=== PATIENT | male | born 2000 | race Caucasian/White ===

== ENCOUNTER 2023-08-29 20:22 | Inpatient (IN) | payer SELFPAY ==
[2023-08-29 20:26] VITALS: BP 163/84; PULSE 115; RESP 16; TEMP 36.7; O2SAT 96; BMI 30.4
--- NOTE | 2023-08-29 20:32 | ED.C_ITS ---
HPI - Psych 2 General: Chief Complaint: Psychiatric Symptoms Stated Complaint: SI Time Seen by Provider: 08/29/23 20:22 History of Present Illness: 24-year-old male presents emergency depa rtment via EMS personnel with complaints of feeling like he is very depressed and having significant thoughts of harming himself. He states that he recently got out of detention and since that time he is been more and more depressed. He states that he did get an argument with his mother earlier that this evening and when he was leaving the house and decided to walk down the street he thought about turning around and going back to the house getting a gun and putting it to his head and pulling the trigger just so he could end his life. He states his sister recently approximately 1 month ago and the thing that kept him from killing himself today was that he did not want to put additional burden on his mother. Patient is very tearful during our discussion. He states he has attempted previously to take his life by overdosing on pills. He states he has not taken any pills today. He states he realizes he needs some help and just does not know where to go or what to do. He denies homicidal ideation Associated symptoms: Reports depression and suicidal ideation; Deny auditory hallucinations, visual hallucinations or homicidal ideation Review of Systems 2 General: Reports: 10 or more systems reviewed and unremarkable except in HPI and below Psych: Reports: anxiety, depression and suicidal ideation; Denies: visual hallucinations, auditory hallucinations, tactile hallucinations or homicidal ideation Physical Exam 2 Narrative: EXAM NARRATIVE: Constitutional: the patient appears well nourished and with normal development. Vital signs reviewed as documented. HENMT: Normocephalic, atraumatic. External ears normal appearance without drainage. Nose without drainage, normal appearance. Mucus membranes moist. Neck is supple, No jugular venous distension, trachea is midline, no appreciable carotid bruits. No lymphadenopathy. No meningeal signs. Flexion, extension and lateral rotation is without pain. Eyes: Pupils are equal, round, reactive to light and accommodation. No scleral icterus. Extra-ocular movement are intact. Thorax is symmetrical and with equal rise and fall with respirations. Resp: Lungs are clear to auscultation. No wheezes, rales, crackles or ronchi at present. Cardio: Regular rate and rhythm. Positive S1, S2. No appreciable murmurs, rubs or gallops. GI: Abdominal exam reveals normal bowel sounds to all quadrants. No organomegaly. Soft, non-tender to palpation. Extremity: Extremities are non-edematous and both femoral and pedal pulses are 2+ and equal bilaterally. Moves all extremities well, sensation in all extremities. Neuro: Alert and oriented x4, person, place, time and situation. Cranial nerves II through XII are grossly intact, there is no focal neurological deficits that I can appreciate at present. Motor strength in the upper and lower extremities are equal and bilateral 5/5. Psych: Cooperative, calm, tearful, depressed, suicidal ideation. Skin: No lesions, rashes. No gross abnormalities noted. Back: Symmetrical, no obvious deformity, No CVA tenderness Course 2 Vital Signs: Vital signs: Vital Signs Temperature 98.0 F 08/29/23 20: Pulse Rate 115 H 08/29/23 20: Respiratory Rate 16 08/29/23 20: Blood Pressure 163/84 08/29/23 20: Pulse Oximetry 96 08/29/23 20:26 Oxygen Delivery Me thod Room Air 08/29/23 20:26 MDM - Psych Medical Decision Making Physical exam completed and documented I will obtain psychiatric medical clearance labs and contact the neuro psychiatry unit for placement Medical Records I reviewed the patient's medical records. Lab Data I reviewed the patient's lab results. 08/29/23 20:33 08/29/23 20:33 Laboratory Results WBC 9.02 10^3/uL (4.5-13.0) 08/29/23 20: RBC 5.14 10^6/uL (3.85-5.65) 08/29/23 20: Hgb 15.80 g/dL (13.2-15.6) H 08/29/23 20:33 Hct 47.1 % (37-53) 08/29/23 20: MCV 91.6 fl (82-101) 08/29/23 20: MCH 30.7 pg (27-33) 08/29/23 20: MCHC 33.5 g/dL (30-55) 08/29/23 20: RDW 12.3 % (12.1-15.1) 08/29/23 20: Plt Count 256 10^3/cmm (157-399) 08/29/23 20: MPV 9.0 fL (7.4-10.4) 08/29/23 20: Neut % (Auto) 68.1 % 08/29/23 20: Lymph % (Auto) 22.9 % 08/29/23 20: [place] % (Auto) 7.0 % 08/29/23 20: Eos % (Auto) 0.8 % 08/29/23 20: Baso % (Auto) 0.3 % 08/29/23: Neut # (Auto) 6.14 10^3/uL (1.8-8.0) 08/29/23 20: Lymph # (Auto) 2.1 10^3/uL (1.5-6.5) 08/29/23: [place] # (Auto) 0.6 10^3/uL (0.2-0.9) 08/29/23 20: Eos # (Auto) 0.1 10^3/uL (0.0-0.8) 08/29/23: Baso # (Auto) 0.0 10^3/uL (0.0-0.1) 08/29/23 20: Nucleated RBC % (auto) 0 % 08/29/23: Nucleated RBCs # 0.0 /100WBC 08/29/23 20: Sodium 141 mmol/L (136-145) 08/29/23 20: Potassium 4.2 mmol/L (3.5-5.1) 08/29/23 20: Chloride 104 mmol/L (98-107) 08/29/23 20: Carbon Dioxide 26 mmol/L (22-29) 08/29/23 20:33 Anion Gap 15.2 (5-19) 08/29/23 20:33 BUN 12 mg/dL (6-20) 08/29/23 20: Creatinine 0.7 mg/dL (0.7-1.2) 08/29/23 20: GFR Calculation 143.8 mL/min (90-130) H 08/29/23 20: Glucose 107 mg/dL (65-115) 08/29/23 20: Calculated Osmolality 292 mOsm/kg (285-295) 08/29/23 20: Calcium 9.6 mg/dL (8.5-10.5) 08/29/23 20:33 Total Bilirubin 0.2 mg/dL (0.15-1.2) 08/29/23 20:33 AST 51 U/L (0-40) H 08/29/23 20:33 ALT 89 U/L (0-41) H 08/29/23 20:33 Alkaline Phosphatase 74 U/L (40-130) 08/29/23 20: Total Protein 7.2 g/dL (6.6-8.7) 08/29/23 20: Albumin 4.7 g/dL (3.5-5.2) 08/29/23 20: Globulin 2.5 g/dL (1.3-4.6) 08/29/23 20: Urine Color Yellow (Yellow) 08/29/23 21:08 Urine Appearance Sl hazy (CLEAR) A 08/29/23 21:08 Urine pH 6.5 (5-7) 08/29/23 21:08 Ur Specific [place] 1.020 (1.005-1.030) 08/29/23 21:08 Urine Protein Neg (Negative) 08/29/23 21:08 Urine Glucose (UA) Norm (Normal) 08/29/23 21:08 Urine Ketones Negative (Negative) 08/29/23 21: Urine Blood Neg (Negative) 08/29/23 21:08 Urine Nitrate Negative (Negative) 08/29/23 21:08 Urine Bilirubin Neg (Negative) 08/29/23 21:08 Urine Urobilinogen Norm mg/dL (Negative) 08/29/23 21:08 Ur Leukocyte Esterase Negative (Negative) 08/29/23 21:08 Urine RBC 0-4 /hpf (0-2) H 08/29/23 21:08 Urine WBC 0-4 /hpf (0-5) H 08/29/23 21:08 Ur Squamous Epith Cells 0-4 /hpf (0-5) H 08/29/23 21:08 Amorphous Sediment 3+ /hpf 08/29/23 21:08 Urine Bacteria 1+ /hpf (NONE) H 08/29/23 21:08 Salicylates < 0.3 mg/dL (3-10) L 08/29/23 20:33 Urine Opiates Screen Negative ng/mL (Negative) 02/13/24 21:08 Acetaminophen < 5.0 ug/mL (10-30) L 08/29/23 20:33 Ur Barbiturates Screen Negative ng/mL (Negative) 08/29/23 21:08 Ur Phencyclidine Scrn Negative ng/mL (Negative) 08/29/23 21:08 Ur Amphetamines Screen Negative ng/mL (Negative) 08/29/23 21:08 U Benzodiazepines Scrn Positive ng/mL (Negative) H 08/29/23 21:08 Urine Cocaine Screen Negative ng/mL (Negative) 08/29/23 21:08 U Marijuana (THC) Screen Positive ng/mL (Negative) H 08/29/23 21:08 Ethyl Alcohol < 10 mg/dL (0-10) 08/29/23 20:33 No radiology studies performed this visit Discharge Plan Discharge Patient Disposition: Admitted As Inpatient Clinical Impression: Major depressive disorder, Suicidal ideations Condition: Stable Coding Level of Care Code ED Manager Landscape for Nish Stapleton
[2023-08-29 20:39] LABS: Basophils % 0.3 %; Eosinophils # 0.1 10^3/uL (0.0-0.8); Eosinophils % 0.8 %; Hematocrit 47.1 % (37-53); Lymphocytes # 2.1 10^3/uL (1.5-6.5); Lymphocytes % 22.9 %; Mean Corpuscular HGB Conc 33.5 g/dL (30-55); Mean Corpuscular Hemoglobin 30.7 pg (27-33); Mean Corpuscular Volume 91.6 fl (82-101); Monocytes # 0.6 10^3/uL (0.2-0.9); Neutrophils # 6.14 10^3/uL (1.8-8.0); Neutrophils % 68.1 %; Nucleated Red Blood Cells % 0 %; Platelet Count 256 10^3/cmm (157-399); Red Blood Count 5.14 10^6/uL (3.85-5.65); Red Cell Distribution Width 12.3 % (12.1-15.1); White Blood Count 9.02 10^3/uL (4.5-13.0)
[2023-08-29 20:56] LABS: Alanine Aminotransferase 89 U/L (0-41); Albumin Level 4.7 g/dL (3.5-5.2); Alkaline Phosphatase 74 U/L (40-130); Anion Gap 15.2 (5-19); Aspartate Amino Transferase 51 U/L (0-40); Blood Urea Nitrogen 12 mg/dL (6-20); Calcium 9.6 mg/dL (8.5-10.5); Carbon Dioxide 26 mmol/L (22-29); Chloride 104 mmol/L (98-107); Globulin 2.5 g/dL (1.3-4.6); Glomerular Filtration Rate 143.8 mL/min (90-130); Glucose 107 mg/dL (65-115); Osmolality Calculated 292 mOsm/kg (285-295); Potassium 4.2 mmol/L (3.5-5.1); Sodium 141 mmol/L (136-145); Total Bilirubin 0.2 mg/dL (0.15-1.2); Total Protein 7.2 g/dL (6.6-8.7)
[2023-08-29 21:00] LABS: Acetaminophen < 5.0 ug/mL (10-30); Alcohol Level < 10 mg/dL (0-10); Salicylate < 0.3 mg/dL (3-10)
[2023-08-29 21:30] LABS: Amphetamines Screen Urine Negative (Negative); Barbiturates Screen Urine Negative (Negative); Benzodiazepines Screen Urine Positive (Negative); Cocaine Screen Urine Negative (Negative); Opiate Screen Urine Negative (Negative); PCP Screen Urine Negative (Negative); THC Screen Urine Positive (Negative)
[2023-08-29 22:20] LABS: Add Urine Culture? No; Add Urine Microscopic? YES; Amorphous Sediment Urine 3+ /hpf; Bacteria Urine 1+ /hpf; Bilirubin Urine Neg (Negative); Blood Urine Neg (Negative); Glucose Urine UA Norm (Normal); Ketones Urine Negative (Negative); Leukocyte Esterase Urine Negative (Negative); Nitrate Urine Negative (Negative); Protein Urine Neg (Negative); RBC Urine 0-4 /hpf (0-2); Squamous Epithelial Cell Urine 0-4 /hpf (0-5); Urine Appearance SL Hazy (CLEAR); Urine Color Yellow (Yellow); Urobilinogen Urine Norm (Negative); WBC Urine 0-4 /hpf (0-5); pH Urine 6.5 (5-7)
[2023-08-29 23:40] VITALS: BP 124/71; PULSE 98; RESP 17; O2SAT 94
[2023-08-30 00:13] VITALS: BP 124/71; PULSE 98; RESP 17; O2SAT 94
[2023-08-30 06:00] VITALS: BP 131/87; PULSE 84; RESP 16; TEMP 36.6; O2SAT 98
[2023-08-30 08:02] LABS: Basophils % 0.3 %; Eosinophils # 0.1 10^3/uL (0.0-0.8); Eosinophils % 1.4 %; Hematocrit 47.4 % (37-53); Lymphocytes # 1.8 10^3/uL (1.5-6.5); Lymphocytes % 26.8 %; Mean Corpuscular HGB Conc 32.9 g/dL (30-55); Mean Corpuscular Hemoglobin 30.4 pg (27-33); Mean Corpuscular Volume 92.4 fl (82-101); Monocytes # 0.7 10^3/uL (0.2-0.9); Monocytes % 10.8 %; Neutrophils # 3.95 10^3/uL (1.8-8.0); Neutrophils % 60.2 %; Nucleated Red Blood Cells % 0 %; Platelet Count 234 10^3/cmm (157-399); Red Blood Count 5.13 10^6/uL (3.85-5.65); Red Cell Distribution Width 12.4 % (12.1-15.1); White Blood Count 6.56 10^3/uL (4.5-13.0)
[2023-08-30 08:23] LABS: Anion Gap 15.6 (5-19); Blood Urea Nitrogen 18 mg/dL (6-20); Calcium 9.2 mg/dL (8.5-10.5); Carbon Dioxide 28 mmol/L (22-29); Chloride 101 mmol/L (98-107); Glomerular Filtration Rate 123.2 mL/min (90-130); Glucose 101 mg/dL (65-115); Osmolality Calculated 292 mOsm/kg (285-295); Potassium 4.6 mmol/L (3.5-5.1); Sodium 140 mmol/L (136-145)
[2023-08-30] MEDS: nicotine 2 mg Gum BUCCAL ×3 (10:15→20:33)
[2023-08-30] MEDS: hyDROXYzine 25 mg Capsule 50 MG PO (10:15)
--- NOTE | 2023-08-30 10:39 | PC.NURSE ---
SPOKE WITH [facility] @[phone] VERIFING PT HOME MEDICATION. PT WAS DISCHARGED FROM THEIR FACILITY ON 08/04/2023, PT RETURNED TO [facility] WHERE HE WAS INCARCERATED FROM 07/25/23-08-23-23. UPON RELEASE PT WAS UNABLE TO HAT SIZER HIS PRESCRIPTION DO TO LACK OF FUNDS AND NO INSURANCE.
[2023-08-30] MEDS: ARIPiprazole 30 mg Tablet PO (12:38)
[2023-08-30] MEDS: nicotine 21 mg Patch 1 PATCH TRANSDERMA (13:16)
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
[2023-08-30 14:00] VITALS: BP 126/80; PULSE 99; RESP 16; TEMP 36.8; O2SAT 98
[2023-08-30] MEDS: CLONazepam 0.5 mg Tablet PO ×2 (14:28→20:05)
[2023-08-30] MEDS: trazodone 100 mg Tablet PO (20:05)
[2023-08-30 21:13] VITALS: BP 151/80; PULSE 93; RESP 20; TEMP 36.7; O2SAT 99
[2023-08-31 06:00] VITALS: BP 139/69; PULSE 99; RESP 17; TEMP 36.4; O2SAT 99
--- NOTE | 2023-08-31 06:35 | PC.NURSE ---
At the beginning of the shift patient approached this tech requesting to speak. 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 Patient stated that he knew that he was not on a hold and inquired about leaving AMA. This tech spoke with patient about his concerns and told patient that I would speak with the Charge nurse and get back to him. After speaking with the CN, this tech spoke with the patient and asked if he would consider staying the night tonight and speaking with the Doctor about his concerns in the morning. Patient agreed and stated that his mother has the next couple of days off and he was wanting to help her around the house. 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 I let patient know to make sure that he addresses his concerns with the Doctor. Patient was very appreciative and thankful for the talk.
[2023-08-31] MEDS: CLONazepam 0.5 mg Tablet PO ×3 (08:13→20:06)
[2023-08-31] MEDS: ARIPiprazole 30 mg Tablet PO (08:13)
[2023-08-31] MEDS: nicotine 21 mg Patch 1 PATCH TRANSDERMA (08:13)
[2023-08-31] MEDS: OLANZapine 5 mg ODT PO (12:42)
--- NOTE | 2023-08-31 12:57 | PC.NURSE ---
pt in hallway tearful, stating he is ready to explode if he isn't discharged today, pt started to cry saying this place is just [facility] and I want to go home.spoke with pt about the importance of having his medication back in his system so that he is able to cope with his emotions more efficiently. pt stated understanding.
[2023-08-31 14:00] VITALS: BP 120/69; PULSE 111; RESP 18; TEMP 36.8; O2SAT 97
--- NOTE | 2023-08-31 14:37 | P.NPUPN_ITS ---
Subjective NPU 2 Subjective: 22-year-old male with a history of bipolar depression along with panic attacks and PTSD admitted with suicidal ideation with a plan to shoot himself with a gun. The patient reports that he did not feel comfortable being here. He reported not having suicidal thoughts at this time. He had endorsed some depression but stated that he would feel comfortable with going home soon. Patient had appeared to ruminate about things and reported that he continued to have problems with obsessing about various things in his life. He had reported history of mood instability but stated the Abilify had been helpful for him. He reported no panic attacks last night while remaining on Klonopin routinely. He had reported some improved sleep. Mental Status Exam 2 MSE Comments: Well-nourished well-developed male who appeared his stated age with fair grooming and fleeting eye contact. There was no evidence of any abnormal involuntary motor movements other than mild psychomotor retardation. He was cooperative with exam and appeared in mild to moderate distress. His speech was normal in regards to rate rhythm and prosody. His mood was described as depressed. His affect was less tearful. His thought process was linear, logical, and organized. His thought content showed no evidence of suicidal ideation with no current plan or intent reported. He denied any homicidal ideation. He did not appear to be responding to internal stimuli. There was no clear evidence of delusional thinking. He denied any auditory or visual hallucinations. He was alert and oriented x 3. His insight was fair. His judgment was poor. His impulse control appeared limited at this time. Vitals/I&O/Wt Last Vital Signs Temp 97.5 F L 08/31/23 06:00 Pulse 99 08/31/23 06:00 Resp 17 08/31/23 06:00 BP 139/69 08/31/23 06:00 Pulse Ox 99 08/31/23 06:00 O2 Del Method Room Air 08/31/23 06:00 Weight last 48 hrs Weight 90.718 kg Data NPU 08/30/23 07:46 08/30/23 07:46 A&P Assessment and plan (1) Bipolar disorder with depression: (2) Panic attacks: (3) History of OCD (obsessive compulsive disorder): (4) Suicidal ideations: (5) PTSD (post-traumatic stress disorder): Plan 22-year-old white male extended history of depression currently diagnosed with bipolar disorder admitted with suicidal ideation and worsening depression along with a history of increased anxiety accompanied by panic attacks. 1. ?Encourage individual, group and milieu therapy. 2. Recommend sober living treatment at the highest level of care to which the patient is willing to commit. 3. Continue q-15 minute checks for safety 4.Continue klonopin, aripiprazole, luvox and trazodone as prescribed Involuntary Hold Information 2 96 Hour Hold: 96 Hour Involuntary Admission: No Attestations NPU 2 Medical Necessity Statement*: Inpatient hospitalization is medically necessary and deemed to be the clinically appropriate intervention at this time.? Medications will be initiated and adjusted as clinically indicated.?The patient?s likely length of stay is 2-3 days.? Coding Level of Care Code Acute Code for [facility] Fwd Diagnoses Bipolar disorder with depression F31.9 Panic attacks F41.0 History of OCD (obsessive compulsive disorder) Z86.59 Suicidal ideations R45.851 PTSD (post-traumatic stress disorder) F43.10
[2023-08-31] MEDS: nicotine 2 mg Gum BUCCAL ×2 (16:44→19:48)
[2023-08-31 19:24] VITALS: BP 126/67; PULSE 97; RESP 18; TEMP 36.6; O2SAT 98
[2023-08-31] MEDS: trazodone 100 mg Tablet PO (20:06)
[2023-08-31] MEDS: NON-FORMULARY MEDICATION (Fluvoxamine 100 MG) 100 EACH PO (20:06)
[2023-09-01 06:00] VITALS: BP 148/87; PULSE 73; RESP 15; TEMP 36.4; O2SAT 98
[2023-09-01] MEDS: CLONazepam 0.5 mg Tablet PO (08:07)
[2023-09-01] MEDS: ARIPiprazole 30 mg Tablet PO (08:07)
[2023-09-01] MEDS: nicotine 2 mg Gum BUCCAL ×2 (08:09→10:28)
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
[2023-09-01 12:14] VITALS: BP 148/87; PULSE 73; RESP 15; TEMP 36.4; O2SAT 98
[2023-09-01] MEDS: hyDROXYzine 25 mg Capsule 50 MG PO (13:11)
== END 2023-09-01 13:45 | disposition home or self-care (01) | DRG 885 ==
LOC: ER 21:52 → NP 23:47
PROVIDERS: Admitting Provider Psychiatry & Neurology Psychiatry; Emergency Provider Internal Medicine; PCP Nurse Practitioner Family; Visit Provider Psychiatry & Neurology Psychiatry
DX: F31.9 Bipolar disorder, unspecified (principal); R45.851 Suicidal ideations; F41.0 Panic disorder [episodic paroxysmal anxiety]; F43.10 Post-traumatic stress disorder, unspecified; Z72.0 Tobacco use
CPT/HCPCS: 36415; 80048; 80053; 80306; 80307; 81001; 85025; 97165; 99285

== ENCOUNTER 2023-09-27 00:21 | Inpatient (IN) | payer SELFPAY ==
[2023-09-27] VITALS (8 sets, daily range): BP systolic 111–135; BP diastolic 67–82; PULSE 72–83; RESP 16–18; TEMP 36.3–36.7; O2SAT 96–98; BMI 31.0
--- NOTE | 2023-09-27 00:25 | ECG_ITS ---
[facility] Test Date: 2023-09-26 Pat Name: Parth Newman Department: Room: 150 Gender: Male [employer]: : 2000 Requested By: Atilio Mack Order Number: [id number] Brneden MD: Chang Russell M.D. Measurements Intervals [place] Rate: 68 P: 15 WI: 156 QRS: 34 QRSD: 103 T: 5 QT: 336 QTc: 359 Interpretive Statements SINUS RHYTHM WITH MARKED SINUS ARRHYTHMIA NONSPECIFIC T-WAVE ABNORMALITY No previous ECG available for comparison Electronically Signed On 09-27-2023 10:56:19 CDT by Chang Russell M.D. [id number]
--- NOTE | 2023-09-27 00:26 | ED.C_ITS ---
HPI - Psych 2 General: Chief Complaint: Psychiatric Symptoms Stated Complaint: SI Time Seen by Provider: 09/27/23 00:25 History of Present Illness: 22-year-old male [facility] Patient states that he has had a recent family member and became very depressed. He states he has had history in the past of attempted suicide and tonight he became depressed enough that he had collected 7 or 8 different bottles of pills and was initially going to take the pills but then got an argument with his mother who stated that she reminded him that there was other people think about besides himself at which time the police were called and he came voluntarily to the emergency department to seek help. He states that he has not having thoughts of homicidal ideation. He states he is very depressed and needs to get help. He denies auditory or visual hallucinations. Patient states he is previously admitted here to the neuropsychiatric unit and was discharged on September 01, 2023. Associated symptoms: Reports depression and suicidal ideation; Deny auditory hallucinations, visual hallucinations or homicidal ideation Review of Systems 2 General: Reports: 10 or more systems reviewed and unremarkable except in HPI and below Psych: Reports: depression and suicidal ideation; Denies: visual hallucinations, auditory hallucinations, tactile hallucinations or homicidal ideation PFS ED 2 PFSH: Social History Smoking and tobacco/nicotine status: current every day tobacco/nicotine user Physical Exam 2 Narrative: EXAM NARRATIVE: Constitutional: the patient appears well nourished and with normal development. Vital signs reviewed as documented. HENMT: Normocephalic, atraumatic. External ears normal appearance without drainage. Nose without drainage, normal appearance. Mucus membranes moist. Neck is supple, No jugular venous distension, trachea is midline, no appreciable carotid bruits. No lymphadenopathy. No meningeal signs. Flexion, extension and lateral rotation is without pain. Eyes: Pupils are equal, round, reactive to light and accommodation. No scleral icterus. Extra-ocular movement are intact. Thorax is symmetrical and with equal rise and fall with respirations. Resp: Lungs are clear to auscultation. No wheezes, rales, crackles or ronchi at present. Cardio: Regular rate and rhythm. Positive S1, S2. No appreciable murmurs, rubs or gallops. GI: Abdominal exam reveals normal bowel sounds to all quadrants. No organomegaly. No obvious palpable masses noted. No hepatomegally appreciated. Soft, non-tender to palpation. Extremity: Extremities are non-edematous and both femoral and pedal pulses are 2+ and equal bilaterally. Moves all extremities well, sensation in all extremities. Neuro: Alert and oriented x4, person, place, time and situation. Cranial nerves II through XII are grossly intact, there is no focal neurological deficits that I can appreciate at present. Sensation intact to all extremities. Motor strength in the upper and lower extremities are equal and bilateral 5/5. Psych: Cooperative, calm, depressed, suicidal ideation, Skin: No lesions, rashes. No gross abnormalities noted. Back: Symmetrical, no obvious deformity, No CVA tenderness Course 2 Vital Signs: Vital signs: Vital Signs Temperature 97.4 F L 09/27/23 20:15 Pulse Rate 72 09/27/23 20:15 Respiratory Rate 16 09/27/23 20:15 Blood Pressure 124/82 09/27/23 20:15 Pulse Oximetry 97 09/27/23 20:15 Oxygen Delivery Me thod Room Air 09/27/23 20:15 MDM - Psych Medical Decision Making Physical exam completed and documented I will obtain psychiatric medical clearance labs and request admission to the neuropsych unit. Medical Records I reviewed the patient's medical records. Lab Data I reviewed the patient's lab results. 09/27/23 08:20 09/27/23 08:20 Laboratory Results WBC 8.83 10^3/uL (4.5-13.0) 09/27/23 00:30 RBC 5.12 10^6/uL (3.85-5.65) 09/27/23 00:30 Hgb 15.60 g/dL (13.2-15.6) 09/27/23 00:30 Hct 45.3 % (37-53) 09/27/23 00:30 MCV 88.5 fl (82-101) 09/27/23 00:30 MCH 30.5 pg (27-33) 09/27/23 00:30 MCHC 34.4 g/dL (30-55) 09/27/23 00:30 RDW 12.2 % (12.1-15.1) 09/27/23 00:30 Plt Count 314 10^3/cmm (157-399) 09/27/23 00:30 MPV 8.5 fL (7.4-10.4) 09/27/23 00:30 Neut % (Auto) 64.1 % 09/27/23 00:30 Lymph % (Auto) 27.1 % 09/27/23 00:30 [place] % (Auto) 7.8 % 09/27/23 00:30 Eos % (Auto) 0.3 % 09/27/23 00:30 Baso % (Auto) 0.5 % 09/27/23 00:30 Neut # (Auto) 5.66 10^3/uL (1.8-8.0) 09/27/23 00:30 Lymph # (Auto) 2.4 10^3/uL (1.5-6.5) 09/27/23 00:30 [place] # (Auto) 0.7 10^3/uL (0.2-0.9) 09/27/23 00:30 Eos # (Auto) 0.0 10^3/uL (0.0-0.8) 09/27/23 00:30 Baso # (Auto) 0.0 10^3/uL (0.0-0.1) 09/27/23 00:30 Nucleated RBC % (auto) 0 % 09/27/23 00:30 Nucleated RBCs # 0.0 /100WBC 09/27/23 00:30 Sodium 139 mmol/L (136-145) 09/27/23 00:30 Potassium 3.7 mmol/L (3.5-5.1) 09/27/23 00:30 Chloride 103 mmol/L (98-107) 09/27/23 00:30 Carbon Dioxide 20 mmol/L (22-29) L 09/27/23 00:30 Anion Gap 19.7 (5-19) H 09/27/23 00:30 BUN 13 mg/dL (6-20) 09/27/23 00:30 Creatinine 0.9 mg/dL (0.7-1.2) 09/27/23 00:30 GFR Calculation 107.6 mL/min (90-130) 09/27/23 00:30 Glucose 84 mg/dL (65-115) 09/27/23 00:30 Calculated Osmolality 287 mOsm/kg (285-295) 09/27/23 00:30 Calcium 9.5 mg/dL (8.5-10.5) 09/27/23 00:30 Total Bilirubin 0.4 mg/dL (0.15-1.2) 09/27/23 00:30 AST 19 U/L (0-40) 09/27/23 00:30 ALT 26 U/L (0-41) 09/27/23 00:30 Alkaline Phosphatase 81 U/L (40-130) 09/27/23 00:30 Total Protein 7.8 g/dL (6.6-8.7) 09/27/23 00:30 Albumin 5.2 g/dL (3.5-5.2) 09/27/23 00:30 Globulin 2.6 g/dL (1.3-4.6) 09/27/23 00:30 Urine Color Yellow (Yellow) 09/27/23 00:38 Urine Appearance Sl hazy (CLEAR) A 09/27/23 00:38 Urine pH 5 (5-7) 09/27/23 00:38 Ur Specific Fox 1.030 (1.005-1.030) 09/27/23 00:38 Urine Protein Trace (Negative) 09/27/23 00:38 Urine Glucose (UA) Norm (Normal) 09/27/23 00:38 Urine Ketones 1+ (Negative) H 09/27/23 00:38 Urine Blood 2+ (Negative) H 09/27/23 00:38 Urine Nitrate Negative (Negative) 09/27/23 00:38 Urine Bilirubin Neg (Negative) 09/27/23 00:38 Urine Urobilinogen Neg mg/dL (Negative) 09/27/23 00:38 Ur Leukocyte Esterase Negative (Negative) 09/27/23 00:38 Urine RBC 0-4 /hpf (0-2) H 09/27/23 00:38 Urine WBC None /hpf (0-5) 09/27/23 00:38 Ur Squamous Epith Cells None /hpf (0-5) 09/27/23 00:38 Calcium Oxalate Crystal 0-4 /hpf H 09/27/23 00:38 Amorphous Sediment Not Reportable 09/27/23 00:38 Urine Bacteria Trace /hpf (NONE) 09/27/23 00:38 Urine Mucus 3+ /hpf 09/27/23 00:38 Salicylates < 0.3 mg/dL (3-10) L 09/27/23 00:30 Urine Opiates Screen Negative ng/mL (Negative) 09/27/23 00:38 Acetaminophen < 5.0 ug/mL (10-30) L 09/27/23 00:30 Ur Barbiturates Screen Negative ng/mL (Negative) 09/27/23 00:38 Ur Phencyclidine Scrn Negative ng/mL (Negative) 09/27/23 00:38 Ur Amphetamines Screen Negative ng/mL (Negative) 09/27/23 00:38 U Benzodiazepines Scrn Positive ng/mL (Negative) H 09/27/23 00:38 Urine Cocaine Screen Negative ng/mL (Negative) 09/27/23 00:38 U Marijuana (THC) Screen Positive ng/mL (Negative) H 09/27/23 00:38 Ethyl Alcohol < 10 mg/dL (0-10) 09/27/23 00:30 No radiology studies performed this visit Discharge Plan Discharge Patient Disposition: Admitted As Inpatient Admit Provider: Fadi Bowie Clinical Impression: Suicidal ideation Depression Qualifiers: Depression Type: unspecified Qualified Code(s): F32.A - Depression, unspecified Condition: Stable Coding Level of Care Code ED Flatbed [employer] 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
[2023-09-27 00:37] LABS: Basophils % 0.5 %; Eosinophils % 0.3 %; Hematocrit 45.3 % (37-53); Lymphocytes # 2.4 10^3/uL (1.5-6.5); Lymphocytes % 27.1 %; Mean Corpuscular HGB Conc 34.4 g/dL (30-55); Mean Corpuscular Hemoglobin 30.5 pg (27-33); Mean Corpuscular Volume 88.5 fl (82-101); Mean Platelet Volume 8.5 fL (7.4-10.4); Monocytes # 0.7 10^3/uL (0.2-0.9); Monocytes % 7.8 %; Neutrophils # 5.66 10^3/uL (1.8-8.0); Neutrophils % 64.1 %; Nucleated Red Blood Cells % 0 %; Platelet Count 314 10^3/cmm (157-399); Red Blood Count 5.12 10^6/uL (3.85-5.65); Red Cell Distribution Width 12.2 % (12.1-15.1); White Blood Count 8.83 10^3/uL (4.5-13.0)
[2023-09-27 00:54] LABS: Amphetamines Screen Urine Negative (Negative); Barbiturates Screen Urine Negative (Negative); Benzodiazepines Screen Urine Positive (Negative); Cocaine Screen Urine Negative (Negative); Opiate Screen Urine Negative (Negative); PCP Screen Urine Negative (Negative); THC Screen Urine Positive (Negative)
[2023-09-27 00:55] LABS: Alanine Aminotransferase 26 U/L (0-41); Albumin Level 5.2 g/dL (3.5-5.2); Alkaline Phosphatase 81 U/L (40-130); Anion Gap 19.7 (5-19); Aspartate Amino Transferase 19 U/L (0-40); Blood Urea Nitrogen 13 mg/dL (6-20); Calcium 9.5 mg/dL (8.5-10.5); Carbon Dioxide 20 mmol/L (22-29); Chloride 103 mmol/L (98-107); Creatinine Clr Calc Pharmacy 149.1141; Globulin 2.6 g/dL (1.3-4.6); Glomerular Filtration Rate 107.6 mL/min (90-130); Glucose 84 mg/dL (65-115); Osmolality Calculated 287 mOsm/kg (285-295); Potassium 3.7 mmol/L (3.5-5.1); Sodium 139 mmol/L (136-145); Total Bilirubin 0.4 mg/dL (0.15-1.2); Total Protein 7.8 g/dL (6.6-8.7)
[2023-09-27] MEDS: haloperidol inj 5 mg/mL INJ 1 mL IM (01:18)
[2023-09-27 01:20] LABS: Urine Color Yellow (Yellow)
[2023-09-27 01:21] LABS: Add Urine Microscopic? YES; Bacteria Urine TRACE /hpf; Bilirubin Urine Neg (Negative); Blood Urine 2+ (Negative); Calcium Oxalate Crystals Urine 0-4 /hpf; Glucose Urine UA Norm (Normal); Ketones Urine 1+ (Negative); Leukocyte Esterase Urine Negative (Negative); Mucus Urine 3+ /hpf; Nitrate Urine Negative (Negative); Protein Urine Trace (Negative); RBC Urine 0-4 /hpf (0-2); Urine Appearance SL Hazy (CLEAR); Urobilinogen Urine Neg (Negative); pH Urine 5 (5-7)
[2023-09-27 01:22] LABS: Acetaminophen < 5.0 ug/mL (10-30); Alcohol Level < 10 mg/dL (0-10); Salicylate < 0.3 mg/dL (3-10)
[2023-09-27 01:22] LABS: Add Urine Culture? No
--- NOTE | 2023-09-27 01:37 | PC.NURSE ---
Patient report was called to CALVIN Martinez in [facility]. All questions and concerns were addressed at time of report.
--- NOTE | 2023-09-27 02:40 | PC.NURSE ---
Admission Note Pt arrived to [facility] by wheelchair at 0145. Pt complains of suicidal ideation, Pt stated that he is here because he is having at lot of stressors at home. Pt had a plan to overdose of medications he found at home but voluntarily went with police officers to get help. During assessment pt denies SI/HI/AVH. Pt also told staff that he has not taken any of his medications since he was last admitted. Pt was dressed into [facility] scrubs and is now observed resting in bed with eyes closed. Behavioral monitoring continues.
--- NOTE | 2023-09-27 06:48 | PC.NURSE ---
Due to patient arriving late to until, per CN on RR documented.
[2023-09-27 08:34] LABS: Basophils % 0.4 %; Eosinophils # 0.1 10^3/uL (0.0-0.8); Hematocrit 45.9 % (37-53); Lymphocytes # 2.4 10^3/uL (1.5-6.5); Lymphocytes % 34.4 %; Mean Corpuscular HGB Conc 34.2 g/dL (30-55); Mean Corpuscular Hemoglobin 30.8 pg (27-33); Mean Corpuscular Volume 90.2 fl (82-101); Mean Platelet Volume 8.7 fL (7.4-10.4); Monocytes # 0.5 10^3/uL (0.2-0.9); Monocytes % 7.7 %; Neutrophils # 3.95 10^3/uL (1.8-8.0); Neutrophils % 56.4 %; Nucleated Red Blood Cells % 0 %; Platelet Count 285 10^3/cmm (157-399); Red Blood Count 5.09 10^6/uL (3.85-5.65); Red Cell Distribution Width 12.4 % (12.1-15.1); White Blood Count 7.01 10^3/uL (4.5-13.0)
[2023-09-27 09:14] LABS: Blood Urea Nitrogen 15 mg/dL (6-20); Carbon Dioxide 21 mmol/L (22-29); Chloride 102 mmol/L (98-107); Creatinine Clr Calc Pharmacy 149.1141; Glomerular Filtration Rate 107.6 mL/min (90-130); Glucose 128 mg/dL (65-115); Osmolality Calculated 286 mOsm/kg (285-295); Sodium 137 mmol/L (136-145)
[2023-09-27 09:18] LABS: Anion Gap 18.2 (5-19); Potassium 4.2 mmol/L (3.5-5.1)
[2023-09-27] MEDS: hyDROXYzine 25 mg Capsule 50 MG PO ×2 (12:09→20:29)
[2023-09-27] MEDS: nicotine 2 mg Gum BUCCAL (12:15)
[2023-09-27] MEDS: OLANZapine 5 mg ODT PO ×2 (12:36→20:30)
[2023-09-27] MEDS: haloperidol 5 mg Tablet PO (12:52)
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
--- NOTE | 2023-09-27 13:12 | PC.NURSE ---
Patient tearful, upset and anxious about the possibility of going to care home. Patient given zyprexa 5mg ODT first, a short time later, patient given haldol 5mg PO.
[2023-09-28 06:00] VITALS: BP 115/77; PULSE 78; RESP 16; TEMP 36.4; O2SAT 98
[2023-09-28] MEDS: hyDROXYzine 25 mg Capsule 50 MG PO ×3 (08:16→19:45)
[2023-09-28] MEDS: ARIPiprazole 30 mg Tablet PO (08:17)
[2023-09-28] MEDS: nicotine 2 mg Gum BUCCAL (08:18)
[2023-09-28] MEDS: OLANZapine 5 mg ODT PO ×2 (09:05→14:14)
--- NOTE | 2023-09-28 09:05 | PC.NURSE ---
Patient visibly anxious, tearful, pacing the halls. Patient given zyprexa 5mg ODT
--- NOTE | 2023-09-28 10:51 | P.NPUPN_ITS ---
Subjective NPU 2 Subjective: Patient presented today reporting that he is appreciative of being here and feels he is probably fine to go home. He discussed how he has bouts of anxiety that leads to him overreacting at times. We discussed that these are things medication could be helpful with and that we would make sure he has medication at discharge. Additionally we had a lengthy discussion about the crisis stabilization center and how it could act as a middle ground for moments where he is struggling. Instead of coming to the emergency department we discussed him going to the crisis stabilization center and having someone he could speak to and help deconstruct the situation. He denies any side effects of the medication. We discussed the likelihood of discharge tomorrow. Mental Status Exam 2 MSE Comments: This is a well-nourished, well-developed, white male, in hospital scrubs with adequate grooming and limited contact. No abnormal movements, except for mild psychomotor agitation. Cooperative with exam in mild to moderate distress. Speech was mostly normal rate and slightly decreased volume, quivering a lot secondary to being on the verge of tears. Mood described as depressed and anxious; affect emotional and occasionally tearful. Thought process, organized. Thought content: patient denies active suicidal or homicidal ideation; patient endorsed paranoia but he feels that is related to his situation may be; patient denied any auditory or visual hallucinations. Attention, concentration, and memory appeared intact, but none were formally tested. Alert and oriented times three. Insight and judgment appear fair. Impulse control is limited. Vitals/I&O/Wt Last Vital Signs Temp 97.5 F L 09/28/23 06:00 Pulse 78 09/28/23 06:00 Resp 16 09/28/23 06:00 BP 115/77 09/28/23 06:00 Pulse Ox 98 09/28/23 06:00 O2 Del Method Room Air 09/28/23 06:00 Weight last 48 hrs Weight 95.254 kg Data NPU 09/27/23 08:20 09/27/23 08:20 A&P Assessment and plan (1) Bipolar disorder with depression: (2) Panic attacks: (3) History of OCD (obsessive compulsive disorder): (4) Suicidal ideations: (5) PTSD (post-traumatic stress disorder): Plan 22-year-old white male extended history of depression currently diagnosed with bipolar disorder admitted with suicidal ideation and worsening depression along with a history of increased anxiety accompanied by panic attacks. 1. ?Encourage individual, group and milieu therapy. 2. Recommend sober living treatment at the highest level of care to which the patient is willing to commit. 3. Continue q-15 minute checks for safety 4. Restart medications at appropriate doses. Involuntary Hold Information 2 96 Hour Hold: 96 Hour Involuntary Admission: No Attestations NPU 2 Medical Necessity Statement*: Inpatient hospitalization is medically necessary and the clinically appropriate intervention at this time. We will monitor medications and make changes as indicated. Likely length of stay 1 day. Coding Level of Care Code Acute Code for [facility] Fwd Diagnoses Bipolar disorder with depression F31.9 Panic attacks F41.0 History of OCD (obsessive compulsive disorder) Z86.59 Suicidal ideations R45.851 PTSD (post-traumatic stress disorder) F43.10
[2023-09-28] MEDS: haloperidol 5 mg Tablet PO (11:15)
[2023-09-28 13:54] VITALS: BP 121/73; PULSE 97; RESP 17; TEMP 36.5; O2SAT 97
--- NOTE | 2023-09-28 15:34 | PC.NURSE ---
PT HAS RECEIVED MULTIPLE PRN MEDIATIONS FOR ANXIETY. VISTARIL 50 MG TIMES 2, ZYDIS 5 MG TIMES 2 AND HALDOL 5 MG TIMES ONE. PT CONTINUES TO STATE HE IS VERY ANXIOUS AND NOTHING HAS HELPED, IT ONLY PUTS ME TO SLEEP. DR. MONTGOMERY WAS NOTIFIED OF PT STATUS AND MULTIPLE USE OF PRNS. NEW ORDERS WERE RECEIVED FOR CLONAZEPAM 0.5 MG PO DAILY PRN FOR ANXIEY/AGITATION. PT WAS EDUCATED ON NEW ORDERS, ALL QUESTIONS ANSWERED AND SUPPORT WAS VOICED.
[2023-09-28] MEDS: CLONazepam 0.5 mg Tablet PO (18:05)
[2023-09-28] MEDS: trazodone 100 mg Tablet PO (19:46)
[2023-09-28 20:40] VITALS: BP 115/59; PULSE 71; RESP 17; TEMP 36.8; O2SAT 96
[2023-09-29 06:00] VITALS: BP 159/79; PULSE 95; RESP 15; TEMP 36.6; O2SAT 97
[2023-09-29] MEDS: ARIPiprazole 30 mg Tablet PO (07:41)
[2023-09-29] MEDS: hyDROXYzine 25 mg Capsule 50 MG PO (07:41)
--- NOTE | 2023-09-29 07:47 | PC.NURSE ---
Patient reports mild anxiety because he is ready to be discharged so he won't miss his niece's birthday constitution party today. Patient denies SI, HI, AVH. Patient states that he is try to stay even and calm despite his anxiety. Administered vistaril 50mg PO to patient.
[2023-09-29] MEDS: nicotine 2 mg Gum BUCCAL (09:06)
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
[2023-09-29] MEDS: CLONazepam 0.5 mg Tablet PO (12:26)
[2023-09-29 12:50] VITALS: BP 159/79; PULSE 95; RESP 15; TEMP 36.6; O2SAT 97
== END 2023-09-29 14:00 | disposition home or self-care (01) | DRG 885 ==
LOC: ER 00:36 → NP 01:31
PROVIDERS: Admitting Provider Psychiatry & Neurology Psychiatry; Emergency Provider Internal Medicine; PCP Nurse Practitioner Family; Visit Provider Psychiatry & Neurology Psychiatry
DX: F31.9 Bipolar disorder, unspecified (principal); R45.851 Suicidal ideations; F41.1 Generalized anxiety disorder; F41.0 Panic disorder [episodic paroxysmal anxiety]; F90.9 Attention-deficit hyperactivity disorder, unspecified type; F42.9 Obsessive-compulsive disorder, unspecified; F43.10 Post-traumatic stress disorder, unspecified; F17.210 Nicotine dependence, cigarettes, uncomplicated; F12.90 Cannabis use, unspecified, uncomplicated; Z81.8 Family history of other mental and behavioral disorders; Z81.3 Family history of other psychoactive substance abuse and dependence; Z91.51 Personal history of suicidal behavior; Z62.812 Personal history of neglect in childhood; Z62.810 Personal history of physical and sexual abuse in childhood; Z62.811 Personal history of psychological abuse in childhood; Z91.410 Personal history of adult physical and sexual abuse; J45.909 Unspecified asthma, uncomplicated
CPT/HCPCS: 36415; 80048; 80053; 80306; 80307; 81001; 85025; 93005; 96372; 97165; 99285; J1630

== ENCOUNTER 2023-11-18 13:56 | Inpatient (IN) | payer SELFPAY ==
[2023-11-18 13:57] VITALS: BP 147/86; PULSE 69; RESP 18; TEMP 36.6; O2SAT 97
--- NOTE | 2023-11-18 14:01 | W.ED.PSYCHS ---
HPI - Psych General: Chief Complaint: Psychiatric Symptoms Stated Complaint: MHE Time Seen by Provider: 11/18/23 14:00 Source: patient Mode of arrival: EMS History of Present Illness: 23-year-old male presents to the emergency room via EMS. He had called 911 because he was concerned he would hurt himself medications in a bag been keeping by his bed thinking about harming himself but he has not yet done anything to this point. He has been seen by [facility] [place] for an intake but did not have any follow-up response to be on several medications and not been taking it because it logistically cannot afford them and cannot get anywhere to refill his medications. Self last couple weeks is collected large number of [id number] MD complaint: suicidal ideation Onset (ago): week(s) Relieving factors: none Exacerbating factors: none Associated symptoms: Reports depression and suicidal ideation; Deny auditory hallucinations, visual hallucinations, delusions, homicidal ideation, racing thoughts or other Treatments prior to arrival: none If self harm: admits thoughts of self harm and has plan Review of Systems Const: Denies: fever(s) or chills Card: Denies: chest pain Resp: Denies: dyspnea GI: Denies: abdominal pain : Denies: dysuria, urinary frequency or urinary urgency Musc: Denies: neck pain or back pain Skin/Breast: Denies: rash Psych: Reports: depression and suicidal ideation; Denies: visual hallucinations, auditory hallucinations or homicidal ideation [facility] PFSH: Medical History Psychiatric care Depression Social History Smoking and tobacco/nicotine status: current every day tobacco/nicotine user Physical Exam Const: GENERAL APPEARANCE: cooperative and comfortable ORIENTATION/CONSCIOUSNESS: Yes awake, Yes oriented to person, Yes oriented to place and Yes oriented to time HENMT: COMMON NORMALS: normocephalic, atraumatic and hearing grossly normal bilaterally HEAD & SCALP: normocephalic and atraumatic Resp: COMMON NORMALS: normal respiratory effort, No retractions, No use of accessory muscles and clear to auscultation bilaterally AUSCULTATION: clear to auscultation bilaterally Cardio: COMMON NORMALS: regular rate, regular rhythm and No murmurs present (Cardio) RATE: regular rate RHYTHM: regular rhythm Extremity: COMMON NORMALS: normal to inspection, capillary refill normal, no clubbing, cyanosis or edema, no calf tenderness and no pedal edema Neuro: SENSORIUM/ORIENTATION: Yes oriented to person, Yes oriented to place and Yes oriented to time Psych: THOUGHT CONTENT: No delusions Skin: COMMON NORMALS: no rashes or lesions noted GENERAL SKIN EXAM: no rashes or lesions noted Course Vital Signs: Vital signs: Vital Signs Temperature 98 F 11/18/23 13:57 Pulse Rate 69 11/18/23 13:57 Respiratory Rate 18 11/18/23 13:57 Blood Pressure 147/86 11/18/23 13:57 Pulse Oximetry 97 11/18/23 13:57 Oxygen Delivery Me thod Room Air 11/18/23 13:57 MDM - Psych Medical Decision Making Patient has had been planning for several weeks to harm himself has not yet advance lethality. He was previously on medications but was unable to get them. Discussed with Dr. Bowie on-call for hospitalist will admit. Orders written Medical Records I reviewed the patient's medical records. Lab Data I reviewed the patient's lab results. 11/18/23 14:21 11/18/23 14:21 Laboratory Results WBC 6.33 10^3/uL (3.29-11.43) 11/18/23 14:21 RBC 4.95 10^6/uL (3.85-5.65) 11/18/23 14:21 Hgb 15.30 g/dL (11.27-16.99) 11/18/23 14:21 Hct 44.7 % (37-53) 11/18/23 14:21 MCV 90.3 fl (82-101) 11/18/23 14:21 MCH 30.9 pg (27-33) 11/18/23 14:21 MCHC 34.2 g/dL (30-55) 11/18/23 14:21 RDW 11.9 % (12.1-15.1) L 11/18/23 14:21 Plt Count 265 10^3/cmm (157-399) 11/18/23 14:21 MPV 9.3 fL (7.4-10.4) 11/18/23 14:21 Neut % (Auto) 58.5 % 11/18/23 14:21 Lymph % (Auto) 31.0 % 11/18/23 14:21 [place] % (Auto) 8.5 % 11/18/23 14:21 Eos % (Auto) 1.3 % 11/18/23 14:21 Baso % (Auto) 0.5 % 11/18/23 14:21 Neut # (Auto) 3.71 10^3/uL (1.8-7.7) 11/18/23 14:21 Lymph # (Auto) 2.0 10^3/uL (0.8-4.8) 11/18/23 14:21 [place] # (Auto) 0.5 10^3/uL (0.2-0.9) 11/18/23 14:21 Eos # (Auto) 0.1 10^3/uL (0.0-0.8) 11/18/23 14:21 Baso # (Auto) 0.0 10^3/uL (0.0-0.1) 11/18/23 14:21 Nucleated RBC % (auto) 0 % 11/18/23 14:21 Nucleated RBCs # 0.0 /100WBC 11/18/23 14:21 No radiology studies performed this visit Discharge Plan Discharge Patient Disposition: Admitted As Inpatient Clinical Impression: Suicidal ideation, Depression Condition: Stable Prescriptions: No Action Zyrtec 10 mg Tablet 10 mg PO DAILY Tylenol Ex Str Rapid Release 500 mg Tablet 1,000 mg PO Q6H PRN (Reason: Pain) ibuprofen 200 mg Tablet 400 mg PO Q6H PRN (Reason: Pain) Referrals: Ludmila Goncalves FNP [Primary Care Provider] - Coding Level of Care Code ED Supply Chain Generalist for Nsih Stapleton
--- NOTE | 2023-11-18 14:40 | PC.PHAR ---
pt states he takes care of his own medications-pt states hasnt taken his prescription medications in a month-ext shows aripiprazole 30mg daily filled 09/29/23 30d/s-trazodone 100mg hs filled 09/29/23 30d/s-hydroxyzine pamoate 50mg po q6h prn filled 09/29/23 15d/s-rx written fluvoxamine 100mg take 50mg po daily for 6 days then 100mg daily thereafter and clonazepam 0.5mg daily prn 09/29/23-pt states only taken the medications entered
[2023-11-18 14:42] LABS: Basophils % 0.5 %; Eosinophils # 0.1 10^3/uL (0.0-0.8); Eosinophils % 1.3 %; Hematocrit 44.7 % (37-53); Mean Corpuscular HGB Conc 34.2 g/dL (30-55); Mean Corpuscular Hemoglobin 30.9 pg (27-33); Mean Corpuscular Volume 90.3 fl (82-101); Mean Platelet Volume 9.3 fL (7.4-10.4); Monocytes # 0.5 10^3/uL (0.2-0.9); Monocytes % 8.5 %; Neutrophils # 3.71 10^3/uL (1.8-7.7); Neutrophils % 58.5 %; Nucleated Red Blood Cells % 0 %; Platelet Count 265 10^3/cmm (157-399); Red Blood Count 4.95 10^6/uL (3.85-5.65); Red Cell Distribution Width 11.9 % (12.1-15.1); White Blood Count 6.33 10^3/uL (3.29-11.43)
[2023-11-18 15:07] LABS: Alanine Aminotransferase 10 U/L (0-41); Albumin Level 4.8 g/dL (3.5-5.2); Alkaline Phosphatase 75 U/L (40-130); Aspartate Amino Transferase 15 U/L (0-40); Blood Urea Nitrogen 13 mg/dL (6-20); Calcium 9.5 mg/dL (8.5-10.5); Carbon Dioxide 20 mmol/L (22-29); Chloride 105 mmol/L (98-107); Creatinine Clr Calc Pharmacy 144.5395; Globulin 2.6 g/dL (1.3-4.6); Glomerular Filtration Rate 106.5 mL/min (90-130); Glucose 86 mg/dL (65-115); Osmolality Calculated 287 mOsm/kg (285-295); Sodium 139 mmol/L (136-145); Total Bilirubin 0.6 mg/dL (0.15-1.2); Total Protein 7.4 g/dL (6.6-8.7)
[2023-11-18 15:16] LABS: Acetaminophen < 5.0 ug/mL (10-30); Salicylate < 0.3 mg/dL (3-10)
[2023-11-18 15:55] VITALS: BP 153/91; PULSE 61; RESP 16; TEMP 36.4; O2SAT 99
[2023-11-18] MEDS: hyDROXYzine 25 mg Capsule 50 MG PO (16:23)
[2023-11-18] MEDS: OLANZapine 5 mg ODT PO (17:02)
--- NOTE | 2023-11-18 17:03 | PC.NURSE ---
patient crying, pacing the ibarra. This nurse administered zyprexa 5mg odt.
[2023-11-18] MEDS: haloperidol 5 mg Tablet PO (17:39)
--- NOTE | 2023-11-18 17:39 | PC.NURSE ---
Patient anxious, crying and pacing the ibarra. Patient states that the previous medications this nurse has administered were unsuccessful at alleviating his anxiety. Attempts to verbally de-esculate were unsuccessful. Administered haldol 5mg PO to patient
[2023-11-18] MEDS: nicotine 2 mg Gum BUCCAL (17:49)
[2023-11-18 18:33] LABS: Amphetamines Screen Urine Negative (Negative); Barbiturates Screen Urine Negative (Negative); Benzodiazepines Screen Urine Negative (Negative); Cocaine Screen Urine Negative (Negative); Opiate Screen Urine Negative (Negative); PCP Screen Urine Negative (Negative); THC Screen Urine Positive (Negative)
[2023-11-18 19:51] VITALS: BP 136/73; PULSE 59; RESP 18; TEMP 36.6; O2SAT 97
[2023-11-19 06:00] VITALS: BP 131/80; PULSE 66; RESP 18; TEMP 36.6; O2SAT 99
[2023-11-19] MEDS: ARIPiprazole 30 mg Tablet PO (08:34)
[2023-11-19 14:00] VITALS: BP 140/73; PULSE 89; RESP 17; TEMP 36.6; O2SAT 96
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
[2023-11-19] MEDS: nicotine 2 mg Gum BUCCAL (18:06)
[2023-11-19] MEDS: quetiapine XR (24HR) 50 mg Tablet 200 MG PO (19:57)
[2023-11-19 20:53] VITALS: BP 149/79; PULSE 90; RESP 18; TEMP 36.4; O2SAT 97
[2023-11-20 06:00] VITALS: BP 136/76; PULSE 90; RESP 16; O2SAT 99
[2023-11-20] MEDS: hyDROXYzine 25 mg Capsule 50 MG PO (09:59)
[2023-11-20] MEDS: ARIPiprazole 30 mg Tablet PO (10:00)
[2023-11-20] MEDS: nicotine 2 mg Gum BUCCAL ×2 (10:12→13:36)
[2023-11-20 14:00] VITALS: BP 127/82; PULSE 85; RESP 16; TEMP 36.6; O2SAT 98
--- NOTE | 2023-11-20 15:35 | P.NPUPN_ITS ---
Subjective NPU 2 Subjective: patient is a 23-year-old male with bipolar depression admitted with suicidal ideation. Patient had reported that she had slept better on Seroquel given last night. He had endorsed that he continued to have periods of sadness but stated that he would try to be patient and go home when he was better. He had reported having continued recurring thoughts about being but states that he did not have any particular plan. He stated that he had a tendency to ruminate about these thoughts and stated that he had hoped that therapy could help him with better managing his stress and help him better manage the recurring thoughts that often overwhelmed him. He was compliant and attended groups. He reported no other side effects from his Seroquel. He had again reported that he had not been taking Abilify for greater than a month and was agreeable to discontinuing this medication today. Mental Status Exam 2 MSE Comments: This is a well-nourished, well-developed, white male, in hospital scrubs with adequate grooming and limited contact. No abnormal movements, except for mild psychomotor retardation today. He was cooperative with exam in mild to moderate distress. Speech was mostly normal rate and normal in volume. Mood described as down. His affect was less anxious with decreased intensity appreciated. Thought process was linear and organized. Thought content: patient denies active homicidal ideation but endorsed passive suicidal ideation with no plan today; Patient denied any auditory or visual hallucinations. There was no evidence of delusional thinking. Attention, concentration, and memory appeared intact, but none were formally tested. Alert and oriented times three. Insight was poor and judgment appear limited. Impulse control is limited. Vitals/I&O/Wt Last Vital Signs Temp 98 F 11/20/23 14:00 Pulse 85 11/20/23 14:00 Resp 16 11/20/23 14:00 BP 127/82 11/20/23 14:00 Pulse Ox 98 11/20/23 14:00 O2 Del Method Room Air 11/20/23 14:00 Weight last 48 hrs Weight 90.718 kg Data NPU 11/18/23 14:21 11/18/23 14:21 A&P Assessment and plan (1) Bipolar disorder with depression: (2) Panic attacks: (3) History of OCD (obsessive compulsive disorder): (4) Suicidal ideations: (5) PTSD (post-traumatic stress disorder): Plan 22-year-old white male extended history of bipolar disorder admitted with suicidal ideation and worsening depression along with a history of increased anxiety accompanied by panic attacks. He has a history of noncompliance with medications and reports substantial use of THC. 1. ?Encourage individual, group and milieu therapy. 2. Recommend sober living treatment at the highest level of care to which the patient is willing to commit. 3. Continue q-15 minute checks for safety 4. Increase seroquel xr 300mg at 8Pm to target bipolar depression. D/C abilify. Involuntary Hold Information 2 96 Hour Hold: 96 Hour Involuntary Admission: No Attestations NPU 2 Medical Necessity Statement*: Inpatient hospitalization is medically necessary and the clinically appropriate intervention at this time. We will monitor medications and make changes as indicated. He will be in the hospital for over 2 midnights. The patient's likely length of stay 3 to 5 days. Coding Level of Care Code Acute Code for g Fwd Diagnoses Bipolar disorder with depression F31.9 Panic attacks F41.0 History of OCD (obsessive compulsive disorder) Z86.59 Suicidal ideations R45.851 PTSD (post-traumatic stress disorder) F43.10
[2023-11-20] MEDS: nicotine 4 mg lozenge MUCOUS MEM (17:53)
[2023-11-20] MEDS: quetiapine XR (24HR) 300 mg Tablet PO (19:34)
[2023-11-20] MEDS: docusate sodium 100 mg Capsule PO (19:34)
[2023-11-20 20:06] VITALS: BP 142/86; PULSE 89; RESP 16; TEMP 36.7; O2SAT 96
[2023-11-21 06:00] VITALS: BP 143/87; PULSE 91; RESP 18; TEMP 36.4; O2SAT 97
[2023-11-21] MEDS: nicotine 2 mg Gum BUCCAL ×5 (10:08→20:11)
[2023-11-21 14:00] VITALS: BP 143/86; PULSE 89; RESP 16; TEMP 36.6; O2SAT 97
--- NOTE | 2023-11-21 15:15 | P.NPUPN_ITS ---
Subjective NPU 2 Subjective: 23-year-old male with bipolar disorder, PTSD and borderline personality traits admitted with suicidal ideation and worsening depression. Patient had reported that he was feeling better with the Seroquel XR currently. He had reported feeling less tired this morning. He had continued to report having some crying spells. He had reported that he was having less frequent thoughts about hurting himself. He had reported that he wished to communicate better with his family and was hopeful about getting started with psychotherapy again. He had not endorsed any panic attacks. He had endorsed having chronic problems with sustaining attention since childhood. He had reported having chronic problems with managing anxiety. Patient was able to attend groups with some prompting. Mental Status Exam 2 MSE Comments: This is a well-nourished, well-developed, white male, in hospital scrubs with adequate grooming and limited contact. No abnormal movements, except for mild psychomotor retardation today. He was cooperative with exam in moderate distress. Speech was mostly normal rate and normal in volume. Mood described as a liitle better. His affect was less anxious with decreased intensity appreciated. Thought process was linear and organized. Thought content: patient denies active homicidal ideation but endorsed passive suicidal ideation with no plan today; Patient denied any auditory or visual hallucinations. He reported decreased rumination about suicide. There was no evidence of delusional thinking. Attention, concentration, and memory appeared intact, but none were formally tested. Alert and oriented times three. Insight was improving and judgment appear limited. Impulse control is limited. Vitals/I&O/Wt Last Vital Signs Temp 97.9 F 11/21/23 14:00 Pulse 89 11/21/23 14:00 Resp 16 11/21/23 14:00 BP 143/86 11/21/23 14:00 Pulse Ox 97 11/21/23 14:00 O2 Del Method Room Air 11/21/23 14:00 11/21/23 11/21/23 11/21/23 06:59 14:59 22:59 Intake Total 900 / 900 Balance 900 / 900 Data NPU 11/18/23 14:21 11/18/23 14:21 A&P Assessment and plan (1) Bipolar disorder with depression: (2) Panic attacks: (3) History of OCD (obsessive compulsive disorder): (4) Suicidal ideations: (5) PTSD (post-traumatic stress disorder): Plan 22-year-old white male extended history of bipolar disorder admitted with suicidal ideation and worsening depression along with a history of increased anxiety accompanied by panic attacks. He has a history of noncompliance with medications and reports substantial use of THC. 1. ?Encourage individual, group and milieu therapy. 2. Recommend sober living treatment at the highest level of care to which the patient is willing to commit. 3. Continue q-15 minute checks for safety 4. Continue seroquel xr 300mg at 8Pm to target bipolar depression. Patient showing improvement in last two days. Involuntary Hold Information 2 96 Hour Hold: 96 Hour Involuntary Admission: No Attestations NPU 2 Medical Necessity Statement*: Inpatient hospitalization is medically necessary and the clinically appropriate intervention at this time. We will monitor medications and make changes as indicated. The patient's likely length of stay 1-3 days. Coding Level of Care Code Acute Code for g Fwd Diagnoses Bipolar disorder with depression F31.9 Panic attacks F41.0 History of OCD (obsessive compulsive disorder) Z86.59 Suicidal ideations R45.851 PTSD (post-traumatic stress disorder) F43.10
[2023-11-21 19:40] VITALS: BP 154/95; PULSE 103; RESP 20; TEMP 36.8; O2SAT 99
[2023-11-21] MEDS: docusate sodium 100 mg Capsule PO (20:09)
[2023-11-21] MEDS: quetiapine XR (24HR) 300 mg Tablet PO (20:09)
[2023-11-22 05:59] VITALS: BP 135/90; PULSE 78; RESP 18; TEMP 36.3; O2SAT 97
[2023-11-22] MEDS: nicotine 2 mg Gum BUCCAL (08:38)
[2023-11-22] MEDS: nicotine 4 mg lozenge MUCOUS MEM (10:37)
[2023-11-22 14:00] VITALS: BP 133/79; PULSE 92; RESP 20; TEMP 36.8; O2SAT 98
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
[2023-11-22 15:59] VITALS: BP 133/79; PULSE 92; RESP 20; TEMP 36.8; O2SAT 98
== END 2023-11-22 16:47 | disposition home or self-care (01) | DRG 885 ==
LOC: ER 15:04 → NP 15:08
PROVIDERS: Admitting Provider Psychiatry & Neurology Psychiatry; Emergency Provider Family Medicine; PCP Nurse Practitioner Family; Visit Provider Psychiatry & Neurology Psychiatry
DX: F31.9 Bipolar disorder, unspecified (principal); R45.851 Suicidal ideations; F41.0 Panic disorder [episodic paroxysmal anxiety]; F42.9 Obsessive-compulsive disorder, unspecified; F43.11 Post-traumatic stress disorder, acute; F17.210 Nicotine dependence, cigarettes, uncomplicated; F41.1 Generalized anxiety disorder; Z63.4 Disappearance and death of family member; Z91.51 Personal history of suicidal behavior
CPT/HCPCS: 36415; 80053; 80306; 80307; 85025; 97150; 97165; 99285

== ENCOUNTER 2023-11-28 00:01 | Emergency (ER) | payer SELFPAY ==
[2023-11-28 00:17] VITALS: BMI 29.5
[2023-11-28] MEDS: dexamethasone 10 mg/mL INJ 6 MG IM (00:32)
[2023-11-28] MEDS: ketorolac 10 mg Tablet PO (00:33)
[2023-11-28 00:43] VITALS: BP 126/92; PULSE 73; RESP 18; O2SAT 98
--- NOTE | 2023-11-28 00:44 | XRR_ITS ---
PROCEDURE INFORMATION: Exam: XR Spine; Lumbar Exam date and time: 11/28/2023 12:55 AM Age: 23 years old Clinical indication: Pain: Pain after splitting wood yesterday; Additional info: Low back pain TECHNIQUE: Imaging protocol: XR of the spine. Exam focused on the lumbar spine. Views: 1 view. 1 view. COMPARISON: No relevant prior studies available. FINDINGS: Bones/joints: Normal. No acute fracture. Normal alignment. Gastrointestinal tract: Moderate colonic stool burden. Soft tissues: Normal. XR/XR lumbar spine 1V port [id number] IMPRESSION: 1. No acute or aggressive osseous abnormality given single projection. 2. Moderate colonic stool burden.
[2023-11-28] MEDS: ondansetron 2 mg/ML SDV 2 mL 4 MG IVP (02:27)
[2023-11-28 02:28] VITALS: RESP 16
[2023-11-28] MEDS: morphine 4 mg/mL SDV 1 mL 2 MG IVP (02:28)
[2023-11-28] MEDS: midazolam 1 mg/mL INJ 2 mL IVP (02:30)
[2023-11-28 02:32] VITALS: BP 125/78; PULSE 64; RESP 14; O2SAT 97
[2023-11-28] MEDS: sodium chloride 0.9% 1,000 ML 999 ML IV (02:36)
--- NOTE | 2023-11-28 02:42 | W.ED.BACK ---
HPI - Back Pain/Injury General: Chief Complaint: Back Pain/Injury Stated Complaint: BACK PAIN Time Seen by Provider: 11/28/23 00:14 Source: patient Mode of arrival: EMS Limitations: no limitations History of Present Illness: pt reports he was splitting wood yesterday when he felt his back pull/ache. but just finished the cord of wood. then woke up this morning in severe pain when moving. only comfort is laying flat. Trying to sit up or roll over causes pain. It radiates up his back not down his legs. Review of Systems General: Reports: 10 or more systems reviewed and unremarkable except in HPI and below PFSH ED PFSH: Medical History Psychiatric care History of OCD (obsessive compulsive disorder) Depression Social History Smoking and tobacco/nicotine status: current every day tobacco/nicotine user Physical Exam Const: COMMON NORMALS: no acute distress, average body habitus, patient oriented x3, healthy appearing, alert and well nourished GENERAL APPEARANCE: well kempt and well developed HENMT: COMMON NORMALS: normocephalic, atraumatic, external ears normal and moist oral mucous membranes HEAD & SCALP: normocephalic and atraumatic EXTERNAL EAR: Yes external ears normal Eye: COMMON NORMALS: Equal, round and reactive pupils present, EOMs intact bilaterally and conjunctivae normal CONJUNCTIVA: Yes conjunctivae normal PUPIL: Yes Equal, round and reactive pupils present Neck/C-Spine: COMMON NORMALS: full ROM, no lymphadenopathy and supple Chest: CHEST: Yes Symmetrical chest wall rise and No Surgical scars present (Chest) Resp: COMMON NORMALS: normal respiratory effort, No retractions, No use of accessory muscles and clear to auscultation bilaterally AUSCULTATION: clear to auscultation bilaterally Cardio: COMMON NORMALS: regular rate, regular rhythm, S1 normal heart sound present, S2 normal heart sound present, No gallops present (Cardio), No clicks present (Cardio), No murmurs present (Cardio) and No rub (Cardio) RATE: regular rate RHYTHM: regular rhythm HEART SOUNDS: S1 normal heart sound present, S2 normal heart sound present and no murmurs PERIPHERAL PULSES: other (Radial pulses 2+ and symmetric) GI: COMMON NORMALS: Soft to palpation, non-tender and no masses INSPECTION: No abdominal distension PALPATION: Yes Soft to palpation, No Guarding due to palpation present (GI) and No Rebound tenderness present : COMMON NORMALS: Yes no CVA tenderness BLADDER/KIDNEY EXAM: Yes no CVA tenderness Back/Pelvis: COMMON NORMALS: no CVA tenderness Extremity: COMMON NORMALS: normal to inspection, full ROM, capillary refill normal and no clubbing, cyanosis or edema Neuro: COMMON NORMALS: patient oriented x3 and CN's II-XII intact bilaterally SENSORIUM/ORIENTATION: Yes alert MOTOR EXAM: 5/5 motor strength present throughout and Normal motor muscle tone present throughout OTHER: straight leg raise negative for pain bilaterally. Psych: APPEARANCE: Yes well kempt Skin: COMMON NORMALS: no rashes or lesions noted, no wounds, turgor normal and no jaundice GENERAL SKIN EXAM: no rashes or lesions noted and turgor normal Course Reevaluation(s): Reevaluation #1: no improvement Time: 01:35 Reevaluation #2: minimal to no improvement Time: 02:15 Reevaluation #3: Pain now much improved. Will discharge home. Time: 03:17 Vital Signs: Vital signs: Vital Signs Pulse Rate 64 11/28/23 02:32 Respiratory Rate 14 11/28/23 02:32 Blood Pressure 125/78 11/28/23 02:32 Pulse Oximetry 97 11/28/23 02:32 Oxygen Delivery Me thod Room Air 11/28/23 02:32 MDM - Back Pain/Injury Medical Decision Making Patient given Toradol Decadron. no improvement. Then given morphine Versed and Zofran along with a liter of fluids. Pain much improved. Will discharge home with prescription for Valium. Differential Diagnosis Likely lumbar radiculopathy, sciatica, strain of lumbar region and thoracic back pain; Unlikely renal colic, pyelonephritis, AAA or discitis Medical Records I reviewed the patient's medical records. XR interpretation done by ED provider, pending radiology final review Discharge Plan Discharge Patient Disposition: Home Clinical Impression: Strain of lumbar region Condition: Stable Prescriptions: New methocarbamol 750 mg tablet 750 mg PO TID PRN (Reason: back pain/soreness) 10 Days Qty: 30 0RF diazepam [Valium] 2 mg tablet 2 mg PO BID PRN (Reason: back pain) Qty: 4 0RF Rx Instructions: don't take if you need to drive. No Action Zyrtec 10 mg Tablet 10 mg PO DAILY acetaminophen 500 mg Tablet 1,000 mg PO Q6H PRN (Reason: Pain) ibuprofen 200 mg Tablet 400 mg PO Q6H PRN (Reason: Pain) quetiapine 300 mg Tablet Extended Release 24 Hr 300 mg PO 1999 30 Days Qty: 30 1RF Discharge Orders: Discharge ED (Routine); Ordered 11/28/23 Ordered By: Bandar Palaciso Referrals: Ludmila Goncalves FNP [Primary Care Provider] - Discharge Diet: Usual diet Discharge Activity: Resume usual activity and Limit activity as instructed Patient Instructions: Low Back Strain (ED) Activity Restrictions/Additional Instructions: No heavy lifting for 1 week. 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
== END 2023-11-28 03:32 | disposition home or self-care (01) ==
PROVIDERS: Emergency Provider Emergency Medicine; PCP Nurse Practitioner Family
DX: S39.012A Strain of muscle, fascia and tendon of lower back, initial encounter (principal); X50.3XXA Overexertion from repetitive movements, initial encounter
CPT/HCPCS: 72020; 96361; 96372; 96374; 96375; 99284; J1100; J2250; J2270; J2405; J7030

== ENCOUNTER 2023-12-21 14:10 | Emergency (ER) | payer SELFPAY ==
--- NOTE | 2023-12-21 14:16 | ED_ITS ---
HPI - Nausea/Vomiting/Diarrhea 2 General: Chief complaint: Nausea/Vomiting/Diarrhea Stated complaint: n/v Time Seen by Provider: 12/21/23 14:11 Source: patient and EMS Mode of arrival: EMS Limitations: no limitations History of Present Illness: 43-year-old male states he been have [place] vomiting over the last 2 days. He states he had multiple episodes of vomiting today not able to tolerate any p.o. States he had some abdominal cramping he has been around sick contacts states his mother had the same denies any fevers denies any worse improved factors. Associated nausea: Yes Associated symtoms: Reports nausea; Denies chest pain, dysuria or headache(s) Review of Systems 2 Const: Denies: fever(s), chills, body aches or change in appetite ENMT: Denies: throat pain or dental pain Card: Denies: chest pain Resp: Denies: dyspnea GI: Reports: nausea and vomiting; Denies: abdominal pain or diarrhea : Denies: dysuria Musc: Denies: neck pain or back pain Skin/Breast: Denies: rash Neuro: Denies: headache(s) PFSH ED 2 PFSH: Medical History Psychiatric care History of OCD (obsessive compulsive disorder) Depression Social History Smoking and tobacco/nicotine status: current every day tobacco/nicotine user Physical Exam 2 Const: COMMON NORMALS: no acute distress, patient oriented x3 and healthy appearing HENMT: COMMON NORMALS: normocephalic and atraumatic HEAD & SCALP: n ormocephalic and atraumatic Eye: COMMON NORMALS: conjunctivae normal CONJUNCTIVA: Yes conjunctivae normal Neck/C-Spine: COMMON NORMALS: full ROM and supple Chest: COMMONS NORMALS: normal inspection of the chest Resp: COMMON NORMALS: normal respiratory effort Cardio: COMMON NORMALS: regular rate, regular rhythm and No murmurs present (Cardio) RATE: regular rate RHYTHM: regular rhythm Extremity: COMMON NORMALS: normal to inspection and full ROM Neuro: COMMON NORMALS: patient oriented x3, moves all extremities and no focal motor deficits Psych: COMMON NORMALS: mental status grossly normal, Normal thought process present and cooperative THOUGHT PROCESS: Normal thought process present Skin: COMMON NORMALS: no rashes or lesions noted and no wounds GENERAL SKIN EXAM: no rashes or lesions noted Course 2 Vital Signs: Vital signs: Vital Signs Temperature 97.6 F 12/21/23 17:02 Pulse Rate 59 L 12/21/23 17:02 Respiratory Rate 16 12/21/23 17:02 Blood Pressure 128/76 12/21/23 17:02 Pulse Oximetry 100 12/21/23 17:02 Oxygen Delivery Me thod Room Air 12/21/23 16:38 MDM - Nausea/Vomiting/Diarrhea Medical Decision Making Patient presents here with nausea vomiting and diarrhea is likely viral in origin he is well-appearing here he feels much improved after nausea meds he is tolerated p.o. here. Blood works normal he stable for discharge follow-up PCP return if worsening. Medical Records I reviewed the patient's medical records. Lab Data I reviewed the patient's lab results. 12/21/23 15:14 12/21/23 15:14 Laboratory Results WBC 8.58 10^3/uL (3.29-11.43) 12/21/23 15:14 RBC 5.05 10^6/uL (3.85-5.65) 12/21/23 15:14 Hgb 15.50 g/dL (11.27-16.99) 12/21/23 15:14 Hct 46.8 % (37-53) 12/21/23 15:14 MCV 92.7 fl (82-101) 12/21/23 15:14 MCH 30.7 pg (27-33) 12/21/23 15:14 MCHC 33.1 g/dL (30-55) 12/21/23 15:14 RDW 12.1 % (12.1-15.1) 12/21/23 15:14 Plt Count 291 10^3/cmm (157-399) 12/21/23 15:14 MPV 9.0 fL (7.4-10.4) 12/21/23 15:14 Neut % (Auto) 72.6 % 12/21/23 15:14 Lymph % (Auto) 19.7 % 12/21/23 15:14 [place] % (Auto) 7.0 % 12/21/23 15:14 Eos % (Auto) 0.3 % 12/21/23 15:14 Baso % (Auto) 0.3 % 12/21/23 15:14 Neut # (Auto) 6.22 10^3/uL (1.8-7.7) 12/21/23 15:14 Lymph # (Auto) 1.7 10^3/uL (0.8-4.8) 12/21/23 15:14 [place] # (Auto) 0.6 10^3/uL (0.2-0.9) 12/21/23 15:14 Eos # (Auto) 0.0 10^3/uL (0.0-0.8) 12/21/23 15:14 Baso # (Auto) 0.0 10^3/uL (0.0-0.1) 12/21/23 15:14 Nucleated RBC % (auto) 0 % 12/21/23 15:14 Nucleated RBCs # 0.0 /100WBC 12/21/23 15:14 Sodium 140 mmol/L (136-145) 12/21/23 15:14 Potassium 3.7 mmol/L (3.5-5.1) 12/21/23 15:14 Chloride 104 mmol/L (98-107) 12/21/23 15:14 Carbon Dioxide 23 mmol/L (22-29) 12/21/23 15:14 Anion Gap 16.7 (5-19) 12/21/23 15:14 BUN 12 mg/dL (6-20) 12/21/23 15:14 Creatinine 0.8 mg/dL (0.7-1.2) 12/21/23 15:14 GFR Calculation 122.0 mL/min (90-130) 12/21/23 15:14 Glucose 93 mg/dL (65-115) 12/21/23 15:14 Calculated Osmolality 289 mOsm/kg (285-295) 12/21/23 15:14 Calcium 9.5 mg/dL (8.5-10.5) 12/21/23 15:14 Total Bilirubin 0.4 mg/dL (0.15-1.2) 12/21/23 15:14 AST 16 U/L (0-40) 12/21/23 15:14 ALT 22 U/L (0-41) 12/21/23 15:14 Alkaline Phosphatase 89 U/L (40-130) 12/21/23 15:14 Total Protein 7.5 g/dL (6.6-8.7) 12/21/23 15:14 Albumin 4.5 g/dL (3.5-5.2) 12/21/23 15:14 Globulin 3.0 g/dL (1.3-4.6) 12/21/23 15:14 Lipase 26 U/L (13-60) 12/21/23 15:14 All radiology interpretation(s) finalized by discharge Discharge Plan Discharge Patient Disposition: Home Clinical Impression: Vomiting Qualifiers: Vomiting type: unspecified Nausea presence: with nausea Qualified Code(s): R 11.2 - Nausea with vomiting, unspecified Condition: Stable Prescriptions: New ondansetron 4 mg tablet,disintegrating 4 mg PO Q6H PRN (Reason: nausea and vomiting) Qty: 14 0RF No Action fluvoxamine 50 mg tablet 50 mg PO .at bedtime Qty: 30 1RF Rx Instructions: Take one tablet daily at bedtime quetiapine 300 mg tablet extended release 24 hr 300 mg PO 1999 30 Days Qty: 30 1RF Valium 2 mg tablet 2 mg PO BID PRN (Reason: back pain) Qty: 4 0RF Rx Instructions: don't take if you need to drive. 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
[2023-12-21 14:25] VITALS: BP 136/87; PULSE 67; TEMP 36.4; O2SAT 97; BMI 31.3
[2023-12-21 14:32] VITALS: BP 134/74; PULSE 72; RESP 16; O2SAT 98
[2023-12-21] MEDS: metoclopramide 5 mg/mL SDV 2 mL 10 MG IVP (14:35)
[2023-12-21] MEDS: sodium chloride 0.9% 1,000 ML 999 ML IV ×2 (14:35→15:24)
[2023-12-21] MEDS: diphenhydrAMINE 50 mg/mL SDV 1mL IVP (14:39)
[2023-12-21 15:38] LABS: Basophils % 0.3 %; Eosinophils % 0.3 %; Hematocrit 46.8 % (37-53); Lymphocytes # 1.7 10^3/uL (0.8-4.8); Lymphocytes % 19.7 %; Mean Corpuscular HGB Conc 33.1 g/dL (30-55); Mean Corpuscular Hemoglobin 30.7 pg (27-33); Mean Corpuscular Volume 92.7 fl (82-101); Monocytes # 0.6 10^3/uL (0.2-0.9); Neutrophils # 6.22 10^3/uL (1.8-7.7); Neutrophils % 72.6 %; Nucleated Red Blood Cells % 0 %; Platelet Count 291 10^3/cmm (157-399); Red Blood Count 5.05 10^6/uL (3.85-5.65); Red Cell Distribution Width 12.1 % (12.1-15.1); White Blood Count 8.58 10^3/uL (3.29-11.43)
[2023-12-21 16:10] LABS: Alanine Aminotransferase 22 U/L (0-41); Albumin Level 4.5 g/dL (3.5-5.2); Alkaline Phosphatase 89 U/L (40-130); Anion Gap 16.7 (5-19); Aspartate Amino Transferase 16 U/L (0-40); Blood Urea Nitrogen 12 mg/dL (6-20); Calcium 9.5 mg/dL (8.5-10.5); Carbon Dioxide 23 mmol/L (22-29); Chloride 104 mmol/L (98-107); Creatinine Clr Calc Pharmacy 162.0053; Glucose 93 mg/dL (65-115); Lipase 26 U/L (13-60); Osmolality Calculated 289 mOsm/kg (285-295); Potassium 3.7 mmol/L (3.5-5.1); Sodium 140 mmol/L (136-145); Total Bilirubin 0.4 mg/dL (0.15-1.2); Total Protein 7.5 g/dL (6.6-8.7)
[2023-12-21 16:38] VITALS: PULSE 51; RESP 14; O2SAT 97
[2023-12-21 17:02] VITALS: BP 128/76; PULSE 59; RESP 16; TEMP 36.4; O2SAT 100
== END 2023-12-21 17:03 | disposition home or self-care (01) ==
PROVIDERS: Emergency Provider Emergency Medicine; PCP Nurse Practitioner Family
DX: R11.2 Nausea with vomiting, unspecified (principal); Z72.0 Tobacco use
CPT/HCPCS: 36415; 80053; 83690; 85025; 96361; 96374; 96375; 99284; J1200; J2765; J7030

== ENCOUNTER 2023-12-23 17:49 | Emergency (ER) | payer SELFPAY ==
[2023-12-23 18:15] VITALS: BP 120/77; PULSE 62; RESP 16; TEMP 36.6; O2SAT 98
[2023-12-23] MEDS: sodium chloride 0.9% 1,000 ML 999 ML IV ×2 (19:04→20:13)
[2023-12-23] MEDS: ondansetron 2 mg/ML SDV 2 mL 4 MG IVP (19:05)
[2023-12-23 19:12] LABS: Basophils % 0.3 %; Eosinophils # 0.1 10^3/uL (0.0-0.8); Eosinophils % 0.8 %; Hematocrit 46.3 % (37-53); Lymphocytes # 2.2 10^3/uL (0.8-4.8); Lymphocytes % 29.3 %; Mean Corpuscular HGB Conc 34.6 g/dL (30-55); Mean Corpuscular Hemoglobin 30.8 pg (27-33); Mean Corpuscular Volume 89.2 fl (82-101); Mean Platelet Volume 8.9 fL (7.4-10.4); Monocytes # 0.5 10^3/uL (0.2-0.9); Monocytes % 7.1 %; Neutrophils # 4.73 10^3/uL (1.8-7.7); Neutrophils % 62.2 %; Nucleated Red Blood Cells % 0 %; Platelet Count 294 10^3/cmm (157-399); Red Blood Count 5.19 10^6/uL (3.85-5.65); Red Cell Distribution Width 11.9 % (12.1-15.1)
--- NOTE | 2023-12-23 19:26 | ED_ITS ---
HPI - Nausea/Vomiting/Diarrhea 2 General: Chief complaint: Nausea/Vomiting/Diarrhea Stated complaint: headache, dehydration, n/v Time Seen by Provider: 12/23/23 18:57 History of Present Illness: Patient presents to the ER with complaints of epigastric pain nausea vomiting and unable to keep anything down for about the last 4 days. Patient did say coming here couple days ago got some fluids and medicine and felt better then but when he went home the next day it all came back and he has been just the same ever since. Patient states he does not get this way very often and has been around no known sick contacts. Review of Systems 2 General: Reports: 10 or more systems reviewed and unremarkable except in HPI and below PFSH ED 2 PFSH: Medical History Psychiatric care History of OCD (obsessive compulsive disorder) Depression Social History Smoking and tobacco/nicotine status: current every day tobacco/nicotine user Physical Exam 2 Const: COMMON NORMALS: no acute distress, average body habitus, patient oriented x3, no limitations, healthy appearing, alert and well nourished HENMT: COMMON NORMALS: normocephalic, atraumatic, hearing grossly normal bilaterally, external ears normal, Normal external nose present and moist oral mucous membranes HEAD & SCALP: normocephalic and atraumatic NOSE: Normal external nose present EXTERNAL EAR: Yes external ears normal Neck/C-Spine: COMMON NORMALS: no JVD Chest: COMMONS NORMALS: normal inspection of the chest and normal palpation of entire chest wall Resp: COMMON NORMALS: normal respiratory effort, No retractions, No use of accessory muscles and clear to auscultation bilaterally AUSCULTATION: clear to auscultation bilaterally Cardio: COMMON NORMALS: no JVD, regular rate, regular rhythm, S1 normal heart sound present, S2 normal heart sound present, No gallops present (Cardio), No clicks present (Cardio), No murmurs present (Cardio) and No rub (Cardio) R ATE: regular rate RHYTHM: regular rhythm HEART SOUNDS: S1 normal heart sound present and S2 normal heart sound present GI: COMMON NORMALS: Normal to inspection, nondistended, normoactive bowel sounds present, Soft to palpation and No hepatosplenomegaly present; negative for non-tender (Minimal tenderness to palpation over epigastric region) PALPATION: Yes Soft to palpation and Yes No hepatosplenomegaly present Neuro: COMMON NORMALS: patient oriented x3 SENSORIUM/ORIENTATION: Yes alert Course 2 Vital Signs: Vital signs: Vital Signs Temperature 97.8 F 12/23/23 18:15 Pulse Rate 65 12/23/23 20:30 Respiratory Rate 16 12/23/23 18:15 Blood Pressure 120/70 12/23/23 20:30 Pulse Oximetry 98 12/23/23 20:30 Oxygen Delivery Me thod Room Air 12/23/23 20:30 MDM - Nausea/Vomiting/Diarrhea Medical Decision Making Reviewed the ER note and labs from visit on 12/21/2023, lab work was obtained included CBC CMP lipase all of which essentially benign. Patient was given 1 L bolus normal saline and 4 mg Zofran which helped him feel better and relieve some of his nausea. Patient will be discharged on Reglan to see if this helps any better he still has Zofran at home to take as needed. Patient to follow-up with his PCP within next 7 days. Lab Data 12/23/23 19:03 12/23/23 19:03 Laboratory Results WBC 7.60 10^3/uL (3.29-11.43) 12/23/23 19:03 RBC 5.19 10^6/uL (3.85-5.65) 12/23/23 19:03 Hgb 16.00 g/dL (11.27-16.99) 12/23/23 19:03 Hct 46.3 % (37-53) 12/23/23 19:03 MCV 89.2 fl (82-101) 12/23/23 19:03 MCH 30.8 pg (27-33) 12/23/23 19:03 MCHC 34.6 g/dL (30-55) 12/23/23 19:03 RDW 11.9 % (12.1-15.1) L 12/23/23 19:03 Plt Count 294 10^3/cmm (157-399) 12/23/23 19:03 MPV 8.9 fL (7.4-10.4) 12/23/23 19:03 Neut % (Auto) 62.2 % 12/23/23 19:03 Lymph % (Auto) 29.3 % 12/23/23 19:03 [place] % (Auto) 7.1 % 12/23/23 19:03 Eos % (Auto) 0.8 % 12/23/23 19:03 Baso % (Auto) 0.3 % 12/23/23 19:03 Neut # (Auto) 4.73 10^3/uL (1.8-7.7) 12/23/23 19:03 Lymph # (Auto) 2.2 10^3/uL (0.8-4.8) 12/23/23 19:03 [place] # (Auto) 0.5 10^3/uL (0.2-0.9) 12/23/23 19:03 Eos # (Auto) 0.1 10^3/uL (0.0-0.8) 12/23/23 19:03 Baso # (Auto) 0.0 10^3/uL (0.0-0.1) 12/23/23 19:03 Nucleated RBC % (auto) 0 % 12/23/23 19:03 Nucleated RBCs # 0.0 /100WBC 12/23/23 19:03 Sodium 137 mmol/L (136-145) 12/23/23 19:03 Potassium 4.0 mmol/L (3.5-5.1) 12/23/23 19:03 Chloride 103 mmol/L (98-107) 12/23/23 19:03 Carbon Dioxide 24 mmol/L (22-29) 12/23/23 19:03 Anion Gap 14.0 (5-19) 12/23/23 19:03 BUN 10 mg/dL (6-20) 12/23/23 19:03 Creatinine 0.8 mg/dL (0.7-1.2) 12/23/23 19:03 GFR Calculation 122.0 mL/min (90-130) 12/23/23 19:03 Glucose 94 mg/dL (65-115) 12/23/23 19:03 Calculated Osmolality 283 mOsm/kg (285-295) L 12/23/23 19:03 Calcium 9.7 mg/dL (8.5-10.5) 12/23/23 19:03 Magnesium 2.3 mg/dL (1.7-2.3) 12/23/23 19:03 Total Bilirubin 0.4 mg/dL (0.15-1.2) 12/23/23 19:03 AST 17 U/L (0-40) 12/23/23 19:03 ALT 21 U/L (0-41) 12/23/23 19:03 Alkaline Phosphatase 86 U/L (40-130) 12/23/23 19:03 Total Protein 7.8 g/dL (6.6-8.7) 12/23/23 19:03 Albumin 4.9 g/dL (3.5-5.2) 12/23/23 19:03 Globulin 2.9 g/dL (1.3-4.6) 12/23/23 19:03 Lipase 21 U/L (13-60) 12/23/23 19:03 All radiology interpretation(s) finalized by discharge Discharge Plan Discharge Patient Disposition: Home Clinical Impression: Gastroenteritis Condition: Stable Prescriptions: New Reglan 10 mg tablet 10 mg PO Q6H PRN (Reason: nausea and vomiting) Qty: 10 0RF No Action fluvoxamine 50 mg tablet 50 mg PO .at bedtime Qty: 30 1RF Rx Instructions: Take one tablet daily at bedtime quetiapine 300 mg tablet extended release 24 hr 300 mg PO 1999 30 Days Qty: 30 1RF Valium 2 mg tablet 2 mg PO BID PRN (Reason: back pain) Qty: 4 0RF Rx Instructions: don't take if you need to drive. Zyrtec 10 mg Tablet 10 mg PO DAILY acetaminophen 500 mg Tablet 1,000 mg PO Q6H PRN (Reason: Pain) ibuprofen 200 mg Tablet 400 mg PO Q6H PRN (Reason: Pain) ondansetron 4 mg tablet,disintegrating 4 mg PO Q6H PRN (Reason: nausea and vomiting) Qty: 14 0RF Discharge Orders: Discharge ED (Routine); Ordered 12/23/23 Ordered By: Thomas Alicea Referrals: Ludmila Goncalves FNP [Primary Care Provider] - 1 week Patient Instructions: Acute Nausea and Vomiting (ED) Activity Restrictions/Additional Instructions: Your lab work in ER was unremarkable. You will be prescribed Reglan to take instead of the Zofran you have prescribed the other night to see if it helps your nausea and vomiting more. Please follow-up with your family practice physician within next 7 days for further evaluation and treatment as needed. 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
[2023-12-23 19:34] LABS: Alanine Aminotransferase 21 U/L (0-41); Albumin Level 4.9 g/dL (3.5-5.2); Alkaline Phosphatase 86 U/L (40-130); Aspartate Amino Transferase 17 U/L (0-40); Blood Urea Nitrogen 10 mg/dL (6-20); Calcium 9.7 mg/dL (8.5-10.5); Carbon Dioxide 24 mmol/L (22-29); Chloride 103 mmol/L (98-107); Creatinine Clr Calc Pharmacy 159.7558; Globulin 2.9 g/dL (1.3-4.6); Glucose 94 mg/dL (65-115); Lipase 21 U/L (13-60); Osmolality Calculated 283 mOsm/kg (285-295); Sodium 137 mmol/L (136-145); Total Bilirubin 0.4 mg/dL (0.15-1.2); Total Protein 7.8 g/dL (6.6-8.7)
[2023-12-23 19:53] LABS: Magnesium 2.3 mg/dL (1.7-2.3)
[2023-12-23 20:30] VITALS: BP 120/70; PULSE 65; O2SAT 98
== END 2023-12-23 21:15 | disposition home or self-care (01) ==
PROVIDERS: Emergency Medicine; Emergency Provider Emergency Medicine; PCP Nurse Practitioner Family
DX: K52.9 Noninfective gastroenteritis and colitis, unspecified (principal); Z72.0 Tobacco use
CPT/HCPCS: 80053; 83690; 83735; 85025; 96361; 96374; 99284; J2405; J7030

== ENCOUNTER 2024-02-10 09:27 | Inpatient (IN) | payer MEDICAID, SELFPAY ==
[2024-02-10] VITALS (92 sets, daily range): BP systolic 109–153; BP diastolic 64–96; PULSE 52–103; RESP 12–24; TEMP 36.2–37; O2SAT 94–99; BMI 29.5
--- NOTE | 2024-02-10 09:42 | PC.NURSE ---
pt took the medication approx. 1.5hr prior to arrival.
[2024-02-10 10:02] LABS: Basophils % 0.4 %; Eosinophils # 0.1 10^3/uL (0.0-0.8); Eosinophils % 0.9 %; Hematocrit 47.5 % (37-53); Lymphocytes # 2.8 10^3/uL (0.8-4.8); Lymphocytes % 28.6 %; Mean Corpuscular HGB Conc 33.5 g/dL (30-55); Mean Corpuscular Hemoglobin 30.2 pg (27-33); Mean Corpuscular Volume 90.1 fl (82-101); Monocytes # 0.7 10^3/uL (0.2-0.9); Monocytes % 6.9 %; Neutrophils # 6.07 10^3/uL (1.8-7.7); Nucleated Red Blood Cells % 0 %; Platelet Count 425 10^3/cmm (157-399); Red Blood Count 5.27 10^6/uL (3.85-5.65); Red Cell Distribution Width 13.1 % (12.1-15.1); White Blood Count 9.63 10^3/uL (3.29-11.43)
[2024-02-10] MEDS: sodium chloride 0.9% 1,000 ML 999 ML IV (10:16)
--- NOTE | 2024-02-10 10:21 | PC.NURSE ---
this RN contacted [facility] and spoke with CALVIN Lucio. I informed Naveed of the medication that pt took. [employer] stated that we needed to manage airway, manage symptoms, get a baseline EKG, order a CMP with [facility] as well as a tox screen. PC stated that pt could experience drowsiness, N/V, ataxia, and tachycardia. Monitoring for anticholenergic effects Peak Times are as follows: Fluoxitine- 6-8 hours Benadryl- 2-3 hours Zyprexa- 6 hours
--- NOTE | 2024-02-10 10:30 | W.ED.PSYCHS ---
HPI - Psych General: Chief Complaint: Psychiatric Symptoms Stated Complaint: MHE Time Seen by Provider: 02/10/24 09:37 History of Present Illness: 23-year-old man with a history of bipolar depression with his last admission being a couple months ago who presents emergency room after taking an overdose of pills this morning. He says that life is just too much in any did not want to live, however shortly after taking the medications he called 911. Apparently he took 20 to 3020 mg fluoxetine. Currently he is alert. Awake. No acute distress. Review of Systems Narrative: Constitutional symptoms: Negative except as documented in HPI. Skin symptoms: Negative except as documented in HPI. Eye symptoms: Negative except as documented in HPI. ENMT symptoms: Negative except as documented in HPI. Respiratory symptoms: Negative except as documented in HPI. Cardiovascular symptoms: Negative except as documented in HPI. Gastrointestinal symptoms: Negative except as documented in HPI. Genitourinary symptoms: Negative except as documented in HPI. Musculoskeletal symptoms: Negative except as documented in HPI. Neurologic symptoms: Negative except as documented in HPI. Psychiatric symptoms: Negative except as documented in HPI. Endocrine symptoms: Negative except as documented in HPI. PFSH ED PFSH: Medical History Psychiatric care History of OCD (obsessive compulsive disorder) Depression Social History Smoking and tobacco/nicotine status: current every day tobacco/nicotine user Physical Exam Narrative: EXAM NARRATIVE: General: Alert, no acute distress. Skin: Warm, dry. Head: Normocephalic, atraumatic. Neck: Supple, trachea midline. Eye: Extraocular movements are intact. Ears, nose, mouth and throat: mucosa moist. Cardiovascular: Regular, Normal peripheral perfusion. Respiratory: Lungs are clear to auscultation, respirations are non-labored, breath sounds are equal, Symmetrical chest wall expansion. Gastrointestinal: Soft, Nontender, Non distended Musculoskeletal: Normal ROM, no deformity. Neurological: Alert and oriented, No focal neurological deficit observed. Psychiatric: Cooperative, appropriate mood & affect. Course Vital Signs: Vital signs: Vital Signs Temperature 98.6 F 02/10/24 09:27 Pulse Rate 62 02/10/24 13:25 Respiratory Rate 22 H 02/10/24 13:25 Blood Pressure 142/77 02/10/24 13:25 Pulse Oximetry 95 02/10/24 13:25 MDM - Psych Medical Decision Making Differential diagnosis: Patient with reported depression and suicidal ideation and overdose. concerns for infection, alcohol intoxication, cardiac issues or other medical problems prior to psychiatric admission. Workup: labwork, ekg ordered to evaluate the pathologies and to clear the patient medically prior to psychiatric admission Consultation: Poison control was contacted. They recommend symptomatic management. Protection of the airway if needed. Basic workup as normally done with any psychiatric patient including CMP and an EKG and a tox screen. Lab Review: Laboratory results were reviewed and interpreted by myself the emergency room physician. Lab review: - Medically cleared. - EKG shows no ischemic changes. - Blood alcohol level is negative, -Tylenol and salicylate levels are negative. - Drug screen is positive for benzodiazepines and marijuana - No signs of infection, urinalysis clear and white count is not elevated - No anemia. - BUN and creatinine are within normal limits. Consultation: I spoke with Dr. Bowie who is on-call for psychiatry who agrees to admission. Reexamination: Patient has been slightly somnolent but easily arousable. He is had no changes on the EKG or on cardiac monitoring. We have watched him on a monitor for greater than 6 hours which would put him past the time for PE symptoms. No altered mental status. No focal motor deficits. No increased work of breathing. Maintaining sats on room air. Assessment and plan: Intentional drug overdose Suicidal ideation Suicide attempt -Admission to neuropsychiatric unit for continued evaluation and treatment. - All lab work was reviewed and interpreted personally by myself, the ER physician - Evaluation and treatment of this problem were appropriate in the emergency setting Lab Data 02/10/24 09:30 02/10/24 09:30 Laboratory Results WBC 9.63 10^3/uL (3.29-11.43) 02/10/24 09:30 RBC 5.27 10^6/uL (3.85-5.65) 02/10/24 09:30 Hgb 15.90 g/dL (11.27-16.99) 02/10/24 09:30 Hct 47.5 % (37-53) 02/10/24 09:30 MCV 90.1 fl (82-101) 02/10/24 09:30 MCH 30.2 pg (27-33) 02/10/24 09:30 MCHC 33.5 g/dL (30-55) 02/10/24 09:30 RDW 13.1 % (12.1-15.1) 02/10/24 09:30 Plt Count 425 10^3/cmm (157-399) H 02/10/24 09:30 MPV 9.0 fL (7.4-10.4) 02/10/24 09:30 Neut % (Auto) 63.0 % 02/10/24 09:30 Lymph % (Auto) 28.6 % 02/10/24 09:30 [place] % (Auto) 6.9 % 02/10/24 09:30 Eos % (Auto) 0.9 % 02/10/24 09:30 Baso % (Auto) 0.4 % 02/10/24 09:30 Neut # (Auto) 6.07 10^3/uL (1.8-7.7) 02/10/24 09:30 Lymph # (Auto) 2.8 10^3/uL (0.8-4.8) 02/10/24 09:30 [place] # (Auto) 0.7 10^3/uL (0.2-0.9) 02/10/24 09:30 Eos # (Auto) 0.1 10^3/uL (0.0-0.8) 02/10/24 09:30 Baso # (Auto) 0.0 10^3/uL (0.0-0.1) 02/10/24 09:30 Nucleated RBC % (auto) 0 % 02/10/24 09:30 Nucleated RBCs # 0.0 /100WBC 02/10/24 09:30 Specimen Type Arterial 02/10/24 11:20 Sample Site Radial, right 02/10/24 11:20 ABG pH 7.42 (7.35-7.45) 02/10/24 11:20 ABG pCO2 33.3 mmHg (35-45) L 02/10/24 11:20 ABG pO2 95.0 mmHg (80.0-100.0) 02/10/24 11:20 ABG PO2/FiO2 Ratio 452 02/10/24 11:20 ABG HCO3 21.6 mmol/L (22-26) L 02/10/24 11:20 ABG O2 Saturation 98.1 02/10/24 11:20 ABG Base Excess -2.0 mmol/L (-2.0-2.0) 02/10/24 11:20 Artur Test Pos 02/10/24 11:20 A-a O2 Gradient 1.6 mmHg (5-10) L 02/10/24 11:20 Hematocrit 45.9 % (42-52) 02/10/24 11:20 Hgb O2 Saturation 95.6 % (95-100) 02/10/24 11:20 Carboxyhemoglobin 2.1 %THgb (0.4-20.1) 02/10/24 11:20 Methemoglobin 0.4 % (0.4-1.5) 02/10/24 11:20 Total Hemoglobin 15.0 g/dL (14-18) 02/10/24 11:20 Sodium 138.0 mmol/L (131-143) 02/10/24 11:20 Potassium 4.4 mmol/L (3.5-5.0) 02/10/24 11:20 Glucose 83.0 mg/dL (70-115) 02/10/24 11:20 Ionized Calcium 1.2 mmol/L (1.1-1.4) 02/10/24 11:20 O2 Delivery Device Not Reportable 02/10/24 11:20 FiO2 21.0 % 02/10/24 11:20 Diesel Automotive Technician ID glc 02/10/24 11:20 Sodium 138 mmol/L (136-145) 02/10/24 09:30 Potassium 5.0 mmol/L (3.5-5.1) 02/10/24 09:30 Chloride 104 mmol/L (98-107) 02/10/24 09:30 Carbon Dioxide 15 mmol/L (22-29) L 02/10/24 09:30 Anion Gap 24.0 (5-19) H 02/10/24 09:30 BUN 12 mg/dL (6-20) 02/10/24 09:30 Creatinine 0.8 mg/dL (0.7-1.2) 02/10/24 09:30 GFR Calculation 122.0 mL/min (90-130) 02/10/24 09:30 Glucose 82 mg/dL (65-115) 02/10/24 09:30 Calculated Osmolality 285 mOsm/kg (285-295) 02/10/24 09:30 Calcium 9.5 mg/dL (8.5-10.5) 02/10/24 09:30 Magnesium 2.5 mg/dL (1.7-2.3) H 02/10/24 09:30 Total Bilirubin 0.3 mg/dL (0.15-1.2) 02/10/24 09:30 AST 23 U/L (0-40) 02/10/24 09:30 ALT 26 U/L (0-41) 02/10/24 09:30 Alkaline Phosphatase 109 U/L (40-130) 02/10/24 09:30 Total Protein 7.7 g/dL (6.6-8.7) 02/10/24 09:30 Albumin 4.8 g/dL (3.5-5.2) 02/10/24 09:30 Globulin 2.9 g/dL (1.3-4.6) 02/10/24 09:30 Urine Color Yellow (Yellow) 02/10/24 11:09 Urine Appearance Slightly cloudy (CLEAR) 02/10/24 11:09 Urine pH 5 (5-7) 02/10/24 11:09 Ur Specific [place] 1.025 (1.005-1.030) 02/10/24 11:09 Urine Protein Neg (Negative) 02/10/24 11:09 Urine Glucose (UA) Norm (Normal) 02/10/24 11:09 Urine Ketones Negative (Negative) 02/10/24 11:09 Urine Blood Neg (Negative) 02/10/24 11:09 Urine Nitrate Negative (Negative) 02/10/24 11:09 Urine Bilirubin Neg (Negative) 02/10/24 11:09 Urine Urobilinogen Norm mg/dL (Negative) 02/10/24 11:09 Ur Leukocyte Esterase Negative (Negative) 02/10/24 11:09 Urine RBC None /hpf (0-2) 02/10/24 11:09 Urine WBC Rare /hpf (0-5) 02/10/24 11:09 Ur Squamous Epith Cells Rare /hpf (0-5) 02/10/24 11:09 Amorphous Sediment 2+ /hpf 02/10/24 11:09 Urine Bacteria 1+ /hpf (NONE) H 02/10/24 11:09 Urine Mucus 1+ /hpf 02/10/24 11:09 Salicylates < 0.3 mg/dL (3-10) L 02/10/24 09:30 Urine Opiates Screen Negative ng/mL (Negative) 02/10/24 11:09 Acetaminophen < 5.0 ug/mL (10-30) L 02/10/24 09:30 Ur Barbiturates Screen Negative ng/mL (Negative) 02/10/24 11:09 Ur Phencyclidine Scrn Negative ng/mL (Negative) 02/10/24 11:09 Ur Amphetamines Screen Negative ng/mL (Negative) 02/10/24 11:09 U Benzodiazepines Scrn Positive ng/mL (Negative) H 02/10/24 11:09 Urine Cocaine Screen Negative ng/mL (Negative) 02/10/24 11:09 U Marijuana (THC) Screen Positive ng/mL (Negative) H 02/10/24 11:09 Ethyl Alcohol < 10 mg/dL (0-10) 02/10/24 09:30 No radiology studies performed this visit Discharge Plan Discharge Patient Disposition: Admitted As Inpatient Clinical Impression: Suicidal ideation, Depression, Overdose Condition: Stable Coding Level of Care Code ED Senior Technologist for Nish Stapleton
--- NOTE | 2024-02-10 10:33 | ECG_ITS ---
[facility] Test Date: 2024-02-10 Pat Name: Parth Newman Department: Room: Gender: Male [employer] Faculty Member: : 2000 Requested By: Esther Lange Order Number: [id number] Brenden MD: Yadira Alegria M.D. Measurements Intervals [place] Rate: 60 P: 14 FL: 145 QRS: 46 QRSD: 102 T: 24 QT: 390 QTc: 390 Interpretive Statements SINUS RHYTHM Compared to ECG 09/26/2023 23:35:58 Sinus arrhythmia no longer present T-wave abnormality no longer present Electronically Signed On 02-10-2024 16:20:04 CDT by Yadira Alegria M.D. [id number]
[2024-02-10 10:37] LABS: Alanine Aminotransferase 26 U/L (0-41); Albumin Level 4.8 g/dL (3.5-5.2); Alkaline Phosphatase 109 U/L (40-130); Blood Urea Nitrogen 12 mg/dL (6-20); Calcium 9.5 mg/dL (8.5-10.5); Carbon Dioxide 15 mmol/L (22-29); Chloride 104 mmol/L (98-107); Creatinine Clr Calc Pharmacy 162.6069; Globulin 2.9 g/dL (1.3-4.6); Glucose 82 mg/dL (65-115); Osmolality Calculated 285 mOsm/kg (285-295); Sodium 138 mmol/L (136-145); Total Bilirubin 0.3 mg/dL (0.15-1.2); Total Protein 7.7 g/dL (6.6-8.7)
[2024-02-10 10:45] LABS: Acetaminophen < 5.0 ug/mL (10-30); Alcohol Level < 10 mg/dL (0-10); Salicylate < 0.3 mg/dL (3-10)
[2024-02-10 10:46] LABS: Aspartate Amino Transferase 23 U/L (0-40)
[2024-02-10 11:02] LABS: Magnesium 2.5 mg/dL (1.7-2.3)
[2024-02-10 11:32] LABS: ABG PCO2 33.3 mmHg (35-45); ABG PH Result 7.42 (7.35-7.45); Alveolar-Arterial Oxygen Gradi 1.6 mmHg (5-10); Arterial Blood Gas Hematocrit 45.9 % (42-52); Blood Gas Allen Test Pos; Blood Gas Operator Identificat glc; Blood Gas Sample Site Radial, right; Blood Gas Sample Type Arterial; Carboxyhemoglobin 2.1 %THgb (0.4-20.1); HCO3 ABG 21.6 mmol/L (22-26); HGB O2 Sat 95.6 % (95-100); Ionized Calcium Level - ABG 1.2 mmol/L (1.1-1.4); Methemoglobin 0.4 % (0.4-1.5); Oxygen Saturation ABG 98.1; PO2 FiO2 Ratio Arterial Blood 452; Potassium Level - ABG 4.4 mmol/L (3.5-5.0)
[2024-02-10 11:40] LABS: Amphetamines Screen Urine Negative (Negative); Barbiturates Screen Urine Negative (Negative); Benzodiazepines Screen Urine Positive (Negative); Cocaine Screen Urine Negative (Negative); Opiate Screen Urine Negative (Negative); PCP Screen Urine Negative (Negative); THC Screen Urine Positive (Negative)
[2024-02-10 11:41] LABS: Add Urine Microscopic? YES; Bilirubin Urine Neg (Negative); Blood Urine Neg (Negative); Glucose Urine UA Norm (Normal); Ketones Urine Negative (Negative); Leukocyte Esterase Urine Negative (Negative); Nitrate Urine Negative (Negative); Protein Urine Neg (Negative); Specific Gravity, Urine 1.025 (1.005-1.030); Urine Appearance Slightly Cloudy (CLEAR); Urine Color Yellow (Yellow); Urobilinogen Urine Norm (Negative); pH Urine 5 (5-7)
[2024-02-10 11:42] LABS: Add Urine Culture? No; Amorphous Sediment Urine 2+ /hpf; Bacteria Urine 1+ /hpf; Mucus Urine 1+ /hpf; Squamous Epithelial Cell Urine RARE /hpf (0-5); WBC Urine RARE /hpf (0-5)
--- NOTE | 2024-02-10 16:50 | PC.NURSE ---
received pt from ER as NPU overflow. admitting dr is Dr. Bowie. Pt is alert, orientedx4, cooperative and calm at this moment. IV access placed by ER is removed,cath tip intact.
--- NOTE | 2024-02-10 17:51 | P.HP_ITS ---
Providers/Chief Complaint 2 Admitting Physician: Fadi Bowie MD Primary Care Provider: EDUARDO Vick Chief Complaint: MHE History of Present Illness Parth Newman is a 23 year old male with a past medical history of depression, bipolar disorder, generalized anxiety disorder, who presents to [facility] from home due to suicide attempt, intentional overdose on fluoxetine/Zyprexa/Benadryl. Currently patient is alert oriented x 4, follows all commands, currently asymptomatic, he tells me that he lives in [place], he lives with his mom, and his stepfather. 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 He does admit to using marijuana, smokes cigarettes, uses a vape, does report drinking alcohol, last drink of alcohol was over 24 hours ago, he had 3 shots of bourbon, he tells me that he was suicidal, actively suicidal, suicide attempt, intentionally took 20 or so pills of fluoxetine, 10 pills of Zyprexa, 10 pills of Zofran. When EMS was called out to his home, he felt nauseous, felt flushed, but since then he has been feeling okay, no nausea, no vomiting, no flushing sensation, no fevers, no chills, no abdominal pain, no lightheadedness, dizziness, no chest pain, no palpitations. Currently he is in [facility] awaiting a bed in neuropsychiatric unit, has a one-on-one sitter, hospitalist team was called for medical management Medications/Allergies Home Medications Medication Instructions Recorded Confirmed Last Taken Type acetaminophen 500 mg tablet 1,000 mg PO Q6H PRN Pain 11/18/23 01/02/24 Unknown History cetirizine 10 mg tablet (Zyrtec) 10 mg PO DAILY 11/18/23 01/02/24 Unknown History ibuprofen 200 mg tablet 400 mg PO Q6H PRN Pain 11/18/23 01/02/24 Unknown History diazepam 2 mg tablet (Valium) 2 mg PO BID PRN back pain #4 tabs 11/28/23 01/02/24 Unknown Rx ondansetron 4 mg disintegrating 4 mg PO Q6H PRN nausea and 12/21/23 01/02/24 Unknown Rx tablet vomiting #14 tabs metoclopramide HCl 10 mg tablet 10 mg PO Q6H PRN nausea and 12/23/23 01/02/24 Unknown Rx (Reglan) vomiting #10 tabs fluoxetine 20 mg capsule 20 mg PO .q am #30 caps 01/02/24 01/02/24 Unknown Rx olanzapine 5 mg tablet 5 mg PO .q hs #30 tabs 01/02/24 01/02/24 Unknown Rx Allergies Allergy/AdvReac Type Severity Reaction Status Date / Time No Known Allergies Allergy Verified 01/02/24 14:24 PFSH Acute 2 PFSH: Medical History Psychiatric care History of OCD (obsessive compulsive disorder) Depression Social History Smoking and tobacco/nicotine status: current every day tobacco/nicotine user Vitals/I&O/Wt Last Vital Signs Temp 97.8 F 02/10/24 17:19 Pulse 69 02/10/24 17:19 Resp 14 02/10/24 16:15 BP 153/83 02/10/24 17:19 Pulse Ox 97 02/10/24 17:19 O2 Del Method Room Air 02/10/24 17:19 02/10/24 02/10/24 02/10/24 06:59 14:59 22:59 Intake Total 1000 / 1000 Balance 1000 / 1000 Weight last 48 hrs Weight 90.718 kg Physical Exam 2 Const: COMMON NORMALS: no acute distress and patient oriented x3 HENMT: COMMON NORMALS: normocephalic HEAD & SCALP: normocephalic Neck/C-Spine: COMMON NORMALS: no JVD Resp: COMMON NORMALS: normal respiratory effort, No retractions, No use of accessory muscles and clear to auscultation bilaterally AUSCULTATION: clear to auscultation bilaterally Cardio: COMMON NORMALS: no JVD, regular rate, regular rhythm, S1 normal heart sound present and S2 normal heart sound present RATE: regular rate RHYTHM: regular rhythm HEART SOUNDS: S1 normal heart sound present and S2 normal heart sound present GI: COMMON NORMALS: Normal to inspection, nondistended, normoactive bowel sounds present, Soft to palpation and non-tender Extremity: COMMON NORMALS: no calf tenderness and no pedal edema Neuro: COMMON NORMALS: patient oriented x3, CN's II-XII intact bilaterally and moves all extremities Psych: COMMON NORMALS: mental status grossly normal Data 02/10/24 09:30 02/10/24 09:30 A&P Assessment and plan (1) Intentional drug overdose: (2) Suicide attempt by drug overdose: Plan Suicide attempt by drug overdose ? Poison control has been contacted by the ER ? Blood work does show metabolic acidosis ? Will monitor telemetry, monitor QRS intervals, QT interval -Seizure precautions, monitor for delirium, hypotension ? Monitor for serotonin syndrome ?repeat BMP in the morning, IV fluids ? Full code ? SCDs for DVT prophylaxis, ? Suicide precautions Attestations 2 Medical Necessity Statement*: Patient requires hospitalization, for suicide attempt, intentional drug overdose, Zyprexa, fluoxetine, Benadryl Diagnoses Intentional drug overdose T50.902A Suicide attempt by drug overdose T50.902A
[2024-02-10 18:16] LABS: Thyroid Stimulating Hormone 2.15 uIU/mL (0.27-4.20)
[2024-02-10] MEDS: acetaminophen 325 mg Tablet 650 MG PO (18:33)
[2024-02-10] MEDS: sodium chloride 0.9% 1,000 ML 75 ML IV (18:33)
--- NOTE | 2024-02-10 19:39 | PC.NURSE ---
Called and spoke with regarding patient with complaints of anxiety and has nothing PRN for anxiety. spoke with nurse on NPU and asked her to put in PRN orders for patient.
[2024-02-10] MEDS: hyDROXYzine 25 mg Capsule 50 MG PO (19:50)
[2024-02-10] MEDS: haloperidol inj 5 mg/mL INJ 1 mL IM (20:56)
[2024-02-10] MEDS: diphenhydrAMINE 50 mg/mL SDV 1mL IM (20:56)
[2024-02-10] MEDS: LORazepam 2 mg/mL INJ 1 mL IM (20:59)
[2024-02-11] VITALS (7 sets, daily range): BP systolic 121–131; BP diastolic 79–94; PULSE 51–79; RESP 16–21; TEMP 36.6–36.7; O2SAT 97–100; BMI 32.1
[2024-02-11 04:14] LABS: Basophils % 0.5 %; Eosinophils # 0.1 10^3/uL (0.0-0.8); Eosinophils % 0.8 %; Hematocrit 42.5 % (37-53); Lymphocytes # 2.7 10^3/uL (0.8-4.8); Lymphocytes % 34.4 %; Mean Corpuscular HGB Conc 33.4 g/dL (30-55); Mean Corpuscular Hemoglobin 30.3 pg (27-33); Mean Corpuscular Volume 90.6 fl (82-101); Mean Platelet Volume 8.6 fL (7.4-10.4); Monocytes # 0.5 10^3/uL (0.2-0.9); Monocytes % 6.8 %; Neutrophils # 4.43 10^3/uL (1.8-7.7); Neutrophils % 57.1 %; Nucleated Red Blood Cells % 0 %; Platelet Count 306 10^3/cmm (157-399); Red Blood Count 4.69 10^6/uL (3.85-5.65); Red Cell Distribution Width 12.7 % (12.1-15.1); White Blood Count 7.76 10^3/uL (3.29-11.43)
[2024-02-11 04:34] LABS: Alanine Aminotransferase 18 U/L (0-41); Alkaline Phosphatase 82 U/L (40-130); Anion Gap 17.3 (5-19); Aspartate Amino Transferase 23 U/L (0-40); Blood Urea Nitrogen 14 mg/dL (6-20); Carbon Dioxide 23 mmol/L (22-29); Chloride 105 mmol/L (98-107); Creatinine Clr Calc Pharmacy 162.6069; Globulin 2.7 g/dL (1.3-4.6); Glucose 121 mg/dL (65-115); Osmolality Calculated 294 mOsm/kg (285-295); Potassium 4.3 mmol/L (3.5-5.1); Sodium 141 mmol/L (136-145); Total Bilirubin 0.5 mg/dL (0.15-1.2); Total Protein 6.7 g/dL (6.6-8.7)
--- NOTE | 2024-02-11 07:48 | PC.NURSE ---
Shift note: Patient has 1:1 sitter for intentional OD since admission.
--- NOTE | 2024-02-11 09:16 | P.PN_ITS ---
Subjective 2 Subjective: Patient was seen this morning, he is alert oriented x 3, following all commands, denies any chest pain, no palpitations had his breakfast this morning he did have episode of agitation overnight requiring Haldol Vitals/I&O/Wt Last Vital Signs Temp 97.8 F 02/11/24 07:58 Pulse 51 L 02/11/24 07:58 Resp 16 02/11/24 07:58 BP 121/94 02/11/24 07:58 Pulse Ox 97 02/11/24 07:58 O2 Del Method Room Air 02/11/24 07:58 02/10/24 02/11/24 02/11/24 22:59 06:59 14:59 Intake Total 1480 / 1480 660 / 660 Balance 1480 / 1480 660 / 660 Weight last 48 hrs Weight 99.11 kg Weight 90.718 kg Physical Exam 2 Const: COMMON NORMALS: no acute distress and patient oriented x3 Resp: COMMON NORMALS: normal respiratory effort, No retractions, No use of accessory muscles and clear to auscultation bilaterally AUSCULTATION: clear to auscultation bilaterally Cardio: COMMON NORMALS: regular rate, regular rhythm, S1 normal heart sound present and S2 normal heart sound present RATE: regular rate RHYTHM: r egular rhythm HEART SOUNDS: S1 normal heart sound present and S2 normal heart sound present GI: COMMON NORMALS: Normal to inspection, nondistended, normoactive bowel sounds present and non-tender Extremity: COMMON NORMALS: no pedal edema Neuro: COMMON NORMALS: patient oriented x3 Psych: COMMON NORMALS: mental status grossly normal Data 02/11/24 03:57 02/11/24 03:57 A&P Assessment and plan (1) Intentional drug overdose: (2) Suicide attempt by drug overdose: Plan Suicide attempt by drug overdose ? Poison control has been contacted by the ER ? Metabolic acidosis has corrected ? Will monitor telemetry, monitor QRS intervals, QT interval -Seizure precautions, monitor for delirium, hypotension ? Monitor for serotonin syndrome ? Full code ? SCDs for DVT prophylaxis, ? Suicide precautions Will transfer to neuropsychiatric unit Attestations 2 Medical Necessity Statement*: Patient requires hospitalization for suicide attempt Diagnoses Intentional drug overdose T50.902A Suicide attempt by drug overdose T50.902A
[2024-02-11] MEDS: OLANZapine 5 mg ODT PO ×2 (12:26→16:56)
--- NOTE | 2024-02-11 15:28 | PC.NURSE ---
report given to NPU hand off report given to Yanna.
--- NOTE | 2024-02-11 15:35 | P.NPUCON_ITS ---
Providers/Reason for Consult 2 Consulting Physican/Specialty*: Ricki Carey MD/Psychiatry Reason for Consult*: overdose, depression Attending Physician: Fadi Bowie MD Primary Care Provider: EDUARDO Vick Psych Consult HPI History of Present Illness Parth Newman is a 23 year old male Meds Home Medications and Allergies Home Medications Medication Instructions Recorded Confirmed Last Taken Type acetaminophen 500 mg tablet 1,000 mg PO Q6H PRN Pain 11/18/23 01/02/24 Unknown History cetirizine 10 mg tablet (Zyrtec) 10 mg PO DAILY 11/18/23 01/02/24 Unknown History ibuprofen 200 mg tablet 400 mg PO Q6H PRN Pain 11/18/23 01/02/24 Unknown History diazepam 2 mg tablet (Valium) 2 mg PO BID PRN back pain #4 tabs 11/28/23 01/02/24 Unknown Rx ondansetron 4 mg disintegrating 4 mg PO Q6H PRN nausea and 12/21/23 01/02/24 Unknown Rx tablet vomiting #14 tabs metoclopramide HCl 10 mg tablet 10 mg PO Q6H PRN nausea and 12/23/23 01/02/24 Unknown Rx (Reglan) vomiting #10 tabs fluoxetine 20 mg capsule 20 mg PO .q am #30 caps 01/02/24 01/02/24 Unknown Rx olanzapine 5 mg tablet 5 mg PO .q hs #30 tabs 01/02/24 01/02/24 Unknown Rx Allergies Allergy/AdvReac Type Severity Reaction Status Date / Time No Known Allergies Allergy Verified 01/02/24 14:24 Current Medications Current Medications Generic Name Dose Route Start Last Admin Trade Name Freq PRN Reason Stop Dose Admin Acetaminophen 650 mg 02/10/24 17:47 02/10/24 18:33 Acetaminophen 325 Mg Tablet PO 650 mg Q6H PRN Administration Mild/Mod Pain Or Temp >/= 101 Diphenhydramine HCl 50 mg 02/10/24 19:39 02/10/24 20:56 Diphenhydramine 50 Mg/Ml Sdv 1ml IM 50 mg Q4H PRN Administration Severe Aggression Haloperidol Lactate 5 mg 02/10/24 19:39 02/10/24 20:56 Haloperidol Inj 5 Mg/Ml Inj 1 Ml IM 5 mg Q4H PRN Administration Severe Aggression Hydroxyzine Pamoate 50 mg 02/10/24 19:39 02/10/24 19:50 Hydroxyzine 25 Mg Capsule PO 50 mg Q6H PRN Administration ANXIETY Lorazepam 2 mg 02/10/24 19:39 02/10/24 20:59 Lorazepam 2 Mg/Ml Inj 1 Ml IM 2 mg Q4H PRN Administration Severe Aggression Olanzapine 5 mg 02/10/24 19:39 02/11/24 12:26 Olanzapine 5 Mg Odt PO 5 mg Q4H PRN Administration Agitation/Psychosis PFSH NPU 2 PFSH: Medical History Psychiatric care History of OCD (obsessive compulsive disorder) Depression Social History Smoking and tobacco/nicotine status: current every day tobacco/nicotine user Vitals/I&O/Wt Last Vital Signs Temp 98.0 F 02/11/24 11:47 Pulse 72 02/11/24 11:47 Resp 21 H 02/11/24 11:47 BP 127/79 02/11/24 11:47 Pulse Ox 97 02/11/24 11:47 O2 Del Method Room Air 02/11/24 11:47 02/11/24 02/11/24 02/11/24 06:59 14:59 22:59 Intake Total 1900 / 1900 Balance 1900 / 1900 Weight last 48 hrs Weight 99.11 kg Weight 90.718 kg Data NPU 02/11/24 03:57 02/11/24 03:57 Involuntary Hold Information 2 96 Hour Hold: 96 Hour Involuntary Admission: No Coding Level of Care Code Acute Code for Chg Fwd
--- NOTE | 2024-02-11 16:12 | PC.NURSE ---
ushered pt to NPU all pt's belongings sent with to npu.
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
--- NOTE | 2024-02-11 16:49 | PC.NURSE ---
CSU nurse gave report to this RN and said that Mr. Newman was reported to have taken approximately 10 tablets of zyprexa, 20 tablets of fluoxetine, and 10 tablets of benadryl in an overdose attempt to end his life. She stated that EMS said when they arrived he was vomiting and they administered zofran. She says he had mentioned that he had wanted to harm himself because he had no reason to live due to him losing his job and his sister earlier this year.
--- NOTE | 2024-02-11 16:57 | PC.NURSE ---
Patient crying in hallway, stated that he is anxious and does not want to be here. administered zyprexa 5mg ODT to patient. security talking with patient currently
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
[2024-02-11] MEDS: haloperidol 5 mg Tablet PO (17:57)
--- NOTE | 2024-02-11 17:58 | PC.NURSE ---
Patient crying in hallway. Patient asking for something for anxiety. administered haldol 5mg ODT. This nurse asked if there is anything that staff can do to help him feel better. Patient shook his head no
--- NOTE | 2024-02-12 03:43 | NUR.SHIFT ---
no reported symptoms of teeth problems reported by Pt to this RN
--- NOTE | 2024-02-12 04:32 | PC.NURSE ---
SEIZURE PRECAUTIONS ARE MAINTAINED BY ENSURING THAT PT HAS AN APPROPRIATE FALL KENDRA/SEIZURE KENDRA AT HIS BEDSIDE
[2024-02-12 06:00] VITALS: BP 134/83; PULSE 90; RESP 18; TEMP 36.8; O2SAT 99
[2024-02-12] MEDS: OLANZapine 5 mg ODT PO (06:29)
--- NOTE | 2024-02-12 06:31 | PC.NURSE ---
Pt has been pacing outside in the hallway with an intermittent scowl. RN offered Pt snacks and coffee to which he declined. Pt finally opened up to this RN and admitted to feeling very high anxiety. RN assurred Pt that he is going to be started on his home medications this morning as well as the latuda at 5pm like he expects. Pt agred to take something PRN for anxiety this morning. PO zydis given, Pt continues to pace and will continue to monitor
[2024-02-12] MEDS: benztropine 1 mg Tablet PO ×2 (06:54→17:51)
--- NOTE | 2024-02-12 06:59 | PC.NURSE ---
pt up to nurse's desk and states that his anxiety is getting worse and he thinks that he is having extra pyramidal symptoms because he feels as if he is only able to walk on the side of his right foot and he feels like his whole right leg is tensing up and won't release. Pt is shaking his right leg very fast and states tho this RN that he wants to stay seated by the nurse's station until it passes. This RN discussed Pt's care with NPU battery recharger and gave junito GOMEZ
[2024-02-12] MEDS: cetirizine 10 mg Tablet PO (08:54)
[2024-02-12] MEDS: fluoxetine 20 mg Capsule PO (08:54)
--- NOTE | 2024-02-12 10:05 | PC.NURSE ---
Patient denies avh and si/hi. He denies any issues with sleep. Patient only gave yes or no answers this morning and appears to be very depressed. He has been withdrawn to his room this morning.
[2024-02-12] MEDS: tizanidine 4 mg Tablet PO (13:43)
[2024-02-12 13:51] VITALS: BP 137/80; PULSE 103; RESP 16; O2SAT 96
--- NOTE | 2024-02-12 14:05 | PC.NURSE ---
Patient came to nurses' station with c/o pain in his feet. He stated that he was having to walk on the sides of his feet because his toes were curling and the bottom of both of them hurt. Dr. Carey was notified and he requested tizanidine prn be added to the patient's medication list. Despite reporting pain in his feet, patient continued to pace up and down the hallway after given the medication and came back to nurses' station to report that the medication didn't seem to be helping. This RN suggested to the patient that he rest his feet for a bit because walking on them while they are hurting might be irritating them further. However, patient is continuing to walk up and down the hallways.
--- NOTE | 2024-02-12 15:56 | XRR_ITS ---
PROCEDURE INFORMATION: Exam: XR Right Foot Exam date and time: 02/12/2024 4:44 PM Age: 23 years old Clinical indication: Pain; Foot; Right TECHNIQUE: Imaging protocol: Radiologic exam of the right foot. Views: 3 or more views. COMPARISON: No relevant prior studies available. FINDINGS: Bones/joints: No evidence of acute fracture or subluxation. Tarsometatarsal alignment is maintained. Soft tissues: No gross soft tissue abnormality. XR/XR foot RT min 3V* [id number] IMPRESSION: 1. No evidence of acute fracture or subluxation. If there is concern for ligamentous or tendon pathology, follow-up outpatient MRI may be helpful.
--- NOTE | 2024-02-12 16:36 | W.PM.NPUPNS ---
Subjective NPU Subjective: 23-year-old male with a history of multiple suicide attempts with a history of borderline personality disorder, and mood disorder NOS, admitted after overdose on medications. the patient had reported that he had been doing better previously on lithium and continue to report general sense of hopelessness. He reported that his family had grown tired of his inability to manage his problems. He had reported significant problems with low self-esteem and reported feeling chronically suicidal. He had reported that the olanzapine had made him excessively tired and wished to consider another medication in its place. He had continued to isolate himself on the milieu but was able to attend groups briefly today. Mental Status Exam MSE Comments: This is a well-nourished, well-developed, white male, in hospital scrubs with adequate grooming and limited contact. No abnormal movements, except for mild psychomotor agitation. He was cooperative with exam in moderate to severe distress. Speech was mostly normal rate and slightly decreased volume, and normal in production. Mood described as depressed. Affect was tearful and labile. He was tearful throughout the interview. Thought process was linear and organized. Thought content: patient denies active homicidal ideation but endorsed suicidal ideation with reports of i dont want to be here. Patient denied any auditory or visual hallucinations. There was no evidence of delusional thinking. Attention, concentration, and memory appeared intact, but none were formally tested. Alert and oriented times three. Insight was poor and judgment appear limited. Impulse control is impaired. Vitals/I&O/Wt Last Vital Signs Temp 98.2 F 02/12/24 06:00 Pulse 103 H 02/12/24 13:51 Resp 16 02/12/24 13:51 BP 137/80 02/12/24 13:51 Pulse Ox 96 02/12/24 13:51 O2 Del Method Room Air 02/12/24 13:51 Weight last 48 hrs Weight 98.883 kg Weight 99.11 kg Data NPU 02/11/24 03:57 02/11/24 03:57 A&P Assessment and plan (1) Bipolar disorder with depression: (2) Borderline personality disorder: (3) Suicidal ideations: (4) PTSD (post-traumatic stress disorder): (5) History of OCD (obsessive compulsive disorder): Plan 23-year-old white male extended history of bipolar disorder admitted with suicidal ideation and worsening depression along with multiple suicide attempts this time via overdose and a history of chronic suicidal ideation and mood dysregulation. He has a history of noncompliance with medications. 1. ?Encourage individual, group and milieu therapy. 2. Recommend sober living treatment at the highest level of care to which the patient is willing to commit. 3. Continue q-15 minute checks for safety 4. Initiate Seroquel [id number] at 7PM, and lithium 150mg bid with plan to titrate both of these medication. Involuntary Hold Information 96 Hour Hold: 96 Hour Involuntary Admission: No Attestations NPU Medical Necessity Statement*: Inpatient hospitalization is medically necessary and the clinically appropriate intervention at this time. We will monitor medications and make changes as indicated. The patient's likely length of stay 7-10 days. Coding Level of Care Code Acute Code for [facility] Fwd Diagnoses Bipolar disorder with depression F31.9 Borderline personality disorder F60.3 Suicidal ideations R45.851 PTSD (post-traumatic stress disorder) F43.10 History of OCD (obsessive compulsive disorder) Z86.59
--- NOTE | 2024-02-12 17:33 | PC.NURSE ---
PT IS TEARFUL ABOUT HIS FOOT. PT HAS BEEN INFORMED AND EDUCATED THAT HE NEEDS TO STAY OFF OF IT UNTIL IT FEELS BETTER. PHYSICIAN NOTIFIED ORDERS FOR X-RAY AND MUSCLE RELAXERS PLACED. PT IS UNWILLING TO STAY OFF FOOT AND REDIRECTION IS NEEDED FREQUENTLY.
[2024-02-12] MEDS: lithium carbonate 150 mg Capsule PO (17:49)
[2024-02-12] MEDS: quetiapine XR (24HR) 50 mg Tablet 200 MG PO (17:49)
[2024-02-12] MEDS: acetaminophen 500 mg Tablet 1000 MG PO (17:49)
[2024-02-12] MEDS: haloperidol 5 mg Tablet PO (17:49)
[2024-02-12 21:32] VITALS: BP 138/83; PULSE 87; RESP 16; TEMP 36.3; O2SAT 99
[2024-02-13 06:00] VITALS: BP 151/99; PULSE 72; RESP 14; TEMP 36.6; O2SAT 98
[2024-02-13] MEDS: OLANZapine 5 mg ODT PO ×2 (07:33→19:05)
[2024-02-13] MEDS: tizanidine 4 mg Tablet PO (08:33)
[2024-02-13] MEDS: fluoxetine 20 mg Capsule PO (08:33)
[2024-02-13] MEDS: lithium carbonate 150 mg Capsule PO ×3 (08:34→20:16)
[2024-02-13] MEDS: cetirizine 10 mg Tablet PO (08:34)
[2024-02-13] MEDS: nicotine 2 mg Gum BUCCAL (12:28)
[2024-02-13 14:00] VITALS: BP 133/89; PULSE 97; RESP 17; TEMP 36.6; O2SAT 95
--- NOTE | 2024-02-13 18:22 | P.NPUPN_ITS ---
Subjective NPU 2 Subjective: 23-year-old male with a history of multi ple suicide attempts with a history of borderline personality disorder, and mood disorder NOS, admitted after overdose on medications. The patient continued to report low self-esteem and reported that he did not want to be here. He had continued to report having thoughts of suicide. He had reported continuing to struggle with battling frequent mood swings and reported a previous improvement with mood lability with lithium. He reported no current side effects from the reinitiation of Seroquel. Patient had continued to report feelings of hopelessness. Mental Status Exam 2 MSE Comments: This is a well-nourished, well-developed, white male, in hospital scrubs with adequate grooming and limited contact. No abnormal movements, except for moderate psychomotor retardation. He was cooperative with exam in moderate to severe distress. Speech was mostly normal rate and slightly decreased volume, and normal in production. Mood described as depressed. Affect was remained restricted. He remained tearful throughout the interview. Thought process was linear and organized. Thought content: patient denies active homicidal ideation but endorsed suicidal ideation with reports of i dont want to be here. Patient denied any auditory or visual hallucinations. There was no evidence of delusional thinking. Attention, concentration, and memory appeared intact, but none were formally tested. Alert and oriented times three. Insight was poor and judgment appear limited. Impulse control is impaired. Vitals/I&O/Wt Last Vital Signs Temp 97.9 F 02/13/24 14:00 Pulse 97 02/13/24 14:00 Resp 17 02/13/24 14:00 BP 133/89 02/13/24 14:00 Pulse Ox 95 02/13/24 14:00 O2 Del Method Room Air 02/13/24 14:00 Data NPU 02/11/24 03:57 02/11/24 03:57 A&P Assessment and plan (1) Bipolar disorder with depression: (2) Borderline personality disorder: (3) Suicidal ideations: (4) PTSD (post-traumatic stress disorder): (5) History of OCD (obsessive compulsive disorder): Plan 23-year-old white male extended history of bipolar disorder admitted with suicidal ideation and worsening depression along with multiple suicide attempts this time via overdose and a history of chronic suicidal ideation and mood dysregulation. He has a history of noncompliance with medications. 1. ?Encourage individual, group and milieu therapy. 2. Recommend sober living treatment at the highest level of care to which the patient is willing to commit. 3. Continue q-15 minute checks for safety 4. Increase Seroquel [id number] at 7PM, and increase lithium 150mg in am, 300 mg at night. Involuntary Hold Information 2 96 Hour Hold: 96 Hour Involuntary Admission: No Attestations NPU 2 Medical Necessity Statement*: Inpatient hospitalization is medically necessary and the clinically appropriate intervention at this time. We will monitor medications and make changes as indicated. The patient's likely length of stay 3-4 days. Coding Level of Care Code Acute Code for [facility] Fwd Diagnoses Bipolar disorder with depression F31.9 Borderline personality disorder F60.3 Suicidal ideations R45.851 PTSD (post-traumatic stress disorder) F43.10 History of OCD (obsessive compulsive disorder) Z86.59
[2024-02-13] MEDS: hyDROXYzine 25 mg Capsule 50 MG PO (18:29)
[2024-02-13] MEDS: quetiapine XR (24HR) 50 mg Tablet 200 MG PO (20:16)
[2024-02-13] MEDS: trazodone 50 mg Tablet PO (20:16)
[2024-02-13 21:23] VITALS: BP 145/98; PULSE 65; RESP 16; TEMP 36.6; O2SAT 98
[2024-02-14 06:00] VITALS: BP 114/62; PULSE 62; RESP 14; TEMP 36.4; O2SAT 98
[2024-02-14] MEDS: lithium carbonate 150 mg Capsule PO (08:02)
[2024-02-14] MEDS: hyDROXYzine 25 mg Capsule 50 MG PO ×2 (08:02→15:53)
[2024-02-14] MEDS: cetirizine 10 mg Tablet PO (08:02)
[2024-02-14] MEDS: fluoxetine 20 mg Capsule PO (08:02)
--- NOTE | 2024-02-14 08:53 | PC.NURSE ---
PATIENT PACING THE CHAIDEZ. PATIENT COOPERATIVE AND CALM DURING ASSESSMENT. PATIENT CURRENTLY DENIES ALL, STATING THAT HE JUST WANNA GET OUT OF HERE.
[2024-02-14] MEDS: OLANZapine 5 mg ODT PO ×2 (09:34→16:33)
[2024-02-14] MEDS: haloperidol 5 mg Tablet PO (11:31)
--- NOTE | 2024-02-14 11:33 | PC.NURSE ---
Patient at window, reports anxiety 02/23. Patient says that he does not want to be here on the unit, that he is ready to go home. Patient tearful. Administered haldol 5mg PO. Will continue to monitor.
[2024-02-14] MEDS: nicotine 21 mg Patch 1 PATCH TRANSDERMA (11:36)
[2024-02-14 14:00] VITALS: BP 133/82; PULSE 87; RESP 17; TEMP 36.3; O2SAT 96
--- NOTE | 2024-02-14 15:34 | W.PM.NPUPNS ---
Subjective NPU Subjective: 23-year-old male with a history of multiple suicide attempts with a history of borderline personality disorder, and mood disorder NOS, admitted after overdose on medications. The patient continued to endorse mood dysregulation. He had reported continued worry and desire to leave here. He remained amenable to treatment with psychotherapy to manage his chronic suicidal thoughts. Continue to show evidence of poor impulse control at home as he had reported that he was very sensitive to criticism. He had continued to endorse feelings of hopelessness and worthlessness. He had reported no side effects currently from the reinitiation of lithium that he had taken many years ago to help with his mood swings. Mental Status Exam MSE Comments: This is a well-nourished, well-developed, white male, in hospital scrubs with adequate grooming and limited contact. No abnormal movements, except for moderate psychomotor retardation. He was cooperative with exam in moderate to severe distress. Speech was mostly normal rate and slightly decreased volume, and normal in production. Mood described as depressed. Affect was anxious but less labile on the unit. Thought process was linear and organized. Thought content: patient denies active homicidal ideation and denied suicidal ideation. Patient denied any auditory or visual hallucinations. There was no evidence of delusional thinking. Attention, concentration, and memory appeared intact, but none were formally tested. Alert and oriented times three. Insight was poor and judgment appear limited. Impulse control is impaired. Vitals/I&O/Wt Last Vital Signs Temp 97.3 F L 02/14/24 14:00 Pulse 87 02/14/24 14:00 Resp 17 02/14/24 14:00 BP 133/82 02/14/24 14:00 Pulse Ox 96 02/14/24 14:00 O2 Del Method Room Air 02/14/24 06:00 Data NPU 02/11/24 03:57 02/11/24 03:57 A&P Assessment and plan (1) Bipolar disorder with depression: (2) Borderline personality disorder: (3) Suicidal ideations: (4) PTSD (post-traumatic stress disorder): (5) History of OCD (obsessive compulsive disorder): Plan 23-year-old white male extended history of bipolar disorder admitted with suicidal ideation and worsening depression along with multiple suicide attempts this time via overdose and a history of chronic suicidal ideation and mood dysregulation. He has a history of noncompliance with medications. 1. ?Encourage individual, group and milieu therapy. 2. Recommend sober living treatment at the highest level of care to which the patient is willing to commit. 3. Continue q-15 minute checks for safety 4. Increase Seroquel [id number] at 7PM, and continue lithium 150mg in am, 300 mg at night. [place] level on monday am 02/16/24 Involuntary Hold Information 96 Hour Hold: 96 Hour Involuntary Admission: No Attestations NPU Medical Necessity Statement*: Inpatient hospitalization is medically necessary and the clinically appropriate intervention at this time. We will monitor medications and make changes as indicated. The patient's likely length of stay 2-3 days. Coding Level of Care Code Acute Code for [facility] Fwd Diagnoses Bipolar disorder with depression F31.9 Borderline personality disorder F60.3 Suicidal ideations R45.851 PTSD (post-traumatic stress disorder) F43.10 History of OCD (obsessive compulsive disorder) Z86.59
--- NOTE | 2024-02-14 15:51 | PC.NURSE ---
Removed abdirizak patch at 1550. this nurse disposes of it properly.
[2024-02-14] MEDS: quetiapine XR (24HR) 50 mg Tablet 250 MG PO (17:28)
[2024-02-14] MEDS: lithium carbonate 300 mg Capsule PO (20:25)
[2024-02-14] MEDS: trazodone 50 mg Tablet PO (20:25)
[2024-02-14 20:56] VITALS: BP 131/83; PULSE 77; RESP 15; TEMP 36.4; O2SAT 96
[2024-02-15 06:00] VITALS: BP 119/78; PULSE 61; RESP 14; TEMP 36.6; O2SAT 99
[2024-02-15] MEDS: cetirizine 10 mg Tablet PO (08:11)
[2024-02-15] MEDS: fluoxetine 20 mg Capsule PO (08:11)
[2024-02-15] MEDS: lithium carbonate 150 mg Capsule PO (08:12)
[2024-02-15 14:00] VITALS: BP 135/78; PULSE 70; RESP 18; TEMP 36.6; O2SAT 99
--- NOTE | 2024-02-15 15:14 | P.NPUPN_ITS ---
Subjective NPU 2 Subjective: 23-year-old male with a history of multi ple suicide attempts with a history of borderline personality disorder, and mood disorder NOS, admitted after overdose on medications. Patient reported that he was crying less on the unit. He had reported feeling bored. The patient had continued to report feeling more hopeful with his current medication regimen. He continued to report some periods of intense sadness but stated that he was not having any current thoughts of overdosing. He had been able to attend groups. He had reported having anxiety and was often critical of negative comments made to him. He had endorsed continued PTSD related symptoms although he had minimized any nightmares recently. Mental Status Exam 2 MSE Comments: This is a well-nourished, well-developed, white male, in hospital scrubs with adequate grooming and limited contact. No abnormal movements, except for moderate psychomotor retardation. He was cooperative with exam in mild distress today. Speech was mostly normal rate and slightly decreased in volume, and normal in production. Mood described as depressed. Affect was anxious but less labile on the unit. Thought process was linear and organized. Thought content: patient denies active homicidal ideation and denied suicidal ideation. Patient denied any auditory or visual hallucinations. There was no evidence of delusional thinking. Attention, concentration, and memory appeared intact, but none were formally tested. Alert and oriented times three. Insight was poor and judgment appear limited. Impulse control is limited. Vitals/I&O/Wt Last Vital Signs Temp 97.9 F 02/15/24 14:00 Pulse 70 02/15/24 14:00 Resp 18 02/15/24 14:00 BP 135/78 02/15/24 14:00 Pulse Ox 99 02/15/24 14:00 O2 Del Method Room Air 02/15/24 14:00 Data NPU 02/11/24 03:57 02/11/24 03:57 A&P Assessment and plan (1) Bipolar disorder with depression: (2) Borderline personality disorder: (3) Suicidal ideations: (4) PTSD (post-traumatic stress disorder): (5) History of OCD (obsessive compulsive disorder): Plan 23-year-old white male extended history of bipolar disorder admitted with suicidal ideation and worsening depression along with multiple suicide attempts this time via overdose and a history of chronic suicidal ideation and mood dysregulation. He has a history of noncompliance with medications. 1. ?Encourage individual, group and milieu therapy. 2. Recommend sober living treatment at the highest level of care to which the patient is willing to commit. 3. Continue q-15 minute checks for safety 4. Increase Seroquel [id number] at 7PM, and continue lithium 150mg in am, 300 mg at night. [place] level, CMP, UA on monday am 02/16/24 prior to discharge. Involuntary Hold Information 2 96 Hour Hold: 96 Hour Involuntary Admission: No Attestations NPU 2 Medical Necessity Statement*: Inpatient hospitalization is medically necessary and the clinically appropriate intervention at this time. We will monitor medications and make changes as indicated. The patient's likely length of stay 1-2 days. Coding Level of Care Code Acute Code for [facility] Diagnoses Bipolar disorder with depression F31.9 Borderline personality disorder F60.3 Suicidal ideations R45.851 PTSD (post-traumatic stress disorder) F43.10 History of OCD (obsessive compulsive disorder) Z86.59
[2024-02-15] MEDS: quetiapine XR (24HR) 50 mg Tablet 300 MG PO (17:13)
[2024-02-15 17:41] LABS: Bacteria Urine None Seen /hpf; Bilirubin Urine Negative (Negative); Blood Urine Negative (Negative); Glucose Urine UA Negative (Normal); Hyaline Casts Urine 0-4 /lpf; Ketones Urine Negative (Negative); Leukocyte Esterase Urine Negative (Negative); Nitrate Urine Negative (Negative); Protein Urine Negative (Negative); RBC Urine 0-2 /hpf (0-2); Specific Gravity, Urine 1.019 (1.005-1.030); Squamous Epithelial Cell Urine 0-5 /hpf (0-5); Urine Appearance Clear (CLEAR); Urine Color Yellow (Yellow); Urobilinogen Urine 0.2 mg/dL (Negative); WBC Urine 0-5 /hpf (0-5); pH Urine 5.5 (5-7)
[2024-02-15] MEDS: nicotine 2 mg Gum BUCCAL (19:38)
[2024-02-15] MEDS: trazodone 50 mg Tablet PO (19:39)
[2024-02-15] MEDS: lithium carbonate 300 mg Capsule PO (19:39)
[2024-02-15 22:00] VITALS: BP 127/87; PULSE 95; RESP 16; TEMP 37; O2SAT 98
[2024-02-16 06:00] VITALS: BP 130/87; PULSE 81; RESP 15; TEMP 36.6; O2SAT 97
[2024-02-16 06:23] LABS: Lithium 0.2 mmol/L (0.6-1.2)
[2024-02-16 06:28] LABS: Alanine Aminotransferase 26 U/L (0-41); Albumin Level 4.6 g/dL (3.5-5.2); Alkaline Phosphatase 83 U/L (40-130); Aspartate Amino Transferase 22 U/L (0-40); Blood Urea Nitrogen 18 mg/dL (6-20); Calcium 9.6 mg/dL (8.5-10.5); Carbon Dioxide 20 mmol/L (22-29); Chloride 103 mmol/L (98-107); Creatinine Clr Calc Pharmacy 169.3544; Globulin 3.1 g/dL (1.3-4.6); Glucose 94 mg/dL (65-115); Osmolality Calculated 286 mOsm/kg (285-295); Sodium 137 mmol/L (136-145); Thyroid Stimulating Hormone 2.09 uIU/mL (0.27-4.20); Total Bilirubin 0.4 mg/dL (0.15-1.2); Total Protein 7.7 g/dL (6.6-8.7)
[2024-02-16 06:29] LABS: Anion Gap 18.5 (5-19); Potassium 4.5 mmol/L (3.5-5.1)
--- NOTE | 2024-02-16 07:51 | PC.NURSE ---
During assessment, patient stated that he is anxious as all get out about being released from the unit. Patient denies SI, HI, AVH, and depression. Patient cooperative and calm during assessment. Patient's only question is when he will be discharged.
[2024-02-16] MEDS: fluoxetine 20 mg Capsule PO (08:02)
[2024-02-16] MEDS: lithium carbonate 150 mg Capsule PO ×2 (08:02→08:51)
[2024-02-16] MEDS: cetirizine 10 mg Tablet PO (08:02)
--- NOTE | 2024-02-16 08:39 | PC.NURSE ---
Order from Dr. Carey to increase patient's lithium from 150mg to 300mg BID d/t lithium level being 0.2
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
[2024-02-16 10:33] VITALS: BP 130/87; PULSE 81; RESP 15; TEMP 36.6; O2SAT 97
== END 2024-02-16 12:04 | disposition home or self-care (01) | DRG 918 ==
LOC: ER 13:56 → CSU 15:51 → NP 02-11 16:11
PROVIDERS: Family Medicine; Psychiatry & Neurology Psychiatry; Admitting Provider Psychiatry & Neurology Psychiatry; Emergency Provider Emergency Medicine; PCP Nurse Practitioner Family; Visit Provider Psychiatry & Neurology Psychiatry
DX: T43.592A Poisoning by other antipsychotics and neuroleptics, intentional self-harm, initial encounter (principal); R45.851 Suicidal ideations; T45.0X2A Poisoning by antiallergic and antiemetic drugs, intentional self-harm, initial encounter; T43.222A Poisoning by selective serotonin reuptake inhibitors, intentional self-harm, initial encounter; Y99.9 Unspecified external cause status; F31.9 Bipolar disorder, unspecified; F60.3 Borderline personality disorder; F43.10 Post-traumatic stress disorder, unspecified; Z91.148 Patient's other noncompliance with medication regimen for other reason; F41.1 Generalized anxiety disorder; Z91.51 Personal history of suicidal behavior; Z62.810 Personal history of physical and sexual abuse in childhood; Z72.0 Tobacco use
CPT/HCPCS: 36415; 36600; 73630; 80051; 80053; 80178; 80306; 80307; 81001; 82330; 82805; 83735; 84443; 85025; 93005; 96360; 96372; 96376; 97150; 97165; 99285; A9270; J1200; J1630; J2060; J7030

== ENCOUNTER → 2024-02-18 11:52 | Outpatient (BNVA) | payer MEDICAID, SELFPAY | PROVIDERS: PCP Nurse Practitioner Family; Visit Provider Emergency Medicine | DX: R42 Dizziness and giddiness (principal) | CPT/HCPCS: 93005 ==

== ENCOUNTER 2024-02-21 15:43 | Emergency (ER) | payer MEDICAID, SELFPAY ==
--- NOTE | 2024-02-21 15:46 | CTR_ITS ---
PROCEDURE INFORMATION: Exam: CT Head Without Contrast Exam date and time: 02/21/2024 4:08 PM Age: 23 years old Clinical indication: Other: Syncope; Additional info: Head injury TECHNIQUE: Imaging protocol: Computed tomography of the head without contrast. Radiation optimization: All CT scans at this facility use at least one of these dose optimization techniques: automated exposure control; mA and/or kV adjustment per patient size (includes targeted exams where dose is matched to clinical indication); or iterative reconstruction. COMPARISON: No relevant prior studies available. RADIATION DOSE METRICS: Total DLP (mGy-cm): 1101 FINDINGS: Brain: Normal. No hemorrhage. Unremarkable white matter. No mass effect or acute infarct. Cerebral ventricles: No ventriculomegaly. No midline shift. Paranasal sinuses: Visualized sinuses are unremarkable. No fluid levels. Mastoid air cells: Visualized mastoid air cells are well aerated. Bones: Unremarkable. No acute fracture. Soft tissues: Unremarkable. CT/CT head wo con* [id number] IMPRESSION: No acute intracranial abnormality.
[2024-02-21 15:49] VITALS: BP 141/85; PULSE 91; TEMP 36.8; O2SAT 96; BMI 30.4
--- NOTE | 2024-02-21 15:51 | ED_ITS ---
HPI - Syncope 2 General: Chief Complaint: Syncope Stated Complaint: Fall, Hit head Time Seen by Provider: 02/21/24 15:44 Source: patient and EMS Mode of arrival: EMS Limitations: no limitations History of Present Illness: 22-year-old male states that for months he has been having near syncopal events with standing he states that today just before arrival he had stood and did pass out states it hit his head he states he feels back to normal size a slight headache. States he has been seen by urgent care for this and has only had EKG done. He denies any chest pain denies any vomiting. Associated symptoms: Deny abdominal pain, chest pain, fever(s), headache(s) or nausea Review of Systems 2 Const: Denies: fever(s), chills, body aches or change in appetite ENMT: Denies: throat pain or dental pain Card: Reports: syncope; Denies: chest pain Resp: Denies: dyspnea GI: Denies: abdominal pain, nausea, vomiting or diarrhea Musc: Denies: neck pain or back pain Skin/Breast: Denies: rash Neuro: Denies: headache(s) PFSH ED 2 PFSH: Medical History Psychiatric care History of OCD (obsessive compulsive disorder) Depression Social History Smoking and tobacco/nicotine status: unknown if used tobacco/nicotine Physical Exam 2 Const: COMMON NORMALS: no acute distress, patient oriented x3 and healthy appearing HENMT: COMMON NORMALS: normocephalic and atraumatic HEAD & SCALP: n ormocephalic and atraumatic Eye: COMMON NORMALS: Equal, round and reactive pupils present and EOMs intact bilaterally PUPIL: Yes Equal, round and reactive pupils present Neck/C-Spine: COMMON NORMALS: full ROM and supple Chest: COMMONS NORMALS: normal inspection of the chest Resp: COMMON NORMALS: normal respiratory effort, No retractions, No use of accessory muscles and clear to auscultation bilaterally AUSCULTATION: clear to auscultation bilaterally Cardio: COMMON NORMALS: regular rate, regular rhythm and No murmurs present (Cardio) RATE: regular rate RHYTHM: regular rhythm GI: COMMON NORMALS: non-tender Extremity: COMMON NORMALS: normal to inspection and full ROM Neuro: COMMON NORMALS: patient oriented x3, moves all extremities and no focal motor deficits Psych: COMMON NORMALS: mental status grossly normal, Normal thought process present and cooperative THOUGHT PROCESS: Normal thought process present Skin: COMMON NORMALS: no rashes or lesions noted and no wounds GENERAL SKIN EXAM: no rashes or lesions noted Course 2 Vital Signs: Vital signs: Vital Signs Temperature 98.3 F 02/21/24 15:49 Pulse Rate 76 02/21/24 16:34 Blood Pressure 141/67 02/21/24 16:34 Pulse Oximetry 96 02/21/24 16:34 Oxygen Delivery Me thod Room Air 02/21/24 16:34 MDM - Syncope Medical Decision Making Patient presents here with syncopal event he is well-appearing here vitals are normal head CT blood work here is all normal he is stable for discharge follow- up with PCP return if worsening. Medical Records I reviewed the patient's medical records. Lab Data I reviewed the patient's lab results. 02/21/24 15:55 02/21/24 16:[address] 02/21/24 15:46 IMPRESSION: No acute intracranial abnormality. Laboratory Results WBC 7.55 10^3/uL (3.29-11.43) 02/21/24 15:55 RBC 4.92 10^6/uL (3.85-5.65) 02/21/24 15:55 Hgb 15.40 g/dL (11.27-16.99) 02/21/24 15:55 Hct 42.7 % (37-53) 02/21/24 15:55 MCV 86.8 fl (82-101) 02/21/24 15:55 MCH 31.3 pg (27-33) 02/21/24 15:55 MCHC 36.1 g/dL (30-55) 02/21/24 15:55 RDW 12.3 % (12.1-15.1) 02/21/24 15:55 Plt Count 338 10^3/cmm (157-399) 02/21/24 15:55 MPV 10.4 fL (7.4-10.4) 02/21/24 15:55 Neut % (Auto) 64.6 % 02/21/24 15:55 Lymph % (Auto) 26.1 % 02/21/24 15:55 [place] % (Auto) 6.9 % 02/21/24 15:55 Eos % (Auto) 1.7 % 02/21/24 15:55 Baso % (Auto) 0.4 % 02/21/24 15:55 Neut # (Auto) 4.88 10^3/uL (1.8-7.7) 02/21/24 15:55 Lymph # (Auto) 2.0 10^3/uL (0.8-4.8) 02/21/24 15:55 [place] # (Auto) 0.5 10^3/uL (0.2-0.9) 02/21/24 15:55 Eos # (Auto) 0.1 10^3/uL (0.0-0.8) 02/21/24 15:55 Baso # (Auto) 0.0 10^3/uL (0.0-0.1) 02/21/24 15:55 Nucleated RBC % (auto) 0 % 02/21/24 15:55 Nucleated RBCs # 0.0 /100WBC 02/21/24 15:55 Sodium 139 mmol/L (136-145) 02/21/24 16:26 Potassium 4.1 mmol/L (3.5-5.1) 02/21/24 16:26 Chloride 105 mmol/L (98-107) 02/21/24 16:26 Carbon Dioxide 20 mmol/L (22-29) L 02/21/24 16:26 Anion Gap 18.1 (5-19) 02/21/24 16:26 BUN 15 mg/dL (6-20) 02/21/24 16:26 Creatinine 1.0 mg/dL (0.7-1.2) 02/21/24 16:26 GFR Calculation 94.3 mL/min (90-130) 02/21/24 16:26 Glucose 81 mg/dL (65-115) 02/21/24 16:26 Calculated Osmolality 288 mOsm/kg (285-295) 02/21/24 16:26 Calcium 8.9 mg/dL (8.5-10.5) 02/21/24 16:26 Total Bilirubin 0.2 mg/dL (0.15-1.2) 02/21/24 16:26 AST 14 U/L (0-40) 02/21/24 16:26 ALT 20 U/L (0-41) 02/21/24 16:26 Alkaline Phosphatase 83 U/L (40-130) 02/21/24 16:26 Total Protein 7.1 g/dL (6.6-8.7) 02/21/24 16:26 Albumin 4.6 g/dL (3.5-5.2) 02/21/24 16:26 Globulin 2.5 g/dL (1.3-4.6) 02/21/24 16:26 All radiology interpretation(s) finalized by discharge EKG Data EKG 1: I personally reviewed and interpreted this EKG as follows: EKG interpretation date: 02/21/24 EKG interpretation time: 15:58 Interpretation: nsr hr [address] or t wave abnormalities qrs 99 qtc 380 Discharge Plan Discharge Patient Disposition: Home Clinical Impression: Syncope Condition: Stable Prescriptions: No Action fluoxetine 20 mg capsule 20 mg PO DAILY Rx Instructions: Take one capsule by mouth every morning quetiapine 300 mg tablet extended release 24 hr 300 mg PO 1800 30 Days Qty: 30 1RF fluoxetine 20 mg Capsule 20 mg PO DAILY 30 Days Qty: 30 1RF lithium carbonate 300 mg Capsule 300 mg PO BID 30 Days Qty: 60 1RF cetirizine [Zyrtec] 10 mg Tablet 10 mg PO DAILY acetaminophen 500 mg Tablet 1,000 mg PO Q6H PRN (Reason: Pain) ibuprofen 200 mg Tablet 400 mg PO Q6H PRN (Reason: Pain) Discharge Orders: Discharge ED (Routine); Ordered 02/21/24 Ordered By: Ubaldo Epperson Referrals: Ludmila Goncalves FNP [Primary Care Provider] - Discharge Diet: Advance as tolerated Discharge Activity: Resume usual activity Patient Instructions: Syncope (ED) Coding Level of Care Code ED Benefits Counselor for Nish Stapleton
--- NOTE | 2024-02-21 15:58 | ECG_ITS ---
[facility] Test Date: 2024-02-21 Pat Name: Parth Newman Department: Room: Gender: Male Internal Medicine Physician Assistant: : 2000 Requested By: Ubaldo Epperson Order Number: [id number] Brenden MD: Chang Russell M.D. Measurements Intervals [place] Rate: 64 P: 24 NM: 153 QRS: 39 QRSD: 99 T: 18 QT: 371 QTc: 383 Interpretive Statements SINUS RHYTHM Compared to ECG 02/10/2024 10:33:22 No significant changes Electronically Signed On 02-21-2024 16:10:54 CDT by Chang Russell M.D. [id number]
[2024-02-21 16:16] LABS: Basophils % 0.4 %; Eosinophils # 0.1 10^3/uL (0.0-0.8); Eosinophils % 1.7 %; Hematocrit 42.7 % (37-53); Lymphocytes % 26.1 %; Mean Corpuscular HGB Conc 36.1 g/dL (30-55); Mean Corpuscular Hemoglobin 31.3 pg (27-33); Mean Corpuscular Volume 86.8 fl (82-101); Mean Platelet Volume 10.4 fL (7.4-10.4); Monocytes # 0.5 10^3/uL (0.2-0.9); Monocytes % 6.9 %; Neutrophils # 4.88 10^3/uL (1.8-7.7); Neutrophils % 64.6 %; Nucleated Red Blood Cells % 0 %; Platelet Count 338 10^3/cmm (157-399); Red Blood Count 4.92 10^6/uL (3.85-5.65); Red Cell Distribution Width 12.3 % (12.1-15.1); White Blood Count 7.55 10^3/uL (3.29-11.43)
[2024-02-21] MEDS: sodium chloride 0.9% 1,000 ML 999 ML IV (16:31)
[2024-02-21 16:34] VITALS: BP 141/67; PULSE 76; O2SAT 96
[2024-02-21 17:11] LABS: Alanine Aminotransferase 20 U/L (0-41); Albumin Level 4.6 g/dL (3.5-5.2); Alkaline Phosphatase 83 U/L (40-130); Anion Gap 18.1 (5-19); Aspartate Amino Transferase 14 U/L (0-40); Blood Urea Nitrogen 15 mg/dL (6-20); Calcium 8.9 mg/dL (8.5-10.5); Carbon Dioxide 20 mmol/L (22-29); Chloride 105 mmol/L (98-107); Creatinine Clr Calc Pharmacy 131.8851; Globulin 2.5 g/dL (1.3-4.6); Glomerular Filtration Rate 94.3 mL/min (90-130); Glucose 81 mg/dL (65-115); Osmolality Calculated 288 mOsm/kg (285-295); Potassium 4.1 mmol/L (3.5-5.1); Sodium 139 mmol/L (136-145); Total Bilirubin 0.2 mg/dL (0.15-1.2); Total Protein 7.1 g/dL (6.6-8.7)
[2024-02-21 17:32] VITALS: BP 134/82; PULSE 79; O2SAT 98
[2024-02-21 18:05] VITALS: BP 136/92; PULSE 63; O2SAT 99
== END 2024-02-21 18:07 | disposition home or self-care (01) ==
PROVIDERS: Emergency Provider Emergency Medicine; PCP Nurse Practitioner Family
DX: R55 Syncope and collapse (principal)
CPT/HCPCS: 36415; 70450; 80053; 85025; 93005; 99284; J7030

== ENCOUNTER → 2024-02-26 14:52 | Outpatient (BNVA) | payer OTHER, SELFPAY | PROVIDERS: PCP Nurse Practitioner Family; Visit Provider Nurse Practitioner Psychiatric/Mental Health | DX: Z51.81 Encounter for therapeutic drug level monitoring (principal) | CPT/HCPCS: 80178 ==

== ENCOUNTER 2024-03-01 07:46 | Emergency (ER) | payer SELFPAY ==
--- NOTE | 2024-03-01 07:50 | ED.C_ITS ---
HPI - Psych 2 General: Chief Complaint: Psychiatric Symptoms Stated Complaint: mhe Time Seen by Provider: 03/01/24 07:49 Source: patient and EMS Mode of arrival: EMS Limitations: no limitations History of Present Illness: 23-year-old male is very well-known to [facility] has a history of depression bipolar PTSD and borderline personality also history of drug and alcohol abuse. Patient is currently at [facility] for rehab he has been there he states for couple days. He states been having some increased depression some passing suicidal thoughts he denies any specific plans triangulated sitting up here for an evaluation. He had multiple admissions to [facility] this year including in the last month. Associated symptoms: Reports depression and suicidal ideation Related Data Home Medications Medication Instructions Recorded Confirmed acetaminophen 500 mg tablet 1,000 mg PO Q6H PRN Pain 11/18/23 03/01/24 cetirizine 10 mg tablet (Zyrtec) 10 mg PO DAILY 11/18/23 03/01/24 ibuprofen 200 mg tablet 400 mg PO Q6H PRN Pain 11/18/23 03/01/24 olanzapine 5 mg tablet 5 mg PO BEDTIME 03/01/24 03/01/24 Previous Rx's Medication Instructions Recorded lithium carbonate 300 mg capsule 300 mg PO BID 30 days #60 caps 02/22/24 quetiapine 300 mg tablet,extended 300 mg PO 1800 30 days #30 tabs 02/22/24 release 24 hr fluoxetine 40 mg capsule (Prozac) 40 mg PO DAILY #30 caps 03/01/24 Allergies Allergy/AdvReac Type Severity Reaction Status Date / Time No Known Allergies Allergy Verified 02/21/24 16:02 Review of Systems 2 Const: Denies: fever(s), chills, body aches or change in appetite ENMT: Denies: throat pain or dental pain Card: Denies: chest pain Resp: Denies: dyspnea GI: Denies: abdominal pain, nausea, vomiting or diarrhea Musc: Denies: neck pain or back pain Skin/Breast: Denies: rash Neuro: Denies: headache(s) Psych: Reports: depression and suicidal ideation PFS ED 2 PFSH: Medical History Psychiatric care History of OCD (obsessive compulsive disorder) Depression Social History Smoking and tobacco/nicotine status: unknown if used tobacco/nicotine Physical Exam 2 Const: COMMON NORMALS: no acute distress, patient oriented x3 and healthy appearing HENMT: COMMON NORMALS: normocephalic and atraumatic HEAD & SCALP: n ormocephalic and atraumatic Eye: COMMON NORMALS: Equal, round and reactive pupils present and EOMs intact bilaterally PUPIL: Yes Equal, round and reactive pupils present Neck/C-Spine: COMMON NORMALS: full ROM and supple Chest: COMMONS NORMALS: normal inspection of the chest Resp: COMMON NORMALS: normal respiratory effort Cardio: COMMON NORMALS: regular rate, regular rhythm and No murmurs present (Cardio) RATE: regular rate RHYTHM: regular rhythm Extremity: COMMON NORMALS: normal to inspection and full ROM Neuro: COMMON NORMALS: patient oriented x3, moves all extremities and no focal motor deficits Psych: COMMON NORMALS: mental status grossly normal, Normal thought process present and cooperative THOUGHT PROCESS: Normal thought process present Skin: COMMON NORMALS: no rashes or lesions noted and no wounds GENERAL SKIN EXAM: no rashes or lesions noted Course 2 Reevaluation(s): Reevaluation #1: Patient valuated by Dr. Bowie who is planning on discharging back to [facility] he is got very upset states that he will cut his wrists will attempt to transfer at this time as we have no bed availability Time: 11:56 [facility] - Psych Medical Decision Making Patient presents here with suicidal ideations he is medically cleared will transfer to psychiatric facility [facility] in [facility] as we have no bed availability here. Medical Records I reviewed the patient's medical records. Lab Data I reviewed the patient's lab results. 03/01/24 08:05 03/01/24 08:05 Laboratory Results WBC 6.05 10^3/uL (3.29-11.43) 03/01/24 08:05 RBC 4.71 10^6/uL (3.85-5.65) 03/01/24 08:05 Hgb 14.40 g/dL (11.27-16.99) 03/01/24 08:05 Hct 43.6 % (37-53) 03/01/24 08:05 MCV 92.6 fl (82-101) 03/01/24 08:05 MCH 30.6 pg (27-33) 03/01/24 08:05 MCHC 33.0 g/dL (30-55) 03/01/24 08:05 RDW 13.0 % (12.1-15.1) 03/01/24 08:05 Plt Count 292 10^3/cmm (157-399) 03/01/24 08:05 MPV 8.6 fL (7.4-10.4) 03/01/24 08:05 Neut % (Auto) 64.6 % 03/01/24 08:05 Lymph % (Auto) 26.8 % 03/01/24 08:05 [place] % (Auto) 6.1 % 03/01/24 08:05 Eos % (Auto) 1.8 % 03/01/24 08:05 Baso % (Auto) 0.5 % 03/01/24 08:05 Neut # (Auto) 3.91 10^3/uL (1.8-7.7) 03/01/24 08:05 Lymph # (Auto) 1.6 10^3/uL (0.8-4.8) 03/01/24 08:05 [place] # (Auto) 0.4 10^3/uL (0.2-0.9) 03/01/24 08:05 Eos # (Auto) 0.1 10^3/uL (0.0-0.8) 03/01/24 08:05 Baso # (Auto) 0.0 10^3/uL (0.0-0.1) 03/01/24 08:05 Nucleated RBC % (auto) 0 % 03/01/24 08:05 Nucleated RBCs # 0.0 /100WBC 03/01/24 08:05 Sodium 141 mmol/L (136-145) 03/01/24 08:05 Potassium 4.5 mmol/L (3.5-5.1) 03/01/24 08:05 Chloride 108 mmol/L (98-107) H 03/01/24 08:05 Carbon Dioxide 21 mmol/L (22-29) L 03/01/24 08:05 Anion Gap 16.5 (5-19) 03/01/24 08:05 BUN 16 mg/dL (6-20) 03/01/24 08:05 Creatinine 0.9 mg/dL (0.7-1.2) 03/01/24 08:05 GFR Calculation 106.5 mL/min (90-130) 03/01/24 08:05 Glucose 82 mg/dL (65-115) 03/01/24 08:05 Calculated Osmolality 292 mOsm/kg (285-295) 03/01/24 08:05 Calcium 8.9 mg/dL (8.5-10.5) 03/01/24 08:05 Total Bilirubin 0.2 mg/dL (0.15-1.2) 03/01/24 08:05 AST 18 U/L (0-40) 03/01/24 08:05 ALT 29 U/L (0-41) 03/01/24 08:05 Alkaline Phosphatase 76 U/L (40-130) 03/01/24 08:05 Total Protein 6.9 g/dL (6.6-8.7) 03/01/24 08:05 Albumin 4.3 g/dL (3.5-5.2) 03/01/24 08:05 Globulin 2.6 g/dL (1.3-4.6) 03/01/24 08:05 Urine Color Yellow (Yellow) 03/01/24 13:14 Urine Appearance Clear (CLEAR) 03/01/24 13:14 Urine pH 7.0 (5-7) 03/01/24 13:14 Ur Specific [place] 1.012 (1.005-1.030) 03/01/24 13:14 Urine Protein Negative (Negative) 03/01/24 13:14 Urine Glucose (UA) Negative (Normal) 03/01/24 13:14 Urine Ketones Negative (Negative) 03/01/24 13:14 Urine Blood Negative (Negative) 03/01/24 13:14 Urine Nitrate Negative (Negative) 03/01/24 13:14 Urine Bilirubin Negative (Negative) 03/01/24 13:14 Urine Urobilinogen 1.0 mg/dL (Negative) 03/01/24 13:14 Ur Leukocyte Esterase Negative (Negative) 03/01/24 13:14 Urine RBC 0-2 /hpf (0-2) 03/01/24 13:14 Urine WBC 0-5 /hpf (0-5) 03/01/24 13:14 Ur Squamous Epith Cells 0-5 /hpf (0-5) 03/01/24 13:14 Amorphous Sediment Not Reportable 03/01/24 13:14 Urine Bacteria None seen /hpf (NONE) 03/01/24 13:14 Hyaline Casts 0-4 /lpf H 03/01/24 13:14 Salicylates < 0.3 mg/dL (3-10) L 03/01/24 08:05 Urine Opiates Screen Negative ng/mL (Negative) 03/01/24 13:14 Acetaminophen < 5.0 ug/mL (10-30) L 03/01/24 08:05 Ur Barbiturates Screen Negative ng/mL (Negative) 03/01/24 13:14 Ur Phencyclidine Scrn Negative ng/mL (Negative) 03/01/24 13:14 Ur Amphetamines Screen Negative ng/mL (Negative) 03/01/24 13:14 U Benzodiazepines Scrn Negative ng/mL (Negative) 03/01/24 13:14 [place] 0.5 mmol/L (0.6-1.2) L 03/01/24 08:05 Urine Cocaine Screen Negative ng/mL (Negative) 03/01/24 13:14 U Marijuana (THC) Screen Negative ng/mL (Negative) 03/01/24 13:14 Ethyl Alcohol < 10 mg/dL (0-10) 03/01/24 08:05 Influenza Type A Ag negative (Negative) 03/01/24 12:33 Influenza Type B Ag negative (Negative) 03/01/24 12:33 RSV Antigen Negative (Negative) 03/01/24 12:33 SARS-CoV-2 Ag (Rapid) negative (Negative) 03/01/24 12:33 No radiology studies performed this visit EKG Data EKG 1: I personally reviewed and interpreted this EKG as follows: EKG interpretation date: 03/01/24 EKG interpretation time: 08:01 Interpretation: nsr hr [address] or t wave abnormalities qrs 102 qtc 385 Discharge Plan Discharge Patient Disposition: Xfer Psychiatric Hosp Clinical Impression: Suicidal ideation Prescriptions: New Prozac 40 mg capsule 40 mg PO DAILY Qty: 30 0RF Discontinued fluoxetine 20 mg capsule 20 mg PO DAILY 30 Days Qty: 30 1RF No Action lithium carbonate 300 mg capsule 300 mg PO BID 30 Days Qty: 60 1RF quetiapine 300 mg tablet extended release 24 hr 300 mg PO 1800 30 Days Qty: 30 1RF cetirizine [Zyrtec] 10 mg Tablet 10 mg PO DAILY acetaminophen 500 mg Tablet 1,000 mg PO Q6H PRN (Reason: Pain) ibuprofen 200 mg Tablet 400 mg PO Q6H PRN (Reason: Pain) olanzapine 5 mg tablet 5 mg PO BEDTIME Referrals: Ludmila Goncalves, STATEMENT CLERK [Primary Care Provider] - Coding Level of Care Code ED Salon Receptionist for Nish Stapleton
--- NOTE | 2024-03-01 08:01 | ECG_ITS ---
[facility] Test Date: 2024-03-01 Pat Name: Parth Newman Department: Room: Gender: Male Tug Captain: : 2000 Requested By: Ubaldo Epperson Order Number: [id number] Brenden MD: Chang Russell M.D. Measurements Intervals [place] Rate: 75 P: -12 NV: 155 QRS: 15 QRSD: 102 T: -20 QT: 357 QTc: 399 Interpretive Statements SINUS RHYTHM NONSPECIFIC T-WAVE ABNORMALITY Compared to ECG 02/21/2024 15:58:49 T-wave abnormality now present Electronically Signed On 03-01-2024 13:31:50 CDT by Chang Russell M.D. [id number]
[2024-03-01 08:13] LABS: Basophils % 0.5 %; Eosinophils # 0.1 10^3/uL (0.0-0.8); Eosinophils % 1.8 %; Hematocrit 43.6 % (37-53); Lymphocytes # 1.6 10^3/uL (0.8-4.8); Lymphocytes % 26.8 %; Mean Corpuscular Hemoglobin 30.6 pg (27-33); Mean Corpuscular Volume 92.6 fl (82-101); Mean Platelet Volume 8.6 fL (7.4-10.4); Monocytes # 0.4 10^3/uL (0.2-0.9); Monocytes % 6.1 %; Neutrophils # 3.91 10^3/uL (1.8-7.7); Neutrophils % 64.6 %; Nucleated Red Blood Cells % 0 %; Platelet Count 292 10^3/cmm (157-399); Red Blood Count 4.71 10^6/uL (3.85-5.65); White Blood Count 6.05 10^3/uL (3.29-11.43)
[2024-03-01 08:31] LABS: Acetaminophen < 5.0 ug/mL (10-30); Alanine Aminotransferase 29 U/L (0-41); Albumin Level 4.3 g/dL (3.5-5.2); Alcohol Level < 10 mg/dL (0-10); Alkaline Phosphatase 76 U/L (40-130); Anion Gap 16.5 (5-19); Aspartate Amino Transferase 18 U/L (0-40); Blood Urea Nitrogen 16 mg/dL (6-20); Calcium 8.9 mg/dL (8.5-10.5); Carbon Dioxide 21 mmol/L (22-29); Chloride 108 mmol/L (98-107); Globulin 2.6 g/dL (1.3-4.6); Glomerular Filtration Rate 106.5 mL/min (90-130); Glucose 82 mg/dL (65-115); Osmolality Calculated 292 mOsm/kg (285-295); Potassium 4.5 mmol/L (3.5-5.1); Salicylate < 0.3 mg/dL (3-10); Sodium 141 mmol/L (136-145); Total Bilirubin 0.2 mg/dL (0.15-1.2); Total Protein 6.9 g/dL (6.6-8.7)
[2024-03-01 08:37] LABS: Lithium 0.5 mmol/L (0.6-1.2)
[2024-03-01] MEDS: fluoxetine 20 mg Capsule PO (12:11)
[2024-03-01 12:55] LABS: Influenza A by IFA negative (Negative); Influenza B by IFA negative (Negative)
[2024-03-01 12:56] LABS: SARS Covid-2 Antigen negative (Negative)
[2024-03-01 13:02] LABS: RSV Transfer Patient (ED) Negative (Negative)
[2024-03-01 13:19] LABS: Bilirubin Urine Negative (Negative); Blood Urine Negative (Negative); Glucose Urine UA Negative (Normal); Ketones Urine Negative (Negative); Leukocyte Esterase Urine Negative (Negative); Nitrate Urine Negative (Negative); Protein Urine Negative (Negative); Specific Gravity, Urine 1.012 (1.005-1.030); Urine Appearance Clear (CLEAR); Urine Color Yellow (Yellow)
[2024-03-01 13:24] LABS: Bacteria Urine None Seen /hpf; Hyaline Casts Urine 0-4 /lpf; RBC Urine 0-2 /hpf (0-2); Squamous Epithelial Cell Urine 0-5 /hpf (0-5); WBC Urine 0-5 /hpf (0-5)
[2024-03-01 13:28] LABS: Amphetamines Screen Urine Negative (Negative); Barbiturates Screen Urine Negative (Negative); Benzodiazepines Screen Urine Negative (Negative); Cocaine Screen Urine Negative (Negative); Opiate Screen Urine Negative (Negative); PCP Screen Urine Negative (Negative); THC Screen Urine Negative (Negative)
== END 2024-03-01 17:17 ==
PROVIDERS: Emergency Provider Emergency Medicine; PCP Nurse Practitioner Family
DX: R45.851 Suicidal ideations (principal); Z11.52 Encounter for screening for COVID-19
CPT/HCPCS: 36415; 80053; 80178; 80306; 80307; 81001; 85025; 87426; 87804; 87899; 93005; 99285

== ENCOUNTER 2024-05-30 22:05 | Emergency (ER) | payer MEDICAID, SELFPAY ==
[2024-05-30] VITALS (15 sets, daily range): BP systolic 116–138; BP diastolic 71–84; PULSE 55–74; RESP 16–20; TEMP 36.8; O2SAT 97–100; BMI 32.5
--- NOTE | 2024-05-30 22:34 | ED_ITS ---
HPI - Nausea/Vomiting/Diarrhea 2 General: Chief complaint: Nausea/Vomiting/Diarrhea Stated complaint: NVD Time Seen by Provider: 05/30/24 22:13 History of Present Illness: 23-year-old male who presents emergency room with nausea and vomiting. He says he has been feeling bad all week but became much worse tonight and he has not been able keeping things down. He is having some diffuse burning in his upper abdomen. No diarrhea. No dysuria. No chest pain. No fevers. Related Data Home Medications Medication Instructions Recorded Confirmed acetaminophen 500 mg tablet 1,000 mg PO Q6H PRN Pain 11/18/23 05/07/24 ibuprofen 200 mg tablet 400 mg PO Q6H PRN Pain 11/18/23 05/07/24 cetirizine 10 mg tablet (Zyrtec) 10 mg PO DAILY PRN 03/21/24 05/07/24 Previous Rx's Medication Instructions Recorded buspirone 15 mg tablet 15 mg PO TID 30 days #90 tabs 05/07/24 lithium carbonate 300 mg capsule 300 mg PO BID 30 days #60 caps 05/07/24 quetiapine 400 mg tablet 400 mg PO .q hs 30 days #30 tabs 05/07/24 venlafaxine 150 mg 150 mg PO QAM #30 caps 05/07/24 capsule,extended release 24 hr ondansetron 8 mg disintegrating 8 mg PO Q6H #14 tabs 05/31/24 tablet promethazine 25 mg rectal 25 mg TN Q6H PRN nausea and 05/31/24 suppository vomiting #12 ea Allergies Allergy/AdvReac Type Severity Reaction Status Date / Time No Known Allergies Allergy Verified 05/30/24 22:11 Review of Systems 2 Narrative: Constitutional symptoms: Negative except as documented in HPI. Skin symptoms: Negative except as documented in HPI. Eye symptoms: Negative except as documented in HPI. ENMT symptoms: Negative except as documented in HPI. Respiratory symptoms: Negative except as documented in HPI. Cardiovascular symptoms: Negative except as documented in HPI. Gastrointestinal symptoms: Negative except as documented in HPI. Genitourinary symptoms: Negative except as documented in HPI. Musculoskeletal symptoms: Negative except as documented in HPI. Neurologic symptoms: Negative except as documented in HPI. Psychiatric symptoms: Negative except as documented in HPI. Endocrine symptoms: Negative except as documented in HPI. PFSH ED 2 PFSH: Medical History Psychiatric care History of OCD (obsessive compulsive disorder) Depression Social History Smoking and tobacco/nicotine status: unknown if used tobacco/nicotine Physical Exam 2 Narrative: EXAM NARRATIVE: General: Alert, no acute distress. Skin: Warm, dry. Head: Normocephalic, atraumatic. Neck: Supple, trachea midline. Eye: Extraocular movements are intact. Ears, nose, mouth and throat: mucosa moist. Cardiovascular: Regular, Normal peripheral perfusion. Respiratory: Lungs are clear to auscultation, respirations are non-labored, breath sounds are equal, Symmetrical chest wall expansion. Gastrointestinal: Soft, mild upper abdominal tenderness, Non distended Musculoskeletal: Normal ROM, no deformity. Neurological: Alert and oriented, No focal neurological deficit observed. Psychiatric: Cooperative, appropriate mood & affect. Course 2 Vital Signs: Vital signs: Vital Signs Temperature 98.2 F 05/30/24 22:06 Pulse Rate 60 05/30/24 23:24 Respiratory Rate 20 H 05/30/24 23:24 Blood Pressure 123/66 05/31/24 01:15 Pulse Oximetry 98 05/31/24 01:15 Oxygen Delivery Me thod Room Air 05/30/24 22:24 MDM - Nausea/Vomiting/Diarrhea Medical Decision Making Medical decision making: Differential diagnosis for this patient with nausea and vomiting including but not limited to and based on the above HPI, review of systems and physical exam: Urinary tract infection. Appendicitis. Cholecystis. colitis. small bowel obstruction. crohn's flare. pancreatitis. gastritis. peptic ulcer. cyclic vomiting. Viral illness. Influenza. COVID. - Workup - labwork and imaging ordered to evaluate, rule in and rule out above pathologies. Lab Review: Laboratory results were reviewed and interpreted by myself the emergency room physician. Lab work is unremarkable. No leukocytosis. No anemia. No renal failure. CT of the abdomen pelvis: No acute process. This was reviewed and interpreted by myself the emergency room physician. I also reviewed the radiology report. I reviewed the patient's medical record. Reexamination: Patient says he feels quite a bit better. He is tolerated 2 cans of Sprite. Patient remained stable. No increased work of breathing. No altered mental status. No focal motor deficits. Assessment and plan: Nausea and vomiting ?IV Zofran in the emergency room with improvement - Discharged home - Discussed findings and plan with patient. Answered any questions. - All laboratory values were reviewed and interpreted personally by myself, the ER physician - All imaging was reviewed and interpreted personally by myself, the ER physician. - Evaluation and treatment of this problem were appropriate in the emergency setting Lab Data 05/30/24 23:15 05/30/24 23:15 Radiology Impressions Abdomen/Pelvis CT 05/31/24 00:26 IMPRESSION: No acute intra-abdominal findings. COMMENTS: Consistent with the [employer]'s Incidental Findings Committee white paper (J Am Ana Rosa Radiol 2018): Any incidental renal lesion less than 1 cm or classified as too small to characterize, or any incidental cystic renal lesion characterized as simple-appearing, is likely benign. No follow-up imaging is recommended for these lesions per consensus recommendations based on imaging criteria. Laboratory Results WBC 10.10 10^3/uL (3.29-11.43) 05/30/24 23:15 RBC 4.91 10^6/uL (3.85-5.65) 05/30/24 23:15 Hgb 14.90 g/dL (11.27-16.99) 05/30/24 23:15 Hct 44.5 % (37-53) 05/30/24 23:15 MCV 90.6 fl (82-101) 05/30/24 23:15 MCH 30.3 pg (27-33) 05/30/24 23:15 MCHC 33.5 g/dL (30-55) 05/30/24 23:15 RDW 12.1 % (12.1-15.1) 05/30/24 23:15 Plt Count 305 10^3/cmm (157-399) 05/30/24 23:15 MPV 8.9 fL (7.4-10.4) 05/30/24 23:15 Neut % (Auto) 65.8 % 05/30/24 23:15 Lymph % (Auto) 27.1 % 05/30/24 23:15 [place] % (Auto) 6.0 % 05/30/24 23:15 Eos % (Auto) 0.6 % 05/30/24 23:15 Baso % (Auto) 0.3 % 05/30/24 23:15 Neut # (Auto) 6.64 10^3/uL (1.8-7.7) 05/30/24 23:15 Lymph # (Auto) 2.7 10^3/uL (0.8-4.8) 05/30/24 23:15 [place] # (Auto) 0.6 10^3/uL (0.2-0.9) 05/30/24 23:15 Eos # (Auto) 0.1 10^3/uL (0.0-0.8) 05/30/24 23:15 Baso # (Auto) 0.0 10^3/uL (0.0-0.1) 05/30/24 23:15 Nucleated RBC % (auto) 0 % 05/30/24 23:15 Nucleated RBCs # 0.0 /100WBC 05/30/24 23:15 Sodium 139 mmol/L (136-145) 05/30/24 23:15 Potassium 4.1 mmol/L (3.5-5.1) 05/30/24 23:15 Chloride 102 mmol/L (98-107) 05/30/24 23:15 Carbon Dioxide 27 mmol/L (22-29) 05/30/24 23:15 Anion Gap 14.1 (5-19) 05/30/24 23:15 BUN 6 mg/dL (6-20) 05/30/24 23:15 Creatinine 0.8 mg/dL (0.7-1.2) 05/30/24 23:15 GFR Calculation 122.0 mL/min (90-130) 05/30/24 23:15 Glucose 100 mg/dL (65-115) 05/30/24 23:15 Calculated Osmolality 286 mOsm/kg (285-295) 05/30/24 23:15 Calcium 9.0 mg/dL (8.5-10.5) 05/30/24 23:15 Total Bilirubin 0.3 mg/dL (0.15-1.2) 05/30/24 23:15 AST 19 U/L (0-40) 05/30/24 23:15 ALT 15 U/L (0-41) 05/30/24 23:15 Alkaline Phosphatase 80 U/L (40-130) 05/30/24 23:15 Total Protein 7.3 g/dL (6.6-8.7) 05/30/24 23:15 Albumin 4.8 g/dL (3.5-5.2) 05/30/24 23:15 Globulin 2.5 g/dL (1.3-4.6) 05/30/24 23:15 Lipase 21 U/L (13-60) 05/30/24 23:15 All radiology interpretation(s) finalized by discharge Discharge Plan Discharge Patient Disposition: Home Clinical Impression: Nausea & vomiting Condition: Stable Prescriptions: New promethazine 25 mg suppository 25 mg TN Q6H PRN (Reason: nausea and vomiting) Qty: 12 0RF ondansetron 8 mg tablet,disintegrating 8 mg PO Q6H Qty: 14 0RF Rx Instructions: Take 1/2-1 tab every 6 hours as needed for nausea and vomiting No Action venlafaxine 150 mg capsule,extended release 24hr 150 mg PO QAM Qty: 30 1RF Rx Instructions: Take one capsule by mouth every morning; stop 75 mg dose buspirone 15 mg tablet 15 mg PO TID 30 Days Qty: 90 1RF Rx Instructions: Take one tablet by mouth three times daily at least 6 hours apart lithium carbonate 300 mg capsule 300 mg PO BID 30 Days Qty: 60 1RF Rx Instructions: Take one capsule by mouth twice a day-morning and evening quetiapine 400 mg tablet 400 mg PO .q hs 30 Days Qty: 30 1RF Rx Instructions: Take one tablet daily before bedtime acetaminophen 500 mg Tablet 1,000 mg PO Q6H PRN (Reason: Pain) ibuprofen 200 mg Tablet 400 mg PO Q6H PRN (Reason: Pain) cetirizine [Zyrtec] 10 mg tablet 10 mg PO DAILY PRN Discharge Orders: Discharge ED (Routine); Ordered 05/31/24 Ordered By: Esther Handy Referrals: Ludmila Goncalves FNP [Primary Care Provider] - Discharge Diet: Advance as tolerated Patient Instructions: Gastroenteritis (ED), Acute Nausea and Vomiting (ED), Opioid Safety, Pain Management Activity Restrictions/Additional Instructions: Thank you for choosing [facility] for your healthcare needs today. Please realize this is an emergency room and that we are providing you with a medical screening exam and this may not be complete and all inclusive of all the testing and or work up that you may need to determine your ailment or severity of your illness. You have been screened and evaluated and felt safe for discharge. Health conditions do change or evolve sometimes and as such it is important that you follow up with your Primary Doctor to be re checked, 3-5 days is a general good time frame for follow up. 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
[2024-05-30] MEDS: ondansetron 2 mg/ML SDV 2 mL 8 MG IVP (23:31)
[2024-05-30 23:33] LABS: Basophils % 0.3 %; Eosinophils # 0.1 10^3/uL (0.0-0.8); Eosinophils % 0.6 %; Hematocrit 44.5 % (37-53); Lymphocytes # 2.7 10^3/uL (0.8-4.8); Lymphocytes % 27.1 %; Mean Corpuscular HGB Conc 33.5 g/dL (30-55); Mean Corpuscular Hemoglobin 30.3 pg (27-33); Mean Corpuscular Volume 90.6 fl (82-101); Mean Platelet Volume 8.9 fL (7.4-10.4); Monocytes # 0.6 10^3/uL (0.2-0.9); Neutrophils # 6.64 10^3/uL (1.8-7.7); Neutrophils % 65.8 %; Nucleated Red Blood Cells % 0 %; Platelet Count 305 10^3/cmm (157-399); Red Blood Count 4.91 10^6/uL (3.85-5.65); Red Cell Distribution Width 12.1 % (12.1-15.1)
[2024-05-30 23:50] LABS: Alanine Aminotransferase 15 U/L (0-41); Albumin Level 4.8 g/dL (3.5-5.2); Alkaline Phosphatase 80 U/L (40-130); Anion Gap 14.1 (5-19); Aspartate Amino Transferase 19 U/L (0-40); Blood Urea Nitrogen 6 mg/dL (6-20); Carbon Dioxide 27 mmol/L (22-29); Chloride 102 mmol/L (98-107); Creatinine Clr Calc Pharmacy 170.1039; Globulin 2.5 g/dL (1.3-4.6); Glucose 100 mg/dL (65-115); Lipase 21 U/L (13-60); Osmolality Calculated 286 mOsm/kg (285-295); Potassium 4.1 mmol/L (3.5-5.1); Sodium 139 mmol/L (136-145); Total Bilirubin 0.3 mg/dL (0.15-1.2); Total Protein 7.3 g/dL (6.6-8.7)
[2024-05-31] VITALS (12 sets, daily range): BP systolic 102–132; BP diastolic 66–84; PULSE 61–79; RESP 18; O2SAT 96–100
--- NOTE | 2024-05-31 00:26 | CTR_ITS ---
PROCEDURE INFORMATION: Exam: CT Abdomen And Pelvis With Contrast Exam date and time: 05/31/2024 12:26 AM Age: 23 years old Clinical indication: Nausea and vomiting; Additional info: Abdominal pain TECHNIQUE: Imaging protocol: Computed tomography of the abdomen and pelvis with contrast. Radiation optimization: All CT scans at this facility use at least one of these dose optimization techniques: automated exposure control; mA and/or kV adjustment per patient size (includes targeted exams where dose is matched to clinical indication); or iterative reconstruction. Contrast material: OMNI 350; Contrast volume: 100 ml; Contrast route: INTRAVENOUS (IV); COMPARISON: CR XR lumbar spine 1V port 62522 11/28/2023 12:55 AM RADIATION DOSE METRICS: Total DLP (mGy-cm): 860 FINDINGS: Liver: Unremarkable. No mass. Gallbladder and biliary ducts: Unremarkable. No calcified stones. No ductal dilation. Pancreas: Unremarkable. No ductal dilation. Spleen: Unremarkable. No mass. Adrenal glands: Unremarkable. No mass. Kidneys and ureters: Small left renal cyst. No hydronephrosis. Stomach and bowel: Unremarkable. No obstruction. No significant mucosal thickening. Appendix: No evidence of appendicitis. Intraperitoneal space: No free air. No significant fluid collection. Vasculature: No abdominal aortic aneurysm. Lymph nodes: No enlarged lymph nodes. Urinary bladder: Unremarkable as visualized. Reproductive: Unremarkable as visualized. Bones/joints: No acute fracture. No suspicious lesion. Soft tissues: No bowel containing hernia. CT/CT abdomen pelvis w con* [id number] IMPRESSION: No acute intra-abdominal findings. COMMENTS: Consistent with the [employer]'s Incidental Findings Committee white paper (J Am Ana Rosa Radiol 2018): Any incidental renal lesion less than 1 cm or classified as too small to characterize, or any incidental cystic renal lesion characterized as simple-appearing, is likely benign. No follow-up imaging is recommended for these lesions per consensus recommendations based on imaging criteria.
[2024-05-31] MEDS: iohexol 350 mg/mL 500 mL Btl (per mL) IV (00:34)
== END 2024-05-31 02:32 | disposition home or self-care (01) ==
PROVIDERS: Emergency Provider Emergency Medicine; PCP Nurse Practitioner Family
DX: R11.2 Nausea with vomiting, unspecified (principal)
CPT/HCPCS: 36415; 74177; 80053; 83690; 85025; 96374; 99285; J2405

== ENCOUNTER 2024-06-14 00:22 | Emergency (ER) | payer MEDICAID, SELFPAY ==
[2024-06-14 00:29] VITALS: BP 159/112; PULSE 80; RESP 24; TEMP 36.9; O2SAT 100; BMI 31.0
--- NOTE | 2024-06-14 00:33 | ED.C_ITS ---
HPI - Psych General: Chief Complaint: Psychiatric Symptoms Stated Complaint: anxiety Time Seen by Provider: 06/14/24 00:25 History of Present Illness: Patient says he was feeling a lot of stress, depression and anxiety related to health problems of his family. His mother has cancer in his father is on dialysis. He decided to smokes marijuana to deal with this and it made his anxiety much worse. He is currently crying and hyperventilating. He denies any suicidal ideation or homicidal ideation. He says he just needs something to help with the anxiety Related Data Home Medications Medication Instructions Recorded Confirmed acetaminophen 500 mg tablet 1,000 mg PO Q6H PRN Pain 11/18/23 05/07/24 ibuprofen 200 mg tablet 400 mg PO Q6H PRN Pain 11/18/23 05/07/24 cetirizine 10 mg tablet (Zyrtec) 10 mg PO DAILY PRN 03/21/24 05/07/24 Previous Rx's Medication Instructions Recorded buspirone 15 mg tablet 15 mg PO TID 30 days #90 tabs 05/07/24 lithium carbonate 300 mg capsule 300 mg PO BID 30 days #60 caps 05/07/24 quetiapine 400 mg tablet 400 mg PO .q hs 30 days #30 tabs 05/07/24 venlafaxine 150 mg 150 mg PO QAM #30 caps 05/07/24 capsule,extended release 24 hr ondansetron 8 mg disintegrating 8 mg PO Q6H #14 tabs 05/31/24 tablet promethazine 25 mg rectal 25 mg MS Q6H PRN nausea and 05/31/24 suppository vomiting #12 ea Allergies Allergy/AdvReac Type Severity Reaction Status Date / Time No Known Allergies Allergy Verified 06/14/24 00:32 Review of Systems Narrative: Constitutional symptoms: Negative except as documented in HPI. Skin symptoms: Negative except as documented in HPI. Eye symptoms: Negative except as documented in HPI. ENMT symptoms: Negative except as documented in HPI. Respiratory symptoms: Negative except as documented in HPI. Cardiovascular symptoms: Negative except as documented in HPI. Gastrointestinal symptoms: Negative except as documented in HPI. Genitourinary symptoms: Negative except as documented in HPI. Musculoskeletal symptoms: Negative except as documented in HPI. Neurologic symptoms: Negative except as documented in HPI. Psychiatric symptoms: Negative except as documented in HPI. Endocrine symptoms: Negative except as documented in HPI. [facility] ED PFSH: Medical History Psychiatric care History of OCD (obsessive compulsive disorder) Depression Social History Smoking and tobacco/nicotine status: unknown if used tobacco/nicotine Physical Exam Narrative: EXAM NARRATIVE: General: Alert, no acute distress. Skin: Warm, dry. Head: Normocephalic, atraumatic. Neck: Supple, trachea midline. Eye: Extraocular movements are intact. Ears, nose, mouth and throat: mucosa moist. Cardiovascular: Regular, Normal peripheral perfusion. Respiratory: Lungs are clear to auscultation, respirations are non-labored, breath sounds are equal, Symmetrical chest wall expansion. Gastrointestinal: Soft, Nontender, Non distended Musculoskeletal: Normal ROM, no deformity. Neurological: Alert and oriented, No focal neurological deficit observed. Psychiatric: Cooperative, crying and hyperventilating. Appears very anxious Course Vital Signs: Vital signs: Vital Signs Temperature 98.5 F 06/14/24 00:29 Pulse Rate 80 06/14/24 00:29 Respiratory Rate 24 H 06/14/24 00:29 Blood Pressure 159/112 06/14/24 00:29 Pulse Oximetry 100 06/14/24 00:29 Oxygen Delivery Me thod Room Air 06/14/24 00:29 MDM - Psych Medical Decision Making Assessment and plan: Anxiety ?IM Ativan in the emergency room - Discharged home - Discussed plan with patient. Answered any questions. - Evaluation and treatment of this problem were appropriate in the emergency setting. No radiology studies performed this visit Discharge Plan Discharge Patient Disposition: Home Clinical Impression: Acute anxiety Condition: Stable Prescriptions: No Action venlafaxine 150 mg capsule,extended release 24hr 150 mg PO QAM Qty: 30 1RF Rx Instructions: Take one capsule by mouth every morning; stop 75 mg dose buspirone 15 mg tablet 15 mg PO TID 30 Days Qty: 90 1RF Rx Instructions: Take one tablet by mouth three times daily at least 6 hours apart lithium carbonate 300 mg capsule 300 mg PO BID 30 Days Qty: 60 1RF Rx Instructions: Take one capsule by mouth twice a day-morning and evening quetiapine 400 mg tablet 400 mg PO .q hs 30 Days Qty: 30 1RF Rx Instructions: Take one tablet daily before bedtime promethazine 25 mg suppository 25 mg MS Q6H PRN (Reason: nausea and vomiting) Qty: 12 0RF ondansetron 8 mg tablet,disintegrating 8 mg PO Q6H Qty: 14 0RF Rx Instructions: Take 1/2-1 tab every 6 hours as needed for nausea and vomiting acetaminophen 500 mg Tablet 1,000 mg PO Q6H PRN (Reason: Pain) ibuprofen 200 mg Tablet 400 mg PO Q6H PRN (Reason: Pain) cetirizine [Zyrtec] 10 mg tablet 10 mg PO DAILY PRN Discharge Orders: Discharge ED (Routine); Ordered 06/14/24 Ordered By: Esther Handy Referrals: Ludmila Goncalves FNP [Primary Care Provider] - Discharge Diet: Usual diet Discharge Activity: Increase activity as tolerated Patient Instructions: Anxiety (ED), Opioid Safety, Pain Management Activity Restrictions/Additional Instructions: Please follow-up with the [facility] behavioral health crisis center tomorrow or the next day. Phone number is [phone]. There is a 24-hour crisis hotline with the number of [id number]. Hours of operation are 8 AM to 6 PM. If you develop any homicidal or suicidal thoughts please return to the emergency room or seek help elsewhere Thank you for choosing [facility] for your healthcare needs today. Please realize this is an emergency room and that we are providing you with a medical screening exam and this may not be complete and all inclusive of all the testing and or work up that you may need to determine your ailment or severity of your illness. You have been screened and evaluated and felt safe for discharge. Health conditions do change or evolve sometimes and as such it is important that you follow up with your Primary Doctor to be re checked, 3-5 days is a general good time frame for follow up. 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
[2024-06-14] MEDS: LORazepam 2 mg/mL INJ 1 mL IM (00:37)
[2024-06-14 01:01] VITALS: BP 124/72; PULSE 86; RESP 18; O2SAT 98
[2024-06-14 01:30] VITALS: BP 117/69; PULSE 83; RESP 17; O2SAT 98
--- NOTE | 2024-06-14 01:54 | PC.NURSE ---
Pt discharged and trying to get a ride home.
[2024-06-14 02:07] VITALS: BP 142/80; PULSE 76; RESP 16; O2SAT 99
== END 2024-06-14 02:08 | disposition home or self-care (01) ==
PROVIDERS: Emergency Provider Emergency Medicine; PCP Nurse Practitioner Family
DX: F41.8 Other specified anxiety disorders (principal)
CPT/HCPCS: 96372; 99284; J2060

== ENCOUNTER → 2024-06-20 10:06 | Outpatient (BNVA) | payer MEDICAID, SELFPAY | PROVIDERS: PCP Nurse Practitioner Family; Visit Provider Nurse Practitioner Psychiatric/Mental Health | DX: Z51.81 Encounter for therapeutic drug level monitoring (principal) | CPT/HCPCS: 80178 ==

== ENCOUNTER 2024-06-25 18:31 | Inpatient (IN) | payer MEDICAID, SELFPAY ==
--- NOTE | 2024-06-25 18:35 | W.ED.PSYCHS ---
HPI - Psych General: Chief Complaint: Psychiatric Symptoms Stated Complaint: SI Time Seen by Provider: 06/25/24 18:32 Source: patient and EMS Mode of arrival: EMS Limitations: no limitations History of Present Illness: 23-year-old male who is here with EMS for suicidality states he has been severely depressed he is cut his arms multiple times and multiple superficial lacerations states that he wants to kill himself with a plan of slitting his wrist. He has been admitted previously. Associated symptoms: Reports depression and suicidal ideation Related Data Home Medications Medication Instructions Recorded Confirmed acetaminophen 500 mg tablet 1,000 mg PO Q6H PRN Pain 11/18/23 06/20/24 ibuprofen 200 mg tablet 400 mg PO Q6H PRN Pain 11/18/23 06/20/24 cetirizine 10 mg tablet (Zyrtec) 10 mg PO DAILY PRN 03/21/24 06/20/24 Previous Rx's Medication Instructions Recorded ondansetron 8 mg disintegrating 8 mg PO Q6H #14 tabs 05/31/24 tablet promethazine 25 mg rectal 25 mg [place] Q6H PRN nausea and 05/31/24 suppository vomiting #12 ea buspirone 15 mg tablet 15 mg PO TID 30 days #90 tabs 06/20/24 lithium carbonate 300 mg capsule 300 mg PO BID 30 days #60 caps 06/20/24 quetiapine 400 mg tablet 400 mg PO .q hs 30 days #30 tabs 06/20/24 venlafaxine 150 mg 150 mg PO QAM #30 caps 06/20/24 capsule,extended release 24 hr Allergies Allergy/AdvReac Type Severity Reaction Status Date / Time No Known Allergies Allergy Verified 06/25/24 18:43 Review of Systems Const: Denies: fever(s), chills, body aches or change in appetite ENMT: Denies: throat pain or dental pain Card: Denies: chest pain Resp: Denies: dyspnea GI: Denies: abdominal pain, nausea, vomiting or diarrhea Musc: Denies: neck pain or back pain Skin/Breast: Denies: rash Neuro: Denies: headache(s) Psych: Reports: depression and suicidal ideation PFS ED PFSH: Medical History Psychiatric care History of OCD (obsessive compulsive disorder) Depression Social History Smoking and tobacco/nicotine status: unknown if used tobacco/nicotine Physical Exam Const: COMMON NORMALS: no acute distress, patient oriented x3 and healthy appearing HENMT: COMMON NORMALS: normocephalic and atraumatic HEAD & SCALP: normocephalic and atraumatic Neck/C-Spine: COMMON NORMALS: full ROM and supple Chest: COMMONS NORMALS: normal inspection of the chest Resp: COMMON NORMALS: normal respiratory effort Cardio: COMMON NORMALS: regular rate RATE: regular rate Extremity: COMMON NORMALS: full ROM Neuro: COMMON NORMALS: patient oriented x3, moves all extremities and no focal motor deficits Psych: COMMON NORMALS: mental status grossly normal, Normal thought process present and cooperative MOOD & AFFECT: Yes depressed mood THOUGHT PROCESS: Normal thought process present THOUGHT CONTENT: Yes Suicidality present Skin: COMMON NORMALS: no rashes or lesions noted NARRATIVE SKIN EXAM: Multiple superficial lacerations to forearms GENERAL SKIN EXAM: no rashes or lesions noted Course Vital Signs: Vital signs: Vital Signs Temperature 98.5 F 06/25/24 18:39 Pulse Rate 82 06/25/24 21:03 Respiratory Rate 18 06/25/24 20:49 Blood Pressure 126/77 06/25/24 21:03 Pulse Oximetry 95 06/25/24 21:03 Oxygen Delivery Me thod Room Air 06/25/24 20:49 MDM - Psych Medical Decision Making Patient presents here with suicidal ideation patient's medically cleared I spoke Dr. Bowie will place on nine 8-year-old and admit. Medical Records I reviewed the patient's medical records. Lab Data I reviewed the patient's lab results. 06/25/24 18:53 06/25/24 18:53 Laboratory Results WBC 7.78 10^3/uL (3.29-11.43) 06/25/24 18:53 RBC 5.06 10^6/uL (3.85-5.65) 06/25/24 18:53 Hgb 15.10 g/dL (11.27-16.99) 06/25/24 18:53 Hct 45.0 % (37-53) 06/25/24 18:53 MCV 88.9 fl (82-101) 06/25/24 18:53 MCH 29.8 pg (27-33) 06/25/24 18:53 MCHC 33.6 g/dL (30-55) 06/25/24 18:53 RDW 12.9 % (12.1-15.1) 06/25/24 18:53 Plt Count 315 10^3/cmm (157-399) 06/25/24 18:53 MPV 8.8 fL (7.4-10.4) 06/25/24 18:53 Neut % (Auto) 64.5 % 06/25/24 18:53 Lymph % (Auto) 27.6 % 06/25/24 18:53 Bartholomew % (Auto) 6.7 % 06/25/24 18:53 Eos % (Auto) 0.6 % 06/25/24 18:53 Baso % (Auto) 0.3 % 06/25/24 18:53 Neut # (Auto) 5.02 10^3/uL (1.8-7.7) 06/25/24 18:53 Lymph # (Auto) 2.2 10^3/uL (0.8-4.8) 06/25/24 18:53 Bartholomew # (Auto) 0.5 10^3/uL (0.2-0.9) 06/25/24 18:53 Eos # (Auto) 0.1 10^3/uL (0.0-0.8) 06/25/24 18:53 Baso # (Auto) 0.0 10^3/uL (0.0-0.1) 06/25/24 18:53 Nucleated RBC % (auto) 0 % 06/25/24 18:53 Nucleated RBCs # 0.0 /100WBC 06/25/24 18:53 Sodium 139 mmol/L (136-145) 06/25/24 18:53 Potassium 4.0 mmol/L (3.5-5.1) 06/25/24 18:53 Chloride 105 mmol/L (98-107) 06/25/24 18:53 Carbon Dioxide 19 mmol/L (22-29) L 06/25/24 18:53 Anion Gap 19.0 (5-19) 06/25/24 18:53 BUN 12 mg/dL (6-20) 06/25/24 18:53 Creatinine 0.8 mg/dL (0.7-1.2) 06/25/24 18:53 GFR Calculation 122.0 mL/min (90-130) 06/25/24 18:53 Glucose 85 mg/dL (65-115) 06/25/24 18:53 Calculated Osmolality 287 mOsm/kg (285-295) 06/25/24 18:53 Calcium 9.8 mg/dL (8.5-10.5) 06/25/24 18:53 Total Bilirubin 0.3 mg/dL (0.15-1.2) 06/25/24 18:53 AST 17 U/L (0-40) 06/25/24 18:53 ALT 12 U/L (0-41) 06/25/24 18:53 Alkaline Phosphatase 81 U/L (40-130) 06/25/24 18:53 Total Protein 7.7 g/dL (6.6-8.7) 06/25/24 18:53 Albumin 4.8 g/dL (3.5-5.2) 06/25/24 18:53 Globulin 2.9 g/dL (1.3-4.6) 06/25/24 18:53 Salicylates 0.5 mg/dL (3-10) L 06/25/24 18:53 Urine Opiates Screen Negative ng/mL (Negative) 06/25/24 19:01 Acetaminophen < 5.0 ug/mL (10-30) L 06/25/24 18:53 Ur Barbiturates Screen Negative ng/mL (Negative) 06/25/24 19:01 Ur Phencyclidine Scrn Negative ng/mL (Negative) 06/25/24 19:01 Ur Amphetamines Screen Negative ng/mL (Negative) 06/25/24 19:01 U Benzodiazepines Scrn Negative ng/mL (Negative) 06/25/24 19:01 Urine Cocaine Screen Negative ng/mL (Negative) 06/25/24 19:01 U Marijuana (THC) Screen Positive ng/mL (Negative) H 06/25/24 19:01 Ethyl Alcohol < 10 mg/dL (0-10) 06/25/24 18:53 No radiology studies performed this visit Discharge Plan Discharge Patient Disposition: Admitted As Inpatient Admit Provider: Fadi Bowie Clinical Impression: Suicidal ideation Condition: Stable Coding Level of Care Code ED Circuit 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
[2024-06-25 18:39] VITALS: BP 158/89; PULSE 69; RESP 18; TEMP 36.9; O2SAT 98
[2024-06-25 19:03] LABS: Basophils % 0.3 %; Eosinophils # 0.1 10^3/uL (0.0-0.8); Eosinophils % 0.6 %; Lymphocytes # 2.2 10^3/uL (0.8-4.8); Lymphocytes % 27.6 %; Mean Corpuscular HGB Conc 33.6 g/dL (30-55); Mean Corpuscular Hemoglobin 29.8 pg (27-33); Mean Corpuscular Volume 88.9 fl (82-101); Mean Platelet Volume 8.8 fL (7.4-10.4); Monocytes # 0.5 10^3/uL (0.2-0.9); Monocytes % 6.7 %; Neutrophils # 5.02 10^3/uL (1.8-7.7); Neutrophils % 64.5 %; Nucleated Red Blood Cells % 0 %; Platelet Count 315 10^3/cmm (157-399); Red Blood Count 5.06 10^6/uL (3.85-5.65); Red Cell Distribution Width 12.9 % (12.1-15.1); White Blood Count 7.78 10^3/uL (3.29-11.43)
[2024-06-25 19:26] LABS: Alanine Aminotransferase 12 U/L (0-41); Albumin Level 4.8 g/dL (3.5-5.2); Alkaline Phosphatase 81 U/L (40-130); Aspartate Amino Transferase 17 U/L (0-40); Blood Urea Nitrogen 12 mg/dL (6-20); Calcium 9.8 mg/dL (8.5-10.5); Carbon Dioxide 19 mmol/L (22-29); Chloride 105 mmol/L (98-107); Creatinine Clr Calc Pharmacy 166.3554; Globulin 2.9 g/dL (1.3-4.6); Glucose 85 mg/dL (65-115); Osmolality Calculated 287 mOsm/kg (285-295); Salicylate 0.5 mg/dL (3-10); Sodium 139 mmol/L (136-145); Total Bilirubin 0.3 mg/dL (0.15-1.2); Total Protein 7.7 g/dL (6.6-8.7)
[2024-06-25 19:30] LABS: Acetaminophen < 5.0 ug/mL (10-30); Alcohol Level < 10 mg/dL (0-10)
[2024-06-25 19:32] LABS: Amphetamines Screen Urine Negative (Negative); Barbiturates Screen Urine Negative (Negative); Benzodiazepines Screen Urine Negative (Negative); Cocaine Screen Urine Negative (Negative); Opiate Screen Urine Negative (Negative); PCP Screen Urine Negative (Negative); THC Screen Urine Positive (Negative)
[2024-06-25] MEDS: LORazepam 2 mg/mL INJ 1 mL IM ×2 (19:52→20:49)
[2024-06-25] MEDS: haloperidol inj 5 mg/mL INJ 1 mL IM (19:53)
--- NOTE | 2024-06-25 19:56 | PC.NURSE ---
Pt crying, rocking back and forth with signs of anxiety stating he doesn't like everything being taken away from him. Dr amin and meds given.
[2024-06-25 20:49] VITALS: BP 126/77; PULSE 82; RESP 18; O2SAT 95
--- NOTE | 2024-06-25 20:54 | PC.NURSE ---
pt report called to Atilio at 2054 for NPU.
--- NOTE | 2024-06-25 20:58 | PC.NURSE ---
96 HH Pt served with copy of 96 HH by this RN and security. Pt was A&O x 3. Pt became tearful and angry when asking about 96 HH does this mean I've got to go to court? Pt crying, sweating and rocking in the bed. Numerous superficial lacerations noted to bilateral forearms. Pt stated that were fresh . Pt went on to say my friend was in town on Monday and I missed the call . Pt reassured that a phone was available in NPU.
[2024-06-25 21:00] VITALS: BP 136/82; PULSE 80; RESP 18; TEMP 36.9; O2SAT 97
[2024-06-25 21:03] VITALS: BP 126/77; PULSE 82; O2SAT 95
[2024-06-25 22:00] VITALS: BP 136/82; PULSE 80; RESP 18; TEMP 36.9; O2SAT 97
[2024-06-25] MEDS: quetiapine 100 mg Tablet 400 MG PO (22:15)
[2024-06-25] MEDS: BuSPIRONE 10 mg Tablet 15 MG PO (22:15)
[2024-06-26 06:00] VITALS: RESP 18
--- NOTE | 2024-06-26 06:27 | PC.NURSE ---
Patient refused nurse was notified.
[2024-06-26] MEDS: lithium carbonate 300 mg Capsule PO ×2 (08:32→20:00)
[2024-06-26] MEDS: venlafaxine ER (24HR) 150 mg Capsule PO (08:32)
[2024-06-26] MEDS: BuSPIRONE 10 mg Tablet 15 MG PO ×3 (08:32→20:00)
[2024-06-26] MEDS: flu vacc pf 24-25 (6 mos+) SYRINGE 45 MCG IM (08:33)
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
[2024-06-26 14:00] VITALS: BP 104/46; PULSE 95; RESP 16; TEMP 36.9; O2SAT 97
[2024-06-26] MEDS: nicotine 2 mg Gum BUCCAL (17:17)
[2024-06-26] MEDS: quetiapine 100 mg Tablet 400 MG PO (20:01)
[2024-06-26 22:00] VITALS: BP 144/95; PULSE 78; RESP 17; TEMP 37.2; O2SAT 100
[2024-06-27 06:00] VITALS: BP 130/79; PULSE 79; RESP 17; TEMP 36.8; O2SAT 99
[2024-06-27] MEDS: hyDROXYzine 25 mg Capsule 50 MG PO (07:50)
[2024-06-27] MEDS: venlafaxine ER (24HR) 150 mg Capsule PO (08:18)
[2024-06-27] MEDS: BuSPIRONE 10 mg Tablet 15 MG PO ×3 (08:18→20:23)
[2024-06-27] MEDS: OLANZapine 5 mg ODT PO (09:34)
[2024-06-27] MEDS: lithium carbonate 300 mg Capsule PO ×2 (09:36→20:23)
[2024-06-27 14:00] VITALS: BP 144/94; PULSE 117; RESP 17; TEMP 36.8; O2SAT 96
--- NOTE | 2024-06-27 14:46 | W.PM.NPUPNS ---
Subjective NPU Subjective: Patient presented today reporting that he is doing better. He spoke with his family and advised him to work with us to help him get to a better place. We discussed the risks, benefits and alternatives of increasing his Effexor XR and he understood and agreed to proceed as is documented in this note. He denied any side effects to his medications. Mental Status Exam MSE Comments: This is a well-nourished, well-developed, white male, in hospital scrubs with adequate grooming and limited contact. No abnormal movements, except for mild psychomotor agitation. Cooperative with exam in mild distress. Speech was mostly normal rate and slightly decreased volume. Mood described as depressed and overwhelmed; affect congruent. Thought process, organized. Thought content: patient denies active suicidal or homicidal ideation; patient denied delusions and none were noted; patient denied any auditory or visual hallucinations. Attention, concentration, and memory appeared intact, but none were formally tested. Alert and oriented times three. Insight and judgment appear fair. Impulse control is limited. Vitals/I&O/Wt Last Vital Signs Temp 98.3 F 06/27/24 14:00 Pulse 117 H 06/27/24 14:00 Resp 17 06/27/24 14:00 BP 144/94 06/27/24 14:00 Pulse Ox 96 06/27/24 14:00 O2 Del Method Room Air 06/27/24 14:00 Weight last 48 hrs Weight 95.254 kg Data NPU 06/25/24 18:53 06/25/24 18:53 A&P Assessment and plan (1) Bipolar disorder with depression: (2) Panic attacks: (3) History of OCD (obsessive compulsive disorder): (4) Suicidal ideations: (5) PTSD (post-traumatic stress disorder): Plan 23-year-old white male extensive history of bipolar disorder admitted with suicidal ideation and worsening depression along with multiple suicide attempts and a history of chronic suicidal ideation and mood dysregulation. He has a history of noncompliance with medications. 1. Encourage individual, group and milieu therapy. 2. Recommend sober living treatment at the highest level of care to which the patient is willing to commit. 3. Continue q-15 minute checks for safety 4. Continue current medication and consider increases in doses.. Increase Effexor XR to 187.5 mg on the path 225 mg at discharge. Involuntary Hold Information 96 Hour Hold: 96 Hour Involuntary Admission: Yes 96 Hour Hold Ending Date: 07/01/24 96 Hour Hold Ending Time: 18:49 Other Hold: Hold End Date: 07/01/24 Attestations NPU Medical Necessity Statement*: Inpatient hospitalization is medically necessary and the clinically appropriate intervention at this time. We will monitor medications and make changes as indicated. He will be in the hospital for over 2 midnights. The patient's likely length of stay 4-5 days. Coding Level of Care Code Acute Code for [facility] Fwd Diagnoses Bipolar disorder with depression F31.9 Panic attacks F41.0 History of OCD (obsessive compulsive disorder) Z86.59 Suicidal ideations R45.851 PTSD (post-traumatic stress disorder) F43.10
[2024-06-27] MEDS: nicotine 2 mg Gum BUCCAL ×3 (15:46→20:22)
[2024-06-27] MEDS: quetiapine 100 mg Tablet 400 MG PO (20:22)
[2024-06-27 22:00] VITALS: BP 139/84; PULSE 87; RESP 17; TEMP 37; O2SAT 97
[2024-06-28 06:00] VITALS: BP 122/77; PULSE 76; RESP 17; TEMP 36.3; O2SAT 99
[2024-06-28] MEDS: BuSPIRONE 10 mg Tablet 15 MG PO ×3 (08:19→20:52)
[2024-06-28] MEDS: venlafaxine ER (24HR) 150 mg Capsule PO (08:19)
[2024-06-28] MEDS: venlafaxine ER (24HR) 37.5 mg Capsule PO (08:20)
[2024-06-28] MEDS: lithium carbonate 300 mg Capsule PO ×2 (08:22→20:54)
[2024-06-28] MEDS: nicotine 2 mg Gum BUCCAL ×3 (08:24→17:44)
[2024-06-28] MEDS: OLANZapine 5 mg ODT PO ×2 (09:48→16:19)
--- NOTE | 2024-06-28 10:16 | P.NPUPN_ITS ---
Subjective NPU 2 Subjective: Patient presented today reporting that he is still struggling somewhat. He reports that he had multiple crying episodes. We were able to discussed the risks, benefits and alternatives of increasing his Effexor XR and he understood and agreed to proceed as is documented in this note. He reports that he is okay with staying through the weekend and we discussed the likelihood of Dr. Carey discharging him at the beginning of the week. He denied any side effects to medication. Mental Status Exam 2 MSE Comments: This is a well-nourished, well-developed, white male, in hospital scrubs with adequate grooming and limited contact. No abnormal movements, except for mild psychomotor agitation. Cooperative with exam in mild distress. Speech was mostly normal rate and slightly decreased volume. Mood described as depressed and overwhelmed; affect congruent. Thought process, organized. Thought content: patient denies active suicidal or homicidal ideation; patient denied delusions and none were noted; patient denied any auditory or visual hallucinations. Attention, concentration, and memory appeared intact, but none were formally tested. Alert and oriented times three. Insight and judgment appear fair. Impulse control is limited. Vitals/I&O/Wt Last Vital Signs Temp 97.4 F L 06/28/24 06:00 Pulse 76 06/28/24 06:00 Resp 17 06/28/24 06:00 BP 122/77 06/28/24 06:00 Pulse Ox 99 06/28/24 06:00 O2 Del Method Room Air 06/28/24 06:00 Data NPU 06/25/24 18:53 06/25/24 18:53 A&P Assessment and plan (1) Bipolar disorder with depression: (2) Panic attacks: (3) History of OCD (obsessive compulsive disorder): (4) Suicidal ideations: (5) PTSD (post-traumatic stress disorder): Plan 23-year-old white male extensive history of bipolar disorder admitted with suicidal ideation and worsening depression along with multiple suicide attempts and a history of chronic suicidal ideation and mood dysregulation. He has a history of noncompliance with medications. 1. Encourage individual, group and milieu therapy. 2. Recommend sober living treatment at the highest level of care to which the patient is willing to commit. 3. Continue q-15 minute checks for safety 4. Continue current medication and consider increases in doses.. Increase Effexor XR to 187.5 mg on the path 225 mg at discharge. Involuntary Hold Information 2 96 Hour Hold: 96 Hour Involuntary Admission: Yes 96 Hour Hold Ending Date: 07/01/24 96 Hour Hold Ending Time: 18:49 Other Hold: Hold End Date: 07/01/24 Attestations NPU 2 Medical Necessity Statement*: Inpatient hospitalization is medically necessary and the clinically appropriate intervention at this time. We will monitor medications and make changes as indicated. The patient's likely length of stay 3-4 days. Coding Level of Care Code Acute Code for Chg Fwd Diagnoses Bipolar disorder with depression F31.9 Panic attacks F41.0 History of OCD (obsessive compulsive disorder) Z86.59 Suicidal ideations R45.851 PTSD (post-traumatic stress disorder) F43.10
[2024-06-28] MEDS: hyDROXYzine 25 mg Capsule 50 MG PO (11:05)
[2024-06-28 14:00] VITALS: BP 145/83; PULSE 75; RESP 12; TEMP 36.7; O2SAT 98
--- NOTE | 2024-06-28 16:20 | PC.NURSE ---
pt pacing up and down hallway crying and hitting himself in the head. states that just like this morning he was doing fine then all of a sudden he went to feeling low an wanting to burst out into tears.
[2024-06-28 20:27] VITALS: BP 126/80; PULSE 108; RESP 18; TEMP 37; O2SAT 98
[2024-06-28] MEDS: quetiapine 100 mg Tablet 400 MG PO (20:53)
[2024-06-28] MEDS: ibuprofen 600 mg Tablet PO (21:46)
[2024-06-29 06:00] VITALS: BP 116/70; PULSE 75; RESP 16; TEMP 36.9; O2SAT 97
[2024-06-29] MEDS: venlafaxine ER (24HR) 37.5 mg Capsule PO ×2 (08:46→12:45)
[2024-06-29] MEDS: venlafaxine ER (24HR) 150 mg Capsule PO (08:46)
[2024-06-29] MEDS: BuSPIRONE 10 mg Tablet 15 MG PO ×3 (08:46→20:20)
[2024-06-29] MEDS: lithium carbonate 300 mg Capsule PO ×2 (08:46→20:20)
--- NOTE | 2024-06-29 09:33 | P.NPUPN_ITS ---
Subjective NPU 2 Subjective: Patient presented today reporting that he is still struggling. He continued to vacillate between being okay with being here to being totally consumed with needing to go home. He reports that he had multiple crying episodes. We were able to discussed the risks, benefits and alternatives of increasing his Effexor XR to 225 mg daily and he understood and agreed to proceed as is documented in this note. We discussed Dr. Carey returning tomorrow and likely discharging him at the beginning of the week. He denied any side effects to medication. Mental Status Exam 2 MSE Comments: This is a well-nourished, well-developed, white male, in hospital scrubs with adequate grooming and limited contact. No abnormal movements, except for mild psychomotor agitation. Cooperative with exam in mild to moderate distress. Speech was mostly normal rate and slightly decreased volume. Mood described asanxious and overwhelmed; affect congruent. Thought process, organized. Thought content: patient denies active suicidal or homicidal ideation; patient denied delusions and none were noted; patient denied any auditory or visual hallucinations. Attention, concentration, and memory appeared intact, but none were formally tested. Alert and oriented times three. Insight and judgment appear fair. Impulse control is limited. Vitals/I&O/Wt Last Vital Signs Temp 98.4 F 06/29/24 06:00 Pulse 75 06/29/24 06:00 Resp 16 06/29/24 06:00 BP 116/70 06/29/24 06:00 Pulse Ox 97 06/29/24 06:00 O2 Del Method Room Air 06/28/24 14:00 Data NPU 06/25/24 18:53 06/25/24 18:53 A&P Assessment and plan (1) Bipolar disorder with depression: (2) Panic attacks: (3) History of OCD (obsessive compulsive disorder): (4) Suicidal ideations: (5) PTSD (post-traumatic stress disorder): Plan 23-year-old white male extensive history of bipolar disorder admitted with suicidal ideation and worsening depression along with multiple suicide attempts and a history of chronic suicidal ideation and mood dysregulation. He has a history of noncompliance with medications. 1. Encourage individual, group and milieu therapy. 2. Recommend sober living treatment at the highest level of care to which the patient is willing to commit. 3. Continue q-15 minute checks for safety 4. Continue current medication and consider increases in doses.. Increased Effexor XR to 187.5 mg . Will increase to 225 mg today. Involuntary Hold Information 2 96 Hour Hold: 96 Hour Involuntary Admission: Yes 96 Hour Hold Ending Date: 07/01/24 96 Hour Hold Ending Time: 18:49 Other Hold: Hold End Date: 07/01/24 Attestations NPU 2 Medical Necessity Statement*: Inpatient hospitalization is medically necessary and the clinically appropriate intervention at this time. We will monitor medications and make changes as indicated. The patient's likely length of stay 2-4 days. Coding Level of Care Code Acute Code for Chg Fwd Diagnoses Bipolar disorder with depression F31.9 Panic attacks F41.0 History of OCD (obsessive compulsive disorder) Z86.59 Suicidal ideations R45.851 PTSD (post-traumatic stress disorder) F43.10
[2024-06-29] MEDS: nicotine 2 mg Gum BUCCAL ×2 (10:51→17:32)
[2024-06-29] MEDS: hyDROXYzine 25 mg Capsule 50 MG PO (10:53)
[2024-06-29] MEDS: OLANZapine 5 mg ODT PO (12:44)
[2024-06-29] MEDS: haloperidol 5 mg Tablet PO (13:05)
[2024-06-29 14:00] VITALS: BP 118/85; PULSE 105; RESP 16; TEMP 36.4; O2SAT 96
[2024-06-29] MEDS: quetiapine 100 mg Tablet 400 MG PO (20:21)
[2024-06-29 20:55] VITALS: BP 124/81; PULSE 64; RESP 18; TEMP 36.7; O2SAT 98
[2024-06-30] MEDS: hyDROXYzine 25 mg Capsule 50 MG PO ×3 (03:04→20:58)
[2024-06-30] MEDS: OLANZapine 5 mg ODT PO (04:31)
[2024-06-30] MEDS: haloperidol 5 mg Tablet PO (05:52)
[2024-06-30 06:00] VITALS: BP 127/87; PULSE 80; RESP 18; TEMP 36.7; O2SAT 96
[2024-06-30] MEDS: BuSPIRONE 10 mg Tablet 15 MG PO ×3 (08:39→20:12)
[2024-06-30] MEDS: lithium carbonate 300 mg Capsule PO ×2 (08:39→20:13)
[2024-06-30] MEDS: venlafaxine ER (24HR) 75 mg Capsule 225 MG PO (08:39)
--- NOTE | 2024-06-30 08:43 | PC.NURSE ---
refused scheduled Nystatin powder
[2024-06-30] MEDS: nicotine 2 mg Gum BUCCAL ×2 (10:48→17:40)
[2024-06-30] MEDS: benztropine 1 mg/mL SDV 2 mL 2 MG IM (12:30)
--- NOTE | 2024-06-30 12:39 | PC.NURSE ---
Patient at window reporting stiffness in leg muscles. This nurse notified Dr. Carey, who gave verbal order for 2mg cogentin IM into patient's right deltoid muscle. Patient tolerated well. Patient reports a history of EPS, calling it a stroke. Patiemnt reports anxiety related to his past history but denies need for anti-anxiety medication. Dr. Carey ordered this comic writer to hold the [employer] MOD.
[2024-06-30 14:00] VITALS: BP 106/74; PULSE 68; RESP 16; TEMP 36.6; O2SAT 98
[2024-06-30] MEDS: ibuprofen 600 mg Tablet PO (15:08)
[2024-06-30] MEDS: acetaminophen 325 mg Tablet 650 MG PO (16:03)
--- NOTE | 2024-06-30 16:24 | W.PM.NPUPNS ---
Subjective NPU Subjective: 23-year-old male with borderline personality disorder and bipolar disorder admitted with suicidal ideation. The patient had continued to report having a myriad of problems. He reported that he had had anxiety and requested medication to help him with his anxiety. At the same time, the patient had reported that he felt uncomfortable and wished to leave here. He had also complained today of having muscle stiffness. He had received significant as needed medications of Zyprexa for agitation and anxiety. He had continued to report mood continuity disruption. He continues to have periods of intense crying and reported that he was uncertain why he had this problem. Mental Status Exam MSE Comments: This is a well-nourished, well-developed, white male, in hospital scrubs with adequate grooming and limited contact. No abnormal movements, except for mild psychomotor agitation. He was cooperative with exam in moderate distress. His speech was mostly normal rate and slightly decreased volume. Mood described as anxious and overwhelmed; His affect was labile and intense. Thought process, was linear and organized. Thought content: patient denies active suicidal or homicidal ideation; patient denied delusions and none were noted; patient denied any auditory or visual hallucinations. Attention, concentration, and memory appeared intact, but none were formally tested. Alert and oriented x3. Insight was limited and judgment appear fair. Impulse control is limited. Vitals/I&O/Wt Last Vital Signs Temp 98 F 06/30/24 14:00 Pulse 68 06/30/24 14:00 Resp 16 06/30/24 14:00 BP 106/74 06/30/24 14:00 Pulse Ox 98 06/30/24 14:00 O2 Del Method Room Air 06/30/24 14:00 Weight last 48 hrs Weight 95.889 kg Data NPU 06/25/24 18:53 06/25/24 18:53 A&P Assessment and plan (1) Bipolar disorder with depression: (2) Panic attacks: (3) History of OCD (obsessive compulsive disorder): (4) Suicidal ideations: (5) PTSD (post-traumatic stress disorder): Plan 23-year-old white male extensive history of bipolar disorder admitted with suicidal ideation and worsening depression along with multiple suicide attempts and a history of chronic suicidal ideation and mood dysregulation. He has a history of noncompliance with medications. 1. Encourage individual, group and milieu therapy. 2. Recommend sober living treatment at the highest level of care to which the patient is willing to commit. 3. Continue q-15 minute checks for safety 4. Continue current medication and consider increases in doses.. Increased Effexor xr to 225mg in am, continue buspar 15mg tid. 5. Check lithium level, electrolytes. Involuntary Hold Information 96 Hour Hold: 96 Hour Involuntary Admission: Yes 96 Hour Hold Ending Date: 07/01/24 96 Hour Hold Ending Time: 18:49 Other Hold: Hold End Date: 07/01/24 Attestations NPU Medical Necessity Statement*: Inpatient hospitalization is medically necessary and the clinically appropriate intervention at this time. We will monitor medications and make changes as indicated. The patient's likely length of stay 2-4 days. Coding Level of Care Code Acute Code for [facility] Fwd Diagnoses Bipolar disorder with depression F31.9 Panic attacks F41.0 History of OCD (obsessive compulsive disorder) Z86.59 Suicidal ideations R45.851 PTSD (post-traumatic stress disorder) F43.10
[2024-06-30] MEDS: nystatin powder 15 gm Btl 1 APPLIC TOPICAL (16:42)
[2024-06-30 19:48] LABS: Basophils % 0.3 %; Eosinophils # 0.1 10^3/uL (0.0-0.8); Eosinophils % 1.1 %; Lymphocytes # 2.3 10^3/uL (0.8-4.8); Lymphocytes % 29.7 %; Mean Corpuscular HGB Conc 33.5 g/dL (30-55); Mean Corpuscular Hemoglobin 30.3 pg (27-33); Mean Corpuscular Volume 90.3 fl (82-101); Mean Platelet Volume 9.5 fL (7.4-10.4); Monocytes # 0.6 10^3/uL (0.2-0.9); Monocytes % 7.5 %; Neutrophils # 4.67 10^3/uL (1.8-7.7); Neutrophils % 61.3 %; Nucleated Red Blood Cells % 0 %; Platelet Count 307 10^3/cmm (157-399); Red Blood Count 4.76 10^6/uL (3.85-5.65); Red Cell Distribution Width 12.6 % (12.1-15.1); White Blood Count 7.61 10^3/uL (3.29-11.43)
[2024-06-30 20:07] LABS: Alanine Aminotransferase 16 U/L (0-41); Albumin Level 4.8 g/dL (3.5-5.2); Alkaline Phosphatase 72 U/L (40-130); Blood Urea Nitrogen 14 mg/dL (6-20); Calcium 9.9 mg/dL (8.5-10.5); Carbon Dioxide 22 mmol/L (22-29); Chloride 104 mmol/L (98-107); Creatinine Clr Calc Pharmacy 166.8801; Globulin 2.6 g/dL (1.3-4.6); Glucose 96 mg/dL (65-115); Osmolality Calculated 292 mOsm/kg (285-295); Sodium 141 mmol/L (136-145); Total Bilirubin 0.2 mg/dL (0.15-1.2); Total Protein 7.4 g/dL (6.6-8.7)
[2024-06-30] MEDS: quetiapine 100 mg Tablet 400 MG PO (20:13)
[2024-06-30 20:25] LABS: Anion Gap 19.3 (5-19); Aspartate Amino Transferase 22 U/L (0-40); Potassium 4.3 mmol/L (3.5-5.1)
[2024-06-30 22:00] VITALS: BP 134/84; PULSE 96; RESP 18; TEMP 37.2; O2SAT 98
[2024-07-01] MEDS: hyDROXYzine 25 mg Capsule 50 MG PO (04:35)
[2024-07-01 05:26] VITALS: BP 124/87; PULSE 64; RESP 18; TEMP 36.7; O2SAT 99
[2024-07-01] MEDS: haloperidol 5 mg Tablet PO (05:58)
[2024-07-01 07:37] LABS: Lithium 0.3 mmol/L (0.6-1.2)
[2024-07-01] MEDS: BuSPIRONE 10 mg Tablet 15 MG PO (08:12)
[2024-07-01] MEDS: lithium carbonate 300 mg Capsule PO (08:12)
[2024-07-01] MEDS: nicotine 2 mg Gum BUCCAL ×3 (08:13→15:15)
[2024-07-01] MEDS: venlafaxine ER (24HR) 75 mg Capsule 225 MG PO (08:16)
[2024-07-01] MEDS: acetaminophen 325 mg Tablet 650 MG PO (13:19)
[2024-07-01 14:00] VITALS: BP 124/82; PULSE 90; RESP 16; TEMP 36.7; O2SAT 96
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
[2024-07-01 16:02] VITALS: BP 124/82; PULSE 90; RESP 16; TEMP 36.7; O2SAT 96
== END 2024-07-01 16:57 | disposition home or self-care (01) | DRG 885 ==
LOC: ER 20:31 → NP 20:57
PROVIDERS: Psychiatry & Neurology Psychiatry; Admitting Provider Psychiatry & Neurology Psychiatry; Emergency Provider Emergency Medicine; Visit Provider Psychiatry & Neurology Psychiatry
DX: F31.9 Bipolar disorder, unspecified (principal); R45.851 Suicidal ideations; F41.0 Panic disorder [episodic paroxysmal anxiety]; F43.10 Post-traumatic stress disorder, unspecified; Z91.51 Personal history of suicidal behavior; Z91.148 Patient's other noncompliance with medication regimen for other reason; Z86.59 Personal history of other mental and behavioral disorders
CPT/HCPCS: 36415; 80053; 80178; 80306; 80307; 85025; 90471; 90686; 96372; 97150; 97165; 99285; J0515; J1630; J2060

== ENCOUNTER 2024-07-05 17:41 | Emergency (ER) | payer MEDICAID, SELFPAY ==
[2024-07-05 18:26] VITALS: BP 140/90; PULSE 100; RESP 18; TEMP 36.9; O2SAT 98; BMI 32.5
--- NOTE | 2024-07-05 19:16 | ED_ITS ---
HPI - Headache General: Chief Complaint: Headache Stated Complaint: walked into tree, head and shoulder injury Time Seen by Provider: 07/05/24 18:36 Source: patient Mode of arrival: EMS Limitations: no limitations History of Present Illness: Patient is a 23-year-old male who presents the emergency department by ambulance due to a head injury that occurred a couple of hours prior to presenting. Quique delon states that he remembers standing up quickly bumping his head on a tree branch, knocking him to the ground. Denies losing consciousness but states he did throw up afterwards. States he was suffering from some amnesia to the event as he called EMS multiple times despite them already being on their way to pick him up. He states this has since resolved, and he only came in because his dad told him to get checked out. Reports playing football in the past and this feels identical to prior concussions. States that he is feeling drowsy at this time, has had no subsequent episodes of vomiting or focal neurological deficits. His vitals are stable at this time. He is reporting headache to the left temporoparietal side of his head where he hit the branch. EMS gave him Zofran on the way to the ER he states this helped with his nausea. MD elicited complaint: headache Pertinent past history: recent trauma Onset (ago): hour(s) Location: left, temporal and parietal Context: recent head injury Associated symptoms: Reports nausea and vomiting; Deny chest pain, fever(s) or lightheadedness Related Data Home Medications Medication Instructions Recorded Confirmed ibuprofen 200 mg tablet 400 mg PO Q6H PRN Pain 11/18/23 06/25/24 cetirizine 10 mg tablet (Zyrtec) 10 mg PO DAILY PRN Allergic 03/21/24 06/25/24 Symptoms Previous Rx's Medication Instructions Recorded buspirone 15 mg tablet 15 mg PO TID 30 days #90 tabs 06/20/24 lithium carbonate 300 mg capsule 300 mg PO BID 30 days #60 caps 06/20/24 quetiapine 400 mg tablet (Seroquel) 400 mg PO 2100 #30 tabs 07/01/24 venlafaxine 150 mg 150 mg PO DAILY #30 caps 07/01/24 capsule,extended release 24 hr venlafaxine 75 mg capsule,extended 75 mg PO QAM #30 caps 07/01/24 release 24 hr (Effexor XR) Allergies Allergy/AdvReac Type Severity Reaction Status Date / Time No Known Allergies Allergy Verified 06/25/24 18:43 Review of Systems General: Reports: 10 or more systems reviewed and unremarkable except in HPI and below Const: Reports: other (Drowsiness, head injury); Denies: fever(s), chills or fatigue Eyes: Denies: change in vision Card: Denies: chest pain, palpitations or lightheadedness Resp: Denies: dyspnea GI: Reports: nausea and vomiting; Denies: diarrhea or constipation Musc: Denies: neck pain, back pain or joint pain Neuro: Reports: headache(s) and other (Amnesia); Denies: numbness in extremities, weakness in extremities, sensory changes, lack of coordination, difficulty walking, frequent falls, dizziness, behavioral changes, Slurred speech present or seizure-like activity PFS ED PFSH: Medical History Psychiatric care History of OCD (obsessive compulsive disorder) Depression Social History Smoking and tobacco/nicotine status: unknown if used tobacco/nicotine Physical Exam Const: COMMON NORMALS: no acute distress, patient oriented x3 and no limitations GENERAL APPEARANCE: cooperative, comfortable and well developed ORIENTATION/CONSCIOUSNESS: Yes awake, Yes oriented to person, Yes oriented to place and Yes oriented to time HENMT: COMMON NORMALS: normocephalic, atraumatic and hearing grossly normal bilaterally HEAD & SCALP: normocephalic and atraumatic Eye: COMMON NORMALS: Equal, round and reactive pupils present, EOMs intact bilaterally and conjunctivae normal CONJUNCTIVA: Yes conjunctivae normal PUPIL: Yes Equal, round and reactive pupils present OTHER: No nystagmus Neck/C-Spine: COMMON NORMALS: full ROM, supple and no JVD Resp: COMMON NORMALS: normal respiratory effort, No retractions, No use of accessory muscles and clear to auscultation bilaterally AUSCULTATION: clear t o auscultation bilaterally Cardio: COMMON NORMALS: no JVD, regular rate, regular rhythm, No clicks present (Cardio), No murmurs present (Cardio) and No rub (Cardio) RATE: regular rate RHYTHM: regular rhythm Back/Pelvis: COMMON NORMALS: thoracic and lumbar spine normal to inspection, no thoracic nor lumbar tenderness and thoraco-lumbar ROM normal Extremity: COMMON NORMALS: normal to inspection, full ROM and capillary refill normal Neuro: COMMON NORMALS: patient oriented x3, CN's II-XII intact bilaterally, moves all extremities, no focal motor deficits, no sensory deficits noted and gait normal SENSORIUM/ORIENTATION: Yes oriented to person, Yes oriented to place and Yes oriented to time COORDINATION/BALANCE: [id number] test normal MOTOR EXAM: 5/5 motor strength present throughout, no tremor noted, no asterixis, Motor fasciculations not present and Normal motor muscle tone present throughout COORDINATION: [id number] test normal Psych: COMMON NORMALS: mental status grossly normal and Normal thought process present THOUGHT PROCESS: Normal thought process present Skin: COMMON NORMALS: no rashes or lesions noted GENERAL SKIN EXAM: no rashes or lesions noted Course Vital Signs: Vital signs: Vital Signs Temperature 98.5 F 07/05/24 18:26 Pulse Rate 100 07/05/24 18:26 Respiratory Rate 18 07/05/24 18:26 Blood Pressure 140/90 07/05/24 18:26 Pulse Oximetry 98 07/05/24 18:26 Oxygen Delivery Me thod Room Air 07/05/24 18:26 MDM - Headache Medical Decision Making Based on [place] head CT rule, recommended no CT at this time. Neurologically was completely intact and low mechanism of injury. With his vomiting and drowsiness, likely this is a postconcussive picture and discussed this thoroughly with the patient. States he has had concussions in the past due to playing football, and agrees that this feels identical to prior. States that he can be monitored tonight by family member, currently he is awaiting a ride home. All other questions and concerns were addressed and return precautions were given. No radiology studies performed this visit Discharge Plan Discharge Patient Disposition: Home Clinical Impression: Postconcussion syndrome, CHI (closed head injury) Condition: Stable Prescriptions: No Action buspirone 15 mg tablet 15 mg PO TID 30 Days Qty: 90 1RF Rx Instructions: Take one tablet by mouth three times daily at least 6 hours apart lithium carbonate 300 mg capsule 300 mg PO BID 30 Days Qty: 60 1RF Rx Instructions: Take one capsule by mouth twice a day-morning and evening quetiapine [Seroquel] 400 mg tablet 400 mg PO 2100 Qty: 30 1RF venlafaxine 150 mg capsule,extended release 24hr 150 mg PO DAILY Qty: 30 1RF venlafaxine [Effexor XR] 75 mg capsule,extended release 24hr 75 mg PO QAM Qty: 30 1RF ibuprofen 200 mg Tablet 400 mg PO Q6H PRN (Reason: Pain) cetirizine [Zyrtec] 10 mg tablet 10 mg PO DAILY PRN (Reason: Allergic Symptoms) Discharge Orders: Discharge ED (Routine); Ordered 07/05/24 Ordered By: Saad Lehman Patient Instructions: Post Concussion Syndrome (ED) Activity Restrictions/Additional Instructions: See attached patient instructions for further education. Please have someone monitor you for the next 24 hours. You may likely have a concussion, you may have symptoms up to 3 weeks of vomiting, dizziness, minor confusion, amongst other symptoms. Please return with any severe vomiting, severe lethargy, decreased respiratory drive, or other major symptoms. Coding Level of Care Code ED Director Of Testing for Nish Stapleton
== END 2024-07-05 19:03 | disposition home or self-care (01) ==
PROVIDERS: Emergency Provider Physician Assistant
DX: F07.81 Postconcussional syndrome (principal); S09.8XXA Other specified injuries of head, initial encounter; X58.XXXA Exposure to other specified factors, initial encounter
CPT/HCPCS: 99283

== ENCOUNTER 2024-07-06 03:55 | Inpatient (IN) | payer MEDICAID, SELFPAY ==
[2024-07-06] VITALS (141 sets, daily range): BP systolic 104–172; BP diastolic 53–102; PULSE 76–110; RESP 12–28; TEMP 36.5–36.6; O2SAT 93–100; BMI 32.5; BMI 31.4
--- NOTE | 2024-07-06 04:01 | ECG_ITS ---
[facility] Test Date: 2024-07-06 Pat Name: Parth Newman Department: Room: Gender: Male [employer] Supervisor: : 2000 Requested By: Thomas Alicea Order Number: [id number] Brenden MD: Chang Russell M.D. Measurements Intervals [place] Rate: 107 P: 35 DE: 141 QRS: 56 QRSD: 104 T: 28 QT: 347 QTc: 465 Interpretive Statements SINUS TACHYCARDIA NONSPECIFIC ST & T-WAVE ABNORMALITY Compared to ECG 03/01/2024 08:01:12 Sinus rhythm no longer present T-wave abnormality still present Electronically Signed On 07-08-2024 20:23:14 ASSISTANT FITNESS MANAGER by Chang Russell M.D. [email or web address]
--- NOTE | 2024-07-06 04:07 | XRR_ITS ---
PROCEDURE INFORMATION: Exam: XR Chest Exam date and time: 07/06/2024 4:07 AM Age: 23 years old Clinical indication: Device placement; Ett placement (vent status); Prior surgery; Surgery date: 6+ months; Surgery type: Clavicular fixation; Patient HX: Check S/P et and og placement. ; Additional info: Intubation TECHNIQUE: Imaging protocol: Radiologic exam of the chest. Views: 1 view. COMPARISON: CT abdomen pelvis w con* [id number] 05/31/2024 12:26 AM FINDINGS: Tubes, catheters and devices: An endotracheal tube is placed with its tip 4.6 cm from the nora. An orogastric tube is placed with its tip in the proximal stomach. EKG leads overlie the chest. Lungs: There are patchy perihilar opacity seen on the left, findings could represent atelectasis although a left-sided bronchitis and/pneumonitis cannot be excluded. Pleural spaces: Unremarkable. No pleural effusion. No pneumothorax. Heart/Mediastinum: Unremarkable. No cardiomegaly. Bones/joints: Unremarkable. XR/XR chest 1V portable [id number] IMPRESSION: 1. Endotracheal tube tip 4.6 cm from nora 2. Orogastric tube tip in proximal stomach 3. Patchy left perihilar opacities may represent atelectasis versus bronchitis and or pneumonitis.
--- NOTE | 2024-07-06 04:10 | PC.NURSE ---
Poison Control notified of overdose on EMS alert of incoming pt. Recommendations given to MD. Poison control faxed information sheet to .
[2024-07-06] MEDS: succinylcholine 20 mg/mL SDV 10mL 100 MG IVP (04:12)
[2024-07-06] MEDS: etomidate 2 mg/mL INJ SDV 10 mL 20 MG IVP ×2 (04:12→04:15)
[2024-07-06] MEDS: fentaNYL 1,000 MCG/100 ML BAG 2.5 MCG IV (04:15)
[2024-07-06] MEDS: midazolam hcl 100 MG/100 ML BAG IV (04:16)
--- NOTE | 2024-07-06 04:22 | ED_ITS ---
HPI - Overdose 2 General: Chief Complaint: Overdose Stated Complaint: OD Time Seen by Provider: 07/06/24 04:15 Source: EMS Mode of arrival: EMS Limitations: altered mental status History of Present Illness: Patient brought in by EMS for overdose of Seroquel. Supposedly patient took 20 tablets of 400 mg each of Seroquel for a total of 8 g. They said that he told them that he was overwhelmed with life. Patient was only minimally responsive to painful stimuli with sonorous respirations. It was not felt like he could adequately keep his airway intact. Related Data Home Medications Medication Instructions Recorded Confirmed ibuprofen 200 mg tablet 400 mg PO Q6H PRN Pain 11/18/23 06/25/24 cetirizine 10 mg tablet (Zyrtec) 10 mg PO DAILY PRN Allergic 03/21/24 06/25/24 Symptoms Previous Rx's Medication Instructions Recorded buspirone 15 mg tablet 15 mg PO TID 30 days #90 tabs 06/20/24 lithium carbonate 300 mg capsule 300 mg PO BID 30 days #60 caps 06/20/24 quetiapine 400 mg tablet (Seroquel) 400 mg PO 2100 #30 tabs 07/01/24 venlafaxine 150 mg 150 mg PO DAILY #30 caps 07/01/24 capsule,extended release 24 hr venlafaxine 75 mg capsule,extended 75 mg PO QAM #30 caps 07/01/24 release 24 hr (Effexor XR) Allergies Allergy/AdvReac Type Severity Reaction Status Date / Time No Known Allergies Allergy Verified 06/25/24 18:43 Review of Systems 2 General: Reports: ROS unobtainable due to mental status PFS ED 2 PFSH: Medical History Psychiatric care History of OCD (obsessive compulsive disorder) Depression Social History Smoking and tobacco/nicotine status: unknown if used tobacco/nicotine Physical Exam 2 Const: OTHER: Minimally responsive to painful stimuli's, sonorous respirations, patient was felt not to be able to maintain his own airway. Patient was intubated shortly after arrival. HENMT: COMMON NORMALS: normocephalic, atraumatic, external ears normal, Normal external nose present, moist oral mucous membranes and oropharynx normal HEAD & SCALP: normocephalic and atraumatic NOSE: Normal external nose present E XTERNAL EAR: Yes external ears normal Eye: COMMON NORMALS: Equal, round and reactive pupils present, EOMs intact bilaterally, conjunctivae normal and no scleral icterus CONJUNCTIVA: Yes conjunctivae normal PUPIL: Yes Equal, round and reactive pupils present Neck/C-Spine: COMMON NORMALS: no JVD Chest: COMMONS NORMALS: normal inspection of the chest and normal palpation of entire chest wall Resp: COMMON NORMALS: clear to auscultation bilaterally AUSCULTATION: clear to auscultation bilaterally OTHER: Sonorous respirations Cardio: COMMON NORMALS: no JVD, regular rhythm, S1 normal heart sound present, S2 normal heart sound present, No gallops present (Cardio), No clicks present (Cardio), No murmurs present (Cardio) and No rub (Cardio); negative for regular rate (Mildly tachycardic) RATE: abnormal rate (Mildly tachycardic) RHYTHM: regular rhythm HEART SOUNDS: S1 normal heart sound present and S2 normal heart sound present GI: COMMON NORMALS: Normal to inspection, nondistended, normoactive bowel sounds present, Soft to palpation, non-tender, No hepatosplenomegaly present and no masses PALPATION: Yes Soft to palpation and Yes No hepatosplenomegaly present Procedures Intubation Time out performed: Yes sedative: Etomidate Mg Given: 20 paralytic: Succinylcholine Mg Given: 100 Laryngoscope: fiber optic video scope ET Tube Size: 8 Tube Secured Depth (cm): 23 Tube Secured Location: teeth Tube Placement Confirmation: visualized tube passing through cords, equal breath sounds bilaterally and no breath sounds over epigastrium Patient Tolerated Procedure: well Additional Comments: first attempt was successful however balloon would not stay inflated and was thought to have been punctured or defective. This tube was removed and second tube was inserted 8-0, 23 cm at the teeth, balloon inflated and maintained inflation adequately. No other complications. Course 2 Vital Signs: Vital signs: Vital Signs Temperature 97.7 F 07/06/24 12:40 Pulse Rate 87 07/06/24 12:40 Respiratory Rate 14 07/06/24 11:38 Blood Pressure 126/69 07/06/24 12:40 Pulse Oximetry 99 07/06/24 12:40 Oxygen Delivery Me thod Mechanical Ventil ation 07/06/24 12:40 Fraction of Inspir ed Oxygen 30 07/06/24 11:38 MDM - Overdose Medical Decision Making Patient upon arrival was not alert and minimally responsive to painful stimuli. It is felt that he could not keep his airway open dependently, therefore he was electively intubated and sedated. Poison control was contacted. Discussed this case with Dr. Garcia who agreed to take the patient to ICU as long as a head CT was negative. Medical Records I reviewed the patient's medical records. Lab Data I reviewed the patient's lab results. 07/06/24 04:42 07/06/24 04:42 Radiology Impressions Chest X-Ray 07/06/24 04:07 IMPRESSION: 1. Endotracheal tube tip 4.6 cm from nora 2. Orogastric tube tip in proximal stomach 3. Patchy left perihilar opacities may represent atelectasis versus bronchitis and or pneumonitis. Head CT 07/06/24 05:10 IMPRESSION: No acute intracranial abnormality. Laboratory Results WBC 6.83 10^3/uL (3.29-11.43) 07/06/24 04:42 RBC 4.18 10^6/uL (3.85-5.65) 07/06/24 04:42 Hgb 12.60 g/dL (11.27-16.99) 07/06/24 04:42 Hct 38.1 % (37-53) 07/06/24 04:42 MCV 91.1 fl (82-101) 07/06/24 04:42 MCH 30.1 pg (27-33) 07/06/24 04:42 MCHC 33.1 g/dL (30-55) 07/06/24 04:42 RDW 13.0 % (12.1-15.1) 07/06/24 04:42 Plt Count 240 10^3/cmm (157-399) 07/06/24 04:42 MPV 8.9 fL (7.4-10.4) 07/06/24 04:42 Neut % (Auto) 69.2 % 07/06/24 04:42 Lymph % (Auto) 19.9 % 07/06/24 04:42 [place] % (Auto) 9.2 % 07/06/24 04:42 Eos % (Auto) 1.0 % 07/06/24 04:42 Baso % (Auto) 0.1 % 07/06/24 04:42 Neut # (Auto) 4.72 10^3/uL (1.8-7.7) 07/06/24 04:42 Lymph # (Auto) 1.4 10^3/uL (0.8-4.8) 07/06/24 04:42 [place] # (Auto) 0.6 10^3/uL (0.2-0.9) 07/06/24 04:42 Eos # (Auto) 0.1 10^3/uL (0.0-0.8) 07/06/24 04:42 Baso # (Auto) 0.0 10^3/uL (0.0-0.1) 07/06/24 04:42 Nucleated RBC % (auto) 0 % 07/06/24 04:42 Nucleated RBCs # 0.0 /100WBC 07/06/24 04:42 Specimen Type Arterial 07/06/24 04:44 Sample Site Brachial, right 07/06/24 04:44 ABG pH 7.32 (7.35-7.45) L 07/06/24 04:44 ABG pCO2 45.0 mmHg (35-45) 07/06/24 04:44 ABG pO2 113.0 mmHg (80.0-100.0) H 07/06/24 04:44 ABG PO2/FiO2 Ratio 282 07/06/24 04:44 ABG HCO3 23.0 mmol/L (22-26) 07/06/24 04:44 ABG O2 Saturation 98.6 07/06/24 04:44 ABG Base Excess -3.2 mmol/L (-2.0-2.0) L 07/06/24 04:44 Artur Test N/a 07/06/24 04:44 A-a O2 Gradient 15.6 mmHg (5-10) H 07/06/24 04:44 Hematocrit 39.5 % (42-52) L 07/06/24 04:44 Hgb O2 Saturation 93.5 % (95-100) L 07/06/24 04:44 Carboxyhemoglobin 4.7 %THgb (0.4-20.1) 07/06/24 04:44 Methemoglobin 0.6 % (0.4-1.5) 07/06/24 04:44 Total Hemoglobin 12.9 g/dL (14-18) L 07/06/24 04:44 Sodium 139.0 mmol/L (131-143) 07/06/24 04:44 Potassium 3.3 mmol/L (3.5-5.0) L 07/06/24 04:44 Glucose 129.0 mg/dL (70-115) H 07/06/24 04:44 Ionized Calcium 1.2 mmol/L (1.1-1.4) 07/06/24 04:44 O2 Delivery Device Vent 07/06/24 04:44 FiO2 40.0 % 07/06/24 04:44 Tidal Volume 0.45 07/06/24 04:44 PEEP 5.0 cmH20 07/06/24 04:44 Poll Clerk ID [place] 07/06/24 04:44 Sodium 137 mmol/L (136-145) 07/06/24 04:42 Potassium 3.7 mmol/L (3.5-5.1) 07/06/24 04:42 Chloride 104 mmol/L (98-107) 07/06/24 04:42 Carbon Dioxide 22 mmol/L (22-29) 07/06/24 04:42 Anion Gap 14.7 (5-19) 07/06/24 04:42 BUN 12 mg/dL (6-20) 07/06/24 04:42 Creatinine 1.0 mg/dL (0.7-1.2) 07/06/24 04:42 GFR Calculation 94.3 mL/min (90-130) 07/06/24 04:42 Glucose 143 mg/dL (65-115) H 07/06/24 04:42 Estimat Average Glucose 103 07/06/24 04:42 Hemoglobin A1c 5.2 % (4.0-6.0) 07/06/24 04:42 Calculated Osmolality 286 mOsm/kg (285-295) 07/06/24 04:42 Lactic Acid 2.1 mmol/L (0.5-2.2) 07/06/24 04:42 Calcium 8.4 mg/dL (8.5-10.5) L 07/06/24 04:42 Magnesium 2.3 mg/dL (1.7-2.3) 07/06/24 04:42 Total Bilirubin 0.2 mg/dL (0.15-1.2) 07/06/24 04:42 AST 24 U/L (0-40) 07/06/24 04:42 ALT 20 U/L (0-41) 07/06/24 04:42 Alkaline Phosphatase 96 U/L (40-130) 07/06/24 04:42 Troponin T Baseline < 6 ng/L (0-15) 07/06/24 04:42 Total Protein 6.1 g/dL (6.6-8.7) L 07/06/24 04:42 Albumin 4.1 g/dL (3.5-5.2) 07/06/24 04:42 Globulin 2.0 g/dL (1.3-4.6) 07/06/24 04:42 Urine Color Yellow (Yellow) 07/06/24 04:29 Urine Appearance Clear (CLEAR) 07/06/24 04:29 Urine pH 5.0 (5-7) 07/06/24 04:29 Ur Specific [place] 1.022 (1.005-1.030) 07/06/24 04:29 Urine Protein Negative (Negative) 07/06/24 04:29 Urine Glucose (UA) Negative (Normal) 07/06/24 04:29 Urine Ketones Trace (Negative) 07/06/24 04:29 Urine Blood Negative (Negative) 07/06/24 04:29 Urine Nitrate Negative (Negative) 07/06/24 04:29 Urine Bilirubin Negative (Negative) 07/06/24 04:29 Urine Urobilinogen 0.2 mg/dL (Negative) 07/06/24 04:29 Ur Leukocyte Esterase Negative (Negative) 07/06/24 04:29 Urine RBC 0-2 /hpf (0-2) 07/06/24 04:29 Urine WBC 0-5 /hpf (0-5) 07/06/24 04:29 Ur Squamous Epith Cells 0-5 /hpf (0-5) 07/06/24 04:29 Amorphous Sediment Not Reportable 07/06/24 04:29 Urine Bacteria None seen /hpf (NONE) 07/06/24 04:29 Hyaline Casts 13.63 /lpf 07/06/24 04:29 Urine Mucus 1+ /hpf 07/06/24 04:29 Salicylates < 0.3 mg/dL (3-10) L 07/06/24 04:42 Urine Opiates Screen Negative ng/mL (Negative) 07/06/24 04:29 Acetaminophen < 5.0 ug/mL (10-30) L 07/06/24 04:42 Ur Barbiturates Screen Negative ng/mL (Negative) 07/06/24 04:29 Ur Phencyclidine Scrn Negative ng/mL (Negative) 07/06/24 04:29 Ur Amphetamines Screen Negative ng/mL (Negative) 07/06/24 04:29 U Benzodiazepines Scrn Negative ng/mL (Negative) 07/06/24 04:29 [place] 1.0 mmol/L (0.6-1.2) 07/06/24 04:42 Urine Cocaine Screen Negative ng/mL (Negative) 07/06/24 04:29 U Marijuana (THC) Screen Positive ng/mL (Negative) H 07/06/24 04:29 Ethyl Alcohol < 10 mg/dL (0-10) 07/06/24 04:42 All radiology interpretation(s) finalized by discharge Discharge Plan Discharge Patient Disposition: Admitted As Inpatient Admit Provider: Cholo Garcia Clinical Impression: Drug overdose Condition: Stable Coding Level of Care Code ED Metal Spinner for Nish Stapleton
--- NOTE | 2024-07-06 04:36 | PC.NURSE ---
0410 20 etomidate and 100 succs given for intubation. pt intubated with 8.0 ET tube measuring 23 at the teeth @ 0412. ET tube found to be defective (cuff not staying inflated). Second dose of 20 of etomidate given. Pt re-intubated with new 8.0 ET tube measuring 23 at the teeth without difficulty @ 0415. At no point did pt O2 saturation drop below 95%. placement verified by color change/auscultation/xray.
[2024-07-06 04:39] LABS: Bilirubin Urine Negative (Negative); Blood Urine Negative (Negative); Glucose Urine UA Negative (Normal); Ketones Urine Trace (Negative); Leukocyte Esterase Urine Negative (Negative); Nitrate Urine Negative (Negative); Protein Urine Negative (Negative); Specific Gravity, Urine 1.022 (1.005-1.030); Urine Appearance Clear (CLEAR); Urine Color Yellow (Yellow); Urobilinogen Urine 0.2 mg/dL (Negative)
[2024-07-06 04:43] LABS: Add Urine Microscopic? YES; Bacteria Urine None Seen /hpf; Hyaline Casts Urine 13.63 /lpf; RBC Urine 0-2 /hpf (0-2); Squamous Epithelial Cell Urine 0-5 /hpf (0-5); Universal Test for UA Present (0); WBC Urine 0-5 /hpf (0-5)
[2024-07-06 04:48] LABS: Basophils % 0.1 %; Eosinophils # 0.1 10^3/uL (0.0-0.8); Hematocrit 38.1 % (37-53); Lymphocytes # 1.4 10^3/uL (0.8-4.8); Lymphocytes % 19.9 %; Mean Corpuscular HGB Conc 33.1 g/dL (30-55); Mean Corpuscular Hemoglobin 30.1 pg (27-33); Mean Corpuscular Volume 91.1 fl (82-101); Mean Platelet Volume 8.9 fL (7.4-10.4); Monocytes # 0.6 10^3/uL (0.2-0.9); Monocytes % 9.2 %; Neutrophils # 4.72 10^3/uL (1.8-7.7); Neutrophils % 69.2 %; Nucleated Red Blood Cells % 0 %; Platelet Count 240 10^3/cmm (157-399); Red Blood Count 4.18 10^6/uL (3.85-5.65); White Blood Count 6.83 10^3/uL (3.29-11.43)
[2024-07-06 04:56] LABS: ABG PH Result 7.32 (7.35-7.45); Alveolar-Arterial Oxygen Gradi 15.6 mmHg (5-10); Arterial Blood Gas Hematocrit 39.5 % (42-52); Base Excess ABG -3.2 mmol/L (-2.0-2.0); Blood Gas Operator Identificat SAM; Blood Gas Sample Site Brachial, right; Blood Gas Sample Type Arterial; Blood Gas Tidal Volume 0.45; Carboxyhemoglobin 4.7 %THgb (0.4-20.1); HGB O2 Sat 93.5 % (95-100); Ionized Calcium Level - ABG 1.2 mmol/L (1.1-1.4); Methemoglobin 0.6 % (0.4-1.5); Oxygen Device VENT; Oxygen Saturation ABG 98.6; PO2 FiO2 Ratio Arterial Blood 282; Potassium Level - ABG 3.3 mmol/L (3.5-5.0); Total Hemoglobin 12.9 g/dL (14-18)
[2024-07-06 05:00] LABS: Add Urine Culture? No; Mucus Urine 1+ /hpf
[2024-07-06 05:05] LABS: Troponin(5th) Baseline < 6 ng/L (0-15)
[2024-07-06 05:08] LABS: Alanine Aminotransferase 20 U/L (0-41); Albumin Level 4.1 g/dL (3.5-5.2); Alkaline Phosphatase 96 U/L (40-130); Blood Urea Nitrogen 12 mg/dL (6-20); Calcium 8.4 mg/dL (8.5-10.5); Carbon Dioxide 22 mmol/L (22-29); Chloride 104 mmol/L (98-107); Creatinine Clr Calc Pharmacy 136.0831; Glomerular Filtration Rate 94.3 mL/min (90-130); Glucose 143 mg/dL (65-115); Magnesium 2.3 mg/dL (1.7-2.3); Osmolality Calculated 286 mOsm/kg (285-295); Sodium 137 mmol/L (136-145); Total Bilirubin 0.2 mg/dL (0.15-1.2); Total Protein 6.1 g/dL (6.6-8.7)
[2024-07-06 05:09] LABS: Lactic Sepsis W/Reflex 2.1 mmol/L (0.5-2.2)
[2024-07-06 05:10] LABS: Acetaminophen < 5.0 ug/mL (10-30); Alcohol Level < 10 mg/dL (0-10); Anion Gap 14.7 (5-19); Aspartate Amino Transferase 24 U/L (0-40); Potassium 3.7 mmol/L (3.5-5.1); Salicylate < 0.3 mg/dL (3-10)
--- NOTE | 2024-07-06 05:10 | CTR_ITS ---
PROCEDURE INFORMATION: Exam: CT Head Without Contrast Exam date and time: 07/06/2024 5:35 AM Age: 23 years old Clinical indication: Patient HX: EMS arrival for drug overdose. Intubated. ; Additional info: AMS, overdose TECHNIQUE: Imaging protocol: Computed tomography of the head without contrast. Radiation optimization: All CT scans at this facility use at least one of these dose optimization techniques: automated exposure control; mA and/or kV adjustment per patient size (includes targeted exams where dose is matched to clinical indication); or iterative reconstruction. COMPARISON: CT head wo con* [id number] 02/21/2024 4:08 PM RADIATION DOSE METRICS: Total DLP (mGy-cm): 1143.13 FINDINGS: Brain: Normal. No hemorrhage. Unremarkable white matter. No mass effect. Cerebral ventricles: No ventriculomegaly. Paranasal sinuses: Visualized sinuses are unremarkable. No fluid levels. Mastoid air cells: Visualized mastoid air cells are well aerated. Bones: Unremarkable. No acute fracture. Soft tissues: Unremarkable. CT/CT head wo con* [id number] IMPRESSION: No acute intracranial abnormality.
--- NOTE | 2024-07-06 05:59 | PC.NURSE ---
Pt taken to CT with RN, tech, RT. Pt tolerated well. On arrival back to ER, incontinence care provided. Pt in gown and on appropriate monitoring.
--- NOTE | 2024-07-06 06:17 | P.HP_ITS ---
Providers/Chief Complaint 2 Chief Complaint: OD History of Present Illness Parth Newman is a 23 year old male with a past medical history of bipolar disorder with depression, panic attacks, obstructive compulsive disorder, PTSD, suicidal ideation, who presents [facility] due to Concern for intentional drug overdose. Patient was brought in by EMS for overdose of Seroquel, supposedly patient had taken 20 tablets of 400 mg of Seroquel totaling 8 g. EMS providers had told staff that patient had said he was overwhelmed with life, concerns for suicide attempt. On arrival he was been responsive to painful stimuli, concerns for airway was intubated for airway protection. Currently patient is intubated, sedated on mechanical ventilation. Poison control has been contacted. In the evening of 07/05/2024, he did come to the emergency room as he had stood up and bumped his head on a tree branch, knocking him to the ground, no apparent loss of consciousness but did throw up after, there was concern for him having some amnesia to the event, called EMS multiple times despite the moderate to be on their way to pick him up, reported feeling drowsy, no reported focal neurologic deficits. Review of Systems 2 General: Reports: ROS unobtainable due to endotracheal tube Medications/Allergies Home Medications Medication Instructions Recorded Confirmed Last Taken Type ibuprofen 200 mg tablet 400 mg PO Q6H PRN Pain 11/18/23 06/25/24 Unknown History cetirizine 10 mg tablet (Zyrtec) 10 mg PO DAILY PRN Allergic 03/21/24 06/25/24 Unknown History Symptoms buspirone 15 mg tablet 15 mg PO TID 30 days #90 tabs 06/20/24 06/25/24 Unknown Rx lithium carbonate 300 mg capsule 300 mg PO BID 30 days #60 caps 06/20/24 06/25/24 Unknown Rx quetiapine 400 mg tablet (Seroquel) 400 mg PO 2100 #30 tabs 07/01/24 Unknown Rx venlafaxine 150 mg 150 mg PO DAILY #30 caps 07/01/24 Unknown Rx capsule,extended release 24 hr venlafaxine 75 mg capsule,extended 75 mg PO QAM #30 caps 07/01/24 Unknown Rx release 24 hr (Effexor XR) Allergies Allergy/AdvReac Type Severity Reaction Status Date / Time No Known Allergies Allergy Verified 06/25/24 18:43 PFSH Acute 2 PFSH: Medical History Psychiatric care History of OCD (obsessive compulsive disorder) Depression Social History Smoking and tobacco/nicotine status: unknown if used tobacco/nicotine Vitals/I&O/Wt Last Vital Signs Pulse 108 H 07/06/24 06:06 Resp 16 07/06/24 06:06 BP 157/92 07/06/24 06:06 Pulse Ox 99 07/06/24 06:06 FiO2 40 07/06/24 05:47 07/05/24 07/05/24 07/06/24 14:59 22:59 06:59 Intake Total 19.882 / 19.882 Balance 19.882 / 19.882 Weight last 48 hrs Weight 99.79 kg Physical Exam 2 Const: COMMON NORMALS: no acute distress OTHER: Intubated, sedated on mechanical ventilation HENMT: COMMON NORMALS: normocephalic HEAD & SCALP: normocephalic Eye: OTHER: Pupils are reactive to light, Neck/C-Spine: COMMON NORMALS: no JVD Resp: COMMON NORMALS: normal respiratory effort, No retractions, No use of accessory muscles and clear to auscultation bilaterally AUSCULTATION: clear to auscultation bilaterally Cardio: COMMON NORMALS: no JVD, regular rate, regular rhythm, S1 normal heart sound present and S2 normal heart sound present RATE: regular rate RHYTHM: regular rhythm HEART SOUNDS: S1 normal heart sound present and S2 normal heart sound present GI: COMMON NORMALS: Normal to inspection, nondistended, normoactive bowel sounds present, Soft to palpation and non-tender Extremity: COMMON NORMALS: no calf tenderness and no pedal edema Skin: NARRATIVE SKIN EXAM: Multiple superficial skin lacerations bilateral arms Urinary Catheter Management: Perez: Cath Placed During This Visit: yes Urinary Catheter Date of Insertion: 07/06/24 Urinary Catheter Time of Insertion: 04:21 Data 07/06/24 04:42 07/06/24 04:42 A&P Assessment and plan (1) Intentional drug overdose: (2) Suicide attempt: (3) Acute respiratory failure: Plan Intentional drug overdose, suicide attempt -Drug-overdose of Seroquel took about 8 g of Seroquel # Is also on Effexor, lithium, BuSpar possible overdose of these medications in addition ? Although lithium levels are within normal limits # Intubated for airway protection, currently intubated, sedated ? Poison control contacted ? Plan ? Monitor in ICU # Minimize FiO2, -Minimize tidal volume # Propofol for sedation # Fentanyl for sedation # Neurochecks, monitor serum sodium, monitor telemetry monitoring -Monitor EKGs every4 4 hours # Monitor for fevers # Follow-up with poison control ? Full code # Lovenox for DVT prophylaxis -Due to concerns for closed head injury, CT head ordered -Multiple superficial skin lacerations bilateral arms, monitor -Once neurologic status improves, once patient to be extubated he will need psychiatric evaluation Attestations 2 Medical Necessity Statement*: Patient requires hospitalization for intentional drug overdose, suicide attempt, currently intubated, sedated on mechanical ventilation for airway protection Coding Level of Care Code Critical Care >/= 30 minutes Critical care time (in minutes): 40 The high probability of a clinically significant, sudden or life threatening deterioration, as referenced in this documentation, required my full and direct attention, intervention and personal management. The critical care time shown is in addition to time spent performing any reported separately billable procedures and includes the following: [x] Data and vital sign review and interpretation [x ] Patient assessment, examination and intervention [x] Medication orders and management [x] Patient/Family updates as able [x] Care Coordination and Documentation. Diagnoses Intentional drug overdose T50.902A Suicide attempt T14.91XA Acute respiratory failure J96.00
--- NOTE | 2024-07-06 06:21 | ECG_ITS ---
[facility] Date: 2024-07-06 Pat Name: Parth Newman Department: Room: [facility] Gender: Male Cartography Supervisor: : 2000 Requested By: Thomas Alicea Order Number: [id number] Brenden MD: Chang Russell M.D. Measurements Intervals [place] Rate: 104 P: 45 [place]: 170 QRS: 58 QRSD: 103 T: -72 QT: 339 QTc: 447 Interpretive Statements [address]US T[address] DEVIATION AND MODERATE T-WAVE ABNORMALITY, CONSIDER LATERAL ISCHEMIA [-0.1+ mV T-WAVE IN I/aVL/V5/V6] ST DEVIATION AND MODERATE T-WAVE ABNORMALITY, CONSIDER INFERIOR ISCHEMIA [-0.1+ mV T-WAVE IN II/aVF] Compared to ECG 07/06/2024 04:01:07 Possible ischemia now present T-wave abnormality still present Electronically Signed On 07-08-2024 20:35:20 QUALITY CHECKER by Chang Russell M.D. [id number]
[2024-07-06 06:33] LABS: Reflex Lactate Order REFLEX LACTIC ORDERD
--- NOTE | 2024-07-06 06:40 | PC.NURSE ---
Updated mother, Aly, on plan of care.
--- NOTE | 2024-07-06 06:42 | PC.NURSE ---
Late entry note. Pt had been given 1LNS enroute to ER. This was infused on arrival to ER.
[2024-07-06 07:22] LABS: Amphetamines Screen Urine Negative (Negative); Barbiturates Screen Urine Negative (Negative); Benzodiazepines Screen Urine Negative (Negative); Cocaine Screen Urine Negative (Negative); Opiate Screen Urine Negative (Negative); PCP Screen Urine Negative (Negative); THC Screen Urine Positive (Negative)
[2024-07-06 07:39] LABS: C Reactive Protein 7.5 mg/L (0.0-4.9); Lactic Acid level (Lactate) 0.9 mmol/L (0.5-2.2)
[2024-07-06 07:40] LABS: Troponin 5 2HR 7.57 ng/L (0-15); Troponin 5 2HR Delta 1.57001 ABS# (0-10)
--- NOTE | 2024-07-06 07:46 | ECG_ITS ---
[facility] Date: 2024-07-06 Pat Name: Parth Newman Department: Room: [facility]02 Gender: Male Blood Bank Calendar Control Clerk: : 2000 Requested By: Cholo Garcia Order Number: [id number] Wilcox MD: Chang Russell M.D. Measurements Intervals [place] Rate: 99 P: 44 [place]: 158 QRS: 58 QRSD: 104 T: -49 QT: 339 QTc: 436 Interpretive Statements SINUS RHYTHM MODERATE T-WAVE ABNORMALITY, CONSIDER ANTEROLATERAL ISCHEMIA [-0.1+ mV T-WAVE IN V3-V6] Compared to ECG 07/06/2024 06:23:20 Sinus tachycardia no longer present T-wave abnormality still present Possible ischemia still present Electronically Signed On 07-08-2024 20:35:03 TRAFFIC SURVEY TECHNICIAN by Chang Russell M.D. [id number]
--- NOTE | 2024-07-06 07:50 | PC.NURSE ---
Patient arrived to ICU 2 at 0730 via stretcher with RT and PICKLE PROCESSOR, Fentanyl at 125mcg, Versed at 6, pink fluid in OG, see charted vitals and assessment.
--- NOTE | 2024-07-06 08:01 | PC.NURSE ---
Belongings at beside include Grinch pajama pants, Cigarettes, black crocks shoes, a Samsung cellphone. All placed in patient locker.
[2024-07-06] MEDS: pantoprazole 40 mg SDV IVP (08:26)
[2024-07-06] MEDS: sodium chloride 0.9% 1,000 ML 75 ML IV ×2 (08:26→21:25)
[2024-07-06 08:37] LABS: Estmated Average Glucose 103; Hemoglobin A1C 5.2 % (4.0-6.0)
[2024-07-06 08:45] LABS: Chol HDL Ratio 3.29 mg/dL (1.0-5.00); Cholesterol 112 mg/dL (0-200); HDL Cholesterol 34 mg/dL (60-100); LDL Cholesterol Calculated 46 mg/dL (50-129); LDL HDL Ratio 1.35 RATIO (0.00-3.22); Thyroid Stimulating Hormone 3.98 uIU/mL (0.27-4.20); Triglycerides 159 mg/dL (0-150)
--- NOTE | 2024-07-06 08:48 | PC.NURSE ---
Addendum entered by ERIC Michael RN 07/07/24 15:53: witness waste Original Note: ERIC Michael RN, witnessed waste of remaining midazolam.
[2024-07-06 10:26] LABS: ABG PH Result 7.32 (7.35-7.45); Alveolar-Arterial Oxygen Gradi 5.3 mmHg (5-10); Base Excess ABG -2.9 mmol/L (-2.0-2.0); Blood Gas Allen Test Pos; Blood Gas Operator Identificat GD; Blood Gas Sample Site Radial, left; Blood Gas Sample Type Arterial; Blood Gas Tidal Volume 0.45; HCO3 ABG 23.4 mmol/L (22-26); HGB O2 Sat 95.6 % (95-100); Ionized Calcium Level - ABG 1.2 mmol/L (1.1-1.4); Methemoglobin 1.3 % (0.4-1.5); Oxygen Device VENT; Oxygen Saturation ABG 98.8; PO2 FiO2 Ratio Arterial Blood 396; Potassium Level - ABG 3.3 mmol/L (3.5-5.0); Total Hemoglobin 13.1 g/dL (14-18)
[2024-07-06] MEDS: fentaNYL 1,000 MCG/100 ML BAG 12.5 MCG IV (10:27)
--- NOTE | 2024-07-06 11:30 | ECG_ITS ---
[facility] Test Date: 2024-07-06 Pat Name: Parth Newman Department: Room: [facility] Gender: Male Border Inspector: : 2000 Requested By: Faith Randall Order Number: [id number] Brenden MD: Chang Russell M.D. Measurements Intervals [place] Rate: 87 P: 32 [place]: 158 QRS: 49 QRSD: 107 T: 18 QT: 329 QTc: 398 Interpretive Statements SINUS RHYTHM NONSPECIFIC T-WAVE ABNORMALITY Compared to ECG 07/06/2024 09:34:31 Possible ischemia no longer present T-wave abnormality still present Electronically Signed On 07-08-2024 20:34:11 DEVULCANIZER TENDER by Chang Russell M.D. [id number]
[2024-07-06 11:34] LABS: Troponin 5 6HR Delta 0.00001 ng/L (0-12)
--- NOTE | 2024-07-06 12:47 | PM.MISC ---
Miscellaneous Note Purpose of Documentation: Overnight labs and H&P reviewed. Patient currently on fentanyl 125 mics. Currently off propofol. Has a gag reflex. Does not follow commands as of now. CT head noted normal. Poison control recommends close lithium level monitoring. Ordered again for this evening and again with morning labs. No arrhythmias noted on EKGs. Continue telemetry monitoring, ICU care for acute overdose. His mother is currently at bedside. All updates given. ABG reviewed this morning, shows respiratory acidosis. Ventilator settings changed to increase tidal volume. Repeat gas this afternoon. Bicarb reviewed normal at 23.4.
[2024-07-06] MEDS: propofol 1,000 MG/100 ML INJ 2.99 MG IV (16:43)
[2024-07-06] MEDS: enoxaparin 40 mg/0.4 mL Syringe SUBCUT (17:01)
[2024-07-06] MEDS: fentaNYL 1,000 MCG/100 ML BAG 15 MCG IV (18:10)
[2024-07-06 18:54] LABS: Lithium 0.2 mmol/L (0.6-1.2)
--- NOTE | 2024-07-06 19:30 | ECG_ITS ---
[facility] Date: 2024-07-06 Pat Name: Parth Newman Department: Room: [facility]02 Gender: Male Site Coordinator: : 2000 Requested By: Faith Randall Order Number: [id number] Reading MD: Chang Russell M.D. Measurements Intervals [place] Rate: 82 P: 20 [place]: 160 QRS: 42 QRSD: 103 T: -5 QT: 340 QTc: 398 Interpretive Statements SINUS RHYTHM NONSPECIFIC T-WAVE ABNORMALITY Compared to ECG 07/06/2024 11:59:01 No significant changes Electronically Signed On 07-08-2024 20:32:47 THERAPIST by Chang Russell M.D. [id number]
--- NOTE | 2024-07-06 19:40 | PC.NURSE ---
Unable to assess NIH as patient is sedated.
--- NOTE | 2024-07-06 21:55 | PC.NURSE ---
Spoke with poison control who wanted a patient update. Discussed ECG information and current medications, no further recommendations tonight from poison control. They will call back in the morning for another update.
[2024-07-06] MEDS: propofol 1,000 MG/100 ML INJ 17.96 MG IV (22:05)
[2024-07-07] VITALS (51 sets, daily range): BP systolic 92–146; BP diastolic 47–75; PULSE 81–113; RESP 14–18; TEMP 36.3–37.8; O2SAT 87–99
[2024-07-07] MEDS: fentaNYL 1,000 MCG/100 ML BAG 17.5 MCG IV ×3 (00:18→21:17)
[2024-07-07] MEDS: propofol 1,000 MG/100 ML INJ 32.93 MG IV ×4 (01:25→18:27)
--- NOTE | 2024-07-07 02:00 | PC.NURSE ---
Patient to the time of this note has produced approximately 300mL of dark urine since 12:35 on 07/06/2024. Bladder scan preformed, only finding 4mL of retained urine. Dr. Garcia notified.
[2024-07-07] MEDS: chlorhexidine gluconate 4% Btl 118 mL 1 APPLIC TOPICAL (02:20)
--- NOTE | 2024-07-07 03:12 | PC.NURSE ---
With assistance, this nurse turned patient to change sheets and clean the patient's backside. Patient's oxygen desatted down to aprox. 58 quickly. 100% O2 delivered via mechanical vent, ventillator suctioning preformed twice with a small amount of phlegm removed, and patient repositioned to allow for better ventilation. Respiratory notified and responded promptly to the bedside to assess. Patient O2 returned to high 90's.
[2024-07-07] MEDS: ipratropium-albuterol 3 mL Neb INHALATION ×2 (03:46→07:26)
[2024-07-07 03:50] LABS: Basophils % 0.2 %; Eosinophils # 0.1 10^3/uL (0.0-0.8); Eosinophils % 1.9 %; Hematocrit 38.4 % (37-53); Lymphocytes # 1.4 10^3/uL (0.8-4.8); Lymphocytes % 21.5 %; Mean Corpuscular HGB Conc 32.6 g/dL (30-55); Mean Corpuscular Hemoglobin 30.3 pg (27-33); Mean Platelet Volume 8.7 fL (7.4-10.4); Monocytes # 0.5 10^3/uL (0.2-0.9); Monocytes % 8.4 %; Neutrophils # 4.26 10^3/uL (1.8-7.7); Neutrophils % 67.8 %; Nucleated Red Blood Cells % 0 %; Platelet Count 206 10^3/cmm (157-399); Red Blood Count 4.13 10^6/uL (3.85-5.65); Red Cell Distribution Width 13.4 % (12.1-15.1); White Blood Count 6.28 10^3/uL (3.29-11.43)
[2024-07-07 04:15] LABS: Alanine Aminotransferase 12 U/L (0-41); Albumin Level 3.6 g/dL (3.5-5.2); Alkaline Phosphatase 100 U/L (40-130); Anion Gap 11.9 (5-19); Aspartate Amino Transferase 20 U/L (0-40); Blood Urea Nitrogen 8 mg/dL (6-20); Calcium 8.1 mg/dL (8.5-10.5); Carbon Dioxide 22 mmol/L (22-29); Chloride 107 mmol/L (98-107); Creatinine Clr Calc Pharmacy 133.9841; Glomerular Filtration Rate 94.3 mL/min (90-130); Glucose 95 mg/dL (65-115); Osmolality Calculated 282 mOsm/kg (285-295); Potassium 3.9 mmol/L (3.5-5.1); Sodium 137 mmol/L (136-145); Total Bilirubin 0.2 mg/dL (0.15-1.2); Total Protein 5.6 g/dL (6.6-8.7)
[2024-07-07 04:21] LABS: ABG PCO2 44.4 mmHg (35-45); ABG PH Result 7.31 (7.35-7.45); Arterial Blood Gas Hematocrit 39.5 % (42-52); Base Excess ABG -3.7 mmol/L (-2.0-2.0); Blood Gas Sample Type Arterial; Carboxyhemoglobin 0.8 %THgb (0.4-20.1); HCO3 ABG 22.5 mmol/L (22-26); HGB O2 Sat 92.5 % (95-100); Ionized Calcium Level - ABG 1.2 mmol/L (1.1-1.4); Methemoglobin 1.3 % (0.4-1.5); Oxygen Saturation ABG 94.4; PO2 ABG 70.6 mmHg (80.0-100.0); Potassium Level - ABG 3.6 mmol/L (3.5-5.0); Total Hemoglobin 12.9 g/dL (14-18)
[2024-07-07 04:23] LABS: Alveolar-Arterial Oxygen Gradi 21.2 mmHg (5-10); Blood Gas Operator Identificat ED; Blood Gas Sample Site Brachial, left; Blood Gas Tidal Volume 0.52; Oxygen Device VENT; PO2 FiO2 Ratio Arterial Blood 176
[2024-07-07 04:28] LABS: Lithium 0.2 mmol/L (0.6-1.2)
--- NOTE | 2024-07-07 06:00 | XRR_ITS ---
PROCEDURE INFORMATION: Exam: XR Chest Exam date and time: 07/07/2024 6:19 AM Age: 23 years old Clinical indication: Prior surgery; Surgery date: 6+ months; Surgery type: Clavicular fixation; Patient HX: F/u resp failure. Intubated. TECHNIQUE: Imaging protocol: Radiologic exam of the chest. Views: 1 view. COMPARISON: CR (CHEST, ) 07/06/2024 4:07 AM FINDINGS: Lungs: Minimally increased density in the left retrocardiac region, atelectasis versus infiltrate. Pleural spaces: Unremarkable. No pleural effusion. No pneumothorax. Heart/Mediastinum: Stable life-support lines. Borderline cardiomegaly. Bones/joints: Unremarkable. XR/XR chest 1V portable [id number] IMPRESSION: No significant change.
[2024-07-07] MEDS: propofol 1,000 MG/100 ML INJ 29.94 MG IV ×2 (07:19→21:51)
[2024-07-07] MEDS: dexmedeTOMIDine 0.9 % NaCL 400 MCG/100 ML PREMIX IV (08:18)
[2024-07-07] MEDS: pantoprazole 40 mg SDV IVP (08:24)
[2024-07-07] MEDS: piperacillin-tazobactam 3.375 GM in sodium chloride 0.9% (plus) 50 ML IV ×2 (08:42→17:11)
[2024-07-07] MEDS: BuSPIRONE 10 mg Tablet 15 MG PO ×3 (08:42→21:07)
[2024-07-07] MEDS: venlafaxine 75 mg Tablet 150 MG PO (08:42)
[2024-07-07 10:27] LABS: MRSA PCR OZH (swab) NOT DETECTED (Negative)
[2024-07-07] MEDS: fentaNYL 1,000 MCG/100 ML BAG 20 MCG IV ×2 (10:45→15:40)
[2024-07-07 11:41] LABS: Glucose Point of Care 84 mg/dL (70-110)
[2024-07-07] MEDS: propofol 1,000 MG/100 ML INJ 35.92 MG IV ×2 (12:51→15:40)
[2024-07-07] MEDS: ipratropium 0.5 mg/2.5 mL Neb INHALATION ×3 (13:34→21:37)
[2024-07-07] MEDS: levalbuterol 0.63 mg/3 mL Neb INHALATION ×3 (13:34→21:37)
--- NOTE | 2024-07-07 15:00 | P.PN_ITS ---
Subjective 2 Subjective: Hospital course, labs appreciated. Seen with family at bedside. Earlier today morning patient was on 200 of fentanyl, propofol of 50. Patient was awake and thrashing in the bed after which she was started on Precedex and he is more calm. As per nursing staff overnight patient had 2 events of hypoxia when he had to be suctioned and a thick mucous plug was removed after which his saturations improved. Currently he is on 40% FiO2, tidal volume of 520, PEEP of 6. Appreciate ABG. Has remained hemodynamically stable. Tmax of 100 Fahrenheit earlier today morning. Vitals/I&O/Wt Last Vital Signs Temp 98.9 F 07/07/24 13:42 Pulse 105 H 07/07/24 13:37 Resp 18 07/07/24 13:37 BP 128/56 07/07/24 12:00 Pulse Ox 94 07/07/24 13:37 O2 Del Method Mechanical Ventilation 07/07/24 13:37 FiO2 40 07/07/24 13:37 07/07/24 07/07/24 07/07/24 06:59 14:59 22:59 Intake Total 450.880 / 1689.630 386.848 / 386.848 Output Total 450 / 850 500 / 500 Balance 0.880 / 839.630 -113.152 / -113.152 Weight last 48 hrs Weight 97.278 kg Weight 96.615 kg Weight 99.79 kg Physical Exam 2 Narrative: General: Intubated, sedated HEENT: PERRLA, pupils bilaterally equal and reactive Chest: Normal vesicular breath sounds, no added sounds, equal good air entry bilaterally CVS: S1-S2 regular, no murmurs, no tachycardia, no gallops, no rubs Abdomen: Soft, nontender, no organomegaly, bowel sounds present Neuro: No focal deficits, no facial deformity, Urinary Catheter Management: Perez: Cath Placed During This Visit: yes Reason for Continuing Indwelling Catheter: Accurate Measurement of Urinary Output in Critically Ill Patients Urinary Catheter Date of Insertion: 07/06/24 Urinary Catheter Time of Insertion: 04:21 Data 07/07/24 03:44 07/07/24 03:44 Micro: Microbiology 07/06/24 07:45 Gram Stain - Final Sputum - Endotracheal Tube Aspirate Sputum Culture - Preliminary 07/06/24 06:54 Blood Culture - Preliminary Blood NEGATIVE TO DATE 07/06/24 06:47 Blood Culture - Preliminary Blood NEGATIVE TO DATE A&P Assessment and plan (1) Intentional drug overdose: (2) Suicide attempt: (3) Acute respiratory failure: Plan Intentional drug overdose, suicide attempt: Drug overdose of Seroquel. Possibly took up to 8 g Seroquel. Patient is also on other medications including Effexor, BuSpar and lithium. Not sure if patient overdose on those medications as well. Appreciate recommendations from poison control. Monitor lithium levels. EKG daily for now. For QTc. Medication half-life of around 6 hours. Will consult psychiatry. Possible 96-hour hold once patient is extubated and transition to Neuropsych Unit once medically stable. Patient getting agitated on propofol and fentanyl maximum dose. Will add Precedex. Seems patient's takes buspirone 15 mg 3 times daily, Seroquel 400 mg nightly, Effexor to 25 mg daily along with lithium 300 mg twice daily. Restart home BuSpar 15 mg 3 times daily and Effexor at 150 mg daily. Will see if he can start Seroquel at a lower dose of 50 mg at bedtime. [place] level so far for subtherapeutic. Restart home dose of lithium carbonate 300 mg twice daily. Follow continue sedation with propofol, fentanyl and Precedex. Respiratory failure: Most likely in setting of overdose. Having episodes of mucous plugging. Repeat chest x-ray, ABG. Hold off on extubation for now. Check sputum culture. Follow-up blood culture. Start on IV Zosyn for now. Start on nebulization with Pulmicort twice daily, DuoNeb every 6 hour, Mucomyst every 6 hours and as needed. Plan to possibly extubate within next 24 to 48 hours. Full code N.p.o. Protonix OPD prophylaxis Lovenox for DVT prophylaxis Attestations 2 Medical Necessity Statement*: Requires further hospitalization for management of respiratory failure in setting of Seroquel overdose for suicide attempt as patient remains mechanically ventilated Critical Care Time: The high probability of a clinically significant, sudden or life threatening deterioration of the patient's [cardiac, Poison control, pulmonary] system(s) required my full and direct attention, intervention and personal management. The critical care time is as shown. This time is in addition to time spent performing any reported procedures but includes the following: [x] Data and vital sign review and interpretation [x] Patient assessment, examination and intervention [x] Documentation [x] Medication orders and management Critical Care Time (min): 70 Coding Level of Care Code Critical Care >/= 30 minutes Critical care time (in minutes): 70 The high probability of a clinically significant, sudden or life threatening deterioration, as referenced in this documentation, required my full and direct attention, intervention and personal management. The critical care time shown is in addition to time spent performing any reported separately billable procedures and includes the following: [x] Data and vital sign review and interpretation [x ] Patient assessment, examination and intervention [x] Medication orders and management [x] Patient/Family updates as able [x] Care Coordination and Documentation. Other Coding Information This patient has a high probability of clinically significant, sudden or life threatening deterioration of the patient's (neurological/pulmonary/cardiac/renal/ID/endocrine) systems required my full, direct attention, the highest level of physician preparedness for urgent intervention and personal management. I managed/supervised life or organ supporting interventions that required frequent physician assessment. I devoted my full attention in the ICU to the direct care of this patient for the period of time indicated above. Time I spent with family or surrogate(s) is included only if the patient was incapable of providing necessary information or participating in decision making. This time includes the following services provided: Telemetry review Mechanical Ventilation Hemodynamic interpretation, assessment and management Review and interpretation of CXR Review and interpretation of lab values Review and interpretation of microbiologic data and culture results Review of medications and administration Review and interpretation of Nutrition requirements and management Discussion of management with other consultants and services Clinical update to family members Diagnoses Intentional drug overdose T50.902A Suicide attempt T14.91XA Acute respiratory failure J96.00
[2024-07-07] MEDS: dexmedeTOMIDine 0.9 % NaCL 400 MCG/100 ML PREMIX 17.02 MCG IV ×2 (17:03→21:50)
[2024-07-07] MEDS: lithium carbonate 300 mg Capsule PO (17:11)
[2024-07-07] MEDS: enoxaparin 40 mg/0.4 mL Syringe SUBCUT (17:11)
[2024-07-07 18:04] LABS: Glucose Point of Care 91 mg/dL (70-110)
[2024-07-07] MEDS: quetiapine 25 mg Tablet 50 MG PO (21:08)
[2024-07-07] MEDS: acetylcysteine 200 mg/mL MDV 10 mL 100 MG INHALATION (21:37)
[2024-07-07] MEDS: budesonide 0.5 mg/2 mL Neb INHALATION (21:38)
--- NOTE | 2024-07-07 23:31 | XRR_ITS ---
PROCEDURE INFORMATION: Exam: XR Chest Exam date and time: 07/08/2024 12:37 AM Age: 23 years old Clinical indication: Shortness of breath; Prior surgery; Surgery date: 6+ months; Surgery type: Clavicular fixation; Patient HX: Worsening hypoxia. Intubated. ; Additional info: Respiratory/o2 decline, potential worsening pneumonia. TECHNIQUE: Imaging protocol: Radiologic exam of the chest. Views: 1 view. COMPARISON: CR XR chest 1V portable [id number] 07/07/2024 6:19 AM FINDINGS: Tubes, catheters and devices: An endotracheal tube is placed with its tip 4.3 cm from the nora. Nasogastric tube is placed with its tip coiled in the proximal stomach. Lungs: There is increasing density seen in the retrocardiac region as well as within the right lower hemithorax, findings suggesting worsening left pneumonia and new infiltrates in right lower lobe pneumonia as well. Pleural spaces: Unremarkable. No pleural effusion. No pneumothorax. Heart/Mediastinum: Unremarkable. No cardiomegaly. Bones/joints: Bone plate and bone screws transfix a healed fracture of the left clavicle. XR/XR chest 1V portable [id number] IMPRESSION: 1. Bilateral basilar pneumonia appears worse today compared with yesterday's examination. 2. Stable life support tubing
--- NOTE | 2024-07-07 23:34 | PC.NURSE ---
Patient's monitoring alarmed to 86% O2. Assessed patient immediately with RT. Suctioning both oral and vent suctioning preformed, with foul smelling green phlegm suctioned from ET tube. Vent setting raised to 80FiO2, 8 PEEP, patient then satting 88-91% O2. Dr. Garcia notified, orders received for chest xray and BNP.
[2024-07-08] VITALS (70 sets, daily range): BP systolic 89–106; BP diastolic 51–63; PULSE 81–102; RESP 14–25; TEMP 36.4–38.9; O2SAT 82–94
[2024-07-08] LABS: Glucose Point of Care 94 mg/dL (70-110)
[2024-07-08 00:17] LABS: NT Pro B Type Natriuretic Pept 239 pg/mL (0-125)
[2024-07-08] MEDS: piperacillin-tazobactam 3.375 GM in sodium chloride 0.9% (plus) 50 ML IV ×3 (00:44→17:48)
[2024-07-08] MEDS: propofol 1,000 MG/100 ML INJ 29.94 MG IV ×2 (01:11→10:00)
[2024-07-08] MEDS: levalbuterol 0.63 mg/3 mL Neb INHALATION ×4 (01:55→20:56)
[2024-07-08] MEDS: acetylcysteine 200 mg/mL MDV 10 mL 100 MG INHALATION ×3 (01:55→13:57)
[2024-07-08] MEDS: ipratropium 0.5 mg/2.5 mL Neb INHALATION ×4 (01:55→20:56)
[2024-07-08] MEDS: fentaNYL 1,000 MCG/100 ML BAG 17.5 MCG IV ×3 (03:10→14:28)
[2024-07-08] MEDS: acetaminophen 325 mg Tablet 650 MG PO (03:22)
[2024-07-08 03:34] LABS: ABG PCO2 42.8 mmHg (35-45); ABG PH Result 7.36 (7.35-7.45); Alveolar-Arterial Oxygen Gradi 59.9 mmHg (5-10); Arterial Blood Gas Hematocrit 39.8 % (42-52); Base Excess ABG -1.6 mmol/L (-2.0-2.0); Blood Gas Allen Test Pos; Blood Gas Operator Identificat ED; Blood Gas Sample Site Radial, left; Blood Gas Sample Type Arterial; Blood Gas Tidal Volume 0.52; Carboxyhemoglobin 0.6 %THgb (0.4-20.1); HGB O2 Sat 90.5 % (95-100); Ionized Calcium Level - ABG 1.2 mmol/L (1.1-1.4); Methemoglobin 1.3 % (0.4-1.5); Oxygen Device VENT; Oxygen Saturation ABG 92.2; PO2 ABG 60.2 mmHg (80.0-100.0); PO2 FiO2 Ratio Arterial Blood 75
[2024-07-08] MEDS: dexmedeTOMIDine 0.9 % NaCL 400 MCG/100 ML PREMIX 17.02 MCG IV ×4 (03:53→21:00)
[2024-07-08 04:12] LABS: Glucose Point of Care 92 mg/dL (70-110)
[2024-07-08] MEDS: propofol 1,000 MG/100 ML INJ 32.93 MG IV ×2 (04:18→07:11)
[2024-07-08] MEDS: venlafaxine 75 mg Tablet 150 MG PO (05:59)
--- NOTE | 2024-07-08 06:00 | XRR_ITS ---
PROCEDURE INFORMATION: Exam: XR Chest Exam date and time: 07/08/2024 6:23 AM Age: 23 years old Clinical indication: Shortness of breath; Additional info: Intubated TECHNIQUE: Imaging protocol: Radiologic exam of the chest. Views: 1 view. COMPARISON: CR (CHEST, ) 07/08/2024 12:37 AM FINDINGS: Tubes, catheters and devices: An endotracheal tube is placed its tip 5.2 cm from the nora. A nasogastric tube is placed its tip coiled in the proximal stomach. EKG leads overlie the chest. Lungs: There are increasing hazy opacities in the mid and lower arlette thoraces and continued mild prominence and indistinctness of pulmonary vasculature, findings that may represent pulmonary edema. Worsening bilateral basilar pneumonia cannot excluded as well. Pleural spaces: Unremarkable. No pleural effusion. No pneumothorax. Heart/Mediastinum: Unremarkable. No cardiomegaly. Bones/joints: Bone plate bone screws transfixing a healed fracture of the left clavicle. XR/XR chest 1V portable [id number] IMPRESSION: There is a pattern of worsening pulmonary edema although worsening basilar pneumonia cannot be excluded well.
--- NOTE | 2024-07-08 06:26 | PC.NURSE ---
Contacted Dr. Garcia in reference to patient's continued fever, Tmax 102.0 axillary, currently 101.4 axillary. Ice packs are currently applied. Received orders for 200mg motrin through OG tube once for fever.
[2024-07-08] MEDS: ibuprofen Oral Susp 100 mg/5mL UDC 200 MG OG-TUBE (06:31)
[2024-07-08 07:04] LABS: Basophils % 0.2 %; Eosinophils # 0.1 10^3/uL (0.0-0.8); Eosinophils % 0.5 %; Hematocrit 40.7 % (37-53); Lymphocytes # 0.8 10^3/uL (0.8-4.8); Lymphocytes % 5.4 %; Mean Corpuscular HGB Conc 32.4 g/dL (30-55); Mean Corpuscular Hemoglobin 30.1 pg (27-33); Mean Corpuscular Volume 92.9 fl (82-101); Mean Platelet Volume 9.5 fL (7.4-10.4); Monocytes # 0.7 10^3/uL (0.2-0.9); Monocytes % 4.8 %; Neutrophils # 13.36 10^3/uL (1.8-7.7); Neutrophils % 87.5 %; Nucleated Red Blood Cells % 0 %; Platelet Count 194 10^3/cmm (157-399); Red Blood Count 4.38 10^6/uL (3.85-5.65); Red Cell Distribution Width 12.8 % (12.1-15.1); White Blood Count 15.27 10^3/uL (3.29-11.43)
[2024-07-08 07:24] LABS: Alanine Aminotransferase 13 U/L (0-41); Albumin Level 3.4 g/dL (3.5-5.2); Alkaline Phosphatase 106 U/L (40-130); Blood Urea Nitrogen 8 mg/dL (6-20); Calcium 8.5 mg/dL (8.5-10.5); Carbon Dioxide 22 mmol/L (22-29); Chloride 102 mmol/L (98-107); Creatinine Clr Calc Pharmacy 135.5608; Globulin 2.8 g/dL (1.3-4.6); Glomerular Filtration Rate 94.3 mL/min (90-130); Glucose 91 mg/dL (65-115); Osmolality Calculated 280 mOsm/kg (285-295); Sodium 136 mmol/L (136-145); Total Bilirubin 0.6 mg/dL (0.15-1.2); Total Protein 6.2 g/dL (6.6-8.7)
[2024-07-08 07:25] LABS: Anion Gap 16.4 (5-19); Aspartate Amino Transferase 20 U/L (0-40); Potassium 4.4 mmol/L (3.5-5.1)
[2024-07-08 07:26] LABS: Lithium 0.2 mmol/L (0.6-1.2)
[2024-07-08] MEDS: budesonide 0.5 mg/2 mL Neb INHALATION ×2 (07:44→20:56)
--- NOTE | 2024-07-08 07:57 | CT_ITS ---
WS: [id number] CT CHEST ANGIOGRAPHY WITH REFORMATS HISTORY: resp failure TECHNIQUE: Contiguous axial images are obtained through the chest during arterial injection of intrav enous contrast. Images are reconstructed to evaluate the pulmonary arteries. MIP imaging also reviewe d. All CT scans at [facility] use at least one of these dose optimization techniques: automat ed exposure control; mA and/or kV adjustment per patient size (includes targeted exams where dose is matched to clinical indication); or iterative reconstruction. CONTRAST: Omnipaque 350; 100 mL IV. DLP: 469.65 mGy.cm COMPARISON: None available. Lung volumes are decreased. Adequate opacification of the pulmonary artery. Pulmonary artery is tao l size. No central pulmonary embolism. No proximal pulmonary artery embolism. Beyond the segmental br anches the pulmonary artery opacification becomes decreased due to areas of consolidation. No RIGHT heart strain. LEFT heart is enlarged. Normal size aorta. Endotracheal tube in good position. Nasogastric tube in good position. Very dense areas of consolidation with air bronchograms in the lower lung shepherd. Partial consolidati on of the RIGHT lower lobe. Additional scattered opacifications RIGHT upper lobe. Hilar lymph nodes are enlarged. The largest lymph node is on the RIGHT at 17 mm. No adrenal mass. Spleen is incompletely visualized but appears slightly prominent measuring at least [address]/CT angio chest PE protcl [id number] IMPRESSION: 1. No pulmonary embolism. 2. Dense consolidations with air bronchograms at the in the lower lobes with a dditional scattered smaller opacifications in the RIGHT upper lobe. Partial ate lectasis RIGHT middle lobe. Findings are to a combination of atelectasis and pn eumonia. The dense consolidations with air bronchograms are predominantly atele ctasis. 3. Mild enlargement of the LEFT heart. 4. Endotracheal tube and nasogastric tubes in good position. 5. Bilateral hilar lymph nodes, largest is 17 mm on the RIGHT. Probably reacti ve.
[2024-07-08] MEDS: pantoprazole 40 mg SDV IVP (08:16)
[2024-07-08] MEDS: lithium carbonate 300 mg Capsule PO ×2 (08:16→17:49)
[2024-07-08] MEDS: BuSPIRONE 10 mg Tablet 15 MG PO ×3 (08:16→22:37)
[2024-07-08] MEDS: chlorhexidine gluconate 4% Btl 118 mL 1 APPLIC TOPICAL (08:17)
--- NOTE | 2024-07-08 09:12 | ECG_ITS ---
[facility] 2024[facility]08 Pat Name: Parth Newman Department: Room: [facility] Gender: Male Inletter: : 2000 Requested By: Henrique Becker Order Number: [id number] Reading MD: Chang Russell M.D. Measurements Intervals [place] Rate: 88 P: 13 DC: 170 QRS: 22 QRSD: 104 T: 8 QT: 347 QTc: 422 Interpretive Statements SINUS RHYTHM NONSPECIFIC T-WAVE ABNORMALITY Compared to ECG 07/06/2024 19:34:20 No significant changes Electronically Signed On 07-08-2024 20:28:16 AIR POLLUTION AUDITOR by Chang Russell M.D. [id number]
[2024-07-08] MEDS: iohexol 350 mg/mL 500 mL Btl (per mL) IV (13:52)
[2024-07-08 14:19] LABS: HIV 1 & 2 Antibody Non-Reactive (Non-Reactiv); HIV 1 & 2 Antigen Non-Reactive (Non-Reactiv)
--- NOTE | 2024-07-08 14:22 | USCV_ITS ---
Parth Newman Age: 23 Gender: M : 2000 Exam Date: 07/08/2024 15:10 Ordering Phys: Henrique Becker MD Technologist: [place] [facility] [place]: resp failure BP: 104 / 61 HR: 914 Rhythm: Sinus Technical Quality: Adequate MEASUREMENTS (Male / Female) Normal Values 2D ECHO LV Diastolic Diameter PLAX 5.0 cm 4.2 - 5.9 / 3.9 - 5.3 cm IVS Diastolic Thickness 1.2 cm 0.6 - 1.0 / 0.6 - 0.9 cm IVS Systolic Thickness 1.7 cm LVPW Diastolic Thickness 1.4 cm 0.6 - 1.0 / 0.6 - 0.9 cm LVPW Systolic Thickness 1.7 cm LVOT Diameter 2.2 cm LV Ejection Fraction 2D Teich 63.8 % LV Ejection Fraction MOD 4C 46.1 % LV Ejection Fraction MOD 2C 48.9 % LV Ejection Fraction 2C AL 53.6 % LA Diameter 4.3 cm RA Systolic Volume 4C AL 42.6 ml RA Systolic Volume 4C MOD 42.2 ml Aorta at Sinotubular Diameter 2.7 cm M-MODE LA Ao Ratio MM 1.2 AV Cusp Separation MM 2.4 cm DOPPLER AV Peak Velocity 100.0 cm/s LVOT Peak Velocity 45.0 cm/s AV Area Cont Eq vti 2.1 cm squared AV Area Cont Eq pk 1.8 cm squared MV Area PHT 4.2 cm squared Mitral E to A Ratio 1.5 TV Peak Velocity 176.0 cm/s TR Peak Velocity 223.0 cm/s TR Peak Gradient 19.9 mmHg TV Peak E Velocity 83.0 cm/s PV Peak Velocity 88.0 cm/s FINDINGS Left Ventricle Mild diffuse hypokinesia left-ventricular ejection fraction of 47.5%. Mildly dilated LV cavity Right Ventricle Possibly normal size and ejection fraction Right Atrium The right atrium is normal in size. Left Atrium Mildly increased left atrial size. Mitral Valve No gross abnormalities Aortic Valve No gross abnormalities Tricuspid Valve No gross abnormalities Pulmonic Valve Pulmonic valve not well visualized. Pericardium No pericardial effusion. Aorta Normal aortic annulus size. IVC Inferior vena cava not visualized. CONCLUSIONS Mild diffuse hypokinesia left-ventricular ejection fraction of 47.5%. Mildly dilated LV cavity. Mildly increased left atrial size. No pericardial effusion. There is no pericardial effusion. No significant stenotic or regurgitant lesions Dr Tomi Dempsey MD [facility] (Electronically Signed) Final Date: 08 July 2024 23:54 S
[2024-07-08] MEDS: propofol 1,000 MG/100 ML INJ 26.94 MG IV (14:28)
--- NOTE | 2024-07-08 15:21 | PHA.VACGOAL ---
Vancomycin Goal - Goal Vancomycin Goal:: 15-20 mg/L Vancomycin Indication:: Other - Therapy Current therapy:: Pip/Tazo Day of therpy:: Day []of [] . Actual body weight (kg): 218 lb 4.122 oz - Data Labs: WBC 15.27 10^3/uL (3.29-11.43) H 07/08/24 06:49 RBC 4.38 10^6/uL (3.85-5.65) 07/08/24 06:49 Hgb 13.20 g/dL (11.27-16.99) 07/08/24 06:49 Hct 40.7 % (37-53) 07/08/24 06:49 MCV 92.9 fl (82-101) 07/08/24 06:49 MCH 30.1 pg (27-33) 07/08/24 06:49 MCHC 32.4 g/dL (30-55) 07/08/24 06:49 RDW 12.8 % (12.1-15.1) 07/08/24 06:49 Sodium 136 mmol/L (136-145) 07/08/24 06:49 Potassium 4.4 mmol/L (3.5-5.1) 07/08/24 06:49 Chloride 102 mmol/L (98-107) 07/08/24 06:49 Carbon Dioxide 22 mmol/L (22-29) 07/08/24 06:49 Anion Gap 16.4 (5-19) 07/08/24 06:49 BUN 8 mg/dL (6-20) 07/08/24 06:49 Creatinine 1.0 mg/dL (0.7-1.2) 07/08/24 06:49 GFR Calculation 94.3 mL/min (90-130) 07/08/24 06:49 Last dialysis session:: N/A Treatment plan:: new consult Regimen:: LOADING DOSE 2500 mg PER DOSING PROTOCOL MAINTENANCE DOSE 1250 mg Q8H Follow up:: WILL CONTINUE TO MONITOR AND FOLLOW UP DAILY
--- NOTE | 2024-07-08 16:13 | PM.PN ---
Subjective Subjective: Overnight patient's oxygen requirements have gone up. Currently he is on 80% FiO2. Tmax in last 24 hours 102 Fahrenheit. Patient currently on examination on propofol of 50, fentanyl 175, Precedex 0.7. A currently on ventilator setting of tidal volume of 520, FiO2 of 80% with PEEP of 8. Vitals/I&O/Wt Last Vital Signs Temp 97.5 F L 07/08/24 12:00 Pulse 91 07/08/24 14:11 Resp 14 07/08/24 15:13 BP 98/53 07/08/24 13:00 Pulse Ox 94 07/08/24 15:13 O2 Del Method Mechanical Ventilation 07/08/24 14:00 FiO2 80 07/08/24 15:13 07/08/24 07/08/24 07/08/24 06:59 14:59 22:59 Intake Total 510.000 / 1587.509 712.673 / 712.673 Output Total 400 / 1150 Balance 110 / 437.509 712.673 / 712.673 Weight last 48 hrs Weight 99 kg Weight 97.278 kg Physical Exam Narrative: General: Intubated, sedated HEENT: PERRLA, pupils bilaterally equal and reactive Chest: Normal vesicular breath sounds, no added sounds, equal good air entry bilaterally CVS: S1-S2 regular, no murmurs, no tachycardia, no gallops, no rubs Abdomen: Soft, nontender, no organomegaly, bowel sounds present Neuro: No focal deficits, no facial deformity, Urinary Catheter Management: Perez: Cath Placed During This Visit: yes Reason for Continuing Indwelling Catheter: Accurate Measurement of Urinary Output in Critically Ill Patients Urinary Catheter Date of Insertion: 07/06/24 Urinary Catheter Time of Insertion: 04:21 Data 07/08/24 06:49 07/08/24 06:49 Micro: Microbiology 07/07/24 13:33 Gram Stain - Final Sputum - Endotracheal Tube Aspirate Sputum Culture - Preliminary Coag positive Staphylococcus 07/06/24 07:45 Gram Stain - Final Sputum - Endotracheal Tube Aspirate Sputum Culture - Preliminary A&P Assessment and plan (1) Intentional drug overdose: (2) Suicide attempt: (3) Acute respiratory failure: (4) Drug overdose: Qualifiers: Encounter type: initial encounter Injury intent: intentional self-harm Qualified Code(s): T50.902A - Poisoning by unspecified drugs, medicaments and biological substances, intentional self-harm, initial encounter (5) ARDS (adult respiratory distress syndrome): Plan ARDS: Respiratory failure: Patient requiring high oxygen supplementation. PF ratio on ABG from today morning worsening. PF ratio: 75: Follow-up sputum culture. Check blood culture. For now continue with IV Zosyn. Add vancomycin. MRSA swab negative but as patient is critically sick we will add vancomycin for now. Check CTA chest to rule out pulmonary embolism and for further review of consolidation. Sputum culture from admission growing possible mold. Patient does not have any history of immunocompromisation in the past. For now we will request lab for further identification. Hold off on treatment for now. If patient continues to have worsening PF ratio we will consider starting on antifungals. Check HIV. Continue nebulization treatment with Pulmicort, DuoNeb every 6 hour, Mucomyst every 6 hour. No history of COPD. Intentional drug overdose, suicide attempt: Drug overdose of Seroquel. Possibly took up to 8 g Seroquel. Patient is also on other medications including Effexor, BuSpar and lithium. Not sure if patient overdose on those medications as well. Appreciate recommendations from poison control. Monitor lithium levels. EKG daily for now. For QTc. Medication half-life of around 6 hours. Will consult psychiatry. Possible 96-hour hold once patient is extubated and transition to Neuropsych Unit once medically stable. Plan to wean propofol and fentanyl. Continue Precedex. Plan to get propofol down to 30 and fentanyl around 100 while continuing Precedex. Monitor hemodynamics. Bolus 1 L of IV fluids. Strict and proper charting. Seems patient's takes buspirone 15 mg 3 times daily, Seroquel 400 mg nightly, Effexor to 25 mg daily along with lithium 300 mg twice daily. Restart home BuSpar 15 mg 3 times daily and Effexor at 150 mg daily. Will see if he can start Seroquel at a lower dose of 50 mg at bedtime. [place] level so far for subtherapeutic. Continue with home dose of lithium carbonate 300 mg twice daily. Sedation: Propofol, fentanyl, Precedex Glycemic control: Not needed Nutrition: N.p.o. CODE STATUS: Full code PUD prophylaxis: Protonix DVT prophylaxis: Lovenox Discharge planning: Neuropsych Unit once patient is medically stable Continue with care at ICU This documentation was created by dragon polisher and buffer software. Every effort was made to ensure accuracy of polisher and buffer. Any obvious errors or omissions should be clarified with the author of the document. Care discussed in detail with patient's family at bedside. All the questions were answered. Attestations Medical Necessity Statement*: Requires further hospitalization for management of respiratory failure with ARDS in a patient admitted for suicide attempt with intentional prescription drug overdose Critical Care Time: The high probability of a clinically significant, sudden or life threatening deterioration of the patient's [pulmonary, cardiac, renal, neurology] system(s) required my full and direct attention, intervention and personal management. The critical care time is as shown. This time is in addition to time spent performing any reported procedures but includes the following: [x] Data and vital sign review and interpretation [x] Patient assessment, examination and intervention [x] Documentation [x] Medication orders and management Critical Care Time (min): 80 Coding Level of Care Code Critical Care >/= 30 minutes Critical care time (in minutes): 80 The high probability of a clinically significant, sudden or life threatening deterioration, as referenced in this documentation, required my full and direct attention, intervention and personal management. The critical care time shown is in addition to time spent performing any reported separately billable procedures and includes the following: [x] Data and vital sign review and interpretation [x] Patient assessment, examination and intervention [x] Medication orders and management [x] Patient/Family updates as able [x] Care Coordination and Documentation. Other Coding Information This patient has a high probability of clinically significant, sudden or life threatening deterioration of the patient's (neurological/pulmonary/cardiac/renal/ID/endocrine) systems required my full, direct attention, the highest level of physician preparedness for urgent intervention and personal management. I managed/supervised life or organ supporting interventions that required frequent physician assessment. I devoted my full attention in the ICU to the direct care of this patient for the period of time indicated above. Time I spent with family or surrogate(s) is included only if the patient was incapable of providing necessary information or participating in decision making. This time includes the following services provided: Telemetry review Mechanical Ventilation Hemodynamic interpretation, assessment and management Review and interpretation of CXR Review and interpretation of lab values Review and interpretation of microbiologic data and culture results Review of medications and administration Review and interpretation of Nutrition requirements and management Discussion of management with other consultants and services Clinical update to family members Diagnoses Intentional drug overdose T50.902A Suicide attempt T14.91XA Acute respiratory failure J96.00 Drug overdose T50.902A Encounter type: initial encounter Injury intent: intentional self-harm ARDS (adult respiratory distress syndrome) J80
[2024-07-08] MEDS: enoxaparin 40 mg/0.4 mL Syringe SUBCUT (17:49)
[2024-07-08] MEDS: sodium chloride 0.9% 1,000 ML 999 ML IV (17:49)
[2024-07-08] MEDS: propofol 1,000 MG/100 ML INJ 20.96 MG IV (17:55)
--- NOTE | 2024-07-08 18:40 | XRR_ITS ---
PROCEDURE INFORMATION: Exam: XR Chest Exam date and time: 07/08/2024 6:48 PM Age: 23 years old Clinical indication: Other: Possible pneumonia; Additional info: Low o2 TECHNIQUE: Imaging protocol: Radiologic exam of the chest. Views: 1 view. COMPARISON: CT angio chest PE protcl [id number] 07/08/2024 1:41 PM FINDINGS: Tubes, catheters and devices: The ET tube is positioned 2.9 cm above the nora. There is an NG tube positioned in the proximal stomach. Lungs: Large opacity in the right lower lung field. Pleural spaces: Unremarkable. No pleural effusion. No pneumothorax. Heart/Mediastinum: Unremarkable. No cardiomegaly. Bones/joints: Fixation hardware along the left clavicle. XR/XR chest 1V portable [id number] IMPRESSION: 1. Large opacity in the right lower lung field. 2. The ET tube is positioned 2.9 cm above the nora.
[2024-07-08 18:51] LABS: ABG PCO2 44.5 mmHg (35-45); ABG PH Result 7.32 (7.35-7.45); Alveolar-Arterial Oxygen Gradi 80.6 mmHg (5-10); Arterial Blood Gas Hematocrit 35.9 % (42-52); Base Excess ABG -3.2 mmol/L (-2.0-2.0); Blood Gas Allen Test Pos; Blood Gas Operator Identificat CAK; Blood Gas Sample Site Radial, left; Blood Gas Sample Type Arterial; Blood Gas Tidal Volume 0.52; Carboxyhemoglobin 0.6 %THgb (0.4-20.1); HGB O2 Sat 78.8 % (95-100); Ionized Calcium Level - ABG 1.2 mmol/L (1.1-1.4); Methemoglobin 0.4 % (0.4-1.5); Oxygen Device VENT; Oxygen Saturation ABG 79.5; PO2 ABG 43.5 mmHg (80.0-100.0); PO2 FiO2 Ratio Arterial Blood 43; Total Hemoglobin 11.7 g/dL (14-18)
[2024-07-08] MEDS: levalbuterol 1.25 mg/3 mL Neb INHALATION (18:57)
[2024-07-08] MEDS: methylPREDNISolone sod succ 40 mg/mL INJ IVP (19:33)
[2024-07-08] MEDS: methylPREDNISolone sod succ 125 mg/2 mL INJ IVP (19:33)
--- NOTE | 2024-07-08 19:36 | P.PNCC_ITS ---
Critical Care Event Note Patient had episode of desaturation in the evening. Sedation has been continued to wean down during the day currently on propofol of 35, fentanyl 125. Patient became agitated after that he had episode of desaturation down to high 60s. Currently on 100% FiO2 with saturation of 80% and rising very gradually. Heart rate of 80 bpm with blood pressure of 98/60 mmHg. Plan: Stat ABG showing worsening of ARDS with PaO2 of 40% on 100% Fio2 Stat chest x-ray showing right lower lobe mucous plug by my read Continue nebulization treatment as above. Hold off on Mucomyst. Will plan to paralyze patient with Nimbex. Aggressive pulmonary toilet chest vest every 6 hour. If needed will prone the patient. Patient's care discussed in detail with his mother over the phone. We discussed unfortunately patient's oxygen requirement has been going up and currently he is on 100% FiO2 with maximal ventilatory support and would be important for him to be paralyzed to maximize his chances of survival. We discussed that there is a high chance that he requires a music grapher and tan room supervisor for need for bronchoscopy and further management. Family verbalized understanding and is agreeable for transfer. They state they would prefer to be transferred to [facility] if possible. Patient's care discussed in detail with tan room supervisor Dr. Olmos at [facility] who has accepted patient's care. Will transfer patient for further management at the earliest. The high probability of a clinically significant, sudden or life threatening deterioration of the patient's [pulmonary, sedation] system(s) required my full and direct attention, intervention and personal management. The critical care time is as shown. This time is in addition to time spent performing any reported procedures but includes the following: [x] Data and vital sign review and interpretation [x] Patient assessment, examination and intervention [x] Documentation [x] Medication orders and management 60 mins Of additional time required for management of worsening ARDS, ventilator setting, paralyzing the patient and arranging transfer for tertiary center. Critical Care Time Code activated: No Critical Care Time (min): 60 Additional information about critical care time: Paralyzing, mechanical ventilator settings Coding Level of Care Code Critical Care Other Coding Information Prolonged care (total time indicated above or notated here) Time Spent (min) 60
[2024-07-08] MEDS: cisatracurium 100 MG in sodium chloride 0.9% 50 ML IV (20:04)
--- NOTE | 2024-07-08 20:30 | P.TS_ITS ---
Transfer Summary Providers Date of Admission: 07/06/24 05:33 Date of Discharge/Transfer: 07/09/24 Attending Provider at Admission: Cholo Garcia MD Attending Provider at Transfer: Henrique Becker MD Transfer Plans: Anticipated date of transfer: 07/08/24 . Receiving Facility: [facility] . Receiving Provider: Dr. Olmos . Diagnoses at Discharge Discharge Diagnosis (1) Intentional drug overdose: Status: Resolved (2) Suicide attempt: Status: Acute (3) Acute respiratory failure: Status: Acute (4) Drug overdose: Status: Acute Qualifiers: Encounter type: initial encounter Injury intent: intentional self-harm Qualified Code(s): T50.902A - Poisoning by unspecified drugs, medicaments and biological substances, intentional self-harm, initial encounter (5) ARDS (adult respiratory distress syndrome): Status: Acute Reason for Visit Reason for Visit OD Brief History: Parth Newman is a 23 year old male with a past medical history of bipolar disorder with depression, panic attacks, obstructive compulsive disorder, PTSD, suicidal ideation, who presents [facility] due to Concern for intentional drug overdose. Patient was brought in by EMS for overdose of Seroquel, supposedly patient had taken 20 tablets of 400 mg of Seroquel totaling 8 g. EMS providers had told staff that patient had said he was overwhelmed with life, concerns for suicide attempt. On arrival he was been responsive to painful stimuli, concerns for airway was intubated for airway protection. Currently patient is intubated, sedated on mechanical ventilation. Poison control has been contacted. In the evening of 07/05/2024, he did come to the emergency room as he had stood up and bumped his head on a tree branch, knocking him to the ground, no apparent loss of consciousness but did throw up after, there was concern for him having some amnesia to the event, called EMS multiple times despite the moderate to be on their way to pick him up, reported feeling drowsy, no reported focal neurologic deficits. Hospital Course Hospital Course Patient was admitted to the hospital further evaluation and management of respiratory failure in setting of drug overdose of prescription medication Seroquel. Poison control was contacted. He was being monitored for serotonin syndrome, QTc prolongation and elevation in lithium levels. Patient's respiratory failure worsened in setting of increased secretions leading to multiple mucous plugs. He was started on broad-spectrum IV antibiotics. 2 separate sputum cultures so far is growing coag negative staph and mild mold. He has been continued on aggressive nebulization along with pulmonary toilet and hide the date of medications with propofol of 50, fentanyl of 175, Precedex at 0.7. Patient continued to have occasional episodes of agitation leading to worsening respiratory failure and ARDS. CTA was done which was negative for pulm embolism but was consistent with significant consolidation. Given worsening respiratory status, recurrent mucous plugging, rapid development of ARDS requiring paralyzing agent to maintain saturation patient would benefit with tertiary care center where pulmonology and dehorner is available. Patient's family was agreeable for transfer and would prefer to be transferred to [facility] if possible. Patient's care were discussed in detail with dehorner at [facility] for a possible transfer for bronchoscopy and dehorner care. Patient has been accepted by Dr. Olmos at [facility] for further evaluation and management. Physical Exam Narrative: General: Intubated, sedated HEENT: PERRLA, pupils bilaterally equal and reactive Chest: Normal vesicular breath sounds, no added sounds, equal good air entry bilaterally CVS: S1-S2 regular, no murmurs, no tachycardia, no gallops, no rubs Abdomen: Soft, nontender, no organomegaly, bowel sounds present Neuro: No focal deficits, no facial deformity, Urinary Catheter Management: Perez: Cath Placed During This Visit: yes Reason for Continuing Indwelling Catheter: Accurate Measurement of Urinary Output in Critically Ill Patients Urinary Catheter Date of Insertion: 07/06/24 Urinary Catheter Time of Insertion: 04:21 TS Data Studies Completed and Pending Pending at discharge Category Date Time Status Blood Culture Stat Lab 07/06/24 06:54 Results Fungal Isolate Identification Routine Lab 07/07/24 13:33 Received Sputum Culture and Gram Stain Routine Lab 07/07/24 13:33 Results Sputum Culture and Gram Stain Stat Lab 07/06/24 07:45 Results Completed Studies During Hospitalization Category Date Time Status CT head wo con* [id number] Stat Cat Scan 07/06/24 05:10 Completed CTA chest [CT angio chest PE protcl [id number]] Routine Cat Scan 07/08/24 07:57 Completed XR chest 1V portable [id number] QAM Exams 07/07/24 06:00 Completed XR chest 1V portable [id number] QAM Exams 07/08/24 06:00 Completed XR chest 1V portable [id number] Stat Exams 07/06/24 04:07 Completed XR chest 1V portable [id number] Stat Exams 07/07/24 23:31 Completed XR chest 1V portable [id number] Stat Exams 07/08/24 18:40 Completed CV. echo complete* [id number] Routine Ultrasound 07/08/24 14:22 Completed Laboratory Last Values WBC 15.27 10^3/uL (3.29-11.43) H 07/08/24 06:49 RBC 4.38 10^6/uL (3.85-5.65) 07/08/24 06:49 Hgb 13.20 g/dL (11.27-16.99) 07/08/24 06:49 Hct 40.7 % (37-53) 07/08/24 06:49 MCV 92.9 fl (82-101) 07/08/24 06:49 MCH 30.1 pg (27-33) 07/08/24 06:49 MCHC 32.4 g/dL (30-55) 07/08/24 06:49 RDW 12.8 % (12.1-15.1) 07/08/24 06:49 Plt Count 194 10^3/cmm (157-399) 07/08/24 06:49 MPV 9.5 fL (7.4-10.4) 07/08/24 06:49 Neut % (Auto) 87.5 % 07/08/24 06:49 Lymph % (Auto) 5.4 % 07/08/24 06:49 [place] % (Auto) 4.8 % 07/08/24 06:49 Eos % (Auto) 0.5 % 07/08/24 06:49 Baso % (Auto) 0.2 % 07/08/24 06:49 Neut # (Auto) 13.36 10^3/uL (1.8-7.7) H 07/08/24 06:49 Lymph # (Auto) 0.8 10^3/uL (0.8-4.8) 07/08/24 06:49 [place] # (Auto) 0.7 10^3/uL (0.2-0.9) 07/08/24 06:49 Eos # (Auto) 0.1 10^3/uL (0.0-0.8) 07/08/24 06:49 Baso # (Auto) 0.0 10^3/uL (0.0-0.1) 07/08/24 06:49 Nucleated RBC % (auto) 0 % 07/08/24 06:49 Nucleated RBCs # 0.0 /100WBC 07/08/24 06:49 Specimen Type Arterial 07/08/24 18:39 Sample Site Radial, left 07/08/24 18:39 ABG pH 7.32 (7.35-7.45) L 07/08/24 18:39 ABG pCO2 44.5 mmHg (35-45) 07/08/24 18:39 ABG pO2 43.5 mmHg (80.0-100.0) L 07/08/24 18:39 ABG PO2/FiO2 Ratio 43 07/08/24 18:39 ABG HCO3 23.0 mmol/L (22-26) 07/08/24 18:39 ABG O2 Saturation 79.5 07/08/24 18:39 ABG Base Excess -3.2 mmol/L (-2.0-2.0) L 07/08/24 18:39 Artur Test Pos 07/08/24 18:39 A-a O2 Gradient 80.6 mmHg (5-10) H 07/08/24 18:39 Hematocrit 35.9 % (42-52) L 07/08/24 18:39 Hgb O2 Saturation 78.8 % (95-100) L 07/08/24 18:39 Carboxyhemoglobin 0.6 %THgb (0.4-20.1) 07/08/24 18:39 Methemoglobin 0.4 % (0.4-1.5) 07/08/24 18:39 Total Hemoglobin 11.7 g/dL (14-18) L 07/08/24 18:39 Sodium 136.0 mmol/L (131-143) 07/08/24 18:39 Potassium 4.0 mmol/L (3.5-5.0) 07/08/24 18:39 Glucose 105.0 mg/dL (70-115) 07/08/24 18:39 Ionized Calcium 1.2 mmol/L (1.1-1.4) 07/08/24 18:39 O2 Delivery Device Vent 07/08/24 18:39 FiO2 100.0 % 07/08/24 18:39 Tidal Volume 0.52 07/08/24 18:39 PEEP 8.0 cmH20 07/08/24 18:39 Art Glass Setter ID Cak 07/08/24 18:39 Sodium 136 mmol/L (136-145) 07/08/24 06:49 Potassium 4.4 mmol/L (3.5-5.1) 07/08/24 06:49 Chloride 102 mmol/L (98-107) 07/08/24 06:49 Carbon Dioxide 22 mmol/L (22-29) 07/08/24 06:49 Anion Gap 16.4 (5-19) 07/08/24 06:49 BUN 8 mg/dL (6-20) 07/08/24 06:49 Creatinine 1.0 mg/dL (0.7-1.2) 07/08/24 06:49 GFR Calculation 94.3 mL/min (90-130) 07/08/24 06:49 Glucose 91 mg/dL (65-115) 07/08/24 06:49 POC Glucose 92 mg/dL (70-110) 07/08/24 04:09 Estimat Average Glucose 103 07/06/24 04:42 Hemoglobin A1c 5.2 % (4.0-6.0) 07/06/24 04:42 Calculated Osmolality 280 mOsm/kg (285-295) L 07/08/24 06:49 Lactic Acid 2.1 mmol/L (0.5-2.2) 07/06/24 04:42 Lactic Acid (Sepsis) 0.9 mmol/L (0.5-2.2) 07/06/24 06:47 Calcium 8.5 mg/dL (8.5-10.5) 07/08/24 06:49 Magnesium 2.3 mg/dL (1.7-2.3) 07/06/24 04:42 Total Bilirubin 0.6 mg/dL (0.15-1.2) 07/08/24 06:49 AST 20 U/L (0-40) 07/08/24 06:49 ALT 13 U/L (0-41) 07/08/24 06:49 Alkaline Phosphatase 106 U/L (40-130) 07/08/24 06:49 Troponin T Baseline < 6 ng/L (0-15) 07/06/24 04:42 Troponin T 120 Minute 7.57 ng/L (0-15) 07/06/24 06:47 Delta Troponin T 1.27651 ABS# (0-10) 07/06/24 06:47 Troponin T Hi Sens 6Hr 6.00 ng/L (0-15) 07/06/24 11:05 Troponin T Hi Sens 6Hr Delta 0.29974 ng/L (0-12) 07/06/24 11:05 C-Reactive Protein 7.5 mg/L (0.0-4.9) H 07/06/24 06:47 NT-Pro-B Natriuret Pep 239 pg/mL (0-125) H 07/07/24 23:43 Total Protein 6.2 g/dL (6.6-8.7) L 07/08/24 06:49 Albumin 3.4 g/dL (3.5-5.2) L 07/08/24 06:49 Globulin 2.8 g/dL (1.3-4.6) 07/08/24 06:49 Triglycerides 159 mg/dL (0-150) H 07/06/24 06:41 Cholesterol 112 mg/dL (0-200) 07/06/24 06:41 LDL Cholesterol, Calc 46 mg/dL (50-129) L 07/06/24 06:41 HDL Cholesterol 34 mg/dL (60-100) L 07/06/24 06:41 LDL/HDL Ratio 1.35 RATIO (0.00-3.22) 07/06/24 06:41 Cholesterol/HDL Ratio 3.29 mg/dL (1.0-5.00) 07/06/24 06:41 Procalcitonin 0.20 ng/mL (0-0.5) 07/06/24 06:47 TSH 3.98 uIU/mL (0.27-4.20) 07/06/24 06:41 Urine Color Yellow (Yellow) 07/06/24 04:29 Urine Appearance Clear (CLEAR) 07/06/24 04:29 Urine pH 5.0 (5-7) 07/06/24 04:29 Ur Specific [place] 1.022 (1.005-1.030) 07/06/24 04:29 Urine Protein Negative (Negative) 07/06/24 04:29 Urine Glucose (UA) Negative (Normal) 07/06/24 04:29 Urine Ketones Trace (Negative) 07/06/24 04:29 Urine Blood Negative (Negative) 07/06/24 04:29 Urine Nitrate Negative (Negative) 07/06/24 04:29 Urine Bilirubin Negative (Negative) 07/06/24 04:29 Urine Urobilinogen 0.2 mg/dL (Negative) 07/06/24 04:29 Ur Leukocyte Esterase Negative (Negative) 07/06/24 04:29 Urine RBC 0-2 /hpf (0-2) 07/06/24 04:29 Urine WBC 0-5 /hpf (0-5) 07/06/24 04:29 Ur Squamous Epith Cells 0-5 /hpf (0-5) 07/06/24 04:29 Amorphous Sediment Not Reportable 07/06/24 04:29 Urine Bacteria None seen /hpf (NONE) 07/06/24 04:29 Hyaline Casts 13.63 /lpf 07/06/24 04:29 Urine Mucus 1+ /hpf 07/06/24 04:29 Nasal MRSA (PCR) Not detected (Negative) 07/07/24 08:54 Salicylates < 0.3 mg/dL (3-10) L 07/06/24 04:42 Urine Opiates Screen Negative ng/mL (Negative) 07/06/24 04:29 Acetaminophen < 5.0 ug/mL (10-30) L 07/06/24 04:42 Ur Barbiturates Screen Negative ng/mL (Negative) 07/06/24 04:29 Ur Phencyclidine Scrn Negative ng/mL (Negative) 07/06/24 04:29 Ur Amphetamines Screen Negative ng/mL (Negative) 07/06/24 04:29 U Benzodiazepines Scrn Negative ng/mL (Negative) 07/06/24 04:29 Reservoir 0.2 mmol/L (0.6-1.2) L 07/08/24 06:49 Urine Cocaine Screen Negative ng/mL (Negative) 07/06/24 04:29 U Marijuana (THC) Screen Positive ng/mL (Negative) H 07/06/24 04:29 Ethyl Alcohol < 10 mg/dL (0-10) 07/06/24 04:42 HIV 1&2 Ab & HIV 1 Ag Non-reactive (Non-Reactiv) 07/08/24 06:49 HIV 1&2 Antibody Non-reactive (Non-Reactiv) 07/08/24 06:[address] 07/06/24 05:10 IMPRESSION: No acute intracranial abnormality. Chest CTA 07/08/24 07:57 IMPRESSION: 1. No pulmonary embolism. 2. Dense consolidations with air bronchograms at the in the lower lobes with a dditional scattered smaller opacifications in the RIGHT upper lobe. Partial atelectasis RIGHT middle lobe. Findings are to a combination of atelectasis and pneumonia. The dense consolidations with air bronchograms are predominantly atelectasis. 3. Mild enlargement of the LEFT heart. 4. Endotracheal tube and nasogastric tubes in good position. 5. Bilateral hilar lymph nodes, largest is 17 mm on the RIGHT. Probably reactive. Chest X-Ray 07/08/24 18:40 IMPRESSION: 1. Large opacity in the right lower lung field. 2. The ET tube is positioned 2.9 cm above the nora. Microbiology 07/07/24 13:33 Sputum - Endotracheal Tube Aspirate Gram Stain - Final 07/07/24 13:33 Sputum - Endotracheal Tube Aspirate Sputum Culture - Pr eliminary Staphylococcus aureus 07/06/24 07:45 Sputum - Endotracheal Tube Aspirate Gram Stain - Final 07/06/24 07:45 Sputum - Endotracheal Tube Aspirate Sputum Culture - Preliminary 07/06/24 06:54 Blood Blood Culture - Preliminary NEGATIVE TO DATE 07/06/24 06:47 Blood Blood Culture - Preliminary NEGATIVE TO DATE Recent Clincial Data Last Vital Signs Temp 99.2 F 07/09/24 03:44 Pulse 80 07/09/24 03:44 Resp 14 07/09/24 03:44 BP 98/60 07/09/24 03:44 Pulse Ox 94 07/09/24 03:44 O2 Del Method Mechanical Ventilation 07/09/24 01:00 FiO2 100 07/09/24 01:00 Vital Signs Temp Pulse Resp BP Pulse Ox 07/09/24 03:44 99.2 F 80 14 98/60 94 Intake & Output/Weight 07/07/24 07/08/24 07/09/24 07/10/24 06:59 06:59 06:59 06:59 Intake Total 1689.630 / 8175.243 4326.509 / 6650.006 7850.957 / 1867.957 Output Total 850 / 850 1150 / 1150 200 / 200 Balance 839.630 / 839.630 437.509 / 749.592 8520.957 / 1667.957 Weight 97.278 kg 99 kg Vitals Last Vital Signs Temp 99.2 F 07/09/24 03:44 Pulse 80 07/09/24 03:44 Resp 14 07/09/24 03:44 BP 98/60 07/09/24 03:44 Pulse Ox 94 07/09/24 03:44 O2 Del Method Mechanical Ventilation 07/09/24 01:00 FiO2 100 07/09/24 01:00 TS Medications Medications Discontinued Medications Acetaminophen (Acetaminophen 325 Mg Tablet) 650 mg PO Q6H PRN PRN Reason: Mild/Mod Pain Or Temp >/= 101 Last Admin: 07/08/24 03:22 Dose: 650 mg Acetylcysteine (Acetylcysteine 200 Mg/Ml Mdv 10 Ml) 100 mg INHALATION Q6H.RESP ELLIOT Acetylcysteine (Acetylcysteine 200 Mg/Ml Mdv 10 Ml) 100 mg INHALATION Q6H.RESP ELLIOT Last Admin: 07/08/24 13:57 Dose: 100 mg Albuterol/Ipratropium (Ipratropium-Albuterol 3 Ml Neb) 3 ml INHALATION Q6H PRN PRN Reason: SHORTNESS OF BREATH Last Admin: 07/07/24 07:26 Dose: 3 ml Artificial Tears (Artificial Tears Op Oint 3.5 Gm) 1 applic EYE-BOTH PRN PRN PRN Reason: DRY EYE(S) Budesonide (Budesonide 0.5 Mg/2 Ml Neb) 0.5 mg INHALATION BID ELLIOT Budesonide (Budesonide 0.5 Mg/2 Ml Neb) 0.5 mg INHALATION BID.RESPIRATORY ELLIOT Last Admin: 07/08/24 20:56 Dose: 0.5 mg Buspirone HCl (Buspirone 10 Mg Tablet) 15 mg PO TID ELLIOT Last Admin: 07/08/24 22:37 Dose: 15 mg Chlorhexidine Gluconate (Chlorhexidine Gluconate 4% Btl 118 Ml) 1 applic TOPICAL DAILY ELLIOT Chlorhexidine Gluconate (Chlorhexidine Gluconate 4% Btl 118 Ml) 1 applic TOPICAL DAILY ELLIOT Last Admin: 07/08/24 08:17 Dose: 1 applic Enoxaparin Sodium (Enoxaparin 40 Mg/0.4 Ml Syringe) 40 mg SUBCUT Q24H ELLIOT Last Admin: 07/08/24 17:49 Dose: 40 mg Etomidate (Etomidate 2 Mg/Ml Inj Sdv 10 Ml) 20 mg IVP NOW ONE Stop: 07/06/24 04:08 Last Admin: 07/06/24 04:12 Dose: 20 mg Etomidate (Etomidate 2 Mg/Ml Inj Sdv 10 Ml) 20 mg IVP NOW ONE Stop: 07/06/24 04:22 Last Admin: 07/06/24 04:15 Dose: 20 mg Midazolam HCl (Versed) 100 mg in 100 mls @ 0 mls/hr IV .Q0M ELLIOT; Protocol Last Titration: 07/06/24 07:49 Dose: 0 mg/hr, 0 mls/hr Fentanyl (Sublimaze) 1,000 mcg in 100 mls @ 0 mls/hr IV .Q0M ELLIOT; Protocol Last Titration: 07/08/24 21:02 Dose: Infused Propofol (Diprivan) 1,000 mg in 100 mls @ 0 mls/hr IV .Q0M ELLIOT; Protocol Last Admin: 07/09/24 00:39 Dose: 70 mcg/kg/min, 41.91 mls/hr Sodium Chloride (Sodium Chloride 0.9%) 1,000 mls @ 75 mls/hr IV .[id number] ELLIOT Last Admin: 07/06/24 21:25 Dose: 75 mls/hr Dexmedetomidine/Sodium Chloride (Precedex) 400 mcg in 100 mls @ 0 mls/hr IV .Q0M ELLIOT; Protocol Dexmedetomidine/Sodium Chloride (Precedex) 400 mcg in 100 mls @ 0 mls/hr IV .Q0M ELLIOT; Protocol Last Admin: 07/08/24 21:00 Dose: 0.7 mcg/kg/hr, 17.02 mls/hr Piperacillin Sod/Tazobactam (Sod / Sodium Chloride) 50 mls @ 0 mls/hr [id number] CONT ELLIOT; Protocol Piperacillin Sod/Tazobactam (Sod 3.375 gm/ Sodium Chloride) 50 mls @ 12.5 mls/hr IV Q8H ELLIOT Last Infusion: 07/08/24 21:50 Dose: Infused Vancomycin HCl / Sodium (Chloride) 250 mls @ 0 mls/hr [id number] PROTOCOL [facility]; Protocol Vancomycin HCl (Vancocin) 2,500 mg in 500 mls @ 166.667 mls/hr IV ONCE ONE Stop: 07/08/24 18:29 Last Infusion: 07/08/24 18:41 Dose: Infused Vancomycin HCl (Vancocin) 1,250 mg in 250 mls @ 166.667 mls/hr IV Q8H ELLIOT Last Admin: 07/08/24 22:37 Dose: 166.67 mls/hr Sodium Chloride (Sodium Chloride 0.9%) 1,000 mls @ 999 mls/hr IV .Q1H1M ONE Stop: 07/08/24 18:31 Last Admin: 07/08/24 17:49 Dose: 999 mls/hr Fentanyl (Sublimaze) 2,500 mcg in 250 mls @ 0 mls/hr IV .Q0M [facility]; Protocol Last Admin: 07/08/24 21:02 Dose: 175 mcg/hr, 17.5 mls/hr Cisatracurium Besylate 100 mg/ (Sodium Chloride) 100 mls @ 0 mls/hr IV .Q0M [facility]; Protocol Last Titration: 07/08/24 23:30 Dose: 4 mcg/kg/min, 23.76 mls/hr Ibuprofen (Ibuprofen Oral Susp 100 Mg/5ml Udc) 200 mg OG-TUBE ONCE ONE Stop: 07/08/24 06:31 Last Admin: 07/08/24 06:31 Dose: 200 mg Iohexol (Iohexol 350 Mg/Ml 500 Ml Btl (Per Ml)) 0 ml IV ONCE ONE Stop: 07/08/24 13:53 Last Admin: 07/08/24 13:52 Dose: 83 ml Ipratropium [place] (Ipratropium 0.5 Mg/2.5 Ml Neb) 0.5 mg INHALATION Q6H.RESP ELLIOT Last Admin: 07/07/24 13:34 Dose: 0.5 mg Ipratropium [place] (Ipratropium 0.5 Mg/2.5 Ml Neb) 0.5 mg INHALATION Q6H.RESP [facility] Last Admin: 07/08/24 20:56 Dose: 0.5 mg Levalbuterol HCl (Levalbuterol 0.63 Mg/3 Ml Neb) 0.63 mg INHALATION Q6H.RESP ELLIOT Last Admin: 07/07/24 13:34 Dose: 0.63 mg Levalbuterol HCl (Levalbuterol 0.63 Mg/3 Ml Neb) 0.63 mg INHALATION Q6H.RESP [facility] Last Admin: 07/08/24 20:56 Dose: 0.63 mg Levalbuterol HCl (Levalbuterol 1.25 Mg/3 Ml Neb) 1.25 mg INHALATION ONCE ONE Stop: 07/08/24 18:42 Last Admin: 07/08/24 18:57 Dose: 1.25 mg Reservoir Carbonate (Reservoir Carbonate 300 Mg Capsule) 300 mg PO BID [facility] Last Admin: 07/08/24 17:49 Dose: 300 mg Methylprednisolone Sodium Succinate (Methylprednisolone Sod Succ 125 Mg/2 Ml Inj) 125 mg IVP ONCE ONE Stop: 07/08/24 19:03 Last Admin: 07/08/24 19:33 Dose: 125 mg Methylprednisolone Sodium Succinate (Methylprednisolone Sod Succ 40 Mg/Ml Inj) 40 mg IVP Q8H [facility] Last Admin: 07/08/24 19:33 Dose: 40 mg Naloxone HCl (Naloxone 0.4 Mg/Ml Sdv) 0.1 mg IVP Q2M PRN PRN Reason: OPIATERV Ondansetron HCl (Ondansetron 2 Mg/Ml Sdv 2 Ml) 4 mg IVP Q8H PRN PRN Reason: vomiting, or N/V if npo Pantoprazole Sodium (Pantoprazole 40 Mg Sdv) 40 mg IVP Q24H [facility] Last Admin: 07/08/24 08:16 Dose: 40 mg Quetiapine Fumarate (Quetiapine 25 Mg Tablet) 50 mg PO BEDTIME [facility] Last Admin: 07/07/24 21:08 Dose: 50 mg Succinylcholine Chloride (Succinylcholine 20 Mg/Ml Sdv 10ml) 100 mg IVP NOW ONE Stop: 07/06/24 04:07 Last Admin: 07/06/24 04:12 Dose: 100 mg Vancomycin HCl (Vancomycin 1,000 Mg Sdv (Pharmacy Mix)) 0 mg XX PRN PRN PRN Reason: Pharmacy to Dose Venlafaxine HCl (Venlafaxine 75 Mg Tablet) 150 mg PO QAM [facility] Last Admin: 07/08/24 05:59 Dose: 150 mg Allergies No Known Allergies Allergy (Verified 06/25/24 18:43) Home Medications ibuprofen 200 mg tablet 400 mg PO Q6H PRN Pain 11/18/23 [History Confirmed 07/06/24] cetirizine 10 mg tablet (Zyrtec) 10 mg PO DAILY PRN Allergic Symptoms 03/21/24 [History Confirmed 07/06/24] buspirone 15 mg tablet 15 mg PO TID 30 days #90 tabs 06/20/24 [Rx Confirmed 07/06/24] lithium carbonate 300 mg capsule 300 mg PO BID 30 days #60 caps 06/20/24 [Rx Confirmed 07/06/24] quetiapine 400 mg tablet (Seroquel) 400 mg PO 2100 #30 tabs 07/01/24 [Rx Confirmed 07/06/24] venlafaxine 150 mg capsule,extended release 24 hr 150 mg PO DAILY #30 caps 07/01/24 [Rx Confirmed 07/06/24] venlafaxine 75 mg capsule,extended release 24 hr (Effexor XR) 75 mg PO QAM #30 caps 07/01/24 [Rx Confirmed 07/06/24] Discharge Plan Discharge Patient Disposition: Xfer Short-Term Hosp Condition: Stable Prescriptions: No Action buspirone 15 mg tablet 15 mg PO TID 30 Days Qty: 90 1RF Rx Instructions: Take one tablet by mouth three times daily at least 6 hours apart lithium carbonate 300 mg capsule 300 mg PO BID 30 Days Qty: 60 1RF Rx Instructions: Take one capsule by mouth twice a day-morning and evening quetiapine [Seroquel] 400 mg tablet 400 mg PO 2100 Qty: 30 1RF venlafaxine 150 mg capsule,extended release 24hr 150 mg PO DAILY Qty: 30 1RF venlafaxine [Effexor XR] 75 mg capsule,extended release 24hr 75 mg PO QAM Qty: 30 1RF ibuprofen 200 mg Tablet 400 mg PO Q6H PRN (Reason: Pain) cetirizine [Zyrtec] 10 mg tablet 10 mg PO DAILY PRN (Reason: Allergic Symptoms) Discharge Orders: Transfer Out of Facility (Order); Ordered 07/08/24 Ordered By: Henrique Becker Patient Instructions: Opioid Safety Transfer Attestations Time Spent in Transfer Care: critical care time Critical Care Time (min): 60 Specific Discharge Activities: educating and/or supporting family/caregiver, discussing with pcp/other providers, discussing with renal case manager/social workers/dc planners, documenting/other paperwork and evaluating patient/reviewing data Quality Metrics Clinical Quality Measures [ No reported AMI, CVA or VTE this stay] Coding Level of Care Code Acute Code for Chg Fwd Diagnoses Intentional drug overdose T50.902A Suicide attempt T14.91XA Acute respiratory failure J96.00 Drug overdose T50.902A Encounter type: initial encounter Injury intent: intentional self-harm ARDS (adult respiratory distress syndrome) J80
[2024-07-08] MEDS: fentaNYL 2,500 MCG/250 ML BAG 17.5 MCG IV (21:02)
[2024-07-08] MEDS: propofol 1,000 MG/100 ML INJ 41.91 MG IV ×2 (21:35→23:35)
[2024-07-08] MEDS: vancomycin 1,250 MG/250 ML PIGGYBACK 166.67 MG IV (22:37)
--- NOTE | 2024-07-08 23:00 | PC.NURSE ---
Addendum entered by Melvi Serrano RN 07/09/24 03:42: Verified consent obtained from Aly for transfer to [facility]. Original Note: Consent for transfer obtained from Aly, patient's mother, over the phone with myself and a second nurse, Abdoul Serrano RN.
[2024-07-09] VITALS (7 sets, daily range): BP systolic 97–103; BP diastolic 60–64; PULSE 76–80; RESP 14–17; TEMP 37.3–37.9; O2SAT 94–98
--- NOTE | 2024-07-09 00:10 | PC.NURSE ---
Report called to Trisha at [facility] for room 5116 on 6A.
[2024-07-09] MEDS: propofol 1,000 MG/100 ML INJ 41.91 MG IV (00:39)
--- NOTE | 2024-07-09 02:29 | PC.NURSE ---
[employer] lo: 10/18 2028: 10/18 2050: 10/18 2107: 10/18 2122: 10/18 2138: 10/18 2155: 10/18 2210: 09/17 2235: 09/17 2254: 09/17 2330: 08/20 2345: 08/20 0000: 08/20 0015: 08/20 0030: 08/20 0045: 08/20 0100: 08/20
--- NOTE | 2024-07-09 03:19 | PC.NURSE ---
Patient left with EMS at 0105, with sedation and paralytic medications to ensure enough for the trip to [facility]. Report given to EMS crew and questions answered. Patient belongings in a clear bag also sent with patient. Patient's mother was called to advise of transfer and room number in [facility].
== END 2024-07-09 01:05 | disposition short-term general hospital (02) | DRG 917 ==
LOC: ER 05:23 → ICU 06:19
PROVIDERS: Student in an Organized Health Care Education/Training Program; Admitting Provider Family Medicine; Emergency Provider Emergency Medicine; Visit Provider Student in an Organized Health Care Education/Training Program
DX: T43.592A Poisoning by other antipsychotics and neuroleptics, intentional self-harm, initial encounter (principal); J80 Acute respiratory distress syndrome; F43.12 Post-traumatic stress disorder, chronic; F42.9 Obsessive-compulsive disorder, unspecified; F31.9 Bipolar disorder, unspecified; I45.81 Long QT syndrome
CPT/HCPCS: 36415; 36416; 36600; 51702; 70450; 71045; 71275; 80051; 80053; 80061; 80178; 80306; 80307; 81001; 82330; 82805; 82962; 83036; 83605; 83735; 83880; 84145; 84443; 84484; 85025; 86140; 87040; 87070; 87077; 87106; 87186; 87205; 87806; 93005; 93306; 94002; 94003; 94640; 94669; 94799; 96365; 96366; 96367; 96372; 96374; 96376; 99291; 99292; J0330; J1650; J2250; J2470; J2543; J2704; J2919; J3010; J3370; J3490; J7030; J7608; J7614; J7626; J7644

== ENCOUNTER → 2024-07-30 16:01 | Outpatient (BNVA) | payer MEDICAID, SELFPAY | PROVIDERS: Visit Provider Psychiatry & Neurology Neurology | DX: Z51.81 Encounter for therapeutic drug level monitoring (principal) | CPT/HCPCS: 80164 ==

== ENCOUNTER 2024-08-05 01:20 | Emergency (ER) | payer MEDICAID, SELFPAY ==
[2024-08-05] VITALS (10 sets, daily range): BP systolic 112–167; BP diastolic 56–87; PULSE 65–94; RESP 16–20; TEMP 36.7; O2SAT 95–98; BMI 29.5
[2024-08-05 02:22] LABS: Basophils % 0.2 %; Eosinophils % 0.3 %; Hematocrit 42.6 % (37-53); Lymphocytes # 1.1 10^3/uL (0.8-4.8); Lymphocytes % 17.7 %; Mean Corpuscular HGB Conc 31.5 g/dL (30-55); Mean Corpuscular Hemoglobin 30.4 pg (27-33); Mean Corpuscular Volume 96.6 fl (82-101); Monocytes # 0.2 10^3/uL (0.2-0.9); Neutrophils # 4.94 10^3/uL (1.8-7.7); Neutrophils % 78.6 %; Nucleated Red Blood Cells % 0 %; Platelet Count 322 10^3/cmm (157-399); Red Blood Count 4.41 10^6/uL (3.85-5.65); Red Cell Distribution Width 13.9 % (12.1-15.1); White Blood Count 6.28 10^3/uL (3.29-11.43)
[2024-08-05 02:38] LABS: Bilirubin Urine Negative (Negative); Blood Urine Negative (Negative); Glucose Urine UA Negative (Normal); Ketones Urine Trace (Negative); Leukocyte Esterase Urine Negative (Negative); Nitrate Urine Negative (Negative); Protein Urine 1+ (Negative); Urine Appearance Cloudy (CLEAR); Urine Color Yellow (Yellow); pH Urine 8.5 (5-7)
[2024-08-05 02:43] LABS: Bacteria Urine None Seen /hpf; Hyaline Casts Urine 2.46 /lpf; RBC Urine 0-2 /hpf (0-2); Squamous Epithelial Cell Urine 0-5 /hpf (0-5); WBC Urine 0-5 /hpf (0-5)
[2024-08-05 02:43] LABS: Alanine Aminotransferase 141 U/L (0-41); Albumin Level 4.2 g/dL (3.5-5.2); Alkaline Phosphatase 129 U/L (40-130); Aspartate Amino Transferase 48 U/L (0-40); Blood Urea Nitrogen 7 mg/dL (6-20); Calcium 9.4 mg/dL (8.5-10.5); Carbon Dioxide 21 mmol/L (22-29); Chloride 100 mmol/L (98-107); Creatinine Clr Calc Pharmacy 216.8092; Globulin 2.8 g/dL (1.3-4.6); Glomerular Filtration Rate 170.1 mL/min (90-130); Glucose 104 mg/dL (65-115); Osmolality Calculated 284 mOsm/kg (285-295); Sodium 138 mmol/L (136-145); Total Bilirubin 0.2 mg/dL (0.15-1.2)
[2024-08-05 02:50] LABS: Anion Gap 21.9 (5-19); Potassium 4.9 mmol/L (3.5-5.1)
[2024-08-05] MEDS: prochlorperazine 10 mg/2 mL Inj 5 MG IVP (02:57)
[2024-08-05] MEDS: orphenadrine 30 mg/mL Inj 2 mL 60 MG IVP (02:58)
[2024-08-05] MEDS: dexamethasone 4 mg/mL INJ IVP (03:02)
[2024-08-05] MEDS: ketorolac 30 mg/mL INJ 15 MG IVP (03:09)
[2024-08-05] MEDS: sodium chloride 0.9% 1,000 ML 999 ML IV (03:11)
--- NOTE | 2024-08-05 05:13 | ED_ITS ---
HPI - Headache 2 General: Chief Complaint: Headache Stated Complaint: HEADACHE Time Seen by Provider: 08/05/24 01:57 Source: patient Mode of arrival: ambulatory Limitations: no limitations History of Present Illness: Severe headache with tightness of the right neck and numbness of the left occiput. Reports has had occasional migraines in the past but is not a regular problem. Does not take any medications for migraines. Recently overdosed on Seroquel and was in the ICU for couple weeks. Is had some headache since that time. No vision changes. Has caused him to vomit a few times. Related Data Home Medications Medication Instructions Recorded Confirmed ibuprofen 200 mg tablet 400 mg PO Q6H PRN Pain 11/18/23 08/01/24 cetirizine 10 mg tablet (Zyrtec) 10 mg PO DAILY PRN Allergic 03/21/24 08/01/24 Symptoms buspirone 10 mg tablet 10 mg PO BID 07/30/24 08/01/24 clonazepam 0.5 mg tablet (Klonopin) 0.5 mg PO BID 07/30/24 08/01/24 divalproex 500 mg tablet,delayed 500 mg PO BID 07/30/24 08/01/24 release (Depakote) hydroxyzine HCl 50 mg tablet 50 mg PO Q4H PRN 07/30/24 08/01/24 propranolol 20 mg tablet 20 mg PO BID 07/30/24 08/01/24 trazodone 100 mg tablet 100 mg PO DAILY 07/30/24 08/01/24 Allergies Allergy/AdvReac Type Severity Reaction Status Date / Time No Known Allergies Allergy Verified 08/01/24 10:04 Review of Systems 2 General: Reports: 10 or more systems reviewed and unremarkable except in HPI and below PFSH ED 2 PFSH: Medical History (Updated 08/05/24 @ 05:39 by Bandar Palacios MD) Psychiatric care History of OCD (obsessive compulsive disorder) Depression Family History (Updated 08/01/24 @ 11:02 by Dori Sims RN) Other Cancer Hypertension Social History (Updated 08/01/24 @ 11:08 by Dori Sims RN) Smoking and tobacco/nicotine status: current every day tobacco/nicotine user cigarettes Packs smoked per day: 10 Years cigarettes smoked: 10, e-cigarettes E- Cigarette Details: e-cigarette and with nicotine E-cig/vape details: 10,000 puff last only a week and smokeless tobacco Smokeless tobacco user: chewing tobacco Smokeless tobacco details: from time to time Quit status (tobacco/nicotine): considering quitting Second hand smoke exposure: Yes Alcohol intake: never Substance/Drug Use: current Substance/Drug use frequency: daily Adopted: No Caregiver/support person: No Lives independently: Yes Household members: family Housing: House Marital status: Single Number of children: 0 Number of grandchildren: 0 Highest education level completed: Some College, No Degree service: No Current occupational status: other Details: filing for disability Pets and animals: Yes Pets & animals: cat(s) and dog(s) Leisure activites: music and other Leisure activities details: watching TV Sexually active: No Do you think of yourself as: Straight/Heterosexual Current gender identity: Male Patricia/Sikh: Other Special patricia needs: No Agree to transfusion: Yes Physical Exam 2 Const: COMMON NORMALS: no acute distress, average body habitus, patient oriented x3, healthy appearing, alert and well nourished GENERAL APPEARANCE: well kempt and well developed HENMT: COMMON NORMALS: normocephalic, atraumatic, external ears normal and moist oral mucous membranes HEAD & SCALP: normocephalic and atraumatic E XTERNAL EAR: Yes external ears normal Eye: COMMON NORMALS: Equal, round and reactive pupils present, EOMs intact bilaterally and conjunctivae normal CONJUNCTIVA: Yes conjunctivae normal P UPIL: Yes Equal, round and reactive pupils present Neck/C-Spine: COMMON NORMALS: full ROM, no lymphadenopathy and supple Chest: CHEST: Yes Symmetrical chest wall rise and No Surgical scars present (Chest) Resp: COMMON NORMALS: normal respiratory effort, No retractions, No use of accessory muscles and clear to auscultation bilaterally AUSCULTATION: clear to auscultation bilaterally Cardio: COMMON NORMALS: regular rate, regular rhythm, S1 normal heart sound present, S2 normal heart sound present, No gallops present (Cardio), No clicks present (Cardio), No murmurs present (Cardio) and No rub (Cardio) RATE: r egular rate RHYTHM: regular rhythm HEART SOUNDS: S1 normal heart sound present, S2 normal heart sound present and no murmurs PERIPHERAL PULSES: o ther (Radial pulses 2+ and symmetric) GI: COMMON NORMALS: Soft to palpation, non-tender and no masses INSPECTION: No abdominal distension PALPATION: Yes Soft to palpation, No Guarding due to palpation present (GI) and No Rebound tenderness present : COMMON NORMALS: Yes no CVA tenderness BLADDER/KIDNEY EXAM: Yes no CVA tenderness Back/Pelvis: COMMON NORMALS: no CVA tenderness Extremity: COMMON NORMALS: normal to inspection, full ROM, capillary refill normal and no clubbing, cyanosis or edema Neuro: COMMON NORMALS: patient oriented x3 SENSORIUM/ORIENTATION: Yes alert Psych: APPEARANCE: Yes well kempt Skin: COMMON NORMALS: no rashes or lesions noted, no wounds, turgor normal and no jaundice GENERAL SKIN EXAM: no rashes or lesions noted and turgor normal Course 2 Vital Signs: Vital signs: Vital Signs Temperature 98.1 F 08/05/24 01:22 Pulse Rate 85 08/05/24 04:00 Respiratory Rate 20 H 08/05/24 03:00 Blood Pressure 122/60 08/05/24 04:00 Pulse Oximetry 98 08/05/24 04:00 Oxygen Delivery Me thod Room Air 08/05/24 03:30 MDM - Headache Medical Decision Making Patient severe headache likely tension and likely related to his prolonged ICU stay recently. Patient will be given migraine cocktail and will follow-up on how it works. Patient much improved headache free. Will be discharged. Differential Diagnosis Likely migraine, tension headache and headache Medical Records I reviewed the patient's medical records. Lab Data I reviewed the patient's lab results. 08/05/24 02:00 08/05/24 02:00 Laboratory Results WBC 6.28 10^3/uL (3.29-11.43) 08/05/24 02:00 RBC 4.41 10^6/uL (3.85-5.65) 08/05/24 02:00 Hgb 13.40 g/dL (11.27-16.99) 08/05/24 02:00 Hct 42.6 % (37-53) 08/05/24 02:00 MCV 96.6 fl (82-101) 08/05/24 02:00 MCH 30.4 pg (27-33) 08/05/24 02:00 MCHC 31.5 g/dL (30-55) 08/05/24 02:00 RDW 13.9 % (12.1-15.1) 08/05/24 02:00 Plt Count 322 10^3/cmm (157-399) 08/05/24 02:00 MPV 9.0 fL (7.4-10.4) 08/05/24 02:00 Neut % (Auto) 78.6 % 08/05/24 02:00 Lymph % (Auto) 17.7 % 08/05/24 02:00 [place] % (Auto) 3.0 % 08/05/24 02:00 Eos % (Auto) 0.3 % 08/05/24 02:00 Baso % (Auto) 0.2 % 08/05/24 02:00 Neut # (Auto) 4.94 10^3/uL (1.8-7.7) 08/05/24 02:00 Lymph # (Auto) 1.1 10^3/uL (0.8-4.8) 08/05/24 02:00 [place] # (Auto) 0.2 10^3/uL (0.2-0.9) 08/05/24 02:00 Eos # (Auto) 0.0 10^3/uL (0.0-0.8) 08/05/24 02:00 Baso # (Auto) 0.0 10^3/uL (0.0-0.1) 08/05/24 02:00 Nucleated RBC % (auto) 0 % 08/05/24 02:00 Nucleated RBCs # 0.0 /100WBC 08/05/24 02:00 Sodium 138 mmol/L (136-145) 08/05/24 02:00 Potassium 4.9 mmol/L (3.5-5.1) 08/05/24 02:00 Chloride 100 mmol/L (98-107) 08/05/24 02:00 Carbon Dioxide 21 mmol/L (22-29) L 08/05/24 02:00 Anion Gap 21.9 (5-19) H 08/05/24 02:00 BUN 7 mg/dL (6-20) 08/05/24 02:00 Creatinine 0.6 mg/dL (0.7-1.2) L 08/05/24 02:00 GFR Calculation 170.1 mL/min (90-130) H 08/05/24 02:00 Glucose 104 mg/dL (65-115) 08/05/24 02:00 Calculated Osmolality 284 mOsm/kg (285-295) L 08/05/24 02:00 Calcium 9.4 mg/dL (8.5-10.5) 08/05/24 02:00 Total Bilirubin 0.2 mg/dL (0.15-1.2) 08/05/24 02:00 AST 48 U/L (0-40) H 08/05/24 02:00 ALT 141 U/L (0-41) H 08/05/24 02:00 Alkaline Phosphatase 129 U/L (40-130) 08/05/24 02:00 Total Protein 7.0 g/dL (6.6-8.7) 08/05/24 02:00 Albumin 4.2 g/dL (3.5-5.2) 08/05/24 02:00 Globulin 2.8 g/dL (1.3-4.6) 08/05/24 02:00 Urine Color Yellow (Yellow) 08/05/24 02: Urine Appearance Cloudy (CLEAR) A 08/05/24 02:27 Urine pH 8.5 (5-7) A 08/05/24 02:27 Ur Specific [place] 1.020 (1.005-1.030) 08/05/24 02: Urine Protein 1+ (Negative) A 08/05/24 02:27 Urine Glucose (UA) Negative (Normal) 08/05/24 02: Urine Ketones Trace (Negative) 08/05/24 02: Urine Blood Negative (Negative) 08/05/24 02: Urine Nitrate Negative (Negative) 08/05/24 02:27 Urine Bilirubin Negative (Negative) 08/05/24 02: Urine Urobilinogen 1.0 mg/dL (Negative) 08/05/24 02:27 Ur Leukocyte Esterase Negative (Negative) 08/05/24 02: Urine RBC 0-2 /hpf (0-2) 08/05/24 02:27 Urine WBC 0-5 /hpf (0-5) 08/05/24 02:27 Ur Squamous Epith Cells 0-5 /hpf (0-5) 08/05/24 02: Amorphous Sediment Not Reportable 08/05/24 02:27 Urine Bacteria None seen /hpf (NONE) 08/05/24 02:27 Hyaline Casts 2.46 /lpf 08/05/24 02:27 No radiology studies performed this visit Discharge Plan Discharge Patient Disposition: Home Clinical Impression: Headache Qualifiers: Headache type: tension-type Headache chronicity pattern: acute headache I ntractability: not intractable Qualified Code(s): G44.209 - Tension-type headache, unspecified, not intractable Condition: Stable Prescriptions: No Action buspirone 10 mg tablet 10 mg PO BID clonazepam [Klonopin] 0.5 mg tablet 0.5 mg PO BID divalproex [Depakote] 500 mg tablet,delayed release (DR/EC) 500 mg PO BID propranolol 20 mg tablet 20 mg PO BID trazodone 100 mg tablet 100 mg PO DAILY hydroxyzine HCl 50 mg tablet 50 mg PO Q4H PRN ibuprofen 200 mg Tablet 400 mg PO Q6H PRN (Reason: Pain) cetirizine [Zyrtec] 10 mg tablet 10 mg PO DAILY PRN (Reason: Allergic Symptoms) Discharge Orders: Discharge ED (Routine); Ordered 08/05/24 Ordered By: Bandar Palacios Patient Instructions: Acute Headache (ED), Pain Management Coding Level of Care Code ED Hand Button Splitter for Nish Stapleton
== END 2024-08-05 05:57 | disposition home or self-care (01) ==
PROVIDERS: Emergency Provider Emergency Medicine
DX: G44.209 Tension-type headache, unspecified, not intractable (principal); F17.290 Nicotine dependence, other tobacco product, uncomplicated
CPT/HCPCS: 36415; 80053; 81001; 85025; 96374; 96375; 99284; J0780; J1100; J1885; J2360; J7030

== ENCOUNTER 2024-08-08 11:48 | Outpatient (CLI) | payer MEDICAID, SELFPAY ==
[2024-08-05 13:09] VITALS: BP 124/79; BMI 30.4
[2024-08-08 13:05] LABS: Alanine Aminotransferase 71 U/L (0-41); Albumin Level 4.2 g/dL (3.5-5.2); Alkaline Phosphatase 103 U/L (40-130); Blood Urea Nitrogen 8 mg/dL (6-20); Calcium 9.5 mg/dL (8.5-10.5); Carbon Dioxide 25 mmol/L (22-29); Chloride 103 mmol/L (98-107); Globulin 2.8 g/dL (1.3-4.6); Glomerular Filtration Rate 209.9 mL/min (90-130); Glucose 77 mg/dL (65-115); Osmolality Calculated 285 mOsm/kg (285-295); Sodium 139 mmol/L (136-145); Total Bilirubin 0.2 mg/dL (0.15-1.2)
[2024-08-08 13:09] LABS: Anion Gap 15.6 (5-19); Potassium 4.6 mmol/L (3.5-5.1)
[2024-08-08 13:10] LABS: Aspartate Amino Transferase 39 U/L (0-40)
== END 2024-08-08 11:49 | disposition home or self-care (01) ==
LOC: LAB 11:49
PROVIDERS: Visit Provider Nurse Practitioner Psychiatric/Mental Health
DX: Z79.899 Other long term (current) drug therapy (principal)
CPT/HCPCS: 36415; 80053

== ENCOUNTER 2024-10-01 18:38 | Emergency (ER) | payer MEDICAID, SELFPAY ==
[2024-09-25 10:36] VITALS: BP 124/79; BMI 30.4
[2024-10-01] VITALS (7 sets, daily range): BP systolic 120–145; BP diastolic 71–91; PULSE 57–77; RESP 15–18; TEMP 36.6; O2SAT 94–98; BMI 30.2
--- NOTE | 2024-10-01 18:54 | W.ED.HA ---
HPI - Headache General: Chief Complaint: Headache Stated Complaint: Head Pain Time Seen by Provider: 10/01/24 18:41 Source: patient Mode of arrival: EMS Limitations: no limitations History of Present Illness: Patient is a 23-year-old male with a past medical history of psychiatric care who is brought into the emergency department by ambulance due to a headache that has been intermittent for the past 3 months. Patient has been seen here in the ED prior for headache, last was in July where he was seen status post acute respiratory distress syndrome from Seroquel overdose, was in the ICU at that time. Patient notes that since then he has been having these headaches, and has had a head CT in June that did not show any abnormalities. He notes that he has not seen his primary care for these headaches. Recently has been getting dizzy when he stands up and feels that he is going to pass out. He comments that he thinks he just needs to see a specialist for this, and does not want imaging of the head again. States that in July he was started on Depakote and has been taking this as prescribed. No other new medications or substance abuse reported. No recent head trauma. He is not reporting any fevers or neurological deficits. Vitals within normal limits at this time. He notes that the headache is specifically worse with light or sound. While it is intermittent, he notes that it will come on very quickly with exacerbations. MD elicited complaint: headache Onset (ago): month(s) Location: diffuse Severity: severe Quality & Timing: intermittent Exacerbating factors: light and noise Relieving factors: rest Associated symptoms: Reports pre-syncope; Deny chest pain, fever(s), lightheadedness, nausea, rash or vomiting Treatments prior to arrival: none Related Data Home Medications ?Medication ?Instructions ?Recorded ?Confirmed ibuprofen 200 mg tablet 400 mg PO Q6H PRN Pain 11/18/23 09/10/24 cetirizine 10 mg tablet (Zyrtec) 10 mg PO DAILY PRN Allergic 03/21/24 09/10/24 Symptoms Previous Rx's ?Medication ?Instructions ?Recorded buspirone 10 mg tablet 10 mg PO BID #60 tabs 09/10/24 divalproex 500 mg tablet,delayed 500 mg PO BID 30 days #60 tabs 09/10/24 release (Depakote) hydroxyzine HCl 50 mg tablet 50 mg PO BID PRN anxiety #60 tabs 09/10/24 propranolol 20 mg tablet 20 mg PO BID PRN anxiety #60 tabs 09/10/24 trazodone 100 mg tablet 100 mg PO .q hs PRN insomnia 30 09/10/24 days #30 tabs venlafaxine 150 mg 150 mg PO DAILY #30 caps 09/19/24 capsule,extended release 24 hr venlafaxine 75 mg capsule,extended 75 mg PO DAILY #30 caps 09/19/24 release 24 hr Allergies Allergy/AdvReac Type Severity Reaction Status Date / Time No Known Allergies Allergy Verified 10/01/24 18:43 Review of Systems General: Reports: 10 or more systems reviewed and unremarkable except in HPI and below Const: Denies: fever(s), chills or fatigue Eyes: Denies: change in vision ENMT: Denies: throat pain, ear or mastoid pain or nasal discharge Card: Reports: pre-syncope; Denies: chest pain, palpitations, swelling of feet/ankles or lightheadedness Resp: Denies: dyspnea, productive cough or wheezing GI: Denies: abdominal pain, nausea, vomiting, diarrhea or constipation : Denies: flank pain, difficulty urinating, dysuria or urinary frequency Musc: Denies: neck pain, back pain or joint pain Skin/Breast: Denies: rash Neuro: Reports: headache(s) and dizziness; Denies: numbness in extremities, weakness in extremities, lack of coordination or seizure-like activity [facility] ED PFSH: Medical History Psychiatric care History of OCD (obsessive compulsive disorder) Depression Family History Other Cancer Hypertension Social History Smoking and tobacco/nicotine status: current every day tobacco/nicotine user cigarettes Packs smoked per day: 10 Years cigarettes smoked: 10, e-cigarettes E-Cigarette Details: e-cigarette and with nicotine E-cig/vape details: 10,000 puff last only a week and smokeless tobacco Smokeless tobacco user: chewing tobacco Smokeless tobacco details: from time to time Quit status (tobacco/nicotine): considering quitting Second hand smoke exposure: Yes Alcohol intake: never Substance/Drug Use: current Substance/Drug use frequency: daily Adopted: No Caregiver/support person: No Lives independently: Yes Household members: family Housing: House Marital status: Single Number of children: 0 Number of grandchildren: 0 Highest education level completed: Some College, No Degree service: No Current occupational status: other Details: filing for disability Pets and animals: Yes Pets & animals: cat(s) and dog(s) Leisure activites: music and other Leisure activities details: watching TV Sexually active: No Do you think of yourself as: Straight/Heterosexual Current gender identity: Male Patricia/Orthodoxy: Other Special patricia needs: No Agree to transfusion: Yes Physical Exam Const: COMMON NORMALS: no acute distress, patient oriented x3 and no limitations GENERAL APPEARANCE: cooperative, comfortable and well developed ORIENTATION/CONSCIOUSNESS: Yes awake, Yes oriented to person, Yes oriented to place and Yes oriented to time HENMT: COMMON NORMALS: normocephalic, atraumatic and hearing grossly normal bilaterally HEAD & SCALP: normocephalic and atraumatic Eye: COMMON NORMALS: Equal, round and reactive pupils present, EOMs intact bilaterally and conjunctivae normal CONJUNCTIVA: Yes conjunctivae normal PUPIL: Yes Equal, round and reactive pupils present Neck/C-Spine: COMMON NORMALS: full ROM, supple and no JVD Resp: COMMON NORMALS: normal respiratory effort, No retractions, No use of accessory muscles and clear to auscultation bilaterally AUSCULTATION: clear to auscultation bilaterally Cardio: COMMON NORMALS: no JVD, regular rate, regular rhythm, No clicks present (Cardio), No murmurs present (Cardio) and No rub (Cardio) RATE: regular rate RHYTHM: regular rhythm GI: COMMON NORMALS: Normal to inspection, nondistended, normoactive bowel sounds present, Soft to palpation and non-tender AUSCULTATION: Yes normoactive bowel sounds PALPATION: Yes Soft to palpation RECTAL EXAM: Yes deferred Extremity: COMMON NORMALS: normal to inspection, full ROM and capillary refill normal Neuro: COMMON NORMALS: patient oriented x3, CN's II-XII intact bilaterally, moves all extremities, no focal motor deficits and no sensory deficits noted SENSORIUM/ORIENTATION: Yes oriented to person, Yes oriented to place and Yes oriented to time Psych: COMMON NORMALS: mental status grossly normal and Normal thought process present THOUGHT PROCESS: Normal thought process present Skin: COMMON NORMALS: no rashes or lesions noted GENERAL SKIN EXAM: no rashes or lesions noted Course Vital Signs: Vital signs: Vital Signs Temperature 97.9 F 10/01/24 18:39 Pulse Rate 60 10/01/24 20:30 Respiratory Rate 15 10/01/24 20:30 Blood Pressure 129/71 10/01/24 20:30 Pulse Oximetry 98 10/01/24 20:30 Oxygen Delivery Me thod Room Air 10/01/24 18:39 MDM - Headache Medical Decision Making This patient presented by ambulance for persistent headache for the past 3 months. Was in the ICU late last year for Seroquel overdose, he states headache has been persistent since. He has also since had a normal head CT. He did specifically right stating he did not want a head CT just wanted referral to neurology for further workup. I told him we would check some labs and try to treat his headache to see if there is any improvement. His labs are unremarkable and valproic acid level was therapeutic. Neurologically intact on exam. I do suspect a migraine headache and do think that he needs further workup with neurology, so we will refer him and have them call to schedule an appointment. Patient agrees with this plan and verbalizes understanding to the return precautions. Lab Data 10/01/24 19:03 10/01/24 19:38 Laboratory Results WBC 7.11 10^3/uL (3.29-11.43) 10/01/24 19:03 RBC 5.08 10^6/uL (3.85-5.65) 10/01/24 19:03 Hgb 15.40 g/dL (11.27-16.99) 10/01/24 19:03 Hct 45.9 % (37-53) 10/01/24 19:03 MCV 90.4 fl (82-101) 10/01/24 19:03 MCH 30.3 pg (27-33) 10/01/24 19:03 MCHC 33.6 g/dL (30-55) 10/01/24 19:03 RDW 11.9 % (12.1-15.1) L 10/01/24 19:03 Plt Count 315 10^3/cmm (157-399) 10/01/24 19:03 MPV 9.2 fL (7.4-10.4) 10/01/24 19:03 Neut % (Auto) 55.9 % 10/01/24 19:03 Lymph % (Auto) 37.4 % 10/01/24 19:03 [place] % (Auto) 5.5 % 10/01/24 19:03 Eos % (Auto) 0.6 % 10/01/24 19:03 Baso % (Auto) 0.3 % 10/01/24 19:03 Neut # (Auto) 3.98 10^3/uL (1.8-7.7) 10/01/24 19:03 Lymph # (Auto) 2.7 10^3/uL (0.8-4.8) 10/01/24 19:03 [place] # (Auto) 0.4 10^3/uL (0.2-0.9) 10/01/24 19:03 Eos # (Auto) 0.0 10^3/uL (0.0-0.8) 10/01/24 19:03 Baso # (Auto) 0.0 10^3/uL (0.0-0.1) 10/01/24 19:03 Nucleated RBC % (auto) 0 % 10/01/24 19:03 Nucleated RBCs # 0.0 /100WBC 10/01/24 19:03 Sodium 142 mmol/L (136-145) 10/01/24 19:38 Potassium 4.4 mmol/L (3.5-5.1) 10/01/24 19:38 Chloride 105 mmol/L (98-107) 10/01/24 19:38 Carbon Dioxide 22 mmol/L (22-29) 10/01/24 19:38 Anion Gap 19.4 (5-19) H 10/01/24 19:38 BUN 13 mg/dL (6-20) 10/01/24 19:38 Creatinine 0.7 mg/dL (0.7-1.2) 10/01/24 19:38 GFR Calculation 142.4 mL/min (90-130) H 10/01/24 19:38 Glucose 85 mg/dL (65-115) 10/01/24 19:38 Calculated Osmolality 293 mOsm/kg (285-295) 10/01/24 19:38 Calcium 9.8 mg/dL (8.5-10.5) 10/01/24 19:38 Total Bilirubin 0.2 mg/dL (0.15-1.2) 10/01/24 19:38 AST 17 U/L (0-40) 10/01/24 19:38 ALT 8 U/L (0-41) 10/01/24 19:38 Alkaline Phosphatase 76 U/L (40-130) 10/01/24 19:38 Total Protein 7.6 g/dL (6.6-8.7) 10/01/24 19:38 Albumin 5.0 g/dL (3.5-5.2) 10/01/24 19:38 Globulin 2.6 g/dL (1.3-4.6) 10/01/24 19:38 Valproic Acid 65.5 ug/mL (50-100) 10/01/24 19:38 No radiology studies performed this visit Discharge Plan Discharge Patient Disposition: Home Clinical Impression: Headache Condition: Stable Prescriptions: No Action divalproex [Depakote] 500 mg tablet,delayed release (DR/EC) 500 mg PO BID 30 Days Qty: 60 2RF trazodone 100 mg tablet 100 mg PO .q hs PRN (Reason: insomnia) 30 Days Qty: 30 2RF buspirone 10 mg tablet 10 mg PO BID Qty: 60 2RF Rx Instructions: Take one tablet twice a day propranolol 20 mg tablet 20 mg PO BID PRN (Reason: anxiety) Qty: 60 2RF hydroxyzine HCl 50 mg tablet 50 mg PO BID PRN (Reason: anxiety) Qty: 60 2RF venlafaxine 75 mg capsule,extended release 24hr 75 mg PO DAILY Qty: 30 0RF venlafaxine 150 mg capsule,extended release 24hr 150 mg PO DAILY Qty: 30 2RF ibuprofen 200 mg Tablet 400 mg PO Q6H PRN (Reason: Pain) cetirizine [Zyrtec] 10 mg tablet 10 mg PO DAILY PRN (Reason: Allergic Symptoms) Discharge Orders: Discharge ED (Routine); Ordered 10/01/24 Ordered By: Saad Lehman Patient Instructions: Headache Activity Restrictions/Additional Instructions: Follow-up with neurology, await call to set up appointment. Continue taking your home medications. Make sure you are drinking plenty of fluids. Please return to the ED with any new or concerning symptoms. Print Language: Ethiopian Coding Level of Care Code ED [employer] Law Clerk for Nish Stapleton
[2024-10-01 19:11] LABS: Basophils % 0.3 %; Eosinophils % 0.6 %; Hematocrit 45.9 % (37-53); Lymphocytes # 2.7 10^3/uL (0.8-4.8); Lymphocytes % 37.4 %; Mean Corpuscular HGB Conc 33.6 g/dL (30-55); Mean Corpuscular Hemoglobin 30.3 pg (27-33); Mean Corpuscular Volume 90.4 fl (82-101); Mean Platelet Volume 9.2 fL (7.4-10.4); Monocytes # 0.4 10^3/uL (0.2-0.9); Monocytes % 5.5 %; Neutrophils # 3.98 10^3/uL (1.8-7.7); Neutrophils % 55.9 %; Nucleated Red Blood Cells % 0 %; Platelet Count 315 10^3/cmm (157-399); Red Blood Count 5.08 10^6/uL (3.85-5.65); Red Cell Distribution Width 11.9 % (12.1-15.1); White Blood Count 7.11 10^3/uL (3.29-11.43)
[2024-10-01] MEDS: ketorolac 60 mg/2 mL INJ 30 MG IVP (19:51)
[2024-10-01] MEDS: diphenhydrAMINE 50 mg/mL SDV 1mL IVP (19:52)
[2024-10-01] MEDS: ondansetron 2 mg/ML SDV 2 mL 4 MG IVP (19:53)
[2024-10-01] MEDS: dexamethasone 10 mg/mL INJ IVP (19:55)
[2024-10-01] MEDS: sodium chloride 0.9% 1,000 ML 999 ML IV (19:56)
[2024-10-01 20:10] LABS: Alanine Aminotransferase 8 U/L (0-41); Alkaline Phosphatase 76 U/L (40-130); Anion Gap 19.4 (5-19); Aspartate Amino Transferase 17 U/L (0-40); Blood Urea Nitrogen 13 mg/dL (6-20); Calcium 9.8 mg/dL (8.5-10.5); Carbon Dioxide 22 mmol/L (22-29); Chloride 105 mmol/L (98-107); Creatinine Clr Calc Pharmacy 187.9784; Globulin 2.6 g/dL (1.3-4.6); Glomerular Filtration Rate 142.4 mL/min (90-130); Glucose 85 mg/dL (65-115); Osmolality Calculated 293 mOsm/kg (285-295); Potassium 4.4 mmol/L (3.5-5.1); Sodium 142 mmol/L (136-145); Total Bilirubin 0.2 mg/dL (0.15-1.2); Total Protein 7.6 g/dL (6.6-8.7)
[2024-10-01 20:36] LABS: Valproic Acid Level 65.5 ug/mL (50-100)
--- NOTE | 2024-10-02 08:28 | DCPLANNER ---
Message sent to Neurology for a follow up- Patient is a 23-year-old male with a past medical history of psychiatric care who is brought into the emergency department by ambulance due to a headache that has been intermittent for the past 3 months. Patient has been seen here in the ED prior for headache, last was in July where he was seen status post acute respiratory distress syndrome from Seroquel overdose, was in the ICU at that time. Patient notes that since then he has been having these headaches, and has had a head CT in June that did not show any abnormalities. He notes that he has not seen his primary care for these headaches. Recently has been getting dizzy when he stands up and feels that he is going to pass out. He comments that he thinks he just needs to see a specialist for this, and does not want imaging of the head again. States that in July he was started on Depakote and has been taking this as prescribed. No other new medications or substance abuse reported. No recent head trauma. He is not reporting any fevers or neurological deficits. Vitals within normal limits at this time. He notes that the headache is specifically worse with light or sound. While it is intermittent, he notes that it will come on very quickly with exacerbations.
== END 2024-10-01 21:03 | disposition home or self-care (01) ==
PROVIDERS: Emergency Provider Physician Assistant
DX: R51.9 Headache, unspecified (principal); F17.210 Nicotine dependence, cigarettes, uncomplicated
CPT/HCPCS: 80053; 80164; 85025; 96361; 96374; 96375; 99284; J1100; J1200; J1885; J2405; J7030

== ENCOUNTER 2024-10-12 22:58 | Emergency (ER) | payer MEDICAID, SELFPAY ==
[2024-09-25 10:36] VITALS: BP 124/79; BMI 30.4
[2024-10-12 22:58] VITALS: BP 146/94; PULSE 100; RESP 17; TEMP 37.1; O2SAT 95; BMI 31.7
[2024-10-12] MEDS: OLANZapine 10 mg ODT 20 MG PO (23:24)
[2024-10-12] MEDS: LORazepam 2 mg/mL INJ 1 mL IM (23:26)
[2024-10-12 23:32] LABS: Basophils % 0.5 %; Eosinophils % 0.3 %; Hematocrit 50.6 % (37-53); Lymphocytes # 2.6 10^3/uL (0.8-4.8); Lymphocytes % 29.6 %; Mean Corpuscular HGB Conc 33.2 g/dL (30-55); Mean Corpuscular Hemoglobin 30.1 pg (27-33); Mean Corpuscular Volume 90.5 fl (82-101); Monocytes # 0.6 10^3/uL (0.2-0.9); Monocytes % 7.4 %; Neutrophils # 5.38 10^3/uL (1.8-7.7); Neutrophils % 62.1 %; Nucleated Red Blood Cells % 0 %; Platelet Count 320 10^3/cmm (157-399); Red Blood Count 5.59 10^6/uL (3.85-5.65); Red Cell Distribution Width 11.8 % (12.1-15.1); White Blood Count 8.66 10^3/uL (3.29-11.43)
[2024-10-12 23:48] LABS: Valproic Acid Level 2.8 ug/mL (50-100)
--- NOTE | 2024-10-12 23:59 | ED.C_ITS ---
Documented by User: James Zamudio DO 10/13/24 18:17 HPI - Psych 2 General: Chief Complaint: Psychiatric Symptoms Stated Complaint: SI Time Seen by Provider: 10/12/24 23:00 History of Present Illness: 23-year-old male patient who comes in [facility] [employer] [facility] office voluntarily. He has been having increasing suicidal ideations for the past few days. He has a prior suicide attempt with overdosing on Seroquel back in July requiring intubation and ventilation. He has not overdosed on any of his medications currently. He states he called help, because I do not want to get to that point again . Related Data Home Medications ?Medication ?Instructions ?Recorded ?Confirmed ibuprofen 200 mg tablet 400 mg PO Q6H PRN Pain 11/1710/13/24 cetirizine 10 mg tablet (Zyrtec) 10 mg PO DAILY PRN Al lergic 03/21/24 10/13/24 Symptoms trazodone 100 mg tablet 100 mg PO BEDTIME PRN insomn ia 10/13/24 10/13/24 Previous Rx's ?Medication ?Instructions ?Recorded buspirone 10 mg tablet 10 mg PO BID #60 tabs divalproex 500 mg tablet,delayed 500 mg PO BID 30 days #60 tabs 09/10/24 release (Depakote) hydroxyzine HCl 50 mg tablet 50 mg PO BID PRN anxiety #60 tabs 09/10/24 propranolol 20 mg tablet 20 mg PO BID PRN anxiety #60 tabs 09/10/24 venlafaxine 150 mg 150 mg PO DAILY #30 caps 01/08 capsule,extended release 24 hr venlafaxine 75 mg capsule,extended 75 mg PO DAILY #30 caps 09/19/24 release 24 hr Allergies Allergy/AdvReac Type Severity Reaction Status Date / Time No Known Allergies Allergy Verified 10/01/24 18:43 PFSH ED 2 PFSH: Medical History Psychiatric care History of OCD (obsessive compulsive disorder) Depression Family History Other Cancer Hypertension Social History Smoking and tobacco/nicotine status: current every day tobacco/nicotine user cigarettes Packs smoked per day: 10 Years cigarettes smoked: 10, e-cigarettes E- Cigarette Details: e-cigarette and with nicotine E-cig/vape details: 10,000 puff last only a week and smokeless tobacco Smokeless tobacco user: chewing tobacco Smokeless tobacco details: from time to time Quit status (tobacco/nicotine): considering quitting Second hand smoke exposure: Yes Alcohol intake: never Substance/Drug Use: current Substance/Drug use frequency: daily Adopted: No Caregiver/support person: No Lives independently: Yes Household members: family Housing: House Marital status: Single Number of children: 0 Number of grandchildren: 0 Highest education level completed: Some College, No Degree service: No Current occupational status: other Details: filing for disability Pets and animals: Yes Pets & animals: cat(s) and dog(s) Leisure activites: music and other Leisure activities details: watching TV Sexually active: No Do you think of yourself as: Straight/Heterosexual Current gender identity: Male Patricia/Islam: Other Special patricia needs: No Agree to transfusion: Yes Physical Exam 2 Const: GENERAL APPEARANCE: cooperative and anxious; not ill appearing and not frail appearing HENMT: COMMON NORMALS: normocephalic, atraumatic and Normal external nose present HEAD & SCALP: normocephalic and atraumatic FACE & SINUS: normal facial exam and face symmetric NOSE: Normal external nose present Eye: COMMON NORMALS: Equal, round and reactive pupils present and EOMs intact bilaterally PUPIL: Yes Equal, round and reactive pupils present Neck/C-Spine: GENERAL: Yes trachea midline Chest: CHEST: Yes Symmetrical chest wall rise Resp: COMMON NORMALS: normal respiratory effort, No retractions, No use of accessory muscles and clear to auscultation bilaterally AUSCULTATION: clear to auscultation bilaterally Cardio: COMMON NORMALS: regular rate and regular rhythm RATE: regular rate RHYTHM: regular rhythm GI: COMMON NORMALS: Normal to inspection, nondistended, normoactive bowel sounds present Extremity: COMMON NORMALS: no pedal edema Neuro: TAI COMA SCALE: document GCS findings Tai coma scale eye opening: Spontaneous Tai coma scale verbal response: Orientated [place] coma scale motor response: Obey commands [place] coma scale total score: 15 S ENSORY EXAM: Yes extremities (intact) Psych: COMMON NORMALS: speech normal SPEECH: Yes normal speech Skin: COMMON NORMALS: no rashes or lesions noted GENERAL SKIN EXAM: no rashes or lesions noted Course 2 Vital Signs: Vital signs: Vital Signs Temperature 98.8 F 10/12/24 22:58 Pulse Rate 100 10/12/24 22:58 Respiratory Rate 17 10/12/24 22:58 Blood Pressure 146/94 10/12/24 22:58 Pulse Oximetry 95 10/12/24 22:58 Oxygen Delivery Me thod Room Air 10/12/24 22:58 MDM - Psych Medical Decision Making Patient asked for something for anxiety on my evaluation. He is given oral Zyprexa, and Ativan intramuscular. He is voluntary at this point is suicidal. Medically appears stable. Laboratories pending. Currently, we have no beds available at this facility. Will attempt transfer once labs are returned. Laboratory is stable. The patient remains stable. He has not had to be medicated or confronted in any way here. Behaviorally, he has been fine. He is going to [place] for psychiatric evaluation. Lab Data 10/12/24 23:27 10/12/24 23:27 Laboratory Results WBC 8.66 10^3/uL (3.29-11.43) 10/12/24 23: RBC 5.59 10^6/uL (3.85-5.65) 10/12/24 23:27 Hgb 16.80 g/dL (11.27-16.99) 10/12/24 23:27 Hct 50.6 % (37-53) 10/12/24 23: MCV 90.5 fl (82-101) 10/12/24 23: MCH 30.1 pg (27-33) 10/12/24 23: MCHC 33.2 g/dL (30-55) 10/12/24 23: RDW 11.8 % (12.1-15.1) L 10/12/24 23: Plt Count 320 10^3/cmm (157-399) 10/12/24 23:27 MPV 9.0 fL (7.4-10.4) 10/12/24 23:27 Neut % (Auto) 62.1 % 10/12/24 23: Lymph % (Auto) 29.6 % 10/12/24 23:27 Elk % (Auto) 7.4 % 10/12/24 23: Eos % (Auto) 0.3 % 10/12/24 23: Baso % (Auto) 0.5 % 10/12/24 23: Neut # (Auto) 5.38 10^3/uL (1.8-7.7) 10/12/24 23: Lymph # (Auto) 2.6 10^3/uL (0.8-4.8) 10/12/24 23: Elk # (Auto) 0.6 10^3/uL (0.2-0.9) 10/12/24 23: Eos # (Auto) 0.0 10^3/uL (0.0-0.8) 10/12/24: Baso # (Auto) 0.0 10^3/uL (0.0-0.1) 10/12/24 23: Nucleated RBC % (auto) 0 % 10/12/24: Nucleated RBCs # 0.0 /100WBC 10/12/24 23: Sodium 142 mmol/L (136-145) 10/12/24 23: Potassium 4.4 mmol/L (3.5-5.1) 10/12/24 23: Chloride 105 mmol/L (98-107) 10/12/24: Carbon Dioxide 23 mmol/L (22-29) 10/12/24 23: Anion Gap 18.4 (5-19) 10/12/24 23: BUN 13 mg/dL (6-20) 10/12/24: Creatinine 0.8 mg/dL (0.7-1.2) 10/12/24 23: GFR Calculation 122.0 mL/min (90-130) 10/12/24 23: Glucose 87 mg/dL (65-115) 10/12/24: Calculated Osmolality 293 mOsm/kg (285-295) 10/12/24: Calcium 9.6 mg/dL (8.5-10.5) 10/12/24: Total Bilirubin 0.2 mg/dL (0.15-1.2) 10/12/24: AST 21 U/L (0-40) 10/12/24: ALT 21 U/L (0-41) 10/12/24 23: Alkaline Phosphatase 82 U/L (40-130) 10/12/24 23: Total Protein 8.0 g/dL (6.6-8.7) 10/12/24 23: Albumin 5.3 g/dL (3.5-5.2) H 10/12/24: Globulin 2.7 g/dL (1.3-4.6) 10/12/24: TSH 3.53 uIU/mL (0.27-4.20) 10/12/24 23: Urine Color Yellow (Yellow) 10/13/24 00:51 Urine Appearance Clear (CLEAR) 10/13/24 00:51 Urine pH 6 (5-7) 10/13/24 00:51 Ur Specific [place] 1.020 (1.005-1.030) 10/13/24 00:51 Urine Protein 1+ (Negative) H 10/13/24 00:51 Urine Glucose (UA) Norm (Normal) 10/13/24 00:51 Urine Ketones 1+ (Negative) H 10/13/24 00:51 Urine Blood Neg (Negative) 10/13/24 00:51 Urine Nitrate Negative (Negative) 10/13/24 00:51 Urine Bilirubin Neg (Negative) 10/13/24 00:51 Urine Urobilinogen Norm mg/dL (Negative) 10/13/24 00:51 Ur Leukocyte Esterase Negative (Negative) 10/13/24 00:51 Urine RBC 0-2 /hpf (0-2) 10/13/24 00:51 Urine WBC 0-5 /hpf (0-5) 10/13/24 00:51 Ur Squamous Epith Cells 0-5 /hpf (0-5) 10/13/24 00:51 Amorphous Sediment Not Reportable 10/13/24 00:51 Urine Bacteria None seen /hpf (NONE) 10/13/24 00:51 Hyaline Casts 0.81 /lpf 10/13/24 00:51 Salicylates < 0.3 mg/dL (3-10) L 10/12/24 23: Urine Opiates Screen Negative ng/mL (Negative) 10/13/24 00:51 Acetaminophen < 5.0 ug/mL (10-30) L 10/12/24 23:27 Ur Barbiturates Screen Negative ng/mL (Negative) 10/13/24 00:51 Valproic Acid 2.8 ug/mL (50-100) L 10/12/24 23:27 Ur Phencyclidine Scrn Negative ng/mL (Negative) 10/13/24 00:51 Ur Amphetamines Screen Negative ng/mL (Negative) 10/13/24 00:51 U Benzodiazepines Scrn Negative ng/mL (Negative) 10/13/24 00:51 Urine Cocaine Screen Negative ng/mL (Negative) 10/13/24 00:51 U Marijuana (THC) Screen Positive ng/mL (Negative) H 10/13/24 00:51 Ethyl Alcohol 77 mg/dL (0-10) H 10/12/24 23:27 Discharge Plan Discharge Patient Disposition: er Psychiatric Hosp Clinical Impression: Suicidal ideation Condition: Stable Prescriptions: No Action divalproex [Depakote] 500 mg tablet,delayed release (DR/EC) 500 mg PO BID 30 Days Qty: 60 2RF buspirone 10 mg tablet 10 mg PO BID Qty: 60 2RF propranolol 20 mg tablet 20 mg PO BID PRN (Reason: anxiety) Qty: 60 2RF hydroxyzine HCl 50 mg tablet 50 mg PO BID PRN (Reason: anxiety) Qty: 60 2RF venlafaxine 75 mg capsule,extended release 24hr 75 mg PO DAILY Qty: 30 0RF venlafaxine 150 mg capsule,extended release 24hr 150 mg PO DAILY Qty: 30 2RF trazodone 100 mg tablet 100 mg PO BEDTIME PRN (Reason: insomnia) ibuprofen 200 mg Tablet 400 mg PO Q6H PRN (Reason: Pain) cetirizine [Zyrtec] 10 mg tablet 10 mg PO DAILY PRN (Reason: Allergic Symptoms) Print Language: Paraguayan Coding Level of Care Code ED Customer Insight Analyst for Chg Fwd Documented by User: Thomas Alicea DO 10/13/24 14:21 HPI - Psych 2 General: Chief Complaint: Psychiatric Symptoms Stated Complaint: SI Time Seen by Provider: 10/12/24 23:00 Related Data Home Medications ?Medication ?Instructions ?Recorded ?Confirmed ibuprofen 200 mg tablet 400 mg PO Q6H PRN Pain 11/1710/13/24 cetirizine 10 mg tablet (Zyrtec) 10 mg PO DAILY PRN Al lergic 03/21/24 10/13/24 Symptoms trazodone 100 mg tablet 100 mg PO BEDTIME PRN insomn ia 10/13/24 10/13/24 Previous Rx's ?Medication ?Instructions ?Recorded buspirone 10 mg tablet 10 mg PO BID #60 tabs divalproex 500 mg tablet,delayed 500 mg PO BID 30 days #60 tabs 09/10/24 release (Depakote) hydroxyzine HCl 50 mg tablet 50 mg PO BID PRN anxiety #60 tabs 09/10/24 propranolol 20 mg tablet 20 mg PO BID PRN anxiety #60 tabs 09/10/24 venlafaxine 150 mg 150 mg PO DAILY #30 caps 01/08 capsule,extended release 24 hr venlafaxine 75 mg capsule,extended 75 mg PO DAILY #30 caps 09/19/24 release 24 hr Allergies Allergy/AdvReac Type Severity Reaction Status Date / Time No Known Allergies Allergy Verified 10/01/24 18:43 PFSH ED 2 PFSH: Medical History Psychiatric care History of OCD (obsessive compulsive disorder) Depression Family History Other Cancer Hypertension Social History Smoking and tobacco/nicotine status: current every day tobacco/nicotine user cigarettes Packs smoked per day: 10 Years cigarettes smoked: 10, e-cigarettes E- Cigarette Details: e-cigarette and with nicotine E-cig/vape details: 10,000 puff last only a week and smokeless tobacco Smokeless tobacco user: chewing tobacco Smokeless tobacco details: from time to time Quit status (tobacco/nicotine): considering quitting Second hand smoke exposure: Yes Alcohol intake: never Substance/Drug Use: current Substance/Drug use frequency: daily Adopted: No Caregiver/support person: No Lives independently: Yes Household members: family Housing: House Marital status: Single Number of children: 0 Number of grandchildren: 0 Highest education level completed: Some College, No Degree service: No Current occupational status: other Details: filing for disability Pets and animals: Yes Pets & animals: cat(s) and dog(s) Leisure activites: music and other Leisure activities details: watching TV Sexually active: No Do you think of yourself as: Straight/Heterosexual Current gender identity: Male Patricia/Islam: Other Special patricia needs: No Agree to transfusion: Yes Physical Exam 2 Neuro: TAI COMA SCALE: document GCS findings Tai coma scale total score: 15 Course 2 Vital Signs: Vital signs: Vital Signs Temperature 98.8 F 10/12/24 22:58 Pulse Rate 100 10/12/24 22:58 Respiratory Rate 17 10/12/24 22:58 Blood Pressure 146/94 10/12/24 22:58 Pulse Oximetry 95 10/12/24 22:58 Oxygen Delivery Me thod Room Air 10/12/24 22:58 MDM - Psych Lab Data 10/12/24 23:27 10/12/24 23:27 Laboratory Results WBC 8.66 10^3/uL (3.29-11.43) 10/12/24 23:27 RBC 5.59 10^6/uL (3.85-5.65) 10/12/24 23:27 Hgb 16.80 g/dL (11.27-16.99) 10/12/24 23:27 Hct 50.6 % (37-53) 10/12/24 23:27 MCV 90.5 fl (82-101) 10/12/24 23:27 MCH 30.1 pg (27-33) 10/12/24 23:27 MCHC 33.2 g/dL (30-55) 10/12/24 23:27 RDW 11.8 % (12.1-15.1) L 10/12/24 23:27 Plt Count 320 10^3/cmm (157-399) 10/12/24 23:27 MPV 9.0 fL (7.4-10.4) 10/12/24 23:27 Neut % (Auto) 62.1 % 10/12/24 23:27 Lymph % (Auto) 29.6 % 10/12/24 23:27 Elk % (Auto) 7.4 % 10/12/24 23: Eos % (Auto) 0.3 % 10/12/24 23: Baso % (Auto) 0.5 % 10/12/24 23: Neut # (Auto) 5.38 10^3/uL (1.8-7.7) 10/12/24 23: Lymph # (Auto) 2.6 10^3/uL (0.8-4.8) 10/12/24 23: Elk # (Auto) 0.6 10^3/uL (0.2-0.9) 10/12/24 23: Eos # (Auto) 0.0 10^3/uL (0.0-0.8) 10/12/24: Baso # (Auto) 0.0 10^3/uL (0.0-0.1) 10/12/24 23: Nucleated RBC % (auto) 0 % 10/12/24: Nucleated RBCs # 0.0 /100WBC 10/12/24 23: Sodium 142 mmol/L (136-145) 10/12/24 23: Potassium 4.4 mmol/L (3.5-5.1) 10/12/24 23: Chloride 105 mmol/L (98-107) 10/12/24: Carbon Dioxide 23 mmol/L (22-29) 10/12/24 23: Anion Gap 18.4 (5-19) 10/12/24 23: BUN 13 mg/dL (6-20) 10/12/24 23: Creatinine 0.8 mg/dL (0.7-1.2) 10/12/24 23: GFR Calculation 122.0 mL/min (90-130) 10/12/24 23: Glucose 87 mg/dL (65-115) 10/12/24 23: Calculated Osmolality 293 mOsm/kg (285-295) 10/12/24: Calcium 9.6 mg/dL (8.5-10.5) 10/12/24 23: Total Bilirubin 0.2 mg/dL (0.15-1.2) 10/12/24: AST 21 U/L (0-40) 10/12/24 23:27 ALT 21 U/L (0-41) 10/12/24 23: Alkaline Phosphatase 82 U/L (40-130) 10/12/24: Total Protein 8.0 g/dL (6.6-8.7) 10/12/24 23: Albumin 5.3 g/dL (3.5-5.2) H 10/12/24: Globulin 2.7 g/dL (1.3-4.6) 10/12/24: TSH 3.53 uIU/mL (0.27-4.20) 10/12/24: Urine Color Yellow (Yellow) 10/13/24 00:51 Urine Appearance Clear (CLEAR) 10/13/24 00:51 Urine pH 6 (5-7) 10/13/24 00:51 Ur Specific [place] 1.020 (1.005-1.030) 10/13/24 00:51 Urine Protein 1+ (Negative) H 10/13/24 00:51 Urine Glucose (UA) Norm (Normal) 10/13/24 00:51 Urine Ketones 1+ (Negative) H 10/13/24 00:51 Urine Blood Neg (Negative) 10/13/24 00:51 Urine Nitrate Negative (Negative) 10/13/24 00:51 Urine Bilirubin Neg (Negative) 10/13/24 00:51 Urine Urobilinogen Norm mg/dL (Negative) 10/13/24 00:51 Ur Leukocyte Esterase Negative (Negative) 10/13/24 00:51 Urine RBC 0-2 /hpf (0-2) 10/13/24 00:51 Urine WBC 0-5 /hpf (0-5) 10/13/24 00:51 Ur Squamous Epith Cells 0-5 /hpf (0-5) 10/13/24 00:51 Amorphous Sediment Not Reportable 10/13/24 00:51 Urine Bacteria None seen /hpf (NONE) 10/13/24 00:51 Hyaline Casts 0.81 /lpf 10/13/24 00:51 Salicylates < 0.3 mg/dL (3-10) L 10/12/24 23: Urine Opiates Screen Negative ng/mL (Negative) 10/13/24 00:51 Acetaminophen < 5.0 ug/mL (10-30) L 10/12/24 23:27 Ur Barbiturates Screen Negative ng/mL (Negative) 10/13/24 00:51 Valproic Acid 2.8 ug/mL (50-100) L 10/12/24 23:27 Ur Phencyclidine Scrn Negative ng/mL (Negative) 10/13/24 00:51 Ur Amphetamines Screen Negative ng/mL (Negative) 10/13/24 00:51 U Benzodiazepines Scrn Negative ng/mL (Negative) 10/13/24 00:51 Urine Cocaine Screen Negative ng/mL (Negative) 10/13/24 00:51 U Marijuana (THC) Screen Positive ng/mL (Negative) H 10/13/24 00:51 Ethyl Alcohol 77 mg/dL (0-10) H 10/12/24 23:27 All radiology interpretation(s) finalized by discharge Discharge Plan Discharge Patient Disposition: Xfer Psychiatric Hosp Clinical Impression: Suicidal ideation Condition: Stable Prescriptions: No Action divalproex [Depakote] 500 mg tablet,delayed release (DR/EC) 500 mg PO BID 30 Days Qty: 60 2RF buspirone 10 mg tablet 10 mg PO BID Qty: 60 2RF propranolol 20 mg tablet 20 mg PO BID PRN (Reason: anxiety) Qty: 60 2RF hydroxyzine HCl 50 mg tablet 50 mg PO BID PRN (Reason: anxiety) Qty: 60 2RF venlafaxine 75 mg capsule,extended release 24hr 75 mg PO DAILY Qty: 30 0RF venlafaxine 150 mg capsule,extended release 24hr 150 mg PO DAILY Qty: 30 2RF trazodone 100 mg tablet 100 mg PO BEDTIME PRN (Reason: insomnia) ibuprofen 200 mg Tablet 400 mg PO Q6H PRN (Reason: Pain) cetirizine [Zyrtec] 10 mg tablet 10 mg PO DAILY PRN (Reason: Allergic Symptoms) Print Language: [place]aguayan Coding Level of Care Code ED Customer Insight Analyst for Nish Stapleton
[2024-10-13 00:07] LABS: Alanine Aminotransferase 21 U/L (0-41); Albumin Level 5.3 g/dL (3.5-5.2); Alcohol Level 77 mg/dL (0-10); Alkaline Phosphatase 82 U/L (40-130); Aspartate Amino Transferase 21 U/L (0-40); Blood Urea Nitrogen 13 mg/dL (6-20); Calcium 9.6 mg/dL (8.5-10.5); Carbon Dioxide 23 mmol/L (22-29); Chloride 105 mmol/L (98-107); Globulin 2.7 g/dL (1.3-4.6); Glucose 87 mg/dL (65-115); Osmolality Calculated 293 mOsm/kg (285-295); Sodium 142 mmol/L (136-145); Thyroid Stimulating Hormone 3.53 uIU/mL (0.27-4.20); Total Bilirubin 0.2 mg/dL (0.15-1.2)
[2024-10-13 00:12] LABS: Acetaminophen < 5.0 ug/mL (10-30); Anion Gap 18.4 (5-19); Potassium 4.4 mmol/L (3.5-5.1); Salicylate < 0.3 mg/dL (3-10)
[2024-10-13 01:05] LABS: Bacteria Urine None Seen /hpf; Hyaline Casts Urine 0.81 /lpf; RBC Urine 0-2 /hpf (0-2); Squamous Epithelial Cell Urine 0-5 /hpf (0-5); WBC Urine 0-5 /hpf (0-5)
[2024-10-13 01:06] LABS: Add Urine Microscopic? YES; Bilirubin Urine Neg (Negative); Blood Urine Neg (Negative); Glucose Urine UA Norm (Normal); Ketones Urine 1+ (Negative); Leukocyte Esterase Urine Negative (Negative); Nitrate Urine Negative (Negative); Protein Urine 1+ (Negative); Urine Appearance Clear (CLEAR); Urine Color Yellow (Yellow); Urobilinogen Urine Norm (Negative); pH Urine 6 (5-7)
[2024-10-13 01:28] LABS: Amphetamines Screen Urine Negative (Negative); Barbiturates Screen Urine Negative (Negative); Benzodiazepines Screen Urine Negative (Negative); Cocaine Screen Urine Negative (Negative); Opiate Screen Urine Negative (Negative); PCP Screen Urine Negative (Negative); THC Screen Urine Positive (Negative)
--- NOTE | 2024-10-13 09:37 | PC.NURSE ---
report called to Larisa at [facility]. informed her that it will probably be this afternoon before EMS transport is available.
[2024-10-13] MEDS: LORazepam 2 mg Tablet PO (13:16)
== END 2024-10-13 19:55 ==
PROVIDERS: Emergency Provider Emergency Medicine
DX: R45.851 Suicidal ideations (principal); F17.210 Nicotine dependence, cigarettes, uncomplicated
CPT/HCPCS: 36415; 80053; 80164; 80306; 80307; 81001; 84443; 85025; 96372; 99283; J2060; J9999

== ENCOUNTER 2024-11-10 03:01 | Inpatient (IN) | payer MEDICAID, SELFPAY ==
[2024-10-31 12:58] VITALS: BP 124/79; BMI 30.4
[2024-11-10 03:14] VITALS: BP 112/66; PULSE 83; RESP 20; TEMP 36.4; O2SAT 97; BMI 32.5
--- NOTE | 2024-11-10 03:18 | XRR_ITS ---
PROCEDURE INFORMATION: Exam: XR Chest Exam date and time: 11/10/2024 3:29 AM Age: 24 years old Clinical indication: Prior surgery; Surgery date: 6+ months; Surgery type: Clavicular fixation; Medical clearance for psych transfer. TECHNIQUE: Imaging protocol: Radiologic exam of the chest. Views: 1 view. COMPARISON: CR XR chest 1V portable [id number] 07/08/2024 6:48 PM FINDINGS: Lungs: Unremarkable. No consolidation. Pleural spaces: Unremarkable. No pleural effusion. No pneumothorax. Heart/Mediastinum: Unremarkable. No cardiomegaly. Bones/joints: Unremarkable. Left clavicle surgical plate fixation with unremarkable alignment. XR/XR chest 1V portable [id number] IMPRESSION: No acute findings.
--- NOTE | 2024-11-10 03:47 | W.ED.PSYCHS ---
Documented by User: James Zamudio, DO 11/10/24 19:01 HPI - Psych General: Chief Complaint: Psychiatric Symptoms Stated Complaint: MHE Time Seen by Provider: 11/10/24 03:22 History of Present Illness: 24-year-old male with a history of bipolar disorder. He has a history of multiple psychiatric admissions. He overdosed in June of this past year requiring intubation and development of ARDS. He has since been admitted to the hospital for psychiatric complaints in July. He presents with worsening feelings of depression. Suicidal ideation. His plan was to take all of his medications again. He did not do this. He is here voluntarily. Related Data Home Medications ?Medication ?Instructions ?Recorded ?Confirmed ibuprofen 200 mg tablet 400 mg PO Q6H PRN Pain 11/18/23 11/10/24 cetirizine 10 mg tablet (Zyrtec) 10 mg PO DAILY PRN Allergic 03/21/24 11/10/24 Symptoms Previous Rx's ?Medication ?Instructions ?Recorded hydroxyzine HCl 50 mg tablet 50 mg PO BID PRN anxiety #60 tabs 09/10/24 propranolol 20 mg tablet 20 mg PO BID PRN anxiety #60 tabs 09/10/24 buspirone 15 mg tablet 15 mg PO TID #90 tabs 10/23/24 divalproex 500 mg tablet,delayed 500 mg PO BID 30 days #60 tabs 10/23/24 release (Depakote) naltrexone 50 mg tablet 50 mg PO DAILY #30 tabs 10/23/24 trazodone 100 mg tablet 200 mg (2 x 100 mg) PO BEDTIME PRN 10/23/24 insomnia #60 tabs venlafaxine 150 mg 150 mg PO DAILY #30 caps 10/23/24 capsule,extended release 24 hr venlafaxine 75 mg capsule,extended 75 mg PO DAILY #30 caps 10/23/24 release 24 hr Allergies Allergy/AdvReac Type Severity Reaction Status Date / Time No Known Allergies Allergy Verified 10/01/24 18:43 Review of Systems Const: Denies: fever(s), chills or body aches Eyes: Denies: change in vision Card: Denies: chest pain or palpitations Resp: Denies: dyspnea, productive cough, non-productive cough or wheezing GI: Denies: abdominal pain, nausea, vomiting, diarrhea or hematochezia Skin/Breast: Denies: rash Neuro: Denies: headache(s), weakness in extremities, dizziness or confusion PFSH ED PFSH: Medical History Psychiatric care History of OCD (obsessive compulsive disorder) Depression Family History Other Cancer Hypertension Social History Smoking and tobacco/nicotine status: current every day tobacco/nicotine user cigarettes Packs smoked per day: 10 Years cigarettes smoked: 10, e-cigarettes E-Cigarette Details: e-cigarette and with nicotine E-cig/vape details: 10,000 puff last only a week and smokeless tobacco Smokeless tobacco user: chewing tobacco Smokeless tobacco details: from time to time Quit status (tobacco/nicotine): considering quitting Second hand smoke exposure: Yes Alcohol intake: never Substance/Drug Use: current Substance/Drug use frequency: daily Adopted: No Caregiver/support person: No Lives independently: Yes Household members: family Housing: House Marital status: Single Number of children: 0 Number of grandchildren: 0 Highest education level completed: Some College, No Degree service: No Current occupational status: other Details: filing for disability Pets and animals: Yes Pets & animals: cat(s) and dog(s) Leisure activites: music and other Leisure activities details: watching TV Sexually active: No Do you think of yourself as: Straight/Heterosexual Current gender identity: Male Patricia/Nondenominational: Other Special patricia needs: No Agree to transfusion: Yes Physical Exam Const: COMMON NORMALS: no acute distress GENERAL APPEARANCE: cooperative; not ill appearing and not frail appearing HENMT: COMMON NORMALS: normocephalic, atraumatic and Normal external nose present HEAD & SCALP: normocephalic and atraumatic FACE & SINUS: normal facial exam and face symmetric NOSE: Normal external nose present Eye: COMMON NORMALS: Equal, round and reactive pupils present and EOMs intact bilaterally PUPIL: Yes Equal, round and reactive pupils present Neck/C-Spine: GENERAL: Yes trachea midline Chest: CHEST: Yes Symmetrical chest wall rise Resp: COMMON NORMALS: normal respiratory effort, No retractions, No use of accessory muscles and clear to auscultation bilaterally AUSCULTATION: clear to auscultation bilaterally Cardio: COMMON NORMALS: regular rate and regular rhythm RATE: regular rate RHYTHM: regular rhythm GI: COMMON NORMALS: Normal to inspection, nondistended, normoactive bowel sounds present Extremity: COMMON NORMALS: no pedal edema Neuro: TAI COMA SCALE: document GCS findings Tai coma scale eye opening: Spontaneous [place] coma scale verbal response: Orientated [place] coma scale motor response: Obey commands [place] coma scale total score: 15 SENSORY EXAM: Yes extremities (intact) Psych: COMMON NORMALS: speech normal SPEECH: Yes normal speech Skin: COMMON NORMALS: no rashes or lesions noted GENERAL SKIN EXAM: no rashes or lesions noted Course Vital Signs: Vital signs: Vital Signs Temperature 97.5 F L 11/10/24 14:00 Pulse Rate 69 11/10/24 14:00 Respiratory Rate 18 11/10/24 14:00 Blood Pressure 116/74 11/10/24 14:00 Pulse Oximetry 95 11/10/24 14:00 Oxygen Delivery Me thod Room Air 11/10/24 08:07 MDM - Psych Medical Decision Making 24-year-old male with suicidal ideation. He is here voluntarily. We currently do not have any beds available at our facility. He appears stable. When labs are back, if unremarkable, we will begin transfer attempt. Lab Data 11/10/24 03:58 11/10/24 03:58 Radiology Impressions Chest X-Ray 11/10/24 03:18 IMPRESSION: No acute findings. Laboratory Results WBC 8.54 10^3/uL (3.29-11.43) 11/10/24 03:58 RBC 4.80 10^6/uL (3.85-5.65) 11/10/24 03:58 Hgb 14.70 g/dL (11.27-16.99) 11/10/24 03:58 Hct 43.3 % (37-53) 11/10/24 03:58 MCV 90.2 fl (82-101) 11/10/24 03:58 MCH 30.6 pg (27-33) 11/10/24 03:58 MCHC 33.9 g/dL (30-55) 11/10/24 03:58 RDW 12.2 % (12.1-15.1) 11/10/24 03:58 Plt Count 251 10^3/cmm (157-399) 11/10/24 03:58 MPV 9.0 fL (7.4-10.4) 11/10/24 03:58 Neut % (Auto) 67.2 % 11/10/24 03:58 Lymph % (Auto) 25.6 % 11/10/24 03:58 Quay % (Auto) 6.2 % 11/10/24 03:58 Eos % (Auto) 0.4 % 11/10/24 03:58 Baso % (Auto) 0.4 % 11/10/24 03:58 Neut # (Auto) 5.74 10^3/uL (1.8-7.7) 11/10/24 03:58 Lymph # (Auto) 2.2 10^3/uL (0.8-4.8) 11/10/24 03:58 Quay # (Auto) 0.5 10^3/uL (0.2-0.9) 11/10/24 03:58 Eos # (Auto) 0.0 10^3/uL (0.0-0.8) 11/10/24 03:58 Baso # (Auto) 0.0 10^3/uL (0.0-0.1) 11/10/24 03:58 Nucleated RBC % (auto) 0 % 11/10/24 03:58 Nucleated RBCs # 0.0 /100WBC 11/10/24 03:58 Sodium 136 mmol/L (136-145) 11/10/24 03:58 Potassium 3.4 mmol/L (3.5-5.1) L 11/10/24 03:58 Chloride 102 mmol/L (98-107) 11/10/24 03:58 Carbon Dioxide 23 mmol/L (22-29) 11/10/24 03:58 Anion Gap 14.4 (5-19) 11/10/24 03:58 BUN 11 mg/dL (6-20) 11/10/24 03:58 Creatinine 0.7 mg/dL (0.7-1.2) 11/10/24 03:58 GFR Calculation 141.0 mL/min (90-130) H 11/10/24 03:58 Glucose 97 mg/dL (65-115) 11/10/24 03:58 Calculated Osmolality 281 mOsm/kg (285-295) L 11/10/24 03:58 Calcium 9.1 mg/dL (8.5-10.5) 11/10/24 03:58 Total Bilirubin 0.2 mg/dL (0.15-1.2) 11/10/24 03:58 AST 18 U/L (0-40) 11/10/24 03:58 ALT 25 U/L (0-41) 11/10/24 03:58 Alkaline Phosphatase 71 U/L (40-130) 11/10/24 03:58 Total Protein 6.8 g/dL (6.6-8.7) 11/10/24 03:58 Albumin 4.4 g/dL (3.5-5.2) 11/10/24 03:58 Globulin 2.4 g/dL (1.3-4.6) 11/10/24 03:58 TSH 1.67 uIU/mL (0.27-4.20) 11/10/24 03:58 Salicylates < 0.3 mg/dL (3-10) L 11/10/24 03:58 Acetaminophen < 5.0 ug/mL (10-30) L 11/10/24 03:58 Valproic Acid 13.4 ug/mL (50-100) L 11/10/24 03:58 Ethyl Alcohol < 10 mg/dL (0-10) 11/10/24 03:58 Influenza A (PCR) Negative (Negative) 11/10/24 03:57 Influenza Type B (PCR) Negative (Negative) 11/10/24 03:57 RSV (PCR) Negative (Negative) 11/10/24 03:57 SARS-CoV-2 (PCR) Negative (Negative) 11/10/24 03:57 Discharge Plan Discharge Patient Disposition: Admitted As Inpatient Admit Provider: Fadi Bowie Clinical Impression: Suicidal ideation Condition: Stable Coding Level of Care Code ED Psychology Technician for Chg Fwd Documented by User: Ubaldo Epperson MD 11/10/24 06:34 HPI - Psych General: Chief Complaint: Psychiatric Symptoms Stated Complaint: MHE Time Seen by Provider: 11/10/24 03:22 Related Data Home Medications ?Medication ?Instructions ?Recorded ?Confirmed ibuprofen 200 mg tablet 400 mg PO Q6H PRN Pain 11/18/23 11/10/24 cetirizine 10 mg tablet (Zyrtec) 10 mg PO DAILY PRN Allergic 03/21/24 11/10/24 Symptoms Previous Rx's ?Medication ?Instructions ?Recorded hydroxyzine HCl 50 mg tablet 50 mg PO BID PRN anxiety #60 tabs 09/10/24 propranolol 20 mg tablet 20 mg PO BID PRN anxiety #60 tabs 09/10/24 buspirone 15 mg tablet 15 mg PO TID #90 tabs 10/23/24 divalproex 500 mg tablet,delayed 500 mg PO BID 30 days #60 tabs 10/23/24 release (Depakote) naltrexone 50 mg tablet 50 mg PO DAILY #30 tabs 10/23/24 trazodone 100 mg tablet 200 mg (2 x 100 mg) PO BEDTIME PRN 10/23/24 insomnia #60 tabs venlafaxine 150 mg 150 mg PO DAILY #30 caps 10/23/24 capsule,extended release 24 hr venlafaxine 75 mg capsule,extended 75 mg PO DAILY #30 caps 10/23/24 release 24 hr Allergies Allergy/AdvReac Type Severity Reaction Status Date / Time No Known Allergies Allergy Verified 10/01/24 18:43 PFSH ED PFSH: Medical History Psychiatric care History of OCD (obsessive compulsive disorder) Depression Family History Other Cancer Hypertension Social History Smoking and tobacco/nicotine status: current every day tobacco/nicotine user cigarettes Packs smoked per day: 10 Years cigarettes smoked: 10, e-cigarettes E-Cigarette Details: e-cigarette and with nicotine E-cig/vape details: 10,000 puff last only a week and smokeless tobacco Smokeless tobacco user: chewing tobacco Smokeless tobacco details: from time to time Quit status (tobacco/nicotine): considering quitting Second hand smoke exposure: Yes Alcohol intake: never Substance/Drug Use: current Substance/Drug use frequency: daily Adopted: No Caregiver/support person: No Lives independently: Yes Household members: family Housing: House Marital status: Single Number of children: 0 Number of grandchildren: 0 Highest education level completed: Some College, No Degree service: No Current occupational status: other Details: filing for disability Pets and animals: Yes Pets & animals: cat(s) and dog(s) Leisure activites: music and other Leisure activities details: watching TV Sexually active: No Do you think of yourself as: Straight/Heterosexual Current gender identity: Male Patricia/Nondenominational: Other Special patricia needs: No Agree to transfusion: Yes Physical Exam Neuro: TAI COMA SCALE: document GCS findings Tai coma scale total score: 15 Course Vital Signs: Vital signs: Vital Signs Temperature 97.5 F L 11/10/24 14:00 Pulse Rate 69 11/10/24 14:00 Respiratory Rate 18 11/10/24 14:00 Blood Pressure 116/74 11/10/24 14:00 Pulse Oximetry 95 11/10/24 14:00 Oxygen Delivery Me thod Room Air 11/10/24 08:07 MDM - Psych Medical Decision Making 24-year-old male with suicidal ideation. Patient placed under 96-hour hold spoke to psychiatrist will admit here he is medically cleared. Lab Data 11/10/24 03:58 11/10/24 03:58 Radiology Impressions Chest X-Ray 11/10/24 03:18 IMPRESSION: No acute findings. Laboratory Results WBC 8.54 10^3/uL (3.29-11.43) 11/10/24 03:58 RBC 4.80 10^6/uL (3.85-5.65) 11/10/24 03:58 Hgb 14.70 g/dL (11.27-16.99) 11/10/24 03:58 Hct 43.3 % (37-53) 11/10/24 03:58 MCV 90.2 fl (82-101) 11/10/24 03:58 MCH 30.6 pg (27-33) 11/10/24 03:58 MCHC 33.9 g/dL (30-55) 11/10/24 03:58 RDW 12.2 % (12.1-15.1) 11/10/24 03:58 Plt Count 251 10^3/cmm (157-399) 11/10/24 03:58 MPV 9.0 fL (7.4-10.4) 11/10/24 03:58 Neut % (Auto) 67.2 % 11/10/24 03:58 Lymph % (Auto) 25.6 % 11/10/24 03:58 Quay % (Auto) 6.2 % 11/10/24 03:58 Eos % (Auto) 0.4 % 11/10/24 03:58 Baso % (Auto) 0.4 % 11/10/24 03:58 Neut # (Auto) 5.74 10^3/uL (1.8-7.7) 11/10/24 03:58 Lymph # (Auto) 2.2 10^3/uL (0.8-4.8) 11/10/24 03:58 Quay # (Auto) 0.5 10^3/uL (0.2-0.9) 11/10/24 03:58 Eos # (Auto) 0.0 10^3/uL (0.0-0.8) 11/10/24 03:58 Baso # (Auto) 0.0 10^3/uL (0.0-0.1) 11/10/24 03:58 Nucleated RBC % (auto) 0 % 11/10/24 03:58 Nucleated RBCs # 0.0 /100WBC 11/10/24 03:58 Sodium 136 mmol/L (136-145) 11/10/24 03:58 Potassium 3.4 mmol/L (3.5-5.1) L 11/10/24 03:58 Chloride 102 mmol/L (98-107) 11/10/24 03:58 Carbon Dioxide 23 mmol/L (22-29) 11/10/24 03:58 Anion Gap 14.4 (5-19) 11/10/24 03:58 BUN 11 mg/dL (6-20) 11/10/24 03:58 Creatinine 0.7 mg/dL (0.7-1.2) 11/10/24 03:58 GFR Calculation 141.0 mL/min (90-130) H 11/10/24 03:58 Glucose 97 mg/dL (65-115) 11/10/24 03:58 Calculated Osmolality 281 mOsm/kg (285-295) L 11/10/24 03:58 Calcium 9.1 mg/dL (8.5-10.5) 11/10/24 03:58 Total Bilirubin 0.2 mg/dL (0.15-1.2) 11/10/24 03:58 AST 18 U/L (0-40) 11/10/24 03:58 ALT 25 U/L (0-41) 11/10/24 03:58 Alkaline Phosphatase 71 U/L (40-130) 11/10/24 03:58 Total Protein 6.8 g/dL (6.6-8.7) 11/10/24 03:58 Albumin 4.4 g/dL (3.5-5.2) 11/10/24 03:58 Globulin 2.4 g/dL (1.3-4.6) 11/10/24 03:58 TSH 1.67 uIU/mL (0.27-4.20) 11/10/24 03:58 Salicylates < 0.3 mg/dL (3-10) L 11/10/24 03:58 Acetaminophen < 5.0 ug/mL (10-30) L 11/10/24 03:58 Valproic Acid 13.4 ug/mL (50-100) L 11/10/24 03:58 Ethyl Alcohol < 10 mg/dL (0-10) 11/10/24 03:58 Influenza A (PCR) Negative (Negative) 11/10/24 03:57 Influenza Type B (PCR) Negative (Negative) 11/10/24 03:57 RSV (PCR) Negative (Negative) 11/10/24 03:57 SARS-CoV-2 (PCR) Negative (Negative) 11/10/24 03:57 No radiology studies performed this visit Discharge Plan Discharge Patient Disposition: Admitted As Inpatient Admit Provider: Fadi Bowie Clinical Impression: Suicidal ideation Condition: Stable Coding Level of Care Code ED Psychology Technician for Nish Stapleton
[2024-11-10 04:05] LABS: Basophils % 0.4 %; Eosinophils % 0.4 %; Hematocrit 43.3 % (37-53); Lymphocytes # 2.2 10^3/uL (0.8-4.8); Lymphocytes % 25.6 %; Mean Corpuscular HGB Conc 33.9 g/dL (30-55); Mean Corpuscular Hemoglobin 30.6 pg (27-33); Mean Corpuscular Volume 90.2 fl (82-101); Monocytes # 0.5 10^3/uL (0.2-0.9); Monocytes % 6.2 %; Neutrophils # 5.74 10^3/uL (1.8-7.7); Neutrophils % 67.2 %; Nucleated Red Blood Cells % 0 %; Platelet Count 251 10^3/cmm (157-399); Red Cell Distribution Width 12.2 % (12.1-15.1); White Blood Count 8.54 10^3/uL (3.29-11.43)
[2024-11-10 04:28] LABS: Valproic Acid Level 13.4 ug/mL (50-100)
[2024-11-10 04:32] LABS: Acetaminophen < 5.0 ug/mL (10-30); Alanine Aminotransferase 25 U/L (0-41); Albumin Level 4.4 g/dL (3.5-5.2); Alcohol Level < 10 mg/dL (0-10); Alkaline Phosphatase 71 U/L (40-130); Anion Gap 14.4 (5-19); Aspartate Amino Transferase 18 U/L (0-40); Blood Urea Nitrogen 11 mg/dL (6-20); Calcium 9.1 mg/dL (8.5-10.5); Carbon Dioxide 23 mmol/L (22-29); Chloride 102 mmol/L (98-107); Creatinine Clr Calc Pharmacy 192.7708; Globulin 2.4 g/dL (1.3-4.6); Glucose 97 mg/dL (65-115); Osmolality Calculated 281 mOsm/kg (285-295); Potassium 3.4 mmol/L (3.5-5.1); Salicylate < 0.3 mg/dL (3-10); Sodium 136 mmol/L (136-145); Total Bilirubin 0.2 mg/dL (0.15-1.2); Total Protein 6.8 g/dL (6.6-8.7)
[2024-11-10 04:33] LABS: Thyroid Stimulating Hormone 1.67 uIU/mL (0.27-4.20)
[2024-11-10 04:56] LABS: Influenza A NEGATIVE (Negative); Influenza B NEGATIVE (Negative); Respiratory Syncytial Virus Ce NEGATIVE (Negative); SARS-CoV-2 PCR NEGATIVE (Negative)
--- NOTE | 2024-11-10 06:57 | PC.NURSE ---
96 Hour Involuntary Hold Patient Rights have been reviewed with the patient and a copy of the same has been provided to him. Brand Specialist Abimael was present at bedside during the time of presentation of Rights.
[2024-11-10 07:52] VITALS: BP 114/64; PULSE 76; O2SAT 94
[2024-11-10 08:06] VITALS: BP 123/87; PULSE 86; RESP 18; TEMP 36.3; O2SAT 96
--- NOTE | 2024-11-10 09:28 | PC.ADMIT ---
[email or web address] [facility] Admission Note:Pt was brought to the ED by PD after he had texted someone (pt states he doesn't recall who he texted)and made a statement about harming himself. Pt has been placed on a 96 hour hold. Pt did a have a significant OD in Jun 2024. BAL was neg and a UDS has not been collected. This nurse asked pt what is going on to make him feel SI at this time. Pt states that he is feeling overwhelemed lately. States that his mother has Cncr and was recently in the hosp with kidney problems. He states that his Step Dad also has significant health concerns along with a recent knee surgery and this is causing him to have to take on the housework for all three of them along with helping them too. He states that he just became overwhelmed and wanted to harm himself. He doesn't like that [place] so [place] out of town, it makes him feel isolated and lonely. Pt does have a brace on his Rt wrist and will require a 1:1 sitter. The patient,Parth Newman,24 y/o, was given written information regarding hospital policies, unit procedures and contact persons. Patient's smoking status: current every day smoker. Vital Signs - 8 hr 11/10/24 03:14 11/10/24 07:52 11/10/24 08:06 Temperature 97.5 F L 97.4 F L Pulse Rate 83 76 86 Respiratory Rate 20 H 18 Blood Pressure 112/66 114/64 123/87 Pulse Oximetry 97 94 96 Oxygen Delivery Method 11/10/24 08:07 Temperature Pulse Rate Respiratory Rate Blood Pressure Pulse Oximetry Oxygen Delivery Method Room Air
[2024-11-10 14:00] VITALS: BP 116/74; PULSE 69; RESP 18; TEMP 36.4; O2SAT 95
[2024-11-10] MEDS: nicotine 2 mg Gum BUCCAL ×2 (15:05→20:26)
[2024-11-10 15:31] LABS: Bilirubin Urine Negative (Negative); Blood Urine Negative (Negative); Glucose Urine UA Negative (Normal); Ketones Urine Trace (Negative); Leukocyte Esterase Urine Negative (Negative); Nitrate Urine Negative (Negative); Protein Urine Trace (Negative); Urine Appearance Cloudy (CLEAR); Urine Color Dark Yellow (Yellow); pH Urine 5.5 (5-7)
[2024-11-10 15:33] LABS: Add Urine Microscopic? YES; Universal Test for UA Present (0)
[2024-11-10 15:41] LABS: Amphetamines Screen Urine Negative (Negative); Barbiturates Screen Urine Negative (Negative); Benzodiazepines Screen Urine Negative (Negative); Cocaine Screen Urine Negative (Negative); Opiate Screen Urine Negative (Negative); PCP Screen Urine Negative (Negative); THC Screen Urine Positive (Negative)
[2024-11-10 15:44] LABS: Bacteria Urine TRACE /hpf; RBC Urine RARE /hpf (0-2); Specific Gravity, Urine 1.031 (1.005-1.030); Squamous Epithelial Cell Urine 0-4 /hpf (0-5); UA Manual Slide Review YES; WBC Urine 0-4 /hpf (0-5)
[2024-11-10 15:45] LABS: Mucus Urine 2+ /hpf
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
[2024-11-10] MEDS: hyDROXYzine 25 mg Capsule 50 MG PO (18:10)
[2024-11-10] MEDS: OLANZapine 5 mg ODT PO (18:50)
[2024-11-10] MEDS: BuSPIRONE 10 mg Tablet 15 MG PO (20:09)
[2024-11-10] MEDS: trazodone 100 mg Tablet 200 MG PO (20:09)
[2024-11-10] MEDS: propranolol 20 mg Tablet PO (20:09)
[2024-11-10 22:00] VITALS: BP 117/73; PULSE 91; RESP 18; TEMP 36.9; O2SAT 95
[2024-11-11 06:00] VITALS: BP 116/81; PULSE 59; RESP 16; O2SAT 92
[2024-11-11] MEDS: venlafaxine ER (24HR) 75 mg Capsule PO (09:15)
[2024-11-11] MEDS: venlafaxine ER (24HR) 150 mg Capsule PO (09:15)
[2024-11-11] MEDS: divalproex DR 500 mg Tablet PO ×2 (09:15→18:11)
[2024-11-11] MEDS: naltrexone hcl 50 mg Tablet PO (09:15)
[2024-11-11] MEDS: BuSPIRONE 10 mg Tablet 15 MG PO ×3 (09:16→19:36)
[2024-11-11] MEDS: nicotine 2 mg Gum BUCCAL ×3 (10:15→19:36)
[2024-11-11] MEDS: hyDROXYzine 25 mg Capsule 50 MG PO (12:26)
[2024-11-11] MEDS: OLANZapine 5 mg ODT PO ×2 (12:59→19:58)
[2024-11-11 14:00] VITALS: BP 139/87; PULSE 59; RESP 19; TEMP 36.4; O2SAT 97
--- NOTE | 2024-11-11 16:27 | W.PM.NPUPNS ---
Subjective NPU Subjective: Patient presented today reporting he is having lots of depression and negative thoughts. He was endorsing some issue with his right hand and we determined that the likely injury occurred less than 3 weeks ago. We discussed the risks, benefits and alternatives of getting a 3 view of the right hand and he understood and agreed to proceed as is documented in this note as well as agreeing to increasing to Effexor XR 300 mg p.o. daily after discussion of risks and benefits. He denied any side effects to his medications. Mental Status Exam MSE Comments: This is a well-nourished, well-developed, white male, in hospital scrubs with adequate grooming and limited eye contact. No abnormal movements, except for significant psychomotor retardation. Cooperative with exam in moderate distress. Speech was decreased rate and volume. Mood described as depressed; affect congruent and subdued. Thought process, organized. Thought content: patient endorses suicidal but denies homicidal ideation; patient denied delusions and none were noted; patient denied any auditory or visual hallucinations. Attention, concentration, and memory appeared intact, but none were formally tested. He was alert and oriented times three. Insight appears fair, but judgment and judgment is poor. Impulse control is limited versus impaired. Vitals/I&O/Wt Last Vital Signs Temp 98 F 11/11/24 20:42 Pulse 82 11/11/24 20:42 Resp 18 11/11/24 20:42 BP 128/89 11/11/24 20:42 Pulse Ox 96 11/11/24 20:42 O2 Del Method Room Air 11/11/24 20:42 Data NPU 11/10/24 03:58 11/10/24 03:58 A&P Assessment and plan (1) Bipolar disorder with depression: (2) Panic attacks: (3) History of OCD (obsessive compulsive disorder): (4) Suicidal ideations: (5) PTSD (post-traumatic stress disorder): Plan 24-year-old white male extensive history of bipolar disorder last admitted in June of last year with similar presentation of suicidal ideation and worsening depression. Patient with significant history of suicide attempts and a history of chronic suicidal ideation and mood dysregulation presenting suicidal and continuing to endorse significant psychosocial challenges from being in his home. He has a history of noncompliance with medications, but he endorses being consistent with his medication this time. 1. Encourage individual, group and milieu therapy. 2. Recommend sober living treatment at the highest level of care to which the patient is willing to commit. 3. Continue q-15 minute checks for safety 4. Continue current medication and consider increases in doses after we have confirmed at least regular filling of medications at the pharmacy. PDMP PDMP Reviewed: Not Reviewed Involuntary Hold Information Hold Status: Legal Status: 96 Hour Hold Date/Time Hold Expires: 11/15/2024 @ 0001 96 Hour Hold: 96 Hour Involuntary Admission: Yes Other Hold: Hold End Date: 07/01/24 Attestations NPU Medical Necessity Statement*: Inpatient hospitalization is medically necessary and the clinically appropriate intervention at this time. We will monitor medications and make changes as indicated. The patient's likely length of stay 3-5 days. Coding Level of Care Code Acute Code for [facility] Fwd Diagnoses Bipolar disorder with depression F31.9 Panic attacks F41.0 History of OCD (obsessive compulsive disorder) Z86.59 Suicidal ideations R45.851 PTSD (post-traumatic stress disorder) F43.10
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
[2024-11-11] MEDS: trazodone 100 mg Tablet 200 MG PO (19:36)
--- NOTE | 2024-11-11 19:43 | PC.NURSE ---
1:1 SITTER PATIENT 3 VIEW X-RAY OF RIGHT WRIST RESULTS OBTAINED. NO ACUTE FINDINGS NOTED. OBTAINED VERBAL ORDER FROM DOCTOR VALENTINA TO REMOVE METAL PIECE FROM WRIST BRACE & FOR 1:1 SITTER BE ABLE TO BE REMOVED.
--- NOTE | 2024-11-11 20:00 | PC.NURSE ---
ANXIETY PATIENT CAME TO DESK, ARMS CROSSED, FACIAL SCOWL. WHEN ASKED WHAT CAN I DO FOR YOU , PATIENT STATED HE WAS HAVING THOUGHTS OF WANTING TO HARM HIMSELF. PATIENT STATED HE HAD NO PLAN. REQUESTED ANXIETY MED, ZYPREXA 5MG SL GIVEN.
[2024-11-11 20:42] VITALS: BP 128/89; PULSE 82; RESP 18; TEMP 36.6; O2SAT 96
--- NOTE | 2024-11-11 22:03 | PC.NURSE ---
MED FOLLOWUP PATIENT IN ROOM RESTING QUIETLY WITH BOTH EYES CLOSED.
[2024-11-12 06:00] VITALS: BP 125/80; PULSE 61; RESP 18; O2SAT 97
[2024-11-12] MEDS: venlafaxine ER (24HR) 150 mg Capsule PO (09:30)
[2024-11-12] MEDS: BuSPIRONE 10 mg Tablet 15 MG PO ×3 (09:30→20:43)
[2024-11-12] MEDS: nicotine 2 mg Gum BUCCAL ×3 (09:30→19:44)
[2024-11-12] MEDS: divalproex DR 500 mg Tablet PO ×2 (09:30→18:02)
[2024-11-12] MEDS: naltrexone hcl 50 mg Tablet PO (09:30)
[2024-11-12] MEDS: venlafaxine ER (24HR) 75 mg Capsule PO ×2 (09:30→11:39)
--- NOTE | 2024-11-12 10:52 | PC.NURSE ---
Dr. Bowie gave a v/o to increase Effexor XR to 225mg. States that if pt already had his 150mg today to do an additional 75mg now to get him up to the 225mg today.
[2024-11-12 14:00] VITALS: BP 136/89; PULSE 90; RESP 16; TEMP 36.6; O2SAT 96
--- NOTE | 2024-11-12 15:02 | W.PM.NPUPNS ---
Subjective NPU Subjective: Patient presented today reporting that he is fine and wanting to leave. He got very irritable when this song writer did not say that he would be discharged moments after our conversation. We discussed that he has been heard and that we will discuss this in treatment team but that we want to make sure we are being appropriate and our plan given that he has had significant suicide attempts after leaving the hospital on a discharge. He reports that he plans to go home and get a job and look to obtain his freedom from home that way. We discussed the fact that his scans suggest that there is no fracture. He denied any side effects to the medication. Mental Status Exam MSE Comments: This is a well-nourished, well-developed, white male, in hospital scrubs with adequate grooming and limited eye contact. No abnormal movements, except for significant psychomotor retardation. Cooperative with exam in moderate distress. Speech was decreased rate and volume. Mood described as depressed, but I will be fine I am ready to go; affect congruent and subdued. Thought process, organized. Thought content: patient endorses suicidal but denies homicidal ideation; patient denied delusions and none were noted; patient denied any auditory or visual hallucinations. Attention, concentration, and memory appeared intact, but none were formally tested. He was alert and oriented times three. Insight appears fair, but judgment and judgment is poor. Impulse control is limited versus impaired. Vitals/I&O/Wt Last Vital Signs Temp 98 F 11/11/24 20:42 Pulse 61 11/12/24 06:00 Resp 18 11/12/24 06:00 BP 125/80 11/12/24 06:00 Pulse Ox 97 11/12/24 06:00 O2 Del Method Room Air 11/12/24 06:00 Data NPU 11/10/24 03:58 11/10/24 03:58 A&P Assessment and plan (1) Bipolar disorder with depression: (2) Panic attacks: (3) History of OCD (obsessive compulsive disorder): (4) Suicidal ideations: (5) PTSD (post-traumatic stress disorder): Plan 24-year-old white male extensive history of bipolar disorder last admitted in June of last year with similar presentation of suicidal ideation and worsening depression. Patient with significant history of suicide attempts and a history of chronic suicidal ideation and mood dysregulation presenting suicidal and continuing to endorse significant psychosocial challenges from being in his home. He has a history of noncompliance with medications, but he endorses being consistent with his medication this time. 1. Encourage individual, group and milieu therapy. 2. Recommend sober living treatment at the highest level of care to which the patient is willing to commit. 3. Continue q-15 minute checks for safety 4. Continue current medication and consider increases in doses after we have confirmed at least regular filling of medications at the pharmacy. Increase Effexor XR to 300 mg p.o. daily PDMP PDMP Reviewed: Not Reviewed Involuntary Hold Information Hold Status: Legal Status: 96 Hour Hold Date/Time Hold Expires: 11/15/2024 @ 0001 96 Hour Hold: 96 Hour Involuntary Admission: Yes Other Hold: Hold End Date: 07/01/24 Attestations NPU Medical Necessity Statement*: Inpatient hospitalization is medically necessary and the clinically appropriate intervention at this time. We will monitor medications and make changes as indicated. The patient's likely length of stay 2-4 days. Coding Level of Care Code Acute Code for [facility] Fwd Diagnoses Bipolar disorder with depression F31.9 Panic attacks F41.0 History of OCD (obsessive compulsive disorder) Z86.59 Suicidal ideations R45.851 PTSD (post-traumatic stress disorder) F43.10
[2024-11-12] MEDS: OLANZapine 5 mg ODT PO (18:02)
--- NOTE | 2024-11-12 18:14 | PC.NURSE ---
Pt has become very agitated and required medication to help calm him down. Pt received 5mg Sublingul Zyprexa. Pt was angry and punched the wall with his right fist in the North hallway. Pt stated that he banged his head on the wall, pt does have a red spot on his forehead where he has been hitting it on the wall. Nurse spoke with pt about his coping skills.
[2024-11-12] MEDS: haloperidol 5 mg Tablet PO (18:48)
[2024-11-12] MEDS: propranolol 20 mg Tablet PO (18:48)
[2024-11-12 19:36] VITALS: BP 120/83; PULSE 86; RESP 18; TEMP 36.7; O2SAT 97
[2024-11-12] MEDS: trazodone 100 mg Tablet 200 MG PO (20:43)
--- NOTE | 2024-11-12 21:00 | PC.NURSE ---
This nurse informed Dr. Bowie at 2014 that pt had hit his head on a wall sometime before shift change. Pts head now has a red bump in the middle of his forehead. Pts only complaint at this time is that it hurts. No new orders were given by provider at this time.
[2024-11-13 06:00] VITALS: BP 114/69; PULSE 72; RESP 16; O2SAT 97
[2024-11-13] MEDS: nicotine 2 mg Gum BUCCAL ×5 (08:09→20:12)
[2024-11-13] MEDS: divalproex DR 500 mg Tablet PO ×2 (08:40→17:39)
[2024-11-13] MEDS: naltrexone hcl 50 mg Tablet PO (08:40)
[2024-11-13] MEDS: BuSPIRONE 10 mg Tablet 15 MG PO ×3 (08:40→20:27)
[2024-11-13] MEDS: venlafaxine ER (24HR) 150 mg Capsule 300 MG PO (08:44)
--- NOTE | 2024-11-13 13:39 | P.NPUPN_ITS ---
Subjective NPU 2 Subjective: Patient presented today reporting that he is feeling better in general and optimistic about the future. He continues to report a plan to get some employment and hopefully be less tethered to his home. Need to be without complaint and reporting that he is certain that he will do it fine at home. He denied any side effects of the medication changes or side effects overall. We discussed the tentative plan for discharge tomorrow. Mental Status Exam 2 MSE Comments: This is a well-nourished, well-developed, white male, in hospital scrubs with adequate grooming and limited eye contact. No abnormal movements, except for resolving psychomotor retardation. Cooperative with exam in mild distress. Speech was more normal rate and volume. Mood described as I feel better and think I will be ready to go; affect congruent and brighter. Thought process, organized. Thought content: patient denies suicidal or homicidal ideation; patient denied delusions and none were noted; patient denied any auditory or visual hallucinations. Attention, concentration, and memory appeared intact, but none were formally tested. He was alert and oriented times three. Insight appears fair, but judgment and judgment is poor. Impulse control is limited versus impaired. Vitals/I&O/Wt Last Vital Signs Temp 98.1 F 11/12/24 19:36 Pulse 72 11/13/24 06:00 Resp 16 11/13/24 06:00 BP 114/69 11/13/24 06:00 Pulse Ox 97 11/13/24 06:00 O2 Del Method Room Air 11/12/24 14:00 Data NPU 11/10/24 03:58 11/10/24 03:58 A&P Assessment and plan (1) Bipolar disorder with depression: (2) Panic attacks: (3) History of OCD (obsessive compulsive disorder): (4) Suicidal ideations: (5) PTSD (post-traumatic stress disorder): Plan 24-year-old white male extensive history of bipolar disorder last admitted in June of last year with similar presentation of suicidal ideation and worsening depression. Patient with significant history of suicide attempts and a history of chronic suicidal ideation and mood dysregulation presenting suicidal and continuing to endorse significant psychosocial challenges from being in his home. He has a history of noncompliance with medications, but he endorses being consistent with his medication this time. 1. Encourage individual, group and milieu therapy. 2. Recommend sober living treatment at the highest level of care to which the patient is willing to commit. 3. Continue q-15 minute checks for safety 4. Continue current medication and consider increases in doses after we have confirmed at least regular filling of medications at the pharmacy. Increased Effexor XR to 300 mg p.o. daily PDMP PDMP Reviewed: Not Reviewed Involuntary Hold Information 2 Hold Status: Legal Status: 96 Hour Hold Date/Time Hold Expires: 11/15/2024 @ 0001 96 Hour Hold: 96 Hour Involuntary Admission: Yes Other Hold: Hold End Date: 07/01/24 Attestations NPU 2 Medical Necessity Statement*: Inpatient hospitalization is medically necessary and the clinically appropriate intervention at this time. We will monitor medications and make changes as indicated. The patient's likely length of stay 1-3 days. Coding Level of Care Code Acute Code for g Fwd Diagnoses Bipolar disorder with depression F31.9 Panic attacks F41.0 History of OCD (obsessive compulsive disorder) Z86.59 Suicidal ideations R45.851 PTSD (post-traumatic stress disorder) F43.10
[2024-11-13 14:00] VITALS: BP 148/98; PULSE 98; RESP 16; TEMP 36.9; O2SAT 98
[2024-11-13] MEDS: propranolol 20 mg Tablet PO ×2 (14:00→22:13)
[2024-11-13] MEDS: neomycin-poly-bacitracin oint 28 gm 1 APPLIC TOPICAL (17:39)
[2024-11-13 20:09] VITALS: BP 121/85; PULSE 108; RESP 20; TEMP 36.7; O2SAT 97
[2024-11-13] MEDS: trazodone 100 mg Tablet 200 MG PO (20:27)
[2024-11-13] MEDS: hyDROXYzine 25 mg Capsule 50 MG PO (20:51)
[2024-11-14 06:00] VITALS: BP 116/73; PULSE 54; RESP 16; O2SAT 97
[2024-11-14] MEDS: divalproex DR 500 mg Tablet PO (09:06)
[2024-11-14] MEDS: venlafaxine ER (24HR) 150 mg Capsule 300 MG PO (09:06)
[2024-11-14] MEDS: naltrexone hcl 50 mg Tablet PO (09:06)
[2024-11-14] MEDS: BuSPIRONE 10 mg Tablet 15 MG PO (09:06)
[2024-11-14] MEDS: nicotine 2 mg Gum BUCCAL (09:07)
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
[2024-11-14 11:39] VITALS: BP 121/85; PULSE 108; RESP 20; TEMP 36.9; O2SAT 97
[2024-11-14] MEDS: propranolol 20 mg Tablet PO (11:44)
== END 2024-11-14 12:42 | disposition home or self-care (01) | DRG 880 ==
LOC: ER 06:39 → NP 07:39
PROVIDERS: Emergency Medicine; Admitting Provider Psychiatry & Neurology Psychiatry; Emergency Provider Emergency Medicine; Visit Provider Psychiatry & Neurology Psychiatry
DX: F41.0 Panic disorder [episodic paroxysmal anxiety] (principal); R45.851 Suicidal ideations; F42.9 Obsessive-compulsive disorder, unspecified; F43.10 Post-traumatic stress disorder, unspecified; F60.3 Borderline personality disorder; F17.210 Nicotine dependence, cigarettes, uncomplicated; F17.290 Nicotine dependence, other tobacco product, uncomplicated; F17.220 Nicotine dependence, chewing tobacco, uncomplicated
CPT/HCPCS: 71045; 73130; 80053; 80164; 80306; 80307; 81001; 84443; 85025; 87637; 97150; 97165; 99285; J9999

== ENCOUNTER 2024-11-15 01:36 | Emergency (ER) | payer MEDICAID, SELFPAY ==
[2024-10-31 12:58] VITALS: BP 124/79; BMI 30.4
[2024-11-15 01:37] VITALS: BP 147/91; PULSE 122; RESP 16; TEMP 36.9; O2SAT 98; BMI 31.0
--- NOTE | 2024-11-15 01:46 | W.ED.ANXIETY ---
HPI - Anxiety General: Chief Complaint: Anxiety Stated Complaint: SI Time Seen by Provider: 11/15/24 01:37 History of Present Illness: 24-year-old man with a history of anxiety and depression who presents emergency room by ambulance after having a panic attack during which time he had had some thoughts about hurting himself which have since resolved. Along with the anxiety. He says he is feeling better now. He would like to go home. He said he really just needed somebody to talk to. He has an appointment with therapy in the morning. Related Data Home Medications ?Medication ?Instructions ?Recorded ?Confirmed ibuprofen 200 mg tablet 400 mg PO Q6H PRN Pain 11/18/23 11/10/24 cetirizine 10 mg tablet (Zyrtec) 10 mg PO DAILY PRN Allergic 03/21/24 11/10/24 Symptoms Previous Rx's ?Medication ?Instructions ?Recorded hydroxyzine HCl 50 mg tablet 50 mg PO BID PRN anxiety #60 tabs 09/10/24 propranolol 20 mg tablet 20 mg PO BID PRN anxiety #60 tabs 09/10/24 buspirone 15 mg tablet 15 mg PO TID #90 tabs 10/23/24 divalproex 500 mg tablet,delayed 500 mg PO BID 30 days #60 tabs 10/23/24 release (Depakote) naltrexone 50 mg tablet 50 mg PO DAILY #30 tabs 10/23/24 trazodone 100 mg tablet 200 mg (2 x 100 mg) PO BEDTIME PRN 10/23/24 insomnia #60 tabs venlafaxine 150 mg 300 mg (2 x 150 mg) PO DAILY 30 11/14/24 capsule,extended release 24 hr days #60 caps Allergies Allergy/AdvReac Type Severity Reaction Status Date / Time No Known Allergies Allergy Verified 10/01/24 18:43 Review of Systems Narrative: Constitutional symptoms: Negative except as documented in HPI. Skin symptoms: Negative except as documented in HPI. Eye symptoms: Negative except as documented in HPI. ENMT symptoms: Negative except as documented in HPI. Respiratory symptoms: Negative except as documented in HPI. Cardiovascular symptoms: Negative except as documented in HPI. Gastrointestinal symptoms: Negative except as documented in HPI. Genitourinary symptoms: Negative except as documented in HPI. Musculoskeletal symptoms: Negative except as documented in HPI. Neurologic symptoms: Negative except as documented in HPI. Psychiatric symptoms: Negative except as documented in HPI. Endocrine symptoms: Negative except as documented in HPI. PFSH ED PFSH: Medical History Psychiatric care History of OCD (obsessive compulsive disorder) Depression Family History Other Cancer Hypertension Social History Smoking and tobacco/nicotine status: current every day tobacco/nicotine user cigarettes Packs smoked per day: 10 Years cigarettes smoked: 10, e-cigarettes E-Cigarette Details: e-cigarette and with nicotine E-cig/vape details: 10,000 puff last only a week and smokeless tobacco Smokeless tobacco user: chewing tobacco Smokeless tobacco details: from time to time Quit status (tobacco/nicotine): considering quitting Second hand smoke exposure: Yes Alcohol intake: never Substance/Drug Use: current Substance/Drug use frequency: daily Adopted: No Caregiver/support person: No Lives independently: Yes Household members: family Housing: House Marital status: Single Number of children: 0 Number of grandchildren: 0 Highest education level completed: Some College, No Degree service: No Current occupational status: other Details: filing for disability Pets and animals: Yes Pets & animals: cat(s) and dog(s) Leisure activites: music and other Leisure activities details: watching TV Sexually active: No Do you think of yourself as: Straight/Heterosexual Current gender identity: Male Patricia/Christian: Other Special patricia needs: No Agree to transfusion: Yes Physical Exam Narrative: EXAM NARRATIVE: General: Alert, no acute distress. Skin: Warm, dry. Head: Normocephalic, atraumatic. Neck: Supple, trachea midline. Eye: Extraocular movements are intact. Ears, nose, mouth and throat: mucosa moist. Cardiovascular: Regular, Normal peripheral perfusion. Respiratory: Lungs are clear to auscultation, respirations are non-labored, breath sounds are equal, Symmetrical chest wall expansion. Gastrointestinal: Soft, Nontender, Non distended Musculoskeletal: Normal ROM, no deformity. Neurological: Alert and oriented, No focal neurological deficit observed. Psychiatric: Cooperative, appropriate mood & affect. Course Vital Signs: Vital signs: Vital Signs Temperature 98.4 F 11/15/24 01:37 Pulse Rate 122 H 11/15/24 01:37 Respiratory Rate 16 11/15/24 01:37 Blood Pressure 147/91 11/15/24 01:37 Pulse Oximetry 98 11/15/24 01:37 Oxygen Delivery Me thod Room Air 11/15/24 01:37 MDM - Anxiety Medical Decision Making Consultation: I spoke with Dr. Bowie who is on-call for psychiatry. He is quite familiar with the patient. He just left the unit less than 24 hours ago. Given that the patient is resolved and wants to go to his clinic appointment the morning Dr. Johnson agrees that we can let him go for now. He is consistent and seeking help whenever he has suicidal thoughts. Assessment and plan: Anxiety - Discharged home - Discussed plan with patient. Answered any questions. - Evaluation and treatment of this problem were appropriate in the emergency setting. No radiology studies performed this visit Discharge Plan Discharge Patient Disposition: Home Clinical Impression: Acute anxiety Condition: Stable Prescriptions: No Action propranolol 20 mg tablet 20 mg PO BID PRN (Reason: anxiety) Qty: 60 2RF hydroxyzine HCl 50 mg tablet 50 mg PO BID PRN (Reason: anxiety) Qty: 60 2RF buspirone 15 mg tablet 15 mg PO TID Qty: 90 11RF divalproex [Depakote] 500 mg tablet,delayed release (DR/EC) 500 mg PO BID 30 Days Qty: 60 11RF trazodone 100 mg tablet 200 mg PO BEDTIME PRN (Reason: insomnia) Qty: 60 11RF naltrexone 50 mg tablet 50 mg PO DAILY Qty: 30 11RF ibuprofen 200 mg Tablet 400 mg PO Q6H PRN (Reason: Pain) cetirizine [Zyrtec] 10 mg tablet 10 mg PO DAILY PRN (Reason: Allergic Symptoms) venlafaxine 150 mg capsule,extended release 24hr 300 mg PO DAILY 30 Days Qty: 60 1RF Discharge Orders: Discharge ED (Routine); Ordered 11/15/24 Ordered By: Esther Handy Discharge Diet: As Directed Discharge Activity: Increase activity as tolerated Patient Instructions: Opioid Safety, Pain Management Activity Restrictions/Additional Instructions: Please keep your therapist appointment for the morning. If you develop any suicidal thoughts please seek help immediately. Thank you for choosing [facility] for your healthcare needs today. You have been screened and evaluated and felt safe for discharge. Health conditions do change or evolve sometimes and as such it is important that you follow up with your Primary Doctor to be re checked, 3-5 days is a general good time frame for follow up. You are always welcome to return to the ED for re assessment if your symptoms are worsening or you have new concerns Print Language: Amharic Coding Level of Care Code ED Ip/Mosaic Technician for Nish Stapleton
[2024-11-15 01:57] VITALS: BP 147/91; PULSE 122; RESP 16; O2SAT 98
--- NOTE | 2024-11-15 01:59 | PC.NURSE ---
PT WAS D/C. PROVIDER CALLED [facility] AND ADVISED THAT PT COULD BE LET GO AND GO TO THERAPY APPT IN THE MORNING.
== END 2024-11-15 01:59 | disposition home or self-care (01) ==
PROVIDERS: Emergency Provider Emergency Medicine
DX: F41.8 Other specified anxiety disorders (principal); F17.210 Nicotine dependence, cigarettes, uncomplicated
CPT/HCPCS: 99283

== ENCOUNTER 2024-11-16 21:03 | Inpatient (IN) | payer MEDICAID, SELFPAY ==
[2024-10-31 12:58] VITALS: BP 124/79; BMI 30.4
[2024-11-16] VITALS (23 sets, daily range): BP systolic 120–154; BP diastolic 81–98; PULSE 61–93; RESP 16–30; TEMP 36.4–36.8; O2SAT 95–100; BMI 31.7
--- NOTE | 2024-11-16 21:21 | ED_ITS ---
Documented by User: Ac Hong DO 11/16/24 21:40 HPI - Overdose 2 General: Chief Complaint: Overdose Stated Complaint: overdose Time Seen by Provider: 11/16/24 21:16 History of Present Illness: 24-year-old male presents with intention al overdose. Patient states that he took 50-75 of his BuSpar 50 mg tablets and 15-20 of his Effexor approximately 40 minutes prior to arrival. Patient reports he took the pills late about 5 minutes and then called PD and ambulance. Patient has a psych history and has been here multiple times her last couple days wanting admitted for psych. Patient reports he did it because his parents were fighting at this time patient does not have any symptoms. Patient's medications were filled on 10/23/2024. He reports that he has been taking them on and off and does not know exactly how much of his meds he actually took. Related Data Home Medications ?Medication ?Instructions ?Recorded ?Confirmed ibuprofen 200 mg tablet 400 mg PO Q6H PRN Pain 11/1711/15/24 cetirizine 10 mg tablet (Zyrtec) 10 mg PO DAILY PRN Al lergic 03/21/24 11/15/24 Symptoms Previous Rx's ?Medication ?Instructions ?Recorded hydroxyzine HCl 50 mg tablet 50 mg PO BID PRN anxiety #60 tabs 09/10/24 propranolol 20 mg tablet 20 mg PO BID PRN anxiety #60 tabs 09/10/24 buspirone 15 mg tablet 15 mg PO TID #90 tabs divalproex 500 mg tablet,delayed 500 mg PO BID 30 days #60 tabs 10/23/24 release (Depakote) naltrexone 50 mg tablet 50 mg PO DAILY #30 tabs 04/10 trazodone 100 mg tablet 200 mg (2 x 100 mg) PO BEDTI ME PRN 10/23/24 insomnia #60 tabs nicotine (polacrilex) 4 mg buccal 4 mg buccal Q1H PRN nicotine 11/15/24 lozenge (Nicorette) cravings #108 ea nicotine 21 mg/24 hr daily 1 patch transdermal DAILY # 28 ea 11/15/24 transdermal patch varenicline tartrate 1 mg tablet 1 mg PO BID #56 tabs 11/15/24 venlafaxine 150 mg 300 mg (2 x 150 mg) PO DAILY 30 11/15/24 capsule,extended release 24 hr days #60 caps Allergies Allergy/AdvReac Type Severity Reaction Status Date / Time No Known Allergies Allergy Verified 11/15/24 10:05 Review of Systems 2 Const: Denies: fever(s) or chills Card: Denies: chest pain or palpitations Resp: Denies: dyspnea or wheezing : Denies: flank pain Psych: Reports: depression and suicidal ideation PFSH ED 2 PFSH: Medical History (Updated 11/17/24 @ 04:38 by James Zamudio DO) Septic arthritis of knee Psychiatric care History of OCD (obsessive compulsive disorder) Depression Family History Other Cancer Hypertension Social History (Updated 11/16/24 @ 23:26 by Alvarado Kim MD) Smoking and tobacco/nicotine status: current every day tobacco/nicotine user cigarettes Packs smoked per day: 10 Years cigarettes smoked: 10, e-cigarettes E- Cigarette Details: e-cigarette and with nicotine E-cig/vape details: 10,000 puff last only a week and smokeless tobacco Smokeless tobacco user: chewing tobacco Smokeless tobacco details: from time to time Quit status (tobacco/nicotine): considering quitting Second hand smoke exposure: Yes Alcohol intake: never Substance/Drug Use: current Substance/Drug use frequency: daily Additional social history: Patient states he wants full code on 11/16/2024 Adopted: No Caregiver/support person: No Lives independently: Yes Household members: family Housing: House Marital status: Single Number of children: 0 Number of grandchildren: 0 Highest education level completed: Some College, No Degree service: No Current occupational status: other Details: filing for disability Pets and animals: Yes Pets & animals: cat(s) and dog(s) Leisure activites: music and other Leisure activities details: watching TV Sexually active: No Do you think of yourself as: Straight/Heterosexual Current gender identity: Male Patricia/Orthodox: Other Special patricia needs: No Agree to transfusion: Yes Physical Exam 2 Const: COMMON NORMALS: no acute distress, patient oriented x3 and alert Resp: COMMON NORMALS: normal respiratory effort, No use of accessory muscles and clear to auscultation bilaterally AUSCULTATION: clear to auscultation bilaterally Cardio: COMMON NORMALS: regular rate and regular rhythm RATE: regular rate RHYTHM: regular rhythm GI: COMMON NORMALS: Soft to palpation and non-tender PALPATION: Yes Soft to palpation Extremity: COMMON NORMALS: normal to inspection, full ROM and capillary refill normal Neuro: COMMON NORMALS: patient oriented x3 SENSORIUM/ORIENTATION: Yes alert Course 2 Vital Signs: Vital signs: Vital Signs Temperature 98.2 F 11/17/24 03:19 Pulse Rate 80 11/17/24 03:30 Respiratory Rate 18 11/16/24 22:52 Blood Pressure 141/96 11/17/24 03:30 Pulse Oximetry 93 11/17/24 03:30 Oxygen Delivery Me thod Room Air 11/16/24 23:05 MDM - Overdose Medical Decision Making Patient's care was turned over to Dr. Zamudio at end of shift pending evaluation and workup. Patient was stable at that time. awaiting recommendations from poison control. Lab Data 11/16/24 20:35 11/16/24 20:35 Laboratory Results WBC 16.40 10^3/uL (3.29-11.43) H 11/16/24 20:35 RBC 5.16 10^6/uL (3.85-5.65) 11/16/24 20:35 Hgb 15.70 g/dL (11.27-16.99) 11/16/24 20:35 Hct 47.4 % (37-53) 11/16/24 20:35 MCV 91.9 fl (82-101) 11/16/24 20:35 MCH 30.4 pg (27-33) 11/16/24 20:35 MCHC 33.1 g/dL (30-55) 11/16/24 20:35 RDW 12.3 % (12.1-15.1) 11/16/24 20:35 Plt Count 311 10^3/cmm (157-399) 11/16/24 20:35 MPV 9.5 fL (7.4-10.4) 11/16/24 20:35 Neut % (Auto) 79.2 % 11/16/24 20:35 Lymph % (Auto) 14.0 % 11/16/24 20:35 [place] % (Auto) 5.7 % 11/16/24 20:35 Eos % (Auto) 0.5 % 11/16/24 20:35 Baso % (Auto) 0.2 % 11/16/24 20:35 Neut # (Auto) 12.98 10^3/uL (1.8-7.7) H 11/16/24 20:35 Lymph # (Auto) 2.3 10^3/uL (0.8-4.8) 11/16/24 20:35 [place] # (Auto) 0.9 10^3/uL (0.2-0.9) 11/16/24 20:35 Eos # (Auto) 0.1 10^3/uL (0.0-0.8) 11/16/24 20:35 Baso # (Auto) 0.0 10^3/uL (0.0-0.1) 11/16/24 20:35 Nucleated RBC % (auto) 0 % 11/16/24 20:35 Nucleated RBCs # 0.0 /100WBC 11/16/24 20:35 Sodium 140 mmol/L (136-145) 11/16/24 20:35 Potassium 3.9 mmol/L (3.5-5.1) 11/16/24 20:35 Chloride 102 mmol/L (98-107) 11/16/24 20:35 Carbon Dioxide 22 mmol/L (22-29) 11/16/24 20:35 Anion Gap 19.9 (5-19) H 11/16/24 20:35 BUN 13 mg/dL (6-20) 11/16/24 20:35 Creatinine 0.8 mg/dL (0.7-1.2) 11/16/24 20:35 GFR Calculation 120.9 mL/min (90-130) 11/16/24 20:35 Glucose 133 mg/dL (65-115) H 11/16/24 20:35 Calculated Osmolality 292 mOsm/kg (285-295) 11/16/24 20:35 Calcium 9.9 mg/dL (8.5-10.5) 11/16/24 20:35 Total Bilirubin 0.5 mg/dL (0.15-1.2) 11/16/24 20:35 AST 15 U/L (0-40) 11/16/24 20:35 ALT 13 U/L (0-41) 11/16/24 20:35 Alkaline Phosphatase 70 U/L (40-130) 11/16/24 20:35 Total Protein 8.0 g/dL (6.6-8.7) 11/16/24 20:35 Albumin 5.1 g/dL (3.5-5.2) 11/16/24 20:35 Globulin 2.9 g/dL (1.3-4.6) 11/16/24 20:35 Urine Color Yellow (Yellow) 11/16/24 22:13 Urine Appearance Clear (CLEAR) 11/16/24 22:13 Urine pH 7.0 (5-7) 11/16/24 22:13 Ur Specific [place] 1.021 (1.005-1.030) 11/16/24 22:13 Urine Protein Negative (Negative) 11/16/24 22:13 Urine Glucose (UA) Negative (Normal) 11/16/24 22:13 Urine Ketones Trace (Negative) 11/16/24 22:13 Urine Blood Negative (Negative) 11/16/24 22:13 Urine Nitrate Negative (Negative) 11/16/24 22:13 Urine Bilirubin Negative (Negative) 11/16/24 22:13 Urine Urobilinogen 1.0 mg/dL (Negative) 11/16/24 22:13 Ur Leukocyte Esterase Trace (Negative) A 11/16/24 22:13 Urine RBC 0-2 /hpf (0-2) 11/16/24 22:13 Urine WBC 11-20 /hpf (0-5) H 11/16/24 22:13 Ur Squamous Epith Cells 0-5 /hpf (0-5) 11/16/24 22:13 Amorphous Sediment Not Reportable 11/16/24 22:13 Urine Bacteria None seen /hpf (NONE) 11/16/24 22:13 Hyaline Casts 1.21 /lpf 11/16/24 22:13 Salicylates < 0.3 mg/dL (3-10) L 11/16/24 20:35 Urine Opiates Screen Negative ng/mL (Negative) 11/16/24 22:13 Acetaminophen < 5.0 ug/mL (10-30) L 11/16/24 20:35 Ur Barbiturates Screen Negative ng/mL (Negative) 11/16/24 22:13 Ur Phencyclidine Scrn Negative ng/mL (Negative) 11/16/24 22:13 Ur Amphetamines Screen Negative ng/mL (Negative) 11/16/24 22:13 U Benzodiazepines Scrn Negative ng/mL (Negative) 11/16/24 22:13 Urine Cocaine Screen Negative ng/mL (Negative) 11/16/24 22:13 U Marijuana (THC) Screen Positive ng/mL (Negative) H 11/16/24 22:13 Ethyl Alcohol < 10 mg/dL (0-10) 11/16/24 20:35 No radiology studies performed this visit Discharge Plan Discharge Patient Disposition: Admitted As Inpatient Admit Provider: Alvarado Kim Clinical Impression: Drug overdose, Suicide attempt Condition: Stable Coding Level of Care Code ED Saxophone Player for Chg Fwd Documented by User: James Zamudio DO 11/17/24 04:38 HPI - Overdose 2 General: Chief Complaint: Overdose Stated Complaint: overdose Time Seen by Provider: 11/16/24 21:16 Related Data Home Medications ?Medication ?Instructions ?Recorded ?Confirmed ibuprofen 200 mg tablet 400 mg PO Q6H PRN Pain 11/1711/15/24 cetirizine 10 mg tablet (Zyrtec) 10 mg PO DAILY PRN Al lergic 03/21/24 11/15/24 Symptoms Previous Rx's ?Medication ?Instructions ?Recorded hydroxyzine HCl 50 mg tablet 50 mg PO BID PRN anxiety #60 tabs 09/10/24 propranolol 20 mg tablet 20 mg PO BID PRN anxiety #60 tabs 09/10/24 buspirone 15 mg tablet 15 mg PO TID #90 tabs divalproex 500 mg tablet,delayed 500 mg PO BID 30 days #60 tabs 10/23/24 release (Depakote) naltrexone 50 mg tablet 50 mg PO DAILY #30 tabs 04/10 trazodone 100 mg tablet 200 mg (2 x 100 mg) PO BEDTI ME PRN 10/23/24 insomnia #60 tabs nicotine (polacrilex) 4 mg buccal 4 mg buccal Q1H PRN nicotine 11/15/24 lozenge (Nicorette) cravings #108 ea nicotine 21 mg/24 hr daily 1 patch transdermal DAILY # 28 ea 11/15/24 transdermal patch varenicline tartrate 1 mg tablet 1 mg PO BID #56 tabs 11/15/24 venlafaxine 150 mg 300 mg (2 x 150 mg) PO DAILY 30 11/15/24 capsule,extended release 24 hr days #60 caps Allergies Allergy/AdvReac Type Severity Reaction Status Date / Time No Known Allergies Allergy Verified 11/15/24 10:05 PFSH ED 2 PFSH: Medical History (Updated 11/17/24 @ 04:38 by James Zamudio DO) Septic arthritis of knee Psychiatric care History of OCD (obsessive compulsive disorder) Depression Family History Other Cancer Hypertension Social History (Updated 11/16/24 @ 23:26 by Alvarado Kim MD) Smoking and tobacco/nicotine status: current every day tobacco/nicotine user cigarettes Packs smoked per day: 10 Years cigarettes smoked: 10, e-cigarettes E- Cigarette Details: e-cigarette and with nicotine E-cig/vape details: 10,000 puff last only a week and smokeless tobacco Smokeless tobacco user: chewing tobacco Smokeless tobacco details: from time to time Quit status (tobacco/nicotine): considering quitting Second hand smoke exposure: Yes Alcohol intake: never Substance/Drug Use: current Substance/Drug use frequency: daily Additional social history: Patient states he wants full code on 11/16/2024 Adopted: No Caregiver/support person: No Lives independently: Yes Household members: family Housing: House Marital status: Single Number of children: 0 Number of grandchildren: 0 Highest education level completed: Some College, No Degree service: No Current occupational status: other Details: filing for disability Pets and animals: Yes Pets & animals: cat(s) and dog(s) Leisure activites: music and other Leisure activities details: watching TV Sexually active: No Do you think of yourself as: Straight/Heterosexual Current gender identity: Male Patricia/Orthodox: Other Special patricia needs: No Agree to transfusion: Yes Course 2 Vital Signs: Vital signs: Vital Signs Temperature 98.2 F 11/17/24 03:19 Pulse Rate 80 11/17/24 03:30 Respiratory Rate 18 11/16/24 22:52 Blood Pressure 141/96 11/17/24 03:30 Pulse Oximetry 93 11/17/24 03:30 Oxygen Delivery Me thod Room Air 11/16/24 23:05 MDM - Overdose Medical Decision Making Patient's care was turned over to Dr. Zamudio at end of shift pending evaluation and workup. Patient was stable at that time. awaiting recommendations from poison control. Patient remained stable. The problem with venlafaxine ingestion is potential for delayed onset seizure. This can happen for up to 24 hours after ingestion. Because of this, the patient will be observed in the ICU until medically cleared. He has been placed under 96-hour hold. Spoke with psychiatry. They will consult in the morning. Hospitalist will see the patient. Lab Data 11/16/24 20:35 11/16/24 20:35 Laboratory Results WBC 16.40 10^3/uL (3.29-11.43) H 11/16/24 20:35 RBC 5.16 10^6/uL (3.85-5.65) 11/16/24 20:35 Hgb 15.70 g/dL (11.27-16.99) 11/16/24 20:35 Hct 47.4 % (37-53) 11/16/24 20:35 MCV 91.9 fl (82-101) 11/16/24 20:35 MCH 30.4 pg (27-33) 11/16/24 20:35 MCHC 33.1 g/dL (30-55) 11/16/24 20:35 RDW 12.3 % (12.1-15.1) 11/16/24 20:35 Plt Count 311 10^3/cmm (157-399) 11/16/24 20:35 MPV 9.5 fL (7.4-10.4) 11/16/24 20:35 Neut % (Auto) 79.2 % 11/16/24 20:35 Lymph % (Auto) 14.0 % 11/16/24 20:35 [place] % (Auto) 5.7 % 11/16/24 20:35 Eos % (Auto) 0.5 % 11/16/24 20:35 Baso % (Auto) 0.2 % 11/16/24 20:35 Neut # (Auto) 12.98 10^3/uL (1.8-7.7) H 11/16/24 20:35 Lymph # (Auto) 2.3 10^3/uL (0.8-4.8) 11/16/24 20:35 [place] # (Auto) 0.9 10^3/uL (0.2-0.9) 11/16/24 20:35 Eos # (Auto) 0.1 10^3/uL (0.0-0.8) 11/16/24 20:35 Baso # (Auto) 0.0 10^3/uL (0.0-0.1) 11/16/24 20:35 Nucleated RBC % (auto) 0 % 11/16/24 20:35 Nucleated RBCs # 0.0 /100WBC 11/16/24 20:35 Sodium 140 mmol/L (136-145) 11/16/24 20:35 Potassium 3.9 mmol/L (3.5-5.1) 11/16/24 20:35 Chloride 102 mmol/L (98-107) 11/16/24 20:35 Carbon Dioxide 22 mmol/L (22-29) 11/16/24 20:35 Anion Gap 19.9 (5-19) H 11/16/24 20:35 BUN 13 mg/dL (6-20) 11/16/24 20:35 Creatinine 0.8 mg/dL (0.7-1.2) 11/16/24 20:35 GFR Calculation 120.9 mL/min (90-130) 11/16/24 20:35 Glucose 133 mg/dL (65-115) H 11/16/24 20:35 Calculated Osmolality 292 mOsm/kg (285-295) 11/16/24 20:35 Calcium 9.9 mg/dL (8.5-10.5) 11/16/24 20:35 Total Bilirubin 0.5 mg/dL (0.15-1.2) 11/16/24 20:35 AST 15 U/L (0-40) 11/16/24 20:35 ALT 13 U/L (0-41) 11/16/24 20:35 Alkaline Phosphatase 70 U/L (40-130) 11/16/24 20:35 Total Protein 8.0 g/dL (6.6-8.7) 11/16/24 20:35 Albumin 5.1 g/dL (3.5-5.2) 11/16/24 20:35 Globulin 2.9 g/dL (1.3-4.6) 11/16/24 20:35 Urine Color Yellow (Yellow) 11/16/24 22:13 Urine Appearance Clear (CLEAR) 11/16/24 22:13 Urine pH 7.0 (5-7) 11/16/24 22:13 Ur Specific [place] 1.021 (1.005-1.030) 11/16/24 22:13 Urine Protein Negative (Negative) 11/16/24 22:13 Urine Glucose (UA) Negative (Normal) 11/16/24 22:13 Urine Ketones Trace (Negative) 11/16/24 22:13 Urine Blood Negative (Negative) 11/16/24 22:13 Urine Nitrate Negative (Negative) 11/16/24 22:13 Urine Bilirubin Negative (Negative) 11/16/24 22:13 Urine Urobilinogen 1.0 mg/dL (Negative) 11/16/24 22:13 Ur Leukocyte Esterase Trace (Negative) A 11/16/24 22:13 Urine RBC 0-2 /hpf (0-2) 11/16/24 22:13 Urine WBC 11-20 /hpf (0-5) H 11/16/24 22:13 Ur Squamous Epith Cells 0-5 /hpf (0-5) 11/16/24 22:13 Amorphous Sediment Not Reportable 11/16/24 22:13 Urine Bacteria None seen /hpf (NONE) 11/16/24 22:13 Hyaline Casts 1.21 /lpf 11/16/24 22:13 Salicylates < 0.3 mg/dL (3-10) L 11/16/24 20:35 Urine Opiates Screen Negative ng/mL (Negative) 11/16/24 22:13 Acetaminophen < 5.0 ug/mL (10-30) L 11/16/24 20:35 Ur Barbiturates Screen Negative ng/mL (Negative) 11/16/24 22:13 Ur Phencyclidine Scrn Negative ng/mL (Negative) 11/16/24 22:13 Ur Amphetamines Screen Negative ng/mL (Negative) 11/16/24 22:13 U Benzodiazepines Scrn Negative ng/mL (Negative) 11/16/24 22:13 Urine Cocaine Screen Negative ng/mL (Negative) 11/16/24 22:13 U Marijuana (THC) Screen Positive ng/mL (Negative) H 11/16/24 22:13 Ethyl Alcohol < 10 mg/dL (0-10) 11/16/24 20:35 Discharge Plan Discharge Patient Disposition: Admitted As Inpatient Admit Provider: Alvarado Kim Clinical Impression: Drug overdose, Suicide attempt Condition: Stable Coding Level of Care Code ED Saxophone Player for Nish Stapleton
[2024-11-16 21:24] LABS: Basophils % 0.2 %; Eosinophils # 0.1 10^3/uL (0.0-0.8); Eosinophils % 0.5 %; Hematocrit 47.4 % (37-53); Lymphocytes # 2.3 10^3/uL (0.8-4.8); Mean Corpuscular HGB Conc 33.1 g/dL (30-55); Mean Corpuscular Hemoglobin 30.4 pg (27-33); Mean Corpuscular Volume 91.9 fl (82-101); Mean Platelet Volume 9.5 fL (7.4-10.4); Monocytes # 0.9 10^3/uL (0.2-0.9); Monocytes % 5.7 %; Neutrophils # 12.98 10^3/uL (1.8-7.7); Neutrophils % 79.2 %; Nucleated Red Blood Cells % 0 %; Platelet Count 311 10^3/cmm (157-399); Red Blood Count 5.16 10^6/uL (3.85-5.65); Red Cell Distribution Width 12.3 % (12.1-15.1)
[2024-11-16 21:44] LABS: Alanine Aminotransferase 13 U/L (0-41); Albumin Level 5.1 g/dL (3.5-5.2); Alkaline Phosphatase 70 U/L (40-130); Anion Gap 19.9 (5-19); Aspartate Amino Transferase 15 U/L (0-40); Blood Urea Nitrogen 13 mg/dL (6-20); Calcium 9.9 mg/dL (8.5-10.5); Carbon Dioxide 22 mmol/L (22-29); Chloride 102 mmol/L (98-107); Creatinine Clr Calc Pharmacy 166.8159; Globulin 2.9 g/dL (1.3-4.6); Glomerular Filtration Rate 120.9 mL/min (90-130); Glucose 133 mg/dL (65-115); Osmolality Calculated 292 mOsm/kg (285-295); Potassium 3.9 mmol/L (3.5-5.1); Sodium 140 mmol/L (136-145); Total Bilirubin 0.5 mg/dL (0.15-1.2)
[2024-11-16 21:45] LABS: Acetaminophen < 5.0 ug/mL (10-30); Alcohol Level < 10 mg/dL (0-10); Salicylate < 0.3 mg/dL (3-10)
--- NOTE | 2024-11-16 21:50 | ECG_ITS ---
[facility] Test Date: 2024-11-16 Pat Name: Parth Newman Department: Room: Gender: Male Sample Stitcher: : 2000 Requested By: Ac Hong Order Number: [id number] Brenden MD: Chang Russell M.D. Measurements Intervals [place] Rate: 59 P: 35 OR: 146 QRS: 16 QRSD: 103 T: 0 QT: 389 QTc: 387 Interpretive Statements SINUS BRADYCARDIA NONSPECIFIC T-WAVE ABNORMALITY Compared to ECG 07/08/2024 09:12:14 Sinus rhythm no longer present T-wave abnormality still present Electronically Signed On 11-18-2024 09:17:51 CDT by Chang Russell M.D. [email or web address]
--- NOTE | 2024-11-16 22:25 | PC.NURSE ---
96 Hour Involuntary Hold Patient Rights have been reviewed with the patient and a copy of the same has been provided to him. Security Officers Len and Britni were present at bedside during presentation of Rights.
[2024-11-16 22:35] LABS: Bacteria Urine None Seen /hpf; Hyaline Casts Urine 1.21 /lpf; RBC Urine 0-2 /hpf (0-2); Squamous Epithelial Cell Urine 0-5 /hpf (0-5)
[2024-11-16 22:37] LABS: Add Urine Microscopic? YES; Bilirubin Urine Negative (Negative); Blood Urine Negative (Negative); Glucose Urine UA Negative (Normal); Ketones Urine Trace (Negative); Leukocyte Esterase Urine Trace (Negative); Nitrate Urine Negative (Negative); Protein Urine Negative (Negative); Specific Gravity, Urine 1.021 (1.005-1.030); Urine Appearance Clear (CLEAR); Urine Color Yellow (Yellow)
[2024-11-16 22:39] LABS: Amphetamines Screen Urine Negative (Negative); Barbiturates Screen Urine Negative (Negative); Benzodiazepines Screen Urine Negative (Negative); Cocaine Screen Urine Negative (Negative); Opiate Screen Urine Negative (Negative); PCP Screen Urine Negative (Negative); THC Screen Urine Positive (Negative)
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
[2024-11-16] MEDS: lactated ringers 1,000 ML 100 ML IV (23:33)
[2024-11-16] MEDS: hyDROXYzine 25 mg Capsule 50 MG PO (23:59)
[2024-11-17] VITALS (84 sets, daily range): BP systolic 100–163; BP diastolic 59–108; PULSE 59–120; RESP 18; TEMP 36.1–37.5; O2SAT 87–100
[2024-11-17] MEDS: LORazepam 1 MG/0.5 ML injection IVP ×2 (01:17→03:09)
[2024-11-17] MEDS: ondansetron 2 mg/ML SDV 2 mL 4 MG IVP (01:39)
[2024-11-17] MEDS: ibuprofen 200 mg Tablet 400 MG PO (02:36)
[2024-11-17] MEDS: nicotine 2 mg Gum 4 MG BUCCAL (04:09)
[2024-11-17] MEDS: LORazepam 1 MG/0.5 ML injection 2 MG IVP ×5 (04:25→19:38)
[2024-11-17] MEDS: potassium chloride ER 20 mEq Tablet 40 MEQ PO (06:01)
[2024-11-17] MEDS: lactated ringers 1,000 ML 999 ML IV ×2 (06:02→07:27)
[2024-11-17] MEDS: midazolam hcl 100 MG/100 ML BAG IV (06:10)
--- NOTE | 2024-11-17 06:17 | P.PN_ITS ---
Subjective 2 Subjective: 24-year-old male with buspiron e and bupropion overdose has had increase clonus of his legs, sweating tachycardia and hypertension. He has been receiving lorazepam 2 mg every 1 hour but not completely effective in controlling his progression of symptoms. I have started since cyproheptadine 12 mg dose x 1 and ordered a midazolam drip Medications: Medication Review Details: Start midazolam drip and cyproheptadine Vitals/I&O/Wt Last Vital Signs Temp 98.2 F 11/17/24 03:19 Pulse 79 11/17/24 05:33 Resp 18 11/16/24 22:52 BP 146/108 11/17/24 05:30 Pulse Ox 94 11/17/24 05:30 O2 Del Method Room Air 11/16/24 23:05 11/16/24 11/16/24 11/17/24 14:59 22:59 06:59 Intake Total 500 / 500 2090 / 2590 Balance 500 / 500 2090 / 2590 Weight last 48 hrs Weight 97.522 kg Weight 97.522 kg Physical Exam 2 Narrative: General Well-developed well-nourished overweight male diaphoretic intermittently tremulous legs are shaking in bed CV regular rate and rhythm lungs clear to auscultation bilaterally Skin diaphoretic Mood and affect anxious but cooperative Data 11/16/24 20:35 11/16/24 20:35 A&P Assessment and plan (1) Serotonin syndrome: Patient was counseled regarding his temperature, blood pressure and muscle clonus abnormalities in response to serotonin toxicity. I counseled him that he may require intubation as part of his treatment and he is agreeable. Fluid bolus lactated Ringer's x 2 L, continue cyproheptadine 4 mg every 2 hours as needed and start Versed drip. RN is starting additional IV at this time. PDMP PDMP Reviewed: Not Reviewed Attestations 2 Medical Necessity Statement*: Patient will require greater than 2 midnights in the hospital and then subsequently mental health admission Critical Care Time: 45 minutes spent in evaluation and coord ination of care for this critically ill patient Coding Level of Care Code Critical Care >/= 30 minutes Diagnoses Serotonin syndrome G90.81 Time Spent (min) 45
--- NOTE | 2024-11-17 07:14 | PC.NURSE ---
0714 Patient awake watching tv. ASk if it is time to have another dose of ativan, when told it is, he requested another does, just helps him feel better he says. Intermittent legs shaking, says hurts ivana like cramping, just hurts. Pyxsis is out of stock at this moment. Notified pharmacy.
--- NOTE | 2024-11-17 08:27 | ECG_ITS ---
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 Measurements Intervals [place] Rate: 85 P: 21 VT: 157 QRS: 22 QRSD: 99 T: -3 QT: 322 QTc: 383 Interpretive Statements SINUS RHYTHM NONSPECIFIC T-WAVE ABNORMALITY Compared to ECG 11/16/2024 21:50:55 Sinus bradycardia no longer present T-wave abnormality still present Electronically Signed On 11-18-2024 09:17:35 CDT by Chang Russell M.D. [email or web address]
[2024-11-17] MEDS: lactated ringers 1,000 ML 150 ML IV ×3 (08:34→21:56)
[2024-11-17 08:40] LABS: Blood Urea Nitrogen 8 mg/dL (6-20); Calcium 9.9 mg/dL (8.5-10.5); Carbon Dioxide 23 mmol/L (22-29); Chloride 105 mmol/L (98-107); Creatine Phosphokinase 130 U/L (39-308); Creatinine Clr Calc Pharmacy 190.6468; Glucose 76 mg/dL (65-115); Osmolality Calculated 291 mOsm/kg (285-295); Sodium 142 mmol/L (136-145)
[2024-11-17 08:41] LABS: Anion Gap 17.8 (5-19); Lactate (Lactic Acid level) 1.8 mmol/L (0.5-2.2); Potassium 3.8 mmol/L (3.5-5.1)
[2024-11-17 08:46] LABS: Alcohol Level < 10 mg/dL (0-10); NT Pro B Type Natriuretic Pept 103 pg/mL (0-125)
[2024-11-17] MEDS: divalproex DR 500 mg Tablet PO ×2 (08:53→17:37)
[2024-11-17] MEDS: naltrexone hcl 50 mg Tablet PO (08:53)
[2024-11-17] MEDS: dexmedeTOMIDine 0.9 % NaCL 400 MCG/100 ML PREMIX IV (09:37)
--- NOTE | 2024-11-17 12:12 | PC.NURSE ---
1200 patient sleeping well. no further legs shaking, does occasionally have a jerk of the legs.
--- NOTE | 2024-11-17 14:13 | PC.NURSE ---
1410 Has been sleeping well for past two hours, occasionally moving around a small amount. Now woke up, sat up, let me replace a couple EKG patches, used urinal, pulled blankets up, and laid back down. No c/o's.
--- NOTE | 2024-11-17 15:13 | P.PN_ITS ---
Subjective 2 Subjective: - Patient was seen early this morning, h e is alert to person, place, time, is diaphoretic, tachycardic, has a tremor pleasant, has inducible clonus, no hyperthermia, no hallucinations, - Does report to me that he attempted to kill himself by taking BuSpar, Effexor - No active suicidal ideation, no halluc inations - He has received cyproheptadine earlier this morning, he is on a Versed drip going at 2 - Discussed with nursing staff, will giv e another dose of cyproheptadine, wean off Versed drip - Patient is off Versed drip, given a do se of Ativan, continues to have agitation, inducible clonus, diaphoretic, tachycardic, -continues to have symptomatology we will start him on a Precedex drip - Spoke to poison control Vitals/I&O/Wt Last Vital Signs Temp 97.1 F L 11/17/24 14:15 Pulse 71 11/17/24 15:00 Resp 18 11/17/24 09:21 BP 126/74 11/17/24 15:00 Pulse Ox 97 11/17/24 15:00 O2 Del Method Room Air 11/17/24 09:21 11/17/24 11/17/24 11/17/24 06:59 14:59 22:59 Intake Total 2356.717 / 2856.717 2100.512 / 2100.512 985 / 3085.512 Output Total 1999 Balance 2356.717 / 2856.717 100.512 / 100.512 985 / 1085.512 Weight last 48 hrs Weight 97.522 kg Weight 97.522 kg Physical Exam 2 Const: COMMON NORMALS: no acute distress and patient oriented x3 OTHER: Diaphoretic, clonus present, spontaneous, Resp: COMMON NORMALS: normal respiratory effort, No retractions, No use of accessory muscles and clear to auscultation bilaterally AUSCULTATION: clear to auscultation bilaterally Cardio: COMMON NORMALS: regular rhythm, S1 normal heart sound present and S2 normal heart sound present RATE: tachycardic RHYTHM: regular rhythm H EART SOUNDS: S1 normal heart sound present and S2 normal heart sound present GI: COMMON NORMALS: Normal to inspection, nondistended, normoactive bowel sounds present and non-tender Extremity: COMMON NORMALS: no pedal edema Neuro: COMMON NORMALS: patient oriented x3, CN's II-XII intact bilaterally and moves all extremities Psych: COMMON NORMALS: mental status grossly normal Data 11/16/24 20:35 11/17/24 08:11 A&P Assessment and plan (1) Drug overdose: (2) Bipolar disorder with depression: Hold bupropion and BuSpar for now (3) Borderline personality disorder: Unclear diagnosis (4) Major depressive disorder: (5) Serotonin syndrome: (6) Suicide attempt: Plan Serotonin syndrome - No hyperthermia, - Does have inducible clonus, tachycardia, hypertension, diaphoresis, agitation Plan - Has received loading dose of Cipro hepta Onel 12 mg p.o. once, will continue cyproheptadine 4 mg p.o. every 6 hours as needed - Ativan 2 mg IV push every 4 hours as needed anxiety, agitation, nausea -continue Precedex drip - Monitor vitals closely, monitor for fevers, monitor respiratory status -Suicide attempt, currently under 96-hour hold -Continue Depakote, no risk of serotonin syndrome exacerbation -Continue ReVia, no risk of serotonin syndrome -Zofran for nausea, but will limit use due to risk of serotonin syndrome - Full code PDMP PDMP Reviewed: Not Reviewed Attestations 2 Medical Necessity Statement*: Patient requires hospitalization for suicide attempt, serotonin syndrome, on Precedex drip requiring ICU level care Diagnoses Drug overdose T50.902A Encounter type: initial encounter Injury intent: intentional self-harm Bipolar disorder with depression F31.9 Borderline personality disorder F60.3 Major depressive disorder F32.9 Serotonin syndrome G90.81 Suicide attempt T14.91XA
--- NOTE | 2024-11-17 15:44 | PC.NURSE ---
1544 Placed patients clothing bag in locker in ICU, and counted Rx meds and placed in pyxsis.
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
[2024-11-17] MEDS: dexmedeTOMIDine 0.9 % NaCL 400 MCG/100 ML PREMIX 7.31 MCG IV (23:34)
[2024-11-18] VITALS (69 sets, daily range): BP systolic 92–154; BP diastolic 50–104; PULSE 50–128; RESP 16–18; TEMP 29.4–36.9; O2SAT 92–100
[2024-11-18] MEDS: lactated ringers 1,000 ML 150 ML IV (04:35)
[2024-11-18] MEDS: LORazepam 1 MG/0.5 ML injection 2 MG IVP ×3 (04:56→13:55)
[2024-11-18 05:38] LABS: Basophils % 0.5 %; Eosinophils # 0.2 10^3/uL (0.0-0.8); Eosinophils % 2.3 %; Hematocrit 47.9 % (37-53); Lymphocytes # 2.7 10^3/uL (0.8-4.8); Lymphocytes % 40.8 %; Mean Corpuscular HGB Conc 32.2 g/dL (30-55); Mean Corpuscular Volume 93.2 fl (82-101); Mean Platelet Volume 9.2 fL (7.4-10.4); Monocytes # 0.6 10^3/uL (0.2-0.9); Monocytes % 8.8 %; Neutrophils # 3.15 10^3/uL (1.8-7.7); Neutrophils % 47.4 %; Nucleated Red Blood Cells % 0 %; Platelet Count 245 10^3/cmm (157-399); Red Blood Count 5.14 10^6/uL (3.85-5.65); Red Cell Distribution Width 12.4 % (12.1-15.1); White Blood Count 6.62 10^3/uL (3.29-11.43)
[2024-11-18 05:55] LABS: Alanine Aminotransferase < 5 U/L (0-41); Albumin Level 4.4 g/dL (3.5-5.2); Alkaline Phosphatase 56 U/L (40-130); Anion Gap 17.3 (5-19); Aspartate Amino Transferase 12 U/L (0-40); Blood Urea Nitrogen 10 mg/dL (6-20); C Reactive Protein 5.6 mg/L (0.0-4.9); Calcium 9.3 mg/dL (8.5-10.5); Carbon Dioxide 23 mmol/L (22-29); Chloride 105 mmol/L (98-107); Creatinine Clr Calc Pharmacy 166.8159; Globulin 2.8 g/dL (1.3-4.6); Glomerular Filtration Rate 120.9 mL/min (90-130); Glucose 90 mg/dL (65-115); Magnesium 2.3 mg/dL (1.7-2.3); Osmolality Calculated 291 mOsm/kg (285-295); Phosphorus 3.6 mg/dL (2.5-4.5); Potassium 4.3 mmol/L (3.5-5.1); Sodium 141 mmol/L (136-145); Total Bilirubin 0.6 mg/dL (0.15-1.2); Total Protein 7.2 g/dL (6.6-8.7)
[2024-11-18 05:56] LABS: Creatine Phosphokinase 98 U/L (39-308)
--- NOTE | 2024-11-18 06:00 | PC.NURSE ---
Patient laying in bed, occasional trembling of lower ext following Lorazepam administration, but overall less anxious. Inquired about nicotine, informed that it had been discontinued but he may be able to get it back with discussion with physician or at least ask why it was discontinued. Voice became more raised at that point and patient stated he was not going to be transferring to NPU in this facility, he would agree to inpatient tx at another facility but it was his right to go somewhere else for treatment. Began kicking bed and this nurse asked him to stop. Patient glared at this nurse and stated he was done and he was giving up . When asked why patient stated I just don't care anymore. and refused to speak further.
[2024-11-18] MEDS: naltrexone hcl 50 mg Tablet PO (08:31)
[2024-11-18] MEDS: divalproex DR 500 mg Tablet PO (08:31)
[2024-11-18] MEDS: CLONazepam 0.5 mg Tablet PO (08:31)
--- NOTE | 2024-11-18 09:03 | PC.NURSE ---
Killian reported to the Nurse that the patient stated he needs anxiety medication and he made non specific threats to harm himself and we better restrain him. Patient received anxiety medications about 30 minutes ago but demands more. Nurse alerted Dr meade, No additional medication ordered.
--- NOTE | 2024-11-18 09:26 | PC.NURSE ---
At approximately 0915, patient became increasingly agitated, Security called to bedside. Patient screaming very loudly, started punching himself in the face and demanding we do something for his anxiety. then attempted to pull IVs out but stopped after verbal intervention.
--- NOTE | 2024-11-18 12:14 | P.PN_ITS ---
Subjective 2 Subjective: Patient was seen this morning, currently alert oriented x 3, following all commands, denies any chest pain, shortness of breath, abdominal pain, no tremors, he has been reported to nursing staff that he wants to hurt himself, he does not he does not want to go to the neuropsychiatric unit, at times he starts yelling and swearing in the ICU, easily becomes agitated, at times breaks down crying Vitals/I&O/Wt Last Vital Signs Temp 97.7 F 11/18/24 07:30 Pulse 75 11/18/24 11:00 Resp 18 11/17/24 09:21 BP 137/84 11/18/24 09:00 Pulse Ox 95 11/18/24 11:00 O2 Del Method Room Air 11/18/24 07:30 11/17/24 11/18/24 11/18/24 22:59 06:59 14:59 Intake Total 2901.334 / 5001.846 1029.639 / 6031.485 1245 / 1245 Output Total 450 / 2450 1999 Balance 2451.334 / 2551.846 1029.639 / 3581.485 -755 / -755 Weight last 48 hrs Weight 97.522 kg Weight 97.522 kg Physical Exam 2 Const: COMMON NORMALS: no acute distress and patient oriented x3 Resp: COMMON NORMALS: normal respiratory effort, No retractions, No use of accessory muscles and clear to auscultation bilaterally AUSCULTATION: clear to auscultation bilaterally Cardio: COMMON NORMALS: regular rate, regular rhythm, S1 normal heart sound present and S2 normal heart sound present RATE: regular rate RHYTHM: r egular rhythm HEART SOUNDS: S1 normal heart sound present and S2 normal heart sound present GI: COMMON NORMALS: Normal to inspection, nondistended, normoactive bowel sounds present and non-tender Extremity: COMMON NORMALS: no pedal edema Neuro: COMMON NORMALS: patient oriented x3 Psych: COMMON NORMALS: mental status grossly normal Data 11/18/24 05:29 11/18/24 05:29 A&P Assessment and plan (1) Drug overdose: (2) Bipolar disorder with depression: Hold bupropion and BuSpar for now (3) Borderline personality disorder: Unclear diagnosis (4) Major depressive disorder: (5) Serotonin syndrome: (6) Suicide attempt: Plan Serotonin syndrome -Resolved -Continue Depakote, no risk of serotonin syndrome exacerbation -Continue ReVia, no risk of serotonin syndrome -Zofran for nausea, but will limit use due to risk of serotonin syndrome - Full code Will moved to neuropsychiatric unit, for suicide attempt, active thoughts of hurting himself, on a one-to-one sitter PDMP PDMP Reviewed: Not Reviewed Attestations 2 Medical Necessity Statement*: Patient requires hospitalization for serotonin syndrome, suicide attempt, Diagnoses Drug overdose T50.902A Encounter type: initial encounter Injury intent: intentional self-harm Bipolar disorder with depression F31.9 Borderline personality disorder F60.3 Major depressive disorder F32.9 Serotonin syndrome G90.81 Suicide attempt T14.91XA
[2024-11-18] MEDS: nicotine 2 mg Gum BUCCAL (13:45)
[2024-11-18] MEDS: haloperidol inj 5 mg/mL INJ 1 mL 1 MG IM (15:04)
--- NOTE | 2024-11-18 15:45 | PC.NURSE ---
Addendum entered by Cheikh Otero RN 11/18/24 15:55: Received by Lela Vincent Note: Home medications delivered to NPU. Still in tamper resistant tape. Current log sheet shows 15mg Buspirone tablets, 24 count.
--- NOTE | 2024-11-18 17:24 | W.PM.NPUPNS ---
Subjective NPU Subjective: 24-year-old male with borderline personality disorder and depression admitted after an overdose on multiple medications. The patient had appeared agitated initially prior to coming onto the unit while in the intensive care unit. He had continued to insist that he be placed in a long-term inpatient psychiatric facility. He had reported continued feelings of hopelessness and reported that he had been angry that his family continued to put pressure on him. He had endorsed some continued feelings of hopelessness and reported low self-esteem. He had reported compliance with his medications currently prior to admission. Mental Status Exam MSE Comments: This is a well-nourished, well-developed, white male, in hospital scrubs seen with poor grooming and good eye contact. There was no evidence of any abnormal involuntary motor movements, except for mild psychomotor agitation. He was cooperative with exam. Speech was mostly normal in rate and normal in volume, and normal in production. Mood described as down. Affect remained dysphoric. Thought process was linear and organized. Thought content: patient denies active homicidal ideation and endorsed suicidal ideation with acknowledgment of desire to after overdosing. Patient denied any auditory or visual hallucinations. There was no evidence of delusional thinking. Attention, concentration, and memory appeared intact. Alert and oriented times three. Insight was impaired. Judgment was impaired. Impulse control was poor. Vitals/I&O/Wt Last Vital Signs Temp 98.3 F 11/18/24 15:54 Pulse 128 H 11/18/24 15:54 Resp 16 11/18/24 15:54 BP 128/87 11/18/24 15:54 Pulse Ox 97 11/18/24 15:54 O2 Del Method Room Air 11/18/24 15:54 11/18/24 11/18/24 11/18/24 06:59 14:59 22:59 Intake Total 1029.639 / 6031.485 1245 / 1245 Output Total 1999 Balance 1029.639 / 3581.485 -755 / -755 Weight last 48 hrs Weight 97.522 kg Weight 97.522 kg Data NPU 11/18/24 05:29 11/18/24 05:29 A&P Assessment and plan (1) Drug overdose: (2) Bipolar disorder with depression: Hold bupropion and BuSpar for now (3) Borderline personality disorder: Unclear diagnosis (4) Major depressive disorder: (5) Serotonin syndrome: (6) Suicide attempt: (7) Panic attacks: (8) History of OCD (obsessive compulsive disorder): (9) Suicidal ideations: (10) PTSD (post-traumatic stress disorder): Plan 24-year-old white male extensive history of multiple inpatient hospitalizations with borderline personality traits, dysthymia, extremely poor coping skills and signficant attention seeking behavior who presents once again with dangerous potentially lethal overdose requesting intermediate placement. 1. Encourage individual, group and milieu therapy. 2. Recommend sober living treatment at the highest level of care to which the patient is willing to commit. 3. Continue q-15 minute checks for safety 4. Will simplify medication regimen, these medications have been unhelpful and patient requires more intense psychotherapy possibly in superintendent container terminal facility. 5. Hold effexor and buspar. PDMP PDMP Reviewed: Not Reviewed Involuntary Hold Information Hold Status: Legal Status: 96 Hour Hold 96 Hour Hold: 96 Hour Involuntary Admission: Yes Other Hold: Hold End Date: 07/01/24 Attestations NPU Medical Necessity Statement*: Inpatient psychiatric hospitalization is medically necessary and the clinically appropriate intervention at this time. We will monitor medications and make changes as indicated. The patient's likely length of stay 5-7 days once stabilized on medical unit. Coding Level of Care Code Acute Code for g Fwd Diagnoses Drug overdose T50.902A Encounter type: initial encounter Injury intent: intentional self-harm Bipolar disorder with depression F31.9 Borderline personality disorder F60.3 Major depressive disorder F32.9 Serotonin syndrome G90.81 Suicide attempt T14.91XA Panic attacks F41.0 History of OCD (obsessive compulsive disorder) Z86.59 Suicidal ideations R45.851 PTSD (post-traumatic stress disorder) F43.10
[2024-11-18] MEDS: hyDROXYzine 25 mg Capsule 50 MG PO (20:52)
[2024-11-18] MEDS: trazodone 50 mg Tablet PO (20:52)
[2024-11-19 04:00] VITALS: BP 123/76; PULSE 75; RESP 17; TEMP 36.6; O2SAT 96
[2024-11-19] MEDS: naltrexone hcl 50 mg Tablet PO (08:31)
[2024-11-19] MEDS: divalproex DR 500 mg Tablet PO (08:32)
[2024-11-19] MEDS: LORazepam 2 mg/mL INJ 1 mL IM (09:50)
[2024-11-19] MEDS: haloperidol inj 5 mg/mL INJ 1 mL IM (09:50)
[2024-11-19] MEDS: diphenhydrAMINE 50 mg/mL SDV 1mL IM (09:51)
--- NOTE | 2024-11-19 09:52 | PC.NURSE ---
PR[facility] MED PT GIVEN 5MG HALDOL IM, 2MG ATIVAN IM, AND 50MG BENADRYL IM, FOR PT GETTING OUT OF CONTROL YELLING IN THE HALLWAY, WANTING TO SEE THE , AND WANTING TO BELOVED TO ANOTHER HOSPITAL, WILL CONTINUE TO MONITOR.
[2024-11-19 12:00] VITALS: RESP 16
--- NOTE | 2024-11-19 12:29 | PC.NURSE ---
PT IS RESTING AFTER RECEIVING A IM B52 THIS MORNING.RESPIRATIONS WERE OBTAINED AT 16. CHARGE NURSE NOTIFIED.
[2024-11-19] MEDS: nicotine 2 mg Gum BUCCAL (15:09)
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
[2024-11-19] MEDS: OLANZapine 5 mg ODT PO (18:14)
[2024-11-19 20:00] VITALS: BP 101/62; PULSE 86; RESP 17; TEMP 36.6; O2SAT 97
[2024-11-19] MEDS: hyDROXYzine 25 mg Capsule 50 MG PO (20:15)
[2024-11-19] MEDS: trazodone 50 mg Tablet PO (20:15)
[2024-11-20 04:00] VITALS: BP 115/69; PULSE 75; RESP 18; TEMP 36.5; O2SAT 99
[2024-11-20] MEDS: nicotine 2 mg Gum BUCCAL ×4 (05:47→18:21)
[2024-11-20] MEDS: divalproex DR 500 mg Tablet PO (08:01)
[2024-11-20] MEDS: naltrexone hcl 50 mg Tablet PO (08:01)
[2024-11-20] MEDS: OLANZapine 5 mg ODT PO ×2 (08:01→15:51)
[2024-11-20] MEDS: hyDROXYzine 25 mg Capsule 50 MG PO ×2 (08:33→18:14)
--- NOTE | 2024-11-20 09:26 | PC.NURSE ---
Pt states that he slept good last night. He rates his anxiety 8/10 and depression a 6/10. No reports of hallucinations. Denies SI/HI. Denies pain at this time. Pt is very anxious this morning and asking about his home medications. He understands that he OD on these meds, but he states that they did help him and is wondering what the cook chili plan is for himself. I spoke with Dr. Carey about pt increased anxiety today. I have already tried vistaril and zydis with no relief. Dr. Carey gave a v/o for Ativan 1 mg. Pt agrees to try this and Doc will talk with him about his relief when he rounds.
[2024-11-20] MEDS: LORazepam 1 mg Tablet PO (09:34)
[2024-11-20 12:00] VITALS: BP 128/79; PULSE 110; RESP 18; O2SAT 97
--- NOTE | 2024-11-20 16:57 | W.PM.NPUPNS ---
Subjective NPU Subjective: 24-year-old male with borderline personality disorder and depression admitted after an overdose on multiple medications. The patient had continued to report intense feelings of hopelessness. He had reported feeling guilty that he was here in the hospital and reported that he wanted to return home despite there being significant problems with managing the stress at home which ultimately led to his overdose. The patient had reported trouble with maintaining a job and living independently. He had reported that he needed to rest. He had continued to report that he would like to continue with therapy on a weekly basis. He had periods of increased agitation today and appeared to be more calm after receiving 1 mg of Ativan. He reported no side effects from the reduction in tapering of his medications. The patient had admitted that the Effexor, BuSpar, and Depakote had not been effective for helping with mood fluctuations. He did not endorse any clear history of peggy. He denied racing thoughts. He denied any psychotic symptoms. Mental Status Exam MSE Comments: This is a well-nourished, well-developed, white male, in hospital scrubs seen with poor grooming and good eye contact. There was no evidence of any abnormal involuntary motor movements, except for moderate psychomotor agitation. He was cooperative with exam. Speech was mostly normal in rate and normal in volume, and normal in production. Mood described as depressed. Affect remained restricted in range. Thought process was linear and organized. Thought content: patient denies active homicidal ideation and endorsed suicidal ideation with acknowledgment of desire to after overdosing. Patient denied any auditory or visual hallucinations. There was no evidence of delusional thinking. Attention, concentration, and memory appeared intact. Alert and oriented times three. Insight was impaired. Judgment was impaired. Impulse control was poor. Vitals/I&O/Wt Last Vital Signs Temp 97.7 F 11/20/24 04:00 Pulse 110 H 11/20/24 12:00 Resp 18 11/20/24 12:00 BP 128/79 11/20/24 12:00 Pulse Ox 97 11/20/24 12:00 O2 Del Method Room Air 11/20/24 04:00 Data NPU 11/18/24 05:29 11/18/24 05:29 A&P Assessment and plan (1) Drug overdose: (2) Bipolar disorder with depression: (3) Borderline personality disorder: Unclear diagnosis (4) Major depressive disorder: (5) Serotonin syndrome: (6) Suicide attempt: (7) Panic attacks: (8) History of OCD (obsessive compulsive disorder): (9) Suicidal ideations: (10) PTSD (post-traumatic stress disorder): Plan 24-year-old white male extensive history of multiple inpatient hospitalizations with borderline personality traits, dysthymia, extremely poor coping skills and signficant attention seeking behavior who presents once again with dangerous potentially lethal overdose requesting extermination inspector placement. 1. Encourage individual, group and milieu therapy. 2. Recommend sober living treatment at the highest level of care to which the patient is willing to commit. 3. Continue q-15 minute checks for safety 4. Will simplify medication regimen, these medications have been unhelpful and patient requires more intense psychotherapy possibly in extermination inspector facility. Patient requires case management services, intense DBT services. 5. Continue Naltrexone 50mg daily. Reduce Depakote to 500mg ER daily with plan for its discontinuation. Will discuss trial of an antidepressant for depression/anxiety while attempting to simplify his medication regimen. PDMP PDMP Reviewed: Not Reviewed Involuntary Hold Information Hold Status: Legal Status: 96 Hour Hold Date/Time Hold Expires: 11/22/24@1918 96 Hour Hold: 96 Hour Involuntary Admission: Yes Other Hold: Hold End Date: 07/01/24 Attestations NPU Medical Necessity Statement*: Inpatient psychiatric hospitalization is medically necessary and the clinically appropriate intervention at this time. We will monitor medications and make changes as indicated. The patient's likely length of stay 5-7 days once stabilized on medical unit. Coding Level of Care Code Acute Code for [facility] Fwd Diagnoses Drug overdose T50.902A Encounter type: initial encounter Injury intent: intentional self-harm Bipolar disorder with depression F31.9 Borderline personality disorder F60.3 Major depressive disorder F32.9 Serotonin syndrome G90.81 Suicide attempt T14.91XA Panic attacks F41.0 History of OCD (obsessive compulsive disorder) Z86.59 Suicidal ideations R45.851 PTSD (post-traumatic stress disorder) F43.10
[2024-11-20] MEDS: haloperidol 5 mg Tablet PO (19:12)
[2024-11-20 20:00] VITALS: BP 114/68; PULSE 92; RESP 18; TEMP 36.3; O2SAT 98
[2024-11-21] MEDS: trazodone 50 mg Tablet PO ×2 (01:54→20:11)
[2024-11-21] MEDS: hyDROXYzine 25 mg Capsule 50 MG PO ×2 (01:54→20:11)
[2024-11-21 04:00] VITALS: BP 118/77; PULSE 65; RESP 17; TEMP 36.4; O2SAT 97
[2024-11-21] MEDS: OLANZapine 5 mg ODT PO ×2 (07:39→17:24)
[2024-11-21] MEDS: nicotine 2 mg Gum BUCCAL ×4 (08:31→19:41)
[2024-11-21] MEDS: divalproex DR 500 mg Tablet PO ×2 (08:31→17:14)
[2024-11-21] MEDS: naltrexone hcl 50 mg Tablet PO (08:31)
[2024-11-21] MEDS: haloperidol 5 mg Tablet PO (09:15)
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
[2024-11-21] MEDS: LORazepam 1 mg Tablet PO (11:39)
--- NOTE | 2024-11-21 11:39 | PC.NURSE ---
Dr. Carey gave this nurse a verbal order to administer Ativan 1mg PO once to the pt. The pt took the medication w/out issue.
[2024-11-21 12:00] VITALS: BP 125/80; PULSE 125; RESP 18; O2SAT 96
[2024-11-21] MEDS: venlafaxine ER (24HR) 75 mg Capsule 225 MG PO (14:24)
[2024-11-21 19:38] VITALS: BP 112/76; PULSE 81; RESP 17; TEMP 36.7; O2SAT 99
[2024-11-21] MEDS: quetiapine 100 mg Tablet PO (20:11)
[2024-11-22 06:00] VITALS: BP 137/79; PULSE 76; RESP 17; TEMP 36.6; O2SAT 98
[2024-11-22] MEDS: venlafaxine ER (24HR) 75 mg Capsule 225 MG PO (07:23)
[2024-11-22] MEDS: nicotine 2 mg Gum BUCCAL ×2 (07:24→15:20)
[2024-11-22] MEDS: divalproex ER 500 mg Tablet (24H) 1000 MG PO (07:24)
[2024-11-22] MEDS: naltrexone hcl 50 mg Tablet PO (07:24)
[2024-11-22] MEDS: benztropine 1 mg Tablet PO (07:51)
[2024-11-22] MEDS: hyDROXYzine 25 mg Capsule 50 MG PO (08:28)
--- NOTE | 2024-11-22 08:54 | CT_ITS ---
WS: [id number] CT HEAD TECHNIQUE: Noncontrast CT of the head obtained from the skullbase to the vertex. CLINICAL INFORMATION: unwitnessed fall COMPARISON: 07/06/2024 DLP: 1162.[address] scans at [facility] use at least one of these dose optimization techniques: automated exposure control; mA and/or kV adjustment per patient size (includes targeted exams where dose is matched to clinical indication); or iterative reconstruction. FINDINGS: No evidence of intracranial hemorrhage or mass effect. Ventricular system and basal cisterns are patent. No extra-axial fluid collections. No evidence of mass or mass effect. Low-lying cerebellar tonsils unchanged. Paranasal sinuses and mastoid air cells are well aerated. .Normal visualized soft tissues. CT/CT head wo con* [id number] IMPRESSION: 1. No evidence of intracranial hemorrhage or mass effect. 2. No acute intracranial findings.
[2024-11-22] MEDS: acetaminophen 325 mg Tablet 650 MG PO ×2 (09:01→17:22)
[2024-11-22] MEDS: OLANZapine 5 mg ODT PO (10:01)
--- NOTE | 2024-11-22 10:03 | PC.NURSE ---
At around 0835 the pt had an unwitnessed fall near the nurses station. The pt stated I stretched my arms up and I got fuzzy and fell on my tailbone but I don't think I hit my head . Pt was sat on the bench near the nurses station and vitals were performed and are as follows: BP: 127/71 HR: 101 RR: 18 Temp: 97.5 and O2: 98% on RA. Pt was examined and had no visible injuries. Security reviewed footage and stated that the pt had looked wobbly and he tried to sit near the bench by the nurses station and fell on his tailbone and then just laid back on the ground. Dr. Carey and facility maintenance supervisor were notified. The pt was ordered a head CT w/o contrast w/ no acute findings noted on the report.
[2024-11-22] MEDS: ibuprofen 600 mg Tablet PO (10:21)
--- NOTE | 2024-11-22 10:47 | PC.NURSE ---
Per Dr. Carey, 1mg lorazapam PO Once one ordered for now.
[2024-11-22] MEDS: LORazepam 1 mg Tablet PO (10:51)
--- NOTE | 2024-11-22 10:53 | PC.NURSE ---
PRNs Administered vistaril 50mg PO for moderate anxiety. Within an hour, patient requesting a second PRN for increase in anxiety. Administered zyprexa 5mg ODT. Patient then went down to group. Patient frequently pacing the ibarra, wringing his hands. Verbalizes anxiety and appears anxious.
[2024-11-22 14:45] VITALS: BP 125/79; PULSE 59; RESP 18; TEMP 36.3; O2SAT 99
[2024-11-22] MEDS: haloperidol 5 mg Tablet PO (15:09)
--- NOTE | 2024-11-22 16:14 | P.NPUPN_ITS ---
Subjective NPU 2 Subjective: 24-year-old male with borderline persona lity disorder and depression admitted after an overdose on multiple medications. The patient had complained of being lightheaded and stated that he had fallen earlier today. CT head was negative. He had reported continued struggles with having panic attacks but reported relief with lorazepam. He had continued to report chronic feelings of abandonment and reported struggles with managing PTSD symptoms. He had reported improved sleep with no nightmares last night with the initiation of Seroquel. He had reported often feeling anxious about going to sleep. He had reported that he was hopeful about going home soon. He had reported that he did feel that it was necessary to potentially get some help with managing his coping skills. He had denied any history currently of self injury. He had reported having frequent episodes of depression. He had also reported having chronic problems with controlling worry. He had reported frequently feeling something bad was going to happen to him. He continued to report triggers for nightmares and flashbacks. Mental Status Exam 2 MSE Comments: This is a well-nourished, well-developed, white male, in hospital scrubs seen with poor grooming and good eye contact. There was no evidence of any abnormal involuntary motor movements, except for moderate psychomotor retardation. He was cooperative with exam. Speech was mostly normal in rate and normal in volume, and normal in production. Mood described as depressed. Affect was flat. Thought process was linear and organized. Thought content: patient denies active homicidal ideation and endorsed suicidal ideation with acknowledgment of desire to after overdosing. Patient denied any auditory or visual hallucinations. There was no evidence of delusional thinking. Attention, concentration, and memory appeared intact. Alert and oriented times three. Insight was impaired. Judgment was impaired. Impulse control was poor. Vitals/I&O/Wt Last Vital Signs Temp 97.4 F L 11/22/24 14:45 Pulse 59 L 11/22/24 14:45 Resp 18 11/22/24 14:45 BP 125/79 11/22/24 14:45 Pulse Ox 99 11/22/24 14:45 O2 Del Method Room Air 11/22/24 14:45 Data NPU 11/18/24 05:29 11/18/24 05:29 A&P Assessment and plan (1) Major depressive disorder: (2) PTSD (post-traumatic stress disorder): (3) Drug overdose: (4) Bipolar disorder with depression: (5) Borderline personality disorder: Unclear diagnosis (6) Serotonin syndrome: (7) Suicide attempt: (8) Panic attacks: (9) History of OCD (obsessive compulsive disorder): (10) Suicidal ideations: Plan 24-year-old white male extensive history of multiple inpatient hospitalizations with borderline personality traits, dysthymia, extremely poor coping skills and signficant attention seeking behavior who presents once again with dangerous potentially lethal overdose requesting terminal operations supervisor placement. 1. Encourage individual, group and milieu therapy. 2. Recommend sober living treatment at the highest level of care to which the patient is willing to commit. 3. Continue q-15 minute checks for safety 4. Will simplify medication regimen, these medications have been unhelpful and patient requires more intense psychotherapy possibly in terminal operations supervisor facility. Patient requires case management services, intense DBT services. 5. Continue Naltrexone 50mg daily. Continue Effexor xr initially at 225mg daily with plan to increase to Effexor xr 300mg daily. Hold buspar. Restart Depakote ER 1000mg in am to target aggression and impulsivity. Seroquel 100mg at night for PTSD symptoms. 6. Involuntary 21 day hold filed with hearing on 11/25/24. PDMP PDMP Reviewed: Not Reviewed Involuntary Hold Information 2 Hold Status: Legal Status: 96 Hour Hold Date/Time Hold Expires: 11/22/24@1918 96 Hour Hold: 96 Hour Involuntary Admission: Yes Other Hold: Hold End Date: 07/01/24 Attestations NPU 2 Medical Necessity Statement*: Inpatient psychiatric hospitalization is medically necessary and the clinically appropriate intervention at this time. We will monitor medications and make changes as indicated. The patient's likely length of stay 5-7 days once stabilized on medical unit. Coding Level of Care Code Acute Code for [facility] Fwd Diagnoses Major depressive disorder F32.9 PTSD (post-traumatic stress disorder) F43.10 Drug overdose T50.902A Encounter type: initial encounter Injury intent: intentional self-harm Bipolar disorder with depression F31.9 Borderline personality disorder F60.3 Serotonin syndrome G90.81 Suicide attempt T14.91XA Panic attacks F41.0 History of OCD (obsessive compulsive disorder) Z86.59 Suicidal ideations R45.851
[2024-11-22 20:25] VITALS: BP 122/81; PULSE 62; RESP 17; TEMP 36.4; O2SAT 96
[2024-11-22] MEDS: trazodone 50 mg Tablet PO (20:54)
[2024-11-22] MEDS: quetiapine 100 mg Tablet PO (20:54)
[2024-11-23] MEDS: hyDROXYzine 25 mg Capsule 50 MG PO ×3 (01:57→20:05)
[2024-11-23] MEDS: trazodone 50 mg Tablet PO ×2 (01:58→20:05)
[2024-11-23] MEDS: nicotine 2 mg Gum BUCCAL ×4 (02:00→20:05)
[2024-11-23 06:00] VITALS: BP 118/75; PULSE 97; RESP 18; TEMP 36.5; O2SAT 99
--- NOTE | 2024-11-23 07:46 | PC.NURSE ---
pt standing at nurses station with cup of coffee pt at that time started stumbling backwards until he his back came u against the wall at that time pt rolled to his left sliding down room 151 door as it opened up landing on his left hip and right elbow, pt did not appear to loose conciousness, did not hit his head, vital signs were taken they with in normal limit. pt states pain in right elbow and left thumb, doctor kareem notified, xrays ordered.
--- NOTE | 2024-11-23 07:58 | PC.NURSE ---
Witnessed Fall This food writer, DAMIR Bills, and GRACIE Vogel witnessed patient fall in front of the nurses' station at approximately 0738. Patient was seen stumbling backward from about the center of the hallway to the door and wall, where he was able to slide down to the floor. Patient spilt his coffee on the floor during this. Patient did not lose consciousness. Patient did not hit his head against the wall or floor. Patient reports right elbow pain and left thumb pain. Patient's VS quickly obtained and are as followed: 119/78, HR 89, RR 18. Patient alert and oriented times 4. Dr. Carey notified. process supervisor Melly notified. Director Of Midwifery/Staff Midwife Esther notified. Verbal orders from Dr. Carey for orthostatics and for XRay of right elbow and left hand. Patient does not appear distressed. Patient endorses mild to moderate anxiety. Denies static feeling in head that experienced yesterday prior to fall.
[2024-11-23 08:14] VITALS: BP 109/62; BP 117/71; BP 124/74; PULSE 75; PULSE 80; PULSE 87
--- NOTE | 2024-11-23 08:15 | XRR_ITS ---
PROCEDURE INFORMATION: Exam: XR Right Elbow Exam date and time: 11/23/2024 1:23 PM Age: 24 years old Clinical indication: Right; RT elbow pain post fall; Additional info: Witnessed fall, elbow pain, scrapes TECHNIQUE: Imaging protocol: Radiologic exam of the right elbow. Views: 3 or more views. COMPARISON: CR (UP EX, ) 11/11/2024 5:53 PM FINDINGS: Bones/joints: No evidence of fracture or subluxation. No evidence of joint effusion. Radiocapitellar alignment is maintained. Soft tissues: Grossly unremarkable. XR/XR elbow RT min 3V* 99616 IMPRESSION: 1. No evidence of fracture or subluxation.
--- NOTE | 2024-11-23 08:17 | XRR_ITS ---
PROCEDURE INFORMATION: Exam: XR Left Hand Exam date and time: 11/23/2024 1:23 PM Age: 24 years old Clinical indication: Left; Lt hand pain post fall; Additional info: Witnessed fall, left thumb pain TECHNIQUE: Imaging protocol: Radiologic exam of the left hand. Views: 3 or more views. COMPARISON: No relevant prior studies available. FINDINGS: Bones/joints: Subtle submillimeter flake like calcification along the ulnar aspect of the base of the thumb metacarpal, possibly projectional though raising the question of avulsive injury in the proper clinical setting. Otherwise no evidence of fracture or subluxation. Radiocarpal articulation and carpal rows are grossly intact. Soft tissues: Mild soft tissue edema. No radiopaque foreign body. XR/XR hand LT min 3V* 15001 IMPRESSION: 1. No convincing evidence of fracture or subluxation. There is a subtle submillimeter flake like calcification along the ulnar aspect of the base of the thumb metacarpal, possibly projectional though raising the question of avulsive injury in the proper clinical setting. Consider correlation with point tenderness and if warranted follow-up outpatient MRI for further detail.
[2024-11-23] MEDS: venlafaxine ER (24HR) 75 mg Capsule 225 MG PO (08:22)
[2024-11-23] MEDS: divalproex ER 500 mg Tablet (24H) 1000 MG PO (08:23)
[2024-11-23] MEDS: naltrexone hcl 50 mg Tablet PO (08:23)
--- NOTE | 2024-11-23 08:29 | PC.NURSE ---
Vistaril Vistaril 50mg PO administered for moderated anxiety. Patient states that he is too anxious to sit down and that he wants to sit down so that he doesn't have another fall today.
[2024-11-23] MEDS: acetaminophen 325 mg Tablet 650 MG PO (08:44)
[2024-11-23] MEDS: OLANZapine 5 mg ODT PO (09:26)
[2024-11-23] MEDS: ibuprofen 600 mg Tablet PO ×2 (09:26→20:05)
--- NOTE | 2024-11-23 09:54 | PC.NURSE ---
Patient at window, reports experiencing auditory hallucinations. States that he heard a little girl tell him hi. Patient says that he hears something similar earlier in the day. Patient says that he is unsure if he has experienced auditory hallucinations in the past, saying it is hard to tell Administered haldol 5mg PO for hallucinations. Dr. Carey notified.
[2024-11-23] MEDS: haloperidol 5 mg Tablet PO (09:56)
--- NOTE | 2024-11-23 10:12 | PC.NURSE ---
Fall risk assessment increased from moderate fall risk to high fall risk. This is due to the observation that patient appears to be forgetful of his limitations when he falls.
[2024-11-23] MEDS: nicotine 4 mg lozenge MUCOUS MEM ×2 (10:32→16:07)
--- NOTE | 2024-11-23 12:56 | P.NPUPN_ITS ---
Subjective NPU 2 Subjective: 24-year-old male with borderline persona lity disorder and depression admitted after an overdose on multiple medications. The patient had reported continued problems with anxiety and reported frequent flashbacks about various traumatic events in his life. He had reported that he had chronic problems as a child with staying on task and continued to report problems with being bored and having problems with sustaining attention. He had reported having previously been diagnosed with ADHD as a child and an adolescent but stated that he never took medications for this problem as his mother had been opposed to these medications. He had described having difficulties with frequent daydreaming and reported problems with concentration even in the absence of anxiety. He had reported feeling bored here. He had reported that he was motivated to consider psychotherapy. He had reported that he had been doing well with his medications until he had received information stating that his mother was threatening suicide. He had reported that he had poor impulse control and reported that his overdose prior to this most recent overdose had been nearly lethal in june of 2024. Mental Status Exam 2 MSE Comments: This is a well-nourished, well-developed, white male, in hospital scrubs seen with poor grooming and good eye contact. There was no evidence of any abnormal involuntary motor movements, except for moderate psychomotor retardation. He was hyperkinetic. He was cooperative with exam. Speech was mostly normal in rate and normal in volume, and normal in production. Mood described as depressed. Affect was flat. Thought process was linear and organized. Thought content: patient denies active homicidal ideation and endorsed no suicidal ideation with acknowledgment of desire to after overdosing recently Patient denied any auditory or visual hallucinations. There was no evidence of delusional thinking. Attention span was poor. Alert and oriented times three. Insight was impaired. Judgment was impaired. Impulse control was poor. Vitals/I&O/Wt Last Vital Signs Temp 97.7 F 11/23/24 06:00 Pulse 75 11/23/24 08:14 Resp 18 11/23/24 06:00 BP 109/62 11/23/24 08:14 Pulse Ox 99 11/23/24 06:00 O2 Del Method Room Air 11/22/24 14:45 11/22/24 11/23/24 11/23/24 22:59 06:59 14:59 Intake Total 980 / 980 Output Total 1999 Balance -1020 / -1020 Data NPU 05/05/25 05:29 11/18/24 05:29 A&P Assessment and plan (1) Major depressive disorder: (2) PTSD (post-traumatic stress disorder): (3) Drug overdose: (4) Bipolar disorder with depression: (5) Borderline personality disorder: Unclear diagnosis (6) Serotonin syndrome: (7) Suicide attempt: (8) Panic attacks: (9) History of OCD (obsessive compulsive disorder): (10) Suicidal ideations: Plan 24-year-old white male extensive history of multiple inpatient hospitalizations with borderline personality traits, dysthymia, extremely poor coping skills and signficant attention seeking behavior who presents once again with dangerous potentially lethal overdose requesting jail placement. 1. Encourage individual, group and milieu therapy. 2. Recommend sober living treatment at the highest level of care to which the patient is willing to commit. 3. Continue q-15 minute checks for safety 4. Will simplify medication regimen, these medications have been unhelpful and patient requires more intense psychotherapy possibly in jail facility. Patient requires case management services, intense DBT services. 5. Continue Naltrexone 50mg daily. Continue Effexor xr initially at 225mg daily with plan to increase to Effexor xr 300mg daily. Restart Depakote ER 1000mg in am to target aggression and impulsivity. Seroquel 100mg at night for PTSD symptoms. Add Ritalin 10mg bid (8, 1pm). 6. Involuntary 21 day hold filed with hearing on 11/25/24. PDMP PDMP Reviewed: Not Reviewed Involuntary Hold Information 2 Hold Status: Legal Status: 96 Hour Hold Date/Time Hold Expires: 11/22/24@1918 96 Hour Hold: 96 Hour Involuntary Admission: Yes Other Hold: Hold End Date: 07/01/24 Attestations NPU 2 Medical Necessity Statement*: Inpatient psychiatric hospitalization is medically necessary and the clinically appropriate intervention at this time. We will monitor medications and make changes as indicated. The patient's likely length of stay 5-7 days although if patient requires guardianship it will be much longer. Coding Level of Care Code Acute Code for [facility] Fwd Diagnoses Major depressive disorder F32.9 PTSD (post-traumatic stress disorder) F43.10 Drug overdose T50.902A Encounter type: initial encounter Injury intent: intentional self-harm Bipolar disorder with depression F31.9 Borderline personality disorder F60.3 Serotonin syndrome G90.81 Suicide attempt T14.91XA Panic attacks F41.0 History of OCD (obsessive compulsive disorder) Z86.59 Suicidal ideations R45.851
[2024-11-23] MEDS: methylphenidate 10 mg Tablet PO (13:41)
[2024-11-23 14:00] VITALS: BP 132/82; PULSE 79; RESP 17; TEMP 36.3; O2SAT 99
[2024-11-23 19:19] VITALS: BP 125/84; PULSE 78; RESP 18; TEMP 36.4; O2SAT 98
--- NOTE | 2024-11-23 19:30 | PC.NURSE ---
Unwitnessed Fall During shift change, this nurse and CALVIN Trimble were notified by DAMIR To that patient had fallen. Patient's VS were quickly obtained and are as follows: 97.5, HR 78, RR 18, 125/84, 98%. Patient's face appears sweaty. Patient says that he was standing at the window when he suddenly became light-headed. Patient then crumpled to the floor, landing on his left knee and falling backward. patient reports moderate pain. Knee is red. No open wounds. Patient denies hitting his head. Patient says that the onset of light-headedness was sudden. Dr. Carey notified. Watershed Engineer Michelle notified. Fauzia Keith RN notified. Floor not wet. Patient wearing grippy socks and fall-risk bracelet. Patient alert and oriented times 4. Patient did not lose consciousness. Blood glucose obtained by DAMIR, Katie is result.
[2024-11-23 19:53] LABS: Glucose Point of Care 83 mg/dL (70-110)
--- NOTE | 2024-11-23 19:53 | PC.NURSE ---
While receiving shift commander report; patient had reported to the off-going CHANDELIER MAKER that he had became light headed outside the nurses station and fell down onto his left knee. Upon assessment his Vital signs were all WNL (see chart). His left knee appeared to have a 3.5cm in diameter reddened area just below his patella and possibly very slight edema. Patient C/O mild discomfort (3-4/10) with ambulation. Patient is able to bend his knee without any added discomfort. He can ambulate freely with no noted added discomfort. Patient was given 600mg Motrin PO and an ice pack. He was instructed to rest, Ice and elevate his knee. The Nursing warehouse processor, NPU spooling supervisor and Dr. Carey were all notified; No additional orders were received. A fall huddle worksheet was completed by myself, and an incident report was completed by off going charge nurse Asha SIMPSON.
[2024-11-23] MEDS: quetiapine 100 mg Tablet PO (20:04)
[2024-11-24 06:00] VITALS: BP 106/65; PULSE 56; RESP 16; O2SAT 97
[2024-11-24] MEDS: nicotine 2 mg Gum BUCCAL ×3 (07:26→21:20)
[2024-11-24] MEDS: venlafaxine ER (24HR) 75 mg Capsule 225 MG PO (08:10)
[2024-11-24] MEDS: methylphenidate 10 mg Tablet PO ×2 (08:10→12:33)
[2024-11-24] MEDS: divalproex ER 500 mg Tablet (24H) 1000 MG PO (08:10)
[2024-11-24] MEDS: naltrexone hcl 50 mg Tablet PO (08:10)
[2024-11-24] MEDS: ibuprofen 600 mg Tablet PO (10:21)
[2024-11-24] MEDS: nicotine 4 mg lozenge MUCOUS MEM ×2 (12:35→14:44)
--- NOTE | 2024-11-24 12:39 | P.NPUPN_ITS ---
Subjective NPU 2 Subjective: 24-year-old male with borderline persona lity disorder and depression admitted after an overdose on multiple medications. The patient had reported some improved ability to manage frustration with the initiation of Ritalin. He had stated that it did initially made him tired but he stated that he felt like he was focusing better. He reported that it had been helpful for his thoughts being more organized and less scattered. He had reported adequate sleep but stated that he had awoken at 2 AM. He had not endorsed a nightmare. He had reported not feeling suicidal and did admit that his home environment would often be a source of stress for him. He said he would consider staying at another place if he had a chance to be independent eventually. Patient reports occasional feelings of hopelessness. Mental Status Exam 2 MSE Comments: This is a well-nourished, well-developed, white male, in hospital scrubs seen with poor grooming and good eye contact. There was no evidence of any abnormal involuntary motor movements, except for moderate psychomotor retardation. He was calmer today. He was cooperative with exam. Speech was mostly normal in rate and normal in volume, and normal in production. Mood described as better. Affect was still restricted. Thought process was linear and organized. Thought content: patient denies active homicidal ideation and endorsed no suicidal ideation currently. Patient denied any auditory or visual hallucinations. There was no evidence of delusional thinking. Attention span was poor. Alert and oriented times three. Insight was impaired. Judgment was impaired. Impulse control appeared slightly improved. Vitals/I&O/Wt Last Vital Signs Temp 97.5 F L 11/23/24 19:19 Pulse 56 L 11/24/24 06:00 Resp 16 11/24/24 06:00 BP 106/65 11/24/24 06:00 Pulse Ox 97 11/24/24 06:00 O2 Del Method Room Air 11/22/24 14:45 11/23/24 11/24/24 11/24/24 22:59 06:59 14:59 Intake Total 500 / 500 Output Total 1999 / 1999 Balance -1500 / -1500 Weight last 48 hrs Weight 96.887 kg Data NPU 11/18/24 05:29 11/18/24 05:29 A&P Assessment and plan (1) Major depressive disorder: (2) PTSD (post-traumatic stress disorder): (3) Drug overdose: (4) Bipolar disorder with depression: (5) Borderline personality disorder: Unclear diagnosis (6) Serotonin syndrome: (7) Suicide attempt: (8) Panic attacks: (9) History of OCD (obsessive compulsive disorder): (10) Suicidal ideations: Plan 24-year-old white male extensive history of multiple inpatient hospitalizations with borderline personality traits, dysthymia, extremely poor coping skills and signficant attention seeking behavior who presents once again with dangerous potentially lethal overdose requesting ferry terminal supervisor placement. 1. Encourage individual, group and milieu therapy. 2. Recommend sober living treatment at the highest level of care to which the patient is willing to commit. 3. Continue q-15 minute checks for safety 4. Will simplify medication regimen, these medications have been unhelpful and patient requires more intense psychotherapy possibly in snf facility. Patient requires case management services, intense DBT services. 5. Continue Naltrexone 50mg daily. Continue Effexor xr initially at 225mg daily with plan to increase to Effexor xr 300mg daily. Restart Depakote ER 1000mg in am to target aggression and impulsivity. Seroquel 100mg at night for PTSD symptoms. Add Ritalin 10mg bid (8, 1pm). 6. Involuntary 21 day hold filed with hearing on 11/25/24. PDMP PDMP Reviewed: Not Reviewed Involuntary Hold Information 2 Hold Status: Legal Status: 96 Hour Hold Date/Time Hold Expires: 11/22/24@1918 96 Hour Hold: 96 Hour Involuntary Admission: Yes Other Hold: Hold End Date: 07/01/24 Attestations NPU 2 Medical Necessity Statement*: Inpatient psychiatric hospitalization is medically necessary and the clinically appropriate intervention at this time. We will monitor medications and make changes as indicated. The patient's likely length of stay 5-7 days although if patient requires guardianship it will be much longer. Coding Level of Care Code Acute Code for [facility] Fwd Diagnoses Major depressive disorder F32.9 PTSD (post-traumatic stress disorder) F43.10 Drug overdose T50.902A Encounter type: initial encounter Injury intent: intentional self-harm Bipolar disorder with depression F31.9 Borderline personality disorder F60.3 Serotonin syndrome G90.81 Suicide attempt T14.91XA Panic attacks F41.0 History of OCD (obsessive compulsive disorder) Z86.59 Suicidal ideations R45.851
[2024-11-24] MEDS: acetaminophen 325 mg Tablet 650 MG PO (13:18)
[2024-11-24 14:00] VITALS: BP 128/75; PULSE 76; RESP 18; TEMP 36.4; O2SAT 98
[2024-11-24] MEDS: hyDROXYzine 25 mg Capsule 50 MG PO (15:51)
[2024-11-24] MEDS: OLANZapine 5 mg ODT PO (17:32)
[2024-11-24] MEDS: ziprasidone 20 mg/mL SDV IM (18:00)
[2024-11-24] MEDS: water for injection-sterile 10 ML (18:01)
--- NOTE | 2024-11-24 18:01 | PC.NURSE ---
At approx. 1450 pt had asked if he could have his ritalin increased to three times daily. I informed him it would be best to ask Dr. Carey about that tomorrow as it was too late in the day to add that extra dose on at the moment. Pt agreed with this plan. Pt had an increase in activity at about 1550 and stated that he didn't feel it was anxiety but rather his ritalin dose dropping off and he just couldn't focus as well anymore. He requested a vistaril to try and help with this. At approx 1630 we began having some minor issues with another pt. Pt then came to nurses station and requested to see the bathhouse attendant. This nurse asked him what he was needing. Pt stated that he was wanting to move to a different side of the unit, d/t this other pt having his behaviors and this same pt saying something to his mother when she came to visit. I attempted to get pt to tell me what was said to his mother so we could deal with the complaint. Pt stated that it didn't matter, no one was listening to him anyways that he was going to have to take his shirt off and act like a toddler too in order to get anyone to pay attention to him. Pt cont to escalate and went to his room and slammed the door. Myself and aids Jessie and Alanis went down to speak with pt. He began yelling about being moved, the other pt upsetting him and saying something to his mother. He was not specific in his story. He was informed that he couldn't be slamming doors. I offered pt another prn medication to help with his anger and anxiety. He declined. in security came down and spoke with pt for a while as well. Dinner was served and pt refused stated that it didn't matter because he was going to kill himself anyways. I came up and called Dr. Carey to see if he wanted us to put him closed to the nurses station and get a sitter or just close to us. Dr. Carey stated that close to the nurses station was enough and he would address the Ritalin increase tomorrow. I got off the phone with Dr. Carey and pt came to nurses station with his neck all scratched up. Stated that he used his allergy bracelet. @1725 milan superviosr was contacted to send us a 1:1 sitter. Went down to pt room and pt was allowing me to look at his neck. I moved him to the room closest to the nurses station and retrieved items to clean the scratches. At this time I also gave the pt a zydis. @1741 Dr. Carey was notified again of the incident with the bracelet. Dr. Carey agreed to the one to one sitter and gave a v/o for one time Geodon 20mg IM or PO let the pt choose how he would like it delivered. Pt chose IM. @1742 [facility] sr. strategic sourcing manager was notified. Injection was given at 1801 see MAR. Pt and I spoke for a little while to calm him down, I gave water and a cool cloth to wash his face. He called his mother as well. Pt has asked for food and snack. Is now resting in bed with eyes closed.
--- NOTE | 2024-11-24 19:41 | PC.NURSE ---
This patient has a 1:1 sitter. 15 minute rounding was taken off at 1920.
--- NOTE | 2024-11-24 19:42 | PC.NURSE ---
Patient has a 1:1 sitter. Sitter was discontined about 1919 on the computer.
[2024-11-24 19:59] VITALS: BP 129/74; PULSE 105; RESP 17; TEMP 36.7; O2SAT 97
[2024-11-24] MEDS: benztropine 1 mg Tablet PO (21:20)
[2024-11-24] MEDS: quetiapine 100 mg Tablet PO (21:20)
[2024-11-24] MEDS: trazodone 50 mg Tablet PO (21:20)
--- NOTE | 2024-11-25 06:42 | PC.NURSE ---
vs not collected per charge resp 16
[2024-11-25] MEDS: divalproex ER 500 mg Tablet (24H) 1000 MG PO (08:07)
[2024-11-25] MEDS: venlafaxine ER (24HR) 75 mg Capsule 225 MG PO (08:07)
[2024-11-25] MEDS: naltrexone hcl 50 mg Tablet PO (08:07)
[2024-11-25] MEDS: methylphenidate 10 mg Tablet PO ×3 (08:07→15:06)
[2024-11-25] MEDS: nicotine 21 mg Patch 1 PATCH TRANSDERMA (08:11)
[2024-11-25] MEDS: hyDROXYzine 25 mg Capsule 50 MG PO (10:00)
[2024-11-25] MEDS: OLANZapine 5 mg ODT PO (13:01)
[2024-11-25] MEDS: acetaminophen 325 mg Tablet 650 MG PO (13:35)
[2024-11-25 14:00] VITALS: BP 126/76; PULSE 79; RESP 17; TEMP 36.3; O2SAT 97
--- NOTE | 2024-11-25 14:15 | P.NPUDS_ITS ---
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 paperwork Coding Level of Care Code Acute Code for Chg Fwd Diagnoses Major depressive disorder F32.9 PTSD (post-traumatic stress disorder) F43.10 Attention-deficit hyperactivity disorder, unspecified type F90.9 Drug overdose T50.902A Encounter type: initial encounter Injury intent: intentional self-harm Borderline personality disorder F60.3 Serotonin syndrome G90.81 Suicide attempt T14.91XA Panic attacks F41.0 History of OCD (obsessive compulsive disorder) Z86.59 Suicidal ideations R45.851
[2024-11-25 14:42] VITALS: BP 126/76; PULSE 79; RESP 17; TEMP 36.3; O2SAT 97
== END 2024-11-25 15:20 | disposition home or self-care (01) | DRG 918 ==
LOC: ER 22:04 → ICU 22:56 → NP 11-18 15:38
PROVIDERS: Family Medicine; Admitting Provider Internal Medicine; Emergency Provider Student in an Organized Health Care Education/Training Program; Visit Provider Psychiatry & Neurology Psychiatry
DX: T43.592A Poisoning by other antipsychotics and neuroleptics, intentional self-harm, initial encounter (principal); T43.212A Poisoning by selective serotonin and norepinephrine reuptake inhibitors, intentional self-harm, initial encounter; F32.9 Major depressive disorder, single episode, unspecified; F43.10 Post-traumatic stress disorder, unspecified; F90.9 Attention-deficit hyperactivity disorder, unspecified type; F60.3 Borderline personality disorder; G90.81 Serotonin syndrome; F41.0 Panic disorder [episodic paroxysmal anxiety]; F42.9 Obsessive-compulsive disorder, unspecified; F17.210 Nicotine dependence, cigarettes, uncomplicated; F17.290 Nicotine dependence, other tobacco product, uncomplicated; F17.220 Nicotine dependence, chewing tobacco, uncomplicated
CPT/HCPCS: 36416; 70450; 73080; 73130; 80048; 80053; 80306; 80307; 81001; 82550; 82962; 83605; 83735; 83880; 84100; 85025; 86140; 93005; 96372; 96374; 96376; 97150; 97165; 99285; J1200; J1630; J2060; J2250; J2405; J3486; J7120; J9999

== ENCOUNTER 2024-11-30 20:19 | Emergency (ER) | payer MEDICAID, SELFPAY ==
[2024-10-31 12:58] VITALS: BP 124/79; BMI 30.4
[2024-11-30 20:25] VITALS: BP 148/97; PULSE 53; RESP 18; TEMP 36.8; O2SAT 97; BMI 31.0
--- NOTE | 2024-11-30 20:50 | ECG_ITS ---
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 Measurements Intervals [place] Rate: 54 P: 11 [place]: 146 QRS: 30 QRSD: 107 T: 13 QT: 378 QTc: 360 Interpretive Statements SINUS BRADYCARDIA Compared to ECG 11/17/2024 09:28:38 Sinus rhythm no longer present T-wave abnormality no longer present Electronically Signed On 12-01-2024 12:31:09 CDT by Yadira Alegria M.D. [id number]
--- NOTE | 2024-11-30 20:59 | PC.NURSE ---
spoke to poison control regarding possible propanolol OD Poison control stated symptoms to watch for includes bradycardia, hypotension, hypoglycemia, ASSEMBLY ASSOCIATE depression. recommended glucagon IVP and glucagon drip if needed. advised ED monitoring for 4 hours (until 1230 am). informed [facility] ED physician
[2024-11-30 22:32] VITALS: BP 144/102; PULSE 57; RESP 18; O2SAT 98
--- NOTE | 2024-12-01 00:09 | ECG_ITS ---
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 Measurements Intervals [place] Rate: 55 P: 19 [place]: 145 QRS: 64 QRSD: 106 T: 42 QT: 384 QTc: 369 Interpretive Statements SINUS BRADYCARDIA Compared to ECG 11/17/2024 09:28:38 Sinus rhythm no longer present T-wave abnormality no longer present Electronically Signed On 12-01-2024 12:29:53 CDT by Yadira Alegria M.D. [email or web address] [id number]
[2024-12-01 00:32] LABS: Glucose Point of Care 89 mg/dL (70-110)
--- NOTE | 2024-12-01 00:43 | ED_ITS ---
HPI - Overdose General: Chief Complaint: Overdose Stated Complaint: overdose Time Seen by Provider: 11/30/24 20:26 History of Present Illness: 24-year-old male patient with a history of generalized anxiety disorder, and overdose in the past. He was brought in by law enforcement, because there was a disturbance at the house. The patient states he was very distraught, anxious, and does not remember if he took extra propranolol or not. He denies suicidality or homicidality. He is asymptomatic at this point. Related Data Previous Rx's ?Medication ?Instructions ?Recorded hydroxyzine HCl 50 mg tablet 50 mg PO BID PRN anxiety #60 tabs 09/10/24 propranolol 20 mg tablet 20 mg PO BID PRN anxiety #60 tabs 09/10/24 naltrexone 50 mg tablet 50 mg PO DAILY #30 tabs 04/10 nicotine (polacrilex) 4 mg buccal 4 mg buccal Q1H PRN nicotine 11/15/24 lozenge (Nicorette) cravings #108 ea nicotine 21 mg/24 hr daily 1 patch transdermal DAILY # 28 ea 11/15/24 transdermal patch varenicline tartrate 1 mg tablet 1 mg PO BID #56 tabs 11/15/24 venlafaxine 150 mg 300 mg (2 x 150 mg) PO DAILY 30 11/15/24 capsule,extended release 24 hr days #60 caps divalproex 500 mg tablet,extended 1,000 mg (2 x 500 mg ) PO .AM 30 11/25/24 release 24 hr days #60 tabs quetiapine 150 mg tablet 150 mg PO BEDTIME 30 days #3 0 tabs 11/25/24 Allergies Allergy/AdvReac Type Severity Reaction Status Date / Time No Known Allergies Allergy Verified 11/15/24 10:05 [facility] ED PFS: Medical History (Updated 12/01/24 @ 00:44 by James Zamudio DO) Septic arthritis of knee Psychiatric care History of OCD (obsessive compulsive disorder) Depression Family History Other Cancer Hypertension Social History Smoking and tobacco/nicotine status: current every day tobacco/nicotine user cigarettes Packs smoked per day: 10 Years cigarettes smoked: 10, e-cigarettes E- Cigarette Details: e-cigarette and with nicotine E-cig/vape details: 10,000 puff last only a week and smokeless tobacco Smokeless tobacco user: chewing tobacco Smokeless tobacco details: from time to time Quit status (tobacco/nicotine): considering quitting Second hand smoke exposure: Yes Alcohol intake: never Substance/Drug Use: current Substance/Drug use frequency: daily Additional social history: Patient states he wants full code on 11/16/2024 Adopted: No Caregiver/support person: No Lives independently: Yes Household members: family Housing: House Marital status: Single Number of children: 0 Number of grandchildren: 0 Highest education level completed: Some College, No Degree service: No Current occupational status: other Details: filing for disability Pets and animals: Yes Pets & animals: cat(s) and dog(s) Leisure activites: music and other Leisure activities details: watching TV Sexually active: No Do you think of yourself as: Straight/Heterosexual Current gender identity: Male Patricia/Evangelical: Other Special patricia needs: No Agree to transfusion: Yes Physical Exam Const: COMMON NORMALS: no acute distress GENERAL APPEARANCE: cooperative; not ill appearing and not frail appearing HENMT: COMMON NORMALS: normocephalic, atraumatic and Normal external nose present HEAD & SCALP: normocephalic and atraumatic FACE & SINUS: normal facial exam and face symmetric NOSE: Normal external nose present Eye: COMMON NORMALS: Equal, round and reactive pupils present and EOMs intact bilaterally PUPIL: Yes Equal, round and reactive pupils present Neck/C-Spine: GENERAL: Yes trachea midline Chest: CHEST: Yes Symmetrical chest wall rise Resp: COMMON NORMALS: normal respiratory effort, No retractions, No use of accessory muscles and clear to auscultation bilaterally AUSCULTATION: clear to auscultation bilaterally Cardio: COMMON NORMALS: regular rate and regular rhythm RATE: regular rate RHYTHM: regular rhythm GI: COMMON NORMALS: Normal to inspection, nondistended, normoactive bowel sounds present Extremity: COMMON NORMALS: no pedal edema Neuro: TAI COMA SCALE: document GCS findings [place] coma scale eye opening: Spontaneous Tai coma scale verbal response: Orientated [place] coma scale motor response: Obey commands [place] coma scale total score: 15 SENSORY EXAM: Yes extremities (intact) Psych: COMMON NORMALS: speech normal SPEECH: Yes normal speech Skin: COMMON NORMALS: no rashes or lesions noted GENERAL SKIN EXAM: no rashes or lesions noted Course Vital Signs: Vital signs: Vital Signs Temperature 98.2 F 11/30/24 20:25 Pulse Rate 68 12/01/24 01:05 Respiratory Rate 21 H 12/01/24 01:04 Blood Pressure 136/82 12/01/24 01:05 Pulse Oximetry 98 12/01/24 01:05 Oxygen Delivery Me thod Room Air 11/30/24 22:32 MDM - Overdose Medical Decision Making Poison control was contacted. They would like us to hold the patient until 1230, as this is well after the peak of propranolol. He was placed on the monitor. He had mild bradycardia initially. He was never hypotensive. Heart rate is 68 on discharge. He remains asymptomatic. Unlikely there was an overdose of propranolol given history and story. The patient maintains that he is not suicidal or homicidal and did not wish to harm himself. He will be discharged for outpatient follow-up. He tells me he is supposed to go to a rehab facility within the next couple of weeks as an inpatient. Lab Data Laboratory Results POC Glucose 89 mg/dL (70-110) 12/01/24 00:25 No radiology studies performed this visit Discharge Plan Discharge Patient Disposition: Home Clinical Impression: JIMY (generalized anxiety disorder) Condition: Stable Prescriptions: No Action venlafaxine 150 mg capsule,extended release 24hr 300 mg PO DAILY 30 Days Qty: 60 11RF nicotine 21 mg/24 hr patch 24 hour 1 patch transdermal DAILY Qty: 28 2RF varenicline tartrate 1 mg tablet 1 mg PO BID Qty: 56 0RF nicotine (polacrilex) [Nicorette] 4 mg lozenge 4 mg buccal Q1H PRN (Reason: nicotine cravings) Qty: 108 2RF propranolol 20 mg tablet 20 mg PO BID PRN (Reason: anxiety) Qty: 60 2RF hydroxyzine HCl 50 mg tablet 50 mg PO BID PRN (Reason: anxiety) Qty: 60 2RF naltrexone 50 mg tablet 50 mg PO DAILY Qty: 30 11RF divalproex 500 mg Tablet Extended Release 24 Hr 1,000 mg PO .AM 30 Days Qty: 60 1RF quetiapine 150 mg tablet 150 mg PO BEDTIME 30 Days Qty: 30 1RF Discharge Orders: Discharge ED (Routine); Ordered 12/01/24 Ordered By: James Zamudio Patient Instructions: Opioid Safety, Pain Management Activity Restrictions/Additional Instructions: Return for any problems. Print Language: Ghanaian Coding Level of Care Code ED Pharmacy Billing Adjudicator for Nish Stapleton
[2024-12-01 01:04] VITALS: BP 136/82; PULSE 68; RESP 21; O2SAT 98
[2024-12-01 01:05] VITALS: BP 136/82; PULSE 68; O2SAT 98
== END 2024-12-01 00:58 | disposition home or self-care (01) ==
PROVIDERS: Emergency Provider Emergency Medicine
DX: F41.1 Generalized anxiety disorder (principal); R00.1 Bradycardia, unspecified; F17.210 Nicotine dependence, cigarettes, uncomplicated; F17.220 Nicotine dependence, chewing tobacco, uncomplicated; F17.290 Nicotine dependence, other tobacco product, uncomplicated; Z79.899 Other long term (current) drug therapy
CPT/HCPCS: 36416; 82962; 93005; 99283

== ENCOUNTER 2024-12-15 03:13 | Emergency (ER) | payer MEDICAID, SELFPAY ==
[2024-10-31 12:58] VITALS: BP 124/79; BMI 30.4
--- NOTE | 2024-12-15 03:31 | XRR_ITS ---
PROCEDURE INFORMATION: Exam: XR Chest Exam date and time: 12/15/2024 3:40 AM Age: 24 years old Clinical indication: Chest pressure; Prior surgery; Surgery date: 6+ months; Surgery type: Clavicular fixation; C/O chest pain TECHNIQUE: Imaging protocol: Radiologic exam of the chest. Views: 1 view. COMPARISON: CR (CHEST, ) 11/10/2024 3:29 AM FINDINGS: Lungs: No consolidation. Pleural spaces: No sizable pleural effusion or pneumothorax. Heart/Mediastinum: No cardiomegaly. Bones/joints: Status post ORIF of the left clavicle. No acute fracture. XR/XR chest 1V portable [id number] IMPRESSION: No acute intrathoracic findings.
[2024-12-15 03:33] VITALS: BP 134/88; PULSE 65; RESP 18; TEMP 36.9; O2SAT 100; BMI 29.5
--- NOTE | 2024-12-15 03:34 | ECG_ITS ---
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 Measurements Intervals [place] Rate: 69 P: 17 [place]: 160 QRS: 31 QRSD: 101 T: 6 QT: 357 QTc: 383 Interpretive Statements SINUS RHYTHM NONSPECIFIC T-WAVE ABNORMALITY Compared to ECG 12/01/2024 00:25:15 T-wave abnormality now present Sinus bradycardia no longer present Electronically Signed On 12-17-2024 11:40:59 CDT by Chang Russell M.D. [id number]
[2024-12-15 03:46] LABS: Basophils # 0.1 10^3/uL (0.0-0.1); Basophils % 0.6 %; Eosinophils # 0.3 10^3/uL (0.0-0.8); Eosinophils % 3.4 %; Hematocrit 42.9 % (37-53); Lymphocytes # 3.3 10^3/uL (0.8-4.8); Lymphocytes % 35.3 %; Mean Corpuscular HGB Conc 33.1 g/dL (30-55); Mean Corpuscular Hemoglobin 30.8 pg (27-33); Mean Corpuscular Volume 93.1 fl (82-101); Mean Platelet Volume 9.4 fL (7.4-10.4); Monocytes # 0.7 10^3/uL (0.2-0.9); Monocytes % 7.1 %; Neutrophils # 4.99 10^3/uL (1.8-7.7); Neutrophils % 53.5 %; Nucleated Red Blood Cells % 0 %; Platelet Count 243 10^3/cmm (157-399); Red Blood Count 4.61 10^6/uL (3.85-5.65); Red Cell Distribution Width 13.3 % (12.1-15.1); White Blood Count 9.33 10^3/uL (3.29-11.43)
[2024-12-15] MEDS: OLANZapine 10 mg ODT 20 MG PO (03:59)
[2024-12-15] MEDS: LORazepam 1 MG/0.5 ML injection 2 MG IM (04:00)
[2024-12-15 04:34] LABS: Acetaminophen < 5.0 ug/mL (10-30); Alanine Aminotransferase 17 U/L (0-41); Albumin Level 4.4 g/dL (3.5-5.2); Alkaline Phosphatase 68 U/L (40-130); Aspartate Amino Transferase 19 U/L (0-40); Blood Urea Nitrogen 8 mg/dL (6-20); Calcium 9.5 mg/dL (8.5-10.5); Carbon Dioxide 20 mmol/L (22-29); Creatinine Clr Calc Pharmacy 184.2748; Globulin 2.7 g/dL (1.3-4.6); Glucose 90 mg/dL (65-115); Salicylate < 0.3 mg/dL (3-10); Total Bilirubin 0.2 mg/dL (0.15-1.2); Total Protein 7.1 g/dL (6.6-8.7)
--- NOTE | 2024-12-15 04:36 | ED_ITS ---
HPI - Anxiety 2 General: Chief Complaint: Anxiety Stated Complaint: panic attack, cp Time Seen by Provider: 12/15/24 03:51 History of Present Illness: 24-year-old male patient well-known to [facility] emergency department service. He had an anxiety attack this morning he says at home. He is having chest discomfort, shortness of breath. He says he is much better currently, but his chest still hurts. He does not know what brought on his panic attack. He notes that his medication was changed recently, and he was placed on Ritalin. Related Data Previous Rx's ?Medication ?Instructions ?Recorded hydroxyzine HCl 50 mg tablet 50 mg PO BID PRN anxiety #60 tabs 09/10/24 propranolol 20 mg tablet 20 mg PO BID PRN anxiety #60 tabs 09/10/24 naltrexone 50 mg tablet 50 mg PO DAILY #30 tabs 04/0 04/10 venlafaxine 150 mg 300 mg (2 x 150 mg) PO DAILY 30 11/15/24 capsule,extended release 24 hr days #60 caps divalproex 500 mg tablet,extended 1,000 mg (2 x 500 mg ) PO .AM 30 11/25/24 release 24 hr days #60 tabs quetiapine 150 mg tablet 150 mg PO BEDTIME 30 days #3 0 tabs 11/25/24 Allergies Allergy/AdvReac Type Severity Reaction Status Date / Time No Known Allergies Allergy Verified 12/05/24 12:41 [facility] ED 2 [facility]: Medical History Septic arthritis of knee Psychiatric care History of OCD (obsessive compulsive disorder) Depression Family History Other Cancer Hypertension Social History Smoking and tobacco/nicotine status: current every day tobacco/nicotine user cigarettes Packs smoked per day: 10 Years cigarettes smoked: 10, e-cigarettes E- Cigarette Details: e-cigarette and with nicotine E-cig/vape details: 10,000 puff last only a week and smokeless tobacco Smokeless tobacco user: chewing tobacco Smokeless tobacco details: from time to time Quit status (tobacco/nicotine): considering quitting Second hand smoke exposure: Yes Alcohol intake: never Substance/Drug Use: current Substance/Drug use frequency: daily Additional social history: Patient states he wants full code on 11/16/2024 Adopted: No Caregiver/support person: No Lives independently: Yes Household members: family Housing: House Marital status: Single Number of children: 0 Number of grandchildren: 0 Highest education level completed: Some College, No Degree service: No Current occupational status: other Details: filing for disability Pets and animals: Yes Pets & animals: cat(s) and dog(s) Leisure activites: music and other Leisure activities details: watching TV Sexually active: No Do you think of yourself as: Straight/Heterosexual Current gender identity: Male Patricia/Episcopalian: Other Special patricia needs: No Agree to transfusion: Yes Physical Exam 2 Const: COMMON NORMALS: no acute distress GENERAL APPEARANCE: cooperative and anxious; not ill appearing and not frail appearing HENMT: COMMON NORMALS: normocephalic, atraumatic and Normal external nose present HEAD & SCALP: normocephalic and atraumatic FACE & SINUS: normal facial exam and face symmetric NOSE: Normal external nose present Eye: COMMON NORMALS: Equal, round and reactive pupils present and EOMs intact bilaterally PUPIL: Yes Equal, round and reactive pupils present Neck/C-Spine: GENERAL: Yes trachea midline Chest: CHEST: Yes Symmetrical chest wall rise Resp: COMMON NORMALS: normal respiratory effort, No retractions, No use of accessory muscles and clear to auscultation bilaterally AUSCULTATION: clear to auscultation bilaterally Cardio: COMMON NORMALS: regular rate and regular rhythm RATE: regular rate RHYTHM: regular rhythm GI: COMMON NORMALS: Normal to inspection, nondistended, normoactive bowel sounds present Extremity: COMMON NORMALS: no pedal edema Neuro: TAI COMA SCALE: document GCS findings [place] coma scale eye opening: Spontaneous Tai coma scale verbal response: Orientated [place] coma scale motor response: Obey commands Tai coma scale total score: 15 S ENSORY EXAM: Yes extremities (intact) Psych: COMMON NORMALS: speech normal SPEECH: Yes normal speech Skin: COMMON NORMALS: no rashes or lesions noted GENERAL SKIN EXAM: no rashes or lesions noted Course 2 Vital Signs: Vital signs: Vital Signs Temperature 98.4 F 12/15/24 03:33 Pulse Rate 65 12/15/24 03:33 Respiratory Rate 18 12/15/24 03:33 Blood Pressure 134/88 12/15/24 03:33 Pulse Oximetry 100 12/15/24 03:33 MDM - Anxiety Medical Decision Making Medically, the patient is stable. He is given Zyprexa, and Ativan for anxiety. His CBC is normal. His chest x-ray is normal. His EKG shows a sinus rhythm, no ectopy, no ST wave changes. He will be allowed discharge home, as he is not suicidal. Anxiety is improved Lab Data 12/15/24 03:41 12/15/24 03:41 Radiology Impressions Chest X-Ray 12/15/24 03:31 IMPRESSION: No acute intrathoracic findings. Laboratory Results WBC 9.33 10^3/uL (3.29-11.43) 12/15/24 03:41 RBC 4.61 10^6/uL (3.85-5.65) 12/15/24 03:41 Hgb 14.20 g/dL (11.27-16.99) 12/15/24 03:41 Hct 42.9 % (37-53) 12/15/24 03:41 MCV 93.1 fl (82-101) 12/15/24 03:41 MCH 30.8 pg (27-33) 12/15/24 03:41 MCHC 33.1 g/dL (30-55) 12/15/24 03:41 RDW 13.3 % (12.1-15.1) 12/15/24 03:41 Plt Count 243 10^3/cmm (157-399) 12/15/24 03:41 MPV 9.4 fL (7.4-10.4) 12/15/24 03:41 Neut % (Auto) 53.5 % 12/15/24 03:41 Lymph % (Auto) 35.3 % 12/15/24 03:41 Young % (Auto) 7.1 % 12/15/24 03:41 Eos % (Auto) 3.4 % 12/15/24 03:41 Baso % (Auto) 0.6 % 12/15/24 03:41 Neut # (Auto) 4.99 10^3/uL (1.8-7.7) 12/15/24 03:41 Lymph # (Auto) 3.3 10^3/uL (0.8-4.8) 12/15/24 03:41 Young # (Auto) 0.7 10^3/uL (0.2-0.9) 12/15/24 03:41 Eos # (Auto) 0.3 10^3/uL (0.0-0.8) 12/15/24 03:41 Baso # (Auto) 0.1 10^3/uL (0.0-0.1) 12/15/24 03:41 Nucleated RBC % (auto) 0 % 12/15/24 03:41 Nucleated RBCs # 0.0 /100WBC 12/15/24 03:41 Carbon Dioxide 20 mmol/L (22-29) L 12/15/24 03:41 BUN 8 mg/dL (6-20) 12/15/24 03:41 Creatinine 0.7 mg/dL (0.7-1.2) 12/15/24 03:41 GFR Calculation 141.0 mL/min (90-130) H 12/15/24 03:41 Glucose 90 mg/dL (65-115) 12/15/24 03:41 Calcium 9.5 mg/dL (8.5-10.5) 12/15/24 03:41 Total Bilirubin 0.2 mg/dL (0.15-1.2) 12/15/24 03:41 AST 19 U/L (0-40) 12/15/24 03:41 ALT 17 U/L (0-41) 12/15/24 03:41 Alkaline Phosphatase 68 U/L (40-130) 12/15/24 03:41 Total Protein 7.1 g/dL (6.6-8.7) 12/15/24 03:41 Albumin 4.4 g/dL (3.5-5.2) 12/15/24 03:41 Globulin 2.7 g/dL (1.3-4.6) 12/15/24 03:41 Salicylates < 0.3 mg/dL (3-10) L 12/15/24 03:41 Acetaminophen < 5.0 ug/mL (10-30) L 12/15/24 03:41 All radiology interpretation(s) finalized by discharge Discharge Plan Discharge Patient Disposition: Home Clinical Impression: Acute anxiety Condition: Stable Prescriptions: No Action venlafaxine 150 mg capsule,extended release 24hr 300 mg PO DAILY 30 Days Qty: 60 11RF propranolol 20 mg tablet 20 mg PO BID PRN (Reason: anxiety) Qty: 60 2RF hydroxyzine HCl 50 mg tablet 50 mg PO BID PRN (Reason: anxiety) Qty: 60 2RF naltrexone 50 mg tablet 50 mg PO DAILY Qty: 30 11RF divalproex 500 mg Tablet Extended Release 24 Hr 1,000 mg PO .AM 30 Days Qty: 60 1RF quetiapine 150 mg tablet 150 mg PO BEDTIME 30 Days Qty: 30 1RF Discharge Orders: Discharge ED (Routine); Ordered 12/15/24 Ordered By: James Zamudio Patient Instructions: Anxiety (ED), Opioid Safety, Pain Management Activity Restrictions/Additional Instructions: Return for any thoughts or wishes to harm yourself or anyone else. Print Language: Telugu Coding Level of Care Code ED Finishing Manager for Nish Stapleton
[2024-12-15 05:44] VITALS: BP 104/73; PULSE 57; RESP 17; O2SAT 98
[2024-12-15 05:49] LABS: Chloride 104 mmol/L (98-107); Osmolality Calculated 284 mOsm/kg (285-295); Sodium 138 mmol/L (136-145)
== END 2024-12-15 05:49 | disposition home or self-care (01) ==
PROVIDERS: Emergency Provider Emergency Medicine
DX: F41.8 Other specified anxiety disorders (principal); F17.210 Nicotine dependence, cigarettes, uncomplicated; F17.290 Nicotine dependence, other tobacco product, uncomplicated
CPT/HCPCS: 36415; 71045; 80053; 80307; 85025; 93005; 96372; 99285; J2060; J9999

== ENCOUNTER 2024-12-21 01:09 | Inpatient (IN) | payer MEDICAID, SELFPAY ==
[2024-10-31 12:58] VITALS: BP 124/79; BMI 30.4
[2024-12-21 01:15] VITALS: BMI 29.5
--- NOTE | 2024-12-21 01:24 | ECG_ITS ---
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
--- NOTE | 2024-12-21 01:24 | XRR_ITS ---
PROCEDURE INFORMATION: Exam: XR Chest Exam date and time: 12/21/2024 1:32 AM Age: 24 years old Clinical indication: Other: Medical clearance; Prior surgery; Surgery date: 6+ months; Surgery type: Clavicular fixation TECHNIQUE: Imaging protocol: Radiologic exam of the chest. Views: 1 view. COMPARISON: CR (CHEST, ) 12/15/2024 3:40 AM FINDINGS: Lungs: Clear, symmetrically inflated lungs. Pleural spaces: No pleural effusion. No pneumothorax. Heart/Mediastinum: Cardiac silhouette is normal in size for technique. Bones/joints: Prior left clavicular reconstruction with plate and screw fixation. No acute bony abnormality. XR/XR chest 1V portable [id number] IMPRESSION: No acute cardiopulmonary abnormality.
--- NOTE | 2024-12-21 01:24 | W.ED.PSYCHS ---
HPI - Psych General: Chief Complaint: Psychiatric Symptoms Stated Complaint: SI from panic attacks Time Seen by Provider: 12/21/24 01:15 History of Present Illness: Patient comes in with anxiety and suicidal ideation. States that he has been dealing with this for a long time. States that he attempted suicide 7 months ago by overdosing on Seroquel. States that he feels like he is getting suicidal again. He denies suicidal ideation at this time. He states that it is crossed his mind but he does not have a plan. Denies alcohol use. Does endorse marijuana. Patient is requesting that we not admitting him here but that he be transferred to another psych facility. Will check labs, consult psych, and reassess. Associated symptoms: Reports depression Related Data Previous Rx's ?Medication ?Instructions ?Recorded hydroxyzine HCl 50 mg tablet 50 mg PO BID PRN anxiety #60 tabs 09/10/24 propranolol 20 mg tablet 20 mg PO BID PRN anxiety #60 tabs 09/10/24 naltrexone 50 mg tablet 50 mg PO DAILY #30 tabs 10/23/24 venlafaxine 150 mg 300 mg (2 x 150 mg) PO DAILY 30 11/15/24 capsule,extended release 24 hr days #60 caps divalproex 500 mg tablet,extended 1,000 mg (2 x 500 mg) PO .AM 30 11/25/24 release 24 hr days #60 tabs quetiapine 150 mg tablet 150 mg PO BEDTIME 30 days #30 tabs 11/25/24 Allergies Allergy/AdvReac Type Severity Reaction Status Date / Time No Known Allergies Allergy Verified 12/05/24 12:41 Review of Systems Psych: Reports: anxiety and depression [facility] PFSH: Medical History Septic arthritis of knee Psychiatric care History of OCD (obsessive compulsive disorder) Depression Family History Other Cancer Hypertension Social History Smoking and tobacco/nicotine status: current every day tobacco/nicotine user cigarettes Packs smoked per day: 10 Years cigarettes smoked: 10, e-cigarettes E-Cigarette Details: e-cigarette and with nicotine E-cig/vape details: 10,000 puff last only a week and smokeless tobacco Smokeless tobacco user: chewing tobacco Smokeless tobacco details: from time to time Quit status (tobacco/nicotine): considering quitting Second hand smoke exposure: Yes Alcohol intake: never Substance/Drug Use: current Substance/Drug use frequency: daily Additional social history: Patient states he wants full code on 11/16/2024 Adopted: No Caregiver/support person: No Lives independently: Yes Household members: family Housing: House Marital status: Single Number of children: 0 Number of grandchildren: 0 Highest education level completed: Some College, No Degree service: No Current occupational status: other Details: filing for disability Pets and animals: Yes Pets & animals: cat(s) and dog(s) Leisure activites: music and other Leisure activities details: watching TV Sexually active: No Do you think of yourself as: Straight/Heterosexual Current gender identity: Male Patricia/Taoist: Other Special patricia needs: No Agree to transfusion: Yes Physical Exam Const: COMMON NORMALS: no acute distress, patient oriented x3, healthy appearing and alert HENMT: COMMON NORMALS: normocephalic and atraumatic HEAD & SCALP: normocephalic and atraumatic Eye: COMMON NORMALS: Equal, round and reactive pupils present and EOMs intact bilaterally PUPIL: Yes Equal, round and reactive pupils present Neck/C-Spine: COMMON NORMALS: full ROM and supple Resp: COMMON NORMALS: normal respiratory effort, No retractions and No use of accessory muscles Cardio: COMMON NORMALS: regular rate and regular rhythm RATE: regular rate RHYTHM: regular rhythm Extremity: COMMON NORMALS: normal to inspection and full ROM Neuro: COMMON NORMALS: patient oriented x3 SENSORIUM/ORIENTATION: Yes alert Psych: COMMON NORMALS: mental status grossly normal and cooperative Skin: COMMON NORMALS: no rashes or lesions noted and no wounds GENERAL SKIN EXAM: no rashes or lesions noted Course Vital Signs: Vital signs: Vital Signs Temperature 98.6 F 12/21/24 01:30 Pulse Rate 97 12/21/24 01:30 Respiratory Rate 18 12/21/24 01:30 Blood Pressure 163/105 12/21/24 01:30 Pulse Oximetry 97 12/21/24 01:30 Oxygen Delivery Me thod Room Air 12/21/24 01:30 MDM - Psych Medical Decision Making The patient continued to be agitated and anxious after the Atarax. We gave him 2 mg of Haldol IM and he is much better at this time. I talked with him about his test results. I also discussed the case with Dr. Bowie with psychiatry who was agreed to admit the patient for further workup and treatment of his suicidal ideation/depression. Lab Data 12/21/24 01:30 12/21/24 01:30 Radiology Impressions Chest X-Ray 12/21/24 01:24 IMPRESSION: No acute cardiopulmonary abnormality. Laboratory Results WBC 10.51 10^3/uL (3.29-11.43) 12/21/24 01:30 RBC 4.79 10^6/uL (3.85-5.65) 12/21/24 01:30 Hgb 14.90 g/dL (11.27-16.99) 12/21/24 01:30 Hct 43.7 % (37-53) 12/21/24 01:30 MCV 91.2 fl (82-101) 12/21/24 01:30 MCH 31.1 pg (27-33) 12/21/24 01:30 MCHC 34.1 g/dL (30-55) 12/21/24 01:30 RDW 13.0 % (12.1-15.1) 12/21/24 01:30 Plt Count 292 10^3/cmm (157-399) 12/21/24 01:30 MPV 9.0 fL (7.4-10.4) 12/21/24 01:30 Neut % (Auto) 61.2 % 12/21/24 01:30 Lymph % (Auto) 26.1 % 12/21/24 01:30 Madison % (Auto) 8.3 % 12/21/24 01:30 Eos % (Auto) 3.6 % 12/21/24 01:30 Baso % (Auto) 0.4 % 12/21/24 01:30 Neut # (Auto) 6.44 10^3/uL (1.8-7.7) 12/21/24 01:30 Lymph # (Auto) 2.7 10^3/uL (0.8-4.8) 12/21/24 01:30 Madison # (Auto) 0.9 10^3/uL (0.2-0.9) 12/21/24 01:30 Eos # (Auto) 0.4 10^3/uL (0.0-0.8) 12/21/24 01:30 Baso # (Auto) 0.0 10^3/uL (0.0-0.1) 12/21/24 01:30 Nucleated RBC % (auto) 0 % 12/21/24 01:30 Nucleated RBCs # 0.0 /100WBC 12/21/24 01:30 Sodium 141 mmol/L (136-145) 12/21/24 01:30 Potassium 4.0 mmol/L (3.5-5.1) 12/21/24 01:30 Chloride 107 mmol/L (98-107) 12/21/24 01:30 Carbon Dioxide 21 mmol/L (22-29) L 12/21/24 01:30 Anion Gap 17.0 (5-19) 12/21/24 01:30 BUN 14 mg/dL (6-20) 12/21/24 01:30 Creatinine 0.7 mg/dL (0.7-1.2) 12/21/24 01:30 GFR Calculation 141.0 mL/min (90-130) H 12/21/24 01:30 Glucose 114 mg/dL (65-115) 12/21/24 01:30 Calculated Osmolality 293 mOsm/kg (285-295) 12/21/24 01:30 Calcium 9.5 mg/dL (8.5-10.5) 12/21/24 01:30 Total Bilirubin 0.2 mg/dL (0.15-1.2) 12/21/24 01:30 AST 23 U/L (0-40) 12/21/24 01:30 ALT 31 U/L (0-41) 12/21/24 01:30 Alkaline Phosphatase 81 U/L (40-130) 12/21/24 01:30 Total Protein 7.5 g/dL (6.6-8.7) 12/21/24 01:30 Albumin 4.6 g/dL (3.5-5.2) 12/21/24 01:30 Globulin 2.9 g/dL (1.3-4.6) 12/21/24 01:30 Urine Color Yellow (Yellow) 12/21/24 01:35 Urine Appearance Clear (CLEAR) 12/21/24 01:35 Urine pH 5.0 (5-7) 12/21/24 01:35 Ur Specific Tarpley 1.036 (1.005-1.030) H 12/21/24 01:35 Urine Protein Negative (Negative) 12/21/24 01:35 Urine Glucose (UA) Negative (Normal) 12/21/24 01:35 Urine Ketones Negative (Negative) 12/21/24 01:35 Urine Blood Negative (Negative) 12/21/24 01:35 Urine Nitrate Negative (Negative) 12/21/24 01:35 Urine Bilirubin Negative (Negative) 12/21/24 01:35 Urine Urobilinogen 1.0 mg/dL (Negative) 12/21/24 01:35 Ur Leukocyte Esterase Negative (Negative) 12/21/24 01:35 Urine RBC 0-2 /hpf (0-2) 12/21/24 01:35 Urine WBC 0-5 /hpf (0-5) 12/21/24 01:35 Ur Squamous Epith Cells 0-5 /hpf (0-5) 12/21/24 01:35 Amorphous Sediment Not Reportable 12/21/24 01:35 Urine Bacteria None seen /hpf (NONE) 12/21/24 01:35 Hyaline Casts 1.65 /lpf 12/21/24 01:35 Salicylates < 0.3 mg/dL (3-10) L 12/21/24 01:30 Urine Opiates Screen Negative ng/mL (Negative) 12/21/24 01:35 Acetaminophen < 5.0 ug/mL (10-30) L 12/21/24 01:30 Ur Barbiturates Screen Negative ng/mL (Negative) 12/21/24 01:35 Ur Phencyclidine Scrn Negative ng/mL (Negative) 12/21/24 01:35 Ur Amphetamines Screen Negative ng/mL (Negative) 12/21/24 01:35 U Benzodiazepines Scrn Negative ng/mL (Negative) 12/21/24 01:35 Urine Cocaine Screen Negative ng/mL (Negative) 12/21/24 01:35 U Marijuana (THC) Screen Positive ng/mL (Negative) H 12/21/24 01:35 Ethyl Alcohol < 10 mg/dL (0-10) 12/21/24 01:30 All radiology interpretation(s) finalized by discharge Discharge Plan Discharge Patient Disposition: Admitted As Inpatient Clinical Impression: Suicidal ideation Condition: Stable Coding Level of Care Code ED Shower Enclosure Installer for Nish Stapleton
[2024-12-21 01:30] VITALS: BP 163/105; PULSE 97; RESP 18; TEMP 37; O2SAT 97
[2024-12-21 01:39] LABS: Basophils % 0.4 %; Eosinophils # 0.4 10^3/uL (0.0-0.8); Eosinophils % 3.6 %; Hematocrit 43.7 % (37-53); Lymphocytes # 2.7 10^3/uL (0.8-4.8); Lymphocytes % 26.1 %; Mean Corpuscular HGB Conc 34.1 g/dL (30-55); Mean Corpuscular Hemoglobin 31.1 pg (27-33); Mean Corpuscular Volume 91.2 fl (82-101); Monocytes # 0.9 10^3/uL (0.2-0.9); Monocytes % 8.3 %; Neutrophils # 6.44 10^3/uL (1.8-7.7); Neutrophils % 61.2 %; Nucleated Red Blood Cells % 0 %; Platelet Count 292 10^3/cmm (157-399); Red Blood Count 4.79 10^6/uL (3.85-5.65); White Blood Count 10.51 10^3/uL (3.29-11.43)
[2024-12-21 01:57] LABS: Bilirubin Urine Negative (Negative); Blood Urine Negative (Negative); Glucose Urine UA Negative (Normal); Ketones Urine Negative (Negative); Leukocyte Esterase Urine Negative (Negative); Nitrate Urine Negative (Negative); Protein Urine Negative (Negative); Urine Appearance Clear (CLEAR); Urine Color Yellow (Yellow)
[2024-12-21 01:58] LABS: Alanine Aminotransferase 31 U/L (0-41); Albumin Level 4.6 g/dL (3.5-5.2); Alkaline Phosphatase 81 U/L (40-130); Aspartate Amino Transferase 23 U/L (0-40); Blood Urea Nitrogen 14 mg/dL (6-20); Calcium 9.5 mg/dL (8.5-10.5); Carbon Dioxide 21 mmol/L (22-29); Chloride 107 mmol/L (98-107); Creatinine Clr Calc Pharmacy 184.2748; Globulin 2.9 g/dL (1.3-4.6); Glucose 114 mg/dL (65-115); Osmolality Calculated 293 mOsm/kg (285-295); Sodium 141 mmol/L (136-145); Total Bilirubin 0.2 mg/dL (0.15-1.2); Total Protein 7.5 g/dL (6.6-8.7)
[2024-12-21 01:59] LABS: Add Urine Microscopic? YES; Bacteria Urine None Seen /hpf; Hyaline Casts Urine 1.65 /lpf; RBC Urine 0-2 /hpf (0-2); Squamous Epithelial Cell Urine 0-5 /hpf (0-5); WBC Urine 0-5 /hpf (0-5)
[2024-12-21 02:00] LABS: Acetaminophen < 5.0 ug/mL (10-30); Alcohol Level < 10 mg/dL (0-10); Salicylate < 0.3 mg/dL (3-10)
[2024-12-21 02:00] LABS: Specific Gravity, Urine 1.036 (1.005-1.030)
[2024-12-21 02:07] LABS: Amphetamines Screen Urine Negative (Negative); Barbiturates Screen Urine Negative (Negative); Benzodiazepines Screen Urine Negative (Negative); Cocaine Screen Urine Negative (Negative); Opiate Screen Urine Negative (Negative); PCP Screen Urine Negative (Negative); THC Screen Urine Positive (Negative)
[2024-12-21] MEDS: hyDROXYzine 25 mg Capsule 50 MG PO (02:41)
[2024-12-21] MEDS: haloperidol inj 5 mg/mL INJ 1 mL 2 MG IM (03:09)
--- NOTE | 2024-12-21 06:45 | PC.NURSE ---
pt was read his 96 hour hold rights at this time. Security was present. pt had no needs at this time.
[2024-12-21 07:16] VITALS: PULSE 83; O2SAT 97
--- NOTE | 2024-12-21 10:00 | PC.PHAR ---
Pt unable to verify home medications. Last med rec completed at discharge on 12/15/24-verified as most current medication.[facility]
[2024-12-21 18:41] VITALS: BP 126/77; PULSE 88; RESP 18; O2SAT 98
--- NOTE | 2024-12-21 19:15 | PC.NURSE ---
patient is quite anxious, talking loudly and upset about being in ED for the length of time he has been. Informed him we has asked for medication and waiting for Dr to order something. patient verbalized understanding.
[2024-12-21 20:00] VITALS: BP 134/82; PULSE 92; RESP 18; TEMP 36.8; O2SAT 99
[2024-12-21] MEDS: hyDROXYzine 25 mg Capsule PO (20:08)
[2024-12-21] MEDS: LORazepam 0.5 mg Tablet PO (20:17)
--- NOTE | 2024-12-21 20:30 | PC.NURSE ---
patients agitation continues. He is crying stating the Atarax does not work, he feels isolated, his phone is and he hasn't been allowed to call his parents. Dr Hong notified of patients increased agitation and new order received. Security in room with myself and patient. He informed patient he would make sure his phone got charged so he can call his mom. Patient verbalized understanding and apologized saying he didn't want to cause trouble he was just struggling right now.
--- NOTE | 2024-12-21 21:30 | PC.NURSE ---
patient calmer, talking on phone with his mother.
--- NOTE | 2024-12-22 08:45 | PC.NURSE ---
attempted to call report to [facility], per [facility] charge, bed is not available; awaiting plant ops to come fix bed issue.
--- OUTSIDE RECORDS SUMMARY | 2024-12-22 10:10 | XMS_ITS | Encounter Summary ---
Author Organization [facility] Address [address] [place] [address] Care Team Providers Care Licensed Clinical Social Worker Name Role Phone Unavailable Primary Care Provider Unavailabl e Encounter Details Date Type Department Care Team (Latest Contact Info) Description 10/31/2003 Outpatient Historical [facility] Medicine [address] [phone] Latanya Cody MD [address] [place] [phone] Routine child health exam (Primary Dx) Social History Tobacco Use Types Packs/Day Years Used Date Smoking Tobacco: Never Assessed Sex and Gender Information Value Date Recorded Sex Assigned at Not on file 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
--- OUTSIDE RECORDS SUMMARY | 2024-12-22 10:10 | XMS_ITS | Encounter Summary ---
Author Organization [facility] Address [address] [place] [address] Care Team Providers Care Manager Assisted Living Name Role Phone Unavailable Primary Care Provider Unavailabl e Encounter Details Date Type Department Care Team (Late st Contact Info) Description 02/28/2003 Outpatient Historical [facility] Medicine [address] [phone] Latanya Cody MD [address] [place] [phone] Social History Tobacco Use Types Packs/Day Years Used Date Smoking Tobacco: Never Assessed Sex and Gender Information Value Date Recorded Sex Assigned at Not on file 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
--- OUTSIDE RECORDS SUMMARY | 2024-12-22 10:10 | XMS_ITS | Encounter Summary ---
Author Organization [facility] Address [address] [place] [address] Care Team Providers Care Fondant Machine Operator Name Role Phone Unavailable Primary Care Provider Unavailabl e Encounter Details Date Type Department Care Team (Late st Contact Info) Description 2002 Outpatient Historical [facility] Medicine [address] [phone] Latanya Cody MD [address] [place] [phone] Social History Tobacco Use Types Packs/Day Years Used Date Smoking Tobacco: Never Assessed Sex and Gender Information Value Date Recorded Sex Assigned at Not on file 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
--- OUTSIDE RECORDS SUMMARY | 2024-12-22 10:10 | XMS_ITS | Encounter Summary ---
Author Organization [facility] Address [address] [place] [address] Care Team Providers Care Male Impersonator Name Role Phone Unavailable Primary Care Provider Unavailabl e Encounter Details Date Type Department Care Team (Latest Contact Info) Description 07/25/2003 Outpatient Historical [facility] Medicine [address] [phone] Latanya Cody MD [address] [place] [phone] PERFORAT TYMPAN MEMB NOS (Primary Dx) Social History Tobacco Use Types Packs/Day Years Used Date Smoking Tobacco: Never Assessed Sex and Gender Information Value Date Recorded Sex Assigned at Not on file 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
--- OUTSIDE RECORDS SUMMARY | 2024-12-22 10:10 | XMS_ITS | Clinical Summary ---
[facility] Organization [facility] Address [address] Delgado: [place] [address] Care Team Providers Care Cotton Wringer Name Role Phone Unavailable Primary Care Provider Unavailabl e Immunizations Immunization Administration Dates Next Due (M-M-R II/PRIORIX)(12 MO UP) MEASLES, MUMPS AND RUBELLA VIRUS VACCINE, 0.5 ML IM/SUBCUT 10/31/2003 (VARIVAX)(12 MOS UP)VARICELL A VIRUS VACCINE (PF) 0.5 ML, SUB CUT 10/31/2003 Dt Dtp Dtap Vaccine 04/30/2003,02/28/2003,2002 HIB, Unspecified Formulation 04/30/2003,02/29/20 03,2002 Hepatitis B Vaccine 04/30/2003,02/28/2003,2002 IPV/OPV 04/30/2003,02/28/2003,2002 Social History Tobacco Use Types Packs/Day Years Used Date Smoking Tobacco: Never Assessed Sex and Gender Information Value Date Recorded Sex Assigned at Not on file 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
--- OUTSIDE RECORDS SUMMARY | 2024-12-22 10:10 | XMS_ITS | Encounter Summary ---
Author Organization [facility] Address [address] [place] [address] Care Team Providers Care Obiee Lead Developer Name Role Phone Unavailable Primary Care Provider Unavailabl e Encounter Details Date Type Department Care Team (Latest Contact Info) Description 04/30/2003 Outpatient Historical [facility] Medicine [address] [phone] Latanya Cody MD [address] [place] [phone] Routine child health exam (Primary Dx) Social History Tobacco Use Types Packs/Day Years Used Date Smoking Tobacco: Never Assessed Sex and Gender Information Value Date Recorded Sex Assigned at Not on file 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
--- OUTSIDE RECORDS SUMMARY | 2024-12-22 10:10 | XMS_ITS | Encounter Summary ---
Author Organization [facility] Address [address] [place] [address] Care Team Providers Care Pretzel Cooker Name Role Phone Unavailable Primary Care Provider Unavailabl e Encounter Details Date Type Department Care Team (Latest Contact Info) Description 07/31/2003 Outpatient Historical [facility] Medicine [address] [phone] Latanya Cody MD [address] [place] [phone] Routine child health exam (Primary Dx) Social History Tobacco Use Types Packs/Day Years Used Date Smoking Tobacco: Never Assessed Sex and Gender Information Value Date Recorded Sex Assigned at Not on file 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
--- OUTSIDE RECORDS SUMMARY | 2024-12-22 10:10 | XMS_ITS | Encounter Summary ---
Author Organization [facility] Address [address] [place] [address] Care Team Providers Care Animal Killer Name Role Phone Unavailable Primary Care Provider Unavailabl e Encounter Details Date Type Department Care Team (Latest Contact Info) Description 2002 Outpatient Historical [facility] Medicine [address] [phone] Latanya Cody MD [address] [place] [phone] Routine child health exam (Primary Dx) Social History Tobacco Use Types Packs/Day Years Used Date Smoking Tobacco: Never Assessed Sex and Gender Information Value Date Recorded Sex Assigned at Not on file 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
--- OUTSIDE RECORDS SUMMARY | 2024-12-22 10:10 | XMS_ITS | Encounter Summary ---
Author Organization [facility] Address [address] [place] [address] Care Team Providers Care X Ray Technician Name Role Phone Unavailable Primary Care Provider Unavailabl e Encounter Details Date Type Department Care Team (Latest Contact Info) Description 2002 Outpatient Historical [facility] Medicine [address] [phone] Latanya Cody MD [address] [place] [phone] Routine child health exam (Primary Dx) Social History Tobacco Use Types Packs/Day Years Used Date Smoking Tobacco: Never Assessed Sex and Gender Information Value Date Recorded Sex Assigned at Not on file 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
--- NOTE | 2024-12-22 10:15 | PC.NURSE ---
this nurse updated pt on admission to [facility]. pt getting agitated, states he did not want to be admitted here and spoke to house worker general on arrival about situation. this nurse educated on attempt to transfer pt and was unsuccessful at finding placement, available bed opened on [facility] unit. pt states he feels psych physicians do not care at [facility] and wants to be transferred. this nurse explained situation to house worker general; Reference Data Expert spoke with patient and told nurse to call report. pt was transported to [facility] by and security
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
[2024-12-22] MEDS: LORazepam 2 mg/mL INJ 1 mL (11:30)
[2024-12-22] MEDS: diphenhydrAMINE 50 mg/mL SDV 1mL (11:30)
[2024-12-22] MEDS: haloperidol inj 5 mg/mL INJ 1 mL (11:30)
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
[2024-12-22] MEDS: hyDROXYzine 25 mg Capsule 50 MG PO ×2 (13:10→21:28)
[2024-12-22] MEDS: venlafaxine ER (24HR) 150 mg Capsule 300 MG PO (13:10)
[2024-12-22] MEDS: divalproex ER 500 mg Tablet (24H) 1000 MG PO (13:11)
--- NOTE | 2024-12-22 13:15 | PC.NURSE ---
Verbal order from Dr. Carey to increase Seroquel 200mg PO @ HS, and to give one dose of Depakote 1000mg PO now, and Effexor 300mg PO now. Signee gave the Effexor, Depakote and Naltrexone now per Dr. Carey.
[2024-12-22 14:00] VITALS: BP 101/54; PULSE 76; RESP 18; TEMP 36.6; O2SAT 96
[2024-12-22] MEDS: nicotine 2 mg Gum BUCCAL (19:41)
[2024-12-22 19:44] VITALS: BP 118/85; PULSE 113; RESP 18; TEMP 36.6; O2SAT 99
[2024-12-22] MEDS: quetiapine 100 mg Tablet 200 MG PO (21:28)
[2024-12-22] MEDS: trazodone 50 mg Tablet PO (21:28)
[2024-12-23 06:00] VITALS: BP 117/82; PULSE 91; RESP 16; TEMP 36.4; O2SAT 99
[2024-12-23] MEDS: naltrexone hcl 50 mg Tablet PO (07:44)
[2024-12-23] MEDS: venlafaxine ER (24HR) 150 mg Capsule 300 MG PO (07:44)
[2024-12-23] MEDS: divalproex ER 500 mg Tablet (24H) 1000 MG PO (07:44)
[2024-12-23] MEDS: OLANZapine 5 mg ODT PO (08:51)
[2024-12-23] MEDS: nicotine 4 mg lozenge MUCOUS MEM ×4 (08:56→15:24)
--- NOTE | 2024-12-23 09:21 | PC.NURSE ---
Pt states I slept He rates his anxiety a 9/10 and depression 4/10. He is SI with no plan. No reports of HI or hallucinations. No pain is reported. He is very agitated and short during his assessment.
[2024-12-23] MEDS: LORazepam 1 mg Tablet PO (10:04)
[2024-12-23] MEDS: CLONazepam 0.5 mg Tablet PO ×2 (13:41→17:28)
[2024-12-23 14:00] VITALS: BP 119/78; PULSE 120; RESP 18; TEMP 36.7; O2SAT 98
[2024-12-23] MEDS: acetaminophen 325 mg Tablet 650 MG PO (14:32)
[2024-12-23 16:11] VITALS: BP 127/81; PULSE 115
[2024-12-23] MEDS: ibuprofen 600 mg Tablet PO (16:29)
[2024-12-23] MEDS: nicotine 2 mg Gum BUCCAL (17:28)
--- NOTE | 2024-12-23 17:52 | W.PM.NPUPNS ---
Subjective NPU Subjective: 24-year-old male with borderline personality disorder and depression admitted with increased anxiety and continued thoughts of suicide. The patient had reported having acute bouts of anxiety. He reports that he had reexperiencing phenomenon from past trauma and reported having periods of chest pain and shortness of breath. He was given Ativan which appeared to relieve some of his symptoms for approximately an hour. He had endorsed continued problems with managing his feelings of hopelessness. He had reported that he often goes through intense periods of depression and reports being unable to manage his stress in the immediate moment. There had been no further episodes of aggression. The CT scan of his head was negative. He had reported that his depression had been better with the Effexor but he continued to struggle with anxiety. He had stated that he was contemplating stopping his marijuana use as he states that its initial benefit of helping him with anxiety was no longer helping him. He had expressed hope about being placed in a facility where he could have intense dialectical behavioral therapy services. Mental Status Exam MSE Comments: This is a well-nourished, well-developed, white male, in hospital scrubs seen in room with adequate grooming and fleeting eye contact. There were abrashions on right side of forehead. There was no evidence of any abnormal involuntary motor movements, except for psychomotor retardation. He was cooperative with exam. Speech was mostly normal in rate and normal in volume, and normal in production. Mood described as anxious. Affect was restricted in range and mood congruent. Thought process was linear and organized. Thought content: patient denies active homicidal ideation and endorsed suicidal ideation with no plan at this time. Patient denied any auditory or visual hallucinations. There was no evidence of delusional thinking. Attention, concentration, and memory appeared intact. Alert and oriented times three. Insight was impaired. Judgment was impaired. Impulse control was poor. Vitals/I&O/Wt Last Vital Signs Temp 98.0 F 12/23/24 14:00 Pulse 115 H 12/23/24 16:11 Resp 18 12/23/24 14:00 BP 127/81 12/23/24 16:11 Pulse Ox 98 12/23/24 14:00 O2 Del Method Room Air 12/23/24 14:00 Data NPU 12/21/24 01:30 12/21/24 01:30 A&P Assessment and plan (1) Major depressive disorder: (2) Borderline personality disorder: Unclear diagnosis (3) Suicidal ideations: (4) PTSD (post-traumatic stress disorder): (5) Drug overdose: (6) Bipolar disorder with depression: (7) Suicide attempt: (8) Panic attacks: (9) History of OCD (obsessive compulsive disorder): Plan 24-year-old white male extensive history of multiple inpatient hospitalizations with borderline personality traits, dysthymia, extremely poor coping skills and signficant attention seeking behavior who presents once again with suicidal ideation. 1. Encourage individual, group and milieu therapy. 2. Recommend sober living treatment at the highest level of care to which the patient is willing to commit. 3. Continue q-15 minute checks for safety 4. Will simplify medication regimen, these medications have been unhelpful and patient requires more intense psychotherapy possibly in long term acute care registered nurse facility. Patient requires case management services, intense DBT services. 5. Continue Seroquel 200mg at night, continue depakote ER 1000mg in am, Naltrexone 50mg daily, Effexor xr 300mg daily and add Klonopin .5mg bid today to target anxiety. PDMP PDMP Reviewed: Not Reviewed Involuntary Hold Information Hold Status: Legal Status: 96 Hour Hold Date/Time Hold Expires: 12/27/2024 @ 0001 96 Hour Hold: 96 Hour Involuntary Admission: Yes Other Hold: Hold End Date: 07/01/24 Attestations NPU Medical Necessity Statement*: Inpatient psychiatric hospitalization is medically necessary and the clinically appropriate intervention at this time. The patient's likely length of stay 5-7 days. Coding Level of Care Code Acute Code for [facility] Diagnoses Major depressive disorder F32.9 Borderline personality disorder F60.3 Suicidal ideations R45.851 PTSD (post-traumatic stress disorder) F43.10 Drug overdose T50.902A Encounter type: initial encounter Injury intent: intentional self-harm Bipolar disorder with depression F31.9 Suicide attempt T14.91XA Panic attacks F41.0 History of OCD (obsessive compulsive disorder) Z86.59
[2024-12-23 19:13] VITALS: BP 119/76; PULSE 85; RESP 18; TEMP 36.6; O2SAT 98
[2024-12-23] MEDS: quetiapine 100 mg Tablet 200 MG PO (20:28)
[2024-12-23] MEDS: trazodone 100 mg Tablet 200 MG PO (20:35)
[2024-12-24 06:00] VITALS: BP 109/67; PULSE 68; RESP 18; TEMP 36.8; O2SAT 98
[2024-12-24] MEDS: naltrexone hcl 50 mg Tablet PO (07:58)
[2024-12-24] MEDS: venlafaxine ER (24HR) 150 mg Capsule 300 MG PO (07:58)
[2024-12-24] MEDS: CLONazepam 0.5 mg Tablet PO ×2 (07:58→16:59)
[2024-12-24] MEDS: divalproex ER 500 mg Tablet (24H) 1000 MG PO (07:58)
[2024-12-24] MEDS: nicotine 4 mg lozenge MUCOUS MEM ×4 (08:01→19:08)
[2024-12-24] MEDS: nicotine 21 mg Patch 1 PATCH TRANSDERMA (10:12)
--- NOTE | 2024-12-24 10:36 | PC.NURSE ---
pt removed nicotine patch gave to staff member
[2024-12-24] MEDS: nicotine 2 mg Gum BUCCAL ×2 (10:37→12:11)
[2024-12-24] MEDS: acetaminophen 325 mg Tablet 650 MG PO (11:02)
[2024-12-24] MEDS: propranolol 20 mg Tablet PO (11:18)
[2024-12-24 11:19] VITALS: BP 129/86
[2024-12-24] MEDS: hyDROXYzine 25 mg Capsule 50 MG PO (12:11)
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
[2024-12-24] MEDS: OLANZapine 5 mg ODT PO ×2 (13:27→17:43)
[2024-12-24 14:00] VITALS: BP 115/79; PULSE 82; RESP 16; TEMP 36.6; O2SAT 99
[2024-12-24] MEDS: haloperidol 5 mg Tablet PO (15:04)
[2024-12-24] MEDS: quetiapine 100 mg Tablet 200 MG PO (19:08)
[2024-12-24] MEDS: trazodone 100 mg Tablet 200 MG PO (19:08)
[2024-12-24 19:40] VITALS: BP 110/66; PULSE 102; RESP 18; TEMP 36.4; O2SAT 97
[2024-12-25 05:56] VITALS: BP 103/66; PULSE 55; RESP 16; O2SAT 98
[2024-12-25] MEDS: divalproex ER 500 mg Tablet (24H) 1000 MG PO (07:33)
[2024-12-25] MEDS: nicotine 2 mg Gum BUCCAL (07:33)
[2024-12-25] MEDS: CLONazepam 0.5 mg Tablet PO (07:34)
[2024-12-25] MEDS: naltrexone hcl 50 mg Tablet PO (07:34)
[2024-12-25] MEDS: venlafaxine ER (24HR) 150 mg Capsule 300 MG PO (07:34)
[2024-12-25 08:33] LABS: Valproic Acid Level 40.3 ug/mL (50-100)
[2024-12-25] MEDS: acetaminophen 325 mg Tablet 650 MG PO (10:22)
--- NOTE | 2024-12-25 10:24 | PC.NURSE ---
Patient presented to the nurses' station with c/o headache 01/23. He states this is common for him as he drinks a lot of caffeine at home. He states that Tylenol alleviates this well for him. Administered PRN Tylenol as ordered. Patient denies further questions/concerns at this time.
[2024-12-25 12:10] VITALS: BP 103/66; PULSE 78; RESP 18; O2SAT 98
--- NOTE | 2024-12-25 16:00 | P.NPUDS_ITS ---
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 18 12/25/24 12:10 BP 103/66 12/25/24 12:10 Pulse Ox 98 12/25/24 12:10 O2 Del Method Room Air 12/24/24 19:40 Discharge Plan Discharge Patient Disposition: Home Condition: Stable Prescriptions: New divalproex [Depakote ER] 250 mg tablet extended release 24 hr 250 mg PO 0900 Qty: 30 1RF Rx Instructions: Total Daily Dose 1250mg/day quetiapine 200 mg tablet 200 mg PO BEDTIME 30 Days Qty: 30 1RF clonazepam [Klonopin] 1 mg tablet 0.5 mg PO BID Qty: 30 1RF clonazepam [Klonopin] 0.5 mg tablet 0.25 mg PO 1500 Qty: 15 1RF Continued venlafaxine 150 mg capsule,extended release 24hr 300 mg PO DAILY 30 Days Qty: 60 11RF propranolol 20 mg tablet 20 mg PO BID PRN (Reason: anxiety) Qty: 60 2RF hydroxyzine HCl 50 mg tablet 50 mg PO BID PRN (Reason: anxiety) Qty: 60 2RF naltrexone 50 mg tablet 50 mg PO DAILY Qty: 30 11RF trazodone 100 mg tablet 200 mg PO BEDTIME PRN (Reason: Insomnia) divalproex 500 mg Tablet Extended Release 24 Hr 1,000 mg PO .AM 30 Days Qty: 60 1RF Discontinued quetiapine 150 mg tablet 150 mg PO BEDTIME 30 Days Qty: 30 1RF Discharge Orders: Discharge Order (Routine); Ordered 12/25/24 Ordered By: Ricki Carey Referrals: Preet Vizcarra MD [Physician, Psychiatry] - 12/30/24 12:45 pm Discharge Diet: Usual diet Discharge Activity: Resume usual activity Patient Instructions: Clonazepam (By mouth) (Klonopin), Trazodone (By mouth), Opioid Safety Discharge Attestations NPU Time Spent in Discharge Care*: less than 30 min Specific Discharge Activities: Specific discharge activities: educating patient, discussing with rehabilitation caseworker/social workers/dc planners and documenting/other paperwork Coding Level of Care Code Acute Code for Chg Fwd Diagnoses Major depressive disorder F32.9 Borderline personality disorder F60.3 Suicidal ideations R45.851 PTSD (post-traumatic stress disorder) F43.10 Drug overdose T50.902A Encounter type: initial encounter Injury intent: intentional self-harm Bipolar disorder with depression F31.9 Suicide attempt T14.91XA Panic attacks F41.0 History of OCD (obsessive compulsive disorder) Z86.59
== END 2024-12-25 12:16 | disposition home or self-care (01) | DRG 885 ==
LOC: ER 04:06 → ER IP 13:45 → NP 12-22 10:08
PROVIDERS: Admitting Provider Psychiatry & Neurology Psychiatry; Emergency Provider Emergency Medicine; Visit Provider Psychiatry & Neurology Psychiatry
DX: F31.9 Bipolar disorder, unspecified (principal); R45.851 Suicidal ideations; F60.3 Borderline personality disorder; F43.10 Post-traumatic stress disorder, unspecified; F41.0 Panic disorder [episodic paroxysmal anxiety]; Z86.59 Personal history of other mental and behavioral disorders; F17.210 Nicotine dependence, cigarettes, uncomplicated; F17.290 Nicotine dependence, other tobacco product, uncomplicated; Z81.8 Family history of other mental and behavioral disorders; Z62.812 Personal history of neglect in childhood; Z62.810 Personal history of physical and sexual abuse in childhood
CPT/HCPCS: 36415; 70450; 71045; 80053; 80164; 80306; 80307; 81001; 85025; 93005; 96372; 97150; 97165; 99285; J1200; J1630; J2060; J9999

== ENCOUNTER 2024-12-26 02:34 | Emergency (ER) | payer MEDICAID, SELFPAY ==
[2024-10-31 12:58] VITALS: BP 124/79; BMI 30.4
[2024-12-26 02:34] VITALS: BP 156/104; PULSE 111; RESP 18; TEMP 36.9; O2SAT 95; BMI 31.0
[2024-12-26] MEDS: CLONazepam 0.5 mg Tablet PO (03:13)
--- NOTE | 2024-12-26 03:16 | ED.C_ITS ---
HPI - Psych General: Chief Complaint: Psychiatric Symptoms Stated Complaint: Medication Time Seen by Provider: 12/26/24 02:45 History of Present Illness: Patient is a 24-year-old male who was just discharged from inpatient psychiatry less than 24 hours ago who called 911 to be seen in the emergency department again because he was unable to fill his prescriptions due to a preauthorization issue. He denies current SI or HI or delusions or hallucinations. He just wants to get clonazepam. He would like to be readmitted to the psychiatric unit. Related Data Home Medications ?Medication ?Instructions ?Recorded ?Confirmed trazodone 100 mg tablet 200 mg PO BEDTIME PRN Insomn ia 12/22/24 12/22/24 Previous Rx's ?Medication ?Instructions ?Recorded hydroxyzine HCl 50 mg tablet 50 mg PO BID PRN anxiety #60 tabs 09/10/24 propranolol 20 mg tablet 20 mg PO BID PRN anxiety #60 tabs 09/10/24 naltrexone 50 mg tablet 50 mg PO DAILY #30 tabs 04/10 venlafaxine 150 mg 300 mg (2 x 150 mg) PO DAILY 30 11/15/24 capsule,extended release 24 hr days #60 caps clonazepam 0.5 mg tablet (Klonopin) 0.25 mg (1/2 x 0.5 mg) PO 1500 #15 12/25/24 tabs clonazepam 1 mg tablet (Klonopin) 0.5 mg (1/2 x 1 mg) PO BID #30 tabs 12/25/24 divalproex 250 mg tablet,extended 250 mg PO 0900 #30 t abs 12/25/24 release 24 hr (Depakote ER) divalproex 500 mg tablet,extended 1,000 mg (2 x 500 mg ) PO .AM 30 12/25/24 release 24 hr days #60 tabs quetiapine 200 mg tablet 200 mg PO BEDTIME 30 days #3 0 tabs 12/25/24 Allergies Allergy/AdvReac Type Severity Reaction Status Date / Time No Known Allergies Allergy Verified 12/26/24 02:38 [facility] / [facility] ED PFSH: Medical History Septic arthritis of knee Psychiatric care History of OCD (obsessive compulsive disorder) Depression Family History Other Cancer Hypertension Social History Smoking and tobacco/nicotine status: current every day tobacco/nicotine user cigarettes Packs smoked per day: 10 Years cigarettes smoked: 10, e-cigarettes E- Cigarette Details: e-cigarette and with nicotine E-cig/vape details: 10,000 puff last only a week and smokeless tobacco Smokeless tobacco user: chewing tobacco Smokeless tobacco details: from time to time Quit status (tobacco/nicotine): considering quitting Second hand smoke exposure: Yes Alcohol intake: never Substance/Drug Use: current Substance/Drug use frequency: daily Additional social history: Patient states he wants full code on 11/16/2024 Adopted: No Caregiver/support person: No Lives independently: Yes Household members: family Housing: House Marital status: Single Number of children: 0 Number of grandchildren: 0 Highest education level completed: Some College, No Degree service: No Current occupational status: other Details: filing for disability Pets and animals: Yes Pets & animals: cat(s) and dog(s) Leisure activites: music and other Leisure activities details: watching TV Sexually active: No Do you think of yourself as: Straight/Heterosexual Current gender identity: Male Patricia/Synagogue: Other Special patricia needs: No Agree to transfusion: Yes Physical Exam Const: COMMON NORMALS: no acute distress, patient oriented x3 and alert HENMT: COMMON NORMALS: normocephalic and atraumatic HEAD & SCALP: normocephalic and atraumatic Eye: COMMON NORMALS: Equal, round and reactive pupils present, EOMs intact bilaterally and no scleral icterus PUPIL: Yes Equal, round and reactive p upils present Resp: COMMON NORMALS: normal respiratory effort and No retractions Cardio: COMMON NORMALS: regular rate, regular rhythm and No murmurs present (Cardio) RATE: regular rate RHYTHM: regular rhythm GI: COMMON NORMALS: Normal to inspection, nondistended, normoactive bowel sounds present, Soft to palpation and non-tender PALPATION: Yes Soft to pal pation Neuro: COMMON NORMALS: patient oriented x3 SENSORIUM/ORIENTATION: Yes alert Psych: OTHER: No HI or SI, no active hallucinations or delusions. No evidence of acute panic or anxiety state. Skin: COMMON NORMALS: no rashes or lesions noted GENERAL SKIN EXAM: no rashes or lesions noted Course Vital Signs: Vital signs: Vital Signs Temperature 98.4 F 12/26/24 02:34 Pulse Rate 111 H 12/26/24 02:34 Respiratory Rate 18 12/26/24 02:34 Blood Pressure 156/104 12/26/24 02:34 Pulse Oximetry 95 12/26/24 02:34 Oxygen Delivery Me thod Room Air 12/26/24 02:34 MDM - Psych Medical Decision Making In summary, patient is a 24-year-old male who came by ambulance because he was unable to obtain his prescription of clonazepam. He states that prior authorization is necessary. He would like to be readmitted to the psychiatric unit. I spoke with on-call psychiatry who recommends that the patient receive a single dose in the emergency department clonazepam and then be discharged home. They advised that the patient can present to the crisis center tomorrow to get help obtaining preauthorization. No radiology studies performed this visit Discharge Plan Discharge Patient Disposition: Home Clinical Impression: Encounter for medication refill Condition: Stable Prescriptions: No Action venlafaxine 150 mg capsule,extended release 24hr 300 mg PO DAILY 30 Days Qty: 60 11RF propranolol 20 mg tablet 20 mg PO BID PRN (Reason: anxiety) Qty: 60 2RF hydroxyzine HCl 50 mg tablet 50 mg PO BID PRN (Reason: anxiety) Qty: 60 2RF naltrexone 50 mg tablet 50 mg PO DAILY Qty: 30 11RF trazodone 100 mg tablet 200 mg PO BEDTIME PRN (Reason: Insomnia) divalproex [Depakote ER] 250 mg tablet extended release 24 hr 250 mg PO 0900 Qty: 30 1RF Rx Instructions: Total Daily Dose 1250mg/day quetiapine 200 mg tablet 200 mg PO BEDTIME 30 Days Qty: 30 1RF clonazepam [Klonopin] 1 mg tablet 0.5 mg PO BID Qty: 30 1RF clonazepam [Klonopin] 0.5 mg tablet 0.25 mg PO 1500 Qty: 15 1RF divalproex 500 mg Tablet Extended Release 24 Hr 1,000 mg PO .AM 30 Days Qty: 60 1RF Discharge Orders: Discharge ED (Routine); Ordered 12/26/24 Ordered By: Tru Au Activity Restrictions/Additional Instructions: The on-call psychiatrist was contacted concerning your case and they recommended that you get a dose of clonazepam here tonight and then follow-up with the crisis center tomorrow to help you obtain the prior authorization seeking a prescription in a timely fashion. Print Language: Tongan Coding Level of Care Code ED Ciso for Nish Stapleton
== END 2024-12-26 03:18 | disposition home or self-care (01) ==
PROVIDERS: Emergency Provider Student in an Organized Health Care Education/Training Program
DX: Z76.0 Encounter for issue of repeat prescription (principal); Z79.899 Other long term (current) drug therapy; F17.210 Nicotine dependence, cigarettes, uncomplicated; F17.290 Nicotine dependence, other tobacco product, uncomplicated
CPT/HCPCS: 99283; J9999

== ENCOUNTER 2024-12-26 07:30 | Emergency (ER) | payer MEDICAID, SELFPAY ==
[2024-10-31 12:58] VITALS: BP 124/79; BMI 30.4
[2024-12-26 07:31] VITALS: BP 132/84; PULSE 86; RESP 17; TEMP 36.8; O2SAT 97; BMI 31.0
[2024-12-26 08:08] LABS: Bilirubin Urine Negative (Negative); Blood Urine Negative (Negative); Glucose Urine UA Negative (Normal); Ketones Urine Trace (Negative); Leukocyte Esterase Urine Negative (Negative); Nitrate Urine Negative (Negative); Protein Urine Trace (Negative); Specific Gravity, Urine 1.029 (1.005-1.030); Urine Appearance Clear (CLEAR); Urine Color Yellow (Yellow); pH Urine 6.5 (5-7)
--- NOTE | 2024-12-26 08:09 | ED.C_ITS ---
HPI - Psych 2 General: Chief Complaint: Psychiatric Symptoms Stated Complaint: SI Time Seen by Provider: 12/26/24 07:32 History of Present Illness: 24-year-old male presents to the emergen cy room complaining that he was unable to get his Klonopin filled he was discharged yesterday he supposed to be on Klonopin he came in last night he was given a dose in the plan after consultation with the on-call psychiatrist is that he go to crisis stabilization this morning where they would help him with getting the prior authorization done. Related Data Home Medications ?Medication ?Instructions ?Recorded ?Confirmed trazodone 100 mg tablet 200 mg PO BEDTIME PRN Insomn ia 12/22/24 12/22/24 Previous Rx's ?Medication ?Instructions ?Recorded hydroxyzine HCl 50 mg tablet 50 mg PO BID PRN anxiety #60 tabs 09/10/24 propranolol 20 mg tablet 20 mg PO BID PRN anxiety #60 tabs 09/10/24 naltrexone 50 mg tablet 50 mg PO DAILY #30 tabs 04/10 venlafaxine 150 mg 300 mg (2 x 150 mg) PO DAILY 30 11/15/24 capsule,extended release 24 hr days #60 caps clonazepam 0.5 mg tablet (Klonopin) 0.25 mg (1/2 x 0.5 mg) PO 1500 #15 12/25/24 tabs clonazepam 1 mg tablet (Klonopin) 0.5 mg (1/2 x 1 mg) PO BID #30 tabs 12/25/24 divalproex 250 mg tablet,extended 250 mg PO 0900 #30 t abs 12/25/24 release 24 hr (Depakote ER) divalproex 500 mg tablet,extended 1,000 mg (2 x 500 mg ) PO .AM 30 12/25/24 release 24 hr days #60 tabs quetiapine 200 mg tablet 200 mg PO BEDTIME 30 days #3 0 tabs 12/25/24 Allergies Allergy/AdvReac Type Severity Reaction Status Date / Time No Known Allergies Allergy Verified 12/26/24 02:38 Review of Systems 2 Const: Denies: fever(s) or chills Card: Denies: chest pain Resp: Denies: dyspnea GI: Denies: abdominal pain : Denies: dysuria, urinary frequency or urinary urgency Musc: Denies: neck pain or back pain Skin/Breast: Denies: rash PFSH ED 2 PFSH: Medical History Septic arthritis of knee Psychiatric care History of OCD (obsessive compulsive disorder) Depression Family History Other Cancer Hypertension Social History Smoking and tobacco/nicotine status: current every day tobacco/nicotine user cigarettes Packs smoked per day: 10 Years cigarettes smoked: 10, e-cigarettes E- Cigarette Details: e-cigarette and with nicotine E-cig/vape details: 10,000 puff last only a week and smokeless tobacco Smokeless tobacco user: chewing tobacco Smokeless tobacco details: from time to time Quit status (tobacco/nicotine): considering quitting Second hand smoke exposure: Yes Alcohol intake: never Substance/Drug Use: current Substance/Drug use frequency: daily Additional social history: Patient states he wants full code on 11/16/2024 Adopted: No Caregiver/support person: No Lives independently: Yes Household members: family Housing: House Marital status: Single Number of children: 0 Number of grandchildren: 0 Highest education level completed: Some College, No Degree service: No Current occupational status: other Details: filing for disability Pets and animals: Yes Pets & animals: cat(s) and dog(s) Leisure activites: music and other Leisure activities details: watching TV Sexually active: No Do you think of yourself as: Straight/Heterosexual Current gender identity: Male Patricia/Zoroastrian: Other Special patricia needs: No Agree to transfusion: Yes Physical Exam 2 Const: GENERAL APPEARANCE: cooperative ORIENTATION/CONSCIOUSNESS: Yes awake, Yes oriented to person, Yes oriented to place and Yes oriented to time HENMT: COMMON NORMALS: normocephalic, atraumatic and hearing grossly normal bilaterally HEAD & SCALP: normocephalic and atraumatic Resp: COMMON NORMALS: normal respiratory effort, No retractions, No use of accessory muscles and clear to auscultation bilaterally AUSCULTATION: clear to auscultation bilaterally Cardio: COMMON NORMALS: regular rate, regular rhythm and No murmurs present (Cardio) RATE: regular rate RHYTHM: regular rhythm GI: COMMON NORMALS: Soft to palpation and No hepatosplenomegaly present A USCULTATION: Yes normoactive bowel sounds PALPATION: Yes Soft to palpation, No Tenderness to palpation present (GI), No Guarding due to palpation present (GI) and Yes No hepatosplenomegaly present Extremity: COMMON NORMALS: normal to inspection, capillary refill normal, no clubbing, cyanosis or edema, no calf tenderness and no pedal edema Neuro: SENSORIUM/ORIENTATION: Yes oriented to person, Yes oriented to place and Yes oriented to time Skin: COMMON NORMALS: no rashes or lesions noted GENERAL SKIN EXAM: no rashes or lesions noted Course 2 Vital Signs: Vital signs: Vital Signs Temperature 98.3 F 12/26/24 07:31 Pulse Rate 86 12/26/24 07:31 Respiratory Rate 17 12/26/24 07:31 Blood Pressure 132/84 12/26/24 07:31 Pulse Oximetry 97 12/26/24 07:31 Oxygen Delivery Me thod Room Air 12/26/24 07:31 MDM - Psych Medical Decision Making Discussed with Dr. Pedro. Dr. Pedro had just discharged the patient, he does not feel the patient needs to be admitted back to [facility]. We did discuss the grave stabilization worker going out to see him today and the patient's suicidal statements about not having his Klonopin. He is concerned about getting his Klonopin to him. I reviewed the note from last night as well the plan was to give him a dose last night and he was post go to crisis stabilization had where they could help him get the prior Auth done. Dr. Pedro recommends that we continue with that plan. Will give him a dose of Klonopin this morning here and then discharge him over to crisis stabilization. Of contact crisis stabilization for no plan Dr. pedro it asked that they be advised to call him if they need any assistance or have any questions any matter. Medical Records I reviewed the patient's medical records. Lab Data I reviewed the patient's lab results. 12/26/24 08:13 12/26/24 08:13 Laboratory Results WBC 9.02 10^3/uL (3.29-11.43) 12/26/24 08:13 RBC 4.52 10^6/uL (3.85-5.65) 12/26/24 08:13 Hgb 13.90 g/dL (11.27-16.99) 12/26/24 08:13 Hct 41.2 % (37-53) 12/26/24 08:13 MCV 91.2 fl (82-101) 12/26/24 08:13 MCH 30.8 pg (27-33) 12/26/24 08:13 MCHC 33.7 g/dL (30-55) 12/26/24 08:13 RDW 13.0 % (12.1-15.1) 12/26/24 08:13 Plt Count 266 10^3/cmm (157-399) 12/26/24 08:13 MPV 9.0 fL (7.4-10.4) 12/26/24 08:13 Neut % (Auto) 63.1 % 12/26/24 08:13 Lymph % (Auto) 24.8 % 12/26/24 08:13 Mckenzie % (Auto) 6.9 % 12/26/24 08:13 Eos % (Auto) 4.5 % 12/26/24 08:13 Baso % (Auto) 0.4 % 12/26/24 08:13 Neut # (Auto) 5.68 10^3/uL (1.8-7.7) 12/26/24 08:13 Lymph # (Auto) 2.2 10^3/uL (0.8-4.8) 12/26/24 08:13 Mckenzie # (Auto) 0.6 10^3/uL (0.2-0.9) 12/26/24 08:13 Eos # (Auto) 0.4 10^3/uL (0.0-0.8) 12/26/24 08:13 Baso # (Auto) 0.0 10^3/uL (0.0-0.1) 12/26/24 08:13 Nucleated RBC % (auto) 0 % 12/26/24 08:13 Nucleated RBCs # 0.0 /100WBC 12/26/24 08:13 Sodium 140 mmol/L (136-145) 12/26/24 08:13 Potassium 4.3 mmol/L (3.5-5.1) 12/26/24 08:13 Chloride 103 mmol/L (98-107) 12/26/24 08:13 Carbon Dioxide 23 mmol/L (22-29) 12/26/24 08:13 Anion Gap 18.3 (5-19) 12/26/24 08:13 BUN 13 mg/dL (6-20) 12/26/24 08:13 Creatinine 0.7 mg/dL (0.7-1.2) 12/26/24 08:13 GFR Calculation 141.0 mL/min (90-130) H 12/26/24 08:13 Glucose 90 mg/dL (65-115) 12/26/24 08:13 Calculated Osmolality 290 mOsm/kg (285-295) 12/26/24 08:13 Calcium 9.0 mg/dL (8.5-10.5) 12/26/24 08:13 Total Bilirubin 0.2 mg/dL (0.15-1.2) 12/26/24 08:13 AST 16 U/L (0-40) 12/26/24 08:13 ALT 17 U/L (0-41) 12/26/24 08:13 Alkaline Phosphatase 71 U/L (40-130) 12/26/24 08:13 Total Protein 7.2 g/dL (6.6-8.7) 12/26/24 08:13 Albumin 4.6 g/dL (3.5-5.2) 12/26/24 08:13 Globulin 2.6 g/dL (1.3-4.6) 12/26/24 08:13 Urine Color Yellow (Yellow) 12/26/24 07:39 Urine Appearance Clear (CLEAR) 12/26/24 07:39 Urine pH 6.5 (5-7) 12/26/24 07:39 Ur Specific [place] 1.029 (1.005-1.030) 12/26/24 07:39 Urine Protein Trace (Negative) A 12/26/24 07:39 Urine Glucose (UA) Negative (Normal) 12/26/24 07:39 Urine Ketones Trace (Negative) 12/26/24 07:39 Urine Blood Negative (Negative) 12/26/24 07:39 Urine Nitrate Negative (Negative) 12/26/24 07:39 Urine Bilirubin Negative (Negative) 12/26/24 07:39 Urine Urobilinogen 1.0 mg/dL (Negative) 12/26/24 07:39 Ur Leukocyte Esterase Negative (Negative) 12/26/24 07:39 Urine RBC 0-2 /hpf (0-2) 12/26/24 07:39 Urine WBC 0-5 /hpf (0-5) 12/26/24 07:39 Ur Squamous Epith Cells 0-5 /hpf (0-5) 12/26/24 07:39 Amorphous Sediment Not Reportable 12/26/24 07:39 Urine Bacteria None seen /hpf (NONE) 12/26/24 07:39 Hyaline Casts 0.40 /lpf 12/26/24 07:39 Salicylates < 0.3 mg/dL (3-10) L 12/26/24 08:13 Urine Opiates Screen Negative ng/mL (Negative) 12/26/24 07:39 Acetaminophen < 5.0 ug/mL (10-30) L 12/26/24 08:13 Ur Barbiturates Screen Negative ng/mL (Negative) 12/26/24 07:39 Ur Phencyclidine Scrn Negative ng/mL (Negative) 12/26/24 07:39 Ur Amphetamines Screen Negative ng/mL (Negative) 12/26/24 07:39 U Benzodiazepines Scrn Negative ng/mL (Negative) 12/26/24 07:39 Urine Cocaine Screen Negative ng/mL (Negative) 12/26/24 07:39 U Marijuana (THC) Screen Positive ng/mL (Negative) H 12/26/24 07:39 Ethyl Alcohol < 10 mg/dL (0-10) 12/26/24 08:13 All radiology interpretation(s) finalized by discharge Discharge Plan Discharge Patient Disposition: Home Clinical Impression: Major depressive disorder, JIMY (generalized anxiety disorder), Acute anxiety Condition: Stable Prescriptions: No Action venlafaxine 150 mg capsule,extended release 24hr 300 mg PO DAILY 30 Days Qty: 60 11RF propranolol 20 mg tablet 20 mg PO BID PRN (Reason: anxiety) Qty: 60 2RF hydroxyzine HCl 50 mg tablet 50 mg PO BID PRN (Reason: anxiety) Qty: 60 2RF naltrexone 50 mg tablet 50 mg PO DAILY Qty: 30 11RF trazodone 100 mg tablet 200 mg PO BEDTIME PRN (Reason: Insomnia) divalproex [Depakote ER] 250 mg tablet extended release 24 hr 250 mg PO 0900 Qty: 30 1RF Rx Instructions: Total Daily Dose 1250mg/day quetiapine 200 mg tablet 200 mg PO BEDTIME 30 Days Qty: 30 1RF clonazepam [Klonopin] 1 mg tablet 0.5 mg PO BID Qty: 30 1RF clonazepam [Klonopin] 0.5 mg tablet 0.25 mg PO 1500 Qty: 15 1RF divalproex 500 mg Tablet Extended Release 24 Hr 1,000 mg PO .AM 30 Days Qty: 60 1RF Discharge Orders: Discharge ED (Routine); Ordered 12/26/24 Ordered By: Jos Nazario Discharge Diet: Usual diet Discharge Activity: Resume usual activity Patient Instructions: Opioid Safety, Pain Management Activity Restrictions/Additional Instructions: Thank you for choosing [facility] for your healthcare needs today. It is very important that you follow up as instructed or that you return to the Emergency Department should you have concerns or if your condition changes or worsens in any way. You were seen in the emergency room with anxiety issues. I discussed with psychiatrist to discharge yesterday was also on-call today. They are not recommending admission to the [facility] they did ask us to give you a dose of your morning Klonopin and discharge you. They recommend that you go to the crisis stabilization center there Dr. Carey along with a crisis stabilization center staff will help get the prior authorization completed so you can get your clonazepam. Print Language: Nicaraguan Coding Level of Care Code ED Nut Grinder for Nish Stapleton
[2024-12-26 08:11] LABS: Amphetamines Screen Urine Negative (Negative); Barbiturates Screen Urine Negative (Negative); Benzodiazepines Screen Urine Negative (Negative); Cocaine Screen Urine Negative (Negative); Opiate Screen Urine Negative (Negative); PCP Screen Urine Negative (Negative); THC Screen Urine Positive (Negative)
[2024-12-26 08:13] LABS: Add Urine Microscopic? YES; Bacteria Urine None Seen /hpf; RBC Urine 0-2 /hpf (0-2); Squamous Epithelial Cell Urine 0-5 /hpf (0-5); WBC Urine 0-5 /hpf (0-5)
[2024-12-26 08:24] LABS: Basophils % 0.4 %; Eosinophils # 0.4 10^3/uL (0.0-0.8); Eosinophils % 4.5 %; Hematocrit 41.2 % (37-53); Lymphocytes # 2.2 10^3/uL (0.8-4.8); Lymphocytes % 24.8 %; Mean Corpuscular HGB Conc 33.7 g/dL (30-55); Mean Corpuscular Hemoglobin 30.8 pg (27-33); Mean Corpuscular Volume 91.2 fl (82-101); Monocytes # 0.6 10^3/uL (0.2-0.9); Monocytes % 6.9 %; Neutrophils # 5.68 10^3/uL (1.8-7.7); Neutrophils % 63.1 %; Nucleated Red Blood Cells % 0 %; Platelet Count 266 10^3/cmm (157-399); Red Blood Count 4.52 10^6/uL (3.85-5.65); White Blood Count 9.02 10^3/uL (3.29-11.43)
[2024-12-26 08:41] LABS: Alanine Aminotransferase 17 U/L (0-41); Albumin Level 4.6 g/dL (3.5-5.2); Alkaline Phosphatase 71 U/L (40-130); Anion Gap 18.3 (5-19); Aspartate Amino Transferase 16 U/L (0-40); Blood Urea Nitrogen 13 mg/dL (6-20); Carbon Dioxide 23 mmol/L (22-29); Chloride 103 mmol/L (98-107); Creatinine Clr Calc Pharmacy 188.5228; Globulin 2.6 g/dL (1.3-4.6); Glucose 90 mg/dL (65-115); Osmolality Calculated 290 mOsm/kg (285-295); Potassium 4.3 mmol/L (3.5-5.1); Sodium 140 mmol/L (136-145); Total Bilirubin 0.2 mg/dL (0.15-1.2); Total Protein 7.2 g/dL (6.6-8.7)
[2024-12-26 08:44] LABS: Acetaminophen < 5.0 ug/mL (10-30); Alcohol Level < 10 mg/dL (0-10); Salicylate < 0.3 mg/dL (3-10)
[2024-12-26] MEDS: CLONazepam 0.5 mg Tablet PO (09:30)
== END 2024-12-26 09:48 | disposition home or self-care (01) ==
PROVIDERS: Emergency Provider Family Medicine
DX: F32.9 Major depressive disorder, single episode, unspecified (principal); F41.1 Generalized anxiety disorder; R45.851 Suicidal ideations; F41.9 Anxiety disorder, unspecified; F17.210 Nicotine dependence, cigarettes, uncomplicated; F17.290 Nicotine dependence, other tobacco product, uncomplicated; Z79.899 Other long term (current) drug therapy
CPT/HCPCS: 36415; 80053; 80306; 80307; 81001; 85025; 99283; J9999

== ENCOUNTER 2024-12-26 17:14 | Emergency (ER) | payer MEDICAID, SELFPAY ==
[2024-10-31 12:58] VITALS: BP 124/79; BMI 30.4
--- NOTE | 2024-12-26 17:18 | ED_ITS ---
HPI - General Adult General: Stated complaint: 96 Time Seen by Provider: 12/26/24 17:17 History of Present Illness: 24-year-old male presents to the emergen cy room on a 96-hour hold. Patient was discharged yesterday from [facility] and was discharged home on Klonopin. There was some difficulty getting his medications filled he became quite frustrated he was here early hours this morning around 3 AM seen and evaluated by ER physician and then consult in consultation a psychiatrist on-call seen the plans were made to help the patient gets his medications later in the morning through crisis stabilization. He was given Klonopin and discharged home he returned later the same morning on the same issues I seen the patient at that time I consulted Dr. Bolanos who had discharged the patient today day before and cared for him during his hospital stay Dr. Bolanos did not feel he needed to be admitted. He had been referred back to the emergency room by [facility]. After consultation with Dr. Bolanos we discharged the patient from the emergency room to go to crisis stabilization where Dr. Bolanos planned to help go through the prior authorization process to get him on his medications. Dr. oBlanos's opinion patient was stable to be at home he would just need to get on his medications he was point of mistake I stabilization until he can make arrangements for this. In the interim staff members at [facility] had the patient [address] We are aware of this Dr. Bolanos by this time had already made arrangements for him to get the medications. He is brought back in now by [facility]'s department based on the 96-hour hold. Patient denies being suicidal. He states since he was able to get back on his medications he feels much better he is less frustrated and he is handling issues well he has no intent in harming himself. Related Data Home Medications ?Medication ?Instructions ?Recorded ?Confirmed trazodone 100 mg tablet 200 mg PO BEDTIME PRN Insomn ia 12/22/24 12/22/24 Previous Rx's ?Medication ?Instructions ?Recorded hydroxyzine HCl 50 mg tablet 50 mg PO BID PRN anxiety #60 tabs 09/10/24 propranolol 20 mg tablet 20 mg PO BID PRN anxiety #60 tabs 09/10/24 naltrexone 50 mg tablet 50 mg PO DAILY #30 tabs 04/0 9/25 venlafaxine 150 mg 300 mg (2 x 150 mg) PO DAILY 30 11/15/24 capsule,extended release 24 hr days #60 caps clonazepam 0.5 mg tablet (Klonopin) 0.25 mg (1/2 x 0.5 mg) PO 1500 #15 12/25/24 tabs clonazepam 1 mg tablet (Klonopin) 0.5 mg (1/2 x 1 mg) PO BID #30 tabs 12/25/24 divalproex 250 mg tablet,extended 250 mg PO 0900 #30 t abs 12/25/24 release 24 hr (Depakote ER) divalproex 500 mg tablet,extended 1,000 mg (2 x 500 mg ) PO .AM 30 12/25/24 release 24 hr days #60 tabs quetiapine 200 mg tablet 200 mg PO BEDTIME 30 days #3 0 tabs 12/25/24 clonazepam 0.5 mg tablet (Klonopin) 0.5 mg PO DIREC RAVEN 10 days #25 12/26/24 tabs Allergies Allergy/AdvReac Type Severity Reaction Status Date / Time No Known Allergies Allergy Verified 12/26/24 02:38 [facility] ED PFSH: Medical History Septic arthritis of knee Psychiatric care History of OCD (obsessive compulsive disorder) Depression Family History Other Cancer Hypertension Social History Smoking and tobacco/nicotine status: current every day tobacco/nicotine user cigarettes Packs smoked per day: 10 Years cigarettes smoked: 10, e-cigarettes E- Cigarette Details: e-cigarette and with nicotine E-cig/vape details: 10,000 puff last only a week and smokeless tobacco Smokeless tobacco user: chewing tobacco Smokeless tobacco details: from time to time Quit status (tobacco/nicotine): considering quitting Second hand smoke exposure: Yes Alcohol intake: never Substance/Drug Use: current Substance/Drug use frequency: daily Additional social history: Patient states he wants full code on 11/16/2024 Adopted: No Caregiver/support person: No Lives independently: Yes Household members: family Housing: House Marital status: Single Number of children: 0 Number of grandchildren: 0 Highest education level completed: Some College, No Degree service: No Current occupational status: other Details: filing for disability Pets and animals: Yes Pets & animals: cat(s) and dog(s) Leisure activites: music and other Leisure activities details: watching TV Sexually active: No Do you think of yourself as: Straight/Heterosexual Current gender identity: Male Patricia/Mormon: Other Special patricia needs: No Agree to transfusion: Yes Physical Exam Const: COMMON NORMALS: no acute distress GENERAL APPEARANCE: cooperative and comfortable ORIENTATION/CONSCIOUSNESS: Yes awake, Yes oriented to person, Yes oriented to place and Yes oriented to time HENMT: COMMON NORMALS: normocephalic, atraumatic and hearing grossly normal bilaterally HEAD & SCALP: normocephalic and atraumatic Resp: COMMON NORMALS: normal respiratory effort, No retractions, No use of accessory muscles and clear to auscultation bilaterally AUSCULTATION: clear to auscultation bilaterally Cardio: COMMON NORMALS: regular rate, regular rhythm and No murmurs present (Cardio) RATE: regular rate RHYTHM: regular rhythm Neuro: SENSORIUM/ORIENTATION: Yes oriented to person, Yes oriented to place and Yes oriented to time Skin: COMMON NORMALS: no rashes or lesions noted GENERAL SKIN EXAM: no rashes or lesions noted [facility] - General Adult Medical Decision Making Patient is not suicidal his issues have already been addressed extensively throughout the day by the psychiatrist. I talked to Dr. Bolanos early as we were aware that the patient was subject to a 96-hour hold Dr. Bolanos had advised me prior to the patient being brought in by the [facility] sure department that he had made arrangements for the medication the patient was doing well. Also talked 20 administrators who is aware of the situation and that the patient was at crisis stabilization was sleeping and was actually doing very well. Reinterviewed Mr. Newman and also contacted Dr. Bolanos at this time there is no psychiatric emergency patient is not suicidal. Dr. Bolanos's assessment and plan were appropriate and patient no longer has any issues noted his medication problem has been addressed. 96-hour hold is rescinded, Dr. Bolanos is in agreement. Patient should follow-up with [facility] as previously scheduled for his discharge instructions yesterday from the [facility] Medical Records I reviewed the patient's medical records. All radiology interpretation(s) finalized by discharge Discharge Plan Discharge Patient Disposition: Home Clinical Impression: JIMY (generalized anxiety disorder), Attention-deficit hyperactivity disorder, unspecified type, PTSD (post-traumatic stress disorder) Condition: Stable Prescriptions: No Action venlafaxine 150 mg capsule,extended release 24hr 300 mg PO DAILY 30 Days Qty: 60 11RF propranolol 20 mg tablet 20 mg PO BID PRN (Reason: anxiety) Qty: 60 2RF hydroxyzine HCl 50 mg tablet 50 mg PO BID PRN (Reason: anxiety) Qty: 60 2RF naltrexone 50 mg tablet 50 mg PO DAILY Qty: 30 11RF trazodone 100 mg tablet 200 mg PO BEDTIME PRN (Reason: Insomnia) divalproex [Depakote ER] 250 mg tablet extended release 24 hr 250 mg PO 0900 Qty: 30 1RF Rx Instructions: Total Daily Dose 1250mg/day quetiapine 200 mg tablet 200 mg PO BEDTIME 30 Days Qty: 30 1RF clonazepam [Klonopin] 1 mg tablet 0.5 mg PO BID Qty: 30 1RF clonazepam [Klonopin] 0.5 mg tablet 0.25 mg PO 1500 Qty: 15 1RF divalproex 500 mg Tablet Extended Release 24 Hr 1,000 mg PO .AM 30 Days Qty: 60 1RF clonazepam [Klonopin] 0.5 mg tablet 0.5 mg PO DIRECTED 10 Days Qty: 25 0RF Rx Instructions: Take one tablet in am, 1/2 tablet in afternoon, one tablet at night Discharge Orders: Discharge ED (Routine); Ordered 12/26/24 Ordered By: Jos Nazario Discharge Diet: Usual diet Discharge Activity: Resume usual activity Patient Instructions: Opioid Safety, Pain Management Activity Restrictions/Additional Instructions: Thank you for choosing [facility] for your healthcare needs today. It is very important that you follow up as instructed or that you return to the Emergency Department should you have concerns or if your condition changes or worsens in any way. Follow-up with [facility] as scheduled. Continue current medications. Print Language: Mauritian Coding Level of Care Code ED Auto Transmission Technician for Nish Stapleton
[2024-12-26 17:28] VITALS: BP 134/87; PULSE 97; RESP 18; TEMP 36.8; O2SAT 98
== END 2024-12-26 17:35 | disposition home or self-care (01) ==
PROVIDERS: Emergency Provider Family Medicine
DX: F41.1 Generalized anxiety disorder (principal); F90.9 Attention-deficit hyperactivity disorder, unspecified type; F43.10 Post-traumatic stress disorder, unspecified; F17.210 Nicotine dependence, cigarettes, uncomplicated; F17.290 Nicotine dependence, other tobacco product, uncomplicated; Z79.899 Other long term (current) drug therapy
CPT/HCPCS: 99283

== ENCOUNTER 2024-12-30 09:06 | Inpatient (IN) | payer MEDICAID, SELFPAY ==
[2024-12-29 17:33] VITALS: BP 124/79; BMI 30.4
[2024-12-30 09:16] VITALS: BP 146/89; PULSE 94; RESP 16; TEMP 36.7; O2SAT 98
--- NOTE | 2024-12-30 09:17 | W.ED.PSYCHS ---
HPI - Psych General: Chief Complaint: Psychiatric Symptoms Stated Complaint: Si Time Seen by Provider: 12/30/24 09:08 History of Present Illness: 24-year-old male presents emergency room with complaints of suicidal ideation. Patient has been in and out of the [facility] multiple times recently he was seen several times last week shortly after he been discharged. We did consult with psychiatry each time he came in. He was not able to get his Klonopin when he was first discharged when he was able to get it suicidal ideation resolved. Dr. Bolanos it felt that he was safe to go home and when he was seen the last time he was having no suicidal ideation he felt much better after having gotten his Klonopin. When he left after that the following day he evidently tried to overdose on his Klonopin and was brought to [facility] he was transferred to inpatient psychiatry. He left from their [facility]. Presents today complaining of suicidal ideation again. Related Data Home Medications ?Medication ?Instructions ?Recorded ?Confirmed trazodone 100 mg tablet 200 mg PO BEDTIME PRN Insomnia 12/22/24 12/30/24 buspirone 15 mg tablet 15 mg PO TID 12/30/24 12/30/24 clonazepam 0.5 mg tablet (Klonopin) See Rx Instructions .Route .COMPLEX 12/30/24 12/30/24 methylphenidate HCl 20 mg tablet 20 mg PO DAILY 12/30/24 12/30/24 nicotine 21 mg/24 hr daily 1 patch topical DAILY 12/30/24 12/30/24 transdermal patch varenicline tartrate 1 mg tablet 1 mg PO BID 12/30/24 12/30/24 venlafaxine 75 mg capsule,extended 75 mg PO DAILY 12/30/24 12/30/24 release 24 hr Previous Rx's ?Medication ?Instructions ?Recorded hydroxyzine HCl 50 mg tablet 50 mg PO BID PRN anxiety #60 tabs 09/10/24 propranolol 20 mg tablet 20 mg PO BID PRN anxiety #60 tabs 09/10/24 naltrexone 50 mg tablet 50 mg PO DAILY #30 tabs 10/23/24 divalproex 250 mg tablet,extended 250 mg PO 0900 #30 tabs 12/25/24 release 24 hr (Depakote ER) divalproex 500 mg tablet,extended 1,000 mg (2 x 500 mg) PO .AM 30 12/25/24 release 24 hr days #60 tabs quetiapine 200 mg tablet 200 mg PO BEDTIME 30 days #30 tabs 12/25/24 Allergies Allergy/AdvReac Type Severity Reaction Status Date / Time No Known Allergies Allergy Verified 12/26/24 02:38 Review of Systems Const: Denies: fever(s) or chills Card: Denies: chest pain Resp: Denies: dyspnea GI: Denies: abdominal pain : Denies: dysuria, urinary frequency or urinary urgency Musc: Denies: neck pain or back pain Skin/Breast: Denies: rash PFSH ED PFSH: Medical History Septic arthritis of knee Psychiatric care History of OCD (obsessive compulsive disorder) Depression Family History Other Cancer Hypertension Social History Smoking and tobacco/nicotine status: current every day tobacco/nicotine user cigarettes Packs smoked per day: 10 Years cigarettes smoked: 10, e-cigarettes E-Cigarette Details: e-cigarette and with nicotine E-cig/vape details: 10,000 puff last only a week and smokeless tobacco Smokeless tobacco user: chewing tobacco Smokeless tobacco details: from time to time Quit status (tobacco/nicotine): considering quitting Second hand smoke exposure: Yes Alcohol intake: never Substance/Drug Use: current Substance/Drug use frequency: daily Additional social history: Patient states he wants full code on 11/16/2024 Adopted: No Caregiver/support person: No Lives independently: Yes Household members: family Housing: House Marital status: Single Number of children: 0 Number of grandchildren: 0 Highest education level completed: Some College, No Degree service: No Current occupational status: other Details: filing for disability Pets and animals: Yes Pets & animals: cat(s) and dog(s) Leisure activites: music and other Leisure activities details: watching TV Sexually active: No Do you think of yourself as: Straight/Heterosexual Current gender identity: Male Patricia/Episcopalian: Other Special patricia needs: No Agree to transfusion: Yes Physical Exam Const: COMMON NORMALS: no acute distress GENERAL APPEARANCE: cooperative and comfortable ORIENTATION/CONSCIOUSNESS: Yes awake, Yes oriented to person, Yes oriented to place and Yes oriented to time HENMT: COMMON NORMALS: normocephalic, atraumatic and hearing grossly normal bilaterally HEAD & SCALP: normocephalic and atraumatic Resp: COMMON NORMALS: normal respiratory effort, No retractions, No use of accessory muscles and clear to auscultation bilaterally AUSCULTATION: clear to auscultation bilaterally Cardio: COMMON NORMALS: regular rate, regular rhythm and No murmurs present (Cardio) RATE: regular rate RHYTHM: regular rhythm Extremity: COMMON NORMALS: normal to inspection, capillary refill normal, no clubbing, cyanosis or edema, no calf tenderness and no pedal edema Neuro: SENSORIUM/ORIENTATION: Yes oriented to person, Yes oriented to place and Yes oriented to time Skin: COMMON NORMALS: no rashes or lesions noted GENERAL SKIN EXAM: no rashes or lesions noted Course Vital Signs: Vital signs: Vital Signs Temperature 97.7 F 12/30/24 13:35 Pulse Rate 86 12/30/24 13:35 Respiratory Rate 16 12/30/24 13:35 Blood Pressure 118/84 12/30/24 13:35 Pulse Oximetry 98 12/30/24 13:35 Oxygen Delivery Me thod Room Air 12/30/24 13:35 MDM - Psych Medical Decision Making Discussed with Dr. Bowie. Will readmit under 96-hour hold. Orders written. Patient is aware. He did have some anxiety we gave him some Geodon and Ativan which worked well for him. Medical Records I reviewed the patient's medical records. Lab Data I reviewed the patient's lab results. 12/30/24 09:32 12/30/24 09:32 Laboratory Results WBC 9.80 10^3/uL (3.29-11.43) 12/30/24 09:32 RBC 4.72 10^6/uL (3.85-5.65) 12/30/24 09:32 Hgb 14.60 g/dL (11.27-16.99) 12/30/24 09:32 Hct 43.6 % (37-53) 12/30/24 09:32 MCV 92.4 fl (82-101) 12/30/24 09:32 MCH 30.9 pg (27-33) 12/30/24 09:32 MCHC 33.5 g/dL (30-55) 12/30/24 09:32 RDW 12.7 % (12.1-15.1) 12/30/24 09:32 Plt Count 299 10^3/cmm (157-399) 12/30/24 09:32 MPV 9.1 fL (7.4-10.4) 12/30/24 09:32 Neut % (Auto) 67.0 % 12/30/24 09:32 Lymph % (Auto) 21.8 % 12/30/24 09:32 [place] % (Auto) 6.4 % 12/30/24 09:32 Eos % (Auto) 4.0 % 12/30/24 09:32 Baso % (Auto) 0.5 % 12/30/24 09:32 Neut # (Auto) 6.56 10^3/uL (1.8-7.7) 12/30/24 09:32 Lymph # (Auto) 2.1 10^3/uL (0.8-4.8) 12/30/24 09:32 [place] # (Auto) 0.6 10^3/uL (0.2-0.9) 12/30/24 09:32 Eos # (Auto) 0.4 10^3/uL (0.0-0.8) 12/30/24 09:32 Baso # (Auto) 0.1 10^3/uL (0.0-0.1) 12/30/24 09:32 Nucleated RBC % (auto) 0 % 12/30/24 09:32 Nucleated RBCs # 0.0 /100WBC 12/30/24 09:32 Sodium 141 mmol/L (136-145) 12/30/24 09:32 Potassium 4.4 mmol/L (3.5-5.1) 12/30/24 09:32 Chloride 106 mmol/L (98-107) 12/30/24 09:32 Carbon Dioxide 22 mmol/L (22-29) 12/30/24 09:32 Anion Gap 17.4 (5-19) 12/30/24 09:32 BUN 11 mg/dL (6-20) 12/30/24 09:32 Creatinine 0.8 mg/dL (0.7-1.2) 12/30/24 09:32 GFR Calculation 120.9 mL/min (90-130) 12/30/24 09:32 Glucose 82 mg/dL (65-115) 12/30/24 09:32 Calculated Osmolality 290 mOsm/kg (285-295) 12/30/24 09:32 Calcium 9.5 mg/dL (8.5-10.5) 12/30/24 09:32 Total Bilirubin 0.2 mg/dL (0.15-1.2) 12/30/24 09:32 AST 18 U/L (0-40) 12/30/24 09:32 ALT 17 U/L (0-41) 12/30/24 09:32 Alkaline Phosphatase 72 U/L (40-130) 12/30/24 09:32 Total Protein 7.4 g/dL (6.6-8.7) 12/30/24 09:32 Albumin 4.6 g/dL (3.5-5.2) 12/30/24 09:32 Globulin 2.8 g/dL (1.3-4.6) 12/30/24 09:32 Urine Color Yellow (Yellow) 12/30/24 10:13 Urine Appearance Clear (CLEAR) 12/30/24 10:13 Urine pH 6.5 (5-7) 12/30/24 10:13 Ur Specific [place] 1.020 (1.005-1.030) 12/30/24 10:13 Urine Protein Negative (Negative) 12/30/24 10:13 Urine Glucose (UA) Negative (Normal) 12/30/24 10:13 Urine Ketones Trace (Negative) 12/30/24 10:13 Urine Blood Negative (Negative) 12/30/24 10:13 Urine Nitrate Negative (Negative) 12/30/24 10:13 Urine Bilirubin Negative (Negative) 12/30/24 10:13 Urine Urobilinogen 1.0 mg/dL (Negative) 12/30/24 10:13 Ur Leukocyte Esterase Negative (Negative) 12/30/24 10:13 Urine RBC 0-2 /hpf (0-2) 12/30/24 10:13 Urine WBC 0-5 /hpf (0-5) 12/30/24 10:13 Ur Squamous Epith Cells 0-5 /hpf (0-5) 12/30/24 10:13 Amorphous Sediment Not Reportable 12/30/24 10:13 Urine Bacteria None seen /hpf (NONE) 12/30/24 10:13 Hyaline Casts 2.46 /lpf 12/30/24 10:13 Salicylates < 0.3 mg/dL (3-10) L 12/30/24 09:32 Urine Opiates Screen Negative ng/mL (Negative) 12/30/24 10:13 Acetaminophen < 5.0 ug/mL (10-30) L 12/30/24 09:32 Ur Barbiturates Screen Negative ng/mL (Negative) 12/30/24 10:13 Ur Phencyclidine Scrn Negative ng/mL (Negative) 12/30/24 10:13 Ur Amphetamines Screen Negative ng/mL (Negative) 12/30/24 10:13 U Benzodiazepines Scrn Positive ng/mL (Negative) H 12/30/24 10:13 Urine Cocaine Screen Negative ng/mL (Negative) 12/30/24 10:13 U Marijuana (THC) Screen Positive ng/mL (Negative) H 12/30/24 10:13 Ethyl Alcohol < 10 mg/dL (0-10) 12/30/24 09:32 No radiology studies performed this visit Discharge Plan Discharge Patient Disposition: Admitted As Inpatient Admit Provider: Fadi Bowie Clinical Impression: Suicidal ideation, Borderline personality disorder Condition: Stable Coding Level of Care Code ED Administrative Judge for Nish Stapleton
[2024-12-30 09:41] LABS: Basophils # 0.1 10^3/uL (0.0-0.1); Basophils % 0.5 %; Eosinophils # 0.4 10^3/uL (0.0-0.8); Hematocrit 43.6 % (37-53); Lymphocytes # 2.1 10^3/uL (0.8-4.8); Lymphocytes % 21.8 %; Mean Corpuscular HGB Conc 33.5 g/dL (30-55); Mean Corpuscular Hemoglobin 30.9 pg (27-33); Mean Corpuscular Volume 92.4 fl (82-101); Mean Platelet Volume 9.1 fL (7.4-10.4); Monocytes # 0.6 10^3/uL (0.2-0.9); Monocytes % 6.4 %; Neutrophils # 6.56 10^3/uL (1.8-7.7); Nucleated Red Blood Cells % 0 %; Platelet Count 299 10^3/cmm (157-399); Red Blood Count 4.72 10^6/uL (3.85-5.65); Red Cell Distribution Width 12.7 % (12.1-15.1)
[2024-12-30 10:21] LABS: Alanine Aminotransferase 17 U/L (0-41); Albumin Level 4.6 g/dL (3.5-5.2); Alkaline Phosphatase 72 U/L (40-130); Anion Gap 17.4 (5-19); Aspartate Amino Transferase 18 U/L (0-40); Blood Urea Nitrogen 11 mg/dL (6-20); Calcium 9.5 mg/dL (8.5-10.5); Carbon Dioxide 22 mmol/L (22-29); Chloride 106 mmol/L (98-107); Creatinine Clr Calc Pharmacy 164.9574; Globulin 2.8 g/dL (1.3-4.6); Glomerular Filtration Rate 120.9 mL/min (90-130); Glucose 82 mg/dL (65-115); Osmolality Calculated 290 mOsm/kg (285-295); Potassium 4.4 mmol/L (3.5-5.1); Sodium 141 mmol/L (136-145); Total Bilirubin 0.2 mg/dL (0.15-1.2); Total Protein 7.4 g/dL (6.6-8.7)
[2024-12-30 10:25] LABS: Acetaminophen < 5.0 ug/mL (10-30); Alcohol Level < 10 mg/dL (0-10); Salicylate < 0.3 mg/dL (3-10)
[2024-12-30 10:26] LABS: Bilirubin Urine Negative (Negative); Blood Urine Negative (Negative); Glucose Urine UA Negative (Normal); Ketones Urine Trace (Negative); Leukocyte Esterase Urine Negative (Negative); Nitrate Urine Negative (Negative); Protein Urine Negative (Negative); Urine Appearance Clear (CLEAR); Urine Color Yellow (Yellow); pH Urine 6.5 (5-7)
[2024-12-30 10:29] LABS: Add Urine Microscopic? YES; Bacteria Urine None Seen /hpf; Hyaline Casts Urine 2.46 /lpf; RBC Urine 0-2 /hpf (0-2); Squamous Epithelial Cell Urine 0-5 /hpf (0-5); WBC Urine 0-5 /hpf (0-5)
[2024-12-30 10:33] LABS: Amphetamines Screen Urine Negative (Negative); Barbiturates Screen Urine Negative (Negative); Benzodiazepines Screen Urine Positive (Negative); Cocaine Screen Urine Negative (Negative); Opiate Screen Urine Negative (Negative); PCP Screen Urine Negative (Negative); THC Screen Urine Positive (Negative)
[2024-12-30] MEDS: LORazepam 1 MG/0.5 ML injection 2 MG IM ×2 (10:48→18:15)
[2024-12-30] MEDS: water for injection-sterile 10 ML (10:49)
[2024-12-30] MEDS: ziprasidone 20 mg/mL SDV 10 MG IM (10:49)
--- NOTE | 2024-12-30 12:32 | PC.PHAR ---
Pt does not acknowledge or wake up when I spoke to him. Verified medications via 3 pharmacies-[facility], [facility], and [facility]. Last fill dates and day supply added. I, also looked at discharge list from 12/26/24 which had 2rx's for Clonazepam on it. I reduced to the most current verified rx from [facility].
--- NOTE | 2024-12-30 12:58 | PC.NURSE ---
96 hr rights reviewed with pt @1040 with assistance of [facility] senior administrative services officer Jacob Tom All education reviewed at this time. Pt copy left with pt @bedside. Pt declined drink or snack when asked. No further needs.
[2024-12-30 13:08] VITALS: BP 118/84; PULSE 86; RESP 16; TEMP 36.5; O2SAT 98
[2024-12-30 13:35] VITALS: BP 118/84; PULSE 86; RESP 16; TEMP 36.5; O2SAT 98
--- NOTE | 2024-12-30 13:45 | PC.NURSE ---
Pt arrived to [facility] from ER via wheelchair w/ staff and security present at 1307. Pt presents w/ co SI thoughts with intention to OD on his medications. Pt stated When I thought about this, I did not act, I came to the ER instead . Pt upon assessment is very groggy/tired from medications given in ER. Pt signed all papers and answered all questions appropriately.
[2024-12-30] MEDS: nicotine 2 mg Gum BUCCAL (17:13)
--- NOTE | 2024-12-30 17:27 | PC.NURSE ---
Pt presents to nurses station asking this nurse is the doctor going to see me today and I have meds that I have not taken yet . Pt assured that his medications that Dr. Bowie approved of would be restarted and that the doctor would most likely see him in the morning to which pt responded Well I am glad I matter . Pt then stomped to his room and shouted FUCK . Pt now lingering in the hallway using pt phone on and off.
[2024-12-30] MEDS: diphenhydrAMINE 50 mg/mL SDV 1mL IM (18:15)
[2024-12-30] MEDS: haloperidol inj 5 mg/mL INJ 1 mL IM (18:15)
--- NOTE | 2024-12-30 18:27 | PC.NURSE ---
Behavior: Pt increasing agitation due to not receiving his daytime medications that he had missed and the doctor not restarting his Klonopin. Pt in room initially w/ staff due to pt yelling No one fucking cares about me and the doctor wont tamica see me till tomorrow and this is all bullshit and he isnt restarting my fucking medication for no reason . Pt educated on the policy that the doctor has 24 hours to see him and that his routine medications would be restarted for in the AM and he could receive his nighttime medications, however the doctor decided to not start his Klonopin at this time. The pt then stated I would like to leave and be transferred to [place] where I was because this is bullshit and the atleast over there the doctor wasn't discontinuing my medications for no reason . The pt was educated that why he was here, there was no possible way to transfer him to [place]. The pt then stormed past the staff / security into the hallway and went to the nurses station and then turned abruptly and ran towards the double doors by CSU and bod slammed into the door in an attempt to elope. Security was present and put the pt into a manual hold was another staff member called a code ten. This RN pulled medication up for the pt. The pt was put into restraints at 1813 and wheeled by security to the restraint room where this RN administered 2mg IM Ativan and 5mg IM Haldol into the left deltoid and the discharge door operator administered 50mg Benadryl into the right deltoid. One to one observation was started and vital signs were taken at this time. Pt laying calmly w/ rr even and unlabored.
[2024-12-30 18:28] VITALS: BP 121/72; PULSE 84; RESP 16; TEMP 36.7; O2SAT 97
--- NOTE | 2024-12-30 18:45 | W.PM.BREST ---
Face to Face: Restrn/Seclusion Events leading up to initiation: Verbalizing threat to self or others and Demonstrating self-destructive behavior (cutting, hitting hawkins etc.) Evaluation of patient's immediate situation: Alert and oriented, Signs of physical distress and Signs of psychological distress Patient reaction since intervention applied: Behaviors/threats have lessened, but still present Recent labs reviewed: Yes Review of medications: Yes Patient's current medical/behavioral condition: No new concerns since last ROS Need for restraint or seclusion is: Continued Attending notified: Attending completed assessment
[2024-12-30 18:48] VITALS: BP 122/71; PULSE 85; RESP 16; TEMP 36.7; O2SAT 96
[2024-12-30] MEDS: nicotine 4 mg lozenge MUCOUS MEM (19:37)
[2024-12-30] MEDS: BuSPIRONE 10 mg Tablet 15 MG PO (20:10)
[2024-12-30] MEDS: trazodone 100 mg Tablet 200 MG PO (20:11)
[2024-12-30] MEDS: quetiapine 100 mg Tablet 200 MG PO (20:11)
[2024-12-30 20:24] VITALS: BP 116/83; PULSE 92; RESP 18; TEMP 36.6; O2SAT 96
[2024-12-31 06:00] VITALS: BP 103/68; PULSE 69; RESP 16; TEMP 36.6; O2SAT 98
--- NOTE | 2024-12-31 06:10 | P.NPUHP_ITS ---
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 tobacco Smokeless tobacco details: from time to time Quit status (tobacco/nicotine): considering quitting Second hand smoke exposure: Yes Alcohol intake: never Substance/Drug Use: current Substance/Drug use frequency: daily Additional social history: Patient states he wants full code on 11/16/2024 Adopted: No Caregiver/support person: No Lives independently: Yes Household members: family Housing: House Marital status: Single Number of children: 0 Number of grandchildren: 0 Highest education level completed: Some College, No Degree service: No Current occupational status: other Details: filing for disability Pets and animals: Yes Pets & animals: cat(s) and dog(s) Leisure activites: music and other Leisure activities details: watching TV Sexually active: No Do you think of yourself as: Straight/Heterosexual Current gender identity: Male Patricia/Holiness: Other Special patricia needs: No Agree to transfusion: Yes Mental Status Exam 2 MSE Comments: This is a well-nourished, well-developed, white male, in hospital scrubs with adequate grooming and limited eye contact. No abnormal movements, except for mild psychomotor agitation. Cooperative with exam in mild to moderate distress. Speech was decreased rate and volume. Mood described as anxious; affect congruent. Thought process, organized. Thought content: patient endorses suicidal but denies homicidal ideation; patient denied delusions and none were noted; patient denied any auditory or visual hallucinations. Attention, concentration, and memory appeared intact, but none were formally tested. He was alert and oriented times three. Insight appears fair, but judgment is poor. Impulse control is impaired. Vitals/I&O/Wt Last Vital Signs Temp 98 F 12/30/24 20:24 Pulse 92 12/30/24 20:24 Resp 18 12/30/24 20:24 BP 116/83 12/30/24 20:24 Pulse Ox 96 12/30/24 20:24 O2 Del Method Room Air 12/30/24 20:24 12/30/24 12/30/24 12/31/24 14:59 22:59 06:59 Intake Total Balance Weight last 48 hrs Weight 95.254 kg Data NPU 12/30/24 09:32 12/30/24 09:32 A&P Assessment and plan (1) Major depressive disorder: (2) Borderline personality disorder: Unclear diagnosis (3) Suicidal ideations: (4) PTSD (post-traumatic stress disorder): (5) Drug overdose: (6) Bipolar disorder with depression: (7) Suicide attempt: (8) Panic attacks: (9) History of OCD (obsessive compulsive disorder): Plan 24-year-old white male extensive history of multiple inpatient hospitalizations with borderline personality traits, dysthymia, extremely poor coping skills and signficant attention seeking behavior who presents once again with suicidal ideation having recently been discharged from here as well as another facility and having overdosed on his Klonopin he received after the hospitalization here 1. Encourage individual, group and milieu therapy. 2. Recommend sober living treatment at the highest level of care to which the patient is willing to commit. 3. Continue q-15 minute checks for safety 4. Will simplify medication regimen, these medications have been unhelpful and patient requires more intense psychotherapy possibly in snf facility. Patient requires case management services, intense DBT services. 5. Restart outpatient medications versus medications from his recent hospitalization. Will not restart Klonopin. PDMP PDMP Reviewed: Not Reviewed Involuntary Hold Information 2 Hold Status: Legal Status: 96 Hour Hold Date/Time Hold Expires: 9 6^01/03/25@0945 96 Hour Hold: 96 Hour Involuntary Admission: Yes Other Hold: Hold End Date: 07/01/24 Attestations NPU 2 Medical Necessity Statement*: Inpatient hospitalization is medically necessary and the clinically appropriate intervention at this time. We will monitor medications and make changes as indicated. He will be in the hospital for over 2 midnights. The patient's likely length of stay 4-6 days. Coding Level of Care Code Acute Code for [facility] Fwd Diagnoses Major depressive disorder F32.9 Borderline personality disorder F60.3 Suicidal ideations R45.851 PTSD (post-traumatic stress disorder) F43.10 Drug overdose T50.902A Encounter type: initial encounter Injury intent: intentional self-harm Bipolar disorder with depression F31.9 Suicide attempt T14.91XA Panic attacks F41.0 History of OCD (obsessive compulsive disorder) Z86.59
[2024-12-31] MEDS: divalproex ER 500 mg Tablet (24H) 1000 MG PO (07:23)
[2024-12-31] MEDS: nicotine 4 mg lozenge MUCOUS MEM ×4 (07:23→20:02)
[2024-12-31] MEDS: naltrexone hcl 50 mg Tablet PO (07:24)
[2024-12-31] MEDS: BuSPIRONE 10 mg Tablet 15 MG PO ×3 (07:24→19:38)
[2024-12-31] MEDS: divalproex ER 250 mg Tablet (24H) PO (07:24)
[2024-12-31] MEDS: hyDROXYzine 25 mg Capsule 50 MG PO ×2 (07:24→19:02)
[2024-12-31] MEDS: venlafaxine ER (24HR) 75 mg Capsule PO (07:35)
[2024-12-31] MEDS: OLANZapine 5 mg ODT PO (07:58)
--- NOTE | 2024-12-31 07:59 | PC.NURSE ---
Pt. has been irritable this am. Pt. asked what medication he took this am twice. Signee informed pt. and is upset that he did not get his Klonopin and Thorazine. Shortly after pt. came to signee and stated he thought he was having withdrawals. Signee asked from what and he said from his Klonipin. Pt. stated he was shaking and cold. Signee did not see pt. visibly shaking. Signee sent Dr. Bowie a text message letting him know pt. believes he is having withdrawals.
--- NOTE | 2024-12-31 08:05 | PC.NURSE ---
Pt. is acting like he is going to fall. Pt. is walking backwards with his hands out to his side and stumbling backwards. Pt. was told to go sit on his bed.
--- NOTE | 2024-12-31 08:32 | PC.NURSE ---
Pt. started acting like he was going to fall again and signee asked pt. multiple times to go sit down and pt. refused and is now on the phone. Security was called in case there is a problem.
[2024-12-31] MEDS: acetaminophen 325 mg Tablet 650 MG PO (09:55)
[2024-12-31 14:00] VITALS: BP 120/73; PULSE 121; RESP 18; TEMP 36.8; O2SAT 100
[2024-12-31] MEDS: ibuprofen 600 mg Tablet PO (16:22)
--- NOTE | 2024-12-31 18:17 | PC.NURSE ---
Dr. lucero gave a verbal order for Thorazine 25mg PO TID.
[2024-12-31] MEDS: trazodone 100 mg Tablet 200 MG PO (19:38)
[2024-12-31] MEDS: quetiapine 100 mg Tablet 200 MG PO (19:38)
[2024-12-31 19:41] VITALS: BP 115/74; PULSE 96; RESP 17; TEMP 36.3; O2SAT 96
[2024-12-31] MEDS: chlorPROMazine 25 mg Tablet PO (20:08)
[2025-01-01 06:00] VITALS: BP 124/81; PULSE 86; RESP 16; TEMP 36.6; O2SAT 99
[2025-01-01] MEDS: nicotine 4 mg lozenge MUCOUS MEM ×4 (07:46→17:54)
[2025-01-01] MEDS: divalproex ER 250 mg Tablet (24H) PO (08:13)
[2025-01-01] MEDS: divalproex ER 500 mg Tablet (24H) 1000 MG PO (08:13)
[2025-01-01] MEDS: BuSPIRONE 10 mg Tablet 15 MG PO ×3 (08:14→20:51)
[2025-01-01] MEDS: venlafaxine ER (24HR) 75 mg Capsule PO (08:14)
[2025-01-01] MEDS: naltrexone hcl 50 mg Tablet PO (08:14)
[2025-01-01] MEDS: chlorPROMazine 25 mg Tablet PO ×3 (08:20→20:52)
[2025-01-01] MEDS: haloperidol 5 mg Tablet PO (09:35)
--- NOTE | 2025-01-01 10:26 | W.PM.NPUPNS ---
Subjective NPU Subjective: Patient presented today reporting that he is doing okay. He reports being super interested in this bed that might be available tomorrow at [facility]. He reports he feels ready to go and tackle that challenge. We discussed the fact that we had significant concerns about whether guardianship is more appropriate for him and concerns that if we discharged him to rehab that he would be in a position that he could leave whenever he wanted to and then we right back where we started. He has excepted the fact that the Klonopin will not be restarted. He reports that the Thorazine is helping with anxiety. We discussed his mother being open to establishing guardianship but that we would need to talk to her and come to a decision about whether he is actually ready for the next step of treatment or whether there are other things that need to be addressed before he can be do that. He denies any side effects to medications. Mental Status Exam MSE Comments: This is a well-nourished, well-developed, white male, in hospital scrubs with adequate grooming and limited eye contact. No abnormal movements, except for mild psychomotor agitation. Cooperative with exam in mild to moderate distress. Speech was decreased rate and volume. Mood described as anxious; affect congruent. Thought process, organized. Thought content: patient denied suicidal or homicidal ideation; patient denied delusions and none were noted; patient denied any auditory or visual hallucinations. Attention, concentration, and memory appeared intact, but none were formally tested. He was alert and oriented times three. Insight appears fair, but judgment is poor. Impulse control is impaired. Vitals/I&O/Wt Last Vital Signs Temp 97.8 F 01/01/25 06:00 Pulse 86 01/01/25 06:00 Resp 16 01/01/25 06:00 BP 124/81 01/01/25 06:00 Pulse Ox 99 01/01/25 06:00 O2 Del Method Room Air 01/01/25 06:00 Data NPU 12/30/24 09:32 12/30/24 09:32 A&P Assessment and plan (1) Major depressive disorder: (2) Borderline personality disorder: Unclear diagnosis (3) Suicidal ideations: (4) PTSD (post-traumatic stress disorder): (5) Drug overdose: (6) Bipolar disorder with depression: (7) Suicide attempt: (8) Panic attacks: (9) History of OCD (obsessive compulsive disorder): Plan 24-year-old white male extensive history of multiple inpatient hospitalizations with borderline personality traits, dysthymia, extremely poor coping skills and signficant attention seeking behavior who presents once again with suicidal ideation having recently been discharged from here as well as another facility and having overdosed on his Klonopin he received after the hospitalization here 1. Encourage individual, group and milieu therapy. 2. Recommend sober living treatment at the highest level of care to which the patient is willing to commit. Possibility for rehab bed sooner rather than later so we will need to address whether he is safe and/or ready for this option. 3. Continue q-15 minute checks for safety 4. Will simplify medication regimen, these medications have been unhelpful and patient requires more intense psychotherapy possibly in [facility] facility. Patient requires case management services, intense DBT services. 5. Restart outpatient medications versus medications from his recent hospitalization. Will not restart Klonopin. 6. Will speak with mother about possible guardianship and discuss whether he will be discharging to rehab as early as tomorrow is a reasonable plan given his recent patterns of hospitalization and poor self-control. PDMP PDMP Reviewed: Not Reviewed Involuntary Hold Information Hold Status: Legal Status: 96 Hour Hold Date/Time Hold Expires: 01/03/2025 @ 0945 96 Hour Hold: 96 Hour Involuntary Admission: Yes Other Hold: Hold End Date: 07/01/24 Attestations NPU Medical Necessity Statement*: Inpatient hospitalization is medically necessary and the clinically appropriate intervention at this time. We will monitor medications and make changes as indicated. The patient's likely length of stay 3-5 days. Except if guardianship is determined to be the plan and a 21-day hold is needed. Coding Level of Care Code Acute Code for [facility] Fwd Diagnoses Major depressive disorder F32.9 Borderline personality disorder F60.3 Suicidal ideations R45.851 PTSD (post-traumatic stress disorder) F43.10 Drug overdose T50.902A Encounter type: initial encounter Injury intent: intentional self-harm Bipolar disorder with depression F31.9 Suicide attempt T14.91XA Panic attacks F41.0 History of OCD (obsessive compulsive disorder) Z86.59
[2025-01-01] MEDS: OLANZapine 5 mg ODT PO ×2 (11:40→19:16)
[2025-01-01 12:04] VITALS: BP 112/70; PULSE 71; RESP 16; TEMP 36.8
[2025-01-01] MEDS: ibuprofen 600 mg Tablet PO (13:54)
[2025-01-01] MEDS: hyDROXYzine 25 mg Capsule 50 MG PO (19:16)
[2025-01-01 19:54] VITALS: BP 120/66; PULSE 107; RESP 20; TEMP 36.4; O2SAT 96
[2025-01-01] MEDS: nicotine 2 mg Gum BUCCAL (20:07)
--- NOTE | 2025-01-01 20:45 | PC.NURSE ---
Patient stopped me in the [place] to show me where he had been scratching his left forearm. The scratches appeared as he was vigorously scratching at an itch. Very superficial in nature. He denied suicidal intent but, eluded to self harming. He then Stated that he shouldn't have told me. I discussed with him the importance on notifying staff when or if these feelings occur so we can try to help him better cope.
[2025-01-01] MEDS: quetiapine 100 mg Tablet 200 MG PO (20:51)
[2025-01-01] MEDS: trazodone 100 mg Tablet 200 MG PO (20:52)
[2025-01-02 06:00] VITALS: BP 114/80; PULSE 77; RESP 18; TEMP 36.5; O2SAT 99
[2025-01-02] MEDS: chlorPROMazine 25 mg Tablet PO ×3 (08:27→21:32)
[2025-01-02] MEDS: BuSPIRONE 10 mg Tablet 15 MG PO ×3 (08:27→21:33)
[2025-01-02] MEDS: hyDROXYzine 25 mg Capsule 50 MG PO ×2 (08:28→21:33)
[2025-01-02] MEDS: naltrexone hcl 50 mg Tablet PO (08:28)
[2025-01-02] MEDS: venlafaxine ER (24HR) 75 mg Capsule PO (08:28)
[2025-01-02] MEDS: divalproex ER 500 mg Tablet (24H) 1000 MG PO (08:28)
[2025-01-02] MEDS: divalproex ER 250 mg Tablet (24H) PO (08:28)
[2025-01-02] MEDS: nicotine 2 mg Gum BUCCAL ×3 (08:55→21:40)
[2025-01-02] MEDS: OLANZapine 5 mg ODT PO (10:13)
[2025-01-02] MEDS: haloperidol 5 mg Tablet PO (11:09)
[2025-01-02] MEDS: propranolol 20 mg Tablet PO (11:09)
--- NOTE | 2025-01-02 12:11 | P.NPUPN_ITS ---
Subjective NPU 2 Subjective: Patient presented today reporting that things are going okay. He continued to be somewhat oblivious to his situation being upset because he was not allowed to go to [facility] today. We discussed the fact that we are still trying to determine what to do as far as guardianship and things of that nature given his continued mercurial behavior with suicide attempts the day of or after discharge. We discussed the agreeing that a rehab would be helpful but just understanding that he will not be court ordered to be there and would be able to leave at his leisure there are concerns about his readiness for such an undertaking. He denied any side effects of his medication. Mental Status Exam 2 MSE Comments: This is a well-nourished, well-developed, white male, in hospital scrubs with adequate grooming and limited eye contact. No abnormal movements, except for mild psychomotor agitation. Cooperative with exam in mild to moderate distress. Speech was decreased rate and volume. Mood described as anxious; affect congruent. Thought process, organized. Thought content: patient denied suicidal or homicidal ideation; patient denied delusions and none were noted; patient denied any auditory or visual hallucinations. Attention, concentration, and memory appeared intact, but none were formally tested. He was alert and oriented times three. Insight appears fair, but judgment is poor. Impulse control is impaired. Vitals/I&O/Wt Last Vital Signs Temp 97.7 F 01/02/25 06:00 Pulse 77 01/02/25 06:00 Resp 18 01/02/25 06:00 BP 114/80 01/02/25 06:00 Pulse Ox 99 01/02/25 06:00 O2 Del Method Room Air 01/02/25 06:00 Data NPU 12/30/24 09:32 12/30/24 09:32 A&P Assessment and plan (1) Major depressive disorder: (2) Borderline personality disorder: Unclear diagnosis (3) Suicidal ideations: (4) PTSD (post-traumatic stress disorder): (5) Drug overdose: (6) Bipolar disorder with depression: (7) Suicide attempt: (8) Panic attacks: (9) History of OCD (obsessive compulsive disorder): Plan 24-year-old white male extensive history of multiple inpatient hospitalizations with borderline personality traits, dysthymia, extremely poor coping skills and signficant attention seeking behavior who presents once again with suicidal ideation having recently been discharged from here as well as another facility and having overdosed on his Klonopin he received after the hospitalization here 1. Encourage individual, group and milieu therapy. 2. Recommend sober living treatment at the highest level of care to which the patient is willing to commit. Possibility for rehab bed sooner rather than later so we will need to address whether he is safe and/or ready for this option. 3. Continue q-15 minute checks for safety 4. Will simplify medication regimen, these medications have been unhelpful and patient requires more intense psychotherapy possibly in [facility] facility. Patient requires case management services, intense DBT services. 5. Restart outpatient medications versus medications from his recent hospitalization. Will not restart Klonopin. 6. Will speak with mother about possible guardianship and discuss whether he will be discharging to rehab as early as tomorrow is a reasonable plan given his recent patterns of hospitalization and poor self-control. PDMP PDMP Reviewed: Not Reviewed Involuntary Hold Information 2 Hold Status: Legal Status: 96 Hour Hold Date/Time Hold Expires: 01/03/2025 @ 0945 96 Hour Hold: 96 Hour Involuntary Admission: Yes Other Hold: Hold End Date: 07/01/24 Attestations NPU 2 Medical Necessity Statement*: Inpatient hospitalization is medically necessary and the clinically appropriate intervention at this time. We will monitor medications and make changes as indicated. The patient's likely length of stay 3-5 days. Except if guardianship is determined to be the plan and a 21-day hold is needed. Coding Level of Care Code Acute Code for [facility] Fwd Diagnoses Major depressive disorder F32.9 Borderline personality disorder F60.3 Suicidal ideations R45.851 PTSD (post-traumatic stress disorder) F43.10 Drug overdose T50.902A Encounter type: initial encounter Injury intent: intentional self-harm Bipolar disorder with depression F31.9 Suicide attempt T14.91XA Panic attacks F41.0 History of OCD (obsessive compulsive disorder) Z86.59
--- NOTE | 2025-01-02 13:24 | PC.NURSE ---
Pt. has been irritable all day and was talking with the about his stay and wanting to be DC today. Pt. began hitting the hawkins putting holes in the hawkins. A code 10 was called where security and staff had to go hands on with pt. Pt. was medicated and placed in restraints at that time. Dr. Bowie was present, warehouse administrator informed who came down to the unit, and forge shop supervisor was present.
[2025-01-02] MEDS: diphenhydrAMINE 50 mg/mL SDV 1mL IM (13:26)
[2025-01-02] MEDS: ziprasidone 20 mg/mL SDV (13:26)
[2025-01-02] MEDS: LORazepam 1 MG/0.5 ML injection 2 MG IM (13:26)
--- NOTE | 2025-01-02 13:38 | W.PM.BREST ---
Face to Face: Restrn/Seclusion Events leading up to initiation: Verbalizing threat to self or others, Demonstrating self-destructive behavior (cutting, hitting hawkins etc.) and Combative/Striking out at staff or others Evaluation of patient's immediate situation: Alert and oriented, Signs of physical distress and Signs of psychological distress Patient reaction since intervention applied: Behaviors/threats have lessened, but still present Recent labs reviewed: Yes Review of medications: Yes Patient's current medical/behavioral condition: New concerns (describe) (Right hand with redness and swelling. Will get three-view of hand.) Need for restraint or seclusion is: Continued Attending notified: Attending completed assessment
[2025-01-02 13:54] VITALS: BP 109/68; PULSE 82; RESP 18; TEMP 36.6; O2SAT 95
[2025-01-02] MEDS: nicotine 4 mg lozenge MUCOUS MEM ×2 (14:02→16:03)
--- NOTE | 2025-01-02 14:19 | XRR_ITS ---
PROCEDURE INFORMATION: Exam: XR Right Wrist Exam date and time: 01/02/2025 2:26 PM Age: 24 years old Clinical indication: Injury or trauma; Other: Punched a wall; Blunt trauma (contusions or hematomas); Wrist; Right; Additional info: Behavioral event right hand/ punched wall TECHNIQUE: Imaging protocol: Radiologic exam of the right wrist. Views: 3 or more views. COMPARISON: CR ([facility], ) 11/11/2024 5:53 PM FINDINGS: Bones/joints: Normal. Soft tissues: Normal. XR/XR wrist RT min 3V* [id number] IMPRESSION: No acute findings.
--- NOTE | 2025-01-02 14:21 | XRR_ITS ---
PROCEDURE INFORMATION: Exam: XR Right Hand Exam date and time: 01/02/2025 2:26 PM Age: 24 years old Clinical indication: Injury or trauma; Other: Punch a wall; Blunt trauma (contusions or hematomas); Hand; Right; Additional info: Behavioral event right hand/ punched wall TECHNIQUE: Imaging protocol: Radiologic exam of the right hand. Views: 3 or more views. COMPARISON: CR ([facility], ) 11/11/2024 5:53 PM FINDINGS: Bones/joints: Normal. Soft tissues: Normal. XR/XR hand RT min 3V* [id number] IMPRESSION: No acute findings.
[2025-01-02 20:13] VITALS: BP 112/66; PULSE 71; RESP 17; TEMP 36.5; O2SAT 96
[2025-01-02] MEDS: trazodone 100 mg Tablet 200 MG PO (21:32)
[2025-01-02] MEDS: quetiapine 100 mg Tablet 200 MG PO (21:33)
[2025-01-03 06:00] VITALS: BP 129/85; PULSE 68; RESP 16; TEMP 36.5; O2SAT 98
[2025-01-03] MEDS: BuSPIRONE 10 mg Tablet 15 MG PO ×3 (08:07→19:37)
[2025-01-03] MEDS: nicotine 4 mg lozenge MUCOUS MEM ×4 (08:07→19:00)
[2025-01-03] MEDS: divalproex ER 250 mg Tablet (24H) PO (08:07)
[2025-01-03] MEDS: chlorPROMazine 25 mg Tablet PO ×3 (08:07→19:36)
[2025-01-03] MEDS: venlafaxine ER (24HR) 75 mg Capsule PO (08:07)
[2025-01-03] MEDS: naltrexone hcl 50 mg Tablet PO (08:07)
[2025-01-03] MEDS: divalproex ER 500 mg Tablet (24H) 1000 MG PO (08:08)
[2025-01-03] MEDS: ibuprofen 600 mg Tablet PO (09:04)
[2025-01-03] MEDS: hyDROXYzine 25 mg Capsule 50 MG PO (09:38)
[2025-01-03 14:00] VITALS: BP 117/74; PULSE 65; RESP 18; TEMP 36.4; O2SAT 96
--- NOTE | 2025-01-03 15:58 | P.NPUPN_ITS ---
Subjective NPU 2 Subjective: Patient presented today reporting that things are going okay. He is accepting of days he will have to stay leading up to his bed date on Monday. We discussed in experience that he is having this likely a vagal vagal response when he rises quickly and then stretches his arms above his head. We discussed the importance of not getting up so quickly and definitely not immediately stretching his hand over his head pushing up on his neck likely inducing that pressure response. Otherwise he is taking his medication and denied any side effects to them. Mental Status Exam 2 MSE Comments: This is a well-nourished, well-developed, white male, in hospital scrubs with adequate grooming and limited eye contact. No abnormal movements, except for mild psychomotor agitation. Cooperative with exam in mild to moderate distress. Speech was decreased rate and volume. Mood described as anxious; affect congruent. Thought process, organized. Thought content: patient denied suicidal or homicidal ideation; patient denied delusions and none were noted; patient denied any auditory or visual hallucinations. Attention, concentration, and memory appeared intact, but none were formally tested. He was alert and oriented times three. Insight appears fair, but judgment is poor. Impulse control is impaired. Vitals/I&O/Wt Last Vital Signs Temp 97.6 F 01/03/25 14:00 Pulse 65 01/03/25 14:00 Resp 18 01/03/25 14:00 BP 117/74 01/03/25 14:00 Pulse Ox 96 01/03/25 14:00 O2 Del Method Room Air 01/03/25 06:00 Data NPU 12/30/24 09:32 12/30/24 09:32 A&P Assessment and plan (1) Major depressive disorder: (2) Borderline personality disorder: Unclear diagnosis (3) Suicidal ideations: (4) PTSD (post-traumatic stress disorder): (5) Drug overdose: (6) Bipolar disorder with depression: (7) Suicide attempt: (8) Panic attacks: (9) History of OCD (obsessive compulsive disorder): Plan 24-year-old white male extensive history of multiple inpatient hospitalizations with borderline personality traits, dysthymia, extremely poor coping skills and signficant attention seeking behavior who presents once again with suicidal ideation having recently been discharged from here as well as another facility and having overdosed on his Klonopin he received after the hospitalization here 1. Encourage individual, group and milieu therapy. 2. Recommend sober living treatment at the highest level of care to which the patient is willing to commit. Possibility for rehab bed sooner rather than later so we will need to address whether he is safe and/or ready for this option. 3. Continue q-15 minute checks for safety 4. Will simplify medication regimen, these medications have been unhelpful and patient requires more intense psychotherapy possibly in residential facility. Patient requires case management services, intense DBT services. 5. Restart outpatient medications versus medications from his recent hospitalization. Will not restart Klonopin. 6. Will speak with mother about possible guardianship and discuss whether he will be discharging to rehab as early as tomorrow is a reasonable plan given his recent patterns of hospitalization and poor self-control. Patient has a bed date for Monday and we filed for 21-day hold. Have plan for discharge on Monday. PDMP PDMP Reviewed: Not Reviewed Involuntary Hold Information 2 Hold Status: Legal Status: 96 Hour Hold Date/Time Hold Expires: 01/03/2025 @ 0945 96 Hour Hold: 96 Hour Involuntary Admission: Yes Other Hold: Hold End Date: 07/01/24 Attestations NPU 2 Medical Necessity Statement*: Inpatient hospitalization is medically necessary and the clinically appropriate intervention at this time. We will monitor medications and make changes as indicated. The patient's likely length of stay 4 days. Except if guardianship is determined to be the plan and a 21-day hold is needed. Coding Level of Care Code Acute Code for [facility] Fwd Diagnoses Major depressive disorder F32.9 Borderline personality disorder F60.3 Suicidal ideations R45.851 PTSD (post-traumatic stress disorder) F43.10 Drug overdose T50.902A Encounter type: initial encounter Injury intent: intentional self-harm Bipolar disorder with depression F31.9 Suicide attempt T14.91XA Panic attacks F41.0 History of OCD (obsessive compulsive disorder) Z86.59
[2025-01-03 16:41] VITALS: BP 118/73; PULSE 80; RESP 18; TEMP 36.3; O2SAT 99
--- NOTE | 2025-01-03 16:44 | PC.NURSE ---
Pt was standing up at the nurses station when he states he blacked out collapsed down, hit chin on nurses station edge and feel back into the floor. There is a red spot on his chin. None of his teeth were effected. Pt reassured he is okay and no major injury. Dr. Bowie was on the unit and he was notified. Pt was given an ice pack to place on his chin.
[2025-01-03] MEDS: trazodone 100 mg Tablet 200 MG PO (19:36)
[2025-01-03] MEDS: quetiapine 100 mg Tablet 200 MG PO (19:36)
[2025-01-03] MEDS: acetaminophen 325 mg Tablet 650 MG PO (19:37)
[2025-01-03 22:00] VITALS: BP 107/68; PULSE 101; RESP 17; TEMP 36.5; O2SAT 94
[2025-01-04 06:00] VITALS: BP 121/75; PULSE 91; RESP 17; TEMP 36.7; O2SAT 99
[2025-01-04] MEDS: BuSPIRONE 10 mg Tablet 15 MG PO ×2 (08:13→14:46)
[2025-01-04] MEDS: naltrexone hcl 50 mg Tablet PO (08:13)
[2025-01-04] MEDS: venlafaxine ER (24HR) 75 mg Capsule PO (08:13)
[2025-01-04] MEDS: divalproex ER 250 mg Tablet (24H) PO (08:13)
[2025-01-04] MEDS: chlorPROMazine 25 mg Tablet PO ×3 (08:13→20:02)
[2025-01-04] MEDS: divalproex ER 500 mg Tablet (24H) 1000 MG PO (08:13)
[2025-01-04] MEDS: nicotine 4 mg lozenge MUCOUS MEM ×4 (08:14→15:00)
[2025-01-04] MEDS: hyDROXYzine 25 mg Capsule 50 MG PO (13:11)
[2025-01-04] MEDS: OLANZapine 5 mg ODT PO (13:54)
[2025-01-04 14:00] VITALS: BP 116/74; PULSE 97; RESP 16; TEMP 36.4; O2SAT 97
[2025-01-04] MEDS: BuSPIRONE 10 mg Tablet 5 MG PO (17:05)
--- NOTE | 2025-01-04 17:24 | PC.NURSE ---
Dr. Bowie gave the v/o for pt that have his Buspar increased to 20mg. I gave him the 5mg difference from his 1500 dose.
--- NOTE | 2025-01-04 18:28 | W.PM.NPUPNS ---
Subjective NPU Subjective: Patient presented today reporting that he is doing all right. We discussed the importance of him maintaining his sobriety and he is very focused on going to sober living treatment on Monday. We discussed continuing his current medications and recommending that he have appropriate follow-up after he exits rehab as well. He endorsed being anxious and we talked about different strategies to identify what is driving the anxiety and dealing with that from a more cognitive approach and not a emotional perspective. He denied any side effects of his medication. Mental Status Exam MSE Comments: This is a well-nourished, well-developed, white male, in hospital scrubs with adequate grooming and limited eye contact. No abnormal movements, except for mild psychomotor agitation. Cooperative with exam in mild to moderate distress. Speech was decreased rate and volume. Mood described as anxious; affect congruent. Thought process, organized. Thought content: patient denied suicidal or homicidal ideation; patient denied delusions and none were noted; patient denied any auditory or visual hallucinations. Attention, concentration, and memory appeared intact, but none were formally tested. He was alert and oriented times three. Insight appears fair, but judgment is poor. Impulse control is impaired. Vitals/I&O/Wt Last Vital Signs Temp 97.6 F 01/04/25 20:35 Pulse 75 01/04/25 20:35 Resp 18 01/04/25 20:35 BP 105/67 01/04/25 20:35 Pulse Ox 98 01/04/25 20:35 O2 Del Method Room Air 01/04/25 20:35 Weight last 48 hrs Weight 97.522 kg Data NPU 12/30/24 09:32 12/30/24 09:32 A&P Assessment and plan (1) Major depressive disorder: (2) Borderline personality disorder: Unclear diagnosis (3) Suicidal ideations: (4) PTSD (post-traumatic stress disorder): (5) Drug overdose: (6) Bipolar disorder with depression: (7) Suicide attempt: (8) Panic attacks: (9) History of OCD (obsessive compulsive disorder): Plan 24-year-old white male extensive history of multiple inpatient hospitalizations with borderline personality traits, dysthymia, extremely poor coping skills and signficant attention seeking behavior who presents once again with suicidal ideation having recently been discharged from here as well as another facility and having overdosed on his Klonopin he received after the hospitalization here 1. Encourage individual, group and milieu therapy. 2. Recommend sober living treatment at the highest level of care to which the patient is willing to commit. Possibility for rehab bed sooner rather than later so we will need to address whether he is safe and/or ready for this option. 3. Continue q-15 minute checks for safety 4. Will simplify medication regimen, these medications have been unhelpful and patient requires more intense psychotherapy possibly in [facility] facility. Patient requires case management services, intense DBT services. 5. Restart outpatient medications versus medications from his recent hospitalization. Will not restart Klonopin. 6. Will speak with mother about possible guardianship and discuss whether he will be discharging to rehab as early as tomorrow is a reasonable plan given his recent patterns of hospitalization and poor self-control. Patient has a bed date for Monday and we filed for 21-day hold. Have plan for discharge on Monday. PDMP PDMP Reviewed: Not Reviewed Involuntary Hold Information Hold Status: Legal Status: 96 Hour Hold Date/Time Hold Expires: 01/03/2025 @ 0945 96 Hour Hold: 96 Hour Involuntary Admission: Yes Other Hold: Hold End Date: 07/01/24 Attestations NPU Medical Necessity Statement*: Inpatient hospitalization is medically necessary and the clinically appropriate intervention at this time. We will monitor medications and make changes as indicated. The patient's likely length of stay 4 days. Except if guardianship is determined to be the plan and a 21-day hold is needed. Coding Level of Care Code Acute Code for [facility] Fwd Diagnoses Major depressive disorder F32.9 Borderline personality disorder F60.3 Suicidal ideations R45.851 PTSD (post-traumatic stress disorder) F43.10 Drug overdose T50.902A Encounter type: initial encounter Injury intent: intentional self-harm Bipolar disorder with depression F31.9 Suicide attempt T14.91XA Panic attacks F41.0 History of OCD (obsessive compulsive disorder) Z86.59
[2025-01-04] MEDS: BuSPIRONE 10 mg Tablet 20 MG PO (20:01)
[2025-01-04] MEDS: trazodone 100 mg Tablet 200 MG PO (20:02)
[2025-01-04 20:35] VITALS: BP 105/67; PULSE 75; RESP 18; TEMP 36.4; O2SAT 98
[2025-01-04] MEDS: quetiapine 100 mg Tablet 200 MG PO (23:00)
[2025-01-05 00:41] VITALS: BMI 31.7
[2025-01-05] MEDS: OLANZapine 5 mg ODT PO (04:04)
--- NOTE | 2025-01-05 06:07 | PC.NURSE ---
vs not completed per charge nurse resp 16
[2025-01-05] MEDS: BuSPIRONE 10 mg Tablet 20 MG PO ×3 (08:52→20:57)
[2025-01-05] MEDS: venlafaxine ER (24HR) 75 mg Capsule PO (08:52)
[2025-01-05] MEDS: divalproex ER 500 mg Tablet (24H) 1000 MG PO (08:52)
[2025-01-05] MEDS: chlorPROMazine 25 mg Tablet PO ×3 (08:52→20:57)
[2025-01-05] MEDS: naltrexone hcl 50 mg Tablet PO (08:52)
[2025-01-05] MEDS: divalproex ER 250 mg Tablet (24H) PO (08:52)
[2025-01-05] MEDS: nicotine 4 mg lozenge MUCOUS MEM ×5 (08:58→19:36)
[2025-01-05 13:49] VITALS: BP 103/66; PULSE 75; RESP 16; TEMP 36.9; O2SAT 96
--- NOTE | 2025-01-05 18:09 | P.NPUPN_ITS ---
Subjective NPU 2 Subjective: Patient presented today reporting that he is doing all right. He discussed concerns about how he is going to be able to be discharged on Monday at 7 in the morning or whenever the treatment team had set up his pickup by the sober living facility. We discussed in the situations that we prepare the discharge the day before so tomorrow and that all his medications and everything will be in place so that when the ride arrives here everything will be in acceptable fashion. That made him feel better and he denied any side effects to his medication. Mental Status Exam 2 MSE Comments: This is a well-nourished, well-developed, white male, in hospital scrubs with adequate grooming and limited eye contact. No abnormal movements. Cooperative with exam in mild distress. Speech was decreased rate and volume. Mood described as anxious; affect congruent. Thought process, organized. Thought content: patient denied suicidal or homicidal ideation; patient denied delusions and none were noted; patient denied any auditory or visual hallucinations. Attention, concentration, and memory appeared intact, but none were formally tested. He was alert and oriented times three. Insight appears fair, but judgment is poor. Impulse control is impaired. Vitals/I&O/Wt Last Vital Signs Temp 98.0 F 01/05/25 20:56 Pulse 96 01/05/25 20:56 Resp 18 01/05/25 20:56 BP 116/75 01/05/25 20:56 Pulse Ox 96 01/05/25 20:56 O2 Del Method Room Air 01/05/25 20:56 Weight last 48 hrs Weight 97.522 kg Data NPU 12/30/24 09:32 12/30/24 09:32 A&P Assessment and plan (1) Major depressive disorder: (2) Borderline personality disorder: Unclear diagnosis (3) Suicidal ideations: (4) PTSD (post-traumatic stress disorder): (5) Drug overdose: (6) Bipolar disorder with depression: (7) Suicide attempt: (8) Panic attacks: (9) History of OCD (obsessive compulsive disorder): Plan 24-year-old white male extensive history of multiple inpatient hospitalizations with borderline personality traits, dysthymia, extremely poor coping skills and signficant attention seeking behavior who presents once again with suicidal ideation having recently been discharged from here as well as another facility and having overdosed on his Klonopin he received after the hospitalization here 1. Encourage individual, group and milieu therapy. 2. Recommend sober living treatment at the highest level of care to which the patient is willing to commit. Possibility for rehab bed sooner rather than later so we will need to address whether he is safe and/or ready for this option. 3. Continue q-15 minute checks for safety 4. Will simplify medication regimen, these medications have been unhelpful and patient requires more intense psychotherapy possibly in [facility] facility. Patient requires case management services, intense DBT services. 5. Restart outpatient medications versus medications from his recent hospitalization. Will not restart Klonopin. 6. Will speak with mother about possible guardianship and discuss whether he will be discharging to rehab as early as tomorrow is a reasonable plan given his recent patterns of hospitalization and poor self-control. Patient has a bed date for Monday and we filed for 21-day hold. Have plan for discharge on Monday. PDMP PDMP Reviewed: Not Reviewed Involuntary Hold Information 2 Hold Status: Legal Status: 96 Hour Hold Date/Time Hold Expires: 01/03/2025 @ 0945 96 Hour Hold: 96 Hour Involuntary Admission: Yes Other Hold: Hold End Date: 07/01/24 Attestations NPU 2 Medical Necessity Statement*: Inpatient hospitalization is medically necessary and the clinically appropriate intervention at this time. We will monitor medications and make changes as indicated. The patient's likely length of stay 2 days. Coding Level of Care Code Acute Code for [facility] Fwd Diagnoses Major depressive disorder F32.9 Borderline personality disorder F60.3 Suicidal ideations R45.851 PTSD (post-traumatic stress disorder) F43.10 Drug overdose T50.902A Encounter type: initial encounter Injury intent: intentional self-harm Bipolar disorder with depression F31.9 Suicide attempt T14.91XA Panic attacks F41.0 History of OCD (obsessive compulsive disorder) Z86.59
[2025-01-05] MEDS: acetaminophen 325 mg Tablet 650 MG PO (18:18)
[2025-01-05] MEDS: hyDROXYzine 25 mg Capsule 50 MG PO (19:23)
[2025-01-05 20:56] VITALS: BP 116/75; PULSE 96; RESP 18; TEMP 36.7; O2SAT 96
[2025-01-05] MEDS: trazodone 100 mg Tablet 200 MG PO (20:57)
[2025-01-05] MEDS: quetiapine 100 mg Tablet 200 MG PO (20:57)
[2025-01-05] MEDS: ibuprofen 600 mg Tablet PO (20:58)
[2025-01-06 06:00] VITALS: BP 113/73; PULSE 87; RESP 17; TEMP 36.5; O2SAT 99
[2025-01-06] MEDS: BuSPIRONE 10 mg Tablet 20 MG PO ×3 (07:54→20:22)
[2025-01-06] MEDS: venlafaxine ER (24HR) 75 mg Capsule PO (07:55)
[2025-01-06] MEDS: chlorPROMazine 25 mg Tablet PO ×3 (07:55→20:23)
[2025-01-06] MEDS: hyDROXYzine 25 mg Capsule 50 MG PO (07:55)
[2025-01-06] MEDS: divalproex ER 500 mg Tablet (24H) 1000 MG PO (07:55)
[2025-01-06] MEDS: naltrexone hcl 50 mg Tablet PO (07:55)
[2025-01-06] MEDS: divalproex ER 250 mg Tablet (24H) PO (07:55)
[2025-01-06] MEDS: nicotine 4 mg lozenge MUCOUS MEM ×4 (08:15→19:33)
[2025-01-06] MEDS: propranolol 20 mg Tablet PO (09:10)
[2025-01-06] MEDS: nicotine 21 mg Patch 1 PATCH TRANSDERMA (10:00)
--- NOTE | 2025-01-06 11:31 | P.NPUPN_ITS ---
Subjective NPU 2 Subjective: Patient presented today reporting that things are going okay. He was fairly anxious per staff reports essentially spending the day asking questions about when he would leave, how he would make sure that he would be able to leave at that time since it is so early, worried about getting his medications which most of them were done by the early evening and some medications were unavailable because he had just gotten them and so he and the nurses were working with his family to get those medications brought in so that he would have them at discharge. The plan continue to have him discharged first thing in the morning he would be picked up by a ride around 630 or so. He denied any side effects to his medications. Mental Status Exam 2 MSE Comments: This is a well-nourished, well-developed, white male, in hospital scrubs with adequate grooming and limited eye contact. No abnormal movements. Cooperative with exam in mild distress. Speech was decreased rate and volume. Mood described as anxious; affect congruent. Thought process, organized. Thought content: patient denied suicidal or homicidal ideation; patient denied delusions and none were noted; patient denied any auditory or visual hallucinations. Attention, concentration, and memory appeared intact, but none were formally tested. He was alert and oriented times three. Insight appears fair, but judgment is poor. Impulse control is impaired. Vitals/I&O/Wt Last Vital Signs Temp 97.7 F 01/06/25 06:00 Pulse 87 01/06/25 06:00 Resp 17 01/06/25 06:00 BP 113/73 01/06/25 06:00 Pulse Ox 99 01/06/25 06:00 O2 Del Method Room Air 01/06/25 06:00 Weight last 48 hrs Weight 97.522 kg Data NPU 12/30/24 09:32 12/30/24 09:32 A&P Assessment and plan (1) Major depressive disorder: (2) Borderline personality disorder: (3) Suicidal ideations: (4) PTSD (post-traumatic stress disorder): (5) Drug overdose: (6) Bipolar disorder with depression: (7) Suicide attempt: (8) Panic attacks: (9) History of OCD (obsessive compulsive disorder): Plan 24-year-old white male extensive history of multiple inpatient hospitalizations with borderline personality traits, dysthymia, extremely poor coping skills and signficant attention seeking behavior who presents once again with suicidal ideation having recently been discharged from here as well as another facility and having overdosed on his Klonopin he received after the hospitalization here 1. Encourage individual, group and milieu therapy. 2. Recommend sober living treatment at the highest level of care to which the patient is willing to commit. Possibility for rehab bed sooner rather than later so we will need to address whether he is safe and/or ready for this option. 3. Continue q-15 minute checks for safety 4. Will simplify medication regimen, these medications have been unhelpful and patient requires more intense psychotherapy possibly in intermediate facility. Patient requires case management services, intense DBT services. 5. Restart outpatient medications versus medications from his recent hospitalization. Will not restart Klonopin. 6. Will speak with mother about possible guardianship and discuss whether he will be discharging to rehab as early as tomorrow is a reasonable plan given his recent patterns of hospitalization and poor self-control. Patient has a bed date for Monday and we filed for 21-day hold. Have plan for discharge in the morning. PDMP PDMP Reviewed: Not Reviewed Involuntary Hold Information 2 Hold Status: Legal Status: 96 Hour Hold Date/Time Hold Expires: 01/03/2025 @ 0945 96 Hour Hold: 96 Hour Involuntary Admission: Yes Other Hold: Hold End Date: 07/01/24 Attestations NPU 2 Medical Necessity Statement*: Inpatient hospitalization is medically necessary and the clinically appropriate intervention at this time. We will monitor medications and make changes as indicated. Discharge tomorrow morning. Coding Level of Care Code Acute Code for [facility] Fwd Diagnoses Major depressive disorder F32.9 Borderline personality disorder F60.3 Suicidal ideations R45.851 PTSD (post-traumatic stress disorder) F43.10 Drug overdose T50.902A Encounter type: initial encounter Injury intent: intentional self-harm Bipolar disorder with depression F31.9 Suicide attempt T14.91XA Panic attacks F41.0 History of OCD (obsessive compulsive disorder) Z86.59
[2025-01-06] MEDS: OLANZapine 5 mg ODT PO (12:19)
--- NOTE | 2025-01-06 13:11 | PC.NURSE ---
removed nicotine patch from pt right outer arm.
[2025-01-06 14:00] VITALS: BP 113/75; PULSE 80; RESP 16; TEMP 36.4; O2SAT 95
--- NOTE | 2025-01-06 17:44 | PC.NURSE ---
Signee called pt.'s mother requesting she bring in pt.'s Depakote, Thorazine, Seroquel d/t it is too soon to be filled by insurance. The mother is going to call the sister and see if she can bring the medication in tonight.
[2025-01-06 19:39] VITALS: BP 131/80; PULSE 67; RESP 17; TEMP 36.5; O2SAT 97
[2025-01-06] MEDS: quetiapine 100 mg Tablet 200 MG PO (20:22)
[2025-01-06] MEDS: trazodone 100 mg Tablet 200 MG PO (20:22)
[2025-01-07 06:00] VITALS: BP 131/79; PULSE 80; RESP 16; TEMP 36.3; O2SAT 99
[2025-01-07 06:09] VITALS: BP 131/79; PULSE 80; RESP 16; TEMP 36.3; O2SAT 99
--- NOTE | 2025-01-07 06:32 | W.PM.NPUDCS ---
Diagnoses at Discharge Discharge Diagnosis (1) Major depressive disorder: Status: Acute (2) Borderline personality disorder: Status: Acute (3) Suicidal ideations: Status: Resolved (4) PTSD (post-traumatic stress disorder): Status: Chronic (5) Drug overdose: Status: Resolved Qualifiers: Encounter type: initial encounter Injury intent: intentional self-harm Qualified Code(s): T50.902A - Poisoning by unspecified drugs, medicaments and biological substances, intentional self-harm, initial encounter (6) Bipolar disorder with depression: Status: Deleted (7) Suicide attempt: Status: Resolved (8) Panic attacks: Status: Acute (9) History of OCD (obsessive compulsive disorder): Status: Inactive Reason for Visit Reason for Visit: Si Involuntary Hold Information Hold Status: Legal Status: 96 Hour Hold Date/Time Hold Expires: 01/03/2025 @ 0945 96 Hour Hold: 96 Hour Involuntary Admission: Yes Other Hold: Hold End Date: 07/01/24 Mental Status Exam MSE Comments: This is a well-nourished, well-developed, white male, in hospital scrubs with adequate grooming and limited eye contact. No abnormal movements. Cooperative with exam in mild distress. Speech was decreased rate and volume. Mood described as anxious; affect congruent. Thought process, organized. Thought content: patient denied suicidal or homicidal ideation; patient denied delusions and none were noted; patient denied any auditory or visual hallucinations. Attention, concentration, and memory appeared intact, but none were formally tested. He was alert and oriented times three. Insight appears fair, but judgment is poor. Impulse control is impaired. Discharge Data Studies Completed and Pending: Completed Studies During Hospitalization Category Date Time Status XR hand RT min 3V * [id number] Stat Exams 01/02/25 14:21 Completed XR wrist RT min 3 V* [id number] Stat Exams 01/02/25 14:19 Completed Radiology Impressions Wrist X-Ray 01/02/25 14:19 IMPRESSION: No acute findings. Hand X-Ray 01/02/25 14:21 IMPRESSION: No acute findings. Laboratory Results WBC 9.80 10^3/uL (3.2 9-11.43) 12/30/24 09:32 RBC 4.72 10^6/uL (3.8 5-5.65) 12/30/24 09:32 Hgb 14.60 g/dL (11.27 -16.99) 12/30/24 09:32 Hct 43.6 % (37-53) 12/30/24 09:32 MCV 92.4 fl (82-101) 12/30/24 09:32 MCH 30.9 pg (27-33) 12/30/24 09:32 MCHC 33.5 g/dL (30-55) 12/30/24 09:32 RDW 12.7 % (12.1-15.1 ) 12/30/24 09:32 Plt Count 299 10^3/cmm (157 -399) 12/30/24 09:32 MPV 9.1 fL (7.4-10.4) 12/30/24 09:32 Neut % (Auto) 67.0 % 12/30/24 09:32 Lymph % (Auto) 21.8 % 12/30/24 09:32 [place] % (Auto) 6.4 % 12/30/24:32 Eos % (Auto) 4.0 % 12/30/24:32 Baso % (Auto) 0.5 % 12/30/24 09:32 Neut # (Auto) 6.56 10^3/uL (1.8 -7.7) 12/30/24 09:32 Lymph # (Auto) 2.1 10^3/uL (0.8- 4.8) 12/30/24 09:32 [place] # (Auto) 0.6 10^3/uL (0.2- 0.9) 12/30/24 09:32 Eos # (Auto) 0.4 10^3/uL (0.0- 0.8) 12/30/24:32 Baso # (Auto) 0.1 10^3/uL (0.0- 0.1) 12/30/24 09:32 Nucleated RBC % (a uto) 0 % 12/30/24:32 Nucleated RBCs # 0.0 /100WBC 12/30/24 09:32 Sodium 141 mmol/L (136-1 45) 12/30/24 09:32 Potassium 4.4 mmol/L (3.5-5 .1) 12/30/24 09:32 Chloride 106 mmol/L (98-10 7) 12/30/24 09:32 Carbon Dioxide 22 mmol/L (22-29) 12/30/24 09:32 Anion Gap 17.4 (5-19) 12/30/24 09:32 BUN 11 mg/dL (6-20) 12/30/24 09:32 Creatinine 0.8 mg/dL (0.7-1. 2) 12/30/24 09:32 GFR Calculation 120.9 mL/min (90- 130) 12/30/24 09:32 Glucose 82 mg/dL (65-115) 12/30/24 09:32 Calculated Osmolal ity 290 mOsm/kg (285- 295) 12/30/24 09:32 Calcium 9.5 mg/dL (8.5-10 .5) 12/30/24 09:32 Total Bilirubin 0.2 mg/dL (0.15-1 .2) 12/30/24 09:32 AST 18 U/L (0-40) 12/30/24 09:32 ALT 17 U/L (0-41) 12/30/24 09:32 Alkaline Phosphata se 72 U/L (40-130) 12/30/24 09:32 Total Protein 7.4 g/dL (6.6-8.7 ) 12/30/24 09:32 Albumin 4.6 g/dL (3.5-5.2 ) 12/30/24 09:32 Globulin 2.8 g/dL (1.3-4.6 ) 12/30/24 09:32 Urine Color Yellow (Yellow) 12/30/24 10:13 Urine Appearance Clear (CLEAR) 12/30/24 10:13 Urine pH 6.5 (5-7) 12/30/24 10:13 Ur Specific Gravit y 1.020 (1.005-1.0 30) 12/30/24 10:13 Urine Protein Negative (Negati ve) 12/30/24 10:13 Urine Glucose (UA) Negative (Normal ) 12/30/24 10:13 Urine Ketones Trace (Negative) 12/30/24 10:13 Urine Blood Negative (Negati ve) 12/30/24 10:13 Urine Nitrate Negative (Negati ve) 12/30/24 10:13 Urine Bilirubin Negative (Negati ve) 12/30/24 10:13 Urine Urobilinogen 1.0 mg/dL (Negati ve) 12/30/24 10:13 Ur Leukocyte Gwen ase Negative (Negati ve) 12/30/24 10:13 Urine RBC 0-2 /hpf (0-2) 12/30/24 10:13 Urine WBC 0-5 /hpf (0-5) 12/30/24 10:13 Ur Squamous Epith Cells 0-5 /hpf (0-5) 12/30/24 10:13 Amorphous Sediment Not Reportable 12/30/24 10:13 Urine Bacteria None seen /hpf (N ONE) 12/30/24 10:13 Hyaline Casts 2.46 /lpf 12/30/24 10:13 Salicylates < 0.3 mg/dL (3-10 ) L 12/30/24 09:32 Urine Opiates Scre en Negative ng/mL (N egative) 12/30/24 10:13 Acetaminophen < 5.0 ug/mL (10-3 0) L 12/30/24 09:32 Ur Barbiturates Sc reen Negative ng/mL (N egative) 12/30/24 10:13 Ur Phencyclidine S crn Negative ng/mL (N egative) 12/30/24 10:13 Ur Amphetamines Sc reen Negative ng/mL (N egative) 12/30/24 10:13 U Benzodiazepines Scrn Positive ng/mL (N egative) H 12/30/24 10:13 Urine Cocaine Scre en Negative ng/mL (N egative) 12/30/24 10:13 U Marijuana (THC) Screen Positive ng/mL (N egative) H 12/30/24 10:13 Ethyl Alcohol < 10 mg/dL (0-10) 12/30/24 09:32 Vitals: Last Vital Signs Temp 97.4 F L 01/07/25 06:09 Pulse 80 01/07/25 06:09 Resp 16 01/07/25 06:09 BP 131/79 01/07/25 06:09 Pulse Ox 99 01/07/25 06:09 O2 Del Method Room Air 01/07/25 06:00 Discharge Plan Discharge Patient Disposition: Home Condition: Stable Prescriptions: New buspirone 10 mg Tablet 20 mg PO TID 30 Days Qty: 180 1RF chlorpromazine 25 mg Tablet 25 mg PO TID 30 Days Qty: 90 1RF Continued nicotine 21 mg/24 hr patch 24 hour 1 patch topical DAILY venlafaxine 75 mg capsule,extended release 24hr 75 mg PO DAILY 30 Days Qty: 30 1RF naltrexone 50 mg tablet 50 mg PO DAILY Qty: 30 1RF quetiapine 200 mg tablet 200 mg PO BEDTIME 30 Days Qty: 30 1RF hydroxyzine HCl 50 mg tablet 50 mg PO BID PRN (Reason: anxiety) Qty: 60 1RF trazodone 100 mg tablet 200 mg PO BEDTIME PRN (Reason: Insomnia) 30 Days Qty: 60 1RF divalproex 500 mg Tablet Extended Release 24 Hr 1,000 mg PO .AM 30 Days Qty: 60 1RF Rx Instructions: along with 250mg [id number] daily propranolol 20 mg tablet 20 mg PO BID PRN (Reason: anxiety) Qty: 60 1RF divalproex [Depakote ER] 250 mg tablet extended release 24 hr 250 mg PO 0900 Qty: 30 1RF Rx Instructions: along with 1000mg [id number] total. Discontinued methylphenidate HCl 20 mg tablet 20 mg PO DAILY buspirone 15 mg tablet 15 mg PO TID varenicline tartrate 1 mg tablet 1 mg PO BID clonazepam [Klonopin] 0.5 mg tablet See Rx Instructions .ROUTE .COMPLEX Rx Instructions: Take one tablet in am, 1/2 tablet in afternoon, and one tablet at night. Discharge Orders: Discharge Order (Routine); Ordered 01/07/25 Ordered By: Fadi Bowie Referrals: [facility] [Other] - 01/07/25 9:00 am Referral Note: 28 day inpatient program Discharge Diet: Regular Discharge Activity: Resume usual activity Patient Instructions: Depression (DC), Social Anxiety Disorder (GEN), Help Prevent Suicide in Older Adults (DC), Borderline Personality Disorder (DC), Opioid Safety Discharge Attestations NPU Time Spent in Discharge Care*: less than 30 min Specific Discharge Activities: Specific discharge activities: educating patient, discussing with correctional casework specialist/social workers/dc planners, documenting/other paperwork and evaluating patient/reviewing data Coding Level of Care Code Acute Code for [facility] Fwd Diagnoses Major depressive disorder F32.9 Borderline personality disorder F60.3 Suicidal ideations R45.851 PTSD (post-traumatic stress disorder) F43.10 Drug overdose T50.902A Encounter type: initial encounter Injury intent: intentional self-harm Bipolar disorder with depression F31.9 Suicide attempt T14.91XA Panic attacks F41.0 History of OCD (obsessive compulsive disorder) Z86.59
== END 2025-01-07 06:30 | disposition home or self-care (01) | DRG 885 ==
LOC: ER 09:19 → NP 12:36
PROVIDERS: Admitting Provider Psychiatry & Neurology Psychiatry; Emergency Provider Family Medicine; Visit Provider Psychiatry & Neurology Psychiatry
DX: F31.9 Bipolar disorder, unspecified (principal); R45.851 Suicidal ideations; F60.3 Borderline personality disorder; F43.10 Post-traumatic stress disorder, unspecified; F41.0 Panic disorder [episodic paroxysmal anxiety]; Z86.59 Personal history of other mental and behavioral disorders; F17.210 Nicotine dependence, cigarettes, uncomplicated; F17.290 Nicotine dependence, other tobacco product, uncomplicated; F17.220 Nicotine dependence, chewing tobacco, uncomplicated; R55 Syncope and collapse
CPT/HCPCS: 36415; 73110; 73130; 80053; 80306; 80307; 81001; 85025; 96372; 97150; 97165; 99285; J1200; J1630; J2060; J3486; J9999; Q0161

== ENCOUNTER 2025-01-19 06:19 | Inpatient (IN) | payer MEDICAID, SELFPAY ==
[2024-12-29 17:33] VITALS: BP 124/79; BMI 30.4
[2025-01-19] VITALS (85 sets, daily range): BP systolic 98–163; BP diastolic 54–112; PULSE 74–128; RESP 14–24; TEMP 36.8–37; O2SAT 94–100; BMI 25.1; BMI 22.4
[2025-01-19 04:23] LABS: ABG PCO2 39.8 mmHg (35-45); ABG PH Result 7.42 (7.35-7.45); Arterial Blood Gas Hematocrit 41.6 % (42-52); Blood Gas Allen Test Pos; Blood Gas LPM 5.0 %; Blood Gas Sample Site Radial, left; Blood Gas Sample Type Arterial; Carboxyhemoglobin 5.9 %THgb (0.4-20.1); Glucose Level-ABG 121.0 mg/dL (70-115); HCO3 ABG 25.6 mmol/L (22-26); Ionized Calcium Level - ABG 1.2 mmol/L (1.1-1.4); Methemoglobin 0.2 % (0.4-1.5); Oxygen Saturation ABG > 99.1; PO2 ABG 124.0 mmHg (80.0-100.0); Potassium Level - ABG 3.9 mmol/L (3.5-5.0); Sodium Level - ABG 143.0 mmol/L (131-143)
[2025-01-19 04:24] LABS: Alveolar-Arterial Oxygen Gradi 0.0 mmHg (5-10)
[2025-01-19 04:28] LABS: Hematocrit 40.3 % (37-53); Hemoglobin 13.30 g/dL (11.27-16.99); Mean Corpuscular HGB Conc 33.0 g/dL (30-55); Mean Corpuscular Hemoglobin 30.9 pg (27-33); Mean Corpuscular Volume 93.7 fl (82-101); Nucleated Red Blood Cells % 0 %; Platelet Count 238 10^3/cmm (157-399); Red Blood Count 4.30 10^6/uL (3.85-5.65); White Blood Count 9.28 10^3/uL (3.29-11.43)
--- NOTE | 2025-01-19 04:30 | ECG_ITS ---
[facility]25[facility]19 Pat Name: Parth Newman Department: Room: Gender: Male Administrator Pesticide: : 2000 Requested By: James Monson Order Number: [id number] Brenden MD: Chang Russell M.D. Measurements Intervals [place] Rate: 97 P: 32 [place]: 148 QRS: 40 QRSD: 110 T: 32 QT: 339 QTc: 432 Interpretive Statements SINUS RHYTHM NONSPECIFIC T-WAVE ABNORMALITY Compared to ECG 12/21/2024 02:39:02 No significant changes Electronically Signed On 01-21-2025 08:44:14 CDT by Chang Russell M.D. [email or web address]
--- OUTSIDE RECORDS SUMMARY | 2025-01-19 04:32 | XMS_ITS | Encounter Summary ---
Author Organization [facility] Address [address] [place] [address] Care Team Providers Care Hand Flesher Name Role Phone Unavailable Primary Care Provider Unavailabl e Encounter Details Date Type Department Care Team (Latest Contact Info) Description 2000 [facility] [address] [id number] Latanya Cody MD [address] [place] [id number] Routine child health exam (Primary Dx) Social History Tobacco Use Types Packs/Day Years Used Date Smoking Tobacco: Never Assessed Sex and Gender Information Value Date Recorded Sex Assigned at Not on file Legal Sex Male 6:29 AM [employer] Gender Identity Not on file Sexual Orientation Not on file documented as of this encounter Plan of Treatment Not on file documented as of this encounter Visit Diagnoses Diagnosis Routine child health exam- Primary Routine infant or child health check documented in this encounter
--- OUTSIDE RECORDS SUMMARY | 2025-01-19 04:32 | XMS_ITS | Encounter Summary ---
Author Organization [facility] Address [address] [place] [address] Care Team Providers Care Assistant To The Director Name Role Phone Unavailable Primary Care Provider Unavailabl e Encounter Details Date Type Department Care Team (Latest Contact Info) Description 07/25/2003 Outpatient Historical [facility] Medicine [address] [phone] Latanya Cody MD [address] [place] [phone] PERFORAT TYMPAN MEMB NOS (Primary Dx) Social History Tobacco Use Types Packs/Day Years Used Date Smoking Tobacco: Never Assessed Sex and Gender Information Value Date Recorded Sex Assigned at Not on file 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
--- OUTSIDE RECORDS SUMMARY | 2025-01-19 04:32 | XMS_ITS | Encounter Summary ---
Author Organization [facility] Address [address] [place] [address] Care Team Providers Care Early Learning Teacher Name Role Phone Unavailable Primary Care Provider Unavailabl e Encounter Details Date Type Department Care Team (Latest Contact Info) Description 04/30/2003 Outpatient Historical [facility] Medicine [address] [phone] Latanya Cody MD [address] [place] [phone] Routine child health exam (Primary Dx) Social History Tobacco Use Types Packs/Day Years Used Date Smoking Tobacco: Never Assessed Sex and Gender Information Value Date Recorded Sex Assigned at Not on file 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
--- OUTSIDE RECORDS SUMMARY | 2025-01-19 04:32 | XMS_ITS | Clinical Summary ---
Author Organization [facility] Address [address] 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
--- OUTSIDE RECORDS SUMMARY | 2025-01-19 04:32 | XMS_ITS | Encounter Summary ---
Author Organization [facility] Address [address] [place] [address] Care Team Providers Care Wearing Apparel Shaker Name Role Phone Unavailable Primary Care Provider Unavailabl e Encounter Details Date Type Department Care Team (Latest Contact Info) Description 10/31/2003 Outpatient Historical [facility] Medicine [address] [phone] Latanya Cody MD [address] [place] [phone] Routine child health exam (Primary Dx) Social History Tobacco Use Types Packs/Day Years Used Date Smoking Tobacco: Never Assessed Sex and Gender Information Value Date Recorded Sex Assigned at Not on file 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
--- OUTSIDE RECORDS SUMMARY | 2025-01-19 04:32 | XMS_ITS | Encounter Summary ---
Author Organization [facility] Address [address] [place] [address] Care Team Providers Care Alliance Director Name Role Phone Unavailable Primary Care Provider Unavailabl e Encounter Details Date Type Department Care Team (Latest Contact Info) Description 2002 Outpatient Historical [facility] Medicine [address] [phone] Latanya Cody MD [address] [place] [phone] Routine child health exam (Primary Dx) Social History Tobacco Use Types Packs/Day Years Used Date Smoking Tobacco: Never Assessed Sex and Gender Information Value Date Recorded Sex Assigned at Not on file 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
--- OUTSIDE RECORDS SUMMARY | 2025-01-19 04:32 | XMS_ITS | Encounter Summary ---
Author Organization [facility] Address [address] [place] [address] Care Team Providers Care Communications Station Manager Name Role Phone Unavailable Primary Care Provider Unavailabl e Encounter Details Date Type Department Care Team (Latest Contact Info) Description 07/31/2003 Outpatient Historical [facility] Medicine [address] [phone] Latanya Cody MD [address] [place] [phone] Routine child health exam (Primary Dx) Social History Tobacco Use Types Packs/Day Years Used Date Smoking Tobacco: Never Assessed Sex and Gender Information Value Date Recorded Sex Assigned at Not on file 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
--- OUTSIDE RECORDS SUMMARY | 2025-01-19 04:32 | XMS_ITS | Encounter Summary ---
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
--- OUTSIDE RECORDS SUMMARY | 2025-01-19 04:32 | XMS_ITS | Encounter Summary ---
Author Organization [facility] Address [address] [place] [address] Care Team Providers Care Ultrasonic Seaming Machine Operator Name Role Phone Unavailable Primary Care Provider Unavailabl e Encounter Details Date Type Department Care Team (Late st Contact Info) Description 2002 Outpatient Historical [facility] Medicine [address] [phone] Latanya Cody MD [address] [place] [phone] Social History Tobacco Use Types Packs/Day Years Used Date Smoking Tobacco: Never Assessed Sex and Gender Information Value Date Recorded Sex Assigned at Not on file 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
--- NOTE | 2025-01-19 04:47 | XRR_ITS ---
PROCEDURE INFORMATION: Exam: XR Chest Exam date and time: 01/19/2025 4:50 AM Age: 24 years old Clinical indication: Device placement; Ett placement (vent status); Prior surgery; Surgery date: 6+ months; Surgery type: Clavicular fixation; Check S/P et/og placement; Additional info: Intubation TECHNIQUE: Imaging protocol: Radiologic exam of the chest. Views: 1 view. COMPARISON: CR (CHEST, ) 12/21/2024 1:32 AM FINDINGS: Tubes, catheters and devices: Gastric tube terminates in the stomach. Endotracheal tube terminates above the nora. Lungs: Mild atelectasis or infiltrate developing in the left lower lobe. Pleural spaces: Unremarkable. No pleural effusion. No pneumothorax. Heart/Mediastinum: Unremarkable. No cardiomegaly. Bones/joints: ORIF of the clavicle. XR/XR chest 1V portable 16044 IMPRESSION: 1. Intubation. 2. Mild opacity developing in the retrocardiac left lower lobe.
--- NOTE | 2025-01-19 04:47 | PC.NURSE ---
To room ER 11 @ 0413 Pt presents with eyes closed, responsive to verbal stimulation Per EMS, pt took medication @ approximately 0315, pt GCS has dropped since EMS arrival to scene Medication bottles of Seroquel and Depakote were empty at pt residence Per records, on 12/26/24 pt refilled Depakote ER 500 mg x 60 tablets and Seroquel 200 mg x 60 tablets. Pt was in house admit 12/30-01/07. Primary care RN notified poison control hotline.
[2025-01-19 04:54] LABS: Alanine Aminotransferase 14 U/L (0-41); Albumin Level 4.2 g/dL (3.5-5.2); Alkaline Phosphatase 53 U/L (40-130); Blood Urea Nitrogen 17 mg/dL (6-20); Calcium 9.4 mg/dL (8.5-10.5); Carbon Dioxide 24 mmol/L (22-29); Chloride 104 mmol/L (98-107); Creatinine Clr Calc Pharmacy 80.0481; Globulin 2.2 g/dL (1.3-4.6); Glucose 100 mg/dL (65-115); Osmolality Calculated 296 mOsm/kg (285-295); Sodium 142 mmol/L (136-145); Thyroid Stimulating Hormone 5.02 uIU/mL (0.27-4.20); Total Protein 6.4 g/dL (6.6-8.7)
[2025-01-19] MEDS: etomidate 2 mg/mL INJ SDV 10 mL 20 MG IVP (04:54)
[2025-01-19] MEDS: succinylcholine 20 mg/mL SDV 10mL 100 MG IVP (04:55)
[2025-01-19 04:56] LABS: Acetaminophen < 5.0 ug/mL (10-30); Alcohol Level < 10 mg/dL (0-10); Anion Gap 18.2 (5-19); Potassium 4.2 mmol/L (3.5-5.1); Salicylate < 0.3 mg/dL (3-10)
[2025-01-19 04:57] LABS: Aspartate Amino Transferase 15 U/L (0-40)
--- NOTE | 2025-01-19 05:00 | PC.NURSE ---
Last Rx filled on 12/26/24. He received Depakote 500mg x 60, Seroquel 200mg x 60. His daily dose on Depakote is 1,000mg daily and Seroquel 200mg daily. He was inpatient at [facility] December 30-. According to these calculations He should have had 40 count of Depakote and 50 count of Seroquel. Contacted Poison Control, Depakote Peak 7 hours, 1/2 life 9-16 hours. Seroquel Peak 1 1/2 hours, 1/2 life 6 hours. Depakote- Things to watch for: METAL ROOFER deopression, Tachycardia, Elevated ammonia, elevated serum lactate, elevated liver enzymes Serial levels on Valproic Acid, ammonia, liver function test, electrolytes and CBC. Every 4-6 hours Seroquel- METAL ROOFER depression, tachycardia, hypotension, OTc interval may prolong. seizures. muscle dystonia. Serial EKG initially then PRN.
--- NOTE | 2025-01-19 05:10 | W.ED.OVERDOS ---
HPI - Overdose General: Chief Complaint: Overdose Stated Complaint: Overdose Time Seen by Provider: 01/19/25 04:21 History of Present Illness: 24-year-old male patient with a history of depression, and multiple episodes of overdose. He presents after having taken large doses of valproic acid and Seroquel earlier this morning. Estimated time of ingestion is an hour prior to arrival. Quantities are unknown. On EMS arrival, he had a low blood pressure, and was somewhat lethargic, but able to walk to the ambulance [facility]. En route, he got fluid, and a couple of doses of push dose epinephrine for hypotension. He presents stuporous but answering questions. Related Data Home Medications ?Medication ?Instructions ?Recorded ?Confirmed nicotine 21 mg/24 hr daily 1 patch topical DAILY 12/30/24 12/30/24 transdermal patch Previous Rx's ?Medication ?Instructions ?Recorded buspirone 10 mg tablet 20 mg (2 x 10 mg) PO TID 30 days 01/06/25 #180 tabs chlorpromazine 25 mg tablet 25 mg PO TID 30 days #90 tabs 01/06/25 divalproex 250 mg tablet,extended 250 mg PO 0900 #30 tabs 01/06/25 release 24 hr (Depakote ER) divalproex 500 mg tablet,extended 1,000 mg (2 x 500 mg) PO .AM 30 01/06/25 release 24 hr days #60 tabs hydroxyzine HCl 50 mg tablet 50 mg PO BID PRN anxiety #60 tabs 01/06/25 naltrexone 50 mg tablet 50 mg PO DAILY #30 tabs 01/06/25 propranolol 20 mg tablet 20 mg PO BID PRN anxiety #60 tabs 01/06/25 quetiapine 200 mg tablet 200 mg PO BEDTIME 30 days #30 tabs 01/06/25 trazodone 100 mg tablet 200 mg (2 x 100 mg) PO BEDTIME PRN 01/06/25 Insomnia 30 days #60 tabs venlafaxine 75 mg capsule,extended 75 mg PO DAILY 30 days #30 caps 01/06/25 release 24 hr Allergies Allergy/AdvReac Type Severity Reaction Status Date / Time No Known Allergies Allergy Verified 12/26/24 02:38 [facility] PFSH: Medical History Septic arthritis of knee Psychiatric care History of OCD (obsessive compulsive disorder) Depression Family History Other Cancer Hypertension Social History Smoking and tobacco/nicotine status: current every day tobacco/nicotine user cigarettes Packs smoked per day: 10 Years cigarettes smoked: 10, e-cigarettes E-Cigarette Details: e-cigarette and with nicotine E-cig/vape details: 10,000 puff last only a week and smokeless tobacco Smokeless tobacco user: chewing tobacco Smokeless tobacco details: from time to time Quit status (tobacco/nicotine): considering quitting Second hand smoke exposure: Yes Alcohol intake: never Substance/Drug Use: current Substance/Drug use frequency: daily Additional social history: Patient states he wants full code on 11/16/2024 Adopted: No Caregiver/support person: No Lives independently: Yes Household members: family Housing: House Marital status: Single Number of children: 0 Number of grandchildren: 0 Highest education level completed: Some College, No Degree service: No Current occupational status: other Details: filing for disability Pets and animals: Yes Pets & animals: cat(s) and dog(s) Leisure activites: music and other Leisure activities details: watching TV Sexually active: No Do you think of yourself as: Straight/Heterosexual Current gender identity: Male Patricia/Roman Catholic: Other Special patricia needs: No Agree to transfusion: Yes Physical Exam Const: GENERAL APPEARANCE: lethargic and ill appearing ORIENTATION/CONSCIOUSNESS: Yes lethargic HENMT: COMMON NORMALS: normocephalic, atraumatic and Normal external nose present HEAD & SCALP: normocephalic and atraumatic FACE & SINUS: normal facial exam and face symmetric NOSE: Normal external nose present Eye: COMMON NORMALS: Equal, round and reactive pupils present and EOMs intact bilaterally PUPIL: Yes Equal, round and reactive pupils present Neck/C-Spine: GENERAL: Yes trachea midline Chest: CHEST: Yes Symmetrical chest wall rise Resp: COMMON NORMALS: clear to auscultation bilaterally EFFORT & INSPECTION: Yes symmetric chest movement and Yes decreased respiratory effort AUSCULTATION: clear to auscultation bilaterally Cardio: COMMON NORMALS: regular rhythm RATE: tachycardic RHYTHM: regular rhythm Neuro: TAI COMA SCALE: document GCS findings Tai coma scale eye opening: To sound [place] coma scale verbal response: Confused [place] coma scale motor response: Obey commands Tai coma scale total score: 13 SENSORIUM/ORIENTATION: Yes lethargic and Yes somnolent SPEECH: abnormal speech Details: slurred Procedures Intubation Time out performed: Yes sedative: Etomidate Mg Given: 20 paralytic: Succinylcholine Mg Given: 100 Laryngoscope: Tim (4) Assist Device Used: fiber optic device ET Tube Size: 8 ET Tube Uncuffed: No Tube Secured Depth (cm): 26 Tube Secured Location: lips Tube Placement Confirmation: visualized tube passing through cords, equal breath sounds bilaterally, no breath sounds over epigastrium and confirmation by capnometry Patient Tolerated Procedure: well and no complications Intubation Complications: none Course Vital Signs: Vital signs: Vital Signs Pulse Rate 91 01/19/25 15:08 Respiratory Rate 17 01/19/25 13:59 Blood Pressure 118/75 01/19/25 12:15 Pulse Oximetry 94 01/19/25 13:59 Oxygen Delivery Me thod Mechanical Ventil ation 01/19/25 07:30 Oxygen Flow Rate 6 01/19/25 04:45 Fraction of Inspir ed Oxygen 24 01/19/25 13:59 MDM - Overdose Medical Decision Making On arrival, vitals were stable, GCS was 13. Blood sugar was in the 120s. During his first hour in the emergency department, mental status decreased significantly, to the point that the patient was barely arousable to noxious stimuli/pain. He only made sounds, and did not open his eyes. At this point, elective intubation was performed without complication. He is currently on the ventilator. Heart rate is 106, blood pressure 137/84, saturation is 99%. OG tube and Perez replaced. He is on propofol and fentanyl. Laboratory including liver enzymes, ammonia, lactic acid and valproate levels are drawn. Initial liver enzymes are normal. alcohol is less than 10. CBC is normal. Creatinine is 1.5. Tylenol and salicylate levels are nondetectable. Poison control was contacted. Recommendations are valproic acid levels, ammonia levels, CMP, and lactic acid levels every six hours. He will go to the ICU. Hospitalist is seeig patient in the ER. Lab Data 01/19/25 07:08 01/19/25 07:08 Radiology Impressions Chest X-Ray 01/19/25 04:47 IMPRESSION: 1. Intubation. 2. Mild opacity developing in the retrocardiac left lower lobe. Laboratory Results WBC 9.28 10^3/uL (3.29-11.43) 01/19/25 04:20 RBC 4.30 10^6/uL (3.85-5.65) 01/19/25 04:20 Hgb 13.30 g/dL (11.27-16.99) 01/19/25 04:20 Hct 40.3 % (37-53) 01/19/25 04:20 MCV 93.7 fl (82-101) 01/19/25 04:20 MCH 30.9 pg (27-33) 01/19/25 04:20 MCHC 33.0 g/dL (30-55) 01/19/25 04:20 RDW 12.7 % (12.1-15.1) 01/19/25 04:20 Plt Count 238 10^3/cmm (157-399) 01/19/25 04:20 MPV 9.3 fL (7.4-10.4) 01/19/25 04:20 Neut % (Auto) 53.7 % 01/19/25 04:20 Lymph % (Auto) 32.4 % 01/19/25 04:20 [place] % (Auto) 9.3 % 01/19/25 04:20 Eos % (Auto) 4.0 % 01/19/25 04:20 Baso % (Auto) 0.3 % 01/19/25 04:20 Neut # (Auto) 4.98 10^3/uL (1.8-7.7) 01/19/25 04:20 Lymph # (Auto) 3.0 10^3/uL (0.8-4.8) 01/19/25 04:20 [place] # (Auto) 0.9 10^3/uL (0.2-0.9) 01/19/25 04:20 Eos # (Auto) 0.4 10^3/uL (0.0-0.8) 01/19/25 04:20 Baso # (Auto) 0.0 10^3/uL (0.0-0.1) 01/19/25 04:20 Nucleated RBC % (auto) 0 % 01/19/25 04:20 Nucleated RBCs # 0.0 /100WBC 01/19/25 04:20 Specimen Type Arterial 01/19/25 04:12 Sample Site Radial, left 01/19/25 04:12 ABG pH 7.42 (7.35-7.45) 01/19/25 04:12 ABG pCO2 39.8 mmHg (35-45) 01/19/25 04:12 ABG pO2 124.0 mmHg (80.0-100.0) H 01/19/25 04:12 ABG HCO3 25.6 mmol/L (22-26) 01/19/25 04:12 ABG O2 Saturation > 99.1 01/19/25 04:12 ABG Base Excess 1.0 mmol/L (-2.0-2.0) 01/19/25 04:12 Artur Test Pos 01/19/25 04:12 A-a O2 Gradient 0.0 mmHg (5-10) L 01/19/25 04:12 Hematocrit 41.6 % (42-52) L 01/19/25 04:12 Hgb O2 Saturation 93.4 % (95-100) L 01/19/25 04:12 Carboxyhemoglobin 5.9 %THgb (0.4-20.1) 01/19/25 04:12 Methemoglobin 0.2 % (0.4-1.5) L 01/19/25 04:12 Total Hemoglobin 13.6 g/dL (14-18) L 01/19/25 04:12 Sodium 143.0 mmol/L (131-143) 01/19/25 04:12 Potassium 3.9 mmol/L (3.5-5.0) 01/19/25 04:12 Glucose 121.0 mg/dL (70-115) H 01/19/25 04:12 Ionized Calcium 1.2 mmol/L (1.1-1.4) 01/19/25 04:12 O2 Delivery Device Nc 01/19/25 04:12 O2 Liters/Min 5.0 % 01/19/25 04:12 Granulator Tender ID [id number] 01/19/25 04:12 Sodium 142 mmol/L (136-145) 01/19/25 04:20 Potassium 4.2 mmol/L (3.5-5.1) 01/19/25 04:20 Chloride 104 mmol/L (98-107) 01/19/25 04:20 Carbon Dioxide 24 mmol/L (22-29) 01/19/25 04:20 Anion Gap 18.2 (5-19) 01/19/25 04:20 BUN 17 mg/dL (6-20) 01/19/25 04:20 Creatinine 1.5 mg/dL (0.7-1.2) H 01/19/25 04:20 GFR Calculation 58.5 mL/min (90-130) L 01/19/25 04:20 Glucose 100 mg/dL (65-115) 01/19/25 04:20 POC Glucose 121 mg/dL (70-110) H 01/19/25 04:18 Calculated Osmolality 296 mOsm/kg (285-295) H 01/19/25 04:20 Lactic Acid 1.9 mmol/L (0.5-2.2) 01/19/25 04:20 Calcium 9.4 mg/dL (8.5-10.5) 01/19/25 04:20 Total Bilirubin 0.2 mg/dL (0.15-1.2) 01/19/25 04:20 AST 15 U/L (0-40) 01/19/25 04:20 ALT 14 U/L (0-41) 01/19/25 04:20 Alkaline Phosphatase 53 U/L (40-130) 01/19/25 04:20 Ammonia 54 umol/L (16-60) 01/19/25 05:00 Total Protein 6.4 g/dL (6.6-8.7) L 01/19/25 04:20 Albumin 4.2 g/dL (3.5-5.2) 01/19/25 04:20 Globulin 2.2 g/dL (1.3-4.6) 01/19/25 04:20 TSH 5.02 uIU/mL (0.27-4.20) H 01/19/25 04:20 Urine Color Yellow (Yellow) 01/19/25 05:20 Urine Appearance Clear (CLEAR) 01/19/25 05:20 Urine pH 6.0 (5-7) 01/19/25 05:20 Ur Specific [place] 1.021 (1.005-1.030) 01/19/25 05:20 Urine Protein Negative (Negative) 01/19/25 05:20 Urine Glucose (UA) Negative (Normal) 01/19/25 05:20 Urine Ketones Trace (Negative) 01/19/25 05:20 Urine Blood Negative (Negative) 01/19/25 05:20 Urine Nitrate Negative (Negative) 01/19/25 05:20 Urine Bilirubin Negative (Negative) 01/19/25 05:20 Urine Urobilinogen 1.0 mg/dL (Negative) 01/19/25 05:20 Ur Leukocyte Esterase Negative (Negative) 01/19/25 05:20 Urine RBC 0-2 /hpf (0-2) 01/19/25 05:20 Urine WBC 0-5 /hpf (0-5) 01/19/25 05:20 Ur Squamous Epith Cells 0-5 /hpf (0-5) 01/19/25 05:20 Amorphous Sediment Not Reportable 01/19/25 05:20 Urine Bacteria None seen /hpf (NONE) 01/19/25 05:20 Hyaline Casts 0.81 /lpf 01/19/25 05:20 Salicylates < 0.3 mg/dL (3-10) L 01/19/25 04:20 Urine Opiates Screen Negative ng/mL (Negative) 01/19/25 05:20 Acetaminophen < 5.0 ug/mL (10-30) L 01/19/25 04:20 Ur Barbiturates Screen Negative ng/mL (Negative) 01/19/25 05:20 Valproic Acid 47.5 ug/mL (50-100) L 01/19/25 04:20 Ur Phencyclidine Scrn Negative ng/mL (Negative) 01/19/25 05:20 Ur Amphetamines Screen Negative ng/mL (Negative) 01/19/25 05:20 U Benzodiazepines Scrn Negative ng/mL (Negative) 01/19/25 05:20 Urine Cocaine Screen Negative ng/mL (Negative) 01/19/25 05:20 U Marijuana (THC) Screen Positive ng/mL (Negative) H 01/19/25 05:20 Ethyl Alcohol < 10 mg/dL (0-10) 01/19/25 04:20 All radiology interpretation(s) finalized by discharge Critical Care Time Critical Care Time: Critical Care Time: Yes Total Critical Care Time: 35 Attestation: This case had a high probability of a clinically significant, sudden, or life threatening deterioration of this patient's condition which required my full and direct attention, intervention and personal management. Time is independent of any procedures performed. Discharge Plan Discharge Patient Disposition: Admitted As Inpatient Admit Provider: Susan Barlow Clinical Impression: Multiple drug overdose, Suicidal behavior with attempted self-injury, Acute respiratory failure Condition: Critical Coding Level of Care Code ED Olericulture Professor for Nish Stapleton
--- NOTE | 2025-01-19 05:15 | PC.NURSE ---
0454- Dr. Zamudio at head of bed, [facility] with Respiratory , Myself, Ryan Prado Rn and Mike with radiology at bedside for intubation. 0454- patient given 20 Etomidate 0455- Patient given 100 mg Succhycholine and manually bagged via ambu-bag per respiratory . 0456- Patient intubated using 8.0 ETT , 24 cm at Lip with positive color change and breathe sounds noted equally bilaterally. 0457- Patient placed on mechanical ventilation @ 50 % Fio2, VT 450, Rate of 16 and peep of 50. 0507- 16 [place] Perez Placed @ this time.
[2025-01-19 05:17] LABS: Lactic Sepsis W/Reflex 1.9 mmol/L (0.5-2.2)
[2025-01-19] MEDS: propofol 1,000 MG/100 ML INJ 2.31 MG IV (05:17)
[2025-01-19] MEDS: fentaNYL 1,000 MCG/100 ML BAG 2.5 MCG IV (05:18)
[2025-01-19 05:25] LABS: Ammonia 54 umol/L (16-60)
[2025-01-19 05:28] LABS: Glucose Urine UA Negative (Normal); Nitrate Urine Negative (Negative); Specific Gravity, Urine 1.021 (1.005-1.030)
[2025-01-19 05:33] LABS: Add Urine Microscopic? YES
[2025-01-19 05:35] LABS: PCP Screen Urine Negative (Negative)
--- NOTE | 2025-01-19 06:01 | P.HP_ITS ---
Providers/Chief Complaint 2 Admitting Physician: Patient seen after 12 midnight at 5:30 AM on this day Chief Complaint: Overdose History of Present Illness Parth Newman is a 24 year old male with medical history significant for suicidal ideation and thoughts and this time patient had multiple drug overdose majorly valproic acid but of unknown quantity. Valproic acid has so much liver toxicity that the poison control 1 lab to be drawn every 6 hours for lactic acid valproic acid and ammonia and CMP to continue to check for health of the liver function. I have drawn PT PTT at baseline patient has albumin as well. Patient presented to the emergency room nearly obtunded just 1 hour after taking unknown quantity of multiple medication with an idea to kill himself. It was unclear who called 911. Within 40 minutes of him arrival ,patient went seriously obtunded to where he is not able to maintain his airway and had to be emergently intubated. Patient is now being admitted to ICU. Review of Systems 2 Narrative: System review of 10 organ review were noted to be 1 of verbally unresponsiveness and limited at this time the patient is obtunded and intubated Medications/Allergies Home Medications ?Medication ?Instructions ?Recorded ?Confirmed ?Last Taken ?Type nicotine 21 mg/24 hr daily 1 patch topical DAILY 12/3012/30/24 Unknown History transdermal patch buspirone 10 mg tablet 20 mg (2 x 10 mg) PO TID 30 days 01/06/25 Unknown Rx #180 tabs chlorpromazine 25 mg tablet 25 mg PO TID 30 days #90 t abs 01/06/25 Unknown Rx divalproex 250 mg tablet,extended 250 mg PO 0900 #30 t abs 01/06/25 Unknown Rx release 24 hr (Depakote ER) divalproex 500 mg tablet,extended 1,000 mg (2 x 500 mg ) PO .AM 30 01/06/25 Unknown Rx release 24 hr days #60 tabs hydroxyzine HCl 50 mg tablet 50 mg PO BID PRN anxiety #60 tabs 01/06/25 Unknown Rx naltrexone 50 mg tablet 50 mg PO DAILY #30 tabs 12/16 10/08 Unknown Rx propranolol 20 mg tablet 20 mg PO BID PRN anxiety #60 tabs 01/06/25 Unknown Rx quetiapine 200 mg tablet 200 mg PO BEDTIME 30 days #3 0 tabs 01/06/25 Unknown Rx trazodone 100 mg tablet 200 mg (2 x 100 mg) PO BEDTI ME PRN 01/06/25 Unknown Rx Insomnia 30 days #60 tabs venlafaxine 75 mg capsule,extended 75 mg PO DAILY 30 d ays #30 caps 01/06/25 Unknown Rx release 24 hr Allergies Allergy/AdvReac Type Severity Reaction Status Date / Time No Known Allergies Allergy Verified 12/26/24 02:38 PFSH Acute 2 PFSH: Medical History Septic arthritis of knee Psychiatric care History of OCD (obsessive compulsive disorder) Depression Family History Other Cancer Hypertension Social History Smoking and tobacco/nicotine status: current every day tobacco/nicotine user cigarettes Packs smoked per day: 10 Years cigarettes smoked: 10, e-cigarettes E- Cigarette Details: e-cigarette and with nicotine E-cig/vape details: 10,000 puff last only a week and smokeless tobacco Smokeless tobacco user: chewing tobacco Smokeless tobacco details: from time to time Quit status (tobacco/nicotine): considering quitting Second hand smoke exposure: Yes Alcohol intake: never Substance/Drug Use: current Substance/Drug use frequency: daily Additional social history: Patient states he wants full code on 11/16/2024 Adopted: No Caregiver/support person: No Lives independently: Yes Household members: family Housing: House Marital status: Single Number of children: 0 Number of grandchildren: 0 Highest education level completed: Some College, No Degree service: No Current occupational status: other Details: filing for disability Pets and animals: Yes Pets & animals: cat(s) and dog(s) Leisure activites: music and other Leisure activities details: watching TV Sexually active: No Do you think of yourself as: Straight/Heterosexual Current gender identity: Male Patricia/Hinduism: Other Special patricia needs: No Agree to transfusion: Yes Vitals/I&O/Wt Last Vital Signs Pulse 99 01/19/25 05:30 Resp 16 01/19/25 05:30 BP 124/79 01/19/25 05:30 Pulse Ox 98 01/19/25 05:30 O2 Del Method Mechanical Ventilation 01/19/25 05:30 O2 Flow Rate 6 01/19/25 04:45 FiO2 50 01/19/25 05:30 01/18/25 01/18/25 01/19/25 14:59 22:59 06:59 Intake Total 0 / 0 Balance 0 / 0 Weight last 48 hrs Weight 77.111 kg Physical Exam 2 Narrative: General The patient is found to be obtunded and intubated at this time sedated with propofol and on fentanyl as well. HEENT normocephalic/atraumatic neck neck is supple cardiovascular heart rate is regular lungs are clear abdomen soft nontender nondistended unremarkable extremities intact no edema has good pulses neurology examination is very limited at this time as patient is not awake and not able to respond to anything because of sedation and intubation. However pupils are equal the react to light and at 4 mm pulpil gauge Urinary Catheter Management: Perez: Cath Placed During This Visit: yes Urinary Catheter Date of Insertion: 01/19/25 Urinary Catheter Time of Insertion: 05:15 Data 01/19/25 04:20 01/19/25 04:20 A&P Assessment and plan (1) Suicidal behavior with attempted self-injury: Patient status post suicidal attempt resulting in a with intubation because he could not maintain his own airway - Monitor and treat - Continue vent management - Follow daily chest x-ray to assure appropriate tube placement - Gentle hydration with normal saline - Empiric antibiotics with Zosyn to prevent overwhelming infection from the back of the throat while intubated - Anticipate that patient will be extubated in 48 hours - Must obtain psychiatric consult once patient is extubated and alert and awake be able to talk to someone. (2) Multiple drug overdose: Patient had multiple drug overdose of unknown quantity and unknown types Medaline on his valproic acid - Must follow through with lab drawl every 6 hours for ammonia, CMP, lactic acid, and valproic acid the poison control (3) Suicidal ideation: Patient has history of suicidal ideation Patient with suicidal ideation with now attempted suicide leading to airway intubation (4) Attention-deficit hyperactivity disorder, unspecified type: This is behavioral that we will be deferred to the psychiatrist once patient is extubated (5) Acute respiratory failure: Respiratory failure heparin following obtundation unable to maintain airway because of multiple drug overdose Must continue vent management and care (6) Major depressive disorder: This entity is deferred to the psychiatrist once patient is extubated. Patient has major depression. (7) Nicotine dependence, cigarettes, uncomplicated: Since patient behavior nicotine addiction and will be on nicotine patch and a program for smoking cessation (8) Panic attacks: Patient is with extreme anxiety disorder and panic attack again deferred to psychiatrist once patient is extubated (9) Acute anxiety: Ferdinand disorder will be deferred to the psychiatrist once patient is extubated and able to communicate. (10) Alcohol abuse: Patient has this history of alcohol abuse although these be managed with psychiatrics in the [place] why patient is being optimized after the acute ICU care and extubated Plan GI and DVT prophylaxis in place PDMP PDMP Reviewed: Last Reviewed 01/19/25 06:33 by Susan Barlow MD Attestations 2 Medical Necessity Statement*: Patient with multiple drug overdose obtunded and had to be intubated is being admitted to ICU and meets inpatient criteria for at least 2 midnights Coding Level of Care Code 16725 Diagnoses Suicidal behavior with attempted self-injury T14.91XA Multiple drug overdose T50.911A Suicidal ideation R45.851 Attention-deficit hyperactivity disorder, unspecified type F90.9 Acute respiratory failure J96.00 Major depressive disorder F32.9 Nicotine dependence, cigarettes, uncomplicated F17.210 Panic attacks F41.0 Acute anxiety F41.9 Alcohol abuse F10.10 Time Spent (min) 70
[2025-01-19 07:17] LABS: Hematocrit 37.9 % (37-53); Hemoglobin 12.50 g/dL (11.27-16.99); Mean Corpuscular HGB Conc 33.0 g/dL (30-55); Mean Corpuscular Hemoglobin 31.2 pg (27-33); Mean Corpuscular Volume 94.5 fl (82-101); Nucleated Red Blood Cells % 0 %; Platelet Count 237 10^3/cmm (157-399); Red Blood Count 4.01 10^6/uL (3.85-5.65); White Blood Count 7.40 10^3/uL (3.29-11.43)
[2025-01-19 07:30] LABS: INR 0.98 (0.8-1.2); Partial Thromboplastin Time 29.1 SECONDS (23.9-36.7); Prothrombin Time 13.70 SECONDS (12.1-14.9)
[2025-01-19 07:33] LABS: Ammonia 73 umol/L (16-60)
[2025-01-19 07:35] LABS: Lactate (Lactic Acid level) 1.3 mmol/L (0.5-2.2)
[2025-01-19 07:36] LABS: Alanine Aminotransferase 12 U/L (0-41); Albumin Level 4.0 g/dL (3.5-5.2); Alkaline Phosphatase 46 U/L (40-130); Anion Gap 15.3 (5-19); Aspartate Amino Transferase 12 U/L (0-40); Blood Urea Nitrogen 18 mg/dL (6-20); Calcium 8.8 mg/dL (8.5-10.5); Carbon Dioxide 24 mmol/L (22-29); Chloride 108 mmol/L (98-107); Creatinine Clr Calc Pharmacy 109.1566; Globulin 2.0 g/dL (1.3-4.6); Glucose 94 mg/dL (65-115); Magnesium 2.4 mg/dL (1.7-2.3); Osmolality Calculated 298 mOsm/kg (285-295); Potassium 4.3 mmol/L (3.5-5.1); Sodium 143 mmol/L (136-145); Total Protein 6.0 g/dL (6.6-8.7)
[2025-01-19] MEDS: piperacillin-tazobactam 3.375 GM in sodium chloride 0.9% (plus) 50 ML IV (07:44)
[2025-01-19] MEDS: heparin 5,000 unit/mL INJ 1 mL 5000 UNIT SUBCUT ×2 (07:44→17:29)
[2025-01-19] MEDS: pantoprazole 40 mg SDV IVP (07:44)
[2025-01-19 10:32] LABS: ABG PCO2 44.1 mmHg (35-45); ABG PH Result 7.39 (7.35-7.45); Alveolar-Arterial Oxygen Gradi 5.2 mmHg (5-10); Arterial Blood Gas Hematocrit 39.7 % (42-52); Blood Gas Allen Test Pos; Blood Gas Operator Identificat GD; Blood Gas Sample Site Radial, right; Blood Gas Sample Type Arterial; Blood Gas Tidal Volume 0.45; Carboxyhemoglobin 2.0 %THgb (0.4-20.1); Glucose Level-ABG 93.0 mg/dL (70-115); HCO3 ABG 26.7 mmol/L (22-26); Ionized Calcium Level - ABG 1.2 mmol/L (1.1-1.4); Methemoglobin 0.4 % (0.4-1.5); Oxygen Saturation ABG 99.2; PEEP 5.0 cmH20; PO2 ABG 118.0 mmHg (80.0-100.0); PO2 FiO2 Ratio Arterial Blood 393; Potassium Level - ABG 3.8 mmol/L (3.5-5.0); Sodium Level - ABG 144.0 mmol/L (131-143)
[2025-01-19 12:57] LABS: Ammonia 77 umol/L (16-60)
--- NOTE | 2025-01-19 15:57 | P.PN_ITS ---
Subjective 2 Subjective: He was admitted this morning for intentional drug overdose. He was for airway protection acute hypoxic respiratory failure. He an unknown quantity of valproic acid and Seroquel. Poison control is following. He is getting frequent labs. His mental status deteriorated significantly in the ED was barely arousable to noxious stimuli. He was intubated and is currently on the ventilator. Psychiatry is aware that he is admitted and consult will need to be placed once he is awake. Medications: Reviewed: Yes Vitals/I&O/Wt Last Vital Signs Pulse 91 01/19/25 15:08 Resp 17 01/19/25 13:59 BP 118/75 01/19/25 12:15 Pulse Ox 94 01/19/25 13:59 O2 Del Method Mechanical Ventilation 01/19/25 07:30 O2 Flow Rate 6 01/19/25 04:45 FiO2 24 01/19/25 13:59 01/19/25 01/19/25 01/19/25 06:59 14:59 22:59 Intake Total 1002.233 / 1002.233 50 / 50 Balance 1002.233 / 1002.233 50 / 50 Weight last 48 hrs Weight 69 kg Weight 77.111 kg Physical Exam 2 Urinary Catheter Management: Perez: Cath Placed During This Visit: yes Urinary Catheter Date of Insertion: 01/19/25 Urinary Catheter Time of Insertion: 05:15 Data 01/19/25 07:08 01/19/25 07:08 Micro: Microbiology 01/19/25 10:10 Gram Stain - Final Sputum - Endotracheal Tube Aspirate A&P Assessment and plan (1) Suicidal behavior with attempted self-injury: He has a history of frequent suicide attempts and is well-known to psychiatry Intubated for airway protection One-to-one sitter once extubated Psychiatry aware of his admission; please place consult once extubated (2) Multiple drug overdose: Overdose on unknown amount of valproic acid and quetiapine Telemetry monitoring Poison control is following Check CMP, lactic acid, serum ammonia, and follow-up uric acid every 4 hours per poison control (3) Toxic encephalopathy: He was lethargic but able to walk to the ambulance for EMS. He was stuporous with answering questions when he arrived to the ED. About an hour after presentation he was obtunded and minimally responsive to noxious stimuli. Intubated for airway protection (4) Suicidal ideation: Patient has history of suicidal ideation Patient with suicidal ideation with now attempted suicide leading to airway intubation (5) Acute respiratory failure: Intubated in the ED for airway protection. Daily wound trials as tolerated (6) Major depressive disorder: Management deferred to psychiatry (7) Panic attacks: Management deferred to psychiatry (8) Acute anxiety: Management deferred to psychiatry (9) Nicotine dependence, cigarettes, uncomplicated: Counseling on smoking cessation deferred until extubated (10) Attention-deficit hyperactivity disorder, unspecified type: Management per psychiatry (11) Alcohol abuse: Patient has this history of alcohol abuse. Ethanol level was Plan GI and DVT prophylaxis in place PDMP PDMP Reviewed: Not Reviewed Attestations 2 Medical Necessity Statement*: He requires continued ICU hospitalization for mechanical ventilation, serial labs, and telemetry monitoring. Extubate transferred to inpatient psych once extubated. Coding Level of Care Code Acute Code for [facility] Fwd Diagnoses Suicidal behavior with attempted self-injury T14.91XA Multiple drug overdose T50.911A Toxic encephalopathy G92.9 Suicidal ideation R45.851 Acute respiratory failure J96.00 Major depressive disorder F32.9 Panic attacks F41.0 Acute anxiety F41.9 Nicotine dependence, cigarettes, uncomplicated F17.210 Attention-deficit hyperactivity disorder, unspecified type F90.9 Alcohol abuse F10.10
[2025-01-19 16:38] LABS: Free T4 Free Thyroxine 1.28 ng/dL (0.82-1.77)
--- NOTE | 2025-01-19 18:23 | PC.NURSE ---
mother called upset wanted information on pt explained that according to june and he was not able to give consent to give personal information that she was on the list and able to come see him tomorrow . and hopfully that he would be able to give us consent in am for information milk house worker notified that mom was upset and situation .
[2025-01-19 18:41] LABS: Ammonia 98 umol/L (16-60)
[2025-01-19 18:42] LABS: Alanine Aminotransferase 11 U/L (0-41); Albumin Level 3.7 g/dL (3.5-5.2); Alkaline Phosphatase 48 U/L (40-130); Blood Urea Nitrogen 16 mg/dL (6-20); Calcium 8.3 mg/dL (8.5-10.5); Carbon Dioxide 19 mmol/L (22-29); Chloride 109 mmol/L (98-107); Creatinine Clr Calc Pharmacy 127.5056; Globulin 2.2 g/dL (1.3-4.6); Glucose 84 mg/dL (65-115); Osmolality Calculated 294 mOsm/kg (285-295); Sodium 142 mmol/L (136-145); Total Protein 5.9 g/dL (6.6-8.7); Uric Acid 3.9 mg/dL (3.4-7.0)
[2025-01-19 18:43] LABS: Anion Gap 18.0 (5-19); Aspartate Amino Transferase 15 U/L (0-40); Potassium 4.0 mmol/L (3.5-5.1)
[2025-01-19 18:44] LABS: Lactic Sepsis W/Reflex 1.1 mmol/L (0.5-2.2)
[2025-01-19] MEDS: propofol 1,000 MG/100 ML INJ 4.63 MG IV (20:29)
[2025-01-19 23:11] LABS: Ammonia 66 umol/L (16-60)
[2025-01-20] VITALS (77 sets, daily range): BP systolic 113–146; BP diastolic 57–86; PULSE 85–131; RESP 12–20; TEMP 36.7–37.5; O2SAT 92–97; BMI 32.5
[2025-01-20] MEDS: heparin 5,000 unit/mL INJ 1 mL 5000 UNIT SUBCUT (05:48)
[2025-01-20 05:53] LABS: Hematocrit 38.8 % (37-53); Hemoglobin 12.50 g/dL (11.27-16.99); Mean Corpuscular HGB Conc 32.2 g/dL (30-55); Mean Corpuscular Hemoglobin 30.9 pg (27-33); Mean Corpuscular Volume 95.8 fl (82-101); Nucleated Red Blood Cells % 0 %; Platelet Count 210 10^3/cmm (157-399); Red Blood Count 4.05 10^6/uL (3.85-5.65); White Blood Count 8.66 10^3/uL (3.29-11.43)
[2025-01-20] MEDS: pantoprazole 40 mg SDV IVP (06:14)
[2025-01-20 06:15] LABS: Alanine Aminotransferase 11 U/L (0-41); Albumin Level 3.6 g/dL (3.5-5.2); Alkaline Phosphatase 54 U/L (40-130); Anion Gap 12.8 (5-19); Aspartate Amino Transferase 11 U/L (0-40); Blood Urea Nitrogen 13 mg/dL (6-20); Calcium 8.4 mg/dL (8.5-10.5); Carbon Dioxide 23 mmol/L (22-29); Chloride 111 mmol/L (98-107); Creatinine Clr Calc Pharmacy 135.0772; Globulin 2.3 g/dL (1.3-4.6); Glucose 93 mg/dL (65-115); Magnesium 2.3 mg/dL (1.7-2.3); Osmolality Calculated 296 mOsm/kg (285-295); Potassium 3.8 mmol/L (3.5-5.1); Sodium 143 mmol/L (136-145); Total Protein 5.9 g/dL (6.6-8.7)
--- NOTE | 2025-01-20 07:14 | PC.NURSE ---
Upon morning report/shift change, patient intermittently wakes up and is very agitated. Gesturing to ET tube, attempting to yell at nursing staff. Striking bed rails with fists and slamming head into the bed. Nursing increased propofol to help calm patient due to concerns of patient dislodging ET tube with his head movement.
[2025-01-20] MEDS: propofol 1,000 MG/100 ML INJ 13.88 MG IV (08:33)
[2025-01-20] MEDS: haloperidol inj 5 mg/mL INJ 1 mL IVP ×2 (10:05→14:30)
[2025-01-20 10:43] LABS: Ammonia 74 umol/L (16-60)
--- NOTE | 2025-01-20 11:14 | PC.PHAR ---
vERIFIED DRUG LIST WITH LAST dISCHARGE PAPERS ADN pHARMACY .
--- NOTE | 2025-01-20 11:45 | P.PN_ITS ---
Subjective 2 Subjective: 24-year-old male admitted yest morning for intentional drug overdose. He was for airway protection acute hypoxic respiratory failure. He an unknown quantity of valproic acid and Seroquel. Poison control is following. He is getting frequent labs. His mental status deteriorated significantly in the ED was barely arousable to noxious stimuli. He was intubated and is currently on the ventilator. Psychiatry is aware that he is admitted and consult will need to be placed once he is awake. This morning he was agitated and trying to pull at his tube and was sedated with additional propofol. I spoke with Dr. Bolanos who is aware the patient's here and recommended treatment with Haldol 5 mg IV prior to proceeding with stopping propofol and extubating. Medications: Reviewed: Yes Vitals/I&O/Wt Last Vital Signs Temp 99.1 F 01/20/25 08:00 Pulse 85 01/20/25 10:15 Resp 16 01/20/25 10:14 BP 125/65 01/20/25 10:15 Pulse Ox 96 01/20/25 10:15 O2 Del Method Mechanical Ventilation 01/20/25 08:00 O2 Flow Rate 6 01/19/25 04:45 FiO2 24 01/20/25 10:14 01/19/25 01/20/25 01/20/25 22:59 06:59 14:59 Intake Total 992.434 / 5035.361 1828.595 / 2119.029 25.022 / 25.022 Output Total 650 / 650 450 / 1100 200 / 200 Balance 342.434 / 392.434 626.595 / 1019.029 -174.978 / -174.978 Weight last 48 hrs Weight 100 kg Weight 69 kg Weight 77.111 kg Physical Exam 2 Narrative: General Well-developed well-nourished muscular overweight male in no acute cardiopulmonary distress on the vent Pupils equally round and reactive to light accommodation at 4 mm CV regular rate and rhythm Lungs clear to auscultation bilaterally Abdomen soft nontender Perez catheter tube noted Calves no tenderness or asymmetry Urinary Catheter Management: Perez: Cath Placed During This Visit: yes Urinary Catheter Date of Insertion: 01/19/25 Urinary Catheter Time of Insertion: 05:15 Data 01/20/25 05:45 01/20/25 05:45 Micro: Microbiology 01/19/25 10:10 Gram Stain - Final Sputum - Endotracheal Tube Aspirate Sputum Culture - Preliminary A&P Assessment and plan (1) Suicidal behavior with attempted self-injury: He has a history of frequent suicide attempts and is well-known to psychiatry Intubated for airway protection One-to-one sitter once extubated spoke with Dr. Carey and we plan NPU transfer (2) Multiple drug overdose: Overdose on unknown amount of valproic acid and quetiapine Telemetry monitoring Poison control is following CMP lactic acid electrolytes normal ammonia level was elevated continue IV fluids (3) Toxic encephalopathy: Patient is currently sedated for tube tolerance but the drug overdose appears to have worn off. Anticipate rapid progression to extubation as he tends to be aggressive and does not follow commands (4) Suicidal ideation: Patient has history of suicidal ideation Patient with suicidal ideation with now attempted suicide leading to airway intubation (5) Major depressive disorder: Management deferred to psychiatry. Recurrent major depression as well as difficult behavior related to borderline personality disorder (6) Nicotine dependence, cigarettes, uncomplicated: Counseling on smoking cessation deferred until extubated (7) Attention-deficit hyperactivity disorder, unspecified type: Management per psychiatry (8) Alcohol abuse: Patient has this history of alcohol abuse. Ethanol level was 0 (9) Borderline personality disorder: Patient has had manipulative behaviors and historically has confronted staff about not helping him and that he is here for help. Recurrent multiple admissions. Plan GI and DVT prophylaxis in place PDMP PDMP Reviewed: Not Reviewed Attestations 2 Medical Necessity Statement*: Anticipate the patient will need greater than 2 additional midnights in the psychiatry unit Coding Level of Care Code Critical Care >/= 30 minutes Diagnoses Suicidal behavior with attempted self-injury T14.91XA Multiple drug overdose T50.911A Toxic encephalopathy G92.9 Suicidal ideation R45.851 Major depressive disorder F32.9 Nicotine dependence, cigarettes, uncomplicated F17.210 Attention-deficit hyperactivity disorder, unspecified type F90.9 Alcohol abuse F10.10 Borderline personality disorder F60.3 Time Spent (min) 35
[2025-01-20] MEDS: lactulose oral liq 20 gm/30 mL UDC 10 GM PO (12:08)
--- NOTE | 2025-01-20 13:30 | PC.NURSE ---
96 hr rights reviewed with pt @[id number] with assistance of [facility] reserve officer Jacob Clifford. Pt verbalized understandment to hold parameters, but was very adamant that he did not want to be admitted to [facility] NPU. HS explained that she would be sure to relay this information to all appropriate parties, but that where he is accepted into a bed is based off of numerous factors outside of HS control. Pt apologized for raising his voice towards HS. HS stated to pt that she understood that he was upset, but at this time he is an ICU pt until medically cleared and placement has been determined. HS asked that pt remain calm with all staff members. Pt agreed he would do so. Pt copy was left with pt @bedside. Pt declined needing anything. 1:1 PSA in view of pt for psych observation. No further needs at this time.
--- NOTE | 2025-01-20 13:50 | PC.NURSE ---
Patient extubated to room air at 1230. Uneventful. Oriented to person, place, and situation. A little lethargic but nothing unexpected after extubation. He is able to protect his airway. Patient states that we are allowed to spoke to his mom and dad. Patient is upset with current situation, but is mostly calm at this time. Nurse called patient's mom Michelle Au. Updated her on patient status, recent extubation, 96 hour hold, visiting hours form 3-4pm, and general plan of care.
--- NOTE | 2025-01-20 18:10 | PC.NURSE ---
ICU shift SUmmary: Uneventful since extubation. Vitals within normal. Occasionally increased heart rate during brief periods of agitation, but he was overall calm. Perez removed and patient has been able to void twice since removal. Walked short distances in room. started on regular diet without complication. Bilateral IVs removed before transfer to [facility].
--- NOTE | 2025-01-20 18:19 | PC.NURSE ---
NUrse called mother Michelle Au and let her know about patient transfer to NPU.
--- NOTE | 2025-01-20 18:31 | PC.NURSE ---
Pt has a large blister on his Lt heel. Still intact and no signs of infection.
--- NOTE | 2025-01-20 21:27 | PC.NURSE ---
MILAGRO Villela, Diallo and Seroquil held per DR. Carey.
[2025-01-21 06:00] VITALS: BP 116/85; PULSE 105; RESP 18; TEMP 36.8; O2SAT 95
--- NOTE | 2025-01-21 08:52 | PC.NURSE ---
Pts morning medications held per Dr. Montelongo orders
[2025-01-21 14:00] VITALS: BP 113/74; PULSE 99; RESP 16; O2SAT 99
--- NOTE | 2025-01-21 14:01 | P.NPUHP_ITS ---
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 endorsed a plan to avoid all drugs of abuse and follow up with the aftercare recommendations of the treatment team. The patient was evaluated and deemed to be absent credible lethality and had achieved the maximum benefit from an inpatient hospitalization, and so was discharged. The patient was agreeable to returning to live with his aunt and continuing with the plan for receiving more intensive inpatient DBT services. Meds NPU Home Medications ?Medication ?Instructions ?Recorded ?Confirmed ?Last Taken ?Type nicotine 21 mg/24 hr daily 1 patch topical DAILY 12/3001/20/25 Unknown History transdermal patch buspirone 10 mg tablet 20 mg (2 x 10 mg) PO TID 30 days 01/06/25 01/20/25 Unknown Rx #180 tabs chlorpromazine 25 mg tablet 25 mg PO TID 30 days #90 t abs 01/06/25 01/20/25 Unknown Rx divalproex 250 mg tablet,extended 250 mg PO 0900 #30 t abs 01/06/25 01/20/25 Unknown Rx release 24 hr (Depakote ER) divalproex 500 mg tablet,extended 1,000 mg (2 x 500 mg ) PO .AM 30 01/06/25 01/20/25 Unknown Rx release 24 hr days #60 tabs hydroxyzine HCl 50 mg tablet 50 mg PO BID PRN anxiety #60 tabs 01/06/25 01/20/25 Unknown Rx naltrexone 50 mg tablet 50 mg PO DAILY #30 tabs 12/1601/20/25 Unknown Rx propranolol 20 mg tablet 20 mg PO BID PRN anxiety #60 tabs 01/06/25 01/20/25 Unknown Rx quetiapine 200 mg tablet 200 mg PO BEDTIME 30 days #3 0 tabs 01/06/25 01/20/25 Unknown Rx trazodone 100 mg tablet 200 mg (2 x 100 mg) PO BEDTI ME PRN 01/06/25 01/20/25 Unknown Rx Insomnia 30 days #60 tabs venlafaxine 75 mg capsule,extended 75 mg PO DAILY 30 d ays #30 caps 01/06/25 01/20/25 Unknown Rx release 24 hr Allergies Allergy/AdvReac Type Severity Reaction Status Date / Time No Known Allergies Allergy Verified 12/26/24 02:38 PFSH NPU 2 PFSH: Medical History (Updated 01/19/25 @ 16:05 by Bri Bowie MD) Septic arthritis of knee Psychiatric care History of OCD (obsessive compulsive disorder) Depression Family History Other Cancer Hypertension Social History Smoking and tobacco/nicotine status: tobacco/nicotine user, details unknown cigarettes Packs smoked per day: 10 Years cigarettes smoked: 10, e-cigarettes E- Cigarette Details: e-cigarette and with nicotine E-cig/vape details: 10,000 puff last only a week and smokeless tobacco Smokeless tobacco user: chewing tobacco Smokeless tobacco details: from time to time Quit status (tobacco/nicotine): considering quitting Second hand smoke exposure: Yes Alcohol intake: never Substance/Drug Use: current Substance/Drug use frequency: daily Additional social history: Patient states he wants full code on 11/16/2024 Adopted: No Caregiver/support person: No Lives independently: Yes Household members: family Housing: House Marital status: Single Number of children: 0 Number of grandchildren: 0 Highest education level completed: Some College, No Degree service: No Current occupational status: other Details: filing for disability Pets and animals: Yes Pets & animals: cat(s) and dog(s) Leisure activites: music and other Leisure activities details: watching TV Sexually active: No Do you think of yourself as: Straight/Heterosexual Current gender identity: Male Patricia/Yazidi: Other Special patricia needs: No Agree to transfusion: Yes Mental Status Exam 2 MSE Comments: This is a well-nourished, well-developed, white male, in hospital scrubs seen in room with adequate grooming and poor eye contact. There was no evidence of any abnormal involuntary motor movements, except for psychomotor retardation. He was cooperative with exam. Speech was mostly normal in rate and normal in volume, and normal in production. Mood described as okay. Affect was dysphoric. Thought process was linear and organized. Thought content: patient denies active homicidal ideation and denies active suicidal ideation with no plan at this time. Patient denied any auditory or visual hallucinations. There was no evidence of delusional thinking. Attention, concentration, and memory appeared intact. Alert and oriented times three. Insight was poor. Judgment was poor Impulse control was poor. Vitals/I&O/Wt Last Vital Signs Temp 98.2 F 01/21/25 06:00 Pulse 105 H 01/21/25 06:00 Resp 18 01/21/25 06:00 BP 116/85 01/21/25 06:00 Pulse Ox 95 01/21/25 06:00 O2 Del Method Room Air 01/21/25 06:00 O2 Flow Rate 6 01/19/25 04:45 FiO2 24 01/20/25 12:24 01/20/25 01/21/25 01/21/25 22:59 06:59 14:59 Intake Total 1068.148 / 2160.188 Output Total 550 / 1000 Balance 518.148 / 1160.188 Weight last 48 hrs Weight 100 kg Physical Exam 2 Urinary Catheter Management: Perez: Cath Placed During This Visit: yes Urinary Catheter Date of Insertion: 01/19/25 Urinary Catheter Time of Insertion: 05:15 Data NPU 01/20/25 05:45 01/20/25 05:45 Micro: Microbiology 01/19/25 10:10 Gram Stain - Final Sputum - Endotracheal Tube Aspirate Sputum Culture - Final Microbiology 01/19/25 10:10 Sputum - Endotracheal Tube Aspirate Gram Stain - Final 01/19/25 10:10 Sputum - Endotracheal Tube Aspirate Sputum Culture - Final A&P Assessment and plan 1. Drug overdose: 2. Suicidal ideations: 3. Major depressive disorder: 4. Borderline personality disorder: 5. PTSD (post-traumatic stress disorder): 6. Bipolar disorder with depression: 7. Suicide attempt: 8. Panic attacks: 9. History of OCD (obsessive compulsive disorder): Plan: 24-year-old white male extensive history of multiple inpatient hospitalizations with borderline personality traits, dysthymia, extremely poor coping skills and signficant attention seeking behavior who presents once again with suicidal ideation with overdose with intubation in ICU. Patient has poor impulse control and continued affective instability. 1. Encourage individual, group and milieu therapy. 2. Recommend sober living treatment at the highest level of care to which the patient is willing to commit. Possibility for rehab bed sooner rather than later so we will need to address whether he is safe and/or ready for this option. 3. Continue q-15 minute checks for safety 4. Will simplify medication regimen, these medications have been unhelpful and patient requires more intense psychotherapy possibly in exterminator helper facility. Patient requires case management services, intense DBT services. 5. Will restart [place] at 300mg twice a day only. Hold buspar, depakote. Will restart trazodone, and thorazine. Hold Effexor XR for now. 6. Patient likely to require court appointed guardianship. PDMP PDMP Reviewed: Not Reviewed Involuntary Hold Information 2 Hold Status: Legal Status: 96 Hour Hold Date/Time Hold Expires: 0 01/24/2025@1300 96 Hour Hold: 96 Hour Involuntary Admission: Yes Other Hold: Hold End Date: 07/01/24 Attestations NPU 2 Medical Necessity Statement*: Inpatient hospitalization is medically necessary and the clinically appropriate intervention at this time. We will monitor medications and make changes as indicated. He will be in the hospital for over 2 midnights. The patient's likely length of stay will exceed 14 days given plan for guardianship. Coding Level of Care Code Acute Code for Chg Fwd Diagnoses Drug overdose T50.902A Encounter type: initial encounter Injury intent: intentional self-harm Suicidal ideations R45.851 Major depressive disorder F32.9 Borderline personality disorder F60.3 PTSD (post-traumatic stress disorder) F43.10 Bipolar disorder with depression F31.9 Suicide attempt T14.91XA Panic attacks F41.0 History of OCD (obsessive compulsive disorder) Z86.59
--- NOTE | 2025-01-21 17:25 | P.PN_ITS ---
Subjective 2 Subjective: 24-year-old male admitted for intentional drug overdose extubated yesterday and transferred to the neuropsychiatric unit states that he feels better and wants to go home. He states that he overdosed for dumb reason which is that a girl ghosted him from his social media and all contact and also the phone and he was upset and overdosed. He states that in 10 years this will not even matter and that there are other physician to sea. Patient voices understand that he knows he is on 96-hour hold. He states he feels fine except for his legs are sore he thinks from lack of use Medications: Reviewed: Yes Vitals/I&O/Wt Last Vital Signs Temp 98.2 F 01/21/25 06:00 Pulse 105 H 01/21/25 06:00 Resp 18 01/21/25 06:00 BP 116/85 01/21/25 06:00 Pulse Ox 95 01/21/25 06:00 O2 Del Method Room Air 01/21/25 06:00 O2 Flow Rate 6 01/19/25 04:45 FiO2 24 01/20/25 12:24 Weight last 48 hrs Weight 100 kg Physical Exam 2 Urinary Catheter Management: Perez: Cath Placed During This Visit: yes Urinary Catheter Date of Insertion: 01/19/25 Urinary Catheter Time of Insertion: 05:15 Data 01/20/25 05:45 01/20/25 05:45 Micro: Microbiology 01/19/25 10:10 Gram Stain - Final Sputum - Endotracheal Tube Aspirate Sputum Culture - Final A&P Assessment and plan 1. Suicidal behavior with attempted self-injury: Patient is well-known to psychiatric unit because he has multiple past attempts spoke with Dr. Carey and we will sign off since the patient is medically doing fine and is released at this time. Dr. Carey states they are seeking court guardianship for him because the patient is at such high risk of repeat events 2. Multiple drug overdose: Ammonia was elevated but patient is not encephalopathic. He is encouraged to drink a gallon of water today and then a half a gallon daily at baseline 3. Toxic encephalopathy: Resolved 4. Suicidal ideation: Patient has history of suicidal ideation Patient with suicidal ideation with now attempted suicide leading to airway intubation Multiple offenses and being managed by psychiatry to try and protect the patient against self-harm and improve his mental stability 5. Major depressive disorder: Management deferred to psychiatry. Recurrent major depression as well as difficult behavior related to borderline personality disorder 6. Attention-deficit hyperactivity disorder, unspecified type: Management per psychiatry 7. Alcohol abuse: Patient has this history of alcohol abuse. Ethanol level was 0 8. Borderline personality disorder: Patient has had manipulative behaviors and historically has confronted staff about not helping him and that he is here for help. Recurrent multiple admissions. Plan: GI and DVT prophylaxis in place PDMP PDMP Reviewed: Not Reviewed Attestations 2 Medical Necessity Statement*: Patient is transferred over to psychiatry to Dr. Carey. He is on 96-hour hold and will be in the hospital greater than 2 more days Coding Level of Care Code 57160 Diagnoses Suicidal behavior with attempted self-injury T14.91XA Multiple drug overdose T50.911A Toxic encephalopathy G92.9 Suicidal ideation R45.851 Major depressive disorder F32.9 Attention-deficit hyperactivity disorder, unspecified type F90.9 Alcohol abuse F10.10 Borderline personality disorder F60.3 Time Spent (min) 12
[2025-01-21 19:50] VITALS: BP 123/84; PULSE 94; RESP 16; TEMP 37.2; O2SAT 97
--- NOTE | 2025-01-21 21:27 | PC.NURSE ---
MILAGRO [place] and Seroruy held ; Lithum 300 mg bid (09:00, 21:00), continue Thorazine 25 mg TID : T.O. @ 21:15 Dr. Carey
[2025-01-22 06:00] VITALS: BP 121/84; PULSE 104; RESP 17; TEMP 36.9; O2SAT 99
[2025-01-22] MEDS: venlafaxine ER (24HR) 75 mg Capsule PO (08:18)
[2025-01-22 14:00] VITALS: BP 128/82; PULSE 106; RESP 18; TEMP 36.8; O2SAT 99
--- NOTE | 2025-01-22 15:51 | P.NPUPN_ITS ---
Subjective NPU 2 Subjective: Patient presented today reporting that he is doing fine. He was discussing the possibility of discharge and this bid writer discussed that given his last serious overdose attempt any plans for discharge without guardianship seems unreasonable given his escalating pattern of frequent hospitalizations and suicide attempts leading to him returning to the hospital. We discussed the likelihood of starting the paperwork today and trying to expedite the process of getting him in front of a band sawmill operator to determine whether the band sawmill operator agrees that conservatorship is necessary. He proceeded to lose his temper and punched a wall and get on the phone and scream to his mom and ultimately needed as needed medication to assist him in calming down. He denied any side effects to his medication. Mental Status Exam 2 MSE Comments: This is a well-nourished, well-developed, white male, in hospital scrubs seen in room with adequate grooming and poor eye contact. There was no evidence of any abnormal involuntary motor movements, except for psychomotor retardation. He was cooperative with exam. Speech was mostly normal in rate and normal in volume, and normal in production. Mood described as okay. Affect was dysphoric. Thought process was linear and organized. Thought content: patient denies active homicidal ideation and denies active suicidal ideation with no plan at this time. Patient denied any auditory or visual hallucinations. There was no evidence of delusional thinking. Attention, concentration, and memory appeared intact. Alert and oriented times three. Insight was poor. Judgment was poor Impulse control was poor. Vitals/I&O/Wt Last Vital Signs Temp 98.2 F 01/22/25 14:00 Pulse 106 H 01/22/25 14:00 Resp 18 01/22/25 14:00 BP 128/82 01/22/25 14:00 Pulse Ox 99 01/22/25 14:00 O2 Del Method Room Air 01/22/25 06:00 O2 Flow Rate 6 01/19/25 04:45 FiO2 24 01/20/25 12:24 Physical Exam 2 Urinary Catheter Management: Perez: Cath Placed During This Visit: yes Urinary Catheter Date of Insertion: 01/19/25 Urinary Catheter Time of Insertion: 05:15 Data NPU 01/20/25 05:45 01/20/25 05:45 A&P Assessment and plan 1. Suicidal behavior with attempted self-injury: Patient is well-known to psychiatric unit because he has multiple past attempts spoke with Dr. Carey and we will sign off since the patient is medically doing fine and is released at this time. Dr. Carey states they are seeking court guardianship for him because the patient is at such high risk of repeat events 2. Multiple drug overdose: Ammonia was elevated but patient is not encephalopathic. He is encouraged to drink a gallon of water today and then a half a gallon daily at baseline 3. Toxic encephalopathy: Resolved 4. Suicidal ideation: Patient has history of suicidal ideation Patient with suicidal ideation with now attempted suicide leading to airway intubation Multiple offenses and being managed by psychiatry to try and protect the patient against self-harm and improve his mental stability 5. Major depressive disorder: Management deferred to psychiatry. Recurrent major depression as well as difficult behavior related to borderline personality disorder 6. Attention-deficit hyperactivity disorder, unspecified type: Management per psychiatry 7. Alcohol abuse: Patient has this history of alcohol abuse. Ethanol level was 0 8. Borderline personality disorder: Patient has had manipulative behaviors and historically has confronted staff about not helping him and that he is here for help. Recurrent multiple admissions. 9. Drug overdose: 10. Suicidal ideations: 11. PTSD (post-traumatic stress disorder): 12. Bipolar disorder with depression: 13. Suicide attempt: 14. Panic attacks: 15. History of OCD (obsessive compulsive disorder): Plan: 24-year-old white male extensive history of multiple inpatient hospitalizations with borderline personality traits, dysthymia, extremely poor coping skills and signficant attention seeking behavior who presents once again with suicidal ideation with overdose with intubation in ICU. Patient has poor impulse control and continued affective instability. 1. Encourage individual, group and milieu therapy. 2. Recommend sober living treatment at the highest level of care to which the patient is willing to commit. Possibility for rehab bed sooner rather than later so we will need to address whether he is safe and/or ready for this option. 3. Continue q-15 minute checks for safety 4. Will simplify medication regimen, these medications have been unhelpful and patient requires more intense psychotherapy possibly in ferry terminal agent facility. Patient requires case management services, intense DBT services. 5. Will restart [place] at 300mg twice a day only. Hold buspar, depakote. Will restart trazodone, and thorazine. Hold Effexor XR for now. 6. Patient likely to require court appointed guardianship. PDMP PDMP Reviewed: Not Reviewed Involuntary Hold Information 2 Hold Status: Legal Status: 96 Hour Hold Date/Time Hold Expires: 01/24/2025 @ 1300 96 Hour Hold: 96 Hour Involuntary Admission: Yes Other Hold: Hold End Date: 07/01/24 Attestations NPU 2 Medical Necessity Statement*: Inpatient hospitalization is medically necessary and the clinically appropriate intervention at this time. We will monitor medications and make changes as indicated. The patient's likely length of stay will exceed 14 days given plan for guardianship. Coding Level of Care Code Acute Code for Chg Fwd Diagnoses Suicidal behavior with attempted self-injury T14.91XA Multiple drug overdose T50.911A Toxic encephalopathy G92.9 Suicidal ideation R45.851 Major depressive disorder F32.9 Attention-deficit hyperactivity disorder, unspecified type F90.9 Alcohol abuse F10.10 Borderline personality disorder F60.3 Drug overdose T50.902A Encounter type: initial encounter Injury intent: intentional self-harm PTSD (post-traumatic stress disorder) F43.10 Bipolar disorder with depression F31.9 Suicide attempt T14.91XA Panic attacks F41.0 History of OCD (obsessive compulsive disorder) Z86.59
[2025-01-22 20:00] VITALS: BP 123/84; PULSE 94; RESP 18; TEMP 36.7; O2SAT 99
[2025-01-22] MEDS: diphenhydrAMINE 50 mg/mL SDV 1mL IM (20:10)
[2025-01-22] MEDS: haloperidol inj 5 mg/mL INJ 1 mL IM (20:10)
[2025-01-22] MEDS: LORazepam 1 MG/0.5 ML injection 2 MG IM (20:10)
--- NOTE | 2025-01-22 22:00 | PC.NURSE ---
BEHAVIORAL At approximately 1999, pt began to get agitated due to Provider telling him that he jennifer not be discharging. Pt walked to the phone and made a phone call. After the phone call was made pt began yelling at provider asking if his medications were going to be restarted. Pt then stating i know youre trying to fuck up my life, and then went down to his room. This nurse asked pt if he would like some medications to calm down and pt replied no i don't want some meds, i want my normal meds. Then stated i am this close to flipping the fuck out. This nurse informed nursing staff to notify HS and Security. This nurse pulled medications and then was informed by the physician that the pt had punched a hole in the wall of his room This nurse, nursing staff and Security entered the hallway with the pt and asked if he would take medications. Pt agreed. Benadryl 50mg IM was given in pts right deltoid and Ativan 2mg and Haldol 5mg IM were given in pts left deltoid. After medications were given this nurse walked with pt in the hallway for awhile and asked that in the future to come talk to nursing staff when he begins to feel agitated. This nurse then assessed pts right hand. Pts hand is noted to be red witha few scratches. Pt is able to move hand and fingers without pain. notified and gave orders that if pt begins complaining of pain to get an Xray but as of now we will keep an eye on him. Pt then got a snack and shortly after laid down and fell asleep. Behavioral monitoring continues
--- NOTE | 2025-01-23 06:30 | PC.NURSE ---
vital signs not collected, resp. 16, charge notified
[2025-01-23] MEDS: venlafaxine ER (24HR) 75 mg Capsule PO (08:56)
--- NOTE | 2025-01-23 13:53 | P.NPUPN_ITS ---
Subjective NPU 2 Subjective: Patient presented today reporting that he is still upset about being here but he is not going to fight this process because he wants to accomplish anything. He reports that he would not go to the hearings because at this point he knows that he is going to end up with a guardian and that some facility that he named that supposedly his mother has been already looking into. We discussed our goal of expediting the process such that we filed for his 21-day hold already and the documentation for the guardianship has already been filed today. He denied any side effects of his medication. Mental Status Exam 2 MSE Comments: This is a well-nourished, well-developed, white male, in hospital scrubs seen in room with adequate grooming and poor eye contact. There was no evidence of any abnormal involuntary motor movements, except for psychomotor retardation. He was more cooperative with exam. Speech was mostly normal in rate and normal in volume, and normal in production. Mood described as still angry. Affect was dysphoric. Thought process was linear and organized. Thought content: patient denies active homicidal ideation and denies active suicidal ideation with no plan at this time. Patient denied any auditory or visual hallucinations. There was no evidence of delusional thinking. Attention, concentration, and memory appeared intact. Alert and oriented times three. Insight was poor. Judgment was poor Impulse control was poor. Vitals/I&O/Wt Last Vital Signs Temp 98.1 F 01/22/25 20:00 Pulse 94 01/22/25 20:00 Resp 18 01/22/25 20:00 BP 123/84 01/22/25 20:00 Pulse Ox 99 01/22/25 20:00 O2 Del Method Room Air 01/22/25 20:00 O2 Flow Rate 6 01/19/25 04:45 FiO2 24 01/20/25 12:24 Physical Exam 2 Urinary Catheter Management: Perez: Cath Placed During This Visit: yes Urinary Catheter Date of Insertion: 01/19/25 Urinary Catheter Time of Insertion: 05:15 Data NPU 01/20/25 05:45 01/20/25 05:45 A&P Assessment and plan 1. Suicidal behavior with attempted self-injury: 2. Multiple drug overdose: 3. Toxic encephalopathy: 4. Suicidal ideation: 5. Major depressive disorder: 6. Attention-deficit hyperactivity disorder, unspecified type: 7. Alcohol abuse: Patient has this history of alcohol abuse. Ethanol level was 0 8. Borderline personality disorder: 9. Drug overdose: 10. Suicidal ideations: 11. PTSD (post-traumatic stress disorder): 12. Bipolar disorder with depression: 13. Suicide attempt: 14. Panic attacks: 15. History of OCD (obsessive compulsive disorder): Plan: 24-year-old white male extensive history of multiple inpatient hospitalizations with borderline personality traits, dysthymia, extremely poor coping skills and signficant attention seeking behavior who presents once again with suicidal ideation with overdose with intubation in ICU. Patient has poor impulse control and continued affective instability. 1. Encourage individual, group and milieu therapy. 2. Recommend sober living treatment at the highest level of care to which the patient is willing to commit. Possibility for rehab bed sooner rather than later so we will need to address whether he is safe and/or ready for this option. 3. Continue q-15 minute checks for safety 4. Will simplify medication regimen, these medications have been unhelpful and patient requires more intense psychotherapy possibly in halfway facility. Patient requires case management services, intense DBT services. 5. Will restart [place] at 300mg twice a day only. Hold buspar, depakote. Will restart trazodone, and thorazine. Hold Effexor XR for now. 6. Patient likely to require court appointed guardianship. PDMP PDMP Reviewed: Not Reviewed Involuntary Hold Information 2 Hold Status: Legal Status: 96 Hour Hold Date/Time Hold Expires: 01/24/2025 @ 1300 96 Hour Hold: 96 Hour Involuntary Admission: Yes Other Hold: Hold End Date: 07/01/24 Attestations NPU 2 Medical Necessity Statement*: Inpatient hospitalization is medically necessary and the clinically appropriate intervention at this time. We will monitor medications and make changes as indicated. The patient's likely length of stay will exceed 14 days given plan for guardianship. Coding Level of Care Code Acute Code for [facility] Fwd Diagnoses Suicidal behavior with attempted self-injury T14.91XA Multiple drug overdose T50.911A Toxic encephalopathy G92.9 Suicidal ideation R45.851 Major depressive disorder F32.9 Attention-deficit hyperactivity disorder, unspecified type F90.9 Alcohol abuse F10.10 Borderline personality disorder F60.3 Drug overdose T50.902A Encounter type: initial encounter Injury intent: intentional self-harm PTSD (post-traumatic stress disorder) F43.10 Bipolar disorder with depression F31.9 Suicide attempt T14.91XA Panic attacks F41.0 History of OCD (obsessive compulsive disorder) Z86.59
[2025-01-23 14:00] VITALS: BP 119/76; PULSE 116; RESP 18; TEMP 36.8; O2SAT 98
[2025-01-23] MEDS: LORazepam 1 MG/0.5 ML injection 2 MG IM (19:05)
[2025-01-23] MEDS: haloperidol inj 5 mg/mL INJ 1 mL IM (19:05)
[2025-01-23] MEDS: diphenhydrAMINE 50 mg/mL SDV 1mL IM (19:05)
[2025-01-23 20:22] VITALS: BP 109/70; PULSE 104; RESP 18; TEMP 36.8; O2SAT 97
[2025-01-24 06:00] VITALS: BP 114/79; PULSE 101; RESP 18; TEMP 36.8; O2SAT 100
[2025-01-24 07:08] VITALS: BP 109/63; PULSE 113; RESP 20; TEMP 36.4; O2SAT 98
--- NOTE | 2025-01-24 07:10 | PC.NURSE ---
Pt was seen in front of nurses station multiple times this morning holding his breath and stumbling around. He was instructed to sit down as not to fall. Pt would be seen in mirrors walking without incident down to his room. Shortly after at approx 0704 a loud band was heard from the pt room. Staff rushed down to find pt sitting in floor with his back leaning against the wall. When asked if he fell, pt states yeah . I asked if his head hurt and he states no He stated that he thought he popped his middle finger out of place There is a visible indentation in the wall above where pt was sitting. We got pt up out of floor and sat him on the bed. He refused assistance in getting up. His hand was inspected. No redness, swelling or abrasions noted. His fingers moved without incident. V/s were checked and nothing out of normal. Pt walked back to nurses station with staff and then went for breakfast.
[2025-01-24] MEDS: haloperidol inj 5 mg/mL INJ 1 mL IM ×2 (07:57→19:23)
[2025-01-24] MEDS: diphenhydrAMINE 50 mg/mL SDV 1mL IM ×2 (07:57→19:23)
[2025-01-24] MEDS: LORazepam 1 MG/0.5 ML injection 2 MG IM ×2 (07:57→19:23)
--- NOTE | 2025-01-24 07:59 | CT_ITS ---
WS: [id number] CT HEAD TECHNIQUE: Noncontrast CT of the head obtained from the skullbase to the vertex. CLINICAL INFORMATION: Fall and hit head COMPARISON: 12/22/2024 DLP: 1143.[address] scans at [facility] use at least one of these dose optimization techniques: automated exposure control; mA and/or kV adjustment per patient size (includes targeted exams where dose is matched to clinical indication); or iterative reconstruction. FINDINGS: No evidence of intracranial hemorrhage or mass effect. Ventricular system and basal cisterns are patent. No extra-axial fluid collections. No evidence of mass or mass effect. Normal peña-white differentiation. Incidental slightly low-lying cerebellar tonsils Paranasal sinuses and mastoid air cells are well aerated. .Normal visualized soft tissues. CT/CT head wo con* [id number] IMPRESSION: 1. No evidence of intracranial hemorrhage or mass effect. 2. No acute intracranial findings.
--- NOTE | 2025-01-24 08:01 | PC.NURSE ---
Pt had an unwitnessed fall at nurses station at approx 0735, hitting up against the door. When staff made it to the pt to check on him and help him up he began screaming and yelling to leave him alone and stop treating him like a child. No one wanted to help him anyways we only showed up to help after he had fallen. Pt went straight to the phone and began making phone calls. Security was called and pt was given injections (see mar) at 0740. Pt accepted the injections without incident and went to his room to rest.
--- NOTE | 2025-01-24 08:06 | PC.NURSE ---
CT of head ordered per Dr. Bowie after fall.
[2025-01-24] MEDS: venlafaxine ER (24HR) 75 mg Capsule PO (08:45)
--- NOTE | 2025-01-24 13:10 | W.PM.NPUPNS ---
Subjective NPU Subjective: Patient presented today reporting that he is feeling fine. However he had significant activity today per staff reports and some direct observation with him having multiple falling incidents. This is consistent with his last hospitalization where he seemed to have this very attention driven falls that had various appearances to them. At times the falls were suggestive of seizure activity per staff reports and direct observation but after having tonic-clonic behavior he would seconds later be up and walking normally. He reported that he felt the Thorazine was causing this behavior and we agreed to discontinue but also discussed the fact that 75 mg of Thorazine would not typically result in this kind of functioning. He continues to report he will not participate in any hearings because he has no way of getting an alternative outcome. He otherwise denies any side effects of the medication. Mental Status Exam MSE Comments: This is a well-nourished, well-developed, white male, in hospital scrubs seen in room with adequate grooming and poor eye contact. There was no evidence of any abnormal involuntary motor movements, except for psychomotor retardation. He was more cooperative with exam. Speech was mostly normal in rate and normal in volume, and normal in production. Mood described as still angry. Affect was dysphoric. Thought process was linear and organized. Thought content: patient denies active homicidal ideation and denies active suicidal ideation with no plan at this time. Patient denied any auditory or visual hallucinations. There was no evidence of delusional thinking. Attention, concentration, and memory appeared intact. Alert and oriented times three. Insight was poor. Judgment was poor Impulse control was poor. Vitals/I&O/Wt Last Vital Signs Temp 97.6 F 01/24/25 07:08 Pulse 113 H 01/24/25 07:08 Resp 20 H 01/24/25 07:08 BP 109/63 01/24/25 07:08 Pulse Ox 98 01/24/25 07:08 O2 Del Method Room Air 01/24/25 07:08 O2 Flow Rate 6 01/19/25 04:45 FiO2 24 01/20/25 12:24 Physical Exam Urinary Catheter Management: Perez: Cath Placed During This Visit: yes Urinary Catheter Date of Insertion: 01/19/25 Urinary Catheter Time of Insertion: 05:15 Data NPU 01/20/25 05:45 01/20/25 05:45 A&P Assessment and plan 1. Suicidal behavior with attempted self-injury: 2. Multiple drug overdose: 3. Toxic encephalopathy: 4. Suicidal ideation: 5. Major depressive disorder: 6. Attention-deficit hyperactivity disorder, unspecified type: 7. Alcohol abuse: Patient has this history of alcohol abuse. Ethanol level was 0 8. Borderline personality disorder: 9. Drug overdose: 10. Suicidal ideations: 11. PTSD (post-traumatic stress disorder): 12. Bipolar disorder with depression: 13. Suicide attempt: 14. Panic attacks: 15. History of OCD (obsessive compulsive disorder): Plan: 24-year-old white male extensive history of multiple inpatient hospitalizations with borderline personality traits, dysthymia, extremely poor coping skills and signficant attention seeking behavior who presents once again with suicidal ideation with overdose with intubation in ICU. Patient has poor impulse control and continued affective instability. 1. Encourage individual, group and milieu therapy. 2. Recommend sober living treatment at the highest level of care to which the patient is willing to commit. Possibility for rehab bed sooner rather than later so we will need to address whether he is safe and/or ready for this option. 3. Continue q-15 minute checks for safety 4. 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 Patient requires case management services, intense DBT services. 5. Will restart [place] at 300mg twice a day only. Hold buspar, depakote. Will restart trazodone, and thorazine. Hold Effexor XR for now. Will discontinue Thorazine as patient reporting that he feels like that is what has been making him fall with regularity now. However this behavior has been seen in previous hospitalizations and appears intentional. 6. Patient likely to require court appointed guardianship. PDMP PDMP Reviewed: Not Reviewed Involuntary Hold Information Hold Status: Legal Status: 96 Hour Hold Date/Time Hold Expires: 01/24/2025 @ 1300 96 Hour Hold: 96 Hour Involuntary Admission: Yes Other Hold: Hold End Date: 07/01/24 Attestations NPU Medical Necessity Statement*: Inpatient hospitalization is medically necessary and the clinically appropriate intervention at this time. We will monitor medications and make changes as indicated. The patient's likely length of stay will exceed 14 days given plan for guardianship. Coding Level of Care Code Acute Code for [facility] Fwd Diagnoses Suicidal behavior with attempted self-injury T14.91XA Multiple drug overdose T50.911A Toxic encephalopathy G92.9 Suicidal ideation R45.851 Major depressive disorder F32.9 Attention-deficit hyperactivity disorder, unspecified type F90.9 Alcohol abuse F10.10 Borderline personality disorder F60.3 Drug overdose T50.902A Encounter type: initial encounter Injury intent: intentional self-harm PTSD (post-traumatic stress disorder) F43.10 Bipolar disorder with depression F31.9 Suicide attempt T14.91XA Panic attacks F41.0 History of OCD (obsessive compulsive disorder) Z86.59
[2025-01-24 14:00] VITALS: BP 114/71; PULSE 130; RESP 18; TEMP 36.4; O2SAT 98
--- NOTE | 2025-01-24 18:51 | PC.NURSE ---
Pt requested that Dr. Bowie stop his Thorazine. Dr. Bowie approved. Medication has been stopped.
[2025-01-24 20:37] VITALS: BP 109/72; PULSE 127; RESP 20; TEMP 36.6; O2SAT 97
--- NOTE | 2025-01-24 20:42 | PC.ADMIT ---
[email or web address] Admission Note: The patient,Parth Newman,24 y/o, was given written information regarding hospital policies, unit procedures and contact persons. Patient's smoking status: smoker, details unknown. Vital Signs - 8 hr 01/24/25 14:00 01/24/25 20:37 Temperature 97.6 F 97.9 F Pulse Rate 130 H 127 H Respiratory Rate 18 20 H Blood Pressure 114/71 109/72 Pulse Oximetry 98 97 Oxygen Delivery Method Room Air
--- NOTE | 2025-01-24 20:42 | PC.NURSE ---
Patient found on floor after apparent witnessed intentional fall. Patient says that he bumped his head. This rn felt no abnormal lumps or concave areas on his skull. His ALISON. He moved all extremities and gait was steady. Educated patient on high fall precautions and to request staff to ambulate with him to monitor his gait. Patient states that he felt like a static in his body right before he fell. VS taken and were WNL
--- NOTE | 2025-01-25 06:25 | PC.NURSE ---
pt refused vs, charge nurse notified resp 16
[2025-01-25] MEDS: venlafaxine ER (24HR) 75 mg Capsule PO (08:19)
--- NOTE | 2025-01-25 13:28 | P.NPUPN_ITS ---
Subjective NPU 2 Subjective: Patient presented today reporting that he is still having falls. He reports that he does not know why he is falling and we discussed whether had something to do with his being frustrated with this situation. He said he did not know why he was falling but then nearly fell as the conversation was going on. Otherwise he is taking his medication as prescribed he denied any side effects of the medications that remain. Mental Status Exam 2 MSE Comments: This is a well-nourished, well-developed, white male, in hospital scrubs seen in room with adequate grooming and poor eye contact. There was no evidence of any abnormal involuntary motor movements, except for psychomotor retardation. He was more cooperative with exam. Speech was mostly normal in rate and normal in volume, and normal in production. Mood described as still angry. Affect was dysphoric. Thought process was linear and organized. Thought content: patient denies active homicidal ideation and denies active suicidal ideation with no plan at this time. Patient denied any auditory or visual hallucinations. There was no evidence of delusional thinking. Attention, concentration, and memory appeared intact. Alert and oriented times three. Insight was poor. Judgment was poor Impulse control was poor. Vitals/I&O/Wt Last Vital Signs Temp 97.9 F 01/24/25 20:37 Pulse 127 H 01/24/25 20:37 Resp 20 H 01/24/25 20:37 BP 109/72 01/24/25 20:37 Pulse Ox 97 01/24/25 20:37 O2 Del Method Room Air 01/24/25 20:37 O2 Flow Rate 6 01/19/25 04:45 FiO2 24 01/20/25 12:24 Physical Exam 2 Urinary Catheter Management: Perez: Cath Placed During This Visit: yes Urinary Catheter Date of Insertion: 01/19/25 Urinary Catheter Time of Insertion: 05:15 Data NPU 01/20/25 05:45 01/20/25 05:45 A&P Assessment and plan 1. Suicidal behavior with attempted self-injury: 2. Multiple drug overdose: 3. Toxic encephalopathy: 4. Suicidal ideation: 5. Major depressive disorder: 6. Attention-deficit hyperactivity disorder, unspecified type: 7. Alcohol abuse: Patient has this history of alcohol abuse. Ethanol level was 0 8. Borderline personality disorder: 9. Drug overdose: 10. Suicidal ideations: 11. PTSD (post-traumatic stress disorder): 12. Bipolar disorder with depression: 13. Suicide attempt: 14. Panic attacks: 15. History of OCD (obsessive compulsive disorder): Plan: 24-year-old white male extensive history of multiple inpatient hospitalizations with borderline personality traits, dysthymia, extremely poor coping skills and signficant attention seeking behavior who presents once again with suicidal ideation with overdose with intubation in ICU. Patient has poor impulse control and continued affective instability. 1. Encourage individual, group and milieu therapy. 2. Recommend sober living treatment at the highest level of care to which the patient is willing to commit. Possibility for rehab bed sooner rather than later so we will need to address whether he is safe and/or ready for this option. 3. Continue q-15 minute checks for safety 4. 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 Patient requires case management services, intense DBT services. 5. Will restart [place] at 300mg twice a day only. Hold buspar, depakote. Will restart trazodone, and thorazine. Hold Effexor XR for now. Will discontinue Thorazine as patient reporting that he feels like that is what has been making him fall with regularity now. However this behavior has been seen in previous hospitalizations and appears intentional. His falls have gotten more frequent. 6. Patient likely to require court appointed guardianship. PDMP PDMP Reviewed: Not Reviewed Involuntary Hold Information 2 Hold Status: Legal Status: 96 Hour Hold Date/Time Hold Expires: 01/24/2025 @ 1300 96 Hour Hold: 96 Hour Involuntary Admission: Yes Other Hold: Hold End Date: 07/01/24 Attestations NPU 2 Medical Necessity Statement*: Inpatient hospitalization is medically necessary and the clinically appropriate intervention at this time. We will monitor medications and make changes as indicated. The patient's likely length of stay will exceed 14 days given plan for guardianship. Coding Level of Care Code Acute Code for [facility] Fwd Diagnoses Suicidal behavior with attempted self-injury T14.91XA Multiple drug overdose T50.911A Toxic encephalopathy G92.9 Suicidal ideation R45.851 Major depressive disorder F32.9 Attention-deficit hyperactivity disorder, unspecified type F90.9 Alcohol abuse F10.10 Borderline personality disorder F60.3 Drug overdose T50.902A Encounter type: initial encounter Injury intent: intentional self-harm PTSD (post-traumatic stress disorder) F43.10 Bipolar disorder with depression F31.9 Suicide attempt T14.91XA Panic attacks F41.0 History of OCD (obsessive compulsive disorder) Z86.59
[2025-01-25 14:00] VITALS: BP 127/83; PULSE 78; RESP 18; TEMP 36.8; O2SAT 98
--- NOTE | 2025-01-25 14:19 | PC.NURSE ---
Pt fell cose to a doorway with no witnesses, No injuries occurred. Hewas assisted by staff.
--- NOTE | 2025-01-25 14:21 | PC.NURSE ---
Pt fell bottom first and sustained no injuriesm it would appear to staff involved thst this was intentional behavior
--- NOTE | 2025-01-25 17:55 | PC.NURSE ---
Pt was in dayroom watching tv. PSA staff was present with another pt. Pt was witnessed by staff dropping himself to his bottom and hitting his head off the table. Pt came up the ibarra telling staff he was okay. v/s were checked and wnl. Head was inspected with no visible lacerations. Dr. Bowie was notified.
[2025-01-25] MEDS: haloperidol inj 5 mg/mL INJ 1 mL IM (19:00)
[2025-01-25] MEDS: diphenhydrAMINE 50 mg/mL SDV 1mL IM (19:00)
[2025-01-25] MEDS: LORazepam 1 MG/0.5 ML injection 2 MG IM (19:00)
[2025-01-25 20:16] VITALS: BP 116/77; PULSE 104; RESP 18; TEMP 37.2; O2SAT 96
[2025-01-26 06:00] VITALS: BP 123/85; PULSE 80; RESP 18; TEMP 36.6; O2SAT 97
[2025-01-26] MEDS: venlafaxine ER (24HR) 75 mg Capsule PO (08:10)
--- NOTE | 2025-01-26 08:39 | W.PM.NPUPNS ---
Subjective NPU Subjective: Patient presented today reporting that he is doing okay I guess. However he continues to struggle dramatically per staff reports and direct observation. His falls are increasing without explanation and we discussed what he thought was going on which he was unaware of why this keeps happening. He had no explanation for why he is having multiple episodes where he needs as needed medications which is leading to seclusions and restraints in an attempt to decrease or eliminate these falls. We discussed that there is no clear side effect of the medication that is ever led to these behaviors in my history which would mean that they are intentional but he had no response for that. He denied any clear side effects of medications and we discussed the possibility that we might have the neurologist take a look at him but it is unclear that this would be helpful. Mental Status Exam MSE Comments: This is a well-nourished, well-developed, white male, in hospital scrubs seen in room with adequate grooming and poor eye contact. There was no evidence of any abnormal involuntary motor movements, except for psychomotor retardation. He was more cooperative with exam and the fact that he was more open to answering questions. Speech was mostly decreased in rate and volume, and normal in production. Mood described as I had on the low. Affect was dysphoric. Thought process was linear and organized. Thought content: patient denies active homicidal ideation and denies active suicidal ideation with no plan at this time. However he continues to have what must be interpreted as self-injurious behavior as he continues to fall to the ground inexplicably. Patient denied any auditory or visual hallucinations. There was no evidence of delusional thinking. Attention, concentration, and memory appeared intact. He is alert and oriented times three. Insight was poor. Judgment was poor Impulse control was poor. Vitals/I&O/Wt Last Vital Signs Temp 97.9 F 01/26/25 06:00 Pulse 80 01/26/25 06:00 Resp 18 01/26/25 06:00 BP 123/85 01/26/25 06:00 Pulse Ox 97 01/26/25 06:00 O2 Del Method Room Air 01/26/25 06:00 O2 Flow Rate 6 01/19/25 04:45 FiO2 24 01/20/25 12:24 Physical Exam Urinary Catheter Management: Perez: Cath Placed During This Visit: yes Urinary Catheter Date of Insertion: 01/19/25 Urinary Catheter Time of Insertion: 05:15 Data NPU 01/20/25 05:45 01/20/25 05:45 Micro: Microbiology 01/19/25 10:10 Gram Stain - Final Sputum - Endotracheal Tube Aspirate Sputum Culture - Final Microbiology 01/19/25 10:10 Sputum - Endotracheal Tube Aspirate Gram Stain - Final 01/19/25 10:10 Sputum - Endotracheal Tube Aspirate Sputum Culture - Final A&P Assessment and plan 1. Suicidal behavior with attempted self-injury: 2. Multiple drug overdose: 3. Toxic encephalopathy: 4. Suicidal ideation: 5. Major depressive disorder: 6. Attention-deficit hyperactivity disorder, unspecified type: 7. Alcohol abuse: Patient has this history of alcohol abuse. Ethanol level was 0 8. Borderline personality disorder: 9. Drug overdose: 10. Suicidal ideations: 11. PTSD (post-traumatic stress disorder): 12. Bipolar disorder with depression: 13. Suicide attempt: 14. Panic attacks: 15. History of OCD (obsessive compulsive disorder): Plan: 24-year-old white male extensive history of multiple inpatient hospitalizations with borderline personality traits, dysthymia, extremely poor coping skills and signficant attention seeking behavior who presents once again with suicidal ideation with overdose with intubation in ICU. Patient has poor impulse control and continued affective instability. 1. Encourage individual, group and milieu therapy. 2. Recommend sober living treatment at the highest level of care to which the patient is willing to commit. Possibility for rehab bed sooner rather than later so we will need to address whether he is safe and/or ready for this option. 3. Continue one-to-one that she has been on for some time. 4. 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 Patient requires case management services, intense DBT services. 5. Will restart [place] at 300mg twice a day only. Hold buspar, depakote. Will restart trazodone, and thorazine. Hold Effexor XR for now. Will discontinue Thorazine as patient reporting that he feels like that is what has been making him fall with regularity now. However this behavior has been seen in previous hospitalizations and appears intentional. His falls have gotten more frequent. May consider Geodon or some other antipsychotic. 6. Patient likely to require court appointed guardianship. PDMP PDMP Reviewed: Not Reviewed Involuntary Hold Information Hold Status: Legal Status: 96 Hour Hold Date/Time Hold Expires: 01/24/2025 @ 1300 96 Hour Hold: 96 Hour Involuntary Admission: Yes Other Hold: Hold End Date: 07/01/24 Attestations NPU Medical Necessity Statement*: Inpatient hospitalization is medically necessary and the clinically appropriate intervention at this time. We will monitor medications and make changes as indicated. The patient's likely length of stay will exceed 14 days given plan for guardianship. Coding Level of Care Code Acute Code for [facility] Fwd Diagnoses Suicidal behavior with attempted self-injury T14.91XA Multiple drug overdose T50.911A Toxic encephalopathy G92.9 Suicidal ideation R45.851 Major depressive disorder F32.9 Attention-deficit hyperactivity disorder, unspecified type F90.9 Alcohol abuse F10.10 Borderline personality disorder F60.3 Drug overdose T50.902A Encounter type: initial encounter Injury intent: intentional self-harm PTSD (post-traumatic stress disorder) F43.10 Bipolar disorder with depression F31.9 Suicide attempt T14.91XA Panic attacks F41.0 History of OCD (obsessive compulsive disorder) Z86.59
--- NOTE | 2025-01-26 09:39 | PC.NURSE ---
restrained/Geodon patient attempted to fall twice earlier, 1:1 sitter caught patient both times and lowered him to the floor. Dr. Bowie made aware of behaviors, phone call made by this nurse to physician & verbal order given to give Geodon 20 mg IM x1 now, & put patient in restraints. continued 1:1 with sitter. pharmacist in charge owner to restraint room to physically check patient over. patient does not appear to be in any distress currently. Geodon 20 mg given IM in right deltoid, patient tolerated injection well.
[2025-01-26 09:41] VITALS: BP 121/74; PULSE 83; RESP 17; TEMP 36.6; O2SAT 97
[2025-01-26] MEDS: water for injection-sterile 10 ML (09:57)
[2025-01-26 14:00] VITALS: BP 118/73; PULSE 108; RESP 16; TEMP 36.8; O2SAT 97
[2025-01-26 14:09] VITALS: BP 127/75; PULSE 85; RESP 18; TEMP 36.8; O2SAT 99
[2025-01-26] MEDS: haloperidol inj 5 mg/mL INJ 1 mL 10 MG IM ×2 (14:47→19:03)
[2025-01-26] MEDS: diphenhydrAMINE 50 mg/mL SDV 1mL IM ×2 (14:48→19:04)
--- NOTE | 2025-01-26 14:49 | PC.NURSE ---
restraint/PRN Haldol & Benadryl patient was in bathroom by nurses station with door shut. loud noise heard from bathroom, staff immediately responded, 1:1 sitter opened door first to restroom. patient appeared to be getting up from the floor, when asked if he was okay he replied yes but then would not answer questions asked by extension service specialist in charge. Dr. Bowie notified by phone about possible self harm behaviors, telephone order received to put patient in restraints, also give Haldol 10 mg IM & Benadryl 50 mg IM & keep patient in restraints for 45 minutes-hour after medications given to achieve desired results. patient put in restraints by extension service specialist in charge & 1:1 sitter, vital signs checked & are as follows: bp 127/75, hr 85, resp 18, temp 98.2, oxygen level 99% on room air. injections given by extension service specialist in charge, Haldol in left deltoid & Benadryl in right deltoid.
--- NOTE | 2025-01-26 19:12 | PC.NURSE ---
pt restraints pt was in restraints when this nurse arrived. this nurse and dayshift nurse assessed pt four limb restraints at this time. able to move all extremities. cap refill normal. pt educated on why he is currently in restraints. this nurse called house sup, security, and physician for new orders per dayshift rn. pt given meds per physician order. pt compliant with med administration. pt is diaphoretic at the time of this nurses arrival. pt was wiped down and given a drink of water. pt stated he neded to urinate so he was offered a urinal however was unable to go.
--- NOTE | 2025-01-26 20:52 | PC.NURSE ---
pt phone call pt made a phone call at this time. pt was frustrated with phone call and the questions they were asking.
[2025-01-26 22:00] VITALS: BP 128/83; PULSE 72; RESP 19; TEMP 36.4; O2SAT 99
--- NOTE | 2025-01-27 00:49 | PC.NURSE ---
pt restraints removal Right arm: 1927 Left le Left arm: 1958 Right le pt to room with stand by assistance by this nurse at 2014 all cap refill, color and movement were within normal limits after each removal. pt complained of no pain after release of each limb.
[2025-01-27 06:00] VITALS: BP 124/78; PULSE 133; RESP 22; TEMP 36.7; O2SAT 99
[2025-01-27] MEDS: venlafaxine ER (24HR) 75 mg Capsule PO (07:57)
--- NOTE | 2025-01-27 08:02 | PC.NURSE ---
Pt walking around near nurses station / pt phone area, crying, and dragging his L foot. This nurse asked the pt what issue he was having with his foot and the pt stated I dont know, it is locked up and it hurts . Pt was helped back to his room to lay down / relax and administered his AM medications along with PRN PO Propranolol and Cogentin. Pt now laying in bed w/ sitter present.
[2025-01-27] MEDS: diphenhydrAMINE 50 mg/mL SDV 1mL IM (08:30)
[2025-01-27 14:00] VITALS: BP 121/75; PULSE 88; RESP 18; TEMP 36.6; O2SAT 97
--- NOTE | 2025-01-27 18:29 | P.NPUPN_ITS ---
Subjective NPU 2 Subjective: Patient presented today unchanged and without any new reports. We continued to discuss the hearing tomorrow for his 21-day hold as well as the expedited hopes for guardianship given that he is in this county and the court has been kind in getting these people and so that they do not have to be hospitalized any longer than is necessary. He continued to have falls and required seclusion and restraint. Mental Status Exam 2 MSE Comments: This is a well-nourished, well-developed, white male, in hospital scrubs seen in room with adequate grooming and poor eye contact. There was no evidence of any abnormal involuntary motor movements, except for psychomotor retardation. He was more cooperative with exam and the fact that he was more open to answering questions. Speech was mostly decreased in rate and volume, and normal in production. Mood described as I had on the low. Affect was dysphoric. Thought process was linear and organized. Thought content: patient denies active homicidal ideation and denies active suicidal ideation with no plan at this time. However he continues to have what must be interpreted as self-injurious behavior as he continues to fall to the ground inexplicably. Patient denied any auditory or visual hallucinations. There was no evidence of delusional thinking. Attention, concentration, and memory appeared intact. He is alert and oriented times three. Insight was poor. Judgment was poor Impulse control was poor. Vitals/I&O/Wt Last Vital Signs Temp 98 F 01/27/25 14:00 Pulse 88 01/27/25 14:00 Resp 18 01/27/25 14:00 BP 121/75 01/27/25 14:00 Pulse Ox 97 01/27/25 14:00 O2 Del Method Room Air 01/27/25 06:00 O2 Flow Rate 6 01/19/25 04:45 FiO2 24 01/20/25 12:24 01/27/25 01/27/25 01/27/25 06:59 14:59 22:59 Intake Total Balance Physical Exam 2 Urinary Catheter Management: Perez: Cath Placed During This Visit: yes Urinary Catheter Date of Insertion: 01/19/25 Urinary Catheter Time of Insertion: 05:15 Data NPU 01/20/25 05:45 01/20/25 05:45 A&P Assessment and plan 1. Suicidal behavior with attempted self-injury: 2. Multiple drug overdose: 3. Toxic encephalopathy: 4. Suicidal ideation: 5. Major depressive disorder: 6. Attention-deficit hyperactivity disorder, unspecified type: 7. Alcohol abuse: Patient has this history of alcohol abuse. Ethanol level was 0 8. Borderline personality disorder: 9. Drug overdose: 10. Suicidal ideations: 11. PTSD (post-traumatic stress disorder): 12. Bipolar disorder with depression: 13. Suicide attempt: 14. Panic attacks: 15. History of OCD (obsessive compulsive disorder): Plan: 24-year-old white male extensive history of multiple inpatient hospitalizations with borderline personality traits, dysthymia, extremely poor coping skills and signficant attention seeking behavior who presents once again with suicidal ideation with overdose with intubation in ICU. Patient has poor impulse control and continued affective instability. 1. Encourage individual, group and milieu therapy. 2. Recommend sober living treatment at the highest level of care to which the patient is willing to commit. Possibility for rehab bed sooner rather than later so we will need to address whether he is safe and/or ready for this option. 3. Continue one-to-one that she has been on for some time. 4. Will simplify medication regimen, these medications have been unhelpful and patient requires more intense psychotherapy possibly in long-term facility. Patient requires case management services, intense DBT services. 5. Will restart [place] at 300mg twice a day only. Hold buspar, depakote. Will restart trazodone, and thorazine. Hold Effexor XR for now. Will discontinue Thorazine as patient reporting that he feels like that is what has been making him fall with regularity now. However this behavior has been seen in previous hospitalizations and appears intentional. His falls have gotten more frequent. May consider Geodon or some other antipsychotic. 6. Patient likely to require court appointed guardianship. PDMP PDMP Reviewed: Not Reviewed Involuntary Hold Information 2 Hold Status: Legal Status: 96 Hour Hold Date/Time Hold Expires: 01/24/2025 @ 1300 96 Hour Hold: 96 Hour Involuntary Admission: Yes Other Hold: Hold End Date: 07/01/24 Attestations NPU 2 Medical Necessity Statement*: Inpatient hospitalization is medically necessary and the clinically appropriate intervention at this time. We will monitor medications and make changes as indicated. The patient's likely length of stay will exceed 14 days given plan for guardianship. Coding Level of Care Code Acute Code for Chg Fwd Diagnoses Suicidal behavior with attempted self-injury T14.91XA Multiple drug overdose T50.911A Toxic encephalopathy G92.9 Suicidal ideation R45.851 Major depressive disorder F32.9 Attention-deficit hyperactivity disorder, unspecified type F90.9 Alcohol abuse F10.10 Borderline personality disorder F60.3 Drug overdose T50.902A Encounter type: initial encounter Injury intent: intentional self-harm PTSD (post-traumatic stress disorder) F43.10 Bipolar disorder with depression F31.9 Suicide attempt T14.91XA Panic attacks F41.0 History of OCD (obsessive compulsive disorder) Z86.59
[2025-01-27 22:00] VITALS: RESP 18
--- NOTE | 2025-01-27 22:00 | PC.NURSE ---
Patient refused vitals nurse notified
[2025-01-28 01:34] VITALS: BP 129/79; PULSE 97; RESP 18; TEMP 36.8; O2SAT 96
--- NOTE | 2025-01-28 01:35 | PC.NURSE ---
Patient went to the bathroom and stumbled and fell on his butt. His sitter saw it happen under the door and notified staff. Vitals taken WNL, nurse notified patient now resting in bed.
--- NOTE | 2025-01-28 01:39 | PC.NURSE ---
At about 01:33 the patients 1:1 sitter (Marija MORIN) reported that while the patient was in the bathroom he fell back onto his buttocks. Patients Vital signs were WNL T:98.2, P:97, R:18, B/P:129/79, O2:96%. Patient stated that he did not incur any injury, nor did he hit his head. He stated that he was not experiencing any discomfort and it was more of a controlled sit down on to my butt really . Incident report and fall Huddle worksheet complete and notification was given to Hortencia Camp stonework supervisor, Nelly SIMPSON unit/clinical Pipe Smoking Machine Operator via Phone. We will continue to closely monitor patient for any residual effects.
[2025-01-28 06:00] VITALS: RESP 18
--- NOTE | 2025-01-28 06:21 | PC.NURSE ---
Patient refused nurse notified.
[2025-01-28] MEDS: venlafaxine ER (24HR) 75 mg Capsule PO (07:28)
--- NOTE | 2025-01-28 08:01 | PC.NURSE ---
Pt. got up this am ate breakfast, took meds and while at the nurses station while waiting to take his medications fell onto buttocks with no injury, then 5 min later was walking down the [place]ar[place] and fell again, presumably intentional. Pt. is currently in restraints to prevent harm to self. Pt. was just checked on while in restraints no issues with blood flow to all extremities. Pt. is raising up, and yelling out at staff being argumentative. Dr. Bowie and rides supervisor was informed by phone of the falls and that pt. is in restraints.
[2025-01-28 14:00] VITALS: BP 110/72; PULSE 88; RESP 18; TEMP 37.2; O2SAT 98
--- NOTE | 2025-01-28 15:50 | P.NPUPN_ITS ---
Subjective NPU 2 Subjective: Patient presented today reporting that he doing okay. He went to his 21-day hold hearing and did not testify and just heard the proceedings. We discussed the fact that his guardianship paperwork has been filed in hopes are that he has a hearing within the next week. He continued to have falls but appeared to be less often per staff reports and direct observation. He continued to deny any idea why the falls were occurring. We discussed the risks, benefits and alternatives of restarting his BuSpar for anxiety and he understood and agreed to proceed as is documented in this note. He denied any side effects to medication. Mental Status Exam 2 MSE Comments: This is a well-nourished, well-developed, white male, in hospital scrubs seen in room with adequate grooming and poor eye contact. There was no evidence of any abnormal involuntary motor movements, except for psychomotor retardation. He was more cooperative with exam. Speech was mostly decreased in rate and volume, and normal in production. Mood described as okay I guess. Affect was slightly less dysphoric. Thought process was linear and organized. Thought content: patient denies active homicidal ideation and denies active suicidal ideation with no plan at this time. However he continues to have what must be interpreted as self-injurious behavior as he continues to fall to the ground inexplicably. Patient denied any auditory or visual hallucinations. There was no evidence of delusional thinking. Attention, concentration, and memory appeared intact. He is alert and oriented times three. Insight was poor. Judgment was poor Impulse control was poor. Vitals/I&O/Wt Last Vital Signs Temp 98.8 F 01/28/25 19:35 Pulse 74 01/28/25 19:35 Resp 16 01/28/25 19:35 BP 126/77 01/28/25 19:35 Pulse Ox 97 01/28/25 19:35 O2 Del Method Room Air 01/28/25 19:35 O2 Flow Rate 6 01/19/25 04:45 FiO2 24 01/20/25 12:24 Physical Exam 2 Urinary Catheter Management: Perez: Cath Placed During This Visit: yes Urinary Catheter Date of Insertion: 01/19/25 Urinary Catheter Time of Insertion: 05:15 Data NPU 01/20/25 05:45 01/20/25 05:45 A&P Assessment and plan 1. Suicidal behavior with attempted self-injury: 2. Multiple drug overdose: 3. Toxic encephalopathy: 4. Suicidal ideation: 5. Major depressive disorder: 6. Attention-deficit hyperactivity disorder, unspecified type: 7. Alcohol abuse: Patient has this history of alcohol abuse. Ethanol level was 0 8. Borderline personality disorder: 9. Drug overdose: 10. Suicidal ideations: 11. PTSD (post-traumatic stress disorder): 12. Bipolar disorder with depression: 13. Suicide attempt: 14. Panic attacks: 15. History of OCD (obsessive compulsive disorder): Plan: 24-year-old white male extensive history of multiple inpatient hospitalizations with borderline personality traits, dysthymia, extremely poor coping skills and signficant attention seeking behavior who presents once again with suicidal ideation with overdose with intubation in ICU. Patient has poor impulse control and continued affective instability. 1. Encourage individual, group and milieu therapy. 2. Recommend sober living treatment at the highest level of care to which the patient is willing to commit. Possibility for rehab bed sooner rather than later so we will need to address whether he is safe and/or ready for this option. 3. Continue one-to-one that she has been on for some time. 4. Will simplify medication regimen, these medications have been unhelpful and patient requires more intense psychotherapy possibly in termite exterminator facility. Patient requires case management services, intense DBT services. 5. Will restart [place] at 300mg twice a day only. Hold buspar, depakote. Will restart trazodone, and thorazine. Hold Effexor XR for now. Will discontinue Thorazine as patient reporting that he feels like that is what has been making him fall with regularity now. However this behavior has been seen in previous hospitalizations and appears intentional. His falls have gotten more frequent. May consider Geodon or some other antipsychotic. Will restart BuSpar. 6. Patient likely to require court appointed guardianship. 21-day hold hearing today and 21-day hold granted. All paperwork for guardianship has been submitted. PDMP PDMP Reviewed: Not Reviewed Involuntary Hold Information 2 Hold Status: Legal Status: 96 Hour Hold Date/Time Hold Expires: 02/18/2025 96 Hour Hold: 96 Hour Involuntary Admission: Yes Other Hold: Hold End Date: 07/01/24 Attestations NPU 2 Medical Necessity Statement*: Inpatient hospitalization is medically necessary and the clinically appropriate intervention at this time. We will monitor medications and make changes as indicated. The patient's likely length of stay will exceed 14 days given plan for guardianship. Coding Level of Care Code Acute Code for Chg Fwd Diagnoses Suicidal behavior with attempted self-injury T14.91XA Multiple drug overdose T50.911A Toxic encephalopathy G92.9 Suicidal ideation R45.851 Major depressive disorder F32.9 Attention-deficit hyperactivity disorder, unspecified type F90.9 Alcohol abuse F10.10 Borderline personality disorder F60.3 Drug overdose T50.902A Encounter type: initial encounter Injury intent: intentional self-harm PTSD (post-traumatic stress disorder) F43.10 Bipolar disorder with depression F31.9 Suicide attempt T14.91XA Panic attacks F41.0 History of OCD (obsessive compulsive disorder) Z86.59
--- NOTE | 2025-01-28 18:34 | PC.NURSE ---
Dr. roberson'd pt. Buspirone to be restarted.
[2025-01-28 19:35] VITALS: BP 126/77; PULSE 74; RESP 16; TEMP 37.1; O2SAT 97
[2025-01-29 06:00] VITALS: RESP 18
--- NOTE | 2025-01-29 06:18 | PC.NURSE ---
Patient refused charge nurse was notified.
[2025-01-29] MEDS: venlafaxine ER (24HR) 75 mg Capsule PO (08:41)
--- NOTE | 2025-01-29 18:24 | P.NPUPN_ITS ---
Subjective NPU 2 Subjective: Patient presented today reporting that things are going well. He has continued to have a decrease in his falling out. He inquired about the possibility of being taken off of one-to-one and we discussed the behavior changes necessary for that to happen. The longoria he denied any side effects to his medications. We discussed the fact that his guardianship hearing will likely be next week. Mental Status Exam 2 MSE Comments: This is a well-nourished, well-developed, white male, in hospital scrubs seen in room with adequate grooming and poor eye contact. There was no evidence of any abnormal involuntary motor movements, except for psychomotor retardation. He was more cooperative with exam. Speech was mostly decreased in rate and volume, and normal in production. Mood described as okay I guess. Affect was slightly less dysphoric. Thought process was linear and organized. Thought content: patient denies active homicidal ideation and denies active suicidal ideation with no plan at this time. However he continues to have what must be interpreted as self-injurious behavior as he continues to fall to the ground inexplicably. Patient denied any auditory or visual hallucinations. There was no evidence of delusional thinking. Attention, concentration, and memory appeared intact. He is alert and oriented times three. Insight was poor. Judgment was poor Impulse control was poor. Vitals/I&O/Wt Last Vital Signs Temp 98.8 F 01/28/25 19:35 Pulse 74 01/28/25 19:35 Resp 18 01/29/25 06:00 BP 126/77 01/28/25 19:35 Pulse Ox 97 01/28/25 19:35 O2 Del Method Room Air 01/28/25 19:35 O2 Flow Rate 6 01/19/25 04:45 FiO2 24 01/20/25 12:24 Physical Exam 2 Urinary Catheter Management: Perez: Cath Placed During This Visit: yes Urinary Catheter Date of Insertion: 01/19/25 Urinary Catheter Time of Insertion: 05:15 Data NPU 01/20/25 05:45 01/20/25 05:45 A&P Assessment and plan 1. Suicidal behavior with attempted self-injury: 2. Multiple drug overdose: 3. Toxic encephalopathy: 4. Suicidal ideation: 5. Major depressive disorder: 6. Attention-deficit hyperactivity disorder, unspecified type: 7. Alcohol abuse: Patient has this history of alcohol abuse. Ethanol level was 0 8. Borderline personality disorder: 9. Drug overdose: 10. Suicidal ideations: 11. PTSD (post-traumatic stress disorder): 12. Bipolar disorder with depression: 13. Suicide attempt: 14. Panic attacks: 15. History of OCD (obsessive compulsive disorder): Plan: 24-year-old white male extensive history of multiple inpatient hospitalizations with borderline personality traits, dysthymia, extremely poor coping skills and signficant attention seeking behavior who presents once again with suicidal ideation with overdose with intubation in ICU. Patient has poor impulse control and continued affective instability. 1. Encourage individual, group and milieu therapy. 2. Recommend sober living treatment at the highest level of care to which the patient is willing to commit. Possibility for rehab bed sooner rather than later so we will need to address whether he is safe and/or ready for this option. 3. Continue one-to-one that she has been on for some time. 4. Will simplify medication regimen, these medications have been unhelpful and patient requires more intense psychotherapy possibly in supervisor intermediates facility. Patient requires case management services, intense DBT services. 5. Will restart [place] at 300mg twice a day only. Hold buspar, depakote. Will restart trazodone, and thorazine. Hold Effexor XR for now. Will discontinue Thorazine as patient reporting that he feels like that is what has been making him fall with regularity now. However this behavior has been seen in previous hospitalizations and appears intentional. His falls have gotten more frequent. May consider Geodon or some other antipsychotic. Will restart BuSpar. 6. Patient likely to require court appointed guardianship. 21-day hold hearing today and 21-day hold granted. All paperwork for guardianship has been submitted. PDMP PDMP Reviewed: Not Reviewed Involuntary Hold Information 2 Hold Status: Legal Status: 96 Hour Hold Date/Time Hold Expires: 02/18/2025 96 Hour Hold: 96 Hour Involuntary Admission: Yes Other Hold: Hold End Date: 07/01/24 Attestations NPU 2 Medical Necessity Statement*: Inpatient hospitalization is medically necessary and the clinically appropriate intervention at this time. We will monitor medications and make changes as indicated. The patient's likely length of stay will exceed 14 days given plan for guardianship. Coding Level of Care Code Acute Code for [facility] Fwd Diagnoses Suicidal behavior with attempted self-injury T14.91XA Multiple drug overdose T50.911A Toxic encephalopathy G92.9 Suicidal ideation R45.851 Major depressive disorder F32.9 Attention-deficit hyperactivity disorder, unspecified type F90.9 Alcohol abuse F10.10 Borderline personality disorder F60.3 Drug overdose T50.902A Encounter type: initial encounter Injury intent: intentional self-harm PTSD (post-traumatic stress disorder) F43.10 Bipolar disorder with depression F31.9 Suicide attempt T14.91XA Panic attacks F41.0 History of OCD (obsessive compulsive disorder) Z86.59
[2025-01-29 19:39] VITALS: BP 121/76; PULSE 98; RESP 18; TEMP 36.6; O2SAT 97
--- NOTE | 2025-01-30 06:21 | PC.NURSE ---
vs not collected resp 17 charge notified
[2025-01-30] MEDS: venlafaxine ER (24HR) 75 mg Capsule PO (08:23)
[2025-01-30 14:00] VITALS: BP 122/81; PULSE 73; RESP 17; TEMP 36.8; O2SAT 98
--- NOTE | 2025-01-30 18:14 | P.NPUPN_ITS ---
Subjective NPU 2 Subjective: Patient presented today reporting that he is doing all right. He continues to be on one-to-one. Reports of rec observation. He queried about whether his Ritalin/Concerta might be restarted. He continued to be less dysphoric appearing per staff reports and direct observation. We discussed the fact that his guardianship hearing will likely be within the next week and that his level 2 interview is tomorrow. He denied any side effects to his medication. Mental Status Exam 2 MSE Comments: This is a well-nourished, well-developed, white male, in hospital scrubs seen in room with adequate grooming and poor eye contact. There was no evidence of any abnormal involuntary motor movements. He was more cooperative with exam. Speech was more normal in rate and volume, and normal in production. Mood described as okay. Affect was less dysphoric. Thought process was linear and organized. Thought content: patient denies active homicidal ideation and denies active suicidal ideation with no plan at this time. However he continues to have what must be interpreted as self-injurious behavior as he continues to fall to the ground inexplicably. Patient denied any auditory or visual hallucinations. There was no evidence of delusional thinking. Attention, concentration, and memory appeared intact. He is alert and oriented times three. Insight was poor. Judgment was poor Impulse control was improving. Vitals/I&O/Wt Last Vital Signs Temp 98.7 F 01/30/25 20:46 Pulse 100 01/30/25 20:46 Resp 19 H 01/30/25 20:46 BP 123/76 01/30/25 20:46 Pulse Ox 97 01/30/25 20:46 O2 Del Method Room Air 01/30/25 20:46 O2 Flow Rate 6 01/19/25 04:45 FiO2 24 01/20/25 12:24 01/30/25 14:59 Intake Total 0 / 0 Output Total 2400 / 2400 Balance -2400 / -2400 Physical Exam 2 Urinary Catheter Management: Perez: Cath Placed During This Visit: yes Urinary Catheter Date of Insertion: 01/19/25 Urinary Catheter Time of Insertion: 05:15 Data NPU 01/20/25 05:45 01/20/25 05:45 A&P Assessment and plan 1. Suicidal behavior with attempted self-injury: 2. Multiple drug overdose: 3. Toxic encephalopathy: 4. Suicidal ideation: 5. Major depressive disorder: 6. Attention-deficit hyperactivity disorder, unspecified type: 7. Alcohol abuse: Patient has this history of alcohol abuse. Ethanol level was 0 8. Borderline personality disorder: 9. Drug overdose: 10. Suicidal ideations: 11. PTSD (post-traumatic stress disorder): 12. Bipolar disorder with depression: 13. Suicide attempt: 14. Panic attacks: 15. History of OCD (obsessive compulsive disorder): Plan: 24-year-old white male extensive history of multiple inpatient hospitalizations with borderline personality traits, dysthymia, extremely poor coping skills and signficant attention seeking behavior who presents once again with suicidal ideation with overdose with intubation in ICU. Patient has poor impulse control and continued affective instability. 1. Encourage individual, group and milieu therapy. 2. Recommend sober living treatment at the highest level of care to which the patient is willing to commit. Possibility for rehab bed sooner rather than later so we will need to address whether he is safe and/or ready for this option. 3. Continue one-to-one that she has been on for some time. 4. Will simplify medication regimen, these medications have been unhelpful and patient requires more intense psychotherapy possibly in terminal gauger facility. Patient requires case management services, intense DBT services. 5. Will restart [place] at 300mg twice a day only. Hold buspar, depakote. Will restart trazodone, and thorazine. Hold Effexor XR for now. Will discontinue Thorazine as patient reporting that he feels like that is what has been making him fall with regularity now. However this behavior has been seen in previous hospitalizations and appears intentional. His falls have gotten more frequent. May consider Geodon or some other antipsychotic. Will restart BuSpar. 6. Patient likely to require court appointed guardianship. 21-day hold hearing today and 21-day hold granted. All paperwork for guardianship has been submitted. PDMP PDMP Reviewed: Not Reviewed Involuntary Hold Information 2 Hold Status: Legal Status: 96 Hour Hold Date/Time Hold Expires: 02/18/2025 96 Hour Hold: 96 Hour Involuntary Admission: Yes Other Hold: Hold End Date: 07/01/24 Attestations NPU 2 Medical Necessity Statement*: Inpatient hospitalization is medically necessary and the clinically appropriate intervention at this time. We will monitor medications and make changes as indicated. The patient's likely length of stay will be 6 to 8 days given plan for guardianship. Coding Level of Care Code Acute Code for Chg Fwd Diagnoses Suicidal behavior with attempted self-injury T14.91XA Multiple drug overdose T50.911A Toxic encephalopathy G92.9 Suicidal ideation R45.851 Major depressive disorder F32.9 Attention-deficit hyperactivity disorder, unspecified type F90.9 Alcohol abuse F10.10 Borderline personality disorder F60.3 Drug overdose T50.902A Encounter type: initial encounter Injury intent: intentional self-harm PTSD (post-traumatic stress disorder) F43.10 Bipolar disorder with depression F31.9 Suicide attempt T14.91XA Panic attacks F41.0 History of OCD (obsessive compulsive disorder) Z86.59
[2025-01-30 20:46] VITALS: BP 123/76; PULSE 100; RESP 19; TEMP 37.1; O2SAT 97
[2025-01-31 06:00] VITALS: BP 117/73; PULSE 73; RESP 17; TEMP 36.7; O2SAT 99
[2025-01-31] MEDS: venlafaxine ER (24HR) 75 mg Capsule PO (08:38)
[2025-01-31 14:00] VITALS: BP 117/79; PULSE 95; RESP 18; TEMP 36.6; O2SAT 98
--- NOTE | 2025-01-31 14:11 | P.NPUPN_ITS ---
Subjective NPU 2 Subjective: Patient presented today reporting that things are going okay. He was asking about the possibility of Ritalin or Concerta for his treatment moving forward. Reporting that if he was more able to focus that he might be able to have less anxiety somehow. We discussed the risks, benefits and alternatives of him coming off of one-to-one and he understood and agreed to proceed as is documented in this note. He denied any side effects to his medications we discussed trying to make sure he was in the right treatment frame of mind with his medications and everything by discharge which we are hopeful will happen next Monday or Monday as referrals went out today and his guardianship hearing will be on next Monday. Mental Status Exam 2 MSE Comments: This is a well-nourished, well-developed, white male, in hospital scrubs seen in room with adequate grooming and poor eye contact. There was no evidence of any abnormal involuntary motor movements. He was more cooperative with exam. Speech was more normal in rate and volume, and normal in production. Mood described as okay. Affect was less dysphoric. Thought process was linear and organized. Thought content: patient denies active homicidal ideation and denies active suicidal ideation with no plan at this time. However he continues to have what must be interpreted as self-injurious behavior as he continues to fall to the ground inexplicably. Patient denied any auditory or visual hallucinations. There was no evidence of delusional thinking. Attention, concentration, and memory appeared intact. He is alert and oriented times three. Insight was poor. Judgment was poor Impulse control was improving. Vitals/I&O/Wt Last Vital Signs Temp 98.0 F 01/31/25 06:00 Pulse 73 01/31/25 06:00 Resp 17 01/31/25 06:00 BP 117/73 01/31/25 06:00 Pulse Ox 99 01/31/25 06:00 O2 Del Method Room Air 01/31/25 06:00 O2 Flow Rate 6 01/19/25 04:45 FiO2 24 01/20/25 12:24 01/30/25 01/31/25 01/31/25 22:59 06:59 14:59 Intake Total 0 / 0 Output Total 1200 / 3600 Balance -1200 / -3600 Physical Exam 2 Urinary Catheter Management: Perez: Cath Placed During This Visit: yes Urinary Catheter Date of Insertion: 01/19/25 Urinary Catheter Time of Insertion: 05:15 Data NPU 01/20/25 05:45 01/20/25 05:45 A&P Assessment and plan 1. Suicidal behavior with attempted self-injury: 2. Multiple drug overdose: 3. Toxic encephalopathy: 4. Suicidal ideation: 5. Major depressive disorder: 6. Attention-deficit hyperactivity disorder, unspecified type: 7. Alcohol abuse: Patient has this history of alcohol abuse. Ethanol level was 0 8. Borderline personality disorder: 9. Drug overdose: 10. Suicidal ideations: 11. PTSD (post-traumatic stress disorder): 12. Bipolar disorder with depression: 13. Suicide attempt: 14. Panic attacks: 15. History of OCD (obsessive compulsive disorder): Plan: 24-year-old white male extensive history of multiple inpatient hospitalizations with borderline personality traits, dysthymia, extremely poor coping skills and signficant attention seeking behavior who presents once again with suicidal ideation with overdose with intubation in ICU. Patient has poor impulse control and continued affective instability. 1. Encourage individual, group and milieu therapy. 2. Recommend sober living treatment at the highest level of care to which the patient is willing to commit. Possibility for rehab bed sooner rather than later so we will need to address whether he is safe and/or ready for this option. 3. Continue one-to-one that she has been on for some time. Patient switched back to every 15 minute checks. 4. Will simplify medication regimen, these medications have been unhelpful and patient requires more intense psychotherapy possibly in long term care social worker facility. Patient requires case management services, intense DBT services. 5. Will restart [place] at 300mg twice a day only. Hold buspar, depakote. Will restart trazodone, and thorazine. Hold Effexor XR for now. Will discontinue Thorazine as patient reporting that he feels like that is what has been making him fall with regularity now. However this behavior has been seen in previous hospitalizations and appears intentional. His falls have gotten more frequent. May consider Geodon or some other antipsychotic. Will restart BuSpar. 6. Patient likely to require court appointed guardianship. 21-day hold hearing today and 21-day hold granted. All paperwork for guardianship has been submitted. Tentative date for guardianship hearing on 02/04/2025. PDMP PDMP Reviewed: Not Reviewed Involuntary Hold Information 2 Hold Status: Legal Status: 96 Hour Hold Date/Time Hold Expires: 02/18/2025 96 Hour Hold: 96 Hour Involuntary Admission: Yes Other Hold: Hold End Date: 07/01/24 Attestations NPU 2 Medical Necessity Statement*: Inpatient hospitalization is medically necessary and the clinically appropriate intervention at this time. We will monitor medications and make changes as indicated. The patient's likely length of stay will be 3-5 days given plan for guardianship. Coding Level of Care Code Acute Code for Chg Fwd Diagnoses Suicidal behavior with attempted self-injury T14.91XA Multiple drug overdose T50.911A Toxic encephalopathy G92.9 Suicidal ideation R45.851 Major depressive disorder F32.9 Attention-deficit hyperactivity disorder, unspecified type F90.9 Alcohol abuse F10.10 Borderline personality disorder F60.3 Drug overdose T50.902A Encounter type: initial encounter Injury intent: intentional self-harm PTSD (post-traumatic stress disorder) F43.10 Bipolar disorder with depression F31.9 Suicide attempt T14.91XA Panic attacks F41.0 History of OCD (obsessive compulsive disorder) Z86.59
[2025-01-31] MEDS: haloperidol inj 5 mg/mL INJ 1 mL IM (15:16)
[2025-01-31] MEDS: LORazepam 1 MG/0.5 ML injection 2 MG IM (15:16)
[2025-01-31] MEDS: diphenhydrAMINE 50 mg/mL SDV 1mL IM (15:17)
[2025-01-31 20:27] VITALS: BP 119/83; PULSE 84; RESP 16; TEMP 36.3; O2SAT 96
[2025-02-01 06:00] VITALS: BP 110/68; PULSE 80; RESP 16; TEMP 36.7; O2SAT 99
--- NOTE | 2025-02-01 07:35 | W.PM.NPUPNS ---
Subjective NPU Subjective: Patient presents today reporting that things are going fine. He is having some positive thoughts about leaving here hopefully in a couple of days. He is taking his medication as prescribed and continues to ask about the possibility of Concerta prior to discharge. We discussed the importance of him managing himself over the next several days. He is aware of the process for guardianship and level 2 placement. He has been having moments each day where he reports his anxiety is really difficult to manage and has been asking for IM medication. We discussed that we would not be given the Ativan in future injections. Mental Status Exam MSE Comments: This is a well-nourished, well-developed, white male, in hospital scrubs seen in room with adequate grooming and poor eye contact. There was no evidence of any abnormal involuntary motor movements. He was more cooperative with exam. Speech was more normal in rate and volume, and normal in production. Mood described as okay. Affect was less dysphoric. Thought process was linear and organized. Thought content: patient denies active homicidal ideation and denies active suicidal ideation with no plan at this time. However he continues to have what must be interpreted as self-injurious behavior as he continues to fall to the ground inexplicably. Patient denied any auditory or visual hallucinations. There was no evidence of delusional thinking. Attention, concentration, and memory appeared intact. He is alert and oriented times three. Insight was poor. Judgment was poor Impulse control was improving. Vitals/I&O/Wt Last Vital Signs Temp 98.1 F 02/01/25 06:00 Pulse 80 02/01/25 06:00 Resp 16 02/01/25 06:00 BP 110/68 02/01/25 06:00 Pulse Ox 99 02/01/25 06:00 O2 Del Method Room Air 02/01/25 06:00 O2 Flow Rate 6 01/19/25 04:45 FiO2 24 01/20/25 12:24 Physical Exam Urinary Catheter Management: Perez: Cath Placed During This Visit: yes Urinary Catheter Date of Insertion: 01/19/25 Urinary Catheter Time of Insertion: 05:15 Data NPU 01/20/25 05:45 01/20/25 05:45 A&P Assessment and plan 1. Suicidal behavior with attempted self-injury: 2. Multiple drug overdose: 3. Toxic encephalopathy: 4. Suicidal ideation: 5. Major depressive disorder: 6. Attention-deficit hyperactivity disorder, unspecified type: 7. Alcohol abuse: Patient has this history of alcohol abuse. Ethanol level was 0 8. Borderline personality disorder: 9. Drug overdose: 10. Suicidal ideations: 11. PTSD (post-traumatic stress disorder): 12. Bipolar disorder with depression: 13. Suicide attempt: 14. Panic attacks: 15. History of OCD (obsessive compulsive disorder): Plan: 24-year-old white male extensive history of multiple inpatient hospitalizations with borderline personality traits, dysthymia, extremely poor coping skills and signficant attention seeking behavior who presents once again with suicidal ideation with overdose with intubation in ICU. Patient has poor impulse control and continued affective instability. 1. Encourage individual, group and milieu therapy. 2. Recommend sober living treatment at the highest level of care to which the patient is willing to commit. Possibility for rehab bed sooner rather than later so we will need to address whether he is safe and/or ready for this option. 3. Continue one-to-one that she has been on for some time. Patient switched back to every 15 minute checks. 4. Will simplify medication regimen, these medications have been unhelpful and patient requires more intense psychotherapy possibly in long wall mining machine helper facility. Patient requires case management services, intense DBT services. 5. Will restart [place] at 300mg twice a day only. Hold buspar, depakote. Will restart trazodone, and thorazine. Hold Effexor XR for now. Will discontinue Thorazine as patient reporting that he feels like that is what has been making him fall with regularity now. However this behavior has been seen in previous hospitalizations and appears intentional. His falls have gotten more frequent. May consider Geodon or some other antipsychotic. Will restart BuSpar. 6. Patient likely to require court appointed guardianship. 21-day hold hearing today and 21-day hold granted. All paperwork for guardianship has been submitted. Tentative date for guardianship hearing on 02/04/2025. PDMP PDMP Reviewed: Not Reviewed Involuntary Hold Information Hold Status: Legal Status: 96 Hour Hold Date/Time Hold Expires: 02/18/2025 96 Hour Hold: 96 Hour Involuntary Admission: Yes Other Hold: Hold End Date: 07/01/24 Attestations NPU Medical Necessity Statement*: Inpatient hospitalization is medically necessary and the clinically appropriate intervention at this time. We will monitor medications and make changes as indicated. The patient's likely length of stay will be hopefully 3-4 days given plan for guardianship. Coding Level of Care Code Acute Code for Chg Fwd Diagnoses Suicidal behavior with attempted self-injury T14.91XA Multiple drug overdose T50.911A Toxic encephalopathy G92.9 Suicidal ideation R45.851 Major depressive disorder F32.9 Attention-deficit hyperactivity disorder, unspecified type F90.9 Alcohol abuse F10.10 Borderline personality disorder F60.3 Drug overdose T50.902A Encounter type: initial encounter Injury intent: intentional self-harm PTSD (post-traumatic stress disorder) F43.10 Bipolar disorder with depression F31.9 Suicide attempt T14.91XA Panic attacks F41.0 History of OCD (obsessive compulsive disorder) Z86.59
[2025-02-01] MEDS: venlafaxine ER (24HR) 75 mg Capsule PO (09:05)
[2025-02-01] MEDS: haloperidol inj 5 mg/mL INJ 1 mL 10 MG IM (18:23)
[2025-02-01] MEDS: diphenhydrAMINE 50 mg/mL SDV 1mL IM (18:23)
--- NOTE | 2025-02-01 18:27 | PC.NURSE ---
Pt. requested a B-52. Signee asked the Dr. Dr. Bowie said to give the Haldol, and Benadryl, but no Ativan.
[2025-02-01 19:39] VITALS: BP 112/72; PULSE 71; RESP 18; TEMP 36.7; O2SAT 96
[2025-02-02 06:00] VITALS: BP 109/72; PULSE 61; RESP 16; TEMP 36.4; O2SAT 98
[2025-02-02] MEDS: venlafaxine ER (24HR) 75 mg Capsule PO (08:09)
--- NOTE | 2025-02-02 09:19 | P.NPUPN_ITS ---
Subjective NPU 2 Subjective: Patient presented today reporting that going fine. Continues to want to take his medication prior to likely discharge in the next few days. He denies any side effects to his medications but occasionally will report a need for anxiety medications. He denies any side effects of medications. Mental Status Exam 2 MSE Comments: This is a well-nourished, well-developed, white male, in hospital scrubs seen in room with adequate grooming and poor eye contact. There was no evidence of any abnormal involuntary motor movements. He was more cooperative with exam. Speech was more normal in rate and volume, and normal in production. Mood described as okay. Affect was less dysphoric. Thought process was linear and organized. Thought content: patient denies active homicidal ideation and denies active suicidal ideation with no plan at this time. However he continues to have what must be interpreted as self-injurious behavior as he continues to fall to the ground inexplicably. Patient denied any auditory or visual hallucinations. There was no evidence of delusional thinking. Attention, concentration, and memory appeared intact. He is alert and oriented times three. Insight was poor. Judgment was poor Impulse control was improving. Vitals/I&O/Wt Last Vital Signs Temp 97.6 F 02/02/25 06:00 Pulse 61 02/02/25 06:00 Resp 16 02/02/25 06:00 BP 109/72 02/02/25 06:00 Pulse Ox 98 02/02/25 06:00 O2 Del Method Room Air 02/02/25 06:00 O2 Flow Rate 6 01/19/25 04:45 FiO2 24 01/20/25 12:24 Physical Exam 2 Urinary Catheter Management: Perez: Cath Placed During This Visit: yes Urinary Catheter Date of Insertion: 01/19/25 Urinary Catheter Time of Insertion: 05:15 Data NPU 01/20/25 05:45 01/20/25 05:45 Micro: Microbiology 01/19/25 10:10 Gram Stain - Final Sputum - Endotracheal Tube Aspirate Sputum Culture - Final Microbiology 01/19/25 10:10 Sputum - Endotracheal Tube Aspirate Gram Stain - Final 01/19/25 10:10 Sputum - Endotracheal Tube Aspirate Sputum Culture - Final A&P Assessment and plan 1. Suicidal behavior with attempted self-injury: 2. Multiple drug overdose: 3. Toxic encephalopathy: 4. Suicidal ideation: 5. Major depressive disorder: 6. Attention-deficit hyperactivity disorder, unspecified type: 7. Alcohol abuse: Patient has this history of alcohol abuse. Ethanol level was 0 8. Borderline personality disorder: 9. Drug overdose: 10. Suicidal ideations: 11. PTSD (post-traumatic stress disorder): 12. Bipolar disorder with depression: 13. Suicide attempt: 14. Panic attacks: 15. History of OCD (obsessive compulsive disorder): Plan: 24-year-old white male extensive history of multiple inpatient hospitalizations with borderline personality traits, dysthymia, extremely poor coping skills and signficant attention seeking behavior who presents once again with suicidal ideation with overdose with intubation in ICU. Patient has poor impulse control and continued affective instability. 1. Encourage individual, group and milieu therapy. 2. Recommend sober living treatment at the highest level of care to which the patient is willing to commit. Possibility for rehab bed sooner rather than later so we will need to address whether he is safe and/or ready for this option. 3. Continue one-to-one that she has been on for some time. Patient switched back to every 15 minute checks. 4. Will simplify medication regimen, these medications have been unhelpful and patient requires more intense psychotherapy possibly in ad terminal makeup operator facility. Patient requires case management services, intense DBT services. 5. Will restart [place] at 300mg twice a day only. Hold buspar, depakote. Will restart trazodone, and thorazine. Hold Effexor XR for now. Will discontinue Thorazine as patient reporting that he feels like that is what has been making him fall with regularity now. However this behavior has been seen in previous hospitalizations and appears intentional. His falls have gotten more frequent. May consider Geodon or some other antipsychotic. Will restart BuSpar. 6. Patient likely to require court appointed guardianship. 21-day hold hearing today and 21-day hold granted. All paperwork for guardianship has been submitted. Tentative date for guardianship hearing on 02/04/2025. PDMP PDMP Reviewed: Not Reviewed Involuntary Hold Information 2 Hold Status: Legal Status: 96 Hour Hold Date/Time Hold Expires: 02/18/2025 96 Hour Hold: 96 Hour Involuntary Admission: Yes Other Hold: Hold End Date: 07/01/24 Attestations NPU 2 Medical Necessity Statement*: Inpatient hospitalization is medically necessary and the clinically appropriate intervention at this time. We will monitor medications and make changes as indicated. The patient's likely length of stay will be hopefully 2-4 days given plan for guardianship. Coding Level of Care Code Acute Code for Chg Fwd Diagnoses Suicidal behavior with attempted self-injury T14.91XA Multiple drug overdose T50.911A Toxic encephalopathy G92.9 Suicidal ideation R45.851 Major depressive disorder F32.9 Attention-deficit hyperactivity disorder, unspecified type F90.9 Alcohol abuse F10.10 Borderline personality disorder F60.3 Drug overdose T50.902A Encounter type: initial encounter Injury intent: intentional self-harm PTSD (post-traumatic stress disorder) F43.10 Bipolar disorder with depression F31.9 Suicide attempt T14.91XA Panic attacks F41.0 History of OCD (obsessive compulsive disorder) Z86.59
[2025-02-02 14:00] VITALS: BP 121/80; PULSE 82; RESP 18; TEMP 36.4; O2SAT 98
[2025-02-02 19:50] VITALS: BP 120/77; PULSE 88; RESP 19; TEMP 36.7; O2SAT 98
[2025-02-03 06:00] VITALS: BP 113/72; PULSE 81; RESP 18; TEMP 36.4; O2SAT 99
[2025-02-03] MEDS: venlafaxine ER (24HR) 75 mg Capsule PO (08:58)
--- NOTE | 2025-02-03 12:52 | P.NPUPN_ITS ---
Subjective NPU 2 Subjective: Scented today continuing to have mostly good moments but intermittent moments of emotional dysregulation. Whenever he gets in these moments it is completely written all over his face per staff reports and direct observation as he will often pace the hallway and have a fairly disgruntled look on his face. Other times he has been doing perfectly fine. He says that he is excited about discharging and going somewhere else. He has not been having falls or the other issues that were requiring as needed medications in any other interventions. He denied side effects to his medications. Mental Status Exam 2 MSE Comments: This is a well-nourished, well-developed, white male, in hospital scrubs seen in room with adequate grooming and poor eye contact. There was no evidence of any abnormal involuntary motor movements. He was more cooperative with exam. Speech was more normal in rate and volume, and normal in production. Mood described as okay. Affect was less dysphoric. Thought process was linear and organized. Thought content: patient denies active homicidal ideation and denies active suicidal ideation with no plan at this time. However he continues to have what must be interpreted as self-injurious behavior as he continues to fall to the ground inexplicably. Patient denied any auditory or visual hallucinations. There was no evidence of delusional thinking. Attention, concentration, and memory appeared intact. He is alert and oriented times three. Insight was poor. Judgment was poor Impulse control was improving. Vitals/I&O/Wt Last Vital Signs Temp 97.6 F 02/03/25 06:00 Pulse 81 02/03/25 06:00 Resp 18 02/03/25 06:00 BP 113/72 02/03/25 06:00 Pulse Ox 99 02/03/25 06:00 O2 Del Method Room Air 02/03/25 06:00 O2 Flow Rate 6 01/19/25 04:45 FiO2 24 01/20/25 12:24 02/02/25 02/03/25 02/03/25 22:59 06:59 14:59 Intake Total 0 / 0 Output Total 1200 / 1200 Balance -1200 / -1200 Physical Exam 2 Urinary Catheter Management: Perez: Cath Placed During This Visit: yes Urinary Catheter Date of Insertion: 01/19/25 Urinary Catheter Time of Insertion: 05:15 Data NPU 01/20/25 05:45 01/20/25 05:45 A&P Assessment and plan 1. Suicidal behavior with attempted self-injury: 2. Multiple drug overdose: 3. Toxic encephalopathy: 4. Suicidal ideation: 5. Major depressive disorder: 6. Attention-deficit hyperactivity disorder, unspecified type: 7. Alcohol abuse: Patient has this history of alcohol abuse. Ethanol level was 0 8. Borderline personality disorder: 9. Drug overdose: 10. Suicidal ideations: 11. PTSD (post-traumatic stress disorder): 12. Bipolar disorder with depression: 13. Suicide attempt: 14. Panic attacks: 15. History of OCD (obsessive compulsive disorder): Plan: 24-year-old white male extensive history of multiple inpatient hospitalizations with borderline personality traits, dysthymia, extremely poor coping skills and signficant attention seeking behavior who presents once again with suicidal ideation with overdose with intubation in ICU. Patient has poor impulse control and continued affective instability. 1. Encourage individual, group and milieu therapy. 2. Recommend sober living treatment at the highest level of care to which the patient is willing to commit. Possibility for rehab bed sooner rather than later so we will need to address whether he is safe and/or ready for this option. 3. Continue one-to-one that she has been on for some time. Patient switched back to every 15 minute checks. 4. Will simplify medication regimen, these medications have been unhelpful and patient requires more intense psychotherapy possibly in long term care administrator facility. Patient requires case management services, intense DBT services. 5. Will restart [place] at 300mg twice a day only. Hold buspar, depakote. Will restart trazodone, and thorazine. Hold Effexor XR for now. Will discontinue Thorazine as patient reporting that he feels like that is what has been making him fall with regularity now. However this behavior has been seen in previous hospitalizations and appears intentional. His falls have gotten more frequent. May consider Geodon or some other antipsychotic. Will restart BuSpar. 6. Patient likely to require court appointed guardianship. 21-day hold hearing today and 21-day hold granted. All paperwork for guardianship has been submitted. Guardianship hearing tomorrow, 02/04/2025. Working on discharge location. Hope for discharge tomorrow or the next day. PDMP PDMP Reviewed: Not Reviewed Involuntary Hold Information 2 Hold Status: Legal Status: 96 Hour Hold Date/Time Hold Expires: 02/18/2025 96 Hour Hold: 96 Hour Involuntary Admission: Yes Other Hold: Hold End Date: 07/01/24 Attestations NPU 2 Medical Necessity Statement*: Inpatient hospitalization is medically necessary and the clinically appropriate intervention at this time. We will monitor medications and make changes as indicated. The patient's likely length of stay will be hopefully 2-4 days given plan for guardianship. Coding Level of Care Code Acute Code for Chg Fwd Diagnoses Suicidal behavior with attempted self-injury T14.91XA Multiple drug overdose T50.911A Toxic encephalopathy G92.9 Suicidal ideation R45.851 Major depressive disorder F32.9 Attention-deficit hyperactivity disorder, unspecified type F90.9 Alcohol abuse F10.10 Borderline personality disorder F60.3 Drug overdose T50.902A Encounter type: initial encounter Injury intent: intentional self-harm PTSD (post-traumatic stress disorder) F43.10 Bipolar disorder with depression F31.9 Suicide attempt T14.91XA Panic attacks F41.0 History of OCD (obsessive compulsive disorder) Z86.59
[2025-02-03 14:00] VITALS: BP 133/88; PULSE 85; RESP 18; TEMP 36.4; O2SAT 98
[2025-02-03] MEDS: diphenhydrAMINE 50 mg/mL SDV 1mL IM (18:45)
[2025-02-03] MEDS: haloperidol inj 5 mg/mL INJ 1 mL 10 MG IM (18:45)
[2025-02-03 20:42] VITALS: BP 112/78; PULSE 88; RESP 18; TEMP 37.1; O2SAT 98
[2025-02-04 06:00] VITALS: BP 120/79; PULSE 70; RESP 17; TEMP 36.6; O2SAT 97
[2025-02-04] MEDS: venlafaxine ER (24HR) 75 mg Capsule PO (08:11)
[2025-02-04 14:00] VITALS: BP 129/84; PULSE 91; RESP 17; TEMP 37.1; O2SAT 98
--- NOTE | 2025-02-04 16:55 | W.PM.NPUPNS ---
Subjective NPU Subjective: Patient presented today reporting that he is doing fine. Initially he was not going to the hearing today and reports he has excepted his situation. But later he decided to go but he reports he did not fight the outcome. He reports that he accepts that he needs to go somewhere and get better. He continues to hope that we might prescribe the Concerta prior to discharge. Otherwise he denied any issues and was denying any side effects of his medication. Mental Status Exam MSE Comments: This is a well-nourished, well-developed, white male, in hospital scrubs seen in room with adequate grooming and poor eye contact. There was no evidence of any abnormal involuntary motor movements. He was more cooperative with exam. Speech was more normal in rate and volume, and normal in production. Mood described as okay. Affect was less dysphoric. Thought process was linear and organized. Thought content: patient denies active homicidal ideation and denies active suicidal ideation with no plan at this time. However he continues to have what must be interpreted as self-injurious behavior as he continues to fall to the ground inexplicably. Patient denied any auditory or visual hallucinations. There was no evidence of delusional thinking. Attention, concentration, and memory appeared intact. He is alert and oriented times three. Insight was poor. Judgment was poor Impulse control was improving. Vitals/I&O/Wt Last Vital Signs Temp 98.5 F 02/04/25 14:00 Pulse 91 02/04/25 14:00 Resp 17 02/04/25 14:00 BP 129/84 02/04/25 14:00 Pulse Ox 98 02/04/25 14:00 O2 Del Method Room Air 02/04/25 14:00 O2 Flow Rate 6 01/19/25 04:45 FiO2 24 01/20/25 12:24 Physical Exam Urinary Catheter Management: Perez: Cath Placed During This Visit: yes Urinary Catheter Date of Insertion: 01/19/25 Urinary Catheter Time of Insertion: 05:15 Data NPU 01/20/25 05:45 01/20/25 05:45 A&P Assessment and plan 1. Suicidal behavior with attempted self-injury: 2. Multiple drug overdose: 3. Toxic encephalopathy: 4. Suicidal ideation: 5. Major depressive disorder: 6. Attention-deficit hyperactivity disorder, unspecified type: 7. Alcohol abuse: Patient has this history of alcohol abuse. Ethanol level was 0 8. Borderline personality disorder: 9. Drug overdose: 10. Suicidal ideations: 11. PTSD (post-traumatic stress disorder): 12. Bipolar disorder with depression: 13. Suicide attempt: 14. Panic attacks: 15. History of OCD (obsessive compulsive disorder): Plan: 24-year-old white male extensive history of multiple inpatient hospitalizations with borderline personality traits, dysthymia, extremely poor coping skills and signficant attention seeking behavior who presents once again with suicidal ideation with overdose with intubation in ICU. Patient has poor impulse control and continued affective instability. 1. Encourage individual, group and milieu therapy. 2. Recommend sober living treatment at the highest level of care to which the patient is willing to commit. Possibility for rehab bed sooner rather than later so we will need to address whether he is safe and/or ready for this option. 3. Continue one-to-one that she has been on for some time. Patient switched back to every 15 minute checks. 4. Will simplify medication regimen, these medications have been unhelpful and patient requires more intense psychotherapy possibly in long term acute care registered nurse facility. Patient requires case management services, intense DBT services. 5. Will restart [place] at 300mg twice a day only. Hold buspar, depakote. Will restart trazodone, and thorazine. Hold Effexor XR for now. Will discontinue Thorazine as patient reporting that he feels like that is what has been making him fall with regularity now. However this behavior has been seen in previous hospitalizations and appears intentional. His falls have gotten more frequent. May consider Geodon or some other antipsychotic. Will restart BuSpar. 6. Patient likely to require court appointed guardianship. 21-day hold hearing today and 21-day hold granted. All paperwork for guardianship has been submitted. Guardianship hearing tomorrow, 02/04/2025. Working on discharge location. [facility] for [facility] tomorrow or the next day. Had his hearing and Ermias Leggett is his guardian. So no longer on a 21-day hold. PDMP PDMP Reviewed: Not Reviewed Involuntary Hold Information Hold Status: Legal Status: 96 Hour Hold Date/Time Hold Expires: 02/18/2025 96 Hour Hold: 96 Hour Involuntary Admission: Yes Other Hold: Hold End Date: 07/01/24 Attestations NPU Medical Necessity Statement*: Inpatient hospitalization is medically necessary and the clinically appropriate intervention at this time. We will monitor medications and make changes as indicated. The patient's likely length of stay will be hopefully 2-4 days given plan for guardianship. Coding Level of Care Code Acute Code for Chg Fwd Diagnoses Suicidal behavior with attempted self-injury T14.91XA Multiple drug overdose T50.911A Toxic encephalopathy G92.9 Suicidal ideation R45.851 Major depressive disorder F32.9 Attention-deficit hyperactivity disorder, unspecified type F90.9 Alcohol abuse F10.10 Borderline personality disorder F60.3 Drug overdose T50.902A Encounter type: initial encounter Injury intent: intentional self-harm PTSD (post-traumatic stress disorder) F43.10 Bipolar disorder with depression F31.9 Suicide attempt T14.91XA Panic attacks F41.0 History of OCD (obsessive compulsive disorder) Z86.59
[2025-02-04 20:21] VITALS: BP 116/74; PULSE 60; RESP 16; TEMP 36.5; O2SAT 98
[2025-02-05 05:49] VITALS: BP 120/75; PULSE 85; RESP 19; TEMP 36.9; O2SAT 98
[2025-02-05] MEDS: venlafaxine ER (24HR) 75 mg Capsule PO (08:10)
--- NOTE | 2025-02-05 11:05 | PC.NURSE ---
PRN MED PT GIVEN 4MG ZOFRAN FOR STOMACH ACK, WILL CONTINUE TO MONITOR.
[2025-02-05 14:00] VITALS: BP 119/72; PULSE 104; RESP 18; TEMP 36.7; O2SAT 97
--- NOTE | 2025-02-05 14:51 | P.NPUPN_ITS ---
Subjective NPU 2 Subjective: Patient presented today reporting that he is doing okay. We once again discussed the anxiety that he has about his current situation. And discussed that it serve no purpose given that he has 0 power in this circumstance. We discussed the most important thing is for him to function positively on the unit so that he can demonstrate the people that he is someone that would be reasonable to take. He was very frustrated the fact that the [facility] not [facility]. We discussed the fact that even with the [facility] they said they did not feel he was appropriate now but this is them saying that he needs to have some improvement for them to feel he would be able to function in their program. He denied any issues and was denying any side effects of his medication. Mental Status Exam 2 MSE Comments: This is a well-nourished, well-developed, white male, in hospital scrubs seen in room with adequate grooming and poor eye contact. There was no evidence of any abnormal involuntary motor movements. He was more cooperative with exam. Speech was more normal in rate and volume, and normal in production. Mood described as okay. Affect was less dysphoric. Thought process was linear and organized. Thought content: patient denies active homicidal ideation and denies active suicidal ideation with no plan at this time. However he continues to have what must be interpreted as self-injurious behavior as he continues to fall to the ground inexplicably. Patient denied any auditory or visual hallucinations. There was no evidence of delusional thinking. Attention, concentration, and memory appeared intact. He is alert and oriented times three. Insight was poor. Judgment was poor Impulse control was improving. Vitals/I&O/Wt Last Vital Signs Temp 98.5 F 02/05/25 05:49 Pulse 85 02/05/25 05:49 Resp 19 H 02/05/25 05:49 BP 120/75 02/05/25 05:49 Pulse Ox 98 02/05/25 05:49 O2 Del Method Room Air 02/05/25 05:49 O2 Flow Rate 6 01/19/25 04:45 FiO2 24 01/20/25 12:24 Physical Exam 2 Urinary Catheter Management: Perez: Cath Placed During This Visit: yes Urinary Catheter Date of Insertion: 01/19/25 Urinary Catheter Time of Insertion: 05:15 Data NPU 01/20/25 05:45 01/20/25 05:45 A&P Assessment and plan 1. Suicidal behavior with attempted self-injury: 2. Multiple drug overdose: 3. Toxic encephalopathy: 4. Suicidal ideation: 5. Major depressive disorder: 6. Attention-deficit hyperactivity disorder, unspecified type: 7. Alcohol abuse: Patient has this history of alcohol abuse. Ethanol level was 0 8. Borderline personality disorder: 9. Drug overdose: 10. Suicidal ideations: 11. PTSD (post-traumatic stress disorder): 12. Bipolar disorder with depression: 13. Suicide attempt: 14. Panic attacks: 15. History of OCD (obsessive compulsive disorder): Plan: 24-year-old white male extensive history of multiple inpatient hospitalizations with borderline personality traits, dysthymia, extremely poor coping skills and signficant attention seeking behavior who presents once again with suicidal ideation with overdose with intubation in ICU. Patient has poor impulse control and continued affective instability. 1. Encourage individual, group and milieu therapy. 2. Recommend sober living treatment at the highest level of care to which the patient is willing to commit. Possibility for rehab bed sooner rather than later so we will need to address whether he is safe and/or ready for this option. 3. Continue one-to-one that she has been on for some time. Patient switched back to every 15 minute checks. 4. Will simplify medication regimen, these medications have been unhelpful and patient requires more intense psychotherapy possibly in [facility] facility. Patient requires case management services, intense DBT services. 5. Will restart [place] at 300mg twice a day only. Hold buspar, depakote. Will restart trazodone, and thorazine. Hold Effexor XR for now. Will discontinue Thorazine as patient reporting that he feels like that is what has been making him fall with regularity now. However this behavior has been seen in previous hospitalizations and appears intentional. His falls have gotten more frequent. May consider Geodon or some other antipsychotic. Will restart BuSpar. 6. Patient likely to require court appointed guardianship. 21-day hold hearing today and 21-day hold granted. All paperwork for guardianship has been submitted. Guardianship hearing tomorrow, 02/04/2025. Working on discharge location. [facility] for discharge tomorrow or the next day. Had his hearing and Ermias Leggett is his guardian. So no longer on a 21-day hold. PDMP PDMP Reviewed: Not Reviewed Involuntary Hold Information 2 Hold Status: Legal Status: 96 Hour Hold Date/Time Hold Expires: 02/18/2025 96 Hour Hold: 96 Hour Involuntary Admission: Yes Other Hold: Hold End Date: 07/01/24 Attestations NPU 2 Medical Necessity Statement*: Inpatient hospitalization is medically necessary and the clinically appropriate intervention at this time. We will monitor medications and make changes as indicated. The patient's likely length of stay will be hopefully 2-4 days given plan for guardianship. Coding Level of Care Code Acute Code for Chg Fwd Diagnoses Suicidal behavior with attempted self-injury T14.91XA Multiple drug overdose T50.911A Toxic encephalopathy G92.9 Suicidal ideation R45.851 Major depressive disorder F32.9 Attention-deficit hyperactivity disorder, unspecified type F90.9 Alcohol abuse F10.10 Borderline personality disorder F60.3 Drug overdose T50.902A Encounter type: initial encounter Injury intent: intentional self-harm PTSD (post-traumatic stress disorder) F43.10 Bipolar disorder with depression F31.9 Suicide attempt T14.91XA Panic attacks F41.0 History of OCD (obsessive compulsive disorder) Z86.59
[2025-02-05 21:34] VITALS: BP 118/78; PULSE 61; RESP 18; TEMP 36.6; O2SAT 98
[2025-02-06 06:00] VITALS: BP 112/72; PULSE 61; RESP 18; TEMP 36.5; O2SAT 97
[2025-02-06] MEDS: venlafaxine ER (24HR) 75 mg Capsule PO (08:31)
[2025-02-06 14:00] VITALS: BP 118/77; PULSE 76; RESP 16; TEMP 36.8; O2SAT 98
--- NOTE | 2025-02-06 19:51 | P.NPUPN_ITS ---
Subjective NPU 2 Subjective: Patient presented today reporting that it has been challenging waiting. He was made aware of all the referrals that were put out there to try to get someone to accept him in he reports that that has helped with his anxiety. We discussed the fact that we have and will continue to look for reasonable options for his discharge that the hospital has no interest in keeping him any longer than we have to. He denied any side effects to his medication. Mental Status Exam 2 MSE Comments: This is a well-nourished, well-developed, white male, in hospital scrubs seen in room with adequate grooming and poor eye contact. There was no evidence of any abnormal involuntary motor movements. He was more cooperative with exam. Speech was more normal in rate and volume, and normal in production. Mood described as okay. Affect was less dysphoric. Thought process was linear and organized. Thought content: patient denies active homicidal ideation and denies active suicidal ideation with no plan at this time. However he continues to have what must be interpreted as self-injurious behavior as he continues to fall to the ground inexplicably. Patient denied any auditory or visual hallucinations. There was no evidence of delusional thinking. Attention, concentration, and memory appeared intact. He is alert and oriented times three. Insight was poor. Judgment was poor Impulse control was improving. Vitals/I&O/Wt Last Vital Signs Temp 98.3 F 02/06/25 14:00 Pulse 76 02/06/25 14:00 Resp 16 02/06/25 14:00 BP 118/77 02/06/25 14:00 Pulse Ox 98 02/06/25 14:00 O2 Del Method Room Air 02/06/25 14:00 O2 Flow Rate 6 01/19/25 04:45 FiO2 24 01/20/25 12:24 Physical Exam 2 Urinary Catheter Management: Perez: Cath Placed During This Visit: yes Urinary Catheter Date of Insertion: 01/19/25 Urinary Catheter Time of Insertion: 05:15 Data NPU 01/20/25 05:45 01/20/25 05:45 A&P Assessment and plan 1. Suicidal behavior with attempted self-injury: 2. Multiple drug overdose: 3. Toxic encephalopathy: 4. Suicidal ideation: 5. Major depressive disorder: 6. Attention-deficit hyperactivity disorder, unspecified type: 7. Alcohol abuse: Patient has this history of alcohol abuse. Ethanol level was 0 8. Borderline personality disorder: 9. Drug overdose: 10. Suicidal ideations: 11. PTSD (post-traumatic stress disorder): 12. Bipolar disorder with depression: 13. Suicide attempt: 14. Panic attacks: 15. History of OCD (obsessive compulsive disorder): Plan: 24-year-old white male extensive history of multiple inpatient hospitalizations with borderline personality traits, dysthymia, extremely poor coping skills and signficant attention seeking behavior who presents once again with suicidal ideation with overdose with intubation in ICU. Patient has poor impulse control and continued affective instability. 1. Encourage individual, group and milieu therapy. 2. Recommend sober living treatment at the highest level of care to which the patient is willing to commit. Possibility for rehab bed sooner rather than later so we will need to address whether he is safe and/or ready for this option. 3. Continue one-to-one that she has been on for some time. Patient switched back to every 15 minute checks. 4. Will simplify medication regimen, these medications have been unhelpful and patient requires more intense psychotherapy possibly in longterm facility. Patient requires case management services, intense DBT services. 5. Will restart [place] at 300mg twice a day only. Hold buspar, depakote. Will restart trazodone, and thorazine. Hold Effexor XR for now. Will discontinue Thorazine as patient reporting that he feels like that is what has been making him fall with regularity now. However this behavior has been seen in previous hospitalizations and appears intentional. His falls have gotten more frequent. May consider Geodon or some other antipsychotic. Will restart BuSpar. 6. Patient likely to require court appointed guardianship. 21-day hold hearing today and 21-day hold granted. All paperwork for guardianship has been submitted. Guardianship hearing tomorrow, 02/04/2025. Working on discharge location. [facility] for discharge tomorrow or the next day. Had his hearing and Ermias Leggett is his guardian. So no longer on a 21-day hold. PDMP PDMP Reviewed: Not Reviewed Involuntary Hold Information 2 Hold Status: Legal Status: 96 Hour Hold Date/Time Hold Expires: 02/18/2025 96 Hour Hold: 96 Hour Involuntary Admission: Yes Other Hold: Hold End Date: 07/01/24 Attestations NPU 2 Medical Necessity Statement*: Inpatient hospitalization is medically necessary and the clinically appropriate intervention at this time. We will monitor medications and make changes as indicated. The patient's likely length of stay will be hopefully 2-4 days as we search for placement. Coding Level of Care Code Acute Code for Chg Fwd Diagnoses Suicidal behavior with attempted self-injury T14.91XA Multiple drug overdose T50.911A Toxic encephalopathy G92.9 Suicidal ideation R45.851 Major depressive disorder F32.9 Attention-deficit hyperactivity disorder, unspecified type F90.9 Alcohol abuse F10.10 Borderline personality disorder F60.3 Drug overdose T50.902A Encounter type: initial encounter Injury intent: intentional self-harm PTSD (post-traumatic stress disorder) F43.10 Bipolar disorder with depression F31.9 Suicide attempt T14.91XA Panic attacks F41.0 History of OCD (obsessive compulsive disorder) Z86.59
[2025-02-06 20:02] VITALS: BP 147/89; PULSE 66; RESP 18; TEMP 36.8; O2SAT 97
[2025-02-07 06:00] VITALS: BP 134/83; PULSE 73; RESP 16; TEMP 36.7; O2SAT 98
[2025-02-07] MEDS: venlafaxine ER (24HR) 75 mg Capsule PO (09:49)
[2025-02-07 14:00] VITALS: BP 124/78; PULSE 84; RESP 18; TEMP 36.7; O2SAT 98
[2025-02-07 20:22] VITALS: BP 121/79; PULSE 84; RESP 19; TEMP 36.6; O2SAT 98
[2025-02-08 06:00] VITALS: BP 147/77; PULSE 86; RESP 17; TEMP 36.6; O2SAT 99
[2025-02-08] MEDS: venlafaxine ER (24HR) 75 mg Capsule PO (08:43)
[2025-02-08 14:00] VITALS: BP 133/86; PULSE 113; RESP 18; TEMP 36.6; O2SAT 97
[2025-02-08 19:46] VITALS: BP 148/92; PULSE 87; RESP 20; TEMP 37.1; O2SAT 97
--- NOTE | 2025-02-08 21:26 | P.NPUPN_ITS ---
Subjective NPU 2 Subjective: Patient presented today reporting that he is doing okay. He reports he has had some periods of time that he has felt like what he is having his moments of anxiety off and on. We discussed the risks, benefits and alternatives of increasing the Effexor and getting a lithium level and possibly increasing the lithium and he understood and agreed to proceed as is documented in this note. Effects of medication. Mental Status Exam 2 MSE Comments: This is a well-nourished, well-developed, white male, in hospital scrubs seen in room with adequate grooming and poor eye contact. There was no evidence of any abnormal involuntary motor movements. He was more cooperative with exam. Speech was more normal in rate and volume, and normal in production. Mood described as okay, but I do feel like you are having depression and anxiety sometimes, affect was less dysphoric. Thought process was linear and organized. Thought content: patient denies active homicidal ideation and denies active suicidal ideation with no plan at this time. However he continues to have what must be interpreted as self-injurious behavior as he continues to fall to the ground inexplicably. Patient denied any auditory or visual hallucinations. There was no evidence of delusional thinking. Attention, concentration, and memory appeared intact. He is alert and oriented times three. Insight was poor. Judgment was poor Impulse control was improving. Vitals/I&O/Wt Last Vital Signs Temp 98.8 F 02/08/25 19:46 Pulse 87 02/08/25 19:46 Resp 20 H 02/08/25 19:46 BP 148/92 02/08/25 19:46 Pulse Ox 97 02/08/25 19:46 O2 Del Method Room Air 02/08/25 19:46 O2 Flow Rate 6 01/19/25 04:45 FiO2 24 01/20/25 12:24 Physical Exam 2 Urinary Catheter Management: Perez: Cath Placed During This Visit: yes Urinary Catheter Date of Insertion: 01/19/25 Urinary Catheter Time of Insertion: 05:15 Data NPU 01/20/25 05:45 01/20/25 05:45 A&P Assessment and plan 1. Suicidal behavior with attempted self-injury: 2. Multiple drug overdose: 3. Toxic encephalopathy: 4. Suicidal ideation: 5. Major depressive disorder: 6. Attention-deficit hyperactivity disorder, unspecified type: 7. Alcohol abuse: Patient has this history of alcohol abuse. Ethanol level was 0 8. Borderline personality disorder: 9. Drug overdose: 10. Suicidal ideations: 11. PTSD (post-traumatic stress disorder): 12. Bipolar disorder with depression: 13. Suicide attempt: 14. Panic attacks: 15. History of OCD (obsessive compulsive disorder): Plan: 24-year-old white male extensive history of multiple inpatient hospitalizations with borderline personality traits, dysthymia, extremely poor coping skills and signficant attention seeking behavior who presents once again with suicidal ideation with overdose with intubation in ICU. Patient has poor impulse control and continued affective instability. 1. Encourage individual, group and milieu therapy. 2. Recommend sober living treatment at the highest level of care to which the patient is willing to commit. Possibility for rehab bed sooner rather than later so we will need to address whether he is safe and/or ready for this option. 3. Continue one-to-one that she has been on for some time. Patient switched back to every 15 minute checks. 4. Will simplify medication regimen, these medications have been unhelpful and patient requires more intense psychotherapy possibly in correction facility. Patient requires case management services, intense DBT services. 5. Will restart [place] at 300mg twice a day only. Hold buspar, depakote. Will restart trazodone, and thorazine. Hold Effexor XR for now. Will discontinue Thorazine as patient reporting that he feels like that is what has been making him fall with regularity now. However this behavior has been seen in previous hospitalizations and appears intentional. His falls have gotten more frequent. May consider Geodon or some other antipsychotic. Will restart BuSpar. Check lithium level. Increase Effexor XR to 150 mg p.o. daily. Hold lithium until lithium level obtained. 6. Patient likely to require court appointed guardianship. 21-day hold hearing today and 21-day hold granted. All paperwork for guardianship has been submitted. Guardianship hearing tomorrow, 02/04/2025. Working on discharge location. [facility] for discharge tomorrow or the next day. Had his hearing and Ermias Leggett is his guardian. So no longer on a 21-day hold. PDMP PDMP Reviewed: Not Reviewed Involuntary Hold Information 2 Hold Status: Legal Status: Active Guardianship Date/Time Hold Expires: 8 /11/2024 96 Hour Hold: 96 Hour Involuntary Admission: Yes Other Hold: Hold End Date: 07/01/24 Attestations NPU 2 Medical Necessity Statement*: Inpatient hospitalization is medically necessary and the clinically appropriate intervention at this time. We will monitor medications and make changes as indicated. The patient's likely length of stay will be hopefully 2-4 days as we search for placement. Coding Level of Care Code Acute Code for Chg Fwd Diagnoses Suicidal behavior with attempted self-injury T14.91XA Multiple drug overdose T50.911A Toxic encephalopathy G92.9 Suicidal ideation R45.851 Major depressive disorder F32.9 Attention-deficit hyperactivity disorder, unspecified type F90.9 Alcohol abuse F10.10 Borderline personality disorder F60.3 Drug overdose T50.902A Encounter type: initial encounter Injury intent: intentional self-harm PTSD (post-traumatic stress disorder) F43.10 Bipolar disorder with depression F31.9 Suicide attempt T14.91XA Panic attacks F41.0 History of OCD (obsessive compulsive disorder) Z86.59
--- NOTE | 2025-02-09 06:49 | PC.NURSE ---
vs not completed per charge nurse, resp 16
--- NOTE | 2025-02-09 07:16 | P.NPUPN_ITS ---
Subjective NPU 2 Subjective: Patient presented today reporting that things are going okay. He identified that he was tolerating the increase in the Effexor and we discussed the risks, benefits and alternatives of increasing the lithium and he understood and agreed to proceed as is documented in this note. We discussed the social work team would be back tomorrow and they would continue their quest to find him a place to go for treatment after discharge. He denied any side effects of the medication. Mental Status Exam 2 MSE Comments: This is a well-nourished, well-developed, white male, in hospital scrubs seen in room with adequate grooming and poor eye contact. There was no evidence of any abnormal involuntary motor movements. He was more cooperative with exam. Speech was more normal in rate and volume, and normal in production. Mood described as okay, affect was less dysphoric. Thought process was linear and organized. Thought content: patient denies active homicidal ideation and denies active suicidal ideation with no plan at this time. However he continues to have what must be interpreted as self-injurious behavior as he continues to fall to the ground inexplicably. Patient denied any auditory or visual hallucinations. There was no evidence of delusional thinking. Attention, concentration, and memory appeared intact. He is alert and oriented times three. Insight was poor. Judgment was poor Impulse control was improving. Vitals/I&O/Wt Last Vital Signs Temp 98.8 F 02/08/25 19:46 Pulse 87 02/08/25 19:46 Resp 20 H 02/08/25 19:46 BP 148/92 02/08/25 19:46 Pulse Ox 97 02/08/25 19:46 O2 Del Method Room Air 02/08/25 19:46 O2 Flow Rate 6 01/19/25 04:45 FiO2 24 01/20/25 12:24 Physical Exam 2 Urinary Catheter Management: Perez: Cath Placed During This Visit: yes Urinary Catheter Date of Insertion: 01/19/25 Urinary Catheter Time of Insertion: 05:15 Data NPU 02/09/25 09:01 01/20/25 05:45 A&P Assessment and plan 1. Suicidal behavior with attempted self-injury: 2. Multiple drug overdose: 3. Toxic encephalopathy: 4. Suicidal ideation: 5. Major depressive disorder: 6. Attention-deficit hyperactivity disorder, unspecified type: 7. Alcohol abuse: Patient has this history of alcohol abuse. Ethanol level was 0 8. Borderline personality disorder: 9. Drug overdose: 10. Suicidal ideations: 11. PTSD (post-traumatic stress disorder): 12. Bipolar disorder with depression: 13. Suicide attempt: 14. Panic attacks: 15. History of OCD (obsessive compulsive disorder): Plan: 24-year-old white male extensive history of multiple inpatient hospitalizations with borderline personality traits, dysthymia, extremely poor coping skills and signficant attention seeking behavior who presents once again with suicidal ideation with overdose with intubation in ICU. Patient has poor impulse control and continued affective instability. 1. Encourage individual, group and milieu therapy. 2. Recommend sober living treatment at the highest level of care to which the patient is willing to commit. Possibility for rehab bed sooner rather than later so we will need to address whether he is safe and/or ready for this option. 3. Continue one-to-one that she has been on for some time. Patient switched back to every 15 minute checks. 4. Will simplify medication regimen, these medications have been unhelpful and patient requires more intense psychotherapy possibly in long-term facility. Patient requires case management services, intense DBT services. 5. Will restart [place] at 300mg twice a day only. Hold buspar, depakote. Will restart trazodone, and thorazine. Hold Effexor XR for now. Will discontinue Thorazine as patient reporting that he feels like that is what has been making him fall with regularity now. However this behavior has been seen in previous hospitalizations and appears intentional. His falls have gotten more frequent. May consider Geodon or some other antipsychotic. Will restart BuSpar. Check lithium level. Increased Effexor XR to 150 mg p.o. daily. Hold lithium until lithium level obtained. Increase lithium to 900 mg p.o. daily in divided dose. 6. Patient likely to require court appointed guardianship. 21-day hold hearing today and 21-day hold granted. All paperwork for guardianship has been submitted. Guardianship hearing tomorrow, 02/04/2025. Working on discharge location. [facility] for discharge tomorrow or the next day. Had his hearing and Ermias Leggett is his guardian. So no longer on a 21-day hold. PDMP PDMP Reviewed: Not Reviewed Involuntary Hold Information 2 Hold Status: Legal Status: Active Guardianship Date/Time Hold Expires: 96 Hour Hold: 96 Hour Involuntary Admission: Yes Other Hold: Hold End Date: 07/01/24 Attestations NPU 2 Medical Necessity Statement*: Inpatient hospitalization is medically necessary and the clinically appropriate intervention at this time. We will monitor medications and make changes as indicated. The patient's likely length of stay will be hopefully 2-4 days as we search for placement. Coding Level of Care Code Acute Code for Chg Fwd Diagnoses Suicidal behavior with attempted self-injury T14.91XA Multiple drug overdose T50.911A Toxic encephalopathy G92.9 Suicidal ideation R45.851 Major depressive disorder F32.9 Attention-deficit hyperactivity disorder, unspecified type F90.9 Alcohol abuse F10.10 Borderline personality disorder F60.3 Drug overdose T50.902A Encounter type: initial encounter Injury intent: intentional self-harm PTSD (post-traumatic stress disorder) F43.10 Bipolar disorder with depression F31.9 Suicide attempt T14.91XA Panic attacks F41.0 History of OCD (obsessive compulsive disorder) Z86.59
[2025-02-09 09:09] LABS: Hematocrit 41.3 % (37-53); Hemoglobin 13.70 g/dL (11.27-16.99); Mean Corpuscular HGB Conc 33.2 g/dL (30-55); Mean Corpuscular Hemoglobin 30.6 pg (27-33); Mean Corpuscular Volume 92.4 fl (82-101); Nucleated Red Blood Cells % 0 %; Platelet Count 277 10^3/cmm (157-399); Red Blood Count 4.47 10^6/uL (3.85-5.65); White Blood Count 5.88 10^3/uL (3.29-11.43)
[2025-02-09 09:32] LABS: Lithium 0.3 mmol/L (0.6-1.2)
[2025-02-09] MEDS: venlafaxine ER (24HR) 75 mg Capsule 150 MG PO (10:44)
[2025-02-09 13:58] VITALS: BP 127/82; PULSE 101; RESP 17; TEMP 37; O2SAT 98
[2025-02-09 21:22] VITALS: BP 125/81; PULSE 95; RESP 18; TEMP 36.9; O2SAT 99
[2025-02-10 06:00] VITALS: BP 118/73; PULSE 85; RESP 16; TEMP 36.4; O2SAT 99
[2025-02-10] MEDS: venlafaxine ER (24HR) 75 mg Capsule 150 MG PO (08:01)
[2025-02-10 14:00] VITALS: BP 130/82; PULSE 99; RESP 18; TEMP 37.1; O2SAT 97
--- NOTE | 2025-02-10 16:41 | W.PM.NPUPNS ---
Subjective NPU Subjective: 24-year-old male with borderline personality disorder, PTSD, ADHD, and depression admitted with chronic suicidality currently awaiting placement under guardianship. He reports that he has been doing better. He continued to report that he struggled with sustaining attention in groups and requested that he be restarted on medication to help him with his focus. He reported no side effects from his current medication regimen. He had attended groups and was compliant and redirectable stating that he was in a better place currently. He had reported having fleeting feelings of hopelessness. He had reported no side effects from the increase in lithium. Mental Status Exam MSE Comments: This is a well-nourished, well-developed, white male, in hospital scrubs seen in room with adequate grooming and fleeting eye contact. There was no evidence of any abnormal involuntary motor movements. He was more cooperative with exam. Speech was more normal in rate and volume, and normal in production. Mood described as allright. His affect was less dysphoric. Thought process was linear and organized. Thought content: patient denies active homicidal ideation and denies active suicidal ideation with no plan at this time. However he continues to have what must be interpreted as self-injurious behavior as he continues to fall to the ground inexplicably. Patient denied any auditory or visual hallucinations. There was no evidence of delusional thinking. Attention, concentration, and memory appeared intact. He is alert and oriented times three. Insight was poor. Judgment was poor Impulse control was improving. Vitals/I&O/Wt Last Vital Signs Temp 98.7 F 02/10/25 14:00 Pulse 99 02/10/25 14:00 Resp 18 02/10/25 14:00 BP 130/82 02/10/25 14:00 Pulse Ox 97 02/10/25 14:00 O2 Del Method Room Air 02/10/25 06:00 O2 Flow Rate 6 01/19/25 04:45 FiO2 24 01/20/25 12:24 Physical Exam Urinary Catheter Management: Perez: Cath Placed During This Visit: yes Urinary Catheter Date of Insertion: 01/19/25 Urinary Catheter Time of Insertion: 05:15 Data NPU 02/09/25 09:01 01/20/25 05:45 A&P Assessment and plan 1. Suicidal behavior with attempted self-injury: 2. Multiple drug overdose: 3. Toxic encephalopathy: 4. Suicidal ideation: 5. Major depressive disorder: 6. Attention-deficit hyperactivity disorder, unspecified type: 7. Alcohol abuse: Patient has this history of alcohol abuse. Ethanol level was 0 8. Borderline personality disorder: 9. Drug overdose: 10. Suicidal ideations: 11. PTSD (post-traumatic stress disorder): 12. Bipolar disorder with depression: 13. Suicide attempt: 14. Panic attacks: 15. History of OCD (obsessive compulsive disorder): Plan: 24-year-old white male extensive history of multiple inpatient hospitalizations with borderline personality traits, dysthymia, extremely poor coping skills and signficant attention seeking behavior who presents once again with suicidal ideation with overdose with intubation in ICU. Patient has poor impulse control and continued affective instability. 1. Encourage individual, group and milieu therapy. 2. Recommend sober living treatment at the highest level of care to which the patient is willing to commit. Possibility for rehab bed sooner rather than later so we will need to address whether he is safe and/or ready for this option. 3. Continue one-to-one that she has been on for some time. Patient switched back to every 15 minute checks. 4. Will simplify medication regimen, these medications have been unhelpful and patient requires more intense psychotherapy possibly in long term acute care registered nurse facility. Patient requires case management services, intense DBT services. 5. Will restart [place] at 300mg twice a day only. Hold buspar, depakote. Will restart trazodone, and thorazine. Hold Effexor XR for now. Will discontinue Thorazine as patient reporting that he feels like that is what has been making him fall with regularity now. However this behavior has been seen in previous hospitalizations and appears intentional. His falls have gotten more frequent. May consider Geodon or some other antipsychotic. Will restart BuSpar. Check lithium level. Increased Effexor XR to 150 mg p.o. daily. Hold lithium until lithium level obtained. Increase lithium to 900 mg p.o. daily in divided dose. 6. Patient likely to require court appointed guardianship. 21-day hold hearing today and 21-day hold granted. All paperwork for guardianship has been submitted. Guardianship hearing tomorrow, 02/04/2025. Working on discharge location. [facility] for discharge tomorrow or the next day. Had his hearing and Ermias Leggett is his guardian. So no longer on a 21-day hold. 7. Add Ritalin 5mg daily with plan to watch slowly for increased irritability. PDMP PDMP Reviewed: Not Reviewed Involuntary Hold Information Hold Status: Legal Status: Active Guardianship Date/Time Hold Expires: 02/18/2025 96 Hour Hold: 96 Hour Involuntary Admission: Yes Other Hold: Hold End Date: 07/01/24 Attestations NPU Medical Necessity Statement*: Inpatient hospitalization is medically necessary and the clinically appropriate intervention at this time. We will monitor medications and make changes as indicated. The patient's likely length of stay will be hopefully 5-7 days as we search for placement. Coding Level of Care Code Acute Code for Chg Fwd Diagnoses Suicidal behavior with attempted self-injury T14.91XA Multiple drug overdose T50.911A Toxic encephalopathy G92.9 Suicidal ideation R45.851 Major depressive disorder F32.9 Attention-deficit hyperactivity disorder, unspecified type F90.9 Alcohol abuse F10.10 Borderline personality disorder F60.3 Drug overdose T50.902A Encounter type: initial encounter Injury intent: intentional self-harm PTSD (post-traumatic stress disorder) F43.10 Bipolar disorder with depression F31.9 Suicide attempt T14.91XA Panic attacks F41.0 History of OCD (obsessive compulsive disorder) Z86.59
[2025-02-10 20:30] VITALS: BP 128/86; PULSE 91; RESP 18; TEMP 36.9; O2SAT 95
[2025-02-11 06:00] VITALS: BP 148/89; PULSE 82; RESP 18; TEMP 36.5; O2SAT 98
[2025-02-11] MEDS: venlafaxine ER (24HR) 75 mg Capsule 150 MG PO (08:30)
[2025-02-11 14:00] VITALS: BP 142/94; PULSE 102; RESP 18; TEMP 36.9; O2SAT 98
--- NOTE | 2025-02-11 15:03 | W.PM.NPUPNS ---
Subjective NPU Subjective: 24-year-old male with borderline personality disorder, PTSD, ADHD, and depression admitted with chronic suicidality currently awaiting placement under guardianship. Patient reported no side effects from the initiation of Ritalin. He reports his mood has been good. He has been able to attend groups. He reported no side effects from his medication regimen. He continued to remain optimistic about placement stating that he wanted help with managing his problems with mood dysregulation. There was no acts of aggression noted here. Mental Status Exam MSE Comments: This is a well-nourished, well-developed, white male, in hospital scrubs seen in room with adequate grooming and fleeting eye contact. There was no evidence of any abnormal involuntary motor movements. He was more cooperative with exam. Speech was more normal in rate and volume, and normal in production. Mood described as good. His affect was euthymic. Thought process was linear and organized. Thought content: patient denies active homicidal ideation and denies active suicidal ideation with no plan at this time. However he continues to have what must be interpreted as self-injurious behavior as he continues to fall to the ground inexplicably. Patient denied any auditory or visual hallucinations. There was no evidence of delusional thinking. Attention, concentration, and memory appeared intact. He is alert and oriented times three. Insight was poor. Judgment was poor Impulse control was improving. Vitals/I&O/Wt Last Vital Signs Temp 97.7 F 02/11/25 06:00 Pulse 82 02/11/25 06:00 Resp 18 02/11/25 06:00 BP 148/89 02/11/25 06:00 Pulse Ox 98 02/11/25 06:00 O2 Del Method Room Air 02/11/25 06:00 O2 Flow Rate 6 01/19/25 04:45 FiO2 24 01/20/25 12:24 Physical Exam Urinary Catheter Management: Perez: Cath Placed During This Visit: yes Urinary Catheter Date of Insertion: 01/19/25 Urinary Catheter Time of Insertion: 05:15 Data NPU 02/09/25 09:01 01/20/25 05:45 A&P Assessment and plan 1. Suicidal behavior with attempted self-injury: 2. Multiple drug overdose: 3. Toxic encephalopathy: 4. Suicidal ideation: 5. Major depressive disorder: 6. Attention-deficit hyperactivity disorder, unspecified type: 7. Alcohol abuse: Patient has this history of alcohol abuse. Ethanol level was 0 8. Borderline personality disorder: 9. Drug overdose: 10. Suicidal ideations: 11. PTSD (post-traumatic stress disorder): 12. Bipolar disorder with depression: 13. Suicide attempt: 14. Panic attacks: 15. History of OCD (obsessive compulsive disorder): Plan: 24-year-old white male extensive history of multiple inpatient hospitalizations with borderline personality traits, dysthymia, extremely poor coping skills and signficant attention seeking behavior who presents once again with suicidal ideation with overdose with intubation in ICU. Patient has poor impulse control and continued affective instability. 1. Encourage individual, group and milieu therapy. 2. Recommend sober living treatment at the highest level of care to which the patient is willing to commit. Possibility for rehab bed sooner rather than later so we will need to address whether he is safe and/or ready for this option. 3. Continue one-to-one that she has been on for some time. Patient switched back to every 15 minute checks. 4. Will simplify medication regimen, these medications have been unhelpful and patient requires more intense psychotherapy possibly in [facility] facility. Patient requires case management services, intense DBT services. 5. Will restart [place] at 300mg twice a day only. Hold buspar, depakote. Will restart trazodone, and thorazine. Hold Effexor XR for now. Will discontinue Thorazine as patient reporting that he feels like that is what has been making him fall with regularity now. However this behavior has been seen in previous hospitalizations and appears intentional. His falls have gotten more frequent. May consider Geodon or some other antipsychotic. Will restart BuSpar. Check lithium level. Increased Effexor XR to 150 mg p.o. daily. Hold lithium until lithium level obtained. Increase lithium to 900 mg p.o. daily in divided dose. 6. Patient likely to require court appointed guardianship. 21-day hold hearing today and 21-day hold granted. All paperwork for guardianship has been submitted. Guardianship hearing tomorrow, 02/04/2025. Working on discharge location. [facility] for discharge tomorrow or the next day. Had his hearing and Ermias Leggett is his guardian. 7. Increase ritalin to 5mg bid with plan to watch slowly for increased irritability. PDMP PDMP Reviewed: Not Reviewed Involuntary Hold Information Hold Status: Legal Status: Active Guardianship Date/Time Hold Expires: 02/18/2025 96 Hour Hold: 96 Hour Involuntary Admission: Yes Other Hold: Hold End Date: 07/01/24 Attestations NPU Medical Necessity Statement*: Inpatient hospitalization is medically necessary and the clinically appropriate intervention at this time. We will monitor medications and make changes as indicated. The patient's likely length of stay will be hopefully 5-7 days as we search for placement. Coding Level of Care Code Acute Code for Chg Fwd Diagnoses Suicidal behavior with attempted self-injury T14.91XA Multiple drug overdose T50.911A Toxic encephalopathy G92.9 Suicidal ideation R45.851 Major depressive disorder F32.9 Attention-deficit hyperactivity disorder, unspecified type F90.9 Alcohol abuse F10.10 Borderline personality disorder F60.3 Drug overdose T50.902A Encounter type: initial encounter Injury intent: intentional self-harm PTSD (post-traumatic stress disorder) F43.10 Bipolar disorder with depression F31.9 Suicide attempt T14.91XA Panic attacks F41.0 History of OCD (obsessive compulsive disorder) Z86.59
[2025-02-11 19:06] VITALS: BP 145/85; PULSE 84; RESP 18; TEMP 37.1; O2SAT 98
[2025-02-12 06:00] VITALS: BP 139/90; PULSE 78; RESP 19; TEMP 36.6; O2SAT 95
[2025-02-12] MEDS: venlafaxine ER (24HR) 75 mg Capsule 150 MG PO (08:42)
--- NOTE | 2025-02-12 12:32 | PC.NURSE ---
1150 This pt and another pt on the unit exchanged some words in the dayroom, over who's chair it was. This pt became very upset and felt that he was verbally threatened by his peer. House Sup. was alerted of the situation, also the community action worker was informed. Pt felt that the staff didn't care about his feelings and requested to file a complaint form. Security and this insurance underwriter spoke with pt and calmed pt down somewhat. Medications were administered to aid the pt with remaining calm. Madai from [facility] came and spoke with the pt and that was a huge help in keeping pt calm.
--- NOTE | 2025-02-12 13:52 | P.NPUPN_ITS ---
Subjective NPU 2 Subjective: 24-year-old male with borderline persona lity disorder, PTSD, ADHD, and depression admitted with chronic suicidality currently awaiting placement under guardianship. The patient had reported that he was feeling optimistic. He reported no side effects from his medications. He had reported no significant improvement in regards to attention and concentration as he continued to report having difficulties with staying on task. He had reported no suicidal thoughts. He had reported that he continue to require help for managing his intense mood swings and managing his suicidal thoughts that presented itself begin significant situations at home. He had been redirectable and attending groups. There had been no acts of aggression. He had expressed desire to receive any form of therapy to help him manage his mood swings. He reported no side effects from the lithium at this time. Mental Status Exam 2 MSE Comments: This is a well-nourished, well-developed, white male, in hospital scrubs seen in room with adequate grooming and fleeting eye contact. There was no evidence of any abnormal involuntary motor movements. He was more cooperative with exam. Speech was more normal in rate and volume, and normal in production. Mood described as okay. His affect was slightly restricted today. Thought process was linear and organized. Thought content: patient denies active homicidal ideation and denies active suicidal ideation with no plan at this time. Patient denied any auditory or visual hallucinations. There was no evidence of delusional thinking. Attention span was poor. Insight is poor. Judgment is limited. Impulse control is guarded. He is alert and oriented times three. Vitals/I&O/Wt Last Vital Signs Temp 97.8 F 02/12/25 06:00 Pulse 78 02/12/25 06:00 Resp 19 H 02/12/25 06:00 BP 139/90 02/12/25 06:00 Pulse Ox 95 02/12/25 06:00 O2 Del Method Room Air 02/12/25 06:00 O2 Flow Rate 6 01/19/25 04:45 FiO2 24 01/20/25 12:24 Physical Exam 2 Urinary Catheter Management: Perez: Cath Placed During This Visit: yes Urinary Catheter Date of Insertion: 01/19/25 Urinary Catheter Time of Insertion: 05:15 Data NPU 02/09/25 09:01 01/20/25 05:45 A&P Assessment and plan 1. Suicidal behavior with attempted self-injury: 2. Multiple drug overdose: 3. Toxic encephalopathy: 4. Suicidal ideation: 5. Major depressive disorder: 6. Attention-deficit hyperactivity disorder, unspecified type: 7. Alcohol abuse: Patient has this history of alcohol abuse. Ethanol level was 0 8. Borderline personality disorder: 9. Drug overdose: 10. Suicidal ideations: 11. PTSD (post-traumatic stress disorder): 12. Bipolar disorder with depression: 13. Suicide attempt: 14. Panic attacks: 15. History of OCD (obsessive compulsive disorder): Plan: 24-year-old white male extensive history of multiple inpatient hospitalizations with borderline personality traits, dysthymia, extremely poor coping skills and signficant attention seeking behavior who presents once again with suicidal ideation with overdose with intubation in ICU. Patient has poor impulse control and continued affective instability. 1. Encourage individual, group and milieu therapy. 2. Recommend sober living treatment at the highest level of care to which the patient is willing to commit. Possibility for rehab bed sooner rather than later so we will need to address whether he is safe and/or ready for this option. 3. Continue one-to-one that she has been on for some time. Patient switched back to every 15 minute checks. 4. Will simplify medication regimen, these medications have been unhelpful and patient requires more intense psychotherapy possibly in [facility] facility. Patient requires case management services, intense DBT services. 5. Will restart [place] at 300mg twice a day only. Hold buspar, depakote. Will restart trazodone, and thorazine. Hold Effexor XR for now. Will discontinue Thorazine as patient reporting that he feels like that is what has been making him fall with regularity now. However this behavior has been seen in previous hospitalizations and appears intentional. His falls have gotten more frequent. May consider Geodon or some other antipsychotic. Will restart BuSpar. Check lithium level. Increased Effexor XR to 150 mg p.o. daily. Hold lithium until lithium level obtained. Increase lithium to 900 mg p.o. daily in divided dose. 6. Patient likely to require court appointed guardianship. 21-day hold hearing today and 21-day hold granted. All paperwork for guardianship has been submitted. Guardianship hearing tomorrow, 02/04/2025. Working on discharge location. Hope for discharge tomorrow or the next day. Had his hearing and Ermias Leggett is his guardian. 7. Increase ritalin to 5mg tid with plan to watch slowly for increased irritability. PDMP PDMP Reviewed: Not Reviewed Involuntary Hold Information 2 Hold Status: Legal Status: Active Guardianship Date/Time Hold Expires: 96 Hour Hold: 96 Hour Involuntary Admission: Yes Other Hold: Hold End Date: 07/01/24 Attestations NPU 2 Medical Necessity Statement*: Inpatient hospitalization is medically necessary and the clinically appropriate intervention at this time. We will monitor medications and make changes as indicated. The patient's likely length of stay will be hopefully 5-7 days as we search for placement. Coding Level of Care Code Acute Code for Chg Fwd Diagnoses Suicidal behavior with attempted self-injury T14.91XA Multiple drug overdose T50.911A Toxic encephalopathy G92.9 Suicidal ideation R45.851 Major depressive disorder F32.9 Attention-deficit hyperactivity disorder, unspecified type F90.9 Alcohol abuse F10.10 Borderline personality disorder F60.3 Drug overdose T50.902A Encounter type: initial encounter Injury intent: intentional self-harm PTSD (post-traumatic stress disorder) F43.10 Bipolar disorder with depression F31.9 Suicide attempt T14.91XA Panic attacks F41.0 History of OCD (obsessive compulsive disorder) Z86.59
[2025-02-12 14:00] VITALS: BP 119/82; PULSE 81; RESP 16; TEMP 36.9; O2SAT 98
[2025-02-12 22:00] VITALS: BP 131/88; PULSE 83; RESP 18; TEMP 37.1; O2SAT 98
[2025-02-13 06:00] VITALS: BP 105/73; PULSE 67; RESP 16; TEMP 36.4; O2SAT 97
[2025-02-13] MEDS: venlafaxine ER (24HR) 75 mg Capsule 150 MG PO (08:16)
[2025-02-13 13:14] VITALS: BP 150/95; PULSE 95; RESP 16; TEMP 37; O2SAT 97
--- NOTE | 2025-02-13 14:06 | W.PM.NPUPNS ---
Subjective NPU Subjective: 24-year-old male with borderline personality disorder, PTSD, ADHD, and depression admitted with chronic suicidality currently awaiting placement under guardianship. The patient reported no side effects from his medication. He did appear to have elevated blood pressure today at 150/95. He had previously been on an antihypertensive and had been taking propranolol as needed only for anxiety. The patient continues to remain hopeful about being placed in a facility. He has not engaged in any suicidal behavior but reports having occasional thoughts of depression. He had reported that he did have a significant amount of stress in his home environment. He had reported having less frequent mood swings on his current medication regimen. He was able to attend groups without any issue. Mental Status Exam MSE Comments: This is a well-nourished, well-developed, white male, in hospital scrubs seen in room with adequate grooming and fleeting eye contact. There was no evidence of any abnormal involuntary motor movements. He was more cooperative with exam. Speech was more normal in rate and volume, and normal in production. Mood described as okay. His affect was superficially brighter. Thought process was linear and organized. Thought content: patient denies active homicidal ideation and denies active suicidal ideation with no plan at this time. Patient denied any auditory or visual hallucinations. There was no evidence of delusional thinking. Attention span remained poor. Insight is poor. Judgment is limited. Impulse control is guarded. He is alert and oriented times three. Vitals/I&O/Wt Last Vital Signs Temp 98.6 F 02/13/25 13:14 Pulse 95 02/13/25 13:14 Resp 16 02/13/25 13:14 BP 150/95 02/13/25 13:14 Pulse Ox 97 02/13/25 13:14 O2 Del Method Room Air 02/13/25 13:14 O2 Flow Rate 6 01/19/25 04:45 FiO2 24 01/20/25 12:24 Physical Exam Urinary Catheter Management: Perez: Cath Placed During This Visit: yes Urinary Catheter Date of Insertion: 01/19/25 Urinary Catheter Time of Insertion: 05:15 Data NPU 02/09/25 09:01 01/20/25 05:45 A&P Assessment and plan 1. Suicidal behavior with attempted self-injury: 2. Multiple drug overdose: 3. Toxic encephalopathy: 4. Suicidal ideation: 5. Major depressive disorder: 6. Attention-deficit hyperactivity disorder, unspecified type: 7. Alcohol abuse: Patient has this history of alcohol abuse. Ethanol level was 0 8. Borderline personality disorder: 9. Drug overdose: 10. Suicidal ideations: 11. PTSD (post-traumatic stress disorder): 12. Bipolar disorder with depression: 13. Suicide attempt: 14. Panic attacks: 15. History of OCD (obsessive compulsive disorder): Plan: 24-year-old white male extensive history of multiple inpatient hospitalizations with borderline personality traits, dysthymia, extremely poor coping skills and signficant attention seeking behavior who presents once again with suicidal ideation with overdose with intubation in ICU. Patient has poor impulse control and continued affective instability. 1. Encourage individual, group and milieu therapy. 2. Recommend sober living treatment at the highest level of care to which the patient is willing to commit. Possibility for rehab bed sooner rather than later so we will need to address whether he is safe and/or ready for this option. 3. Continue one-to-one that she has been on for some time. Patient switched back to every 15 minute checks. 4. Will simplify medication regimen, these medications have been unhelpful and patient requires more intense psychotherapy possibly in group home facility. Patient requires case management services, intense DBT services. 5. Will restart [place] at 300mg twice a day only. Hold buspar, depakote. Will restart trazodone, and thorazine. Hold Effexor XR for now. Will discontinue Thorazine as patient reporting that he feels like that is what has been making him fall with regularity now. However this behavior has been seen in previous hospitalizations and appears intentional. His falls have gotten more frequent. May consider Geodon or some other antipsychotic. Will restart BuSpar. Check lithium level. Increased Effexor XR to 150 mg p.o. daily. Hold lithium until lithium level obtained. Increase lithium to 900 mg p.o. daily in divided dose. 6. Patient likely to require court appointed guardianship. 21-day hold hearing today and 21-day hold granted. All paperwork for guardianship has been submitted. Guardianship hearing tomorrow, 02/04/2025. Working on discharge location. Hope for discharge tomorrow or the next day. Had his hearing and Ermias Raviuitt is his guardian. 7. Increase ritalin to 10mg tid with plan to watch slowly for increased irritability. Added propranolol 10mg bid routinely for anxiety with secondary benefit possibly for hypertension. PDMP PDMP Reviewed: Not Reviewed Involuntary Hold Information Hold Status: Legal Status: Active Guardianship Date/Time Hold Expires: 02/18/2025 96 Hour Hold: 96 Hour Involuntary Admission: Yes Other Hold: Hold End Date: 07/01/24 Attestations NPU Medical Necessity Statement*: Inpatient hospitalization is medically necessary and the clinically appropriate intervention at this time. We will monitor medications and make changes as indicated. The patient's likely length of stay will be hopefully 5-7 days as we search for placement. Coding Level of Care Code Acute Code for Chg Fwd Diagnoses Suicidal behavior with attempted self-injury T14.91XA Multiple drug overdose T50.911A Toxic encephalopathy G92.9 Suicidal ideation R45.851 Major depressive disorder F32.9 Attention-deficit hyperactivity disorder, unspecified type F90.9 Alcohol abuse F10.10 Borderline personality disorder F60.3 Drug overdose T50.902A Encounter type: initial encounter Injury intent: intentional self-harm PTSD (post-traumatic stress disorder) F43.10 Bipolar disorder with depression F31.9 Suicide attempt T14.91XA Panic attacks F41.0 History of OCD (obsessive compulsive disorder) Z86.59
[2025-02-13] MEDS: phenyleph-mineral oil-petrolat Oint 28 gm 1 APPLIC TOPICAL (18:07)
[2025-02-13 19:56] VITALS: BP 128/86; PULSE 87; RESP 19; TEMP 36.8; O2SAT 97
--- NOTE | 2025-02-14 04:20 | PC.NURSE ---
Parth has been pleasant and cooperative with cares. He has interacted with peers even helping one peer who was having a difficult time being here invountarily. Patient verbalized I understand how he feels. I've been there. Patient did have difficulty fallng asleep last night. He received PRN trazadone, vistaril and olanzapine po for this.
[2025-02-14 06:00] VITALS: BP 116/60; PULSE 66; RESP 16; TEMP 37.1; O2SAT 98
[2025-02-14] MEDS: venlafaxine ER (24HR) 75 mg Capsule 150 MG PO (08:29)
[2025-02-14] MEDS: phenyleph-mineral oil-petrolat Oint 28 gm 1 APPLIC TOPICAL (09:25)
[2025-02-14 14:00] VITALS: BP 136/89; PULSE 92; RESP 16; TEMP 36.7; O2SAT 99
--- NOTE | 2025-02-14 19:37 | P.NPUPN_ITS ---
Subjective NPU 2 Subjective: 24-year-old male with borderline persona lity disorder, PTSD, ADHD, and depression admitted with chronic suicidality currently awaiting placement under guardianship. Patient reported no side effects from his medication regimen. He remained in good spirits here. He had remained hopeful about finding a place to go to receive further help with his problems with mood instability and managing distress. He had not endorsed any thoughts of hurting himself or others. He reported adequate sleep. He had yet to report any improvement in regards to his ability to stay on task. He continued to report feeling bored and easily distracted but stated that he was able to attend groups and did not feel any increase in anxiety with the slow titration of the Ritalin. Mental Status Exam 2 MSE Comments: This is a well-nourished, well-developed, white male, in hospital scrubs seen in room with adequate grooming and good eye contact. There was no evidence of any abnormal involuntary motor movements. He was more cooperative with exam. Speech was normal in rate, rhythm and volume, and normal in production. Mood described as okay. His affect was superficially brighter. Thought process was linear and organized. Thought content: patient denies active homicidal ideation and denies active suicidal ideation with no plan at this time. Patient denied any auditory or visual hallucinations. There was no evidence of delusional thinking. Attention span remained poor. Insight is poor. Judgment is limited. Impulse control is fair. He is alert and oriented times three. Vitals/I&O/Wt Last Vital Signs Temp 98.0 F 02/14/25 14:00 Pulse 92 02/14/25 14:00 Resp 16 02/14/25 14:00 BP 136/89 02/14/25 14:00 Pulse Ox 99 02/14/25 14:00 O2 Del Method Room Air 02/14/25 14:00 O2 Flow Rate 6 01/19/25 04:45 FiO2 24 01/20/25 12:24 Physical Exam 2 Urinary Catheter Management: Perez: Cath Placed During This Visit: yes Urinary Catheter Date of Insertion: 01/19/25 Urinary Catheter Time of Insertion: 05:15 Data NPU 02/09/25 09:01 01/20/25 05:45 A&P Assessment and plan 1. Suicidal behavior with attempted self-injury: 2. Multiple drug overdose: 3. Toxic encephalopathy: 4. Suicidal ideation: 5. Major depressive disorder: 6. Attention-deficit hyperactivity disorder, unspecified type: 7. Alcohol abuse: Patient has this history of alcohol abuse. Ethanol level was 0 8. Borderline personality disorder: 9. Drug overdose: 10. Suicidal ideations: 11. PTSD (post-traumatic stress disorder): 12. Bipolar disorder with depression: 13. Suicide attempt: 14. Panic attacks: 15. History of OCD (obsessive compulsive disorder): Plan: 24-year-old white male extensive history of multiple inpatient hospitalizations with borderline personality traits, dysthymia, extremely poor coping skills and signficant attention seeking behavior who presents once again with suicidal ideation with overdose with intubation in ICU. Patient has poor impulse control and continued affective instability. 1. Encourage individual, group and milieu therapy. 2. Recommend sober living treatment at the highest level of care to which the patient is willing to commit. Possibility for rehab bed sooner rather than later so we will need to address whether he is safe and/or ready for this option. 3. Continue one-to-one that she has been on for some time. Patient switched back to every 15 minute checks. 4. Will simplify medication regimen, these medications have been unhelpful and patient requires more intense psychotherapy possibly in [facility] facility. Patient requires case management services, intense DBT services. 5. Will restart [place] at 300mg twice a day only. Hold buspar, depakote. Will restart trazodone, and thorazine. Hold Effexor XR for now. Will discontinue Thorazine as patient reporting that he feels like that is what has been making him fall with regularity now. However this behavior has been seen in previous hospitalizations and appears intentional. His falls have gotten more frequent. May consider Geodon or some other antipsychotic. Will restart BuSpar. Check lithium level. Increased Effexor XR to 150 mg p.o. daily. Hold lithium until lithium level obtained. Increase lithium to 900 mg p.o. daily in divided dose. 6. Patient likely to require court appointed guardianship. 21-day hold hearing today and 21-day hold granted. All paperwork for guardianship has been submitted. Guardianship hearing tomorrow, 02/04/2025. Working on discharge location. Hope for discharge tomorrow or the next day. Had his hearing and Ermias Leggett is his guardian. 7. Continue ritalin to 10mg tid with plan to watch slowly for increased irritability. Added propranolol 10mg bid routinely for anxiety with secondary benefit possibly for hypertension. PDMP PDMP Reviewed: Not Reviewed Involuntary Hold Information 2 Hold Status: Legal Status: Active Guardianship Date/Time Hold Expires: 96 Hour Hold: 96 Hour Involuntary Admission: Yes Other Hold: Hold End Date: 07/01/24 Attestations NPU 2 Medical Necessity Statement*: Inpatient hospitalization is medically necessary and the clinically appropriate intervention at this time. We will monitor medications and make changes as indicated. The patient's likely length of stay will be hopefully 6-8 days as we search for placement. Coding Level of Care Code Acute Code for Chg Fwd Diagnoses Suicidal behavior with attempted self-injury T14.91XA Multiple drug overdose T50.911A Toxic encephalopathy G92.9 Suicidal ideation R45.851 Major depressive disorder F32.9 Attention-deficit hyperactivity disorder, unspecified type F90.9 Alcohol abuse F10.10 Borderline personality disorder F60.3 Drug overdose T50.902A Encounter type: initial encounter Injury intent: intentional self-harm PTSD (post-traumatic stress disorder) F43.10 Bipolar disorder with depression F31.9 Suicide attempt T14.91XA Panic attacks F41.0 History of OCD (obsessive compulsive disorder) Z86.59
[2025-02-14 21:26] VITALS: BP 117/81; PULSE 77; RESP 18; TEMP 36.7; O2SAT 98
[2025-02-15 06:00] VITALS: BP 137/87; PULSE 93; RESP 19; TEMP 36.4; O2SAT 97
[2025-02-15] MEDS: venlafaxine ER (24HR) 75 mg Capsule 150 MG PO (07:55)
--- NOTE | 2025-02-15 12:16 | P.NPUPN_ITS ---
Subjective NPU 2 Subjective: 24-year-old male with borderline persona lity disorder, PTSD, ADHD, and depression admitted with chronic suicidality currently awaiting placement under guardianship. The patient reported that he was getting antsy but remained optimistic about placement. He had reported that his mood had been stable although he reports having periods of depression and feelings of hopelessness. He had not endorsed any current thoughts of self injury. He had reported continued difficulties with managing stress in his previous home environment. He had reported no mood fluctuations associated with conversations with his family members. He continued to report struggles with staying on task but was able to attend groups and stated that he had some insomnia yesterday. He did not endorse any active suicidal thoughts. Mental Status Exam 2 MSE Comments: This is a well-nourished, well-developed, white male, in hospital scrubs seen in room with adequate grooming and good eye contact. There was no evidence of any abnormal involuntary motor movements. He was more cooperative with exam. Speech was normal in rate, rhythm and volume, and normal in production. Mood described as allright. His affect was subdued today. Thought process was linear and organized. Thought content: patient denies active homicidal ideation and denies active suicidal ideation with no plan at this time. Patient denied any auditory or visual hallucinations. There was no evidence of delusional thinking. Attention span remained poor. Insight is poor. Judgment is limited. Impulse control is guarded. He is alert and oriented times three. Vitals/I&O/Wt Last Vital Signs Temp 97.5 F L 02/15/25 06:00 Pulse 93 02/15/25 06:00 Resp 19 H 02/15/25 06:00 BP 137/87 02/15/25 06:00 Pulse Ox 97 02/15/25 06:00 O2 Del Method Room Air 02/15/25 06:00 O2 Flow Rate 6 01/19/25 04:45 FiO2 24 01/20/25 12:24 Physical Exam 2 Urinary Catheter Management: Perez: Cath Placed During This Visit: yes Urinary Catheter Date of Insertion: 01/19/25 Urinary Catheter Time of Insertion: 05:15 Data NPU 02/09/25 09:01 01/20/25 05:45 A&P Assessment and plan 1. Suicidal behavior with attempted self-injury: 2. Multiple drug overdose: 3. Toxic encephalopathy: 4. Suicidal ideation: 5. Major depressive disorder: 6. Attention-deficit hyperactivity disorder, unspecified type: 7. Alcohol abuse: Patient has this history of alcohol abuse. Ethanol level was 0 8. Borderline personality disorder: 9. Drug overdose: 10. Suicidal ideations: 11. PTSD (post-traumatic stress disorder): 12. Bipolar disorder with depression: 13. Suicide attempt: 14. Panic attacks: 15. History of OCD (obsessive compulsive disorder): Plan: 24-year-old white male extensive history of multiple inpatient hospitalizations with borderline personality traits, dysthymia, extremely poor coping skills and signficant attention seeking behavior who presents once again with suicidal ideation with overdose with intubation in ICU. Patient has poor impulse control and continued affective instability. 1. Encourage individual, group and milieu therapy. 2. Recommend sober living treatment at the highest level of care to which the patient is willing to commit. Possibility for rehab bed sooner rather than later so we will need to address whether he is safe and/or ready for this option. 3. Continue one-to-one that she has been on for some time. Patient switched back to every 15 minute checks. 4. Will simplify medication regimen, these medications have been unhelpful and patient requires more intense psychotherapy possibly in [facility] facility. Patient requires case management services, intense DBT services. 5. Will restart [place] at 300mg twice a day only. Hold buspar, depakote. Will restart trazodone, and thorazine. Hold Effexor XR for now. Will discontinue Thorazine as patient reporting that he feels like that is what has been making him fall with regularity now. However this behavior has been seen in previous hospitalizations and appears intentional. His falls have gotten more frequent. May consider Geodon or some other antipsychotic. Will restart BuSpar. Check lithium level. Increased Effexor XR to 150 mg p.o. daily. Hold lithium until lithium level obtained. Increase lithium to 900 mg p.o. daily in divided dose. 6. Patient now has guardianship under Erm[employer] Leggett, awaiting placement, several referrals sent. Hopeful about options for him for placement with level 2 complete and patient willing to receive intense supports to prevent further near lethal attempts in home environment. 7. Continue ritalin to 10mg tid with plan to watch slowly for increased irritability. Continue propranolol 10mg bid routinely for anxiety with secondary benefit possibly for hypertension. PDMP PDMP Reviewed: Not Reviewed Involuntary Hold Information 2 Hold Status: Legal Status: Active Guardianship Date/Time Hold Expires: 96 Hour Hold: 96 Hour Involuntary Admission: Yes Other Hold: Hold End Date: 07/01/24 Attestations NPU 2 Medical Necessity Statement*: Inpatient hospitalization is medically necessary and the clinically appropriate intervention at this time. We will monitor medications and make changes as indicated. The patient's likely length of stay will be hopefully 6-8 days as we search for placement. Coding Level of Care Code Acute Code for Chg Fwd Diagnoses Suicidal behavior with attempted self-injury T14.91XA Multiple drug overdose T50.911A Toxic encephalopathy G92.9 Suicidal ideation R45.851 Major depressive disorder F32.9 Attention-deficit hyperactivity disorder, unspecified type F90.9 Alcohol abuse F10.10 Borderline personality disorder F60.3 Drug overdose T50.902A Encounter type: initial encounter Injury intent: intentional self-harm PTSD (post-traumatic stress disorder) F43.10 Bipolar disorder with depression F31.9 Suicide attempt T14.91XA Panic attacks F41.0 History of OCD (obsessive compulsive disorder) Z86.59
[2025-02-15 14:00] VITALS: BP 130/87; PULSE 78; RESP 17; TEMP 36.6; O2SAT 98
[2025-02-15 21:46] VITALS: BP 135/85; PULSE 77; RESP 19; TEMP 36.5; O2SAT 98
[2025-02-16 06:00] VITALS: BP 110/70; PULSE 79; RESP 20; TEMP 36.6; O2SAT 100
[2025-02-16] MEDS: venlafaxine ER (24HR) 75 mg Capsule 150 MG PO (08:20)
--- NOTE | 2025-02-16 12:12 | P.NPUPN_ITS ---
Subjective NPU 2 Subjective: 24-year-old male with borderline persona lity disorder, PTSD, ADHD, and depression admitted with chronic suicidality currently awaiting placement under guardianship. The patient reported no side effects from his medication. He had endorsed some improvement in focus since starting the higher dose of Ritalin. Patient had no episodes of aggression. He continued to report having some periods of depression but states that he has been feeling more optimistic about placement. He did not engage in any self-injurious behavior. The patient reported him's improved sleep by taking trazodone later at night. He had endorsed no active suicidal thoughts. He continues to struggle with being forgetful and being easily distracted. Mental Status Exam 2 MSE Comments: This is a well-nourished, well-developed, white male, in hospital scrubs seen in room with adequate grooming and good eye contact. He was pleasant on interview. There was no evidence of any abnormal involuntary motor movements. He was more cooperative with exam. Speech was normal in rate, rhythm and volume, and normal in production. Mood described as good. His affect was slightly restricted. Thought process was linear and organized. Thought content: patient denies active homicidal ideation and denies active suicidal ideation with no plan at this time. Patient denied any auditory or visual hallucinations. There was no evidence of delusional thinking. Attention span remained poor. Insight is poor. Judgment is limited. Impulse control is guarded. He is alert and oriented times three. Vitals/I&O/Wt Last Vital Signs Temp 97.8 F 02/16/25 06:00 Pulse 79 02/16/25 06:00 Resp 20 H 02/16/25 06:00 BP 110/70 02/16/25 06:00 Pulse Ox 100 02/16/25 06:00 O2 Del Method Room Air 02/16/25 06:00 O2 Flow Rate 6 01/19/25 04:45 FiO2 24 01/20/25 12:24 02/15/25 02/16/25 02/16/25 22:59 06:59 14:59 Intake Total 0 / 0 0 / 0 Output Total 1200 / 2400 1200 / 1200 Balance -1200 / -2400 -1200 / -1200 Physical Exam 2 Urinary Catheter Management: Perez: Cath Placed During This Visit: yes Urinary Catheter Date of Insertion: 01/19/25 Urinary Catheter Time of Insertion: 05:15 Data NPU 02/09/25 09:01 01/20/25 05:45 A&P Assessment and plan 1. Suicidal behavior with attempted self-injury: 2. Multiple drug overdose: 3. Toxic encephalopathy: 4. Suicidal ideation: 5. Major depressive disorder: 6. Attention-deficit hyperactivity disorder, unspecified type: 7. Alcohol abuse: Patient has this history of alcohol abuse. Ethanol level was 0 8. Borderline personality disorder: 9. Drug overdose: 10. Suicidal ideations: 11. PTSD (post-traumatic stress disorder): 12. Bipolar disorder with depression: 13. Suicide attempt: 14. Panic attacks: 15. History of OCD (obsessive compulsive disorder): Plan: 24-year-old white male extensive history of multiple inpatient hospitalizations with borderline personality traits, dysthymia, extremely poor coping skills and signficant attention seeking behavior who presents once again with suicidal ideation with overdose with intubation in ICU. Patient has poor impulse control and continued affective instability. 1. Encourage individual, group and milieu therapy. 2. Recommend sober living treatment at the highest level of care to which the patient is willing to commit. Possibility for rehab bed sooner rather than later so we will need to address whether he is safe and/or ready for this option. 3. Continue one-to-one that she has been on for some time. Patient switched back to every 15 minute checks. 4. Will simplify medication regimen, these medications have been unhelpful and patient requires more intense psychotherapy possibly in [facility] facility. Patient requires case management services, intense DBT services. 5. Continue Effexor XR 150mg daily, continue [place] 450mg bid, check CMP, lithium level in am, 6. Patient now has guardianship under Erm[employer] Leggett, awaiting placement, several referrals sent. Hopeful about options for him for placement with level 2 complete and patient willing to receive intense supports to prevent further near lethal attempts in home environment. 7. Increase ritalin to 15mg tid with plan to watch slowly for increased irritability. Continue propranolol 10mg bid routinely for anxiety with secondary benefit possibly for hypertension. PDMP PDMP Reviewed: Not Reviewed Involuntary Hold Information 2 Hold Status: Legal Status: Active Guardianship Date/Time Hold Expires: 96 Hour Hold: 96 Hour Involuntary Admission: Yes Other Hold: Hold End Date: 07/01/24 Attestations NPU 2 Medical Necessity Statement*: Inpatient hospitalization is medically necessary and the clinically appropriate intervention at this time. We will monitor medications and make changes as indicated. The patient's likely length of stay will be hopefully 6-8 days as we search for placement. Coding Level of Care Code Acute Code for Chg Fwd Diagnoses Suicidal behavior with attempted self-injury T14.91XA Multiple drug overdose T50.911A Toxic encephalopathy G92.9 Suicidal ideation R45.851 Major depressive disorder F32.9 Attention-deficit hyperactivity disorder, unspecified type F90.9 Alcohol abuse F10.10 Borderline personality disorder F60.3 Drug overdose T50.902A Encounter type: initial encounter Injury intent: intentional self-harm PTSD (post-traumatic stress disorder) F43.10 Bipolar disorder with depression F31.9 Suicide attempt T14.91XA Panic attacks F41.0 History of OCD (obsessive compulsive disorder) Z86.59
[2025-02-16 14:00] VITALS: BP 141/94; PULSE 86; RESP 18; O2SAT 100
--- NOTE | 2025-02-16 15:29 | PC.NURSE ---
Pt stated that he would like to get started back on his Lisinopril for high blood pressure.
[2025-02-16 22:00] VITALS: BP 148/96; PULSE 85; RESP 17; TEMP 36.7; O2SAT 97
[2025-02-17 06:00] VITALS: BP 127/80; PULSE 63; RESP 18; TEMP 36.4; O2SAT 99
[2025-02-17] MEDS: venlafaxine ER (24HR) 75 mg Capsule 150 MG PO (08:58)
--- NOTE | 2025-02-17 13:14 | P.NPUPN_ITS ---
Subjective NPU 2 Subjective: 24-year-old male with borderline persona lity disorder, PTSD, ADHD, and depression admitted with chronic suicidality currently awaiting placement under guardianship. The patient had reported being frustrated being here. He had appeared more irritable and complained of having significant panic attacks here. He had stated that he felt overwhelmed and continued to remain frustrated about not having yet been placed. He appeared to pace the hallway for much of the morning and stated feeling excessively worried. He had struggled with distracting himself and staying in his room. He was able to attend groups. He continued to report limited benefit from the Ritalin at this time despite there being evidence of problems with inattention, poor organization skills, and frequent distractibility. He continues to struggle with staying on task. He had not endorsed any active thoughts of hurting himself. He did not require any as needed medications for aggression. Mental Status Exam 2 MSE Comments: This is a well-nourished, well-developed, white male, in hospital scrubs seen in room with adequate grooming and good eye contact. He was very anxious on interview. There was no evidence of any abnormal involuntary motor movements. He was cooperative with exam. Speech was increased in rate, rhythm and volume, and normal in production. Mood described as stressed. His affect was slightly restricted. Thought process was linear and organized. Thought content: patient denies active homicidal ideation and denies active suicidal ideation with no plan at this time. Patient denied any auditory or visual hallucinations. There was no evidence of delusional thinking. Attention span remained poor. Insight is poor. Judgment is limited. Impulse control is guarded. He is alert and oriented times three. Vitals/I&O/Wt Last Vital Signs Temp 97.5 F L 02/17/25 06:00 Pulse 63 02/17/25 06:00 Resp 18 02/17/25 06:00 BP 127/80 02/17/25 06:00 Pulse Ox 99 02/17/25 06:00 O2 Del Method Room Air 02/17/25 06:00 O2 Flow Rate 6 01/19/25 04:45 FiO2 24 01/20/25 12:24 02/16/25 02/17/25 02/17/25 22:59 06:59 14:59 Intake Total 0 / 0 Output Total 1200 / 3600 Balance -1200 / -3600 Physical Exam 2 Urinary Catheter Management: Perez: Cath Placed During This Visit: yes Urinary Catheter Date of Insertion: 01/19/25 Urinary Catheter Time of Insertion: 05:15 Data NPU 02/09/25 09:01 01/20/25 05:45 A&P Assessment and plan 1. Suicidal behavior with attempted self-injury: 2. Multiple drug overdose: 3. Toxic encephalopathy: 4. Suicidal ideation: 5. Major depressive disorder: 6. Attention-deficit hyperactivity disorder, unspecified type: 7. Alcohol abuse: Patient has this history of alcohol abuse. Ethanol level was 0 8. Borderline personality disorder: 9. Drug overdose: 10. Suicidal ideations: 11. PTSD (post-traumatic stress disorder): 12. Bipolar disorder with depression: 13. Suicide attempt: 14. Panic attacks: 15. History of OCD (obsessive compulsive disorder): Plan: 24-year-old white male extensive history of multiple inpatient hospitalizations with borderline personality traits, dysthymia, extremely poor coping skills and signficant attention seeking behavior who presents once again with suicidal ideation with overdose with intubation in ICU. Patient has poor impulse control and continued affective instability. 1. Encourage individual, group and milieu therapy. 2. Recommend sober living treatment at the highest level of care to which the patient is willing to commit. Possibility for rehab bed sooner rather than later so we will need to address whether he is safe and/or ready for this option. 3. Continue one-to-one that she has been on for some time. Patient switched back to every 15 minute checks. 4. Will simplify medication regimen, these medications have been unhelpful and patient requires more intense psychotherapy possibly in [facility]. Patient requires case management services, intense DBT services. 5. Continue Effexor XR 150mg daily, continue [place] 450mg bid, check CMP, lithium level in am, 6. Patient now has guardianship under Erm[employer] Leggett, awaiting placement, several referrals sent. Hopeful about options for him for placement with level 2 complete and patient willing to receive intense supports to prevent further near lethal attempts in home environment. 7. Hold Ritalin at this time. May consider use of long acting benzodiazepine at this time routinely to manage anxiety while awaiting placement. Increase propranolol 10mg tid routinely for anxiety with secondary benefit possibly for hypertension. PDMP PDMP Reviewed: Not Reviewed Involuntary Hold Information 2 Hold Status: Legal Status: Active Guardianship Date/Time Hold Expires: 96 Hour Hold: 96 Hour Involuntary Admission: Yes Other Hold: Hold End Date: 07/01/24 Attestations NPU 2 Medical Necessity Statement*: Inpatient hospitalization is medically necessary and the clinically appropriate intervention at this time. We will monitor medications and make changes as indicated. The patient's likely length of stay will be hopefully 6-8 days as we search for placement. Coding Level of Care Code Acute Code for Chg Fwd Diagnoses Suicidal behavior with attempted self-injury T14.91XA Multiple drug overdose T50.911A Toxic encephalopathy G92.9 Suicidal ideation R45.851 Major depressive disorder F32.9 Attention-deficit hyperactivity disorder, unspecified type F90.9 Alcohol abuse F10.10 Borderline personality disorder F60.3 Drug overdose T50.902A Encounter type: initial encounter Injury intent: intentional self-harm PTSD (post-traumatic stress disorder) F43.10 Bipolar disorder with depression F31.9 Suicide attempt T14.91XA Panic attacks F41.0 History of OCD (obsessive compulsive disorder) Z86.59
[2025-02-17 13:49] VITALS: BP 124/78; PULSE 88; RESP 16; TEMP 36.4; O2SAT 97
[2025-02-17 19:10] VITALS: BP 139/90; PULSE 105; RESP 20; TEMP 37; O2SAT 97
[2025-02-18 06:00] VITALS: BP 113/67; PULSE 79; RESP 16; TEMP 36.6; O2SAT 99
[2025-02-18] MEDS: venlafaxine ER (24HR) 75 mg Capsule 150 MG PO (08:00)
[2025-02-18 14:00] VITALS: BP 136/80; PULSE 85; RESP 18; TEMP 37; O2SAT 98
--- NOTE | 2025-02-18 14:22 | P.NPUPN_ITS ---
Subjective NPU 2 Subjective: 24-year-old male with borderline persona lity disorder, PTSD, ADHD, and depression admitted with chronic suicidality currently awaiting placement under guardianship. The patient was much more tearful today. He had endorsed feeling abandoned and stated that he was frustrated that he had yet to be placed. He had requested that he be considered to go to a penitentiary instead. He had reported that he was becoming frustrated and continued to struggle with managing his stress. He had reported having difficulties with falling asleep. He had continued to report feeling bored. He had not engaged in any significant self injury. He had endorsed passive suicidal thoughts and stated that it had been more frequent. He had reported having panic attacks yesterday but stated that he felt calmer when taking the Valium. He continued to struggle with organization and reported struggles with distractibility. He had described being hyperactive having been hospitalized numerous times under the age of 18 as well in various different states. Mental Status Exam 2 MSE Comments: This is a well-nourished, well-developed, white male, in hospital scrubs seen in room with adequate grooming and good eye contact. He was very anxious on interview. There was no evidence of any abnormal involuntary motor movements. He was cooperative with exam. Speech was diminished in rate, normal in rhythm and volume, and normal in production. Mood described as frustrated. His affect was constricted today. Thought process was linear and organized. Thought content: patient denies active homicidal ideation and endorsed suicidal ideation today. Patient denied any auditory or visual hallucinations. There was no evidence of delusional thinking. Attention span remained poor. Insight is poor. Judgment is limited. Impulse control is guarded. He is alert and oriented times three. Vitals/I&O/Wt Last Vital Signs Temp 97.9 F 02/18/25 06:00 Pulse 79 02/18/25 06:00 Resp 16 02/18/25 06:00 BP 113/67 02/18/25 06:00 Pulse Ox 99 02/18/25 06:00 O2 Del Method Room Air 02/18/25 06:00 O2 Flow Rate 6 01/19/25 04:45 FiO2 24 01/20/25 12:24 Physical Exam 2 Urinary Catheter Management: Perez: Cath Placed During This Visit: yes Urinary Catheter Date of Insertion: 01/19/25 Urinary Catheter Time of Insertion: 05:15 Data NPU 02/09/25 09:01 01/20/25 05:45 A&P Assessment and plan 1. Suicidal behavior with attempted self-injury: 2. Multiple drug overdose: 3. Toxic encephalopathy: 4. Suicidal ideation: 5. Major depressive disorder: 6. Attention-deficit hyperactivity disorder, unspecified type: 7. Alcohol abuse: Patient has this history of alcohol abuse. Ethanol level was 0 8. Borderline personality disorder: 9. Drug overdose: 10. Suicidal ideations: 11. PTSD (post-traumatic stress disorder): 12. Bipolar disorder with depression: 13. Suicide attempt: 14. Panic attacks: 15. History of OCD (obsessive compulsive disorder): Plan: 24-year-old white male extensive history of multiple inpatient hospitalizations with borderline personality traits, dysthymia, extremely poor coping skills and signficant attention seeking behavior who presents once again with suicidal ideation with overdose with intubation in ICU. Patient has poor impulse control and continued affective instability. 1. Encourage individual, group and milieu therapy. 2. Recommend sober living treatment at the highest level of care to which the patient is willing to commit. Possibility for rehab bed sooner rather than later so we will need to address whether he is safe and/or ready for this option. 3. Continue one-to-one that she has been on for some time. Patient switched back to every 15 minute checks. 4. Will simplify medication regimen, these medications have been unhelpful and patient requires more intense psychotherapy possibly in skilled nursing facility. Patient requires case management services, intense DBT services. 5. Continue Effexor XR 150mg daily, continue [place] 450mg bid, check CMP, lithium level in am, 6. Patient now has guardianship under [employer] Leggett, awaiting placement, several referrals sent. Hopeful about options for him for placement with level 2 complete and patient willing to receive intense supports to prevent further near lethal attempts in home environment. 7. Continue propranolol with increase to 10mg tid, continue valium 2.5mg bid. PDMP PDMP Reviewed: Not Reviewed Involuntary Hold Information 2 Hold Status: Legal Status: Active Guardianship Date/Time Hold Expires: 96 Hour Hold: 96 Hour Involuntary Admission: Yes Other Hold: Hold End Date: 07/01/24 Attestations NPU 2 Medical Necessity Statement*: Inpatient hospitalization is medically necessary and the clinically appropriate intervention at this time. We will monitor medications and make changes as indicated. The patient's likely length of stay will be hopefully 5-7 days as we search for placement. Coding Level of Care Code Acute Code for Chg Fwd Diagnoses Suicidal behavior with attempted self-injury T14.91XA Multiple drug overdose T50.911A Toxic encephalopathy G92.9 Suicidal ideation R45.851 Major depressive disorder F32.9 Attention-deficit hyperactivity disorder, unspecified type F90.9 Alcohol abuse F10.10 Borderline personality disorder F60.3 Drug overdose T50.902A Encounter type: initial encounter Injury intent: intentional self-harm PTSD (post-traumatic stress disorder) F43.10 Bipolar disorder with depression F31.9 Suicide attempt T14.91XA Panic attacks F41.0 History of OCD (obsessive compulsive disorder) Z86.59
[2025-02-18 19:07] VITALS: BP 136/87; PULSE 80; RESP 18; TEMP 36.7; O2SAT 98
[2025-02-19 06:00] VITALS: BP 99/62; PULSE 62; RESP 17; O2SAT 99
[2025-02-19] MEDS: venlafaxine ER (24HR) 75 mg Capsule 150 MG PO (08:11)
--- NOTE | 2025-02-19 13:50 | PC.NURSE ---
Pt was approved to shave with supervision, pt shaved with no problems.
[2025-02-19 14:00] VITALS: BP 148/84; PULSE 95; RESP 18; TEMP 36.7; O2SAT 98
--- NOTE | 2025-02-19 14:58 | W.PM.NPUPNS ---
Subjective NPU Subjective: 24-year-old male with borderline personality disorder, PTSD, ADHD, and depression admitted with chronic suicidality currently awaiting placement under guardianship. The patient had continued to report feeling frustrated and stated that he felt more anxious. He continued to engage in appropriate self-care. He had continued to report mood fluctuations and reported having some difficulty falling asleep and often not feeling rested when awakening. He denied having any suicidal thoughts currently. There had been no evidence of any self-injurious behavior. Patient had reported frequent boredom. He continued to attend therapy and continued to show evidence of poor frustration tolerance. He had reported that he was optimistic about other potential options for placement. Mental Status Exam MSE Comments: This is a well-nourished, well-developed, white male, in hospital scrubs seen in room with adequate grooming and good eye contact. There was evidence of mild psychomotor retardation. There was no evidence of any abnormal involuntary motor movements. He was cooperative with exam. Speech was diminished in rate, normal in rhythm and volume, and normal in production. Mood described as allright. His affect was anxious today. Thought process was linear and organized. Thought content: patient denies active homicidal ideation or suicidal ideation. Patient denied any auditory or visual hallucinations. There was no evidence of delusional thinking. Attention span remained poor. Insight is poor. Judgment is limited. Impulse control is guarded. He is alert and oriented to person, place and time. Vitals/I&O/Wt Last Vital Signs Temp 98.1 F 02/18/25 19:07 Pulse 62 02/19/25 06:00 Resp 17 02/19/25 06:00 BP 99/62 02/19/25 06:00 Pulse Ox 99 02/19/25 06:00 O2 Del Method Room Air 02/19/25 06:00 O2 Flow Rate 6 01/19/25 04:45 FiO2 24 01/20/25 12:24 02/18/25 02/19/25 02/19/25 22:59 06:59 14:59 Intake Total 0 / 0 Output Total 1200 / 1200 Balance -1200 / -1200 Physical Exam Urinary Catheter Management: Perez: Cath Placed During This Visit: yes Urinary Catheter Date of Insertion: 01/19/25 Urinary Catheter Time of Insertion: 05:15 Data NPU 02/09/25 09:01 01/20/25 05:45 A&P Assessment and plan 1. Suicidal behavior with attempted self-injury: 2. Multiple drug overdose: 3. Toxic encephalopathy: 4. Suicidal ideation: 5. Major depressive disorder: 6. Attention-deficit hyperactivity disorder, unspecified type: 7. Alcohol abuse: Patient has this history of alcohol abuse. Ethanol level was 0 8. Borderline personality disorder: 9. Drug overdose: 10. Suicidal ideations: 11. PTSD (post-traumatic stress disorder): 12. Bipolar disorder with depression: 13. Suicide attempt: 14. Panic attacks: 15. History of OCD (obsessive compulsive disorder): Plan: 24-year-old white male extensive history of multiple inpatient hospitalizations with borderline personality traits, dysthymia, extremely poor coping skills and signficant attention seeking behavior who presents once again with suicidal ideation with overdose with intubation in ICU. Patient has poor impulse control and continued affective instability. 1. Encourage individual, group and milieu therapy. 2. Recommend sober living treatment at the highest level of care to which the patient is willing to commit. Possibility for rehab bed sooner rather than later so we will need to address whether he is safe and/or ready for this option. 3. Continue one-to-one that she has been on for some time. Patient switched back to every 15 minute checks. 4. Will simplify medication regimen, these medications have been unhelpful and patient requires more intense psychotherapy possibly in technician terminal and repeater facility. Patient requires case management services, intense DBT services. 5. Continue Effexor XR 150mg daily, continue [place] 450mg bid, 6. Patient now has guardianship under [facility], awaiting placement, several referrals sent. Hopeful about options for him for placement with level 2 complete and patient willing to receive intense supports to prevent further near lethal attempts in home environment. 7. Continue propranolol at 10mg tid, increase valium 2.5mg am, 5mg at night. PDMP PDMP Reviewed: Not Reviewed Involuntary Hold Information Hold Status: Legal Status: Active Guardianship Date/Time Hold Expires: 02/18/2025 96 Hour Hold: 96 Hour Involuntary Admission: Yes Other Hold: Hold End Date: 07/01/24 Attestations NPU Medical Necessity Statement*: Inpatient hospitalization is medically necessary and the clinically appropriate intervention at this time. We will monitor medications and make changes as indicated. The patient's likely length of stay will be hopefully 5-7 days as we search for placement. Coding Level of Care Code Acute Code for Chg Fwd Diagnoses Suicidal behavior with attempted self-injury T14.91XA Multiple drug overdose T50.911A Toxic encephalopathy G92.9 Suicidal ideation R45.851 Major depressive disorder F32.9 Attention-deficit hyperactivity disorder, unspecified type F90.9 Alcohol abuse F10.10 Borderline personality disorder F60.3 Drug overdose T50.902A Encounter type: initial encounter Injury intent: intentional self-harm PTSD (post-traumatic stress disorder) F43.10 Bipolar disorder with depression F31.9 Suicide attempt T14.91XA Panic attacks F41.0 History of OCD (obsessive compulsive disorder) Z86.59
--- NOTE | 2025-02-19 16:20 | PC.NURSE ---
Pt began to scream and yell while walking up and down the halls. Pt screaming about being on the unit for too long. Pt has seen other peers discharge off of the unit today and just had a mental breakdown. Nursing staff and Social workers spoke with the pt and tried calming the pt down. Pt was administered 5mg Zyprexa Zydis Subling. Pt is now in his room sitting up on his bed.
[2025-02-19 19:22] VITALS: BP 119/74; PULSE 75; RESP 17; TEMP 36.7; O2SAT 99
[2025-02-20 06:00] VITALS: BP 122/78; PULSE 86; RESP 17; TEMP 36.4; O2SAT 99
[2025-02-20] MEDS: venlafaxine ER (24HR) 75 mg Capsule 150 MG PO (08:06)
--- NOTE | 2025-02-20 11:32 | W.PM.NPUPNS ---
Subjective NPU Subjective: 24-year-old male with borderline personality disorder, PTSD, ADHD, and depression admitted with chronic suicidality currently awaiting placement under guardianship. The patient was redirectable on the unit. He had expressed frustration for the duration of time being here. He had continued to attribute his lack of being placed in a facility as meaning to him that he was unwanted. He continued to engage in significant negative thinking. He had reported adequate sleep and reported that he was trying to distract himself from the fact that he had been here for a month. He reported no side effects from his medication regimen. He reported no sleep continuity disruption. He had reported feeling more rested this morning. He had reported fleeting suicidal thoughts. The patient endorsed some feelings of hopelessness chronically. He had reported poor attention span and continued problems with staying on task. Mental Status Exam MSE Comments: This is a well-nourished, well-developed, white male, in hospital scrubs seen in room with adequate grooming and good eye contact. There was evidence of mild psychomotor retardation. There was no evidence of any abnormal involuntary motor movements. He was cooperative with exam. Speech was diminished in rate, normal in rhythm and volume, and normal in production. Mood described as okay. His affect was restricted in range but less anxious. Thought process was linear and organized. Thought content: patient denies active homicidal ideation or suicidal ideation. Patient denied any auditory or visual hallucinations. There was no evidence of delusional thinking. Attention span remained poor. Insight is poor. Judgment is limited. Impulse control is guarded. He is alert and oriented to person, place and time. Vitals/I&O/Wt Last Vital Signs Temp 97.6 F 02/20/25 06:00 Pulse 86 02/20/25 06:00 Resp 17 02/20/25 06:00 BP 122/78 02/20/25 06:00 Pulse Ox 99 02/20/25 06:00 O2 Del Method Room Air 02/20/25 06:00 O2 Flow Rate 6 01/19/25 04:45 FiO2 24 01/20/25 12:24 Physical Exam Urinary Catheter Management: Perez: Cath Placed During This Visit: yes Urinary Catheter Date of Insertion: 01/19/25 Urinary Catheter Time of Insertion: 05:15 Data NPU 02/09/25 09:01 01/20/25 05:45 A&P Assessment and plan 1. Suicidal behavior with attempted self-injury: 2. Multiple drug overdose: 3. Toxic encephalopathy: 4. Suicidal ideation: 5. Major depressive disorder: 6. Attention-deficit hyperactivity disorder, unspecified type: 7. Alcohol abuse: Patient has this history of alcohol abuse. Ethanol level was 0 8. Borderline personality disorder: 9. Drug overdose: 10. Suicidal ideations: 11. PTSD (post-traumatic stress disorder): 12. Bipolar disorder with depression: 13. Suicide attempt: 14. Panic attacks: 15. History of OCD (obsessive compulsive disorder): Plan: 24-year-old white male extensive history of multiple inpatient hospitalizations with borderline personality traits, dysthymia, extremely poor coping skills and signficant attention seeking behavior who presents once again with suicidal ideation with overdose with intubation in ICU. Patient has poor impulse control and continued affective instability. 1. Encourage individual, group and milieu therapy. 2. Recommend sober living treatment at the highest level of care to which the patient is willing to commit. Possibility for rehab bed sooner rather than later so we will need to address whether he is safe and/or ready for this option. 3. Patient remaining on 1-1. 4. Will simplify medication regimen, these medications have been unhelpful and patient requires more intense psychotherapy possibly in microfilm operator facility. Patient requires case management services, intense DBT services. 5. Continue Effexor XR 150mg daily, continue [place] 450mg bid, 6. Patient under guardianship. He continues to remain steady here. The patient lacks ability to manage emotions and requires intense services such as DBT to help with managing poor impulse control. In an uncontrolled environment, patient would frequently and impulsively overdose on medications. 7. Continue propranolol at 10mg tid, increase valium 2.5mg am, 2.5mg at 3pm 5mg at night. Patient appears less irritable in the absence of ritalin. PDMP PDMP Reviewed: Not Reviewed Involuntary Hold Information Hold Status: Legal Status: Active Guardianship Date/Time Hold Expires: 02/18/2025 96 Hour Hold: 96 Hour Involuntary Admission: Yes Other Hold: Hold End Date: 07/01/24 Attestations NPU Medical Necessity Statement*: Inpatient hospitalization is medically necessary and the clinically appropriate intervention at this time. We will monitor medications and make changes as indicated. The patient's likely length of stay will be hopefully 7-9 days as we search for placement. Coding Level of Care Code Acute Code for Chg Fwd Diagnoses Suicidal behavior with attempted self-injury T14.91XA Multiple drug overdose T50.911A Toxic encephalopathy G92.9 Suicidal ideation R45.851 Major depressive disorder F32.9 Attention-deficit hyperactivity disorder, unspecified type F90.9 Alcohol abuse F10.10 Borderline personality disorder F60.3 Drug overdose T50.902A Encounter type: initial encounter Injury intent: intentional self-harm PTSD (post-traumatic stress disorder) F43.10 Bipolar disorder with depression F31.9 Suicide attempt T14.91XA Panic attacks F41.0 History of OCD (obsessive compulsive disorder) Z86.59
[2025-02-20 12:55] VITALS: BP 123/77; PULSE 115; RESP 16; TEMP 37.1; O2SAT 99
--- NOTE | 2025-02-20 18:42 | PC.NURSE ---
02/20/25 Frequent outbursts/ upsets throughout the day, staff encourages use of coping skills et attempts to kids activities coach, however he resists et states I don't need to use coping stuff . Patient called [facility] from the patient phone et they came to see him here at [facility]PU. This did not cease behaviors, however et @ 1835 he is noted to be escalated again, tearful et attention seeking, yelling. Behaviors cycling frequently, staff assist unsuccessful.
[2025-02-20 19:51] VITALS: BP 128/79; PULSE 85; RESP 19; TEMP 37.1; O2SAT 97
[2025-02-20] MEDS: phenyleph-mineral oil-petrolat Oint 28 gm 1 APPLIC TOPICAL (20:13)
--- NOTE | 2025-02-21 06:35 | PC.NURSE ---
vs not completed per charge nurse resp 16
[2025-02-21] MEDS: venlafaxine ER (24HR) 75 mg Capsule 150 MG PO (07:59)
[2025-02-21 14:00] VITALS: BP 131/73; PULSE 90; RESP 16; TEMP 36.5; O2SAT 98
--- NOTE | 2025-02-21 18:33 | W.PM.NPUPNS ---
Subjective NPU Subjective: Patient presented today reporting that things are going all right. He is hopeful that his interview on Monday goes well and we discussed willingness to get him out of here soon as possible if they agree to accept him. He continues to function without outburst recently but reports that it is frustrating sitting here in not having what seems to be a reasonable option. He denied any side effects of medications. Mental Status Exam MSE Comments: This is a well-nourished, well-developed, white male, in hospital scrubs seen in room with adequate grooming and good eye contact. There was evidence of mild psychomotor retardation There was no evidence of any abnormal involuntary motor movements. He was cooperative with exam. Speech was diminished in rate, normal in rhythm and volume, and normal in production. Mood described as okay. His affect was restricted in range but less anxious.Thought process was linear and organized. Thought content: patient denies active homicidal ideation or suicidal ideation. Patient denied any auditory or visual hallucinations.There was no evidence of delusional thinking. Attention span remained poor. Insight is poor. Judgment is limited. Impulse control is guarded. The is alert and oriented to person, place and time. Vitals/I&O/Wt Last Vital Signs Temp 97.7 F 02/21/25 14:00 Pulse 90 02/21/25 14:00 Resp 16 02/21/25 14:00 BP 131/73 02/21/25 14:00 Pulse Ox 98 02/21/25 14:00 O2 Del Method Room Air 02/21/25 14:00 O2 Flow Rate 6 01/19/25 04:45 FiO2 24 01/20/25 12:24 Physical Exam Urinary Catheter Management: Perez: Cath Placed During This Visit: yes Urinary Catheter Date of Insertion: 01/19/25 Urinary Catheter Time of Insertion: 05:15 Data NPU 02/09/25 09:01 01/20/25 05:45 A&P Assessment and plan 1. Suicidal behavior with attempted self-injury: 2. Multiple drug overdose: 3. Toxic encephalopathy: 4. Suicidal ideation: 5. Major depressive disorder: 6. Attention-deficit hyperactivity disorder, unspecified type: 7. Alcohol abuse: Patient has this history of alcohol abuse. Ethanol level was 0 8. Borderline personality disorder: 9. Drug overdose: 10. Suicidal ideations: 11. PTSD (post-traumatic stress disorder): 12. Bipolar disorder with depression: 13. Suicide attempt: 14. Panic attacks: 15. History of OCD (obsessive compulsive disorder): Plan: 24-year-old white male extensive history of multiple inpatient hospitalizations with borderline personality traits, dysthymia, extremely poor coping skills and signficant attention seeking behavior who presents once again with suicidal ideation with overdose with intubation in ICU. Patient has poor impulse control and continued affective instability. 1. Encourage individual, group and milieu therapy. 2. Recommend sober living treatment at the highest level of care to which the patient is willing to commit. Possibility for rehab bed sooner rather than later so we will need to address whether he is safe and/or ready for this option. 3. Patient remaining on 1-1. 4. Will simplify medication regimen, these medications have been unhelpful and patient requires more intense psychotherapy possibly in terminal computer operator facility. Patient requires case management services, intense DBT services. 5. Continue Effexor XR 150mg daily, continue [place] 450mg bid, 6. Patient under guardianship. He continues to remain steady here. The patient lacks ability to manage emotions and requires intense services such as DBT to help with managing poor impulse control. In an uncontrolled environment, patient would frequently and impulsively overdose on medications. 7. Continue propranolol at 10mg tid, increase valium 2.5mg am, 2.5mg at 3pm 5mg at night. Patient appears less irritable in the absence of ritalin. 8. Patient has interview with [facility] on Monday. PDMP PDMP Reviewed: Not Reviewed Involuntary Hold Information Hold Status: Legal Status: Active Guardianship Date/Time Hold Expires: 02/18/2025 96 Hour Hold: 96 Hour Involuntary Admission: Yes Other Hold: Hold End Date: 07/01/24 Attestations NPU Medical Necessity Statement*: Inpatient hospitalization is medically necessary and the clinically appropriate intervention at this time. We will monitor medications and make changes as indicated. The patient's likely length of stay will be hopefully 7-9 days as we search for placement. Coding Level of Care Code Acute Code for Chg Fwd Diagnoses Suicidal behavior with attempted self-injury T14.91XA Multiple drug overdose T50.911A Toxic encephalopathy G92.9 Suicidal ideation R45.851 Major depressive disorder F32.9 Attention-deficit hyperactivity disorder, unspecified type F90.9 Alcohol abuse F10.10 Borderline personality disorder F60.3 Drug overdose T50.902A Encounter type: initial encounter Injury intent: intentional self-harm PTSD (post-traumatic stress disorder) F43.10 Bipolar disorder with depression F31.9 Suicide attempt T14.91XA Panic attacks F41.0 History of OCD (obsessive compulsive disorder) Z86.59
[2025-02-21 20:08] VITALS: BP 143/83; PULSE 88; RESP 18; TEMP 37.1; O2SAT 98
[2025-02-22 06:00] VITALS: BP 142/77; PULSE 96; RESP 18; TEMP 36.6; O2SAT 98
[2025-02-22] MEDS: venlafaxine ER (24HR) 75 mg Capsule 150 MG PO (08:14)
--- NOTE | 2025-02-22 12:27 | P.NPUPN_ITS ---
Subjective NPU 2 Subjective: Patient presented today reporting that things were going fine. He was very open to the idea of interviewing with [facility] [employer] on Monday. He is very hopeful that they will consider his improvements in how he has not been a problem for some time. He reports a desire to get out of the hospital and move his situation forward. We discussed the importance of him being open with him in the interview about his desires and commitment to being a more functional individual. He denied any side effects to his medications. Mental Status Exam 2 MSE Comments: This is a well-nourished, well-developed, white male, in hospital scrubs seen in room with adequate grooming and good eye contact. There was evidence of mild psychomotor retardation There was no evidence of any abnormal involuntary motor movements. He was cooperative with exam. Speech was diminished in rate, normal in rhythm and volume, and normal in production. Mood described as okay. His affect was restricted in range but less anxious.Thought process was linear and organized. Thought content: patient denies active homicidal ideation or suicidal ideation. Patient denied any auditory or visual hallucinations.There was no evidence of delusional thinking. Attention span remained poor. Insight is poor. Judgment is limited. Impulse control is guarded. The is alert and oriented to person, place and time. Vitals/I&O/Wt Last Vital Signs Temp 97.8 F 02/22/25 06:00 Pulse 96 02/22/25 06:00 Resp 18 02/22/25 06:00 BP 142/77 02/22/25 06:00 Pulse Ox 98 02/22/25 06:00 O2 Del Method Room Air 02/22/25 06:00 O2 Flow Rate 6 01/19/25 04:45 FiO2 24 01/20/25 12:24 Physical Exam 2 Urinary Catheter Management: Perez: Cath Placed During This Visit: yes Urinary Catheter Date of Insertion: 01/19/25 Urinary Catheter Time of Insertion: 05:15 Data NPU 02/09/25 09:01 01/20/25 05:45 A&P Assessment and plan 1. Suicidal behavior with attempted self-injury: 2. Multiple drug overdose: 3. Toxic encephalopathy: 4. Suicidal ideation: 5. Major depressive disorder: 6. Attention-deficit hyperactivity disorder, unspecified type: 7. Alcohol abuse: Patient has this history of alcohol abuse. Ethanol level was 0 8. Borderline personality disorder: 9. Drug overdose: 10. Suicidal ideations: 11. PTSD (post-traumatic stress disorder): 12. Bipolar disorder with depression: 13. Suicide attempt: 14. Panic attacks: 15. History of OCD (obsessive compulsive disorder): Plan: 24-year-old white male extensive history of multiple inpatient hospitalizations with borderline personality traits, dysthymia, extremely poor coping skills and signficant attention seeking behavior who presents once again with suicidal ideation with overdose with intubation in ICU. Patient has poor impulse control and continued affective instability. 1. Encourage individual, group and milieu therapy. 2. Recommend sober living treatment at the highest level of care to which the patient is willing to commit. Possibility for rehab bed sooner rather than later so we will need to address whether he is safe and/or ready for this option. 3. Patient remaining on 1-1. 4. Will simplify medication regimen, these medications have been unhelpful and patient requires more intense psychotherapy possibly in [facility]. Patient requires case management services, intense DBT services. 5. Continue Effexor XR 150mg daily, continue [place] 450mg bid, 6. Patient under guardianship. He continues to remain steady here. The patient lacks ability to manage emotions and requires intense services such as DBT to help with managing poor impulse control. In an uncontrolled environment, patient would frequently and impulsively overdose on medications. 7. Continue propranolol at 10mg tid, increase valium 2.5mg am, 2.5mg at 3pm 5mg at night. Patient appears less irritable in the absence of ritalin. 8. Patient has interview with [facility] on Monday. PDMP PDMP Reviewed: Not Reviewed Involuntary Hold Information 2 Hold Status: Legal Status: Active Guardianship Date/Time Hold Expires: 96 Hour Hold: 96 Hour Involuntary Admission: Yes Other Hold: Hold End Date: 07/01/24 Attestations NPU 2 Medical Necessity Statement*: Inpatient hospitalization is medically necessary and the clinically appropriate intervention at this time. We will monitor medications and make changes as indicated. The patient's likely length of stay will be hopefully 7-9 days as we search for placement. Coding Level of Care Code Acute Code for Chg Fwd Diagnoses Suicidal behavior with attempted self-injury T14.91XA Multiple drug overdose T50.911A Toxic encephalopathy G92.9 Suicidal ideation R45.851 Major depressive disorder F32.9 Attention-deficit hyperactivity disorder, unspecified type F90.9 Alcohol abuse F10.10 Borderline personality disorder F60.3 Drug overdose T50.902A Encounter type: initial encounter Injury intent: intentional self-harm PTSD (post-traumatic stress disorder) F43.10 Bipolar disorder with depression F31.9 Suicide attempt T14.91XA Panic attacks F41.0 History of OCD (obsessive compulsive disorder) Z86.59
[2025-02-22 14:00] VITALS: BP 143/94; PULSE 77; RESP 16; TEMP 37; O2SAT 98
[2025-02-22 20:17] VITALS: BP 152/99; PULSE 112; RESP 19; TEMP 37; O2SAT 99
[2025-02-23 06:00] VITALS: BP 142/89; PULSE 91; RESP 18; TEMP 36.6; O2SAT 98
[2025-02-23] MEDS: venlafaxine ER (24HR) 75 mg Capsule 150 MG PO (09:57)
[2025-02-23 14:00] VITALS: BP 142/84; PULSE 92; RESP 16; TEMP 36.9; O2SAT 98
--- NOTE | 2025-02-23 16:22 | P.NPUPN_ITS ---
Subjective NPU 2 Subjective: Patient presented today reporting things are going okay. He identified he was feeling ready for the interview tomorrow and is hopeful that he is able to answer questions appropriately and be excepted by the program. He is reporting of feeling positive and optimistic and hopeful as he really would like to get out of the hospital at this point. He denies any side effects of medication Mental Status Exam 2 MSE Comments: This is a well-nourished, well-developed, white male, in hospital scrubs seen in room with adequate grooming and good eye contact. There was evidence of mild psychomotor retardation There was no evidence of any abnormal involuntary motor movements. He was cooperative with exam. Speech was diminished in rate, normal in rhythm and volume, and normal in production. Mood described as okay. His affect was restricted in range but less anxious.Thought process was linear and organized. Thought content: patient denies active homicidal ideation or suicidal ideation. Patient denied any auditory or visual hallucinations.There was no evidence of delusional thinking. Attention span remained poor. Insight is poor. Judgment is limited. Impulse control is guarded. The is alert and oriented to person, place and time. Vitals/I&O/Wt Last Vital Signs Temp 98.4 F 02/23/25 14:00 Pulse 92 02/23/25 14:00 Resp 16 02/23/25 14:00 BP 142/84 02/23/25 14:00 Pulse Ox 98 02/23/25 14:00 O2 Del Method Room Air 02/23/25 14:00 O2 Flow Rate 6 01/19/25 04:45 FiO2 24 01/20/25 12:24 Physical Exam 2 Urinary Catheter Management: Perez: Cath Placed During This Visit: yes Urinary Catheter Date of Insertion: 01/19/25 Urinary Catheter Time of Insertion: 05:15 Data NPU 02/09/25 09:01 01/20/25 05:45 A&P Assessment and plan 1. Suicidal behavior with attempted self-injury: 2. Multiple drug overdose: 3. Toxic encephalopathy: 4. Suicidal ideation: 5. Major depressive disorder: 6. Attention-deficit hyperactivity disorder, unspecified type: 7. Alcohol abuse: Patient has this history of alcohol abuse. Ethanol level was 0 8. Borderline personality disorder: 9. Drug overdose: 10. Suicidal ideations: 11. PTSD (post-traumatic stress disorder): 12. Bipolar disorder with depression: 13. Suicide attempt: 14. Panic attacks: 15. History of OCD (obsessive compulsive disorder): Plan: 24-year-old white male extensive history of multiple inpatient hospitalizations with borderline personality traits, dysthymia, extremely poor coping skills and signficant attention seeking behavior who presents once again with suicidal ideation with overdose with intubation in ICU. Patient has poor impulse control and continued affective instability. 1. Encourage individual, group and milieu therapy. 2. Recommend sober living treatment at the highest level of care to which the patient is willing to commit. Possibility for rehab bed sooner rather than later so we will need to address whether he is safe and/or ready for this option. 3. Patient remaining on 1-1. 4. Will simplify medication regimen, these medications have been unhelpful and patient requires more intense psychotherapy possibly in [place] [facility]. Patient requires case management services, intense DBT services. 5. Continue Effexor XR 150mg daily, continue [place] 450mg bid, 6. Patient under guardianship. He continues to remain steady here. The patient lacks ability to manage emotions and requires intense services such as DBT to help with managing poor impulse control. In an uncontrolled environment, patient would frequently and impulsively overdose on medications. 7. Continue propranolol at 10mg tid, increase valium 2.5mg am, 2.5mg at 3pm 5mg at night. Patient appears less irritable in the absence of ritalin. 8. Patient has [facility] tomorrow 02/24/2025. PDMP PDMP Reviewed: Not Reviewed Involuntary Hold Information 2 Hold Status: Legal Status: Active Guardianship Date/Time Hold Expires: 96 Hour Hold: 96 Hour Involuntary Admission: Yes Other Hold: Hold End Date: 07/01/24 Attestations NPU 2 Medical Necessity Statement*: Inpatient hospitalization is medically necessary and the clinically appropriate intervention at this time. We will monitor medications and make changes as indicated. The patient's likely length of stay will be hopefully 7-9 days as we search for placement. Coding Level of Care Code Acute Code for [facility] Fwd Diagnoses Suicidal behavior with attempted self-injury T14.91XA Multiple drug overdose T50.911A Toxic encephalopathy G92.9 Suicidal ideation R45.851 Major depressive disorder F32.9 Attention-deficit hyperactivity disorder, unspecified type F90.9 Alcohol abuse F10.10 Borderline personality disorder F60.3 Drug overdose T50.902A Encounter type: initial encounter Injury intent: intentional self-harm PTSD (post-traumatic stress disorder) F43.10 Bipolar disorder with depression F31.9 Suicide attempt T14.91XA Panic attacks F41.0 History of OCD (obsessive compulsive disorder) Z86.59
[2025-02-23 19:54] VITALS: BP 131/90; PULSE 87; RESP 19; TEMP 36.9; O2SAT 96
[2025-02-24 06:00] VITALS: BP 129/73; PULSE 75; RESP 18; TEMP 36.4; O2SAT 97
[2025-02-24] MEDS: venlafaxine ER (24HR) 75 mg Capsule 150 MG PO (08:45)
[2025-02-24 13:48] VITALS: BP 132/88; PULSE 105; RESP 16; TEMP 37.1; O2SAT 96
--- NOTE | 2025-02-24 17:01 | P.NPUPN_ITS ---
Subjective NPU 2 Subjective: Patient presented today reporting that things went well and his interview. Will now just have to wait further answer. He denied any other concerns. He reports that his medications are working fine and denied any side effects. Mental Status Exam 2 MSE Comments: This is a well-nourished, well-developed, white male, in hospital scrubs seen in room with adequate grooming and good eye contact. There was evidence of mild psychomotor retardation There was no evidence of any abnormal involuntary motor movements. He was cooperative with exam. Speech was diminished in rate, normal in rhythm and volume, and normal in production. Mood described as okay. His affect was restricted in range but less anxious.Thought process was linear and organized. Thought content: patient denies active homicidal ideation or suicidal ideation. Patient denied any auditory or visual hallucinations.There was no evidence of delusional thinking. Attention span remained poor. Insight is poor. Judgment is limited. Impulse control is guarded. The is alert and oriented to person, place and time. Vitals/I&O/Wt Last Vital Signs Temp 98.7 F 02/24/25 13:48 Pulse 105 H 02/24/25 13:48 Resp 16 02/24/25 13:48 BP 132/88 02/24/25 13:48 Pulse Ox 96 02/24/25 13:48 O2 Del Method Room Air 02/24/25 13:48 O2 Flow Rate 6 01/19/25 04:45 FiO2 24 01/20/25 12:24 Physical Exam 2 Urinary Catheter Management: Perez: Cath Placed During This Visit: yes Urinary Catheter Date of Insertion: 01/19/25 Urinary Catheter Time of Insertion: 05:15 Data NPU 02/09/25 09:01 01/20/25 05:45 A&P Assessment and plan 1. Suicidal behavior with attempted self-injury: 2. Multiple drug overdose: 3. Toxic encephalopathy: 4. Suicidal ideation: 5. Major depressive disorder: 6. Attention-deficit hyperactivity disorder, unspecified type: 7. Alcohol abuse: Patient has this history of alcohol abuse. Ethanol level was 0 8. Borderline personality disorder: 9. Drug overdose: 10. Suicidal ideations: 11. PTSD (post-traumatic stress disorder): 12. Bipolar disorder with depression: 13. Suicide attempt: 14. Panic attacks: 15. History of OCD (obsessive compulsive disorder): Plan: 24-year-old white male extensive history of multiple inpatient hospitalizations with borderline personality traits, dysthymia, extremely poor coping skills and signficant attention seeking behavior who presents once again with suicidal ideation with overdose with intubation in ICU. Patient has poor impulse control and continued affective instability. 1. Encourage individual, group and milieu therapy. 2. Recommend sober living treatment at the highest level of care to which the patient is willing to commit. Possibility for rehab bed sooner rather than later so we will need to address whether he is safe and/or ready for this option. 3. Patient remaining on 1-1. 4. Will simplify medication regimen, these medications have been unhelpful and patient requires more intense psychotherapy possibly in [place] [facility]. Patient requires case management services, intense DBT services. 5. Continue Effexor XR 150mg daily, continue [place] 450mg bid, 6. Patient under guardianship. He continues to remain steady here. The patient lacks ability to manage emotions and requires intense services such as DBT to help with managing poor impulse control. In an uncontrolled environment, patient would frequently and impulsively overdose on medications. 7. Continue propranolol at 10mg tid, increase valium 2.5mg am, 2.5mg at 3pm 5mg at night. Patient appears less irritable in the absence of ritalin. 8. Patient has [facility] with [facility] today 02/24/2025. PDMP PDMP Reviewed: Not Reviewed Involuntary Hold Information 2 Hold Status: Legal Status: Active Guardianship Date/Time Hold Expires: 96 Hour Hold: 96 Hour Involuntary Admission: Yes Other Hold: Hold End Date: 07/01/24 Attestations NPU 2 Medical Necessity Statement*: Inpatient hospitalization is medically necessary and the clinically appropriate intervention at this time. We will monitor medications and make changes as indicated. The patient's likely length of stay will be hopefully 6-8 days as we search for placement. Coding Level of Care Code Acute Code for [facility] Fwd Diagnoses Suicidal behavior with attempted self-injury T14.91XA Multiple drug overdose T50.911A Toxic encephalopathy G92.9 Suicidal ideation R45.851 Major depressive disorder F32.9 Attention-deficit hyperactivity disorder, unspecified type F90.9 Alcohol abuse F10.10 Borderline personality disorder F60.3 Drug overdose T50.902A Encounter type: initial encounter Injury intent: intentional self-harm PTSD (post-traumatic stress disorder) F43.10 Bipolar disorder with depression F31.9 Suicide attempt T14.91XA Panic attacks F41.0 History of OCD (obsessive compulsive disorder) Z86.59
[2025-02-24 19:22] VITALS: BP 127/80; PULSE 99; RESP 18; TEMP 37.1; O2SAT 96
--- NOTE | 2025-02-25 04:52 | PC.NURSE ---
BEHAVIOR PATIENT, AT THE BEGINNING OF THIS SHIFT, WAS VERY TEARFUL. PATIENT STATED THAT HE HAD HAD AN INTERVIEW WITH A FACILITY, BUT HAS NOT HEARD ANY RESULT OF YET. PATIENT STATED THAT HE THOUGHT THE INTERVIEW WENT REAL WELL. PATIENT STATED THAT HE HAS BEEN HERE ON THE UNIT FOR OVER A MONTH, AND THAT HE IS NO LONGER WANTING TO ACT OUT OR BE A PROBLEM PATIENT. STATES HE HAS GROWN UP ENOUGH NOW TO BE ABLE TO TAKE CARE OF HIS SELF. PATIENT STATED THAT HE HAS NOT YET SEEN HIS GUARDIAN CHHAYA SHORE. PATIENT WAS UPSET THAT HIS LIFE HAS BEEN HANDED TO SOMEONE WHO'S CASE LOAD IS SO FULL, THAT HE HAS NO TIME TO EVEN MEET HIS CHARGES , LET ALONE KNOW WHAT IS BEST FOR THEM. PATIENT STATED THAT HE IS TIRED OF ASKING FOR A CUP OF WATER, ONLY TO BE HUFFED AT LIKE HE IS INTERRUPTING THEIR PROGRAM THEY ARE WATCHING ON THEIR PHONE. PATIENT THANKED THIS NURSE FOR ALLOWING HIM TO VENT AND APOLOGIZED FOR VENTING. CHARGE NURSE MILLY AND THIS NURSE BOTH TOLD PATIENT HE HAS NOTHING TO BE SORRY ABOUT. PATIENT WAS TOLD STAFF IS SORRY FOR THE TREATMENT HE RECEIVED FROM SOME STAFF. PATIENT FINALLY RELAXED ENOUGH AND WENT TO BED SHORTLY AFTER MIDNIGHT AND HAS SLEPT THE REST OF THE NIGHT VERY WELL.
[2025-02-25 06:00] VITALS: BP 134/86; PULSE 83; RESP 18; TEMP 36.5; O2SAT 99
[2025-02-25] MEDS: venlafaxine ER (24HR) 75 mg Capsule 150 MG PO (09:52)
[2025-02-25 14:00] VITALS: BP 117/78; PULSE 195; RESP 18; TEMP 37.1; O2SAT 95
--- NOTE | 2025-02-25 16:27 | PC.OT ---
PT DEBATING IF HE WAS GOING TO ATTEND OT ANGER MANAGEMENT GROUP WHILE THERAPIST WAS ANNOUNCING GROUP TIME TO UNIT. ANOTHER STAFF MEMBER MADE THE STATEMENT TO PT THIS IS ONE YOU SHOULD ATTEND IN ATTEMPTS TO ENCOURAGE PT. PT TOOK THE COMMENT AN INSULT TO HIS PROGRESS AND IMMEDIATELY SHUT DOWN AND DECLINED TO ATTEND. PT DID HOWEVER, CALMLY FOLLOW PEERS TO THE GROUP ROOM. ONCE THERE PT DECIDED TO RETURN TO HIS ROOM. PT WAS ABLE TO STAY CALM AND JUST SAT IN HIS ROOM. AFTER GROUP PT CAME TO THIS STAFF AND APOLOGIZED FOR MISSING GROUP AND FOR MISINTERPRETING OTHER STAFFS INTENTION. PT DISPLAYING IMPROVED ABILITY TO MANAGE EMOTIONS AND CONTINUES TO PUT FORTH GOOD EFFORT IN GROUPS.
--- NOTE | 2025-02-25 18:24 | PC.NURSE ---
Pt has been sad and down today, pt is losing hope about finding placement. Pt is ready to leave and start living life again. Pt did show restraint and did not have an outburst. This nurse is proud of pt and voiced my opinion to the pt and encouraged pt to keep his head up.
--- NOTE | 2025-02-25 18:57 | PC.NURSE ---
Patient noted to be very tearful when this nurse got to the unit. Zyprexa Zydis 5mg SL given along with a nicotine lozenge. Patient stated he has not yet heard anything from [facility] on status of his interview that he had Monday. patient states he is very super tired of being here.
[2025-02-25 19:09] VITALS: BP 139/101; PULSE 84; RESP 20; TEMP 37.2; O2SAT 96
--- NOTE | 2025-02-25 19:10 | P.NPUPN_ITS ---
Subjective NPU 2 Subjective: Patient presented today reporting that things are fine. He denied any side effects of the medication and reports that he is just waiting to hear from the [facility] and hopeful. There were no concerns per staff reports and direct observation. Mental Status Exam 2 MSE Comments: This is a well-nourished, well-developed, white male, in hospital scrubs seen in room with adequate grooming and good eye contact. There was evidence of mild psychomotor retardation There was no evidence of any abnormal involuntary motor movements. He was cooperative with exam. Speech was normal in rhythm, rate and volume, and normal in production. Mood described as better. His affect was congruent.Thought process was linear and organized. Thought content: patient denies active homicidal ideation or suicidal ideation. Patient denied any auditory or visual hallucinations.There was no evidence of delusional thinking. Attention span remained poor. Insight is poor. Judgment is limited. Impulse control is guarded. The is alert and oriented to person, place and time. Vitals/I&O/Wt Last Vital Signs Temp 99.0 F 02/25/25 19:09 Pulse 84 02/25/25 19:09 Resp 20 H 02/25/25 19:09 BP 139/101 02/25/25 19:09 Pulse Ox 96 02/25/25 19:09 O2 Del Method Room Air 02/25/25 19:09 O2 Flow Rate 6 01/19/25 04:45 FiO2 24 01/20/25 12:24 Physical Exam 2 Urinary Catheter Management: Perez: Cath Placed During This Visit: yes Urinary Catheter Date of Insertion: 01/19/25 Urinary Catheter Time of Insertion: 05:15 Data NPU 02/09/25 09:01 01/20/25 05:45 A&P Assessment and plan 1. Suicidal behavior with attempted self-injury: 2. Multiple drug overdose: 3. Toxic encephalopathy: 4. Suicidal ideation: 5. Major depressive disorder: 6. Attention-deficit hyperactivity disorder, unspecified type: 7. Alcohol abuse: Patient has this history of alcohol abuse. Ethanol level was 0 8. Borderline personality disorder: 9. Drug overdose: 10. Suicidal ideations: 11. PTSD (post-traumatic stress disorder): 12. Bipolar disorder with depression: 13. Suicide attempt: 14. Panic attacks: 15. History of OCD (obsessive compulsive disorder): Plan: 24-year-old white male extensive history of multiple inpatient hospitalizations with borderline personality traits, dysthymia, extremely poor coping skills and signficant attention seeking behavior who presents once again with suicidal ideation with overdose with intubation in ICU. Patient has poor impulse control and continued affective instability. 1. Encourage individual, group and milieu therapy. 2. Recommend sober living treatment at the highest level of care to which the patient is willing to commit. Possibility for rehab bed sooner rather than later so we will need to address whether he is safe and/or ready for this option. 3. Patient remaining on 1-1. 4. Will simplify medication regimen, these medications have been unhelpful and patient requires more intense psychotherapy possibly in terminal make up operator facility. Patient requires case management services, intense DBT services. 5. Continue Effexor XR 150mg daily, continue [place] 450mg bid, 6. Patient under guardianship. He continues to remain steady here. The patient lacks ability to manage emotions and requires intense services such as DBT to help with managing poor impulse control. In an uncontrolled environment, patient would frequently and impulsively overdose on medications. 7. Continue propranolol at 10mg tid, increase valium 2.5mg am, 2.5mg at 3pm 5mg at night. Patient appears less irritable in the absence of ritalin. 8. Patient has interview with [facility] 02/24/2025. Awaiting response. PDMP PDMP Reviewed: Not Reviewed Involuntary Hold Information 2 Hold Status: Legal Status: Active Guardianship Date/Time Hold Expires: 96 Hour Hold: 96 Hour Involuntary Admission: Yes Other Hold: Hold End Date: 07/01/24 Attestations NPU 2 Medical Necessity Statement*: Inpatient hospitalization is medically necessary and the clinically appropriate intervention at this time. We will monitor medications and make changes as indicated. The patient's likely length of stay will be hopefully 5-7 days as we search for placement. Coding Level of Care Code Acute Code for [facility] Fwd Diagnoses Suicidal behavior with attempted self-injury T14.91XA Multiple drug overdose T50.911A Toxic encephalopathy G92.9 Suicidal ideation R45.851 Major depressive disorder F32.9 Attention-deficit hyperactivity disorder, unspecified type F90.9 Alcohol abuse F10.10 Borderline personality disorder F60.3 Drug overdose T50.902A Encounter type: initial encounter Injury intent: intentional self-harm PTSD (post-traumatic stress disorder) F43.10 Bipolar disorder with depression F31.9 Suicide attempt T14.91XA Panic attacks F41.0 History of OCD (obsessive compulsive disorder) Z86.59
[2025-02-26 06:00] VITALS: BP 164/96; PULSE 95; RESP 16; TEMP 36.6; O2SAT 98
[2025-02-26] MEDS: venlafaxine ER (24HR) 75 mg Capsule 150 MG PO (08:56)
--- NOTE | 2025-02-26 12:52 | P.NPUPN_ITS ---
Subjective NPU 2 Subjective: Patient presented today reporting that he is managing himself fine and that he is still anxious about the particular step. We he has no choice but does not wait a while. We discussed some of his hobbies and the benefits of doing those things instead of the issues that he allows to get him derailed. He reports that his medication is working fine and denied any side effects. We discussed him continuing to work with the social work team on discharge possibilities. Mental Status Exam 2 MSE Comments: This is a well-nourished, well-developed, white male, in hospital scrubs seen in room with adequate grooming and good eye contact. There was evidence of mild psychomotor retardation There was no evidence of any abnormal involuntary motor movements. He was cooperative with exam. Speech was normal in rhythm, rate and volume, and normal in production. Mood described as better. His affect was congruent.Thought process was linear and organized. Thought content: patient denies active homicidal ideation or suicidal ideation. Patient denied any auditory or visual hallucinations.There was no evidence of delusional thinking. Attention span remained poor. Insight is poor. Judgment is limited. Impulse control is guarded. The is alert and oriented to person, place and time. Vitals/I&O/Wt Last Vital Signs Temp 97.9 F 02/26/25 06:00 Pulse 95 02/26/25 06:00 Resp 16 02/26/25 06:00 BP 164/96 02/26/25 06:00 Pulse Ox 98 02/26/25 06:00 O2 Del Method Room Air 02/26/25 06:00 O2 Flow Rate 6 01/19/25 04:45 FiO2 24 01/20/25 12:24 Physical Exam 2 Urinary Catheter Management: Perez: Cath Placed During This Visit: yes Urinary Catheter Date of Insertion: 01/19/25 Urinary Catheter Time of Insertion: 05:15 Data NPU 02/09/25 09:01 01/20/25 05:45 A&P Assessment and plan 1. Suicidal behavior with attempted self-injury: 2. Multiple drug overdose: 3. Toxic encephalopathy: 4. Suicidal ideation: 5. Major depressive disorder: 6. Attention-deficit hyperactivity disorder, unspecified type: 7. Alcohol abuse: Patient has this history of alcohol abuse. Ethanol level was 0 8. Borderline personality disorder: 9. Drug overdose: 10. Suicidal ideations: 11. PTSD (post-traumatic stress disorder): 12. Bipolar disorder with depression: 13. Suicide attempt: 14. Panic attacks: 15. History of OCD (obsessive compulsive disorder): Plan: 24-year-old white male extensive history of multiple inpatient hospitalizations with borderline personality traits, dysthymia, extremely poor coping skills and signficant attention seeking behavior who presents once again with suicidal ideation with overdose with intubation in ICU. Patient has poor impulse control and continued affective instability. 1. Encourage individual, group and milieu therapy. 2. Recommend sober living treatment at the highest level of care to which the patient is willing to commit. Possibility for rehab bed sooner rather than later so we will need to address whether he is safe and/or ready for this option. 3. Patient remaining on 1-1. 4. Will simplify medication regimen, these medications have been unhelpful and patient requires more intense psychotherapy possibly in [facility] terminal [facility] facility. Patient requires case management services, intense DBT services. 5. Continue Effexor XR 150mg daily, continue [place] 450mg bid, 6. Patient under guardianship. He continues to remain steady here. The patient lacks ability to manage emotions and requires intense services such as DBT to help with managing poor impulse control. In an uncontrolled environment, patient would frequently and impulsively overdose on medications. 7. Continue propranolol at 10mg tid, increase valium 2.5mg am, 2.5mg at 3pm 5mg at night. Patient appears less irritable in the absence of ritalin. 8. Patient has interview with [facility] [employer] 02/24/2025. Awaiting response. But also pursuing alternatives still. PDMP PDMP Reviewed: Not Reviewed Involuntary Hold Information 2 Hold Status: Legal Status: Active Guardianship Date/Time Hold Expires: 96 Hour Hold: 96 Hour Involuntary Admission: Yes Other Hold: Hold End Date: 07/01/24 Attestations NPU 2 Medical Necessity Statement*: Inpatient hospitalization is medically necessary and the clinically appropriate intervention at this time. We will monitor medications and make changes as indicated. The patient's likely length of stay will be hopefully 5-7 days as we search for placement. Coding Level of Care Code Acute Code for [facility] Fwd Diagnoses Suicidal behavior with attempted self-injury T14.91XA Multiple drug overdose T50.911A Toxic encephalopathy G92.9 Suicidal ideation R45.851 Major depressive disorder F32.9 Attention-deficit hyperactivity disorder, unspecified type F90.9 Alcohol abuse F10.10 Borderline personality disorder F60.3 Drug overdose T50.902A Encounter type: initial encounter Injury intent: intentional self-harm PTSD (post-traumatic stress disorder) F43.10 Bipolar disorder with depression F31.9 Suicide attempt T14.91XA Panic attacks F41.0 History of OCD (obsessive compulsive disorder) Z86.59
[2025-02-26 14:00] VITALS: BP 118/83; PULSE 87; RESP 19; TEMP 36.6; O2SAT 99
[2025-02-26 20:27] VITALS: BP 140/89; PULSE 77; RESP 20; TEMP 37.5; O2SAT 98
[2025-02-27 06:00] VITALS: BP 131/88; PULSE 76; RESP 16; TEMP 37; O2SAT 96
[2025-02-27] MEDS: venlafaxine ER (24HR) 75 mg Capsule 150 MG PO (08:02)
--- NOTE | 2025-02-27 12:46 | W.PM.NPUPNS ---
Subjective NPU Subjective: Patient presented today reporting that he is okay with having some continued frustration about things not coming together. He understands that that does not help but he reports he is trying to regulate his emotions. He is hopeful that 1 of these options that social work is working on will come through soon. He reports he feels his medications are working fine and he does realize that he is at a much better place than he was when his hospitalization started this time. He denied any side effects to the medication. Mental Status Exam MSE Comments: This is a well-nourished, well-developed, white male, in hospital scrubs seen in room with adequate grooming and good eye contact. There was evidence of mild psychomotor retardation There was no evidence of any abnormal involuntary motor movements. He was cooperative with exam. Speech was normal in rhythm, rate and volume, and normal in production. Mood described as better. His affect was congruent.Thought process was linear and organized. Thought content: patient denies active homicidal ideation or suicidal ideation. Patient denied any auditory or visual hallucinations.There was no evidence of delusional thinking. Attention span remained poor. Insight is poor. Judgment is limited. Impulse control is guarded. The is alert and oriented to person, place and time. Vitals/I&O/Wt Last Vital Signs Temp 98.6 F 02/27/25 06:00 Pulse 76 02/27/25 06:00 Resp 16 02/27/25 06:00 BP 131/88 02/27/25 06:00 Pulse Ox 96 02/27/25 06:00 O2 Del Method Room Air 02/26/25 20:27 O2 Flow Rate 6 01/19/25 04:45 FiO2 24 01/20/25 12:24 Physical Exam Urinary Catheter Management: Perez: Cath Placed During This Visit: yes Urinary Catheter Date of Insertion: 01/19/25 Urinary Catheter Time of Insertion: 05:15 Data NPU 02/09/25 09:01 01/20/25 05:45 A&P Assessment and plan 1. Suicidal behavior with attempted self-injury: 2. Multiple drug overdose: 3. Toxic encephalopathy: 4. Suicidal ideation: 5. Major depressive disorder: 6. Attention-deficit hyperactivity disorder, unspecified type: 7. Alcohol abuse: Patient has this history of alcohol abuse. Ethanol level was 0 8. Borderline personality disorder: 9. Drug overdose: 10. Suicidal ideations: 11. PTSD (post-traumatic stress disorder): 12. Bipolar disorder with depression: 13. Suicide attempt: 14. Panic attacks: 15. History of OCD (obsessive compulsive disorder): Plan: 24-year-old white male extensive history of multiple inpatient hospitalizations with borderline personality traits, dysthymia, extremely poor coping skills and signficant attention seeking behavior who presents once again with suicidal ideation with overdose with intubation in ICU. Patient has poor impulse control and continued affective instability. 1. Encourage individual, group and milieu therapy. 2. Recommend sober living treatment at the highest level of care to which the patient is willing to commit. Possibility for rehab bed sooner rather than later so we will need to address whether he is safe and/or ready for this option. 3. Patient remaining on 1-1. 4. Will simplify medication regimen, these medications have been unhelpful and patient requires more intense psychotherapy possibly in nursing home facility. Patient requires case management services, intense DBT services. 5. Continue Effexor XR 150mg daily, continue [place] 450mg bid, 6. Patient under guardianship. He continues to remain steady here. The patient lacks ability to manage emotions and requires intense services such as DBT to help with managing poor impulse control. In an uncontrolled environment, patient would frequently and impulsively overdose on medications. 7. Continue propranolol at 10mg tid, increase valium 2.5mg am, 2.5mg at 3pm 5mg at night. Patient appears less irritable in the absence of ritalin. 8. [facility] 02/24/2025. Awaiting response. But also pursuing alternatives still. PDMP PDMP Reviewed: Not Reviewed Involuntary Hold Information Hold Status: Legal Status: Active Guardianship Date/Time Hold Expires: 02/18/2025 96 Hour Hold: 96 Hour Involuntary Admission: Yes Other Hold: Hold End Date: 07/01/24 Attestations NPU Medical Necessity Statement*: Inpatient hospitalization is medically necessary and the clinically appropriate intervention at this time. We will monitor medications and make changes as indicated. The patient's likely length of stay will be hopefully 5-7 days as we search for placement. Coding Level of Care Code Acute Code for [facility] Fwd Diagnoses Suicidal behavior with attempted self-injury T14.91XA Multiple drug overdose T50.911A Toxic encephalopathy G92.9 Suicidal ideation R45.851 Major depressive disorder F32.9 Attention-deficit hyperactivity disorder, unspecified type F90.9 Alcohol abuse F10.10 Borderline personality disorder F60.3 Drug overdose T50.902A Encounter type: initial encounter Injury intent: intentional self-harm PTSD (post-traumatic stress disorder) F43.10 Bipolar disorder with depression F31.9 Suicide attempt T14.91XA Panic attacks F41.0 History of OCD (obsessive compulsive disorder) Z86.59
[2025-02-27 13:40] VITALS: BP 110/74; PULSE 67; RESP 16; TEMP 37.1; O2SAT 98
[2025-02-27 21:30] VITALS: BP 124/76; PULSE 93; RESP 18; TEMP 36.5; O2SAT 97
--- NOTE | 2025-02-28 04:39 | PC.NURSE ---
During this nurses shift assessment, the pt was asked if he was having any thoughts of harming himself or anyone else. The pt responded just myself. When asked if he had a plan for how he would hurt himself, pt replied i guess i could move my night stand over and hang myself with my bed sheets. But im not going to do that. This nurse asked pt why he was feeling this way to which he replied i don't know im just so tired of being here and it would be so easy to just give up right now. This nurse was then pulled away to assist with another pt on the unit. When this nurse approached the pt later on the pt stated can we just take my night stand out of my room? Out of sight out of mind. This nurse agreed and the night stand was moved out of pts room.. This nurse then asked the pt if he was still having thoughts of wanting to harm himself and he responded im sure i could do something but without the night stand there?s not much else i can do. This nurse then went and informed Dr. Bowie about the situation and statements made by the pt. Dr. Bowie stated that if we felt the need to remove the night stand then we can and to continue to keep an eye on the pt. This nurse then asked the provider about the pts bed sheets and whether or not we should remove them from pts room. Dr. Bowie stated that he did not feel it was necessary at this time to remove the pts bed sheets and ordered that we just continue to keep an eye on the pt/continue to talk to him. Throughout the rest of the night this nurse continued to ask pt how he was feeling and if we felt it was necessary to remove the linens from his room. Pt responded every time with i don't think so, I?m not going to do anything and like i said without the night stand there isn?t much i can do. This nurse continued to encourage the pt to express his feelings to staff members. Pt then stated that he was bored and asked this nurse to print out word puzzles to keep him busy. Pt sat in his room and worked on word puzzles until he eventually fell asleep. Pt is now observed resting in bed quietly with eyes closed. No distress noted at this time. HS and Nurse Truck Rental Clerk were notified of pts statements.
--- NOTE | 2025-02-28 06:28 | PC.NURSE ---
vitals not done per nurse request, resp 16
[2025-02-28] MEDS: venlafaxine ER (24HR) 75 mg Capsule 150 MG PO (07:29)
[2025-02-28 14:00] VITALS: BP 134/93; PULSE 103; RESP 16; TEMP 36.7; O2SAT 97
--- NOTE | 2025-02-28 16:07 | P.NPUPN_ITS ---
Subjective NPU 2 Subjective: Patient presented today reporting that things are okay. He continues to have limited frustration about not having been accepted anywhere but we continue to discussed the continued search and referrals being put out there in hopes that someone will identify how he has had such significant improvement and is certainly ready for some kind of program to assist in his behavior patterns. He denied any side effects of the medication. Mental Status Exam 2 MSE Comments: This is a well-nourished, well-developed, white male, in hospital scrubs seen in room with adequate grooming and good eye contact. There was evidence of mild psychomotor retardation There was no evidence of any abnormal involuntary motor movements. He was cooperative with exam. Speech was normal in rhythm, rate and volume, and normal in production. Mood described as better. His affect was congruent.Thought process was linear and organized. Thought content: patient denies active homicidal ideation or suicidal ideation. Patient denied any auditory or visual hallucinations.There was no evidence of delusional thinking. Attention span remained poor. Insight is poor. Judgment is limited. Impulse control is guarded. The is alert and oriented to person, place and time. Vitals/I&O/Wt Last Vital Signs Temp 97.7 F 02/27/25 21:30 Pulse 93 02/27/25 21:30 Resp 18 02/27/25 21:30 BP 124/76 02/27/25 21:30 Pulse Ox 97 02/27/25 21:30 O2 Del Method Room Air 02/27/25 13:40 O2 Flow Rate 6 01/19/25 04:45 FiO2 24 01/20/25 12:24 Physical Exam 2 Urinary Catheter Management: Perez: Cath Placed During This Visit: yes Urinary Catheter Date of Insertion: 01/19/25 Urinary Catheter Time of Insertion: 05:15 Data NPU 02/09/25 09:01 01/20/25 05:45 A&P Assessment and plan 1. Suicidal behavior with attempted self-injury: 2. Multiple drug overdose: 3. Toxic encephalopathy: 4. Suicidal ideation: 5. Major depressive disorder: 6. Attention-deficit hyperactivity disorder, unspecified type: 7. Alcohol abuse: Patient has this history of alcohol abuse. Ethanol level was 0 8. Borderline personality disorder: 9. Drug overdose: 10. Suicidal ideations: 11. PTSD (post-traumatic stress disorder): 12. Bipolar disorder with depression: 13. Suicide attempt: 14. Panic attacks: 15. History of OCD (obsessive compulsive disorder): Plan: 24-year-old white male extensive history of multiple inpatient hospitalizations with borderline personality traits, dysthymia, extremely poor coping skills and signficant attention seeking behavior who presents once again with suicidal ideation with overdose with intubation in ICU. Patient has poor impulse control and continued affective instability. 1. Encourage individual, group and milieu therapy. 2. Recommend sober living treatment at the highest level of care to which the patient is willing to commit. Possibility for rehab bed sooner rather than later so we will need to address whether he is safe and/or ready for this option. 3. Patient remaining on 1-1. 4. Will simplify medication regimen, these medications have been unhelpful and patient requires more intense psychotherapy possibly in long term care social worker facility. Patient requires case management services, intense DBT services. 5. Continue Effexor XR 150mg daily, continue [place] 450mg bid, 6. Patient under guardianship. He continues to remain steady here. The patient lacks ability to manage emotions and requires intense services such as DBT to help with managing poor impulse control. In an uncontrolled environment, patient would frequently and impulsively overdose on medications. 7. Continue propranolol at 10mg tid, increase valium 2.5mg am, 2.5mg at 3pm 5mg at night. Patient appears less irritable in the absence of ritalin. 8. Patient has [facility] with [facility] [employer] 02/24/2025. Awaiting response. But also pursuing alternatives still. PDMP PDMP Reviewed: Not Reviewed Involuntary Hold Information 2 Hold Status: Legal Status: Active Guardianship Date/Time Hold Expires: [facility] 96 Hour Hold: 96 Hour Involuntary Admission: Yes Other Hold: Hold End Date: 07/01/24 Attestations NPU 2 Medical Necessity Statement*: Inpatient hospitalization is medically necessary and the clinically appropriate intervention at this time. We will monitor medications and make changes as indicated. The patient's likely length of stay will be hopefully 5-7 days as we search for placement. Coding Level of Care Code Acute Code for Chg Fwd Diagnoses Suicidal behavior with attempted self-injury T14.91XA Multiple drug overdose T50.911A Toxic encephalopathy G92.9 Suicidal ideation R45.851 Major depressive disorder F32.9 Attention-deficit hyperactivity disorder, unspecified type F90.9 Alcohol abuse F10.10 Borderline personality disorder F60.3 Drug overdose T50.902A Encounter type: initial encounter Injury intent: intentional self-harm PTSD (post-traumatic stress disorder) F43.10 Bipolar disorder with depression F31.9 Suicide attempt T14.91XA Panic attacks F41.0 History of OCD (obsessive compulsive disorder) Z86.59
[2025-02-28 19:35] VITALS: BP 111/65; PULSE 79; RESP 16; TEMP 36.5; O2SAT 98
[2025-03-01 06:00] VITALS: BP 113/67; PULSE 89; RESP 18; TEMP 36.6; O2SAT 98
[2025-03-01] MEDS: venlafaxine ER (24HR) 75 mg Capsule 150 MG PO (08:08)
--- NOTE | 2025-03-01 08:38 | NUR.SHIFT ---
Pt states that he slept pretty good. He states that he denies anxiety and depression at this time. No reports of SI/HI or hallucinations. He is calm and cooperative on assessment. He is a bit elated this morning with staff and peers.
[2025-03-01 14:00] VITALS: BP 143/93; PULSE 86; RESP 16; TEMP 36.6; O2SAT 97
--- NOTE | 2025-03-01 18:31 | P.NPUPN_ITS ---
Subjective NPU 2 Subjective: Patient presented today reporting that things are going fine but he was a little frustrated about the fact that he felt the nursing team was worried that he was asking for #2 contact someone and start some kind of a problem. He denied this is the case and reported that he just has some frustration and was fearful that this would turn into him being reported as being in a bad place which would make him look bad and then he would have difficulty being placed. We discussed the fact that he has come a long way and that is a pleasure on our part that he is approaching things the way that he has and we will continue to assist him in making sure other people looking at the situation and understand his progress but his continued need for somebody to support his continued personal growth. Otherwise he denied any side effects of medication and reports he is feeling fine. Mental Status Exam 2 MSE Comments: This is a well-nourished, well-developed, white male, in hospital scrubs seen in room with adequate grooming and good eye contact. There was evidence of mild psychomotor retardation There was no evidence of any abnormal involuntary motor movements. He was cooperative with exam. Speech was normal in rhythm, rate and volume, and normal in production. Mood described as a little frustrated. His affect was congruent.Thought process was linear and organized. Thought content: patient denies active homicidal ideation or suicidal ideation. Patient denied any auditory or visual hallucinations. There was no evidence of delusional thinking. Attention span remained poor. Insight is poor. Judgment is limited. Impulse control is guarded. The is alert and oriented to person, place and time. Vitals/I&O/Wt Last Vital Signs Temp 98.8 F 03/01/25 20:04 Pulse 91 03/01/25 20:04 Resp 17 03/01/25 20:04 BP 137/95 03/01/25 20:04 Pulse Ox 96 03/01/25 20:04 O2 Del Method Room Air 03/01/25 20:04 O2 Flow Rate 6 01/19/25 04:45 FiO2 24 01/20/25 12:24 Weight last 48 hrs Weight 104.054 kg Weight 104.054 kg Weight 104.054 kg Physical Exam 2 Urinary Catheter Management: Perez: Cath Placed During This Visit: yes Urinary Catheter Date of Insertion: 01/19/25 Urinary Catheter Time of Insertion: 05:15 Data NPU 02/09/25 09:01 01/20/25 05:45 A&P Assessment and plan 1. Suicidal behavior with attempted self-injury: 2. Multiple drug overdose: 3. Toxic encephalopathy: 4. Suicidal ideation: 5. Major depressive disorder: 6. Attention-deficit hyperactivity disorder, unspecified type: 7. Alcohol abuse: Patient has this history of alcohol abuse. Ethanol level was 0 8. Borderline personality disorder: 9. Drug overdose: 10. Suicidal ideations: 11. PTSD (post-traumatic stress disorder): 12. Bipolar disorder with depression: 13. Suicide attempt: 14. Panic attacks: 15. History of OCD (obsessive compulsive disorder): Plan: 24-year-old white male extensive history of multiple inpatient hospitalizations with borderline personality traits, dysthymia, extremely poor coping skills and signficant attention seeking behavior who presents once again with suicidal ideation with overdose with intubation in ICU. Patient has poor impulse control and continued affective instability. 1. Encourage individual, group and milieu therapy. 2. Recommend sober living treatment at the highest level of care to which the patient is willing to commit. Possibility for rehab bed sooner rather than later so we will need to address whether he is safe and/or ready for this option. 3. Patient remaining on 1-1. 4. Will simplify medication regimen, these medications have been unhelpful and patient requires more intense psychotherapy possibly in jail facility. Patient requires case management services, intense DBT services. 5. Continue Effexor XR 150mg daily, continue [place] 450mg bid, 6. Patient under guardianship. He continues to remain steady here. The patient lacks ability to manage emotions and requires intense services such as DBT to help with managing poor impulse control. In an uncontrolled environment, patient would frequently and impulsively overdose on medications. 7. Continue propranolol at 10mg tid, increase valium 2.5mg am, 2.5mg at 3pm 5mg at night. Patient appears less irritable in the absence of ritalin. 8. Patient has [facility] with [facility] [employer] 02/24/2025. Awaiting response. But also pursuing alternatives still. PDMP PDMP Reviewed: Not Reviewed Involuntary Hold Information 2 Hold Status: Legal Status: Active Guardianship Date/Time Hold Expires: [facility] 96 Hour Hold: 96 Hour Involuntary Admission: Yes Other Hold: Hold End Date: 07/01/24 Attestations NPU 2 Medical Necessity Statement*: Inpatient hospitalization is medically necessary and the clinically appropriate intervention at this time. We will monitor medications and make changes as indicated. The patient's likely length of stay will be hopefully 5-7 days as we search for placement. Coding Level of Care Code Acute Code for Chg Fwd Diagnoses Suicidal behavior with attempted self-injury T14.91XA Multiple drug overdose T50.911A Toxic encephalopathy G92.9 Suicidal ideation R45.851 Major depressive disorder F32.9 Attention-deficit hyperactivity disorder, unspecified type F90.9 Alcohol abuse F10.10 Borderline personality disorder F60.3 Drug overdose T50.902A Encounter type: initial encounter Injury intent: intentional self-harm PTSD (post-traumatic stress disorder) F43.10 Bipolar disorder with depression F31.9 Suicide attempt T14.91XA Panic attacks F41.0 History of OCD (obsessive compulsive disorder) Z86.59
[2025-03-01 20:04] VITALS: BP 137/95; PULSE 91; RESP 17; TEMP 37.1; O2SAT 96
[2025-03-02 06:00] VITALS: BP 106/61; PULSE 68; RESP 18; O2SAT 98
[2025-03-02] MEDS: venlafaxine ER (24HR) 75 mg Capsule 150 MG PO (08:52)
[2025-03-02 14:00] VITALS: BP 119/72; PULSE 88; RESP 17; TEMP 36.8; O2SAT 98
--- NOTE | 2025-03-02 14:35 | P.NPUPN_ITS ---
Subjective NPU 2 Subjective: Patient presented today reporting that things are going a little better today than yesterday. He continues to await some word that somebody is willing to give him a chance in their programming. He acknowledges that this is the next step in this long process but that it is harder. He is going to [facility] for a change for acceptance from some program. He denied any issues with medication and denied any side effects. Mental Status Exam 2 MSE Comments: This is a well-nourished, well-developed, white male, in hospital scrubs seen in room with adequate grooming and good eye contact. There was evidence of mild psychomotor retardation There was no evidence of any abnormal involuntary motor movements. He was cooperative with exam. Speech was normal in rhythm, rate and volume, and normal in production. Mood described as better than yesterday. His affect was congruent.Thought process was linear and organized. Thought content: patient denies active homicidal ideation or suicidal ideation. Patient denied any auditory or visual hallucinations. There was no evidence of delusional thinking. Attention span remained poor. Insight is poor. Judgment is limited. Impulse control is guarded. The is alert and oriented to person, place and time. Vitals/I&O/Wt Last Vital Signs Temp 98.3 F 03/02/25 14:00 Pulse 88 03/02/25 14:00 Resp 17 03/02/25 14:00 BP 119/72 03/02/25 14:00 Pulse Ox 98 03/02/25 14:00 O2 Del Method Room Air 03/02/25 06:00 O2 Flow Rate 6 01/19/25 04:45 FiO2 24 01/20/25 12:24 Weight last 48 hrs Weight 104.054 kg Weight 104.054 kg Weight 104.054 kg Physical Exam 2 Urinary Catheter Management: Perez: Cath Placed During This Visit: yes Urinary Catheter Date of Insertion: 01/19/25 Urinary Catheter Time of Insertion: 05:15 Data NPU 02/09/25 09:01 01/20/25 05:45 A&P Assessment and plan 1. Suicidal behavior with attempted self-injury: 2. Multiple drug overdose: 3. Toxic encephalopathy: 4. Suicidal ideation: 5. Major depressive disorder: 6. Attention-deficit hyperactivity disorder, unspecified type: 7. Alcohol abuse: Patient has this history of alcohol abuse. Ethanol level was 0 8. Borderline personality disorder: 9. Drug overdose: 10. Suicidal ideations: 11. PTSD (post-traumatic stress disorder): 12. Bipolar disorder with depression: 13. Suicide attempt: 14. Panic attacks: 15. History of OCD (obsessive compulsive disorder): Plan: 24-year-old white male extensive history of multiple inpatient hospitalizations with borderline personality traits, dysthymia, extremely poor coping skills and signficant attention seeking behavior who presents once again with suicidal ideation with overdose with intubation in ICU. Patient has poor impulse control and continued affective instability. 1. Encourage individual, group and milieu therapy. 2. Recommend sober living treatment at the highest level of care to which the patient is willing to commit. Possibility for rehab bed sooner rather than later so we will need to address whether he is safe and/or ready for this option. 3. Patient remaining on 1-1. 4. Will simplify medication regimen, these medications have been unhelpful and patient requires more intense psychotherapy possibly in [facility] facility. Patient requires case management services, intense DBT services. 5. Continue Effexor XR 150mg daily, continue [place] 450mg bid, 6. Patient under guardianship. He continues to remain steady here. The patient lacks ability to manage emotions and requires intense services such as DBT to help with managing poor impulse control. In an uncontrolled environment, patient would frequently and impulsively overdose on medications. 7. Continue propranolol at 10mg tid, increase valium 2.5mg am, 2.5mg at 3pm 5mg at night. Patient appears less irritable in the absence of ritalin. 8. Patient has interview with [facility] [employer] 02/24/2025. Awaiting response. But also pursuing alternatives still. PDMP PDMP Reviewed: Not Reviewed Involuntary Hold Information 2 Hold Status: Legal Status: Active Guardianship Date/Time Hold Expires: [facility] 96 Hour Hold: 96 Hour Involuntary Admission: Yes Other Hold: Hold End Date: 07/01/24 Attestations NPU 2 Medical Necessity Statement*: Inpatient hospitalization is medically necessary and the clinically appropriate intervention at this time. We will monitor medications and make changes as indicated. The patient's likely length of stay will be hopefully 5-7 days as we search for placement. Coding Level of Care Code Acute Code for [facility] Fwd Diagnoses Suicidal behavior with attempted self-injury T14.91XA Multiple drug overdose T50.911A Toxic encephalopathy G92.9 Suicidal ideation R45.851 Major depressive disorder F32.9 Attention-deficit hyperactivity disorder, unspecified type F90.9 Alcohol abuse F10.10 Borderline personality disorder F60.3 Drug overdose T50.902A Encounter type: initial encounter Injury intent: intentional self-harm PTSD (post-traumatic stress disorder) F43.10 Bipolar disorder with depression F31.9 Suicide attempt T14.91XA Panic attacks F41.0 History of OCD (obsessive compulsive disorder) Z86.59
[2025-03-02 20:08] VITALS: BP 133/88; PULSE 76; RESP 18; TEMP 36.8; O2SAT 98
[2025-03-03 06:00] VITALS: BP 115/71; PULSE 78; RESP 17; O2SAT 96
[2025-03-03] MEDS: venlafaxine ER (24HR) 75 mg Capsule 150 MG PO (08:04)
--- NOTE | 2025-03-03 13:07 | P.NPUPN_ITS ---
Subjective NPU 2 Subjective: Patient presented today continuing to await some kind of placement opportunity. He continues to wait his frustration about no opportunities but accepts the fact that we cannot force anyone's hand for our desired outcome. He denied any issues or side effects with medication and reports from staff were positive. Mental Status Exam 2 MSE Comments: This is a well-nourished, well-developed, white male, in hospital scrubs seen in room with adequate grooming and good eye contact. There was evidence of mild psychomotor retardation There was no evidence of any abnormal involuntary motor movements. He was cooperative with exam. Speech was normal in rhythm, rate and volume, and normal in production. Mood described as doing better. His affect was congruent.Thought process was linear and organized. Thought content: patient denies active homicidal ideation or suicidal ideation. Patient denied any auditory or visual hallucinations. There was no evidence of delusional thinking. Attention span remained poor. Insight is poor. Judgment is limited. Impulse control is guarded. The is alert and oriented to person, place and time. Vitals/I&O/Wt Last Vital Signs Temp 98.3 F 03/02/25 20:08 Pulse 78 03/03/25 06:00 Resp 17 03/03/25 06:00 BP 115/71 03/03/25 06:00 Pulse Ox 96 03/03/25 06:00 O2 Del Method Room Air 03/03/25 06:00 O2 Flow Rate 6 01/19/25 04:45 FiO2 24 01/20/25 12:24 Weight last 48 hrs Weight 104.054 kg Weight 104.054 kg Physical Exam 2 Urinary Catheter Management: Perez: Cath Placed During This Visit: yes Urinary Catheter Date of Insertion: 01/19/25 Urinary Catheter Time of Insertion: 05:15 Data NPU 02/09/25 09:01 01/20/25 05:45 A&P Assessment and plan 1. Suicidal behavior with attempted self-injury: 2. Multiple drug overdose: 3. Toxic encephalopathy: 4. Suicidal ideation: 5. Major depressive disorder: 6. Attention-deficit hyperactivity disorder, unspecified type: 7. Alcohol abuse: Patient has this history of alcohol abuse. Ethanol level was 0 8. Borderline personality disorder: 9. Drug overdose: 10. Suicidal ideations: 11. PTSD (post-traumatic stress disorder): 12. Bipolar disorder with depression: 13. Suicide attempt: 14. Panic attacks: 15. History of OCD (obsessive compulsive disorder): Plan: 24-year-old white male extensive history of multiple inpatient hospitalizations with borderline personality traits, dysthymia, extremely poor coping skills and signficant attention seeking behavior who presents once again with suicidal ideation with overdose with intubation in ICU. Patient has poor impulse control and continued affective instability. 1. Encourage individual, group and milieu therapy. 2. Recommend sober living treatment at the highest level of care to which the patient is willing to commit. Possibility for rehab bed sooner rather than later so we will need to address whether he is safe and/or ready for this option. 3. Patient remaining on 1-1. 4. Will simplify medication regimen, these medications have been unhelpful and patient requires more intense psychotherapy possibly in assisted facility. Patient requires case management services, intense DBT services. 5. Continue Effexor XR 150mg daily, continue [place] 450mg bid, 6. Patient under guardianship. He continues to remain steady here. The patient lacks ability to manage emotions and requires intense services such as DBT to help with managing poor impulse control. In an uncontrolled environment, patient would frequently and impulsively overdose on medications. 7. Continue propranolol at 10mg tid, increase valium 2.5mg am, 2.5mg at 3pm 5mg at night. Patient appears less irritable in the absence of ritalin. 8. Patient has [facility] with [facility] 02/24/2025. Awaiting response. But also pursuing alternatives still. PDMP PDMP Reviewed: Not Reviewed Involuntary Hold Information 2 Hold Status: Legal Status: Active Guardianship Date/Time Hold Expires: [facility] 96 Hour Hold: 96 Hour Involuntary Admission: Yes Other Hold: Hold End Date: 07/01/24 Attestations NPU 2 Medical Necessity Statement*: Inpatient hospitalization is medically necessary and the clinically appropriate intervention at this time. We will monitor medications and make changes as indicated. The patient's likely length of stay will be hopefully 5-7 days as we search for placement. Coding Level of Care Code Acute Code for [facility] Fwd Diagnoses Suicidal behavior with attempted self-injury T14.91XA Multiple drug overdose T50.911A Toxic encephalopathy G92.9 Suicidal ideation R45.851 Major depressive disorder F32.9 Attention-deficit hyperactivity disorder, unspecified type F90.9 Alcohol abuse F10.10 Borderline personality disorder F60.3 Drug overdose T50.902A Encounter type: initial encounter Injury intent: intentional self-harm PTSD (post-traumatic stress disorder) F43.10 Bipolar disorder with depression F31.9 Suicide attempt T14.91XA Panic attacks F41.0 History of OCD (obsessive compulsive disorder) Z86.59
[2025-03-03 20:40] VITALS: BP 136/85; PULSE 72; RESP 18; TEMP 36.5; O2SAT 98
[2025-03-04 06:00] VITALS: BP 122/74; PULSE 81; RESP 18; TEMP 36.6; O2SAT 99
[2025-03-04] MEDS: venlafaxine ER (24HR) 75 mg Capsule 150 MG PO (07:52)
[2025-03-04 14:00] VITALS: BP 123/78; PULSE 72; RESP 18; TEMP 36.8; O2SAT 97
[2025-03-04] MEDS: benzocaine 20% 7 gm 1 APPLIC MUCOUS MEM (16:07)
--- NOTE | 2025-03-04 18:28 | W.PM.NPUPNS ---
Subjective NPU Subjective: Patient presented today reporting that things are going all right. He reports that he is continuing to work with [facility] and try to get updates and be prepared for any interviews or options that are offered. He is frustrated that there has not been any sense of anyone really seeming to want to take him seriously. Otherwise though he reports he is feeling fine and continues to try to work on the issues that he got admitted to the hospital. He denied any side effects of the medication. Mental Status Exam MSE Comments: This is a well-nourished, well-developed, white male, in hospital scrubs seen in room with adequate grooming and good eye contact. There was evidence of mild psychomotor retardation There was no evidence of any abnormal involuntary motor movements. He was cooperative with exam. Speech was normal in rhythm, rate and volume, and normal in production. Mood described as doing better. His affect was congruent.Thought process was linear and organized. Thought content: patient denies active homicidal ideation or suicidal ideation. Patient denied any auditory or visual hallucinations. There was no evidence of delusional thinking. Attention span remained poor. Insight is poor. Judgment is limited. Impulse control is guarded. The is alert and oriented to person, place and time. Vitals/I&O/Wt Last Vital Signs Temp 98.2 F 03/04/25 19:17 Pulse 99 03/04/25 19:17 Resp 18 03/04/25 19:17 BP 131/90 03/04/25 19:17 Pulse Ox 98 03/04/25 19:17 O2 Del Method Room Air 03/04/25 19:17 O2 Flow Rate 6 01/19/25 04:45 FiO2 24 01/20/25 12:24 Physical Exam Urinary Catheter Management: Perez: Cath Placed During This Visit: yes Urinary Catheter Date of Insertion: 01/19/25 Urinary Catheter Time of Insertion: 05:15 Data NPU 02/09/25 09:01 01/20/25 05:45 A&P Assessment and plan 1. Suicidal behavior with attempted self-injury: 2. Multiple drug overdose: 3. Toxic encephalopathy: 4. Suicidal ideation: 5. Major depressive disorder: 6. Attention-deficit hyperactivity disorder, unspecified type: 7. Alcohol abuse: Patient has this history of alcohol abuse. Ethanol level was 0 8. Borderline personality disorder: 9. Drug overdose: 10. Suicidal ideations: 11. PTSD (post-traumatic stress disorder): 12. Bipolar disorder with depression: 13. Suicide attempt: 14. Panic attacks: 15. History of OCD (obsessive compulsive disorder): Plan: 24-year-old white male extensive history of multiple inpatient hospitalizations with borderline personality traits, dysthymia, extremely poor coping skills and signficant attention seeking behavior who presents once again with suicidal ideation with overdose with intubation in ICU. Patient has poor impulse control and continued affective instability. 1. Encourage individual, group and milieu therapy. 2. Recommend sober living treatment at the highest level of care to which the patient is willing to commit. Possibility for rehab bed sooner rather than later so we will need to address whether he is safe and/or ready for this option. 3. Patient remaining on 1-1. 4. Will simplify medication regimen, these medications have been unhelpful and patient requires more intense psychotherapy possibly in [facility] facility. Patient requires case management services, intense DBT services. 5. Continue Effexor XR 150mg daily, continue [place] 450mg bid, 6. Patient under guardianship. He continues to remain steady here. The patient lacks ability to manage emotions and requires intense services such as DBT to help with managing poor impulse control. In an uncontrolled environment, patient would frequently and impulsively overdose on medications. 7. Continue propranolol at 10mg tid, increase valium 2.5mg am, 2.5mg at 3pm 5mg at night. Patient appears less irritable in the absence of ritalin. 8. Patient has interview with [facility] 02/24/2025. Awaiting response. But also pursuing alternatives still. PDMP PDMP Reviewed: Not Reviewed Involuntary Hold Information Hold Status: Legal Status: Active Guardianship Date/Time Hold Expires: guardianship 96 Hour Hold: 96 Hour Involuntary Admission: Yes Other Hold: Hold End Date: 07/01/24 Attestations NPU Medical Necessity Statement*: Inpatient hospitalization is medically necessary and the clinically appropriate intervention at this time. We will monitor medications and make changes as indicated. The patient's likely length of stay will be hopefully 5-7 days as we search for placement. Coding Level of Care Code Acute Code for Chg Fwd Diagnoses Suicidal behavior with attempted self-injury T14.91XA Multiple drug overdose T50.911A Toxic encephalopathy G92.9 Suicidal ideation R45.851 Major depressive disorder F32.9 Attention-deficit hyperactivity disorder, unspecified type F90.9 Alcohol abuse F10.10 Borderline personality disorder F60.3 Drug overdose T50.902A Encounter type: initial encounter Injury intent: intentional self-harm PTSD (post-traumatic stress disorder) F43.10 Bipolar disorder with depression F31.9 Suicide attempt T14.91XA Panic attacks F41.0 History of OCD (obsessive compulsive disorder) Z86.59
[2025-03-04 19:17] VITALS: BP 131/90; PULSE 99; RESP 18; TEMP 36.8; O2SAT 98
[2025-03-05 06:00] VITALS: BP 97/55; PULSE 87; RESP 18; TEMP 36.5; O2SAT 99
[2025-03-05] MEDS: venlafaxine ER (24HR) 75 mg Capsule 150 MG PO (08:26)
--- NOTE | 2025-03-05 11:51 | PC.NURSE ---
Pt. took his long sleeve shirt and wrapped it around his head. A nurse informed him if he was not wearing it the shirt needed to be put up. Pt. became angry, started yelling and said then your going to have to call a code 10. Pt. then came to this property underwriter and said he wanted to talk to the farm supervisor. ASSISTANT SPA MANAGER is contacting the farm supervisor. No code 10 has been called thus far.
[2025-03-05 13:25] VITALS: BP 137/85; PULSE 94; RESP 18; TEMP 36.7; O2SAT 97
--- NOTE | 2025-03-05 13:32 | P.NPUPN_ITS ---
Subjective NPU 2 Subjective: Patient presented today reporting that he is doing okay but he was having some concerns about the possibility of him having [place] on the list of places that he would be finding programming. We discussed the fact that this bond underwriter was not aware of any [place] options and that makes it unlikely that there is anything of substance moving in that area. However we did discuss that his guardianship is here in [place] and so the guardian would not really have a lot of ability to have him do things in [place]. Otherwise he reports that he is just awaiting someplace to go and is hopeful that that happens sooner rather than later. He denies any side effects to his medication. Mental Status Exam 2 MSE Comments: This is a well-nourished, well-developed, white male, in hospital scrubs seen in room with adequate grooming and good eye contact. There was evidence of mild psychomotor retardation There was no evidence of any abnormal involuntary motor movements. He was cooperative with exam. Speech was normal in rhythm, rate and volume, and normal in production. Mood described as doing better. His affect was congruent.Thought process was linear and organized. Thought content: patient denies active homicidal ideation or suicidal ideation. Patient denied any auditory or visual hallucinations. There was no evidence of delusional thinking. Attention span remained poor. Insight is poor. Judgment is limited. Impulse control is guarded. The is alert and oriented to person, place and time. Vitals/I&O/Wt Last Vital Signs Temp 98.1 F 03/05/25 13:25 Pulse 94 03/05/25 13:25 Resp 18 03/05/25 13:25 BP 137/85 03/05/25 13:25 Pulse Ox 97 03/05/25 13:25 O2 Del Method Room Air 03/05/25 06:00 O2 Flow Rate 6 01/19/25 04:45 FiO2 24 01/20/25 12:24 Physical Exam 2 Urinary Catheter Management: Perez: Cath Placed During This Visit: yes Urinary Catheter Date of Insertion: 01/19/25 Urinary Catheter Time of Insertion: 05:15 Data NPU 02/09/25 09:01 01/20/25 05:45 A&P Assessment and plan 1. Suicidal behavior with attempted self-injury: 2. Multiple drug overdose: 3. Toxic encephalopathy: 4. Suicidal ideation: 5. Major depressive disorder: 6. Attention-deficit hyperactivity disorder, unspecified type: 7. Alcohol abuse: Patient has this history of alcohol abuse. Ethanol level was 0 8. Borderline personality disorder: 9. Drug overdose: 10. Suicidal ideations: 11. PTSD (post-traumatic stress disorder): 12. Bipolar disorder with depression: 13. Suicide attempt: 14. Panic attacks: 15. History of OCD (obsessive compulsive disorder): Plan: 24-year-old white male extensive history of multiple inpatient hospitalizations with borderline personality traits, dysthymia, extremely poor coping skills and signficant attention seeking behavior who presents once again with suicidal ideation with overdose with intubation in ICU. Patient has poor impulse control and continued affective instability. 1. Encourage individual, group and milieu therapy. 2. Recommend sober living treatment at the highest level of care to which the patient is willing to commit. Possibility for rehab bed sooner rather than later so we will need to address whether he is safe and/or ready for this option. 3. Patient remaining on 1-1. 4. Will simplify medication regimen, these medications have been unhelpful and patient requires more intense psychotherapy possibly in [facility] facility. Patient requires case management services, intense DBT services. 5. Continue Effexor XR 150mg daily, continue [place] 450mg bid, 6. Patient under guardianship. He continues to remain steady here. The patient lacks ability to manage emotions and requires intense services such as DBT to help with managing poor impulse control. In an uncontrolled environment, patient would frequently and impulsively overdose on medications. 7. Continue propranolol at 10mg tid, increase valium 2.5mg am, 2.5mg at 3pm 5mg at night. Patient appears less irritable in the absence of ritalin. 8. Patient has interview with [facility] 02/24/2025. Awaiting response. But also pursuing alternatives still. PDMP PDMP Reviewed: Not Reviewed Involuntary Hold Information 2 Hold Status: Legal Status: Active Guardianship Date/Time Hold Expires: [facility] 96 Hour Hold: 96 Hour Involuntary Admission: Yes Other Hold: Hold End Date: 07/01/24 Attestations NPU 2 Medical Necessity Statement*: Inpatient hospitalization is medically necessary and the clinically appropriate intervention at this time. We will monitor medications and make changes as indicated. The patient's likely length of stay will be hopefully 5-7 days as we search for placement. Coding Level of Care Code Acute Code for Chg Fwd Diagnoses Suicidal behavior with attempted self-injury T14.91XA Multiple drug overdose T50.911A Toxic encephalopathy G92.9 Suicidal ideation R45.851 Major depressive disorder F32.9 Attention-deficit hyperactivity disorder, unspecified type F90.9 Alcohol abuse F10.10 Borderline personality disorder F60.3 Drug overdose T50.902A Encounter type: initial encounter Injury intent: intentional self-harm PTSD (post-traumatic stress disorder) F43.10 Bipolar disorder with depression F31.9 Suicide attempt T14.91XA Panic attacks F41.0 History of OCD (obsessive compulsive disorder) Z86.59
[2025-03-05 19:41] VITALS: BP 122/71; PULSE 106; RESP 18; TEMP 36.8; O2SAT 97
[2025-03-06 06:00] VITALS: BP 101/60; PULSE 85; RESP 16; TEMP 36.4; O2SAT 98
[2025-03-06] MEDS: venlafaxine ER (24HR) 75 mg Capsule 150 MG PO (08:21)
--- NOTE | 2025-03-06 09:01 | NUR.SHIFT ---
States that he slept okay last night. He denies anxiety and depression, but states that he is just waking up. No reports of SI/HI or hallucinations. Denies pain. He is calm and cooperative on assessment.
[2025-03-06 14:00] VITALS: BP 126/78; PULSE 80; RESP 16; TEMP 36.7; O2SAT 99
--- NOTE | 2025-03-06 19:04 | P.NPUPN_ITS ---
Subjective NPU 2 Subjective: Patient presented today reporting that things are going fine. He reports that he talked to the social work team and was happy to know that they were not looking at places in [place] it was just that there was a program that was affiliated with the place in [place] and that was what the reference was 2. He reports that he continues to feel that he has better command of his impulses and he is certainly not had any significant issues for weeks. He denied any side effects to medications. Mental Status Exam 2 MSE Comments: This is a well-nourished, well-developed, white male, in hospital scrubs seen in room with adequate grooming and good eye contact. There was evidence of mild psychomotor retardation There was no evidence of any abnormal involuntary motor movements. He was cooperative with exam. Speech was normal in rhythm, rate and volume, and normal in production. Mood described as doing better. His affect was congruent.Thought process was linear and organized. Thought content: patient denies active homicidal ideation or suicidal ideation. Patient denied any auditory or visual hallucinations. There was no evidence of delusional thinking. Attention span remained poor. Insight is poor. Judgment is limited. Impulse control is guarded. The is alert and oriented to person, place and time. Vitals/I&O/Wt Last Vital Signs Temp 98.0 F 03/06/25 19:25 Pulse 92 03/06/25 19:25 Resp 19 H 03/06/25 19:25 BP 135/88 03/06/25 19:25 Pulse Ox 100 03/06/25 19:25 O2 Del Method Room Air 03/06/25 19:25 O2 Flow Rate 6 01/19/25 04:45 FiO2 24 01/20/25 12:24 Physical Exam 2 Urinary Catheter Management: Perez: Cath Placed During This Visit: yes Urinary Catheter Date of Insertion: 01/19/25 Urinary Catheter Time of Insertion: 05:15 Data NPU 02/09/25 09:01 01/20/25 05:45 A&P Assessment and plan 1. Suicidal behavior with attempted self-injury: 2. Multiple drug overdose: 3. Toxic encephalopathy: 4. Suicidal ideation: 5. Major depressive disorder: 6. Attention-deficit hyperactivity disorder, unspecified type: 7. Alcohol abuse: Patient has this history of alcohol abuse. Ethanol level was 0 8. Borderline personality disorder: 9. Drug overdose: 10. Suicidal ideations: 11. PTSD (post-traumatic stress disorder): 12. Bipolar disorder with depression: 13. Suicide attempt: 14. Panic attacks: 15. History of OCD (obsessive compulsive disorder): Plan: 24-year-old white male extensive history of multiple inpatient hospitalizations with borderline personality traits, dysthymia, extremely poor coping skills and signficant attention seeking behavior who presents once again with suicidal ideation with overdose with intubation in ICU. Patient has poor impulse control and continued affective instability. 1. Encourage individual, group and milieu therapy. 2. Recommend sober living treatment at the highest level of care to which the patient is willing to commit. Possibility for rehab bed sooner rather than later so we will need to address whether he is safe and/or ready for this option. 3. Patient remaining on 1-1. 4. Will simplify medication regimen, these medications have been unhelpful and patient requires more intense psychotherapy possibly in [facility] facility. Patient requires case management services, intense DBT services. 5. Continue Effexor XR 150mg daily, continue [place] 450mg bid, 6. Patient under guardianship. He continues to remain steady here. The patient lacks ability to manage emotions and requires intense services such as DBT to help with managing poor impulse control. In an uncontrolled environment, patient would frequently and impulsively overdose on medications. 7. Continue propranolol at 10mg tid, increase valium 2.5mg am, 2.5mg at 3pm 5mg at night. Patient appears less irritable in the absence of ritalin. 8. Patient has interview with [facility] 02/24/2025. Awaiting response. But also pursuing alternatives still. PDMP PDMP Reviewed: Not Reviewed Involuntary Hold Information 2 Hold Status: Legal Status: Active Guardianship Date/Time Hold Expires: [facility] 96 Hour Hold: 96 Hour Involuntary Admission: Yes Other Hold: Hold End Date: 07/01/24 Attestations NPU 2 Medical Necessity Statement*: Inpatient hospitalization is medically necessary and the clinically appropriate intervention at this time. We will monitor medications and make changes as indicated. The patient's likely length of stay will be hopefully 5-7 days as we search for placement. Coding Level of Care Code Acute Code for [facility] Fwd Diagnoses Suicidal behavior with attempted self-injury T14.91XA Multiple drug overdose T50.911A Toxic encephalopathy G92.9 Suicidal ideation R45.851 Major depressive disorder F32.9 Attention-deficit hyperactivity disorder, unspecified type F90.9 Alcohol abuse F10.10 Borderline personality disorder F60.3 Drug overdose T50.902A Encounter type: initial encounter Injury intent: intentional self-harm PTSD (post-traumatic stress disorder) F43.10 Bipolar disorder with depression F31.9 Suicide attempt T14.91XA Panic attacks F41.0 History of OCD (obsessive compulsive disorder) Z86.59
[2025-03-06 19:25] VITALS: BP 135/88; PULSE 92; RESP 19; TEMP 36.7; O2SAT 100
--- NOTE | 2025-03-06 23:23 | PC.NURSE ---
Patient came to Nurses station C/O feeling increased anxiety. The patient and I discussed the situation and opted to take a some Zyprexa for his anxiety.
[2025-03-07 06:00] VITALS: BP 120/69; PULSE 65; RESP 17; O2SAT 97
[2025-03-07] MEDS: venlafaxine ER (24HR) 75 mg Capsule 150 MG PO (08:10)
--- NOTE | 2025-03-07 09:54 | NUR.SHIFT ---
Pt states that he slept okay last night. When he was asked about his anxiety and depression he states I don't really wanna talk about it he states that he had a bad dream last night and doens't want that to be a factor in him deciding if he is anxious or depressed this morning. There are no reports of SI/HI or hallucination. He is calm and cooperative on assessment. He likes to joke around this morning with staff and peers.
--- NOTE | 2025-03-07 13:47 | P.NPUPN_ITS ---
Subjective NPU 2 Subjective: Patient presented today reporting that he has been doing well with his meetings he is having with his outpatient crisis team. He reports that they are going to meet every Monday and and having someone he is talking to and knows he is going to see regularly gives him another thing to break up the but not knee. He denied any new issues and continues to be compliant and patiently awaiting the possibility of placement. He denied any side effects to his medication. Mental Status Exam 2 MSE Comments: This is a well-nourished, well-developed, white male, in hospital scrubs seen in room with adequate grooming and good eye contact. There was evidence of mild psychomotor retardation There was no evidence of any abnormal involuntary motor movements. He was cooperative with exam. Speech was normal in rhythm, rate and volume, and normal in production. Mood described as doing better. His affect was congruent.Thought process was linear and organized. Thought content: patient denies active homicidal ideation or suicidal ideation. Patient denied any auditory or visual hallucinations. There was no evidence of delusional thinking. Attention span remained poor. Insight is poor. Judgment is limited. Impulse control is guarded. The is alert and oriented to person, place and time. Vitals/I&O/Wt Last Vital Signs Temp 98.0 F 03/06/25 19:25 Pulse 65 03/07/25 06:00 Resp 17 03/07/25 06:00 BP 120/69 03/07/25 06:00 Pulse Ox 97 03/07/25 06:00 O2 Del Method Room Air 03/07/25 06:00 O2 Flow Rate 6 01/19/25 04:45 FiO2 24 01/20/25 12:24 Physical Exam 2 Urinary Catheter Management: Perez: Cath Placed During This Visit: yes Urinary Catheter Date of Insertion: 01/19/25 Urinary Catheter Time of Insertion: 05:15 Data NPU 02/09/25 09:01 01/20/25 05:45 Micro: Microbiology 01/19/25 10:10 Gram Stain - Final Sputum - Endotracheal Tube Aspirate Sputum Culture - Final Microbiology 01/19/25 10:10 Sputum - Endotracheal Tube Aspirate Gram Stain - Final 01/19/25 10:10 Sputum - Endotracheal Tube Aspirate Sputum Culture - Final A&P Assessment and plan 1. Suicidal behavior with attempted self-injury: 2. Multiple drug overdose: 3. Toxic encephalopathy: 4. Suicidal ideation: 5. Major depressive disorder: 6. Attention-deficit hyperactivity disorder, unspecified type: 7. Alcohol abuse: Patient has this history of alcohol abuse. Ethanol level was 0 8. Borderline personality disorder: 9. Drug overdose: 10. Suicidal ideations: 11. PTSD (post-traumatic stress disorder): 12. Bipolar disorder with depression: 13. Suicide attempt: 14. Panic attacks: 15. History of OCD (obsessive compulsive disorder): Plan: 24-year-old white male extensive history of multiple inpatient hospitalizations with borderline personality traits, dysthymia, extremely poor coping skills and signficant attention seeking behavior who presents once again with suicidal ideation with overdose with intubation in ICU. Patient has poor impulse control and continued affective instability. 1. Encourage individual, group and milieu therapy. 2. Recommend sober living treatment at the highest level of care to which the patient is willing to commit. Possibility for rehab bed sooner rather than later so we will need to address whether he is safe and/or ready for this option. 3. Patient remaining on 1-1. 4. Will simplify medication regimen, these medications have been unhelpful and patient requires more intense psychotherapy possibly in [facility] facility. Patient requires case management services, intense DBT services. 5. Continue Effexor XR 150mg daily, continue [place] 450mg bid, 6. Patient under guardianship. He continues to remain steady here. The patient lacks ability to manage emotions and requires intense services such as DBT to help with managing poor impulse control. In an uncontrolled environment, patient would frequently and impulsively overdose on medications. 7. Continue propranolol at 10mg tid, increase valium 2.5mg am, 2.5mg at 3pm 5mg at night. Patient appears less irritable in the absence of ritalin. 8. Patient [facility] 02/24/2025. Awaiting response. But also pursuing alternatives still. PDMP PDMP Reviewed: Not Reviewed Involuntary Hold Information 2 Hold Status: Legal Status: Active Guardianship Date/Time Hold Expires: [facility] Hour Hold: 96 Hour Involuntary Admission: Yes Other Hold: Hold End Date: 07/01/24 Attestations NPU 2 Medical Necessity Statement*: Inpatient hospitalization is medically necessary and the clinically appropriate intervention at this time. We will monitor medications and make changes as indicated. The patient's likely length of stay will be hopefully 5-7 days as we search for placement. Coding Level of Care Code Acute Code for Chg Fwd Diagnoses Suicidal behavior with attempted self-injury T14.91XA Multiple drug overdose T50.911A Toxic encephalopathy G92.9 Suicidal ideation R45.851 Major depressive disorder F32.9 Attention-deficit hyperactivity disorder, unspecified type F90.9 Alcohol abuse F10.10 Borderline personality disorder F60.3 Drug overdose T50.902A Encounter type: initial encounter Injury intent: intentional self-harm PTSD (post-traumatic stress disorder) F43.10 Bipolar disorder with depression F31.9 Suicide attempt T14.91XA Panic attacks F41.0 History of OCD (obsessive compulsive disorder) Z86.59
[2025-03-07 14:00] VITALS: BP 126/76; PULSE 81; RESP 18; TEMP 36.8; O2SAT 98
[2025-03-07 19:27] VITALS: BP 119/71; PULSE 100; RESP 18; TEMP 36.7; O2SAT 96
[2025-03-08 06:00] VITALS: BP 118/71; PULSE 77; RESP 18; TEMP 36.6; O2SAT 96
[2025-03-08] MEDS: venlafaxine ER (24HR) 75 mg Capsule 150 MG PO (08:34)
--- NOTE | 2025-03-08 10:44 | NUR.SHIFT ---
Pt states that he slept off and on last night. He states that his anxiety and depression are both mild. No reports of hallucinations. He states that he has passing SI thoughts at all times, but handles them well. No reports of HI. He is calm and cooperative on assessement. He is more elated and in a good humor today.
--- NOTE | 2025-03-08 13:26 | P.NPUPN_ITS ---
Subjective NPU 2 Subjective: Patient presented today reporting that he is managing the situation as best he can. He reports it is frustrating to know that different people can find a place and get out of here and he is really been unable to find any possibilities. He continues to take his medication without issue and is able to manage his frustration tolerance fairly well. He denied any side effects from medication. Mental Status Exam 2 MSE Comments: This is a well-nourished, well-developed, white male, in hospital scrubs seen in room with adequate grooming and good eye contact. There was evidence of mild psychomotor retardation There was no evidence of any abnormal involuntary motor movements. He was cooperative with exam. Speech was normal in rhythm, rate and volume, and normal in production. Mood described as doing better. His affect was congruent.Thought process was linear and organized. Thought content: patient denies active homicidal ideation or suicidal ideation. Patient denied any auditory or visual hallucinations. There was no evidence of delusional thinking. Attention span remained poor. Insight is poor. Judgment is limited. Impulse control is guarded. The is alert and oriented to person, place and time. Vitals/I&O/Wt Last Vital Signs Temp 98.9 F 03/08/25 06:00 Pulse 119 H 03/08/25 06:00 Resp 18 03/08/25 06:00 BP 116/84 03/08/25 06:00 Pulse Ox 97 03/08/25 06:00 O2 Del Method Room Air 03/08/25 06:00 O2 Flow Rate 6 01/19/25 04:45 FiO2 24 01/20/25 12:24 Weight last 48 hrs Weight 104.78 kg Physical Exam 2 Urinary Catheter Management: Perez: Cath Placed During This Visit: yes Urinary Catheter Date of Insertion: 01/19/25 Urinary Catheter Time of Insertion: 05:15 Data NPU 02/09/25 09:01 01/20/25 05:45 A&P Assessment and plan 1. Suicidal behavior with attempted self-injury: 2. Multiple drug overdose: 3. Toxic encephalopathy: 4. Suicidal ideation: 5. Major depressive disorder: 6. Attention-deficit hyperactivity disorder, unspecified type: 7. Alcohol abuse: Patient has this history of alcohol abuse. Ethanol level was 0 8. Borderline personality disorder: 9. Drug overdose: 10. Suicidal ideations: 11. PTSD (post-traumatic stress disorder): 12. Bipolar disorder with depression: 13. Suicide attempt: 14. Panic attacks: 15. History of OCD (obsessive compulsive disorder): Plan: 24-year-old white male extensive history of multiple inpatient hospitalizations with borderline personality traits, dysthymia, extremely poor coping skills and signficant attention seeking behavior who presents once again with suicidal ideation with overdose with intubation in ICU. Patient has poor impulse control and continued affective instability. 1. Encourage individual, group and milieu therapy. 2. Recommend sober living treatment at the highest level of care to which the patient is willing to commit. Possibility for rehab bed sooner rather than later so we will need to address whether he is safe and/or ready for this option. 3. Patient remaining on 1-1. 4. Will simplify medication regimen, these medications have been unhelpful and patient requires more intense psychotherapy possibly in prison facility. Patient requires case management services, intense DBT services. 5. Continue Effexor XR 150mg daily, continue [place] 450mg bid, 6. Patient under guardianship. He continues to remain steady here. The patient lacks ability to manage emotions and requires intense services such as DBT to help with managing poor impulse control. In an uncontrolled environment, patient would frequently and impulsively overdose on medications. 7. Continue propranolol at 10mg tid, increase valium 2.5mg am, 2.5mg at 3pm 5mg at night. Patient appears less irritable in the absence of ritalin. 8. Patient has [facility] with [facility] 02/24/2025. Awaiting response. But also pursuing alternatives still. PDMP PDMP Reviewed: Not Reviewed Involuntary Hold Information 2 Hold Status: Legal Status: Active Guardianship Date/Time Hold Expires: [facility] 96 Hour Hold: 96 Hour Involuntary Admission: Yes Other Hold: Hold End Date: 07/01/24 Attestations NPU 2 Medical Necessity Statement*: Inpatient hospitalization is medically necessary and the clinically appropriate intervention at this time. We will monitor medications and make changes as indicated. The patient's likely length of stay will be hopefully 5-7 days as we search for placement. Coding Level of Care Code Acute Code for Chg Fwd Diagnoses Suicidal behavior with attempted self-injury T14.91XA Multiple drug overdose T50.911A Toxic encephalopathy G92.9 Suicidal ideation R45.851 Major depressive disorder F32.9 Attention-deficit hyperactivity disorder, unspecified type F90.9 Alcohol abuse F10.10 Borderline personality disorder F60.3 Drug overdose T50.902A Encounter type: initial encounter Injury intent: intentional self-harm PTSD (post-traumatic stress disorder) F43.10 Bipolar disorder with depression F31.9 Suicide attempt T14.91XA Panic attacks F41.0 History of OCD (obsessive compulsive disorder) Z86.59
[2025-03-08 14:00] VITALS: BP 138/86; PULSE 86; RESP 18; TEMP 37; O2SAT 97
[2025-03-08] MEDS: benzocaine 20% 7 gm 1 APPLIC MUCOUS MEM (19:01)
[2025-03-08 19:39] VITALS: BP 142/81; PULSE 97; RESP 18; TEMP 37; O2SAT 97
--- NOTE | 2025-03-08 22:35 | PC.NURSE ---
pt interaction there has been another pt that his been intrusive with staff and other patients. maya has continuously shown growth with his decisions to walk away from the issues at hand while using his coping techniques.
[2025-03-09 06:00] VITALS: BP 109/67; PULSE 76; RESP 16; TEMP 36.4; O2SAT 96
[2025-03-09] MEDS: venlafaxine ER (24HR) 75 mg Capsule 150 MG PO (08:01)
[2025-03-09 14:00] VITALS: BP 116/84; PULSE 119; RESP 18; TEMP 37.2; O2SAT 97
--- NOTE | 2025-03-09 14:07 | PC.NURSE ---
Pt. said he refuses to talk to Dr. Bowie ever again.
--- NOTE | 2025-03-09 14:15 | PC.NURSE ---
Pt. asked if he could put a snack in his box because he had a lozenge in his mouth. Signee told pt. he could leave it the box there was still 45 min left of snack time and pt. started yelling as he walked away from the nurses station saying every fucking day the rules change here .
--- NOTE | 2025-03-09 17:27 | P.NPUPN_ITS ---
Subjective NPU 2 Subjective: Patient presents today reporting that he was frustrated about getting a letter saying that the insurance company has stopped paying and he thought that meant he was due to get the discharge and then when I advised him that they have no bearing on the decision making process that we have he was frustrated but ultimately was able to regain his composure and had just expressed that he is really wanting to get out as soon as possible and get along with his life and it is frustrating that other people that seem to have really big challenges can find places to go but he has been unable to. He denies any side effects of the medication. Mental Status Exam 2 MSE Comments: This is a well-nourished, well-developed, white male, in hospital scrubs seen in room with adequate grooming and good eye contact. There was evidence of mild psychomotor retardation There was no evidence of any abnormal involuntary motor movements. He was cooperative with exam. Speech was normal in rhythm, rate and volume, and normal in production. Mood described as doing better. His affect was congruent.Thought process was linear and organized. Thought content: patient denies active homicidal ideation or suicidal ideation. Patient denied any auditory or visual hallucinations. There was no evidence of delusional thinking. Attention span remained poor. Insight is poor. Judgment is limited. Impulse control is guarded. The is alert and oriented to person, place and time. Vitals/I&O/Wt Last Vital Signs Temp 98.9 F 03/09/25 14:00 Pulse 119 H 03/09/25 14:00 Resp 18 03/09/25 14:00 BP 116/84 03/09/25 14:00 Pulse Ox 97 03/09/25 14:00 O2 Del Method Room Air 03/09/25 06:00 O2 Flow Rate 6 01/19/25 04:45 FiO2 24 01/20/25 12:24 Weight last 48 hrs Weight 104.78 kg Physical Exam 2 Urinary Catheter Management: Perez: Cath Placed During This Visit: yes Urinary Catheter Date of Insertion: 01/19/25 Urinary Catheter Time of Insertion: 05:15 Data NPU 02/09/25 09:01 01/20/25 05:45 A&P Assessment and plan 1. Suicidal behavior with attempted self-injury: 2. Multiple drug overdose: 3. Toxic encephalopathy: 4. Suicidal ideation: 5. Major depressive disorder: 6. Attention-deficit hyperactivity disorder, unspecified type: 7. Alcohol abuse: Patient has this history of alcohol abuse. Ethanol level was 0 8. Borderline personality disorder: 9. Drug overdose: 10. Suicidal ideations: 11. PTSD (post-traumatic stress disorder): 12. Bipolar disorder with depression: 13. Suicide attempt: 14. Panic attacks: 15. History of OCD (obsessive compulsive disorder): Plan: 24-year-old white male extensive history of multiple inpatient hospitalizations with borderline personality traits, dysthymia, extremely poor coping skills and signficant attention seeking behavior who presents once again with suicidal ideation with overdose with intubation in ICU. Patient has poor impulse control and continued affective instability. 1. Encourage individual, group and milieu therapy. 2. Recommend sober living treatment at the highest level of care to which the patient is willing to commit. Possibility for rehab bed sooner rather than later so we will need to address whether he is safe and/or ready for this option. 3. Patient remaining on 1-1. 4. Will simplify medication regimen, these medications have been unhelpful and patient requires more intense psychotherapy possibly in detention facility. Patient requires case management services, intense DBT services. 5. Continue Effexor XR 150mg daily, continue [place] 450mg bid, 6. Patient under guardianship. He continues to remain steady here. The patient lacks ability to manage emotions and requires intense services such as DBT to help with managing poor impulse control. In an uncontrolled environment, patient would frequently and impulsively overdose on medications. 7. Continue propranolol at 10mg tid, increase valium 2.5mg am, 2.5mg at 3pm 5mg at night. Patient appears less irritable in the absence of ritalin. 8. Patient [facility] 02/[facility]25. Awaiting response. But also pursuing alternatives still. PDMP PDMP Reviewed: Not Reviewed Involuntary Hold Information 2 Hold Status: Legal Status: Active Guardianship Date/Time Hold Expires: [facility] Hour Hold: 96 Hour Involuntary Admission: Yes Other Hold: Hold End Date: 07/01/24 Attestations NPU 2 Medical Necessity Statement*: Inpatient hospitalization is medically necessary and the clinically appropriate intervention at this time. We will monitor medications and make changes as indicated. The patient's likely length of stay will be hopefully 5-7 days as we search for placement. Coding Level of Care Code Acute Code for g Fwd Diagnoses Suicidal behavior with attempted self-injury T14.91XA Multiple drug overdose T50.911A Toxic encephalopathy G92.9 Suicidal ideation R45.851 Major depressive disorder F32.9 Attention-deficit hyperactivity disorder, unspecified type F90.9 Alcohol abuse F10.10 Borderline personality disorder F60.3 Drug overdose T50.902A Encounter type: initial encounter Injury intent: intentional self-harm PTSD (post-traumatic stress disorder) F43.10 Bipolar disorder with depression F31.9 Suicide attempt T14.91XA Panic attacks F41.0 History of OCD (obsessive compulsive disorder) Z86.59
[2025-03-09 22:00] VITALS: BP 134/83; PULSE 101; RESP 17; TEMP 36.9; O2SAT 98
--- NOTE | 2025-03-10 04:09 | PC.NURSE ---
pt behavior pt was upset with another pt he had been having issues with for the shift. pt went to his room and hit his head on his door frame. pt stopped when directed to. red rosario noted. physician informed. pt remorseful for his actions at this time.
[2025-03-10 06:00] VITALS: BP 129/74; PULSE 80; RESP 17; TEMP 36.6; O2SAT 98
[2025-03-10] MEDS: venlafaxine ER (24HR) 75 mg Capsule 150 MG PO (07:59)
[2025-03-10 14:00] VITALS: BP 135/81; PULSE 89; RESP 18; TEMP 36.8; O2SAT 98
--- NOTE | 2025-03-10 17:59 | PC.NURSE ---
Pt. would not wake up for 1800 meds. Meds returned.
--- NOTE | 2025-03-10 19:11 | P.NPUPN_ITS ---
Subjective NPU 2 Subjective: The patient continue to report frustration at not being able to leave here. He had stated that he was upset that the insurance company felt that they were no longer going to pay and stated that he did not wish to have a bill. He had reported that he felt that he had achieved the maximum benefit and stated that he had worked things out at home and stated that he had an agreement to put all of his medications in a safe to prevent him from having access to his medications. The patient had reported adequate sleep with his Valium. He continued to report that he had a goal to be able to better manage his mood fluctuations and continued to minimize the significance that external stressors played in his emotional meltdowns that eventually led to hit him overdosing. The patient denied any feelings of hopelessness. He did not endorse any suicidal ideation. He had reported that he never wished to return here to the hospital again. Mental Status Exam 2 MSE Comments: This is a well-nourished, well-developed, white male, in hospital scrubs seen in room with adequate grooming and good eye contact. There was evidence of mild psychomotor retardation There was no evidence of any abnormal involuntary motor movements. He was cooperative with exam. Speech was normal in rhythm, rate and volume, and normal in production. Mood described as frustrated. His affect was irritable today. Thought process was linear and organized. Thought content: patient denies active homicidal ideation or suicidal ideation. Patient denied any auditory or visual hallucinations. There was no evidence of delusional thinking. Attention span remained poor. Insight is impaired. Judgment is limited. Impulse control is guarded. The is alert and oriented to person, place and time. Vitals/I&O/Wt Last Vital Signs Temp 98.3 F 03/10/25 14:00 Pulse 89 03/10/25 14:00 Resp 18 03/10/25 14:00 BP 135/81 03/10/25 14:00 Pulse Ox 98 03/10/25 14:00 O2 Del Method Room Air 03/10/25 06:00 O2 Flow Rate 6 01/19/25 04:45 FiO2 24 01/20/25 12:24 Weight last 48 hrs Weight 104.78 kg Physical Exam 2 Urinary Catheter Management: Perez: Cath Placed During This Visit: yes Urinary Catheter Date of Insertion: 01/19/25 Urinary Catheter Time of Insertion: 05:15 Data NPU 02/09/25 09:01 01/20/25 05:45 A&P Assessment and plan 1. Suicidal behavior with attempted self-injury: 2. Multiple drug overdose: 3. Toxic encephalopathy: 4. Suicidal ideation: 5. Major depressive disorder: 6. Attention-deficit hyperactivity disorder, unspecified type: 7. Alcohol abuse: Patient has this history of alcohol abuse. Ethanol level was 0 8. Borderline personality disorder: 9. Drug overdose: 10. Suicidal ideations: 11. PTSD (post-traumatic stress disorder): 12. Bipolar disorder with depression: 13. Suicide attempt: 14. Panic attacks: 15. History of OCD (obsessive compulsive disorder): Plan: 24-year-old white male extensive history of multiple inpatient hospitalizations with borderline personality traits, dysthymia, extremely poor coping skills and signficant attention seeking behavior who presents once again with suicidal ideation with overdose with intubation in ICU. Patient has poor impulse control and continued affective instability. 1. Encourage individual, group and milieu therapy. 2. Recommend sober living treatment at the highest level of care to which the patient is willing to commit. Possibility for rehab bed sooner rather than later so we will need to address whether he is safe and/or ready for this option. 3. Patient remaining on 1-1. 4. Will simplify medication regimen, these medications have been unhelpful and patient requires more intense psychotherapy possibly in half-way facility. Patient requires case management services, intense DBT services. 5. Continue Effexor XR 150mg daily, continue [place] 450mg bid, 6. Patient under guardianship. He continues to remain steady here. The patient lacks ability to manage emotions and requires intense services such as DBT to help with managing poor impulse control. In an uncontrolled environment, patient would frequently and impulsively overdose on medications. 7. Continue propranolol at 10mg tid, increase valium 2.5mg am, 2.5mg at 3pm 5mg at night. 8. Continue to seek treatment in locked facility for now. PDMP PDMP Reviewed: Not Reviewed Involuntary Hold Information 2 Hold Status: Legal Status: Active Guardianship Date/Time Hold Expires: [facility] 96 Hour Hold: 96 Hour Involuntary Admission: Yes Other Hold: Hold End Date: 07/01/24 Attestations NPU 2 Medical Necessity Statement*: Inpatient hospitalization is medically necessary and the clinically appropriate intervention at this time. We will monitor medications and make changes as indicated. The patient's likely length of stay will be hopefully 5-7 days as we search for placement. Coding Level of Care Code Acute Code for Chg Fwd Diagnoses Suicidal behavior with attempted self-injury T14.91XA Multiple drug overdose T50.911A Toxic encephalopathy G92.9 Suicidal ideation R45.851 Major depressive disorder F32.9 Attention-deficit hyperactivity disorder, unspecified type F90.9 Alcohol abuse F10.10 Borderline personality disorder F60.3 Drug overdose T50.902A Encounter type: initial encounter Injury intent: intentional self-harm PTSD (post-traumatic stress disorder) F43.10 Bipolar disorder with depression F31.9 Suicide attempt T14.91XA Panic attacks F41.0 History of OCD (obsessive compulsive disorder) Z86.59
[2025-03-10 21:07] VITALS: BP 127/81; PULSE 95; RESP 17; TEMP 36.8; O2SAT 97
[2025-03-11 06:00] VITALS: BP 143/81; PULSE 68; RESP 16; TEMP 36.6; O2SAT 96
[2025-03-11] MEDS: venlafaxine ER (24HR) 75 mg Capsule 150 MG PO (09:22)
--- NOTE | 2025-03-11 17:14 | PC.NURSE ---
Pt. screaming at nurses station window demanding to talk to Dr. Carey. Signee assured pt. the DrForrest could hear his request. Pt. mad about the dinner trays signee walked down the ibarra opened pt.'s door and informed that it was dinner time. Pt. continued to stay in bed. Signee passed out dinner trays and when taking the food cart back to nurses station stopped by pt. door again and informed pt. trays was here, pt. continued to sleep. Pt. also upset that he slept through his 1500 medication pass. Signee just put medications back up d/t pt.'s Valium is due again at 2100 in a larger dose. Signee informed pt. that insurance underwriter sales attempted to wake up pt. Pt. states he does not believe there was an attempt for him to be woken up.
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
[2025-03-11] MEDS: haloperidol inj 5 mg/mL INJ 1 mL IM (17:22)
--- NOTE | 2025-03-11 17:42 | P.NPUPN_ITS ---
Subjective NPU 2 Subjective: 24-year-old male with borderline persona lity disorder, PTSD, and dysthymic disorder admitted due to overdose on medications. Patient had insisted that he be allowed to return back to his home. He perseverated on this and appeared acutely agitated to the extent that he had an explosive outburst requiring restraint and the use of as needed Haldol and Benadryl. He had been aggressive towards staff and continued to show evidence of poor frustration tolerance as he had problems with maintaining control of his impulses. Prior to that time of the outburst, he had minimized having thoughts of hurting himself or others but proceeded to engage in head-banging. Mental Status Exam 2 MSE Comments: This is a well-nourished, well-developed, white male, in hospital scrubs seen in room with poor grooming and fleeting eye contact. There was evidence of mild psychomotor retardation There was no evidence of any abnormal involuntary motor movements. He was minimally cooperative with exam today. Speech was normal in rhythm, rate and volume, and normal in production. Mood described as mad. His affect was agitated. Thought process was linear and organized. Thought content: patient denies active homicidal ideation or suicidal ideation. Patient denied any auditory or visual hallucinations. There was no evidence of delusional thinking. Attention span remained poor. Insight is impaired. Judgment is limited. Impulse control is guarded. The is alert and oriented to person, place and time. Vitals/I&O/Wt Last Vital Signs Temp 97.8 F 03/11/25 06:00 Pulse 68 03/11/25 06:00 Resp 16 03/11/25 06:00 BP 143/81 03/11/25 06:00 Pulse Ox 96 03/11/25 06:00 O2 Del Method Room Air 03/11/25 06:00 O2 Flow Rate 6 01/19/25 04:45 FiO2 24 01/20/25 12:24 Physical Exam 2 Urinary Catheter Management: Perez: Cath Placed During This Visit: yes Urinary Catheter Date of Insertion: 01/19/25 Urinary Catheter Time of Insertion: 05:15 Data NPU 02/09/25 09:01 01/20/25 05:45 A&P Assessment and plan 1. Suicidal behavior with attempted self-injury: 2. Multiple drug overdose: 3. Toxic encephalopathy: 4. Suicidal ideation: 5. Major depressive disorder: 6. Attention-deficit hyperactivity disorder, unspecified type: 7. Alcohol abuse: Patient has this history of alcohol abuse. Ethanol level was 0 8. Borderline personality disorder: 9. Drug overdose: 10. Suicidal ideations: 11. PTSD (post-traumatic stress disorder): 12. Bipolar disorder with depression: 13. Suicide attempt: 14. Panic attacks: 15. History of OCD (obsessive compulsive disorder): Plan: 24-year-old white male extensive history of multiple inpatient hospitalizations with borderline personality traits, dysthymia, extremely poor coping skills and signficant attention seeking behavior who presents once again with suicidal ideation with overdose with intubation in ICU. Patient has poor impulse control and continued affective instability. 1. Encourage individual, group and milieu therapy. 2. Recommend sober living treatment at the highest level of care to which the patient is willing to commit. Possibility for rehab bed sooner rather than later so we will need to address whether he is safe and/or ready for this option. 3. Patient remaining on 1-1. 4. Will simplify medication regimen, these medications have been unhelpful and patient requires more intense psychotherapy possibly in half-way facility. Patient requires case management services, intense DBT services. 5. Continue Effexor XR 150mg daily, continue [place] 450mg bid, 6. Patient under guardianship. He continues to remain steady here. The patient lacks ability to manage emotions and requires intense services such as DBT to help with managing poor impulse control. In an uncontrolled environment, patient would frequently and impulsively overdose on medications. 7. Continue propranolol at 10mg tid, increase valium 2.5mg am, 2.5mg at 3pm 5mg at night. 8. Continue to seek treatment in locked facility. Patient to have Head Ct/Medical consult. PDMP PDMP Reviewed: Not Reviewed Involuntary Hold Information 2 Hold Status: Legal Status: Active Guardianship Date/Time Hold Expires: [facility] 96 Hour Hold: 96 Hour Involuntary Admission: Yes Other Hold: Hold End Date: 07/01/24 Attestations NPU 2 Medical Necessity Statement*: Inpatient hospitalization is medically necessary and the clinically appropriate intervention at this time. We will monitor medications and make changes as indicated. The patient's likely length of stay will be hopefully 5-7 days as we search for placement. Coding Level of Care Code Acute Code for Chg Fwd Diagnoses Suicidal behavior with attempted self-injury T14.91XA Multiple drug overdose T50.911A Toxic encephalopathy G92.9 Suicidal ideation R45.851 Major depressive disorder F32.9 Attention-deficit hyperactivity disorder, unspecified type F90.9 Alcohol abuse F10.10 Borderline personality disorder F60.3 Drug overdose T50.902A Encounter type: initial encounter Injury intent: intentional self-harm PTSD (post-traumatic stress disorder) F43.10 Bipolar disorder with depression F31.9 Suicide attempt T14.91XA Panic attacks F41.0 History of OCD (obsessive compulsive disorder) Z86.59
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
[2025-03-11] MEDS: diphenhydrAMINE 50 mg/mL SDV 1mL IM (18:01)
--- NOTE | 2025-03-11 18:14 | PC.NURSE ---
Signee checked on pt.'s restraints and pt.'s orientation. Also informed pt. signee had put in an order for a CT. Pt. stated he was going to refuse the CT. Pt. stated he his did hurt, and his anxiety was still very high.
--- NOTE | 2025-03-11 18:21 | PC.NURSE ---
Pt. released from restraints pt. stated there would be no more problems and he did not know why he did that. Signee informed pt. staff understood his frustration. Pt. said he knows he can not take it out on staff. Pt. was hungry and was given a dinner tray.
[2025-03-11 19:46] VITALS: BP 104/66; PULSE 115; RESP 18; TEMP 36.5; O2SAT 98
--- NOTE | 2025-03-11 21:57 | PC.NURSE ---
Discharge papers were not able to be signed by patient because he was be taken into custody by the [place] [employer] petra edne in hand cuffs out of the [facility] facility.
--- NOTE | 2025-03-11 22:11 | PC.NURSE ---
An attempt was made to contact Pt. guardian and a message was left.
--- NOTE | 2025-03-11 22:16 | PC.NURSE ---
Moved pt. meds to [facility] in the morning.
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
== END 2025-03-11 21:47 | DRG 917 ==
LOC: ICU 06:48 → NP 01-21 17:37 → ICU 02-13 02:54 → OPOB 02-13 02:54
PROVIDERS: Emergency Medicine; Psychiatry & Neurology Psychiatry; Student in an Organized Health Care Education/Training Program; Admitting Provider Internal Medicine; Visit Provider Psychiatry & Neurology Psychiatry
DX: T42.6X2A Poisoning by other antiepileptic and sedative-hypnotic drugs, intentional self-harm, initial encounter (principal); G92.8 Other toxic encephalopathy; J96.01 Acute respiratory failure with hypoxia; F60.3 Borderline personality disorder; F90.9 Attention-deficit hyperactivity disorder, unspecified type; Z91.51 Personal history of suicidal behavior; F32.9 Major depressive disorder, single episode, unspecified; F43.10 Post-traumatic stress disorder, unspecified; G90.81 Serotonin syndrome; F41.0 Panic disorder [episodic paroxysmal anxiety]; F42.9 Obsessive-compulsive disorder, unspecified; F63.9 Impulse disorder, unspecified; F17.220 Nicotine dependence, chewing tobacco, uncomplicated; F17.210 Nicotine dependence, cigarettes, uncomplicated; F17.290 Nicotine dependence, other tobacco product, uncomplicated; S09.90XA Unspecified injury of head, initial encounter; W22.01XA Walked into wall, initial encounter; Y92.230 Patient room in hospital as the place of occurrence of the external cause; F34.1 Dysthymic disorder; W01.0XXA Fall on same level from slipping, tripping and stumbling without subsequent striking against object, initial encounter; R45.1 Restlessness and agitation; F10.10 Alcohol abuse, uncomplicated
CPT/HCPCS: 36415; 36416; 36600; 51702; 70450; 71045; 80051; 80053; 80164; 80178; 80306; 80307; 81001; 82140; 82330; 82805; 82962; 83605; 83735; 84100; 84439; 84443; 84550; 85025; 85610; 85730; 87070; 87205; 90935; 93005; 93010; 94002; 94003; 94799; 96365; 96366; 96367; 96372; 96374; 96376; 97150; 97165; 99285; 99291; 99292; J0330; J1200; J1630; J1644; J2060; J2470; J2543; J2704; J3010; J3486; J3490; J7030; J9999; Q0161; Q0162